=== PATIENT | female | born 1940 | race Caucasian/White ===

== ENCOUNTER 2019-07-06 13:42 | Outpatient (CLI) | payer MEDICARE, SELFPAY ==
--- NOTE | ~2019-07-06 | DEXA_ITS ---
Bone Density Report Name: Tyra Justice Age: 78 Sex: Female Ethnicity: White Date of : 1940 Indication: postmenopausal; height loss; asthma or emphysema; hysterectomy; Referring Provider: CAITY, MARIA LUISA Stanford Study: Bone densitometry was performed. Exam Date: July 06, 2019 Accession number: [id number] Bone Density: Region BMD T-score Z-score Classification AP Spine (L1-L4) 0.938 -1.0 1.6 Normal Femoral Neck (Left) 0.622 -2.0 0.2 Osteopenia Total Hip (Left) 0.792 -1.2 0.7 Osteopenia Total Hip Bilateral Avg 0.799 -1.2 0.8 Osteopenia Femoral Neck (Right) 0.560 -2.6 -0.4 Osteoporosis Total Hip (Right) 0.804 -1.1 0.8 Osteopenia World Health Organization criteria for BMD impression classify patients as: Normal (T-score at or above -1.0), Osteopenia (T-score between -1.0 and -2.5), or Osteoporosis (T-score at or below -2.5). 10-year Fracture Risk: FRAX not reported because: Some T-score for Spine Total or Hip Total or Femoral Neck at or below -2.5 Clinical Information Provided by Patient: Has used the following medications: Calcium Has the following medical conditions: Asthma or Emphysema, Hysterectomy Patient maximum height was 62 Menopause Age: 36 No regular weight bearing exercise Onset of menses at age 11 Number of children 3 Impression: The patient has osteoporosis, based on the Right Femoral Neck T-score. Discussion: INCREASED RISK OF FRACTURE. BONE DENSITY IS UNDESIRABLY LOW AT ONE OR MORE SKELETAL SITES, CONSISTENT WITH POSTMENOPAUSAL OSTEOPOROSIS. This patient's lowest T-score meets the World Health Organization's (WHO) criteria for osteoporosis at one or more sites (T-score -2.5 or below). In untreated patients, the risk of osteoporotic fracture increases approximately two-fold for each 1.0 SD decrease in T-score. Low bone density is not the only risk factor for fracture; also consider factors such as patient's age, frailty or poor health, risk of falling, risk of injury, previous osteoporotic fracture, family history of osteoporosis, cigarette smoking, low body weight, etc. Not everyone with low bone mineral density has osteoporosis; osteomalacia and other metabolic bone disorders should also be considered. Patients who have osteoporosis should be evaluated for specific diseases and conditions (secondary causes) that may cause or contribute to bone loss. The [place] Association of Clinical Endocrinologists (AACE) and National Osteoporosis Foundation (NOF) recommend pharmacologic intervention for all postmenopausal women whose T-score is in this range. The patient should follow a healthful lifestyle (good nutrition with adequate calcium and vitamin D, and appropriate weight-bearing exercise). Follow-Up: Consider a repeat BMD and Vertebral Fracture Assessment (VFA) exam in 2 years or sooner if m
--- NOTE | ~2019-07-06 | MM_ITS ---
EXAMINATION: MM screening [facility] BI w jimbo HISTORY: Screening mammogram TECHNIQUE: Craniocaudal and mediolateral oblique 3-D tomosynthesis images were obtained and synthetic 2-D images were generated. CAD analysis was submitted and interpreted. COMPARISON: 06/16/2014 BREAST PARENCHYMAL COMPOSITION: The breasts are almost entirely fatty. FINDINGS: Scattered benign-appearing calcifications are present. There is no evidence of suspicious m ass, calcification, or architectural distortion to suggest malignancy in either breast. There has bee n no suspicious interval change. IMPRESSION: 1. No mammographic evidence of malignancy. 2. Recommend routine screening mammography in one year. BI-RADS Category 2: Benign finding(s). Reviewed, dictated and finalized at location A.
== END 2019-07-06 13:43 | disposition home or self-care (01) ==
PROVIDERS: PCP Internal Medicine; Visit Provider Internal Medicine
DX: Z12.31 Encounter for screening mammogram for malignant neoplasm of breast (principal); Z78.0 Asymptomatic menopausal state; M85.89 Other specified disorders of bone density and structure, multiple sites; M81.0 Age-related osteoporosis without current pathological fracture
CPT/HCPCS: 77063; 77067; 77080

== ENCOUNTER 2021-04-12 00:39 | Day surgery (SDC) | payer MEDICARE, SELFPAY ==
[2021-03-23 15:07] VITALS: BMI 35.6
--- NOTE | 2021-04-12 07:22 | PM.HPGS ---
History of Present Illness History of Present Illness Consent: Risks, benefits, and alternatives have been discussed and questions answered. Patient agrees to proceed with procedure. Chief complaint: hx of colon polyps Narrative: Tyra Justice is a 80 year old female referred for colon cancer screening. She has a very strong family history of colon cancer. Her sister had colon cancer twice. A grandmother had colon cancer. One niece had colon cancer at a young age. Review of Systems Review of Systems: All systems reviewed & are unremarkable except as noted in HPI and below PMFSH Family History Family History Sibling Family history of alcoholism Family history of heart disease in male family member before age 55 Father Family history of lung cancer Family history of heart disease in male family member before age 55 Other Diabetes mellitus Hypertension Social History Social History Smoking packs per day: 4 Smoking cigarettes per day: 80.0 Years smoked: 60 Smoking pack-years: 240.00 Alcohol intake: never Meds Home Medications and Allergies Home Medications Medication Instructions Recorded Confirmed Type albuterol sulfate [ProAir HFA] 1 inh INHALATION QID PRN 03/23/21 03/23/21 History aspirin 81 mg PO DAILY 03/23/21 03/23/21 History atorvastatin 40 mg PO DAILY 03/23/21 03/23/21 History calcium 500 mg PO DAILY 03/23/21 03/23/21 History famotidine 20 mg PO BID 03/23/21 03/23/21 History glimepiride 4 mg PO BID 03/23/21 03/23/21 History hydrocodone-acetaminophen 1 tablet PO BID PRN 03/23/21 03/23/21 History lisinopril 10 mg PO DAILY 03/23/21 03/23/21 History mecobalamin (vitamin B12) 500 mcg PO DAILY 03/23/21 03/23/21 History melatonin 10 mg PO HS PRN 03/23/21 03/23/21 History metformin 500 mg PO BID 03/23/21 03/23/21 History qszinhhsxjfo-ojx-xjwc-FA-vit K 1 tablet PO DAILY 03/23/21 03/23/21 History [Adults Multivitamin] theophylline 300 mg PO BID 03/23/21 03/23/21 History vit C-E-zinc sk-tbej-wsr-zeax 2 cap PO DAILY 03/23/21 03/23/21 History [ICaps AREDS2] Allergies Allergy/AdvReac Type Severity Reaction Status Date / Time ioversol Allergy Unknown Unknown Verified 04/12/21 09:15 codeine AdvReac Intermediate NAUSEA/VOMI Verified 04/12/21 09:15 TING Contrast Media Allergy Severe CARDIA/RESP Uncoded 04/12/21 09:15 ARREST Exam Const: General: alert Orientation/consciousness: patient oriented x3 Resp: Auscultation: clear to auscultation bilaterally Cardio: Rhythm: regular rhythm GI: GI Palp: Yes Soft to palpation and No Tenderness to palpation present (GI) Neuro: General: patient oriented x3 Assessment and Plan Assessment and plan (1) Colon cancer screening: Code(s): Z12.11 - Encounter for screening for malignant neoplasm of colon Status: Acute Assessment and Plan: Colonoscopy with possible biopsy or polypectomy or cautery or injection of substances.
[2021-04-12 09:16] VITALS: BP 149/60; PULSE 77; RESP 18; TEMP 36.3; O2SAT 96
[2021-04-12] MEDS: LACTATED RINGERS 1,000 ML 150 ML IV CONT (09:41)
[2021-04-12 09:46] LABS: Glucose Point of Care 170 mg/dl (65-105)
--- NOTE | 2021-04-12 10:09 | WPDANESEPPF ---
Anes - Initial Pre Proc Eval Procedure: Operation Date: 04/12/21 10:15 Proposed Procedures p Screening Colonoscopy - Carlos A Sheldon MD Date/Time: 04/12/21 10:09 Surgeon: Carlos A Sheldon MD Pre Op Diagnosis: hx of colon polyps Patient Data Age: 80 Gender: F Height: 1.5 m Weight: 72.1 kg Last Vital Signs Temp 97.4 F L 04/12/21 09:16 Pulse 77 04/12/21 09:16 Resp 18 04/12/21 09:16 BP 149/60 H 04/12/21 09:16 Pulse Ox 96 04/12/21 09:16 Allergies Allergy/AdvReac Type Severity Reaction Status Date / Time ioversol Allergy Unknown Unknown Verified 04/12/21 09:15 codeine AdvReac Intermediate NAUSEA/VOMI Verified 04/12/21 09:15 TING Contrast Media Allergy Severe CARDIA/RESP Uncoded 04/12/21 09:15 ARREST Home Medications Medication Instructions Recorded Confirmed Type albuterol sulfate [ProAir HFA] 1 inh INHALATION QID PRN 03/23/21 03/23/21 History aspirin 81 mg PO DAILY 03/23/21 03/23/21 History atorvastatin 40 mg PO DAILY 03/23/21 03/23/21 History calcium 500 mg PO DAILY 03/23/21 03/23/21 History famotidine 20 mg PO BID 03/23/21 03/23/21 History glimepiride 4 mg PO BID 03/23/21 03/23/21 History hydrocodone-acetaminophen 1 tablet PO BID PRN 03/23/21 03/23/21 History lisinopril 10 mg PO DAILY 03/23/21 03/23/21 History mecobalamin (vitamin B12) 500 mcg PO DAILY 03/23/21 03/23/21 History melatonin 10 mg PO HS PRN 03/23/21 03/23/21 History metformin 500 mg PO BID 03/23/21 03/23/21 History bimwqaiplyds-kee-umcw-FA-vit K 1 tablet PO DAILY 03/23/21 03/23/21 History [Adults Multivitamin] theophylline 300 mg PO BID 03/23/21 03/23/21 History vit C-E-zinc mg-dvvd-mzw-zeax 2 cap PO DAILY 03/23/21 03/23/21 History [ICaps AREDS2] Laboratory Tests 04/12/21 09:41 POC Capillary Glucose 170 mg/dl H mg/dl (65-105) Patient hx anesthesia problems: none Family hx anesthesia problems: none Results Review: All pre-operative results and documents have been reviewed as part of the pre-operative evaluation. [facility] Family History Family History Sibling Family history of alcoholism Family history of heart disease in male family member before age 55 Father Family history of lung cancer Family history of heart disease in male family member before age 55 Other Diabetes mellitus Hypertension Social History Social History Smoking packs per day: 4 Smoking cigarettes per day: 80.0 Years smoked: 60 Smoking pack-years: 240.00 Alcohol intake: never Anes - Eval Final PreProcedure Day of Procedure 04/12/21 10:09 Patient weight: overweight Heart: regular rate and rhythm Lungs: clear to auscultation Airway: Mallampati scale class II Neurological: alert and oriented Last oral intake: >/= 8 hours ASA classification: III Emergent: no Anesthetic plan: proceed Anesthesia type and monitoring: general GIVS and standard monitoring Results Review: All pre-operative results and documents have been reviewed as part of the pre-operative evaluation. Informed Consent: The patient's anesthetic plan and its attendant risks and benefits were discussed with the patient/family/POA. Questions were solicited and answers provided to the satisfaction of the patient/family/POA.
[2021-04-12 10:29] VITALS: BP 107/55; PULSE 72; RESP 21; O2SAT 94
[2021-04-12 10:39] VITALS: BP 115/60; PULSE 66; RESP 17; O2SAT 98
[2021-04-12 10:49] VITALS: BP 124/57; PULSE 82; RESP 17; O2SAT 97
[2021-04-12 10:49] LABS: Glucose Point of Care 142 mg/dl (65-105)
== END 2021-04-12 10:55 | disposition home or self-care (01) ==
PROVIDERS: PCP Internal Medicine; Visit Provider Internal Medicine Gastroenterology
PROC: 0DJD8ZZ Inspection of Lower Intestinal Tract, Via Natural or Artificial Opening Endoscopic (ICD-10-PCS; CPT 45378; principal; 2021-04-12 10:15)
DX: Z12.11 Encounter for screening for malignant neoplasm of colon (principal); K57.30 Diverticulosis of large intestine without perforation or abscess without bleeding; K64.8 Other hemorrhoids; Z86.010 Personal history of colon polyps; Z80.0 Family history of malignant neoplasm of digestive organs; Z79.51 Long term (current) use of inhaled steroids; Z79.84 Long term (current) use of oral hypoglycemic drugs; Z79.82 Long term (current) use of aspirin; F17.210 Nicotine dependence, cigarettes, uncomplicated
CPT/HCPCS: G0105; 82948; J2704; J7120

== ENCOUNTER 2021-09-29 09:35 | Outpatient (CLI) | payer MEDICARE, SELFPAY ==
--- NOTE | ~2021-09-29 | MM_ITS ---
EXAMINATION: MM screening [facility] BI w jimbo HISTORY: Screening mammogram TECHNIQUE: Craniocaudal and mediolateral oblique 3-D tomosynthesis images were obtained and synthetic 2-D images were generated. CAD analysis was submitted and interpreted. COMPARISON: 07/06/2019, 06/16/2014 bilateral screening mammogram examinations BREAST PARENCHYMAL COMPOSITION: There are scattered areas of fibroglandular density. FINDINGS: There are scattered benign calcifications throughout both breasts. There is no evidence of suspicious mass, calcification, or architectural distortion to suggest malignancy in either breast. T here has been no suspicious interval change. IMPRESSION: 1. No mammographic evidence of malignancy. 2. Recommend routine screening mammography in one year. BI-RADS Category 2: Benign finding(s). Reviewed, dictated and finalized at location A.
--- NOTE | ~2021-09-29 | DEXA_ITS ---
Bone Density Report Name: LULA TOLEDO Age: 81 Sex: Female Ethnicity: White Date of : 1940 Indication: postmenopausal; screening for osteoporosis; height loss; Referring Provider: WINSTON, MARIA LUISA Stanford Study: Bone densitometry was performed. Exam Date: September 29, 2021 Accession number: [id number] Bone Density: Region BMD T-score Z-score Classification AP Spine(L1-L4) 0.978 -0.6 2.1 Normal Femoral Neck (Right) 0.562 -2.6 -0.3 Osteoporosis Total Hip (Right) 0.733 -1.7 0.4 Osteopenia World Health Organization criteria for BMD impression classify patients as: Normal (T-score at or above -1.0), Osteopenia (T-score between -1.0 and -2.5), or Osteoporosis (T-score at or below -2.5). 10-year Fracture Risk: FRAX not reported because: Some T-score for Spine Total or Hip Total or Femoral Neck at or below -2.5 Clinical Information Provided by Patient: Has used the following medications: Vitamin D, Calcium Patient maximum height was 62 Menopause Age: 36 Onset of menses at age 11 Number of children 3 Impression: The patient has osteoporosis, based on the Right Femoral Neck T-score. Discussion: INCREASED RISK OF FRACTURE. BONE DENSITY IS UNDESIRABLY LOW AT ONE OR MORE SKELETAL SITES, CONSISTENT WITH POSTMENOPAUSAL OSTEOPOROSIS. This patient's lowest T-score meets the World Health Organization's (WHO) criteria for osteoporosis at one or more sites (T-score -2.5 or below). In untreated patients, the risk of osteoporotic fracture increases approximately two-fold for each 1.0 SD decrease in T-score. Low bone density is not the only risk factor for fracture; also consider factors such as patient's age, frailty or poor health, risk of falling, risk of injury, previous osteoporotic fracture, family history of osteoporosis, cigarette smoking, low body weight, etc. Not everyone with low bone mineral density has osteoporosis; osteomalacia and other metabolic bone disorders should also be considered. Patients who have osteoporosis should be evaluated for specific diseases and conditions (secondary causes) that may cause or contribute to bone loss. The [place] Association of Clinical Endocrinologists (AACE) and National Osteoporosis Foundation (NOF) recommend pharmacologic intervention for all postmenopausal women whose T-score is in this range. The patient should follow a healthful lifestyle (good nutrition with adequate calcium and vitamin D, and appropriate weight-bearing exercise). Follow-Up: Consider a repeat BMD and Vertebral Fracture Assessment (VFA) exam in 2 years or sooner if medically necessary, to reassess this patient's status. Reported by: MINI on 09/29/2021 10:02:00 AM. Reviewed, dictated and finalized at location AAristides ALMEIDA
== END 2021-09-29 09:36 | disposition home or self-care (01) ==
LOC: ANHIMG 09:36
PROVIDERS: PCP Internal Medicine; Visit Provider Internal Medicine
DX: Z12.31 Encounter for screening mammogram for malignant neoplasm of breast (principal); Z78.0 Asymptomatic menopausal state; M81.0 Age-related osteoporosis without current pathological fracture
CPT/HCPCS: 77063; 77067; 77080

== ENCOUNTER 2024-04-27 15:05 | Outpatient (CLI) | payer MEDICARE, SELFPAY ==
--- NOTE | ~2024-04-27 | DEXA_ITS ---
Bone Density Report Name: LULA TOLEDO Age: 83 Sex: Female Ethnicity: White Date of : 1940 Indication: osteopenia; monitoring treatment; height loss; hysterectomy; Referring Provider: CAITY, MARIA LUISA Stanford Study: Bone densitometry was performed. Exam Date: April 27, 2024 Accession number: [id number] Bone Density: Region BMD T-score Z-score Classification AP Spine(L1-L4) 0.901 -1.3 1.5 Osteopenia Femoral Neck (Left) 0.501 -3.1 -0.7 Osteoporosis Total Hip (Left) 0.701 -2.0 0.2 Osteopenia Femoral Neck (Right) 0.663 -1.7 0.7 Osteopenia Total Hip (Right) 0.731 -1.7 0.5 Osteopenia Total Hip Mean 0.716 -1.9 0.4 Osteopenia World Health Organization criteria for BMD impression classify patients as: Normal (T-score at or above -1.0), Osteopenia (T-score between -1.0 and -2.5), or Osteoporosis (T-score at or below -2.5). 10-year Fracture Risk: FRAX not reported because: Some T-score for Spine Total or Hip Total or Femoral Neck at or below -2.5 Treated for osteoporosis Previous Exams: Region Exam Age BMD T-score BMD Change BMD Change Date g/cm2 vs Baseline vs Previous AP Spine (L1-L4) 04/27/2024 83 0.901 -1.3 -0.037 (-4.0%) -0.077 (-7.9%) 09/29/2021 81 0.978 -0.6 0.040 (4.3%)* 0.040 (4.3%)* 07/06/2019 78 0.938 -1.0 Total Hip(Left) 04/27/2024 83 0.701 -2.0 -0.091 (-11.5% -0.091 (-11.5% 07/06/2019 78 0.792 -1.2 Total Hip(Right) 04/27/2024 83 0.731 -1.7 -0.073 (-9.1%) -0.002 (-0.3%) 09/29/2021 81 0.733 -1.7 -0.071 (-8.9%) -0.071 (-8.9%) 07/06/2019 78 0.804 -1.1 *Denotes significance at 95% confidence level, LSC for AP Spine = 0.022 g/cm2, LSC for Total Hip = 0.027 g/cm2 # Denotes dissimilar scan types or analysis methods Clinical Information Provided by Patient: Is being treated for osteoporosis Has used the following medications: Vitamin D, Calcium Has the following medical conditions: Hysterectomy Patient maximum height was 62 Menopause Age: 36 No regular weight bearing exercise Onset of menses at age 11 Number of children 3 Impression: The patient has osteoporosis, based on the Left Femoral Neck T-score. No significant bone loss was observed. Discussion: PATIENT UNDER TREATMENT WITH NO SIGNIFICANT BMD LOSS SINCE LAST EXAM. In an untreated patient, BMD typically declines with age. A lack of decline or gain is usually a sign that treatment is efficacious and fracture risk is reduced. It is important to ask patients whether they are taking their medications and to encourage continued and appropriate compliance with their osteoporosis therapies to reduce fracture risk. It is also important to review their risk factors and encourage appropriate calcium and vitamin D intakes, exercise, fall prevention and other lifestyle measures. Follow-Up: Consider a repeat BMD and Vertebral Fracture Assessment (VFA) exam in 2 years or sooner if medically necessary, to reassess this patient's status. Reported by: JOSR on 04/27/2024 3:54:00 PM. Reviewed, dictated and finalized at location A. JUAN PABLO
--- NOTE | ~2024-04-27 | MM_ITS ---
EXAMINATION: MM screening [facility] BI w jimbo HISTORY: Screening TECHNIQUE: Craniocaudal and mediolateral oblique 3-D tomosynthesis images were obtained and synthetic 2-D images were generated. CAD analysis was submitted and interpreted. COMPARISON: Comparison to multiple prior studies sequentially, with oldest reviewed study dated 06/16. BREAST PARENCHYMAL COMPOSITION: There are scattered areas of fibroglandular density. FINDINGS: There is no evidence of suspicious mass, calcification, or architectural distortion to sugg est malignancy in either breast. There has been no suspicious interval change. IMPRESSION: 1. No mammographic evidence of malignancy. 2. Recommend routine screening mammography in one year. BI-RADS Category 1: Negative Reviewed, dictated and finalized at location A. 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
--- OUTSIDE RECORDS SUMMARY | 2024-04-30 14:18 | XMS_ITS | Referral Summary ---
Author Organization [facility] Address [address] [place] [phone] Care Team Providers Care Coo & Co Founder Name Role Phone Dain Rendon MD Primary Care Provider Encounters Date Type Department Care Team Description 03/18/2024 2:00 PM SURFACE GRINDING MACHINE HAND Office Visit [facility] Cardiology [address] [facility] [address] [place] [address] Chan Ortiz MD ESPINO (dyspnea on exertion) (Primary Dx); Hypertension associated with diabetes (HCC); PSVT (paroxysmal supraventricular tachycardia) (HCC); Chronic obstructive pulmonary disease, unspecified COPD type (HCC); History of tobacco abuse from Last 3 Months Allergies Active Allergy Reactions Criticality Noted Date Comments Cat Dander Codeine Iodinated Contrast Media Anaphylaxis High 06/08/2020 Poison Razia Extract Rosiglitazone Other (See comments) Low 06/16/2020 Shellfish Containing Products Unknown 2020 Medications famotidine (PEPCID) 20 mg tablet Take 1 tablet (20 mg total) by mouth 03/30/20 20 Active albuterol HFA (PROVENTIL HFA,VENTOLIN HFA,PROAIR HFA) 90 mcg/actuation inhaler Active lisinopriL (PRINIVIL,ZEST RIL) 10 mg tablet Take 1 tablet (10 mg total) by mouth daily 06/03/19 21 Active Lantus Solostar U-100 Insulin 100 unit/mL (3 mL) insulin pen 40 Units 05/23/19 21 Active sertraline (ZOLOFT) 50 mg tablet sertraline 50 mg tablet Take 1 tablet by mouth once daily Active HYDROcodone-ac etaminophen (HYCET) solution 7.5-325 mg/15 mL every 6 (six) hours as needed Active aspirin 81 mg enteric coated tablet Take 1 tablet (81 mg total) by mouth daily Active glimepiride (AMARYL) 4 mg tablet glimepiride 4 mg tablet Take 1 tablet by mouth twice daily Active metFORMIN (GLUCOPHAGE) 500 mg tablet Take 1 tablet (500 mg total) by mouth 2 (two) times a day 06/03/19 21 Active multivitamin capsule Take 1 capsule by mouth daily Active cyanocobalamin (Vitamin B-12) 100 mcg tabletIndicati ons:Prevention of Vitamin B12 Deficiency Take 1 tablet (100 mcg total) by mouth daily Active melatonin tablet Take by mouth Active theophylline anhydrous (THEOCHRON ORAL) Take 300 mg by mouth Active calcium citrate-vitami n D2 250-100 mg-unit per tablet Take 1 tablet by mouth 2 (two) times a day Active vit A/vit C/vit E/zinc/copper (PRESERVISION AREDS ORAL) Take by mouth 2 (two) times a day Active metoprolol XL (TOPROL-XL) 25 mg extended release tablet TAKE 1 TABLET(25 MG) BY MOUTH DAILY 90 tablet 02/17/20 24 Active atorvastatin (LIPITOR) 40 mg tablet TAKE 1 TABLET(40 MG) BY MOUTH DAILY 90 tablet 04/29/19 25 Active atorvastatin (LIPITOR) 40 mg tablet TAKE 1 TABLET(40 MG) BY MOUTH DAILY 90 tablet 12/30/19 24 025 Discontinued Active Problems Problem Noted Date Diagnosed Date Vaginal atrophy 03/19/2016 Vaginal bleeding 03/19/2016 Type 2 diabetes mellitus 08/22/2013 Overview (07/12/2016): DMII WO CMP UNCNTRLD Pure hypercholesterolemia 08/22/2013 Overview (07/12/2016): PURE HYPERCHOLESTEROLEM Social History Tobacco Use Types Packs/Day Years Used Date Smoking Tobacco: Former Smokeless Tobacco: Never Tobacco Cessation:Counseling Given: Not Answered Alcohol Use Standard Drinks/Week Comments No 0 (1 standard drink = 0.6 oz pur e alcohol) Comments Unknown Sex and Gender Information Value Date Recorded Sex Assigned at Not on file Legal Sex Female 12:27 AM SURFACE GRINDING MACHINE HAND Gender Identity Not on file Sexual Orientation Not on file Last Filed Vital Signs Vital Sign Reading Time Taken Comments Blood Pressure 136/60 03/18/2024 2:12 PM SURFACE GRINDING MACHINE HAND Pulse 75 03/18/2024 2:12 PM SURFACE GRINDING MACHINE HAND Temperature - - Respiratory Rate - - Oxygen Saturation 97% 03/18/2024 2:12 PM SURFACE GRINDING MACHINE HAND Inhaled Oxygen Concentration - - Weight 68.9 kg (152 lb) 03/18/2024 2:12 PM SURFACE GRINDING MACHINE HAND Height 149.9 cm (4' 11 ) 03/18/2024 2:12 PM SURFACE GRINDING MACHINE HAND Body Mass Index 30.7 03/18/2024 2:12 PM SURFACE GRINDING MACHINE HAND Plan of Treatment Not on file Procedures Procedure Name Priority Date/Time Associated Diagnosis Comments SERUM LIPID PANEL Routine 11/09/2015 11: 10 PM CDT from Last 3 Months or Most Recently Relevant to Health Maintenance Results * (ABNORMAL) Serum lipid panel (11/09/2015 11:10 PM CDT) Cholesterol 107 30 - 200 mg/dl [facility] Comment: Interpretive Data Desirable: ?<200 mg/dL Borderline high: ??200-239 mg/dL High: ? > or = 240 mg/dL Literature Reference: National Cholesterol Education Program (NCEP) Expert Panel on Detection, Evaluation, and Treatment of High Blood Cholesterol in Adults (Adult Treatment Panel III). ??Circulation 2004; 110:227. Current interpretive data was last revised on 2015. Triglycerides 122 0 - 150 mg/dl [facility] Comment: Interpretive Data Desirable: ? < 150 mg/dL Borderline High: ? 150 - 199 mg/dL High: ?200 - 499 mg/dL Very High: ? > or = 499 mg/dL Literature Reference: See Cholesterol Current interpretive data was last revised on 2015. HDL 35(L) >=40 mg/dl [facility] Comment: Interpretive Data Less than 40 mg/dL - low; A major risk factor for heart disease. Greater than or equal to 60 mg/dL - High; ??considered protective of heart disease. Literature Reference: See Cholesterol Current interpretive data was last revised on 2015. LDL 48 10 - 129 mg/dl [facility] Comment: Interpretive Data Optimal: ? < 100 mg/dL Near Optimal: ?100 - 129 mg/dL Borderline High: ?? 130 - 159 mg/dL High: ?160 - 189 mg/dL Very high: ? > or = 190 mg/dL Literature Reference: See Cholesterol Current interpretive data was last revised on 2015. Non-HDL cholesterol, calculated 72 mg/dl [facility] Comment: Interpretive Data When triglycerides are >200 mg/dL, non-HDL C is a secondary target of therapy, with a goal 30 mg/dL higher than the identified LDL-C goal. Reference: ??See Cholesterol Reference. Current interpretive data was last revised 2015. Serum 11/09/2015 11:1 0 PM CDT us Yasmany Lopez MD LAB BLOOD ORDERABLES Final Result [facility] from Last 3 Months or Most Recently Relevant to Health Maintenance Insurance MEDICARE [employer]UT[employer] [facility] Address: [facility] [address] [place] [address] [place] [address] [employer] Care Teams Coo & Co Founder Relationship Specialty Start Date End Date Dain Rendon MD PCP - General 01/02/10
--- OUTSIDE RECORDS SUMMARY | 2024-04-30 14:18 | XMS_ITS | Clinical Summary ---
Author Organization [facility] Address [address] [place] [phone] Care Team Providers Care Fence Erector Name Role Phone Dain Rendon MD Primary Care Provider Allergies Active Allergy Reactions Criticality Noted Date [...] Pure hypercholesterolemia 08/22/2013 Overview (07/12/2016): PURE HYPERCHOLESTEROLEM Encounters Date Type Department Care Team Description 03/18/2024 2:00 PM FINANCIAL AID Office Visit [facility] Medical Group Cardiology [address] [place] [address] Chan Ortiz MD ESPINO (dyspnea on exertion) (Primary Dx); Hypertension associated with diabetes (HCC); PSVT (paroxysmal supraventricular tachycardia) (HCC); Chronic obstructive pulmonary disease, unspecified COPD type (HCC); History of tobacco abuse from Last 3 Months Surgical History Surgery Date Site/Laterality Comments CHOLECYSTECTOMY 1982 Cholecystectomy TONSILLECTOMY Tonsillectomy HIP ARTHROPLASTY Hip replacement IN APPENDECTOMY Appendectomy - (Added by TW Conv) IN TONSILLECTOMY PRIMARY/SEC ONDARY <AGE 13 Tonsillectomy - (Added by TW Conv) GALLBLADDER SURGERY Gallbladder Surgery - (Added by TW Conv) HIP SURGERY Hip Surgery - (Added by TW Conv) IN HEMORRHOIDECTOMY INTERNAL RUBBER BAND LIGATIONS Hemorrhoidectomy - (Added by TW Conv) ROTATOR CUFF REPAIR Rotator Cuff Repair - (Added by TW Conv) IN BIOPSY BREAST OPEN INCISIONAL Incisional Breast Biopsy - (Added by TW Conv) IN LAPS ABD PRTM&OMENTUM DX W/WO SPEC BR/WA SPX Laparoscopy (Diagnostic) - (Added by TW Conv) IN CYSTO W/INSERT URETERAL STENT Cystoscopy With Insertion Of Ureteral Stent - (Added by TW Conv) IN SLING OPERATION STRESS INCONTINENCE Vaginal Sling Operation For Stress Incontinence - (Added by TW Conv) IN CMBND ANTERPOST COLPORRAP HY W/CYSTO W/NTRCL RPR Colporrhaphy Combined A-P And Enterocele Repair - (Added by TW Conv) IN COLPOCLEISIS [place] TYPE Vaginal Colpocleisis ([place] Procedure) - (Added by TW Conv) IN VAGINECTOMY COMPLETE ENRIQUE JINNY VAGINAL WALL Vaginectomy Complete - (Added by TW Conv) Medical History Medical History Date Comments Hypertension Hypertension Type 2 diabetes mellitus (HCC) D iabetes type 2 Personal history of other di seases of the circulatory system History of hypertension - (A dded by TW Conv) Personal history of other en docrine, nutritional and metabolic disease History of diabetes mellitus - (Added by TW Conv) snf current use of aspirin Current use of aspirin - (Added by TW Conv) Personal history of other di seases of the musculoskeletal system and connective tissue History of arthritis - (Adde d by TW Conv) Personal history of other en docrine, nutritional and metabolic disease History of hyperlipi demia - (Added by TW Conv) Personal history of other di seases of the respiratory system History of chronic obstructi ve lung disease - (Added by TW Conv) Injury of ureter Right ureteral injury - (Added by TW Conv) Personal history of other di seases of urinary system History of hematuria - (Adde d by TW Conv) Prolapse of vaginal vault af ter hysterectomy Vaginal vault prolapse after hysterectomy - (Added by TW Conv) Rectocele Rectocele - (Add ed by TW Conv) Cystocele, midline Midline cysto brice - (Added by TW Conv) Retention of urine Incomplete bl adder emptying - (Added by TW Conv) Personal history of other di seases of urinary system History of hydronephrosis - (Added by TW Conv) Personal history of other sp ecified conditions History of urinary incontine nce - (Added by Conv) Hyperlipidemia Obesity Wears dentures Acid indigestion Gallstones Diverticulitis Pneumonia Cataracts, bilateral COPD (chronic obstructive pu lmonary disease) (HCC) Arthritis Family History Medical History Relation Name Comments Diabetes type II Brother 1 Diabetes -T ype 2; Diabetes Brother 2 Family history of diabetes mellitus - (Added by Conv) Alcohol abuse Brother 3 Family history of alcoholism - (Added by Conv) Coronary artery disease Father Janet nary artery disease; Heart attack Father Family history of myocardial infarction - (Added by Conv) Lung cancer Father Family history of lung cancer - (Added by Conv) Pancreatic cancer Mother Cancer -pa ncreatic; /Family history of pancreatic cancer - (Added by Conv) Diabetes type II Other 1 Family hist ory of Diabetes -Type 2; Hypertension Other 2 Family history of Hypertension; Colon cancer Sister Colon cancer - (Added by Conv) Relation Name Status Comments Brother 1 Brother 2 Brother 3 Father (Age 81) Mother (Age 60) Other 1 Other 2 Sister Social History Tobacco Use Types Packs/Day Years Used Date Smoking Tobacco: Former Smokeless Tobacco: Never Tobacco Cessation:Counseling Given: Not Answered Alcohol Use Standard Drinks/Week Comments No 0 (1 standard drink = 0.6 oz pur e alcohol) Comments Unknown Sex and Gender Information Value Date Recorded Sex Assigned at Not on file Legal Sex Female 12:27 AM FINANCIAL AID Gender Identity Not on file Sexual Orientation Not on file Obstetrics History Last Filed Vital Signs Vital Sign Reading Time Taken Comments Blood Pressure 136/60 03/18/2024 2:12 PM FINANCIAL AID Pulse 75 03/18/2024 2:12 PM FINANCIAL AID Temperature - - Respiratory Rate - - Oxygen Saturation 97% 03/18/2024 2:12 PM FINANCIAL AID Inhaled Oxygen Concentration - - Weight 68.9 kg (152 lb) 03/18/2024 2:12 PM FINANCIAL AID Height 149.9 cm (4' 11 ) 03/18/2024 2:12 PM FINANCIAL AID Body Mass Index 30.7 03/18/2024 2:12 PM FINANCIAL AID Plan of Treatment Health Maintenance Due Date Last Done Comments Albumin Creatinine Ratio, Urine 1941 Depression Screening 1941 Fall Risk Assessment 1941 Hemoglobin A1C 1941 Osteoporosis Screening-Bone Density Scan 1941 eGFR 1941 Dilated Eye Exam 1941 Foot Exam 1941 DTaP/Tdap/Td Vaccine (1 - Tdap) 1952 Hepatitis B Screening 07/24/1959 Zoster Vaccine (1 of 2) 07/24/1991 Well Visit 65+ 2006 Lipid Panel 11/08/2016 11/09/2015 Influenza Vaccine (#1) 2023 9, 03/01/2017, 12/28/2015, Additional history exists Pneumococcal vaccine 65+ Completed 020, 09/28/2014, 01/08/2007 Procedures Procedure Name Priority Date/Time Associated Diagnosis [...] Most Recently Relevant to Health [place] [address] [place] [place] [id number] MEDICARE [employer] Care Teams Fence Erector Relationship Specialty Start Date End Date Dain Rendon MD PCP - General 01/02/10
--- OUTSIDE RECORDS SUMMARY | 2024-04-30 14:18 | XMS_ITS | Continuity of Care Document ---
Author Organization [facility] Address [address] [place] [address] [facility] [address] [place] [address] Phone Care Team Providers Care Tobacco Grader Name Role Phone Rian Santizo Unavailable Unavailable Procedures Procedure Date Eye Exam, New Patient Refraction Advance Directives Directive Yes / No Effective Date File Name No Information Encounters Encounter Description Practice Location Reason(s) For Visit Diagnoses Date Provider Providers Copied on Encounter [facility], [address] [place], [place], [id number], [place] tel:[phone] [facility] No Information [address] [facility] [address], [place], [address], [place]. tel:[phone] Family History Family Member Type Diagnosis Age At Onset No Information Payers Payer name Insurance type Covered alliance party ID Authoriza tion(s) No Information Social History [...]
== END 2024-04-27 15:06 | disposition home or self-care (01) ==
LOC: ANHIMG 15:07
PROVIDERS: PCP Internal Medicine; Visit Provider Internal Medicine
DX: M85.89 Other specified disorders of bone density and structure, multiple sites (principal); M81.0 Age-related osteoporosis without current pathological fracture; Z12.31 Encounter for screening mammogram for malignant neoplasm of breast
CPT/HCPCS: 77063; 77067; 77080

== ENCOUNTER 2024-06-05 14:15 | Inpatient (IN) | payer MEDICARE, SELFPAY ==
[2024-06-05] VITALS (8 sets, daily range): BP systolic 111–134; BP diastolic 43–82; PULSE 63–74; RESP 16–20; TEMP 36.9–37; O2SAT 96–99; BMI 28.5
--- NOTE | ~2024-06-05 | XR_ITS ---
XR chest 1V portable Ordering provider: Julian Pierson MD History: 83 years Female with . SHORTNESS OF BREATH . Comparison: June 30, 2007 FINDINGS: MEDIASTINUM: The cardiac silhouette is not enlarged. LUNGS: No infiltrates, effusions or pneumothorax. Underlying emphysematous changes. OTHER: No free air under the diaphragm. Degenerative changes of the spine. IMPRESSION: No acute cardiopulmonary pathology. Reviewed, dictated and finalized at location A. [facility]
--- OUTSIDE RECORDS SUMMARY | 2024-06-05 14:18 | XMS_ITS | Referral Summary ---
Author Organization [facility] Address [address] [place] [id number] Care Team Providers Care Detective Investigator Name Role Phone Dain Rendon MD Primary Care Provider Encounters Date Type Department Care Team Description 05/13/2024 2:00 PM SENIOR JAVA WEB DEVELOPER Ancillary Procedure [facility] Medical [facility] Cardiology [address] [place] [address] ESPINO (dyspnea on exertion); Hypertension associated with diabetes (HCC) 03/18/2024 2:00 PM SENIOR JAVA WEB DEVELOPER Office Visit [facility] Medical [facility] Cardiology [address] [place] [address] Jeannette Owens MD ESPINO (dyspnea on exertion) (Primary Dx); [...] tablet (20 mg total) by mouth 03/30/20 Active albuterol HFA (PROVENTIL HFA,VENTOLIN HFA,PROAIR HFA) [...] mouth 2 (two) times a day Active atorvastatin (LIPITOR) 40 mg tablet TAKE 1 TABLET(40 MG) BY MOUTH DAILY 90 tablet 04/29/19 25 Active metoprolol XL (TOPROL-XL) 25 mg extended release tablet TAKE 1 TABLET(25 MG) BY MOUTH DAILY 90 tablet 1 05/14/19 25 Active metoprolol XL (TOPROL-XL) 25 mg extended release tablet TAKE 1 TABLET(25 MG) BY MOUTH DAILY 90 tablet 02/17/20 24 025 Discontinued Active Problems Problem Noted [...] on file Legal Sex Female 12:27 AM SENIOR JAVA WEB DEVELOPER Gender Identity Not on file Sexual Orientation Not on file Last Filed Vital Signs Vital Sign Reading Time Taken Comments Blood Pressure 136/60 03/18/2024 2:12 PM SENIOR JAVA WEB DEVELOPER Pulse 75 03/18/2024 2:12 PM SENIOR JAVA WEB DEVELOPER Temperature - - Respiratory Rate - - Oxygen Saturation 97% 03/18/2024 2:12 PM SENIOR JAVA WEB DEVELOPER Inhaled Oxygen Concentration - - Weight 68.9 kg (152 lb) 03/18/2024 2:12 PM SENIOR JAVA WEB DEVELOPER Height 149.9 cm (4' 11 ) 03/18/2024 2:12 PM SENIOR JAVA WEB DEVELOPER Body Mass Index 30.7 03/18/2024 2:12 PM SENIOR JAVA WEB DEVELOPER Plan of Treatment Not on file Procedures Procedure Name Priority Date/Time Associated Diagnosis Comments TRANSTHORACIC ECHO (TTE) COMPLETE W DOPPLER/CF WO CONTRAST Routine 05/13/2024 2:34 PM SENIOR JAVA WEB DEVELOPER ESPINO (dyspnea on exertion) Hypertension associated with diabetes (HCC) SERUM LIPID PANEL Routine 11/09/2015 11: 10 PM CDT from Last 3 Months or Most Recently Relevant to Health Maintenance Results * TRANSTHORACIC ECHO (TTE) COMPLETE W DOPPLER/CF WO CONTRAST (05/13/2024 2:34 PM SENIOR JAVA WEB DEVELOPER) LV EF % CONS SCIMAGE Anatomical Region Laterality Modality Ultrasound 05/13/2024 1:58 PM SENIOR JAVA WEB DEVELOPER Narrative 05/13/2024 3:01 PM SENIOR JAVA WEB DEVELOPER [facility] Medical [facility] Cardiology [address], [place] [address] [address] [facility] [address], [place] [address] P:[phone] P:[phone] Echocardiographic Report Patient Name: LULA TOLEDO : 1940 Study Date: 05/13/2024 1:58:54 PM Gender: F Tech: Location: [facility] Provider: JEANNETTE OWENS Height(Cm): 150 BSA: 1.69 Weight(Kg): 68.9 Heart Rate: 94 BP: 136 / 60 Quality: Good Order Provider: JEANNETTE OWENS PROCEDURES: Echocardiographic Report: Transthoracic echocardiogram with complete 2D, M-Mode, and color Doppler examination. With Strain Analysis. INDICATIONS: Diabetes, Hypertension, and Dyspnea on Exertion. MEASUREMENTS: 2D/MM Value Range Doppler Value Range EF Mod BP 75 % [ 54 - 74 ] LYRIC Vmax 2.08 cm2 [ 2.00 - 4.00 ] EF Teich MM 73 % [ 54 - 74 ] AV Mean PG 7 mmHg LVIDd 2D 4.72 cm [ 3.80 - 5.20 ] AV Peak Kenneth 1.89 m/s [ 1.00 - 1.70 ] LVIDd MM 4.70 cm [ 3.80 - 5.20 ] AV Peak PG 14 mmHg LVIDs 2D 2.74 cm [ 2.20 - 3.50 ] AV VTI 27.34 cm LVIDs MM 2.74 cm [ 2.20 - 3.50 ] LVOT Diam 1.95 cm [ 1.70 - 2.10 ] LVPWd 2D 0.96 cm [ 0.60 - 0.90 ] LVOT Peak Kenneth 1.26 m/s [ 0.70 - 1.10 ] LVPWd MM 1.18 cm [ 0.60 - 0.90 ] LVOT VTI 23.03 cm IVSd 2D 1.63 cm [ 0.60 - 0.90 ] MV E Peak Kenneth 0.66 m/s [ 0.60 - 1.30 ] IVSd MM 1.76 cm [ 0.60 - 0.90 ] MV A Peak Kenneth 0.94 m/s [ 1.00 - 1.20 ] LA Dimension MM 3.75 cm [ 2.70 - 3.80 ] MV Decel Time 268 msec [ 104 - 258 ] AoR Diam MM 2.85 cm [ 2.70 - 3.70 ] PV Peak Kenneth 1.06 m/s [ 0.40 - 0.80 ] LA Volume Index 16 cc/m2 [ 16 - 34 ] Lateral E` 0.04 m/s [ 0.10 - 0.15 ] E` 0.07 m/s E/E` 17 2D/MM Value Range Doppler Value Range - FINDINGS: Interpretation Site: Exam was interpreted at [facility]. Left Ventricle: Normal left ventricular size. Moderate concentric left ventricular hypertrophy. Hyperdynamic left ventricular function. No focal wall motion abnormalities. Impaired diastolic relaxation Grade I. Ejection fraction is measured at 75 %. Global Longitudinal Strain is -18 %. Right Ventricle: Normal right ventricular size. Normal right ventricular systolic function. Left Atrium: The left atrium is normal in size. Right Atrium: The right atrium is normal in size. Atrial Septum: Normal atrial septum. Mitral Valve: Mild mitral annular calcification. Aortic Valve: Normal appearance of the aortic valve. No evidence of hemodynamically significant aortic stenosis by Doppler. Tricuspid Valve: Normal appearance of the tricuspid valve. Right ventricular systolic pressure could not be estimated due to inadequate visualization of the tricuspid regurgitation jet. Pulmonic Valve: Normal appearance of the pulmonic valve. Pericardium: Normal pericardium with no significant pericardial effusion. Aorta: Normal aortic root. IVC: Normal size and normal respiratory collapse consistent with normal right atrial pressure (<5 mmHg). CONCLUSIONS: Normal left ventricular size. Moderate to severe LVH. Hyperdynamic left ventricular function. Impaired diastolic relaxation Grade I. Ejection fraction is measured at 75 %. Global Longitudinal Strain is -18 %. Normal right ventricular size. Normal right ventricular systolic function. Mild mitral annular calcification. No significant MR. Normal appearance of the aortic valve. No significant aortic stenosis by Doppler. Right ventricular systolic pressure could not be estimated due to inadequate visualization of the tricuspid regurgitation jet. Electronically Signed By: Jeannette Owens MD, [facility] 05/13/2024 3:00:56 PM SENIOR JAVA WEB DEVELOPER Procedure Note Jeannette Owens MD - 05/13/2024 [facility] Medical Group Cardiology [address] [facility] [address], [place] [address] [address] [facility] [address], [place] [address] P:[phone] P:[phone] Echocardiographic Report Patient Name: LULA TOLEDO : 1940 Study Date: 05/13/2024 1:58:54 PM Gender: F Tech: Location: [facility] Provider: JEANNETTE OWENS Height(Cm): 150 BSA: 1.69 Weight(Kg): 68.9 Heart Rate: 94 BP: 136 / 60 Quality: Good Order Provider: JEANNETTE OWENS PROCEDURES: Echocardiographic Report: Transthoracic echocardiogram with complete 2D, M-Mode, and color Dopplerexamination. With Strain Analysis. INDICATIONS: Diabetes, Hypertension, and Dyspnea on Exertion. MEASUREMENTS: 2D/MM Value Range Doppler ValueRange EF Mod BP 75 % [ 54 - 74 ] LYRIC Vmax 2.08cm2 [ 2.00 - 4.00 ] EF Teich MM 73 % [ 54 - 74 ] AV Mean PG 7mmHg LVIDd 2D 4.72 cm [ 3.80 - 5.20 ] AV Peak Kenneth 1.89m/s [ 1.00 - 1.70 ] LVIDd MM 4.70 cm [ 3.80 - 5.20 ] AV Peak PG 14mmHg LVIDs 2D 2.74 cm [ 2.20 - 3.50 ] AV VTI 27.34cm LVIDs MM 2.74 cm [ 2.20 - 3.50 ] LVOT Diam 1.95 cm[ 1.70 - 2.10 ] LVPWd 2D 0.96 cm [ 0.60 - 0.90 ] LVOT Peak Kenneth 1.26m/s [ 0.70 - 1.10 ] LVPWd MM 1.18 cm [ 0.60 - 0.90 ] LVOT VTI 23.03cm IVSd 2D 1.63 cm [ 0.60 - 0.90 ] MV E Peak Kenneth 0.66m/s [ 0.60 - 1.30 ] IVSd MM 1.76 cm [ 0.60 - 0.90 ] MV A Peak Kenneth 0.94m/s [ 1.00 - 1.20 ] LA Dimension MM 3.75 cm [ 2.70 - 3.80 ] MV Decel Time 268msec [ 104 - 258 ] AoR Diam MM 2.85 cm [ 2.70 - 3.70 ] PV Peak Kenneth 1.06m/s [ 0.40 - 0.80 ] LA Volume Index 16 cc/m2 [ 16 - 34 ] Lateral E` 0.04m/s [ 0.10 - 0.15 ] E` 0.07 m/s E/E` 17 2D/MM Value Range Doppler ValueRange - FINDINGS: Interpretation Site: Exam was interpreted at [facility]. Left Ventricle: Normal left ventricular size. Moderate concentric left ventricularhypertrophy. Hyperdynamic left ventricular function. No focal wall motionabnormalities. Impaired diastolic relaxation Grade I. Ejection fraction is measured at 75 %.Global Longitudinal Strain is -18 %. Right Ventricle: Normal right ventricular size. Normal right ventricular systolicfunction. Left Atrium: The left atrium is normal in size. Right Atrium: The right atrium is normal in size. Atrial Septum: Normal atrial septum. Mitral Valve: Mild mitral annular calcification. Aortic Valve: Normal appearance of the aortic valve. No evidence of hemodynamicallysignificant aortic stenosis by Doppler. Tricuspid Valve: Normal appearance of the tricuspid valve. Right ventricular systolicpressure could not be estimated due to inadequate visualization of the tricuspidregurgitation jet. Pulmonic Valve: Normal appearance of the pulmonic valve. Pericardium: Normal pericardium with no significant pericardial effusion. Aorta: Normal aortic root. IVC: Normal size and normal respiratory collapse consistent with normal rightatrial pressure (<5 mmHg). CONCLUSIONS: Normal left ventricular size. Moderate to severe LVH. Hyperdynamic leftventricular function. Impaired diastolic relaxation Grade I. Ejection fraction ismeasured at 75 %. Global Longitudinal Strain is -18 %. Normal right ventricular size. Normal right ventricular systolicfunction. Mild mitral annular calcification. No significant MR. Normal appearance of the aortic valve. No significant aortic stenosis byDoppler. Right ventricular systolic pressure could not be estimated due toinadequate visualization of the tricuspid regurgitation jet. Electronically Signed By: Jeannette Owens MD, [facility] 05/13/2024 3:00:56 PM SENIOR JAVA WEB DEVELOPER Jeannette Owens MD CV ECHO PROCEDURES Final Result * (ABNORMAL) Serum lipid panel (11/09/2015 11:10 PM CDT) Cholesterol 107 30 - 200 mg/dl [facility] Comment: Interpretive Data Desirable: <200 mg/dL Borderline high: 200-239 mg/dL High: > or = 240 mg/dL Literature Reference: National Cholesterol Education Program (NCEP) Expert Panel on Detection, Evaluation, and Treatment of High Blood Cholesterol in Adults (Adult Treatment Panel III). Circulation 2004; 110:227. Current interpretive data was last revised on 2015. Triglycerides 122 0 - 150 mg/dl [facility] Comment: Interpretive Data Desirable: < 150 mg/dL Borderline High: 150 - 199 mg/dL High: 200 - 499 mg/dL Very High: > or = 499 mg/dL Literature Reference: See Cholesterol Current interpretive data was last revised on 2015. HDL 35(L) >=40 mg/dl [facility] Comment: Interpretive Data Less than 40 mg/dL - low; A major risk factor for heart disease. Greater than or equal to 60 mg/dL - High; considered protective of heart disease. Literature Reference: See Cholesterol Current interpretive data was last revised on 2015. LDL 48 10 - 129 mg/dl [facility] Comment: Interpretive Data Optimal: < 100 mg/dL Near Optimal: 100 - 129 mg/dL Borderline High: 130 - 159 mg/dL High: 160 - 189 mg/dL Very high: > or = 190 mg/dL Literature Reference: See Cholesterol Current interpretive data was last revised on 2015. Non-HDL cholesterol, calculated 72 mg/dl [facility] Comment: Interpretive Data When triglycerides are >200 mg/dL, non-HDL C is a secondary target of therapy, with a goal 30 mg/dL higher than the identified LDL-C goal. Reference: See Cholesterol Reference. Current interpretive data was last revised 2015. Serum 11/09/2015 11:1 0 PM CDT us Yasmany Lopez MD LAB BLOOD ORDERABLES Final Result [facility] from Last 3 Months or Most Recently Relevant to Health Maintenance Insurance MEDICARE SOLUTIONS MEDICARE SOLUTIONS Care Teams Detective Investigator Relationship Specialty Start Date End Date Dain Rendon MD PCP - General 01/02/10
--- OUTSIDE RECORDS SUMMARY | 2024-06-05 14:18 | XMS_ITS | Clinical Summary ---
Author Organization [facility] Address [address] [place] [id number] Care Team Providers Care Supervisor Contact Lens Name Role Phone Dain Rendon MD Primary [...] Department Care Team Description 05/13/2024 2:00 PM WATER INSPECTOR Ancillary Procedure [facility] Medical Group Cardiology [address] [facility] [address] [place] [phone] ESPINO (dyspnea on exertion); Hypertension associated with diabetes (HCC) 03/18/2024 2:00 PM WATER INSPECTOR Office Visit [facility] Medical [facility] Cardiology [address] [facility] [address] [place] [phone] Chan Owens MD ESPINO (dyspnea on exertion) (Primary Dx); Hypertension associated with diabetes (HCC); PSVT (paroxysmal supraventricular tachycardia) (HCC); Chronic obstructive pulmonary disease, unspecified COPD type (HCC); History of tobacco abuse from Last 3 Months Surgical History Surgery Date Site/Laterality Comments CHOLECYSTECTOMY 1982 Cholecystectomy TONSILLECTOMY Tonsillectomy HIP ARTHROPLASTY Hip replacement WV APPENDECTOMY Appendectomy - (Added by TW Conv) WV TONSILLECTOMY PRIMARY/SEC ONDARY <AGE 12 Tonsillectomy - (Added by TW Conv) GALLBLADDER SURGERY Gallbladder Surgery - (Added by TW Conv) HIP SURGERY Hip Surgery - (Added by TW Conv) WV HEMORRHOIDECTOMY INTERNAL RUBBER BAND LIGATIONS Hemorrhoidectomy - (Added by TW Conv) ROTATOR CUFF REPAIR Rotator Cuff Repair - (Added by TW Conv) WV BIOPSY BREAST OPEN INCISIONAL Incisional Breast Biopsy - (Added by TW Conv) WV LAPS ABD PRTM&OMENTUM DX W/WO SPEC BR/WA SPX Laparoscopy (Diagnostic) - (Added by TW Conv) WV CYSTO W/INSERT URETERAL STENT Cystoscopy With Insertion Of Ureteral Stent - (Added by TW Conv) WV SLING OPERATION STRESS INCONTINENCE Vaginal Sling Operation For Stress Incontinence - (Added by TW Conv) WV CMBND ANTERPOST COLPORRAP HY W/CYSTO W/NTRCL RPR Colporrhaphy Combined A-P And Enterocele Repair - (Added by TW Conv) WV COLPOCLEISIS [place] TYPE Vaginal Colpocleisis ([place] Procedure) - (Added by TW Conv) WV VAGINECTOMY COMPLETE ENRIQUE JINNY VAGINAL WALL Vaginectomy [...] diabetes mellitus - (Added by TW Conv) 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 Current use of [...] of urinary incontine nce - (Added by TW Conv) Hyperlipidemia Obesity Wears dentures Acid indigestion Gallstones Diverticulitis Pneumonia Cataracts, bilateral COPD (chronic obstructive pu lmonary disease) (HCC) Arthritis Family History Medical History Relation Name Comments Diabetes type II Brother 1 Diabetes -T ype 2; Diabetes Brother 2 Family history of diabetes mellitus - (Added by TW Conv) Alcohol abuse Brother 3 Family history of alcoholism - (Added by TW Conv) Coronary artery disease Father Janet nary artery disease; Heart attack Father Family history of myocardial infarction - (Added by TW Conv) Lung cancer Father Family history of lung cancer - (Added by TW Conv) Pancreatic cancer Mother Cancer -pa ncreatic; /Family history of pancreatic cancer - (Added by TW Conv) Diabetes type II Other 1 Family hist ory of Diabetes -Type 2; Hypertension Other 2 Family history of Hypertension; Colon cancer Sister Colon cancer - (Added by TW Conv) Relation Name Status Comments Brother 1 [...] on file Legal Sex Female 12:27 AM WATER INSPECTOR Gender Identity Not on file Sexual Orientation Not on file Obstetrics History Last Filed Vital Signs Vital Sign Reading Time Taken Comments Blood Pressure 136/60 03/18/2024 2:12 PM WATER INSPECTOR Pulse 75 03/18/2024 2:12 PM WATER INSPECTOR Temperature - - Respiratory Rate - - Oxygen Saturation 97% 03/18/2024 2:12 PM WATER INSPECTOR Inhaled Oxygen Concentration - - Weight 68.9 kg (152 lb) 03/18/2024 2:12 PM WATER INSPECTOR Height 149.9 cm (4' 11 ) 03/18/2024 2:12 PM WATER INSPECTOR Body Mass Index 30.7 03/18/2024 2:12 PM WATER INSPECTOR Plan of Treatment Health Maintenance Due Date Last Done Comments Albumin Creatinine Ratio, Urine 1940 Depression Screening 1940 Fall Risk Assessment 1940 Hemoglobin A1C 1940 Osteoporosis Screening-Bone Density Scan 1940 eGFR 1940 Dilated Eye Exam 1940 Foot Exam 1940 Hepatitis B Screening 07/24/1959 Zoster Vaccine (1 of 2) 07/24/1991 Well Visit 65+ 2006 DTaP/Tdap/Td Vaccine (1 - Tdap) 10/23/2013 4 Lipid Panel 11/08/2016 11/09/2015 Influenza Vaccine (#1) 2023 9, 03/01/2017, 12/28/2015, Additional history exists Pneumococcal vaccine 65+ Completed 020, 09/28/2014, 01/08/2007 Procedures Procedure Name Priority Date/Time Associated Diagnosis Comments TRANSTHORACIC ECHO (TTE) COMPLETE W DOPPLER/CF WO CONTRAST Routine 05/13/2024 2:34 PM WATER INSPECTOR ESPINO (dyspnea on exertion) Hypertension associated with diabetes (HCC) SERUM LIPID PANEL Routine 11/09/2015 11: 10 PM CDT from Last 3 Months or Most Recently Relevant to Health Maintenance Results * TRANSTHORACIC ECHO (TTE) COMPLETE W DOPPLER/CF WO CONTRAST (05/13/2024 2:34 PM WATER INSPECTOR) LV EF % CONS SCIMAGE Anatomical Region Laterality Modality Ultrasound 05/13/2024 1:58 PM WATER INSPECTOR Narrative 05/13/2024 3:01 PM WATER INSPECTOR [facility] Medical Group Cardiology [address], [place] [address] [address], [place] [address] P:[phone] P:[phone] Echocardiographic Report Patient Name: LULA TOLEDO : 1940 Study Date: 05/13/2024 1:58:54 PM Gender: F Tech: Location: [facility] Provider: CHAN OWENS Height(Cm): 150 BSA: 1.69 Weight(Kg): 68.9 Heart Rate: 94 BP: 136 / 60 Quality: Good Order Provider: CHAN OWENS PROCEDURES: Echocardiographic Report: Transthoracic echocardiogram with [...] FINDINGS: Interpretation Site: Exam was interpreted at [facility]. Left Ventricle: Normal left ventricular size. [...] the tricuspid regurgitation jet. Electronically Signed By: Chan Owens MD, [facility] 05/13/2024 3:00:56 PM WATER INSPECTOR Procedure Note Chan Owens MD - 05/13/2024 [facility] Medical [facility] Cardiology [address], [place] [address] [address] [facility] [address], [place] [address] P:[phone] P:[phone] Echocardiographic Report Patient Name: LULA TOLEDO : 1940 Study Date: 05/13/2024 1:58:54 PM Gender: F Tech: Location: [place] Ref Provider: CHAN OWENS Height(Cm): 150 BSA: 1.69 Weight(Kg): 68.9 Heart Rate: 94 BP: 136 / 60 Quality: Good Order Provider: CHAN OWENS PROCEDURES: Echocardiographic Report: Transthoracic echocardiogram with [...] FINDINGS: Interpretation Site: Exam was interpreted at [facility]. Left Ventricle: Normal left ventricular size. [...] the tricuspid regurgitation jet. Electronically Signed By: Chan Owens MD, [facility] 05/13/2024 3:00:56 PM WATER INSPECTOR us Chan Owens MD CV ECHO PROCEDURES Final Result [...] Insurance MEDICARE SOLUTIONS MEDICARE SOLUTIONS Care Teams Supervisor Contact Lens Relationship Specialty Start Date End Date Dain Rendon MD PCP - General 01/02/10
--- OUTSIDE RECORDS SUMMARY | 2024-06-05 14:19 | XMS_ITS | Data Portability ---
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 Plan of Treatment Reminders Order Date Submit Date Provider Last Modified By Organization Details Last Modified Time Details Appointments None recorded . Lab CBC w/ auto diff 025 06/04/19 25 [facility], [address], [place], [address], 5 05:15:32 lipid panel, serum 025 06/04/19 25 [facility], [address] [place], [address], 5 05:15:29 CMP, serum or plasma 025 06/04/19 25 [facility], [place], [address], 5 05:15:31 TSH, serum or plasma 025 06/04/19 25 [facility], [place], [address], 5 05:15:34 T4, free, serum 025 06/04/19 25 [facility], [address], [place], [address], 5 05:15:33 lipid panel, serum 025 04/23/19 25 [email or web address] [facility], [address], [place], [address], 5 17:38:18 CMP, serum or plasma 025 04/23/19 25 [facility], [address], [place], [address], 5 17:38:18 CBC w/ auto diff 025 04/23/19 25 [email or web address] [facility], [address], [place], [address], 5 17:38:18 HbA1c (hemoglo bin A1c), blood 025 04/23/19 25 [email or web address] [facility], [address], [place], [address], 5 17:38:18 lipid panel, serum 024 11/21/19 24 [email or web address] [facility], [address], [place], [address], 4 16:30:37 CMP, serum or plasma 024 11/21/19 24 [id number] [facility], [address], [place], [address], 4 16:30:37 HbA1c (hemoglo bin A1c), blood 024 11/21/19 24 [email or web address] [facility], [address], [place], [address], 4 16:30:37 HbA1c (hemoglo bin A1c), blood 024 07/26/19 24 [email or web address] [facility], [address], [place], [address], 4 14:06:29 microalb umin/cre atinine, mass ratio, urine 024 07/26/19 24 [email or web address] [facility], [address], [place], [address], 4 14:06:29 CBC w/ auto diff 024 07/26/19 24 [facility], [address], [place], [address], 4 14:06:28 CMP, serum or plasma 024 07/26/19 24 [email or web address] [facility], [address], [place], [address], 4 14:06:28 TSH, serum or plasma 024 07/26/19 24 [email or web address] [facility], [address], [place], [address], 4 14:06:28 T4, free, serum 024 07/26/19 24 [email or web address] [facility], [address], [place], [address], 4 14:06:29 lipid panel, serum 024 07/26/19 24 [email or web address] [facility], [address], [place], [address], 4 14:06:29 Referral None recorded . Procedures None recorded . Surgeries None recorded . Imaging None recorded . Medication Orders None recorded . Patient TargetsNo targets recorded. Patient Instructions Encounter Date Encounter Id Patient Instructions Last Modified By Organization Details Last Modified Time 03/29/2023 [id number] Follow-up chroni c obstructive lung disease -hypertension -hyperlipidemia - type 2 diabetes. All clinically stable. Was given a flu shot today. Had blood work performed back in January. Hemoglobin A1c was 6.9. Cholesterol 132 HDL 59 LDL 53. Did have a slight increase in the microalbumin of otherwise doing well. No need for rehab repeat blood work at this time. Will continue on current Rx follow-up in four months. Standard immunizations of RSV, COVID, influenza and shingles as recommended. Portions of the record may have been created with voice recognition software. Occasional wrong-word or s ound-a-like substitutions may have occurred due to the inherent limitations of voice recognition software. Read the chart carefully and recognize, using context, where substitutions have occurred. [email or web address] Not available 03/29/2023 16:14:25 07/26/2023 [id number] Follow-up hypertension, hyperlipidemia, type 2 diabetes, chronic obstructive lung disease and chronic lower back pain etiology which uncertain at this time will likely secondary to her degenerative joint disease. Will continue on current Rx. Not in need of a colonoscopy. Mammogram is refusing it at this age. Continue on current Rx check blood work consisting of CBC, CMP, lipid, thyroid and hemoglobin A1c level. Follow-up in four months Next Appointment: 4 Months Approximate Date: 11/23/2023 Portions of the record may have been created with voice recognition software. Occasional wrong-word or s ound-a-like substitutions may have occurred due to the inherent limitations of voice recognition software. Read the chart carefully and recognize, using context, where substitutions have occurred. [email or web address] Not available 07/26/2023 16:16:20 11/21/2023 [id number] dementia rating scale-2* [email or web address] Not available 11/21/2023 16:34:38 alcohol misuse* [email or web address] Not available 11/21/2023 16:34:38 depression screening* [email or web address] Not available 11/21/2023 16:34:38 Timed Up and Go test (TUG)* [email or web address] Not available 11/21/2023 16:34:38 multi-dimensiona l health assessment questionnaire* [email or web address] Not available 11/21/2023 16:34:38 Personalized Hea lth Plan and Screening Recommendations Advance Directives - Do you have one? Yes Advance Directives - Do we have your advance directive on file in your health record? No, please bring in a copy at your earliest convenience Primary Prevention/Interven tion (prevents or decreases the chance of common diseases from occurring) Smoking Risk: Non Smoker Alcohol Misuse Screening: Negative Weight: Appropriate Overwei ght continue your current weight loss efforts try to lose 5% of your body weight try to lose 10% of your body weight Physical activity: Need more exercise/physical activity Nutrition: Good Average Fall Risk (screened today): Low Intermediate Refer to attached handout Preventing Falls: After your Visit Recommend regular use of cane or walker Vaccines Pneumococcal: Ordered Recommended today Recommended today, but you have declined No further needed Influenza: Your next one in the fall of this year Chronic Disease Risks Stroke: Low Risk Intermediate Risk I have no recommendations Act yanna diagnosis, Continue current treatment plan Heart Attack: Low risk Intermediate Risk I have no recommendations Act yanna diagnosis, Continue current treatment plan Clogging of the Arteries: Low risk Intermediate Risk I have no recommendations Act yanna diagnosis, Continue current treatment plan Diabetes: Low Risk Intermediate Risk Active diagnosis, Continue current treatment plan Secondary Prevention/Interven tion (detects treatable diseases before they may cause symptoms, disability, or ) Breast Cancer Screening with mammogram: No screening necessary Cervical/Uterine/Ov maile Cancer Screening: No screening necessary Osteoporosis Screening: No screening necessary Date Screening Last Performed: Colon Cancer Screening: Colonoscopy Date Screening Last Performed: _2021 Eye Disease Screening: Ordered Recommended today Recommended today, but you have declined Dementia Risk: Low I have no recommendations Depression Screening: Negative Active diagnosis, Continue current treatment plan [email or web address] Not available 11/21/2023 16:17:45 Follow-up hypertension, hyperlipidemia, type 2 diabetes, obesity class one chronic obstructive lung disease All clinically stable. Will check a hemoglobin A1c and lipid and CMP panel. Need a bone density scan and mammogram performed. Will continue on current Rx follow-up in four months. Additional Orders - Directives - Recommendations 1. Mammogram 2. DEXA Scan 3. Write for prescription for a Tayla or other glucose monitoring device Next Appointment: 4 Months Approximate Date: 03/20/2024 Portions of the record may have been created with voice recognition software. Occasional wrong-word or s ound-a-like substitutions may have occurred due to the inherent limitations of voice recognition software. Read the chart carefully and recognize, using context, where substitutions have occurred. [email or web address] Not available 11/21/2023 16:34:25 04/23/2024 [id number] Follow-up chroni c obstructive lung disease, essential hypertension, hyperlipidemia type 2 diabetes clinically stable. Clinically doing well otherwise. No interval complaints of any new problems. Will check some blood work consisting of CBC, CMP and hemoglobin A1c. Continue on current Rx follow-up in four months. Follow Up: 4 Months Approximate Date: 08/21/2024 Portions of the record may have been created with voice recognition software. Occasional wrong-word or s ound-a-like substitutions may have occurred due to the inherent limitations of voice recognition software. Read the chart carefully and recognize, using context, where substitutions have occurred. Created: Maria Luisa Rendon M.D. 04.23.2024 02:35 PM [email or web address] Not available 04/23/2024 15:35:27 06/04/2024 [id number] complete blood count (CBC): about this test [email or web address] Not available 06/04/2024 15:45:30 Reason for Referral None Reported. Results Created Date Observation Date Name Description Value Unit Range Abnormal Flag Note LastModifiedBy Organization Detail LastModifiedTime 08/30/19 24 08/31/2023 LIPID PANEL , STAND ERICA cholesterol, total 120 mg/dL <200 normal Not Available [employer] [place] [address] [address] [place], [address], 09/01/2023 04:37:35 08/30/19 24 08/31/2023 LIPID PANEL , STAND ERICA HDL cholesterol 62 mg/dL > or = 50 normal Not Available [facility] [address] [place], [address], 09/01/2023 04:37:35 08/30/19 24 08/31/2023 LIPID PANEL , STAND ERICA triglyceride s 124 mg/dL <150 normal Not Available [facility] [address] [place], [address], 09/01/2023 04:37:35 08/30/19 24 08/31/2023 LIPID PANEL , STAND ERICA LDL-choleste rol 37 mg/dL _(fernie c) normal Refer ence range : <100 Mary able range <100 mg/dL for prima ry preve ntion ; <70 mg/dL for patie nts with CHD or diabe tic patie nts with > or = 2 CHD risk facto rs. LDL-C is now calcu lated using the Dee Dee n-Hop kins calcu chilangogarfield n, which is a valid ated novel metho d provi klaudia socorro r accur acy than the Fried olga equat ion in the estim ation of LDL-C . Dee Dee bush SS et al. ELENA. 2013; 310(1 9): 2061- 2068 (http ://ed ucati on.[employer]. com/f aq/FA Q164) Not Available [facility] [address] [address] [place], [address], 09/01/2023 04:37:35 08/30/19 24 08/31/2023 LIPID PANEL , STAND ERICA chol/HDLC ratio 1.9 (calc ) <5.0 normal Not Available [facility] [employer] [address] [address] [place], [address], 09/01/2023 04:37:35 08/30/19 24 08/31/2023 LIPID PANEL , STAND ERICA non HDL cholesterol 58 mg/dL _(fernie c) <130 normal For patie nts with diabe demetrius plus 1 major ASCVD risk facto r, treat ing to a non-H DL-C goal of <100 mg/dL (LDL- C of <70 mg/dL ) is real godinez optio n. Not Available [employer] [place] [address] [address] [place], [address], 09/01/2023 04:37:35 08/30/19 24 08/31/2023 ALBUM IN, RANDO M URINE W/CRE ATINI NE creatinine, random urine 176 mg/dL 20-275 normal Not Available [facility] [address] [place], [address], 09/01/2023 04:37:37 08/30/19 24 08/31/2023 ALBUM IN, RANDO M URINE W/CRE ATINI NE albumin, urine 6.3 mg/dL see note: normal Refer ence Range : Refer ence Range Not estab lishe d Not Available [address], [address], 09/01/2023 04:37:37 08/30/19 24 08/31/2023 ALBUM IN, RANDO M URINE W/CRE ATINI NE albumin/crea tinine ratio, random urine 36 mg/g_ creat <30 high The ADA defin es abnor malit ies in album in excre tion as follo ws: Album inuri a Categ ory Resul t (mg/g creat inine ) Veronica l to Mildl y incre ased <30 Moder ately incre ased 30-29 9 Sever beatrice incre ased > OR = 300 The ADA recom mends that at least two of three speci mens colle cted withi n a 3-6 month perio d be abnor mal befor e consi amarilis g a patie nt to be withi n a diagn ostic categ ory. Not Available [address], [address], 09/01/2023 04:37:37 08/30/19 24 08/31/2023 COMPR EHENS YANNA METAB OLIC PANEL glucose 160 mg/dL 65-99 high Fasti ng refer ence inter dk For someo ne witho ut known diabe demetrius, a gluco se value >125 mg/dL indic ates that they may have diabe demetrius and this shoul d be confi rmed with a follo w-up test. Not Available [employer] [address], [address], 09/01/2023 04:37:38 08/30/19 24 08/31/2023 COMPR EHENS YANNA METAB OLIC PANEL urea nitrogen (BUN) 14 mg/dL 7-25 normal Not Available [employer] [address], [address], 09/01/2023 04:37:38 08/30/19 24 08/31/2023 COMPR EHENS YANNA METAB OLIC PANEL creatinine 0.89 mg/dL 0.60-0 .95 normal Not Available [address], [address], 09/01/2023 04:37:38 08/30/19 24 08/31/2023 COMPR EHENS YANNA METAB OLIC PANEL eGFR 65 mL/mi n/1.7 3m2 > or = 60 normal Not Available [address], [address], 09/01/2023 04:37:38 08/30/19 24 08/31/2023 COMPR EHENS YANNA METAB OLIC PANEL BUN/creatini ne ratio SEE NOTE: (calc ) 6-22 Not Repor lynne: BUN and Creat inine are withi n refer ence range . Not Available [address], [address], 09/01/2023 04:37:38 08/30/19 24 08/31/2023 COMPR EHENS YANNA METAB OLIC PANEL sodium 137 mmol/ L 135-14 6 normal Not Available [address], [address], 09/01/2023 04:37:38 08/30/19 24 08/31/2023 COMPR EHENS YANNA METAB OLIC PANEL potassium 3.9 mmol/ L 3.5-5. 3 normal Not Available [address], [address], 09/01/2023 04:37:38 08/30/19 24 08/31/2023 COMPR EHENS YANNA METAB OLIC PANEL chloride 101 mmol/ L 98-110 normal Not Available [address], [address], 09/01/2023 04:37:38 08/30/19 24 08/31/2023 COMPR EHENS YANNA METAB OLIC PANEL carbon dioxide 26 mmol/ L 20-32 normal Not Available [address], [address], 09/01/2023 04:37:38 08/30/19 24 08/31/2023 COMPR EHENS YANNA METAB OLIC PANEL calcium 10.4 mg/dL 8.6-10 .4 normal Not Available [address], [address], 09/01/2023 04:37:38 08/30/19 24 08/31/2023 COMPR EHENS YANNA METAB OLIC PANEL protein, total 7.5 g/dL 6.1-8. 1 normal Not Available [address], [address], 09/01/2023 04:37:38 08/30/19 24 08/31/2023 COMPR EHENS YANNA METAB OLIC PANEL albumin 4.7 g/dL 3.6-5. 1 normal Not Available [address], [address], 09/01/2023 04:37:38 08/30/19 24 08/31/2023 COMPR EHENS YANNA METAB OLIC PANEL globulin 2.8 g/dL_ (calc ) 1.9-3. 7 normal Not Available [address], [address], 09/01/2023 04:37:38 08/30/19 24 08/31/2023 COMPR EHENS YANNA METAB OLIC PANEL albumin/glob ulin ratio 1.7 (calc ) 1.0-2. 5 normal Not Available [address], [address], 09/01/2023 04:37:38 08/30/19 24 08/31/2023 COMPR EHENS YANNA METAB OLIC PANEL bilirubin, total 0.7 mg/dL 0.2-1. 2 normal Not Available [address], [address], 09/01/2023 04:37:38 08/30/19 24 08/31/2023 COMPR EHENS YANNA METAB OLIC PANEL alkaline phosphatase 90 U/L 37-153 normal Not Available [facility] [employer] [address], [address], 09/01/2023 04:37:38 08/30/19 24 08/31/2023 COMPR EHENS YANNA METAB OLIC PANEL AST 15 U/L 10-35 normal Not Available [address], [address], 09/01/2023 04:37:38 08/30/19 24 08/31/2023 COMPR EHENS YANNA METAB OLIC PANEL ALT 11 U/L 6-29 normal Not Available [address], [address], 09/01/2023 04:37:38 08/30/19 24 08/31/2023 CBC (INCL UDES DIFF/ PLT) white blood cell count 8.2 thous and/u L 3.8-10 .8 normal Not Available [address], [address], 09/01/2023 04:37:39 08/30/19 24 08/31/2023 CBC (INCL UDES DIFF/ PLT) red blood cell count 4.28 erasmo on/uL 3.80-5 .10 normal Not Available [facility] [address], [address], 09/01/2023 04:37:39 08/30/19 24 08/31/2023 CBC (INCL UDES DIFF/ PLT) hemoglobin 9.6 g/dL 11.7-1 5.5 low Not Available [employer] [address], [address], 09/01/2023 04:37:39 08/30/19 24 08/31/2023 CBC (INCL UDES DIFF/ PLT) hematocrit 34.3 % 35.0-4 5.0 low Not Available [facility] [address], [address], 09/01/2023 04:37:39 08/30/1908/31/2023 CBC (INCL UDES DIFF/ PLT) MCV 80.1 fL 80.0-1 00.0 normal Not Available [facility] [address], [address], 09/01/2023 04:37:39 08/30/19 24 08/31/2023 CBC (INCL UDES DIFF/ PLT) MCH 22.4 pg 27.0-3 3.0 low Not Available [employer] [address], [address], 09/01/2023 04:37:39 08/30/19 24 08/31/2023 CBC (INCL UDES DIFF/ PLT) MCHC 28.0 g/dL 32.0-3 6.0 low Not Available [address], [address], 09/01/2023 04:37:39 08/30/1908/31/2023 CBC (INCL UDES DIFF/ PLT) RDW 17.4 % 11.0-1 5.0 high Not Available [facility] [address], [address], 09/01/2023 04:37:39 08/30/19 24 08/31/2023 CBC (INCL UDES DIFF/ PLT) platelet count 197 thous and/u L 140-40 0 normal Not Available [address], [address], 09/01/2023 04:37:39 08/30/19 24 08/31/2023 CBC (INCL UDES DIFF/ PLT) MPV 12.4 fL 7.5-12 .5 normal Not Available [address], [address], 09/01/2023 04:37:39 08/30/19 24 08/31/2023 CBC (INCL UDES DIFF/ PLT) absolute neutrophils 6002 cells /uL 1500-7 800 normal Not Available [address], [address], 09/01/2023 04:37:39 08/30/19 24 08/31/2023 CBC (INCL UDES DIFF/ PLT) absolute lymphocytes 1460 cells /uL 850-39 00 normal Not Available [address], [address], 09/01/2023 04:37:39 08/30/19 24 08/31/2023 CBC (INCL UDES DIFF/ PLT) absolute monocytes 607 cells /uL 200-95 0 normal Not Available [address], [address], 09/01/2023 04:37:39 08/30/19 24 08/31/2023 CBC (INCL UDES DIFF/ PLT) absolute eosinophils 74 cells /uL 15-500 normal Not Available [address], [address], 09/01/2023 04:37:39 08/30/19 24 08/31/2023 CBC (INCL UDES DIFF/ PLT) absolute basophils 57 cells /uL 0-200 normal Not Available [facility] [address], [address], 09/01/2023 04:37:39 08/30/19 24 08/31/2023 CBC (INCL UDES DIFF/ PLT) neutrophils 73.2 % normal Not Available [address], [address], 09/01/2023 04:37:39 08/30/19 24 08/31/2023 CBC (INCL UDES DIFF/ PLT) lymphocytes 17.8 % normal Not Available [address], [address], 09/01/2023 04:37:39 08/30/19 24 08/31/2023 CBC (INCL UDES DIFF/ PLT) monocytes 7.4 % normal Not Available [facility] [address], [address], 09/01/2023 04:37:39 08/30/19 24 08/31/2023 CBC (INCL UDES DIFF/ PLT) eosinophils 0.9 % normal Not Available [facility] [address], [address], 09/01/2023 04:37:39 08/30/19 24 08/31/2023 CBC (INCL UDES DIFF/ PLT) basophils 0.7 % normal Not Available [address], [address], 09/01/2023 04:37:39 08/30/19 24 08/31/2023 T4, FREE T4, free 0.9 NG/dL 0.8-1. 8 normal Not Available [address], [address], 09/01/2023 04:37:40 08/30/19 24 08/31/2023 TSH TSH 1.41 mIU/L 0.40-4 .50 normal Not Available [address], [address], 09/01/2023 04:37:41 08/30/1908/31/2023 HEMOG LOBIN A1C hemoglobin A1C 8.0 %_of_ total _HGB <5.7 high For someo ne witho ut known diabe demetrius, a hemog lobin A1c value of 6.5% or great er indic ates that they may have diabe demetrius and this shoul d be confi rmed with a follo w-up test. For someo ne with known diabe demetrius, a value <7% indic ates that their diabe demetrius is well contr olled and a value great er than or equal to 7% indic ates subop timal contr ol. A1c targe ts shoul d be indiv idual ized based on durat ion of diabe demetrius, age, comor bid condi tions , and other consi derat ions. Curre ntly, no conse nsus exist s maria elena rudolph use of hemog lobin A1c for diagn osis of diabe demetrius for child margarita. This test was perfo rmed on the Mikel amy c503 platf orm. Effec tive , a rodriguez e in test platf orms from the [facility] t[facility] to the Mikel amy c503 may have shift ed HbA1c resul ts marcellus red to histo rical resul ts. Based on labor atory valid ation testi ng condu cted at [facility] , the Mikel platf orm relat yanna to the [facility] platf orm had an avera ge incre ase in HbA1c value of < or = 0.3%. This diffe rence is withi n accep lynne varia bilit y estab lishe d by the [place] [facility] [employer] hemog lobin Stand ardiz ation Progr am. Note that not all indiv idual s will have had a shift in their resul ts and direc t marcellus rison s betwe en histo rical and curre nt resul ts for testi ng condu cted on diffe rent platf orms is not recom ryan d. Not Available [facility] [address] [place], [address], 09/01/2023 04:37:42 01/16/2001/17/2024 LIPID PANEL , STAND ERICA cholesterol, total 137 mg/dL <200 normal Not Available [facility] [address] [place], [address], 01/17/2024 03:11:49 01/16/2001/17/2024 LIPID PANEL , STAND ERICA HDL cholesterol 57 mg/dL > or = 50 normal Not Available [address] [address] [place], [address], 01/17/2024 03:11:49 01/16/2001/17/2024 LIPID PANEL , STAND ERICA triglyceride s 115 mg/dL <150 normal Not Available [employer] [address] [address] [place], [address], 01/17/2024 03:11:49 01/16/2001/17/2024 LIPID PANEL , STAND ERICA LDL-choleste rol 60 mg/dL _(fernie c) normal Refer ence range : <100 Mary able range <100 mg/dL for prima ry preve ntion ; <70 mg/dL for patie nts with CHD or diabe tic patie nts with > or = 2 CHD risk facto rs. LDL-C is now calcu lated using the Dee Dee bush-Hop joshua boyd n, which is a valid ated novel haroono d jostin rudolph socorro r accur acy than the Fried olga equat ion in the estim ation of LDL-C . Dee Dee bush SS et al. ELENA. 2013; 310(1 9): 2061- 2068 (http ://ed ucati on.Meaghan [employer]gu[employer]. com/f aq/FA Q164) Not Available [employer] [facility] [address] [place], [address], 01/17/2024 03:11:49 01/16/20 24 01/17/2024 LIPID PANEL , STAND ERICA chol/HDLC ratio 2.4 (calc ) <5.0 normal Not Available [employer] [address] [address] [place], [address], 01/17/2024 03:11:49 01/16/2001/17/2024 LIPID PANEL , STAND ERICA non HDL cholesterol 80 mg/dL _(fernie c) <130 normal For patie nts with diabe demetrius plus 1 major ASCVD risk facto r, treat ing to a non-H DL-C goal of <100 mg/dL (LDL- C of <70 mg/dL ) is consi dered a thera peuti c optio n. Not Available [address], [address], 01/17/2024 03:11:49 01/16/20 24 01/17/2024 COMPR EHENS YANNA METAB OLIC PANEL , PLASM A glucose 172 mg/dL 65-99 high Fasti ng refer ence inter dk For someo ne witho ut known diabe demetrius, a gluco se value >125 mg/dL indic ates that they may have diabe demetrius and this shoul d be confi rmed with a follo w-up test. Not Available [address], [address], 01/17/2024 03:11:50 01/16/20 24 01/17/2024 COMPR EHENS YANNA METAB OLIC PANEL , PLASM A urea nitrogen (BUN) 13 mg/dL 7-25 normal Not Available [address], [address], 01/17/2024 03:11:50 01/16/20 24 01/17/2024 COMPR EHENS YANNA METAB OLIC PANEL , PLASM A creatinine 0.79 mg/dL 0.60-0 .95 normal Not Available [address], [address], 01/17/2024 03:11:50 01/16/20 24 01/17/2024 COMPR EHENS YANNA METAB OLIC PANEL , PLASM A eGFR 75 mL/mi n/1.7 3m2 > or = 60 normal Not Available [address], [address], 01/17/2024 03:11:50 01/16/20 24 01/17/2024 COMPR EHENS YANNA METAB OLIC PANEL , PLASM A BUN/creatini ne ratio SEE NOTE: (calc ) 6-22 Not Repor lynne: BUN and Creat inine are withi n refer ence range . Not Available [address] [address] [place], [address], 01/17/2024 03:11:50 01/16/20 24 01/17/2024 COMPR EHENS YANNA METAB OLIC PANEL , PLASM A sodium 136 mmol/ L 135-14 6 normal Not Available [address], [address], 01/17/2024 03:11:50 01/16/20 24 01/17/2024 COMPR EHENS YANNA METAB OLIC PANEL , PLASM A potassium 3.8 mmol/ L 3.4-4. 8 normal Not Available [address], [address], 01/17/2024 03:11:50 01/16/20 24 01/17/2024 COMPR EHENS YANNA METAB OLIC PANEL , PLASM A chloride 101 mmol/ L 98-110 normal Not Available [address], [address], 01/17/2024 03:11:50 01/16/20 24 01/17/2024 COMPR EHENS YANNA METAB OLIC PANEL , PLASM A carbon dioxide 25 mmol/ L 20-32 normal Not Available [address], [address], 01/17/2024 03:11:50 01/16/20 24 01/17/2024 COMPR EHENS YANNA METAB OLIC PANEL , PLASM A calcium 9.8 mg/dL 8.6-10 .4 normal Not Available [facility] [address], [address], 01/17/2024 03:11:50 01/16/20 24 01/17/2024 COMPR EHENS YANNA METAB OLIC PANEL , PLASM A protein, total 7.1 g/dL 6.4-8. 4 normal Not Available [facility] [address], [address], 01/17/2024 03:11:50 01/16/20 24 01/17/2024 COMPR EHENS YANNA METAB OLIC PANEL , PLASM A albumin 4.3 g/dL 3.6-5. 1 normal Not Available [address], [address], 01/17/2024 03:11:50 01/16/20 24 01/17/2024 COMPR EHENS YANNA METAB OLIC PANEL , PLASM A globulin 2.8 g/dL_ (calc ) 2.2-4. 0 normal Not Available [address], [address], 01/17/2024 03:11:50 01/16/20 24 01/17/2024 COMPR EHENS YANNA METAB OLIC PANEL , PLASM A albumin/glob ulin ratio 1.5 (calc ) 0.9-2. 3 normal Not Available [address], [address], 01/17/2024 03:11:50 01/16/20 24 01/17/2024 COMPR EHENS YANNA METAB OLIC PANEL , PLASM A bilirubin, total 0.5 mg/dL 0.2-1. 2 normal Not Available [address], [address], 01/17/2024 03:11:50 01/16/20 24 01/17/2024 COMPR EHENS YANNA METAB OLIC PANEL , PLASM A alkaline phosphatase 75 U/L 37-153 normal Not Available [address], [address], 01/17/2024 03:11:50 01/16/20 24 01/17/2024 COMPR EHENS YANNA METAB OLIC PANEL , PLASM A AST 12 U/L 10-35 normal Not Available [address], [address], 01/17/2024 03:11:50 01/16/20 24 01/17/2024 COMPR EHENS YANNA METAB OLIC PANEL , PLASM A ALT 9 U/L 6-29 normal Not Available [address], [address], 01/17/2024 03:11:50 01/16/20 24 01/17/2024 HEMOG LOBIN A1C hemoglobin A1C 7.4 %_of_ total _HGB <5.7 high For someo ne witho ut known diabe demetrius, a hemog lobin A1c value of 6.5% or great er indic ates that they may have diabe demetrius and this shoul d be confi rmed with a follo w-up test. For someo ne with known diabe demetrius, a value <7% indic ates that their diabe demetrius is well contr olled and a value great er than or equal to 7% indic ates subop timal contr ol. A1c targe ts shoul d be indiv idual ized based on durat ion of diabe demetrius, age, comor bid condi tions , and other consi derat ions. Curre ntly, no conse nsus exist s maria elena rudolph use of hemog lobin A1c for diagn osis of diabe demetrius for child margarita. Not Available [address], [address], 01/17/2024 03:11:51 06/04/19 25 06/05/2024 LIPID PANEL , STAND ERICA cholesterol, total 113 mg/dL <200 normal Not Available [facility] [address] [place], [address], 06/05/2024 05:15:29 06/04/19 25 06/05/2024 LIPID PANEL , STAND ERICA HDL cholesterol 50 mg/dL > or = 50 normal Not Available [address] [place], [address], 06/05/2024 05:15:29 06/04/19 25 06/05/2024 LIPID PANEL , STAND ERICA triglyceride s 102 mg/dL <150 normal Not Available [facility] [address] [place], [address], 06/05/2024 05:15:29 06/04/19 25 06/05/2024 LIPID PANEL , STAND ERICA LDL-choleste rol 44 mg/dL _(fernie c) normal Refer ence range : <100 Mary able range <100 mg/dL for prima ry preve ntion ; <70 mg/dL for patie nts with CHD or diabe tic patie nts with > or = 2 CHD risk facto rs. LDL-C is now calcu lated using the Dee Dee n-Hop kins calcu oliver n, which is a valid ated novel stevie hinton than the Fried olga equat ion in the estim ation of LDL-C . Dee Dee bush SS et al. ELENA. 2013; 310(1 9): 2061- 2068 (http ://ed ucati on.[employer] audraZ Plane. com/f aq/FA Q164) Not Available [facility] [address] [address], [place], [address], 06/05/2024 05:15:29 06/04/1906/05/2024 LIPID PANEL , STAND ERICA chol/HDLC ratio 2.3 (calc ) <5.0 normal Not Available [facility] [address] [place], [address], 06/05/2024 05:15:29 06/04/19 25 06/05/2024 LIPID PANEL , STAND ERICA non HDL cholesterol 63 mg/dL _(fernie c) <130 normal For patie nts with diabe demetrius plus 1 major ASCVD risk facto r, treat ing to a non-H DL-C goal of <100 mg/dL (LDL- C of <70 mg/dL ) is consi omidd a therche pechina c optio n. Not Available [facility] [address] [place], [address], 06/05/2024 05:15:29 06/04/19 25 06/05/2024 COMPR EHENS YANNA METAB OLIC PANEL , PLASM A glucose 165 mg/dL 65-139 high Non-f astin g refer ence inter dk Not Available [address], [address], 06/05/2024 05:15:31 06/04/19 25 06/05/2024 COMPR EHENS YANNA METAB OLIC PANEL , PLASM A urea nitrogen (BUN) 14 mg/dL 7-25 normal Not Available [address], [address], 06/05/2024 05:15:31 06/04/1906/05/2024 COMPR EHENS YANNA METAB OLIC PANEL , PLASM A creatinine 0.67 mg/dL 0.60-0 .95 normal Not Available [address], [address], 06/05/2024 05:15:31 06/04/1906/05/2024 COMPR EHENS YANNA METAB OLIC PANEL , PLASM A eGFR 87 mL/mi n/1.7 3m2 > or = 60 normal Not Available [address], [address], 06/05/2024 05:15:31 06/04/19 25 06/05/2024 COMPR EHENS YANNA METAB OLIC PANEL , PLASM A BUN/creatini ne ratio SEE NOTE: (calc ) 6-22 Not Repor lynne: BUN and Creat inine are withi n refer ence range . Not Available [address], [address], 06/05/2024 05:15:31 06/04/19 25 06/05/2024 COMPR EHENS YANNA METAB OLIC PANEL , PLASM A sodium 138 mmol/ L 135-14 6 normal Not Available [address], [address], 06/05/2024 05:15:31 06/04/19 25 06/05/2024 COMPR EHENS YANNA METAB OLIC PANEL , PLASM A potassium 3.9 mmol/ L 3.4-4. 8 normal Not Available [address], [address], 06/05/2024 05:15:31 06/04/19 25 06/05/2024 COMPR EHENS YANNA METAB OLIC PANEL , PLASM A chloride 104 mmol/ L 98-110 normal Not Available [address], [address], 06/05/2024 05:15:31 06/04/19 25 06/05/2024 COMPR EHENS YANNA METAB OLIC PANEL , PLASM A carbon dioxide 27 mmol/ L 20-32 normal Not Available [address], [address], 06/05/2024 05:15:31 06/04/19 25 06/05/2024 COMPR EHENS YANNA METAB OLIC PANEL , PLASM A calcium 9.8 mg/dL 8.6-10 .4 normal Not Available [address], [address], 06/05/2024 05:15:31 06/04/19 25 06/05/2024 COMPR EHENS YANNA METAB OLIC PANEL , PLASM A protein, total 6.5 g/dL 6.4-8. 4 normal Not Available [address], [address], 06/05/2024 05:15:31 06/04/19 25 06/05/2024 COMPR EHENS YANNA METAB OLIC PANEL , PLASM A albumin 4.1 g/dL 3.6-5. 1 normal Not Available [address], [address], 06/05/2024 05:15:31 06/04/19 25 06/05/2024 COMPR EHENS YANNA METAB OLIC PANEL , PLASM A globulin 2.4 g/dL_ (calc ) 2.2-4. 0 normal Not Available [address], [address], 06/05/2024 05:15:31 06/04/19 25 06/05/2024 COMPR EHENS YANNA METAB OLIC PANEL , PLASM A albumin/glob ulin ratio 1.7 (calc ) 0.9-2. 3 normal Not Available [address], [address], 06/05/2024 05:15:31 06/04/19 25 06/05/2024 COMPR EHENS YANNA METAB OLIC PANEL , PLASM A bilirubin, total 0.3 mg/dL 0.2-1. 2 normal Not Available [address], [address], 06/05/2024 05:15:31 06/04/19 25 06/05/2024 COMPR EHENS YANNA METAB OLIC PANEL , PLASM A alkaline phosphatase 75 U/L 37-153 normal Not Available [address], [address], 06/05/2024 05:15:31 06/04/19 25 06/05/2024 COMPR EHENS YANNA METAB OLIC PANEL , PLASM A AST 18 U/L 10-35 normal Not Available [address], [address], 06/05/2024 05:15:31 06/04/19 25 06/05/2024 COMPR EHENS YANNA METAB OLIC PANEL , PLASM A ALT 17 U/L 6-29 normal Not Available [address], [address], 06/05/2024 05:15:31 06/04/19 25 06/05/2024 CBC (INCL UDES DIFF/ PLT) white blood cell count 5.3 thous and/u L 3.8-10 .8 normal Not Available [address], [address], 06/05/2024 05:15:32 06/04/1906/05/2024 CBC (INCL UDES DIFF/ PLT) red blood cell count 3.39 erasmo on/uL 3.80-5 .10 low Not Available [facility] [address], [address], 06/05/2024 05:15:32 06/04/1906/05/2024 CBC (INCL UDES DIFF/ PLT) hemoglobin 7.6 g/dL 11.7-1 5.5 low Not Available [facility] [address], [address], 06/05/2024 05:15:32 06/04/1906/05/2024 CBC (INCL UDES DIFF/ PLT) hematocrit 26.7 % 35.0-4 5.0 low Not Available [address], [address], 06/05/2024 05:15:32 06/04/1906/05/2024 CBC (INCL UDES DIFF/ PLT) MCV 78.8 fL 80.0-1 00.0 low Not Available [address], [address], 06/05/2024 05:15:32 06/04/1906/05/2024 CBC (INCL UDES DIFF/ PLT) MCH 22.4 pg 27.0-3 3.0 low Not Available [facility] [address], [address], 06/05/2024 05:15:32 06/04/1906/05/2024 CBC (INCL UDES DIFF/ PLT) MCHC 28.5 g/dL 32.0-3 6.0 low For adult s, a sligh t decre ase in the calcu lated MCHC value (in the range of 30 to 32 g/dL) is most likel y not clini ziggy signi nhi t; tony er, it shoul d be inter prete d with cauti on in corre [facility] n with other red cell joy eters and the patie nt's clini fernie condi tion. Not Available [facility] [address] [address] [place], [address], 06/05/2024 05:15:32 06/04/1906/05/2024 CBC (INCL UDES DIFF/ PLT) RDW 19.8 % 11.0-1 5.0 high Not Available [facility] [address], [address], 06/05/2024 05:15:32 06/04/1906/05/2024 CBC (INCL UDES DIFF/ PLT) platelet count 148 thous and/u L 140-40 0 normal Not Available [facility] [address], [address], 06/05/2024 05:15:32 06/04/1906/05/2024 CBC (INCL UDES DIFF/ PLT) MPV fL 7.5-12 .5 Due to plate let or RBC varia bilit y in size or shape the resul t canno t be repor lynne accur ately . Not Available [facility] [address], [address], 06/05/2024 05:15:32 06/04/1906/05/2024 CBC (INCL UDES DIFF/ PLT) absolute neutrophils 3615 cells /uL 1500-7 800 normal Not Available [facility] [address], [address], 06/05/2024 05:15:32 06/04/1906/05/2024 CBC (INCL UDES DIFF/ PLT) absolute lymphocytes 912 cells /uL 850-39 00 normal Not Available [facility] [address] [place], [address], 06/05/2024 05:15:32 06/04/19 25 06/05/2024 CBC (INCL UDES DIFF/ PLT) absolute monocytes 684 cells /uL 200-95 0 normal Not Available [address], [address], 06/05/2024 05:15:32 06/04/19 25 06/05/2024 CBC (INCL UDES DIFF/ PLT) absolute eosinophils 58 cells /uL 15-500 normal Not Available [facility] [address], [address], 06/05/2024 05:15:32 06/04/19 25 06/05/2024 CBC (INCL UDES DIFF/ PLT) absolute basophils 32 cells /uL 0-200 normal Not Available [facility] [address], [address], 06/05/2024 05:15:32 06/04/19 25 06/05/2024 CBC (INCL UDES DIFF/ PLT) neutrophils 68.2 % normal Not Available [facility] [address], [address], 06/05/2024 05:15:32 06/04/19 25 06/05/2024 CBC (INCL UDES DIFF/ PLT) lymphocytes 17.2 % normal Not Available [facility] [address], [address], 06/05/2024 05:15:32 06/04/1906/05/2024 CBC (INCL UDES DIFF/ PLT) monocytes 12.9 % normal Not Available [facility] [address], [address], 06/05/2024 05:15:32 06/04/19 25 06/05/2024 CBC (INCL UDES DIFF/ PLT) eosinophils 1.1 % normal Not Available [facility] [address], [address], 06/05/2024 05:15:32 06/04/19 25 06/05/2024 CBC (INCL UDES DIFF/ PLT) basophils 0.6 % normal Not Available [address], [address], 06/05/2024 05:15:32 06/04/19 25 06/05/2024 CBC (INCL UDES DIFF/ PLT) comment(s) Revie w of perip heral smear confi burt autom ated resul ts. Revie w of the perip heral smear revea ls adequ ate numbe rs of plate lets. Not Available [address] [address] [place], [address], 06/05/2024 05:15:32 06/04/19 25 06/05/2024 T4, FREE T4, free 0.9 NG/dL 0.8-1. 8 normal Not Available [address] [place], [address], 06/05/2024 05:15:33 06/04/19 25 06/05/2024 TSH TSH 2.36 mIU/L 0.40-4 .50 normal Not Available [address], [address], 06/05/2024 05:15:34 06/04/19 25 06/05/2024 HEMOG LOBIN A1C hemoglobin A1C 6.7 %_of_ total _HGB <5.7 high For someo ne witho ut known diabe demetrius, a hemog lobin A1c value of 6.5% or great er indic ates that they may have diabe demetrius and this shoul d be confi rmed with a follo w-up test. For someo ne with known diabe demetrius, a value <7% indic ates that their diabe demetrius is well contr olled and a value great er than or equal to 7% indic ates subop timal contr ol. A1c targe ts shoul d be indiv idual ized based on durat ion of diabe demetrius, age, comor bid condi tions , and other consi derat ions. Curre ntly, no conse nsus exist s regar ding use of hemog lobin A1c for diagn osis of diabe demetrius for child margarita. Not Available [facility] [address] [address], [place], [address], 06/05/2024 05:15:35 04/27/19 25 04/27/2024 MAMMO , scree diane, digit al, bilat eral No observ ation record ed. [address], [place], [address], 04/27/2024 17:43:35 04/29/19 25 04/27/2024 bone densi ty No observ ation record ed. [place] [id number] [facility] [address], [place], [address], 04/29/2024 09:54:44 Result Notes None recorded. Problems Name Problem SNOMED Code Status Onset Date Resolution Date Notes Provider Name and Address Organization Details Recorded Time Renewal of prescripti on Active 2021 Not Available [facility] 3 12:45:37 Chronic obstructiv e pulmonary disease 28365604 Active 2020 Not Available [facility] 3 12:45:37 Senile osteoporos is 54381261 Active 2021 Not Available [facility] 3 12:45:37 Pure hyperchole sterolemia 578376283 Active 2020 Not Available [facility] 3 12:45:37 Low back pain 463122012 Active 2021 Not Available [facility] 3 12:45:37 Recurrent dislocatio n of shoulder region 57309956 Active Not Available [facility] 3 12:45:37 Enthesopat hy of hip region 23632986 Active Not Available [facility] 3 12:45:37 Type 2 diabetes mellitus without complicati on 020198001 Active 2020 Not Available [facility] 3 12:45:37 Vitamin D deficiency 56976185 Active 2021 Not Available [facility] 3 12:45:38 Disorder of rotator cuff 410058791 Active Not Available [facility] 3 12:45:38 History of polyp of colon 881307484 Active 2020 Not Available [facility] 3 12:45:38 Disorder of bursa of shoulder region 95749637 Active Not Available [facility] 3 12:45:38 Essential hypertensi on 36811457 Active 2020 Not Available [facility] 3 12:45:38 Pulmonary hypertensi on 81182198 Active 2021 Not Available [facility] 3 12:45:38 Chronic back pain 105104919 Active 2022 SHELLEY Ruggiero, [facility] 3 14:39:22 Obese class I 9410120759248 07 Active 2022 Maria Luisa Rendon MD [address], [address], [place], [address] , [facility] 3 15:47:21 Depressive disorder 86502885 Active 2023 SHELLEY Ruggiero, [facility], [facility] 4 17:35:48 Trigger finger of right hand 6020779860266 9101 Active 2024 Fariba lopez, [facility], [facility] 5 15:49:08 Abdominal pain 33039413 Active 2024 Maria Luisa Rendon MD [address], [address], [place], [address] , [facility] 5 15:37:51 Type 2 diabetes mellitus 12874666 Active 2024 Fariba lopez, [facility] 5 15:48:29 Problem Notes None recorded. Procedures Surgical History Date Name Laterality Status Provider Name and Address Organization Details Recorded Time 11/21/19 Medicare Wellness CPT Code, subsequent completed Candelaria Pino RN [facility] 11/21/2023 16:10:12 09/30/19 22 Most Recent Bone Density completed Not Available [facility] 06/06/2022 12:45:05 04/12/19 Date of Last Colonoscopy completed Not Available [facility] 06/06/2022 12:45:05 Imaging Results Imaging Date Name Status LastModified by Organiz ation Details LastModified Time 04/27/2024 MAMMO, screening, digital, bilateral completed [address], [address], 04/27/2024 17:43:35 04/27/2024 bone density completed [address], [address], 04/29/2024 09:54:44 Procedure Notes None recorded. Medical Equipment None Reported. Allergies Allergen ID Allergen Name Allergen Category Reaction Reaction Severity Criticality Documentation Date Start Date Code Code System Note Provider Name and Address Organization Details Recorded Time 19569 Iodinated contrast media (substanc e) medicatio n Not available Not available Not available 06/06/2022 00896 2004 SNOMED Not Available [facility] 12:47:59 Medications Name Sig Start Date Stop Date Status Note LastModified by Organization Details LastModified Time relion pen needles 32g x 4mm 32g x 4 mm misc active Not Available Not Available Not Available atorvastat in 40 mg tablet TAKE 1 TABLET BY MOUTH ONCE DAILY active Not Available Not Available No t Available metformin 500 mg tablet TAKE 1 TABLET BY MOUTH TWICE DAILY active Not Available Not Available No t Available atorvastat in 20 mg tablet TAKE 1 TABLET BY MOUTH ONCE DAILY 07/04 completed Not Available Not Available Not Available azithromyc in 250 mg tablet TAKE 2 TABLETS BY MOUTH ON DAY 1, AND THEN TAKE 1 TABLET BY MOUTH ONCE A DAY ON DAY 2 THROUGH DAY 5 07/04 completed Not Available Not Available Not Available pravastati n 40 mg tablet Take 1 tablet every day by oral route. 10/28 completed Not Available Not Available Not Available alendronat e 70 mg tablet Take 1 tablet every week by oral route. 04/18 completed Not Available Not Available Not Available Lantus U-100 Insulin 100 unit/mL subcutaneo us solution 10/28 completed Not Available Not Available Not Available theophylli ne ER 300 mg tablet,ext ended release,12 hr TAKE 1 TABLET BY MOUTH TWICE DAILY active Not Available Not Available No t Available terbinafin e HCl 250 mg tablet 10/28 completed Not Available Not Available Not Available famotidine 20 mg tablet TAKE 1 TABLET BY MOUTH TWICE DAILY active Not Available Not Available No t Available glyburide 5 mg-metform in 500 mg tablet Take 1 tablet twice a day by oral route. 10/28 completed Not Available Not Available Not Available Moxsie Ultra Test strips USE TO TEST BLOOD SUGAR TWICE A DAY active Not Available Not Available No t Available hydrocodon e 7.5 mg-acetami nophen 325 mg tablet take one tablet twice a day for DX: M54.19 2024 active Not Available Not Available Not Avai lable ranitidine 150 mg tablet 10/28 completed Not Available Not Available Not Available lisinopril 10 mg tablet TAKE 1 TABLET BY MOUTH EVERY DAY active Not Available Not Available No t Available glimepirid e 4 mg tablet TAKE 1 TABLET BY MOUTH TWICE DAILY active Not Available Not Available No t Available aspirin 81 mg chewable tablet Chew 1 tablet every day by oral route. 2012 active Not Available Not Available Not Avai lable metoprolol succinate ER 25 mg tablet,ext ended release 24 hr TAKE 1 TABLET BY MOUTH ONCE DAILY. NEEDS TO SCHEDULE APPOINTM ENT FOR FURTHER REFILLS. active Not Available Not Available No t Available albuterol sulfate HFA 90 mcg/actuat ion aerosol inhaler INHALE 2 PUFFS BY MOUTH EVERY 4 HOURS active Not Available Not Available No t Available sertraline 50 mg tablet TAKE 1 TABLET BY MOUTH EVERY DAY active Not Available Not Available No t Available TriLyte With Flavor Packets 420 gram oral solution 10/28 completed Not Available Not Available Not Available [facility] Hydrocodon e/APAP 10/28 completed Not Available Not Available Not Available Fish Oil 07/04 completed 12612 mg once a day Not Available Not Available Not Available [employer] 10/28 completed as needed Not Available Not Available Not Available multivitam in 07/04 completed once a day Not Available Not Available Not Available Lantus U-100 Insulin 10/28 completed 20 units at bedtime -starte d 05/27/07 Not Available Not Available Not Available Calcium 600 + D(3) 07/04 completed 3 x's a day Not Available Not Available Not Available Lantus Solostar U-100 Insulin 100 unit/mL (3 mL) subcutaneo us pen INJECT 40 UNITS UNDER SKIN EVERY NIGHT AT BEDTIME active Not Available Not Available No t Available lancets 28 gauge use to test blood sugar twide a day active Not Available Not Available No t Available Pen Needle 32 gauge x use to injected Lantus daily active Not Available Not Available No t Available OneTouch Ultra Blue Test Strip USE 1 STRIP TO CHECK GLUCOSE ONCE DAILY active Not Available Not Available No t Available OneTouch Delica Plus Lancet 33 gauge USE TO TEST BLOOD SUGAR TWICE A DAY active Not Available Not Available No t Available FreeStyle Grace 2 Sensor kit USE TO CHECK BLOOD SUGAR active Not Available Not Available No t Available FreeStyle Grace 2 Melrose use as directed for checking blood sugars active Not Available Not Available No t Available Vitals Date Recorded Body height Body mass index (BMI) Body weight Heart rate Body temperature Oxygen saturation Oxygen saturation in Arterial blood by Pulse oximetry Systolic blood pressure Diastolic blood pressure Provider Name and Address Organization Details Last Updated DateTime 3 149.86 cm 32.7 kg/m2 36391.9 6 g 74 /min 97 [degF] 96 % 96 % 128 mm[Hg] 64 mm[Hg] [employer] 3 16:00:18 Date Recorded Body height Body mass index (BMI) Body weight Heart rate Body temperature Oxygen saturation Oxygen saturation in Arterial blood by Pulse oximetry Systolic blood pressure Diastolic blood pressure Provider Name and Address Organization Details Last Updated DateTime 4 149.86 cm 33.1 kg/m2 27464.1 5 g 90 /min 97 [degF] 96 % 96 % 120 mm[Hg] 60 mm[Hg] [facility] 4 15:54:26 Date Recorded Body height Body mass index (BMI) Body weight Heart rate Body temperature Oxygen saturation Oxygen saturation in Arterial blood by Pulse oximetry Systolic blood pressure Diastolic blood pressure Provider Name and Address Organization Details Last Updated DateTime 4 149.86 cm 32.1 kg/m2 50125.1 9 g 102 /min 97.3 [degF] 97 % 97 % 132 mm[Hg] 70 mm[Hg] [place] [facility] [employer] [facility] 4 16:00:50 Date Recorded Pain severity - 0-10 verbal numeric rating [Score] - Reported Provider Name and Address Organization Details Last Updated DateTime 11/21/2023 0 Candelaria Pino RN [facility] [employer] [facility] 11/21/2023 16:10:30 Date Recorded Body height Body mass index (BMI) Body weight Heart rate Body temperature Oxygen saturation Oxygen saturation in Arterial blood by Pulse oximetry Systolic blood pressure Diastolic blood pressure Provider Name and Address Organization Details Last Updated DateTime 5 149.86 cm 30.3 kg/m2 07993.8 6 g 69 /min 97 [degF] 96 % 96 % 118 mm[Hg] 60 mm[Hg] [facility] [employer] [facility] 5 15:23:00 Date Recorded Body height Body mass index (BMI) Body weight Heart rate Body temperature Oxygen saturation Oxygen saturation in Arterial blood by Pulse oximetry Systolic blood pressure Diastolic blood pressure Provider Name and Address Organization Details Last Updated DateTime 5 149.86 cm 29.7 kg/m2 60175.0 8 g 77 /min 98.2 [degF] 95 % 95 % 122 mm[Hg] 68 mm[Hg] [facility] [employer] [facility] 5 15:15:25 Social History Question Answer Notes LastModified by Organization Details LastModified Time Tobacco Smoking Status Former Smoker Not Available [facility] 06/06/2022 12:45:02 Do You Have An Advance Directive? Yes [id number] Information not available 06/06/2022 What Is Your Level Of Alcohol Consumption? None [id number] Information not available 06/06/2022 Are You Blind Or Do You Have Difficulty Seeing? No [id number] Information not available 06/06/2022 Are You Deaf Or Do You Have Serious Difficulty Hearing? No [id number] [id number] Information not available 06/06/2022 What Type Of Diet Are You Following? REGULAR [id number].[id number] [id number] Information not available 06/06/2022 Have There Been Any Changes To Your Family Or Social Situation? Yes Recently Lost Her Spouse [email or web address] Information not available 11/21/2023 What Is The Fluoride Status Of Your Home? Fluoridated [id number] [id number] Information not available 06/06/2022 When Did You Quit Smoking? 16+yearssincelastc igarette [id number] [id number] Information not available 06/06/2022 Are There Any Guns Present In Your Home? No [id number] [id number] Information not available 06/06/2022 Do You Use Insect Repellent Routinely? No [email or web address] Information not available 11/21/2023 [facility] [id number] [id number] Information not available 06/06/2022 Are You Able To Care For Yourself? Yes [email or web address] Information not available 11/21/2023 Are You Blind Or Do Yo Have Difficulty Seeing? No [email or web address] Information not available 11/21/2023 Are You Deaf Or Do You Have Serious Difficulty Hearing? No [email or web address] Information not available 11/21/2023 Live Alone Of With Others? Alone [email or web address] Information not available 11/21/2023 Are You Following A Low Salt Diet? No MIGRATION.0301 [id number] Information not available 06/06/2022 Do You Have A Medical Power Of Lawyers? Yes MIGRATION.0301 [id number] Information not available 06/06/2022 What Was The Date Of Your Most Recent Tobacco Screening? 11/21/2023 [email or web address] Information not available 11/21/2023 Do You Have Any Pets? No [email or web address] Information not available 11/21/2023 What Is Your Relationship Status? [email or web address] Information not available 11/21/2023 Do You Use Your Seat Belt Or Car Seat Routinely? Yes MIGRATION.0301 [id number] Information not available 06/06/2022 Do You Have Smoke And Carbon Monoxide Detectors In Your Home? Yes MIGRATION.0301 [id number] Information not available 06/06/2022 At What Age Did You Start Smoking Tobacco? 8 MIGRATION.0301 [id number] Information not available 06/06/2022 Do You Use Any Illicit Or Recreational Drugs? No MIGRATION.0301 [id number] Information not available 06/06/2022 Do You Use Sunscreen Routinely? No [email or web address] Information not available 11/21/2023 Has Tobacco Cessation Counseling Been Provided? No MIGRATION.0301 [id number] Information not available 06/06/2022 Have You Recently Traveled Abroad? No [email or web address] Information not available 11/21/2023 Do You Have Any Dietary Restrictions? Yes MIGRATION.0301 [id number] Information not available 06/06/2022 Sex: Unknown Functional Status Question Answer Note LastModified by Organizat ion Details LastModified Time Do you have difficulty walking or climbing stairs? Yes MIGRATION.[id number] Information not available 06/06/2022 Do you have transportation difficulties? No MIGRATION.417525 [id number] Information not available 06/06/2022 Are you able to walk? YESASSIST uses a cane MIGRATION.215599 [id number] Information not available 06/06/2022 Do you have difficulty doing errands alone? No [email or web address] Information not available 11/21/2023 Are you able to care for yourself? Yes MIGRATION.101435 5207 Information not available 06/06/2022 Do you have difficulty dressing or bathing? No MIGRATION.430642 0014 Information not available 06/06/2022 What is your exercise level? None MIGRATION.348068 1721 Information not available 06/06/2022 Mental Status Question Answer Note LastModified by Organizat ion Details LastModified Time Do you have difficulty concentrating, remembering or making decisions? No MIGRATION.[id number] Information not available 06/06/2022 Family History Nothing Reported. Medical History Condition Response NERVE DISEASE N BLINDNESS N RHEUMATIC FEVER N KIDNEY STONES N BLADDER PROBLEMS N OTHER # 1 N POLIO N LUNG DISEASE/DISORDER N RADIATION / CHEMOTHERAPY N COPD Y Other # 2 N BLOOD DISEASES N SURGERY N EAR OR HEARING PROBLEMS N MUMPS N BOWEL PROBLEMS N DEPRESSION (INCLUDING POST ) N STROKE/TIA N ULCERS N BENIGN PROSTATIC HYPERPLASIA N MEASLES N MYOCARDIAL INFARCTION N OBESITY N GERD/NAUSEA N ANEURYSM N URINARY/BLADDER/KIDNEY PROBLEMS Y INPATIENT PSYCH CARE N CORONARY ARTERY DISEASE (CAD) N ADDICTION CONCERNS N ENDOMETRIOSIS N Impotence N USE OF BLOOD THINNERS N SKIN PROBLEMS N GASTROINTESTINAL DISORDER Y PERIPHERAL VASCULAR DISEASE N MUSCLE,JOINT OR BONE PROBLEMS N GASTROINTESTINAL BLEEDING N BLOOD CLOTS N ASTHMA N CATARACTS N ERECTILE DYSFUNCTION N VARICOSITIES N GI PROBLEMS N Low Testosterone N INFERTILITY N AIDS/HIV N LIVER DISEASE N MALE HYPOGONADISM N HYPERTENSION Y Deficiency N ANXIETY DISORDER N BLOOD TRANSFUSION N ANEMIA/BLOOD DISORDER N CHRONIC EAR INFECTIONS N BRONCHITIS N TUBERCULOSIS N GLAUCOMA N FOOT PROBLEM N DIVERTICULITIS N SLEEP APNEA N CHICKENPOX N INFECTIOUS DISEASE N HEART ARRHYTHMIA N PROSTATE N INSOMNIA N HIGH CHOLESTEROL / HYPERLIPIDEMIA Y HYPERTHYROIDISM N EYE PROBLEMS N NEUROLOGICAL PROBLEMS Y EDEMA N CHRONIC PAIN SYNDROME N HYPOTHYROIDISM N CAROTID BLOCKAGE N CONSTIPATION N BACK / NECK PROBLEMS N HAVE YOU BEEN HOSPITALIZED OR SEEN IN [facility] IN THE PAST YEAR ? N ATHEROSCLEROSIS N BREAST PROBLEMS N DIALYSIS N ECZEMA N OSTEOPOROSIS Y ARTHRITIS Y NO SIGNIFICANT PAST MEDICAL HISTORY N APPENDICITIS N DIABETES, TYPE Y BAD TEETH N ENT N HEARTBURN / REFLUX N AUTISM SPECTRUM DISORDER (ASD) N HEPATITIS / LIVER DISEASE N PULMONARY DISEASE N GOUT N SLEEP DISORDER N ALZHEIMER'S DISEASE N Brain Problems N HERPES N DEMENTIA N HEADACHES/MIGRAINES N SEIZURES/EPILEPSY N VASCULAR DISEASE N PACEMAKER N Blood Disorder N DIZZINESS N HEART DISEASE/HEART PROBLEMS N KIDNEY DISEASE N MULTIPLE SCLEROSIS N CARDIAC ARRHYTHMIA N CANCER: SPECIFY N ANESTHESIA COMPLICATIONS N ATRIAL FIBRILLATION N Gall Stones N PULMONARY EMBOLISM N AUTOIMMUNE DISEASE N Gynecological History Statement/Question Response Date of Last Mammogram 09/29/2021 Date of Last Colonoscopy 04/12/2021 Most Recent Bone Density 09/29/2021 Obstetrics History GPAL:G 0 P 0 0 0 0 Immunizations Vaccine Type Date Status Note Provider Nam e and Address Organization Details Recorded Time Influenza, high-dose, quadrivalent, PF 3 completed Maria Luisa Rendon MD [address] [facility], [place] [address], [place], [address], [facility] [employer] 03/29/2023 16:10:02 SARS-COV-2 (COVID-19) vaccine, UNSPECIFIED 1 completed Not Available [facility] 06/06/2022 12:47:55 SARS-COV-2 (COVID-19) vaccine, UNSPECIFIED 1 completed Not Available [facility] 06/06/2022 12:47:56 Pneumococcal conjugate PCV 13 0 completed Not Available [facility] 06/06/2022 12:47:56 pneumococcal polysaccharide PPV23 7 completed Not Available [facility] 06/06/2022 12:47:56 Influenza, high-dose, quadrivalent, PF 1 completed Not Available [facility] 06/06/2022 12:47:56 Past Encounters Encounter ID Performer Location Encounter Start Date Encounter Closed Date Diagnosis/Indication Diagnosis SNOMED-CT Code Diagnosis ICD10 Code Diagnosis Note [id number] [facility] [place] [address] [place] [address] y , [place] [address] 06/21/2020 00:00:00 06/21/2020 15:56:12 [id number] [facility] Internal [facility] [place] [address] [place] [address] y , [place] [address] 10/28/2020 00:00:00 10/28/2020 16:59:34 [id number] [facility] Internal [facility] [place] [address] [place] [address] y , [place] [address] 02/17/2021 00:00:00 02/17/2021 16:20:26 [id number] [facility] Internal [facility] [place] [address] [place] [address] y , [place] [address] 07/04/2021 00:00:00 07/04/2021 16:03:08 [id number] [facility] Internal [facility] [place] [address] [place] [address] y , [place] [address] 12/01/2021 00:00:00 12/01/2021 15:45:44 [id number] [facility] Internal [facility] [place] [address] [place] [address] y , [place] [address] 04/06/2022 00:00:00 04/06/2022 15:32:43 [id number] Maria Luisa Rendon MD [facility] Internal [facility] [place] [address] [place] [address] y , [place] [address] 08/03/2022 15:12:52 08/03/2022 16:09:36 Chronic obstructive pulmonary disease 84742454 J44.9 Essential hypertension 08927248 I10 Pure hypercholesterolemia 601181649 E78.00 Type 2 kim betes mellitus without complication 806378300 E11.9 [id number] Mari aLuisa Rendon MD [facility] Internal [facility] [place] [address] [facility] y , [place] [address] 11/30/2022 15:16:19 11/30/2022 16:02:36 Essential hypertension 34377093 I10 Pure hypercholesterolemia 148179917 E78.00 Type 2 kim betes mellitus without complication 389299734 E11.9 Chronic ob structive pulmonary disease 21604626 J44.9 Obese class I 7131242522 32543 E66.9 [id number] Maria Luisa Rendon MD [facility] Internal [facility] [place] [address] [place] [address] y , [place] [address] 03/29/2023 15:37:04 03/29/2023 16:18:08 Administration of influenza vaccine 10327006 Z23 Chronic ob structive pulmonary disease 00949107 J44.9 Pure hypercholesterolemia 781671065 E78.00 Type 2 kim betes mellitus without complication 808959193 E11.9 Essential hypertension 88190782 I10 [id number] Maria Luisa Rendon MD [facility] Internal [facility] [place] [address] [place] [address] y , [place] [address] 07/26/2023 15:53:47 07/26/2023 16:24:13 Essential hypertension 18252769 I10 Pure hypercholesterolemia 304218306 E78.00 Chronic ob structive pulmonary disease 40524211 J44.9 Chronic back pain 405858 002 M54.9 Type 2 kim betes mellitus without complication 823475969 E11.9 [id number] Maria Luisa Rendon MD [facility] Internal [facility] [place] [address] [place] [address] y , [place] [address] 11/21/2023 15:53:50 11/21/2023 16:42:52 Adult health examination 862261186 Z00.00 Screening for disorder 028215591 Z13.9 Chronic ob structive pulmonary disease 71464119 J44.9 Pure hypercholesterolemia 529344408 E78.00 Essential hypertension 49624656 I10 Type 2 kim betes mellitus without complication 235862873 E11.9 Obese class I 5430477133 95559 E66.9 [id number] Maria Luisa Rendon MD [facility] Primary Care [place] [address] [place] [address] 04/23/2024 15:09:25 04/23/2024 15:51:38 Chronic obstructive pulmonary disease 04708987 J44.9 Essential hypertension 49490272 I10 Pure hypercholesterolemia 764667852 E78.00 Type 2 kim betes mellitus without complication 953471062 E11.9 [id number] Maria Luisa Rendon MD [facility] Primary [facility] [place] [address] [place] [address] 06/04/2024 14:52:23 06/04/2024 15:57:49 Abdominal pain 21817561 R10.9 Chronic ob structive pulmonary disease 07472258 J44.9 Essential hypertension 86846926 I10 Pure hypercholesterolemia 481151523 E78.00 Type 2 kim betes mellitus without complication 657711523 E11.9 Health Concerns Section Related Observation LastModified by Organization Detai ls LastModified Time None Recorded Concern Status LastModified by Organization Details LastModified Time None Recorded Advance Directives Directive Y: Payers Encounter Date Sequence Insurance Name Policy Number Policy Anderson Covered Member ID Anderson Member ID Guarantor Name 03/29/2023 1 [facility] - [employer] - [employer] - MEDICARE COMPLETE PLAN 2 (MEDICARE REPLACEMENT HMO) [id number] Tyra Justice [id number] Tyra Justice 07/26/2023 1 [facility] - [employer] - [employer] - MEDICARE COMPLETE PLAN 2 (MEDICARE REPLACEMENT HMO) [id number] Tyra Justice [id number] Tyra Justice 11/21/2023 1 [facility] - [employer] - [employer] - MEDICARE COMPLETE PLAN 2 (MEDICARE REPLACEMENT HMO) [id number] Tyra Justice [id number] Tyra Justice 04/23/2024 1 [facility] - [employer] - [employer]URE [employer] - MEDICARE COMPLETE PLAN 2 (MEDICARE REPLACEMENT HMO) [id number] Tyra Justice [id number] Tyra Justice 06/04/2024 1 [facility] - [employer] - [employer] - MEDICARE COMPLETE PLAN 2 (MEDICARE REPLACEMENT HMO) [id number] Tyra Justice [id number] Tyra Justice Notes Date Note Type Note Provider Name and Address Organization Details Recorded Time 3 text/html Patient Name: Tyra JusticeDate Of Service: Saturday ( 03.29.2023 ): 1940 Age: 82 Vital Signs:Blood Pressure: Sitting Rt. Arm 128/64Pulse: Sitting 74 /min and RegularRespiratory Rate: 12Height 59 in or 1.5 mWeight 162 lb or 73.5 kgBMI 32.7Temperature: 97 F or 36.1 CDCCT HAIC: 6.9 Calculated MB mg%Pulse Oximetry: 96 % at rest on no oxygen Chief Complaint: Addressed in HPI Problems or conditions discussed in the HPI were the only ones reviewed during the encounter.Only social and family history addressed in the HPI were reviewed during this encounter. Attendant(s): NoneConstitutional and Systemic Symptoms:none Medication Reconciliation: from medication list. History of Present Illness #1. COPD: Hx of Emphysema currently stable. There has been no interval change in exercise tolerance an shortness of breath. No change in sputum production, color or consistency. No fever, chills, weight loss or other constitutional symptoms. Gold Scale: Mild. MRC Scale: only strenuous activity. Smoking: not currently smoking Current medications: Proair Hfa and Theodur Using nebulizer Treatments: No. Uses supplemental oxygen #2. Essential Hypertension: Stage: Stage I Interval Neurological Complaints no headaches, dizziness, weakness, visual changes, ataxia, aphasia and apraxia. No shortness of breath, orthopnea or cardiovascular symptoms. No other symptoms related to end organ damage. Pressure has been under excellent control. Currently normal. No other end organ symptoms or findings. Therapy reviewed regarding management of hypertension and includes salt restriction and Lisinopril and Metoprolol Succinate Er. #3. Type I Hypercholesterolaemia: Currently not taking medication. No interval complaints of any muscle pain or arthralgia. No significant liver changes with medications. Last lipid panel: no testing done recently. Therapy reviewed regarding treatment of cholesterol management and include diet and Atorvastatin Calcium. #4. Type II Diabetes: Has had no polyuria polyphagia or polydipsia. Has had no hypoglycemic like responses. No new history of any numbness, tingling, weakness or visual problems. No nausea, anorexia or other constitutional symptoms. There has been no foot problems or non healing lesions. The last HAIC was DCCT HAIC: 6.9 Calculated MB mg%. Average blood sugars 116-125 mg%. Checking sugars : several times a week Medication Types Include: Metformin, Sulfonylureas and Insulin Secondary complications include none. Macro-vascular complications include none. Therapy reviewed regarding diabetic management and include Amaryl, Glucophage and Lantus Solostar Pen Compliance: good Renal Protection: SUMA inhibitors Lipid management: statins Urinary microalbumin: A1 . Ophthalmological: has seen eye doctor within the last yearMedication List Reviewed and Reconciled 03/29/2023maryl 4 MG (TABLET - ORAL) One BidGlucophage 500 MG (TABLET - ORAL) One Bid For Type II DmAspirin 81 MG One DailyOs-fernie D One BidZantac 150 MG (CAPSULE - ORAL) One BidZoloft 50 MG (TABLET - ORAL) Once DailyTheodur 300 MG One Twice A DayLantus Solostar Pen 100 UNITS/ML 37 Units HsLisinopril 10 MG (TABLET - ORAL) One Daily For Blood PressureProair Hfa 0.09 MG /INH (AEROSOL, METERED - INHALATION) 2 Puffs Four Times A DayNorco 325 MG-7.5 MG (TABLET - ORAL) One Q 6 Hours Prn For PainFamotidine 20 MG (TABLET - ORAL) One Twice A DayMetoprolol Succinate Er 25 MG One Tablet DailyAtorvastatin Calcium 40 MG (TABLET - ORAL) Once DailyADRs List Reviewed 03/29/2023vandia SwellingVaccination and Igwowvpbgiyy2678-52 Tpglawmsw4649-48 Covid Lavemv3798-22 Prevnar 13 Iz2526-96 PneumovaxSurgical HistoryLeft Rotator Cuff Repair, Sebacesou cyst, Laproscopy, Rt. Breast Biopsy, Laproscopy, Hemorrhoidectomy, Cholecystecomy, EMILY BSO, Tonsillectomy, Lt. Hip SurgeryPreventative Testing Confirmed by Our Vigpnnh8901/22/2023 ALBUMIN 4.4 G/DL N10/ MICRO ALBUMIN 17.9 MG/DL N1 HAIC 6.9 % OF TOTAL HGB H009/29/2021 MAMMOGRAM / DEXA SCAN04/12/2021 COLONOSCOPY (5 YEARS) 7005/31/2017 YLAIDXILDRMMA55/07/2009 UPPER ENDOSCOPYSocial HistoryQuit smoking in 1990. Smoked up to 4 packs per day at times was at 2.5 packs daily when she quit. Total pack years approximately 50. Does drink socially. Currently retired.Family HistoryMother 60 y/o from CA of pancreasFather at 80 from CA of lung, ASHD, PA and aneurysm.Three brothers. One living alcoholic(1) CAD(2), DM(1)Two sisters one has Ca of colon. One CAD Maria Luisa Rendon MD [address] [facility], [facility] [address], [place], [address], [facility] [employer] [facility] 03/29/2023 16:24:57 4 text/html Patient Name: Tyra Blank Of Service: Saturday ( 07.26.2023 ): 1940 Age: 83 There has been approximately a 2 lb weight gain since 03/29/2023. This represents approximately a 1.2% change in weight. Weight change attributable to lifestyle changes. Vital Signs:Blood Pressure: Sitting Rt. Arm 120/60Pulse: Sitting 90 /min and RegularRespiratory Rate: 12Height 59 in or 1.5 mWeight 164 lb or 74.4 kgBMI 33.1Temperature: 97 F or 36.1 CPulse Oximetry: 96 % at rest on no oxygen Chief Complaint: Addressed in HPI Problems or conditions discussed in the HPI were the only ones reviewed during the encounter.Only social and family history addressed in the HPI were reviewed during this encounter. Attendant(s): NoneConstitutional and Systemic Symptoms:none Medication Reconciliation: from medication list. History of Present Illness #1. Essential Hypertension: Stage: Stage I Interval Neurological Complaints no headaches. No shortness of breath, orthopnea or cardiovascular symptoms. No other symptoms related to end organ damage. Pressure has been under fair control. Currently normal. No other end organ symptoms or findings. Therapy reviewed regarding management of hypertension and includes salt restriction and Lisinopril and Metoprolol Succinate Er. #2. Type II Hypercholesterolaemia: Currently taking medication and tolerating well. No interval complaints of any muscle pain or arthralgia. No significant liver changes with medications. Last lipid panel: fair control. Therapy reviewed regarding treatment of cholesterol management and include diet and Atorvastatin Calcium. #3. Type II Diabetes: Has had no polyuria polyphagia or polydipsia. Has had no hypoglycemic like responses. No new history of any numbness, tingling, weakness or visual problems. No nausea, anorexia or other constitutional symptoms. There has been no foot problems or non healing lesions. The last HAIC was 6.5-7.0. Average blood sugars 100-115 mg%. Checking sugars : several times a week Medication Types Include: Metformin, Sulfonylureas and Insulin Secondary complications include none. Macro-vascular complications include none. Therapy reviewed regarding diabetic management and include Amaryl, Glucophage and Lantus Solostar Pen Compliance: good Renal Protection: SUMA inhibitors Lipid management: statins Urinary microalbumin: A1 . Ophthalmological: has seen eye doctor within the last year #4. COPD: Hx of Emphysema currently stable. There has been no interval change in exercise tolerance an shortness of breath. No change in sputum production, color or consistency. No fever, chills, weight loss or other constitutional symptoms. Gold Scale: Moderate. MRC Scale: only strenuous activity. Smoking: currently smoking and instructed once again on cessation techniques Current medications: Theodur and Zoloft Using nebulizer Treatments: No. Uses does not use supplemental oxygen #5. Chronic back pain unchanged. No signs or symptoms suggestive of any type of saddle anesthesia or coronary equina. Overall has been doing reasonably well. No interval complaints of any new problems.: Active Medication ListAmaryl 4 MG (TABLET - ORAL) One BidGlucophage 500 MG (TABLET - ORAL) One Bid For Type II DmAspirin 81 MG One DailyOs-fernie D One BidZoloft 50 MG (TABLET - ORAL) Once DailyTheodur 300 MG One Twice A DayLantus Solostar Pen 100 UNITS/ML 37 Units HsLisinopril 10 MG (TABLET - ORAL) One Daily For Blood PressureProair Hfa 0.09 MG /INH (AEROSOL, METERED - INHALATION) 2 Puffs Four Times A DayNorco 325 MG-7.5 MG (TABLET - ORAL) One Q 6 Hours Prn For PainFamotidine 20 MG (TABLET - ORAL) One Twice A DayMetoprolol Succinate Er 25 MG One Tablet DailyAtorvastatin Calcium 40 MG (TABLET - ORAL) Once Daily Adverse Drug Reactions ReviewedAvandia Swelling Vaccination and Arvjdtafhiwv3949-42 Qlsvlbwuq4981-54 Covid Vxdkmp6723-53 Prevnar 13 Nm3778-49 Pneumovax Surgical Oeqqyal9051-13 Left Rotator Cuff Frplyj2077-02 Sebacesou ryoc2633-82 Nknivfzgce2351-28 Rt. Breast Mwwugf5320-36 Xnlkryfdrz1268-96 Zcqzzepbobegkgln3568-72 Ksocttyhihtdhx1923-78 [facility] GBT2893-97 Ehflkgxcjvmsa8886-36 Lt. Hip Surgery Preventative Jlroiog3901/22/2023 ALBUMIN 4.4 G/DL N1 MICRO ALBUMIN 17.9 MG/DL N1 HAIC 6.9 % OF TOTAL HGB H009/29/2021 MAMMOGRAM DEXA SCAN04/12/2021 COLONOSCOPY (5 YEARS) WSQXPWKTCOIKJ52/07/2009 UPPER ENDOSCOPY Social HistoryQuit smoking in 1990. Smoked up to 4 packs per day at times was at 2.5 packs daily when she quit. Total pack years approximately 50. Does drink socially. Currently retired. Family HistoryMother 60 y/o from CA of pancreasFather at 80 from CA of lung, ASHD, PA and aneurysm.Three brothers. One living alcoholic(1) CAD(2), DM(1)Two sisters one has Ca of colon. One CAD TEST RESULT RANGE UNITSHEMOGLOBIN A1C Date: 01/22/2023HEMOGLOBIN A1C 6.9 <5.7 % OF TOTAL HGBCBC (INCLUDES DIFF/PLT) Date: 01/22/2023WHITE BLOOD CELL COUNT 6.9 3.8-10.8 THOUSAND/ULHEMOGLOBIN 11.3 11.7-15.5 G/DLHEMATOCRIT 35.0 35.0-45.0 %PLATELET COUNT 159 140-400 THOUSAND/ULLIPID PANEL, STANDARD Date: 10/17/2023CHOLESTEROL, TOTAL 132 <200 MG/DLHDL CHOLESTEROL 59 > OR = 50 MG/DLTRIGLYCERIDES 110 <150 MG/DLLDL-CHOLESTEROL 53 MG/DL (CALC)COMPREHENSIVE METABOLIC PANEL, PLASMA Date: 01/22/2023SODIUM 140 135-146 MMOL/LPOTASSIUM 3.9 3.4-4.8 MMOL/LGLUCOSE 109 65-99 MG/DLUREA NITROGEN (BUN) 13 7-25 MG/DLCREATININE 0.79 0.60-0.95 MG/DLEGFR 75 > OR = 60 ML/MIN/1.99T1IRCWFJDBT, TOTAL 0.5 0.2-1.2 MG/DLALKALINE PHOSPHATASE 97 37-153 U/LAST 17 10-35 U/LALT 12 6-29 U/L Maria Luisa Rendon MD [address] [facility] [address], [place], [address], [place] [facility] [place] [employer] 07/26/2023 16:16:44 4 text/html Patient Name: Tyra Evans Of Service: November ( 11.21.2023 ): 1940 Age: 83 There has been approximately a 7 lb weight loss since 07/26/2023. This represents approximately a 4.3% change in weight. Weight change attributable to lifestyle changes. Vital Signs:Blood Pressure: Sitting Rt. Arm 132/70Pulse: Sitting 102 /min and RegularRespiratory Rate: 14Height 59 in or 1.5 mWeight 157 lb or 71.2 kgBMI 31.7Temperature: 97.3 F or 36.3 CDCCT HAIC: 8.0 Calculated MB mg%Pulse Oximetry: 97 % at rest on no oxygen Chief Complaint: Addressed in HPI Problems or conditions discussed in the HPI were the only ones reviewed during the encounter.Only social and family history addressed in the HPI were reviewed during this encounter. A significant, separate E/M service was performed to evaluate the current and new problems. Attendant(s): NoneConstitutional and Systemic Symptoms:none Medication Reconciliation: from medication list. History of Present Illness Reviewed the findings of the preventative health visit. Addressed all areas with the patient, patient's family or caregivers. Preventative examinations and testing immunizations - vaccinations all reviewed and ordered where patient was amenable to the recommendations. Cognitive function was normal. Depression addressed and where necessary medications were adjusted or instituted. End of life and living will briefly discussed with patient and where these can be filled out and legally executed. Other blood and imaging studies were ordered if considered necessary. Other recommendations may be found in the encounter note. #1. Essential Hypertension: Stage: Stage I Interval Neurological Complaints no headaches. No shortness of breath, orthopnea or cardiovascular symptoms. No other symptoms related to end organ damage. Pressure has been under excellent control. Currently normal. No other end organ symptoms or findings. Therapy reviewed regarding management of hypertension and includes salt restriction and Lisinopril and Metoprolol Succinate Er. #2. Type II Hypercholesterolaemia: Currently taking medication and tolerating well. No interval complaints of any muscle pain or arthralgia. No significant liver changes with medications. Last lipid panel: fair control. Therapy reviewed regarding treatment of cholesterol management and include diet and Atorvastatin Calcium. #3. Type II Diabetes: Has had no polyuria polyphagia or polydipsia. Has had no hypoglycemic like responses. No new history of any numbness, tingling, weakness or visual problems. No nausea, anorexia or other constitutional symptoms. There has been no foot problems or non healing lesions. The last HAIC was done by manager data. Average blood sugars 125-150 mg%. Checking sugars : infrequently Medication Types Include: diet, Metformin, Sulfonylureas and Insulin Secondary complications include none. Macro-vascular complications include none. Therapy reviewed regarding diabetic management and include Amaryl, Glucophage and Lantus Solostar Pen Compliance: good Renal Protection: SUMA inhibitors Lipid management: statins Urinary microalbumin: A1 . Ophthalmological: has seen eye doctor within the last year #4. COPD: Hx of Emphysema currently stable. There has been no interval change in exercise tolerance an shortness of breath. No change in sputum production, color or consistency. No fever, chills, weight loss or other constitutional symptoms. Gold Scale: Moderate. MRC Scale: normal walking. Smoking: not currently smoking Current medications: Proair Hfa and Theodur Using nebulizer Treatments: No. Uses does not use supplemental oxygen #5. Hx of obesity. Currently Class 1 Obesity BMI 30-34.99. Has tried numerous dietary support and supplements with no benefit. Instructed on the health consequences of the obese status particularly cancer - diabetes and heart disease. Discussed other modalities of weight loss no. Potential candidate for bariatric surgery: No. Wishes to be evaluated by Dietary: No and was offered to be evaluated and instructed by physical medicine specialist on weight loss diet. Active Medication ListAmaryl 4 MG (TABLET - ORAL) One DailyGlucophage 500 MG (TABLET - ORAL) One Bid For Type II DmAspirin 81 MG One DailyOs-fernie D One BidZoloft 50 MG (TABLET - ORAL) Once DailyTheodur 300 MG One Twice A DayLantus Solostar Pen 100 UNITS/ML 40 Units HsLisinopril 10 MG (TABLET - ORAL) One Daily For Blood PressureProair Hfa 0.09 MG /INH (AEROSOL, METERED - INHALATION) 2 Puffs Four Times A DayNorco 325 MG-7.5 MG (TABLET - ORAL) One Q 6 Hours Prn For PainFamotidine 20 MG (TABLET - ORAL) One Twice A DayMetoprolol Succinate Er 25 MG One Tablet DailyAtorvastatin Calcium 40 MG (TABLET - ORAL) Once Daily Adverse Drug Reactions ReviewedAvandia Swelling Vaccination and Rzoizrprbwfz1132-33 Uuslhtvqm4372-05 Covid Wdnozt9296-40 Prevnar 13 [id number] Pneumovax Surgical Bbwpege3844-41 Left Rotator Cuff Ihmfpz4772-66 Sebacesou qeyk0960-90 Mdeicuniah7192-37 Rt. Breast Yatomj8533-36 Ukrjjpxklu3929-79 Ruatyqxjikcwlswo7205-19 Wfagbmajpsxsfa3626-03 [facility] [id number] Rndyxwhvlsryz1560-66 Lt. Hip Surgery Preventative Testing( ) 08/30/2023 Albumin 4.7 G/DL N( ) 08/30/2023 Micro Albumin 6.3 MG/DL N( ) 08/30/2023 HAIC 8.0 % OF TOTAL HGB H(X) 09/29/2021 Mammogram 09/30/2023(X) 09/29/2021 DEXA Scan 09/30/2023( ) 04/12/2021 Colonoscopy (5 Years) 04/12/2026( ) 05/31/2017 Ophthalmology( ) 08/12/2008 Upper Endoscopy Social HistoryQuit smoking in 1990. Smoked up to 4 packs per day at times was at 2.5 packs daily when she quit. Total pack years approximately 50. Does drink socially. Currently retired. Family HistoryMother 60 y/o from CA of pancreasFather at 80 from CA of lung, ASHD, PA and aneurysm.Three brothers. One living alcoholic(1) CAD(2), DM(1)Two sisters one has Ca of colon. One CAD Maria Luisa Rendon MD [address] [facility], [address], [place], [address], [facility] [employer] 11/21/2023 16:34:44 5 text/html Patient Name: Tyra Evans Of Service: April ( 04.23.2024 ): 1940 Age: 83 There has been approximately a 7 lb weight loss since 11/21/2023. This represents approximately a 4.5% change in weight. Weight change attributable to lifestyle changes. Vital Signs:Blood Pressure: Sitting Rt. Arm 118/60Pulse: Sitting 69 /min and RegularRespiratory Rate: 16Height 59 in or 1.5 mWeight 150 lb or 68.0 kgBMI 30.3DCCT HAIC: 7.4 Calculated MB mg% Chief Complaint: Addressed in HPI Problems or conditions discussed in the HPI were the only ones reviewed during the encounter.Only social and family history addressed in the HPI were reviewed during this encounter. Attendant(s): NoneConstitutional and Systemic Symptoms:none Medication Reconciliation: from medication list. History of Present Illness #1. COPD: Hx of Emphysema currently stable. There has been no interval change in exercise tolerance an shortness of breath. No change in sputum production, color or consistency. No fever, chills, weight loss or other constitutional symptoms. Gold Scale: Moderate. MRC Scale: normal walking. Smoking: not currently smoking Current medications: Proair Hfa and Theodur Using nebulizer Treatments: No. Uses does not use supplemental oxygen #2. Essential Hypertension: Stage: Stage I Interval Neurological Complaints no headaches, dizziness, weakness, visual changes, ataxia, aphasia and apraxia. No shortness of breath, orthopnea or cardiovascular symptoms. No other symptoms related to end organ damage. Pressure has been under excellent control. Currently normal. No other end organ symptoms or findings. Therapy reviewed regarding management of hypertension and includes salt restriction and Lisinopril and Metoprolol Succinate Er. #3. Type II Hypercholesterolaemia: Currently taking medication and tolerating well. No interval complaints of any muscle pain or arthralgia. No significant liver changes with medications. Last lipid panel: fair control. Therapy reviewed regarding treatment of cholesterol management and include diet and Atorvastatin Calcium. #4. Type II Diabetes: Has had no polyuria polyphagia or polydipsia. Has had no hypoglycemic like responses. No new history of any numbness, tingling, weakness or visual problems. No nausea, anorexia or other constitutional symptoms. There has been no foot problems or non healing lesions. The last HAIC was DCCT HAIC: 7.4 Calculated MB mg%. CGM: No. Average blood sugars 125-150 mg%. Checking sugars : several times a week. Medication Types Include: Metformin, Sulfonylureas and Insulin Secondary complications include none. Macro-vascular complications include none. Therapy reviewed regarding diabetic management and include Amaryl, Glucophage and Lantus Solostar Pen Compliance: good Renal Protection: SUMA inhibitors Lipid management: statins Urinary microalbumin: A1 . Ophthalmological: has seen eye doctor within the last year. Control: Intermediate Control 7.1 - 8.0 Active Medication ListAmaryl 4 MG (TABLET - ORAL) One DailyGlucophage 500 MG (TABLET - ORAL) One Bid For Type II DmAspirin 81 MG One DailyOs-fernie D One BidZoloft 50 MG (TABLET - ORAL) Once DailyTheodur 300 MG One Twice A DayLantus Solostar Pen 100 UNITS/ML 40 Units HsLisinopril 10 MG (TABLET - ORAL) One Daily For Blood PressureProair Hfa 0.09 MG /INH (AEROSOL, METERED - INHALATION) 2 Puffs Four Times A DayNorco 325 MG-7.5 MG (TABLET - ORAL) One Q 6 Hours Prn For PainFamotidine 20 MG (TABLET - ORAL) One Twice A DayMetoprolol Succinate Er 25 MG One Tablet DailyAtorvastatin Calcium 40 MG (TABLET - ORAL) Once Daily Adverse Drug Reactions ReviewedAvandia Swelling Vaccination and Immunization( ) 2006- PNEUMOVAX(X) 2023-03 INFLUENZA( ) 2019-06 PREVNAR 13 GC(X) 2020-07 COVID TWINLINX Surgical Fakdtah1355-19 Left Rotator Cuff Dsywko4898-20 Sebacesou bexd9180-93 Hckxoshnjc0386-74 Rt. Breast Lnetgv4544-63 Fuldsdvwsc0210-52 Juaqayhtwdbevcjl6063-43 Apnccymnjngxhr8508-26 [facility] TMR5423-41 Zgycbplrzrjws7282-95 Lt. Hip Surgery Preventative Testing( ) 01/16/2024 Albumin 4.3 G/DL N( ) 01/16/2024 HAIC 7.4 % OF TOTAL HGB H( ) 08/30/2023 Micro Albumin 6.3 MG/DL N( ) 09/29/2021 Mammogram( ) 09/29/2021 DEXA Scan 09/30/2023( ) 04/12/2021 Colonoscopy (5 Years) 04/12/2026( ) 05/31/2017 Ophthalmology( ) 08/12/2008 Upper Endoscopy Social HistoryQuit smoking in 1990. Smoked up to 4 packs per day at times was at 2.5 packs daily when she quit. Total pack years approximately 50. Does drink socially. Currently retired. Family HistoryMother 60 y/o from CA of pancreasFather at 80 from CA of lung, ASHD, PA and aneurysm.Three brothers. One living alcoholic(1) CAD(2), DM(1)Two sisters one has Ca of colon. One CAD Maria Luisa Rendon MD [address] [place] [address], [address] [address], [place], [address], [facility] 04/23/2024 15:35:44 5 text/html Patient Name: Tyra Blankhumberto Of Service: May ( 06.04.2024 ): 1940 Age: 83 There has been approximately a 3 lb weight loss since 04/23/2024. This represents approximately a 2.0% change in weight. Weight change attributable to lifestyle changes. Vital Signs:Blood Pressure: Sitting Rt. Arm 122/68Pulse: Sitting 77 /min and RegularRespiratory Rate: 16Height 59 in or 1.5 mWeight 147 lb or 66.7 kgBMI 29.7Temperature: 98.2 F or 36.8 CPulse Oximetry: 95 % at rest on no oxygen Chief Complaint: Addressed in HPI Problems or conditions discussed in the HPI were the only ones reviewed during the encounter.Only social and family history addressed in the HPI were reviewed during this encounter. Attendant(s): NoneConstitutional and Systemic Symptoms:none Medication Reconciliation: from medication list. History of Present Illness #1. Abdominal Pain: Onset: today. Duration: 20-30 minutes. Location: epigastric. Description of Pain: cramping. Radiation: left lank and right flank. Associated Symptoms: diarrhea and black stools. Precipitating Factors: eating. Ameliorating Factors: none. Black Stools: yes #2. COPD: Hx of Emphysema currently stable. There has been no interval change in exercise tolerance an shortness of breath. No change in sputum production, color or consistency. No fever, chills, weight loss or other constitutional symptoms. Gold Scale: Severe. MRC Scale: SOB with changing cloths. Smoking: not currently smoking Current medications: Proair Hfa Using nebulizer Treatments: No. Uses supplemental oxygen #3. Essential Hypertension: Stage: Stage I Interval Neurological Complaints no headaches, dizziness, weakness, visual changes, ataxia, aphasia and apraxia. No shortness of breath, orthopnea or cardiovascular symptoms. No other symptoms related to end organ damage. Pressure has been under excellent control. Currently normal. No other end organ symptoms or findings. Therapy reviewed regarding management of hypertension and includes salt restriction and Lisinopril and Metoprolol Succinate Er. #4. Type II Hypercholesterolaemia: Currently taking medication and tolerating well. No interval complaints of any muscle pain or arthralgia. No significant liver changes with medications. Last lipid panel: fair control. Therapy reviewed regarding treatment of cholesterol management and include diet and Zoloft. #5. Type II Diabetes: Has had no polyuria polyphagia or polydipsia. Has had no hypoglycemic like responses. No new history of any numbness, tingling, weakness or visual problems. No nausea, anorexia or other constitutional symptoms. There has been no foot problems or non healing lesions. The last HAIC was DCCT HAIC: 7.4 Calculated MB mg%. CGM: No. Average blood sugars unknown. Checking sugars : several times a week. Medication Types Include: Metformin, Sulfonylureas and Insulin Secondary complications include none. Macro-vascular complications include none. Therapy reviewed regarding diabetic management and include Amaryl, Glucophage and Lantus Solostar Pen Compliance: good Renal Protection: SUMA inhibitors Lipid management: statins Urinary microalbumin: A1 . Ophthalmological: has seen eye doctor within the last year. Control: Intermediate Control 7.1 - 8.0 Active Medication ListAmaryl 4 MG (TABLET - ORAL) One DailyGlucophage 500 MG (TABLET - ORAL) One Bid For Type II DmAspirin 81 MG One DailyOs-fernie D One BidZoloft 50 MG (TABLET - ORAL) Once DailyTheodur 300 MG One Twice A DayLantus Solostar Pen 100 UNITS/ML 40 Units HsLisinopril 10 MG (TABLET - ORAL) One Daily For Blood PressureProair Hfa 0.09 MG /INH (AEROSOL, METERED - INHALATION) 2 Puffs Four Times A DayNorco 325 MG-7.5 MG (TABLET - ORAL) One Q 6 Hours Prn For PainFamotidine 20 MG (TABLET - ORAL) One Twice A DayMetoprolol Succinate Er 25 MG One Tablet DailyAtorvastatin Calcium 40 MG (TABLET - ORAL) Once Daily Adverse Drug Reactions ReviewedAvandia Swelling Vaccination and Immunization( ) 2006- PNEUMOVAX( ) 2023- INFLUENZA( ) 2019-06 PREVNAR 13 GC(X) 2020- COVID TWINLINX Surgical Vgxuoom6801-22 Left Rotator Cuff Oecaaj9883-51 Sebacesou yvdv7587-95 Jkyeptubbe4328-85 Rt. Breast Oipefp7870-13 Lawwgaycmp1604-95 Zgxmxwsnplapplei6309-71 Piopawfwcvgscb9718-41 [facility] [id number] Uihjzdfjzygcp2669-42 Lt. Hip Surgery Preventative Testing( ) 04/27/2024 Mammogram( ) 04/27/2024 DEXA Scan 04/27/2026( ) 01/16/2024 Albumin 4.3 G/DL N( ) 01/16/2024 HAIC 7.4 % OF TOTAL HGB H( ) 08/30/2023 Micro Albumin 6.3 MG/DL N( ) 04/12/2021 Colonoscopy (5 Years) 04/12/2026( ) 05/31/2017 Ophthalmology( ) 08/12/2008 Upper Endoscopy Social HistoryQuit smoking in 1990. Smoked up to 4 packs per day at times was at 2.5 packs daily when she quit. Total pack years approximately 50. Does drink socially. Currently retired. Family HistoryMother 60 y/o from CA of pancreasFather at 80 from CA of lung, ASHD, PA and aneurysm.Three brothers. One living alcoholic(1) CAD(2), DM(1)Two sisters one has Ca of colon. One CAD Maria Luisa Rendon MD [address] [facility], [facility] [address], [place], [address], [place] [facility] 06/04/2024 15:45:35 OBGyn Episode No OBEpisode recorded.
--- OUTSIDE RECORDS SUMMARY | 2024-06-05 14:19 | XMS_ITS | Continuity of Care Document ---
Author Organization [facility] Address [address] [place] [address] [facility] [address] [place] [address] Phone Care Team Providers Care Kiln Burner Name Role Phone Rian Santizo Unavailable Unavailable Procedures Procedure Date Eye Exam, New Patient Refraction Advance Directives Directive Yes / No Effective Date File Name No Information Encounters Encounter Description Practice Location Reason(s) For Visit Diagnoses Date Provider Providers Copied on Encounter [facility], [address], [place], [place], [id number], [place] tel:[phone] [facility] No Information [address]. [address] [facility] [address], [place], [address], [place]. tel:[phone] Family History Family Member Type Diagnosis Age At Onset No Information Payers Payer name Insurance type Covered democrat ID Authoriza tion(s) No Information Social History [...]
--- OUTSIDE RECORDS SUMMARY | 2024-06-05 14:19 | XMS_ITS | Continuity of Care Document ---
Author Organization [place] - S [facility] [employer] [facility], [facility] [place] Address [address] [facility] [place] [address] Care Team Providers Care Coding Quality Coordinator Name Role Phone MARIA LUISA RENDON Primary Care Provider [phone] MARIA LUISA RENDON Referring Provider Assessment No assessment recorded. Plan of Treatment Reminders Order Date Submit Date Provider Last Modified By Organization Details Last Modified Time Details Appointments None recorded . Lab CBC w/ auto diff 025 06/04/19 25 [facility], Carmen Kelly, [place], [address], 5 05:15:32 lipid panel, serum 025 06/04/19 25 [facility], Carmen Kelly, [place], [address], 5 05:15:29 CMP, serum or plasma 025 06/04/19 25 [facility], [place], [address], 5 05:15:31 TSH, serum or plasma 025 06/04/19 25 [facility], [place], [address], 5 05:15:34 T4, free, serum 025 06/04/19 25 [facility], [place], [address], 5 05:15:33 Referral None recorded . Procedures None recorded . Surgeries None recorded . Imaging None recorded . Medication Orders None recorded . Patient TargetsNo targets recorded. Patient Instructions Encounter Date Encounter Id Patient Instructions Last Modified By Organization Details Last Modified Time 06/04/2024 [id number] complete blood count (CBC): about this test [email or web address] Not available 06/04/2024 15:45:30 Reason for Referral None Reported. Problems Name Problem SNOMED Code Status Onset Date Resolution Date Notes Provider Name and Address Organization Details Recorded Time Renewal of prescripti on Active 2021 Not Available [facility] 3 12:45:37 Chronic obstructiv e pulmonary disease 75355099 Active 2020 Not Available [facility] 3 12:45:37 Senile osteoporos is 41075338 Active 2021 Not Available [facility] 3 12:45:37 Pure hyperchole sterolemia 911026469 Active 2020 Not Available [facility] 3 12:45:37 Low back pain 321536171 Active 2021 Not Available [facility] 3 12:45:37 Recurrent dislocatio n of shoulder region 21188282 Active Not Available [facility] 3 12:45:37 Enthesopat hy of hip region 52753000 Active Not Available [facility] 3 12:45:37 Type 2 diabetes mellitus without complicati on 579723925 Active 2020 Not Available [facility] 3 12:45:37 Vitamin D deficiency 07862591 Active 2021 Not Available [facility] 3 12:45:38 Disorder of rotator cuff 897216813 Active Not Available [facility] 3 12:45:38 History of polyp of colon 252642625 Active 2020 Not Available [facility] 3 12:45:38 Disorder of bursa of shoulder region 68425847 Active Not Available [facility] 3 12:45:38 Essential hypertensi on 34198937 Active 2020 Not Available [facility] 3 12:45:38 Pulmonary hypertensi on 02885418 Active 2021 Not Available [facility] 3 12:45:38 Chronic back pain 682159414 Active 2022 SHELLEY Ruggiero, [facility] 3 14:39:22 Obese class I 6793216288790 07 Active 2022 Maria Luisa Rendon MD [address], [place], [address] , [facility] 3 15:47:21 Depressive disorder 33826719 Active 2023 SHELLEY Ruggiero, [facility] 4 17:35:48 Trigger finger of right hand 6394807664296 9101 Active 2024 Fariba lopez, [facility] 5 15:49:08 Abdominal pain 71050206 Active 2024 Maria Luisa Rendon MD [address], [place], [address] , [facility] 5 15:37:51 Type 2 diabetes mellitus 84957591 Active 2024 Fariba lopez, [facility] 5 15:48:29 Problem Notes None recorded. Procedures Surgical History Date Name Laterality Status Provider Name and Address Organization Details Recorded Time 11/21/19 24 Medicare Wellness CPT Code, subsequent completed Candelaria Pino RN [facility] [employer] [facility] 11/21/2023 16:10:12 09/30/19 22 Most Recent Bone Density completed Not Available [facility] 06/06/2022 12:45:05 04/12/19 22 Date of Last Colonoscopy completed Not Available [facility] 06/06/2022 12:45:05 Imaging Results None recorded. Procedure Notes None recorded. Medical Equipment None Reported. Allergies Allergen ID Allergen Name Allergen Category Reaction Reaction Severity Criticality Documentation Date Start Date Code Code System Note Provider Name and Address Organization Details Recorded Time 89311 Iodinated contrast media (substanc e) medicatio n Not available Not available Not available 06/06/2022 70407 2003 SNOMED Not Available [facility] 3 12:47:59 Medications Name Sig Start Date Stop [...] completed Not Available Not Available Not Available OneTouch Ultra Test strips USE TO TEST BLOOD [...] Available Not Available Fish Oil 07/04 completed 08394 mg once a day Not Available Not [...] Available No t Available FreeStyle Grace 2 Jasper use as directed for checking blood sugars active Not Available Not Available No t Available Vitals Date Recorded Body height Body mass index (BMI) Body weight Heart rate Body temperature Oxygen saturation Oxygen saturation in Arterial blood by Pulse oximetry Systolic blood pressure Diastolic blood pressure Provider Name and Address Organization Details Last Updated DateTime 5 149.86 cm 29.7 kg/m2 64365.0 8 g 77 /min 98.2 [degF] 95 % 95 % 122 mm[Hg] 68 mm[Hg] Susie Gomez Halley [employer] 5 15:15:25 Social History Question Answer Notes LastModified by Organization Details LastModified Time Tobacco Smoking Status Former Smoker Not Available [facility] 06/06/2022 12:45:02 Do You Have An Advance Directive? Yes MIGRATION.0301 086836 Information not available 06/06/2022 What Is Your Level Of Alcohol Consumption? None MIGRATION.0301 217291 Information not available 06/06/2022 Are You Blind Or Do You Have Difficulty Seeing? No MIGRATION.0301 668288 Information not available 06/06/2022 Are You Deaf Or Do You Have Serious Difficulty Hearing? No MIGRATION.0301 100082 Information not available 06/06/2022 What Type Of Diet Are You Following? REGULAR MIGRATION.0301 645746 Information not available 06/06/2022 Have There Been Any Changes To Your Family Or Social Situation? Yes Recently Lost Her Spouse [email or web address] Information not available 11/21/2023 What Is The Fluoride Status Of Your Home? Fluoridated MIGRATION.0301 488295 Information not available 06/06/2022 When Did You Quit Smoking? 16+yearssincelastc igarette MIGRATION.0301 174565 Information not available 06/06/2022 Are There Any Guns Present In Your Home? No MIGRATION.0301 653150 Information not available 06/06/2022 Do You Use Insect Repellent Routinely? No [email or web address] Information not available 11/21/2023 [facility] M[facility].0301 931709 Information not available 06/06/2022 Are You Able To Care For Yourself? Yes [email or web address] Information not available 11/21/2023 Are You Blind Or Do Yo Have Difficulty Seeing? No [email or web address] Information not available 11/21/2023 Are You Deaf Or Do You Have Serious Difficulty Hearing? No [email or web address] Information not available 11/21/2023 Live Alone Of With Others? Alone [email or web address] Information not available 11/21/2023 Are You Following A Low Salt Diet? No MIGRATION.0301 545240 Information not available 06/06/2022 Do You Have A Medical Power Of Brand Development Manager? Yes MIGRATION.0301 642149 Information not available 06/06/2022 What Was The Date Of Your Most Recent Tobacco Screening? 11/21/2023 [email or web address] Information not available 11/21/2023 Do You Have Any Pets? No [email or web address] Information not available 11/21/2023 What Is Your Relationship Status? [email or web address] Information not available 11/21/2023 Do You Use Your Seat Belt Or Car Seat Routinely? Yes MIGRATION.0301 659010 Information not available 06/06/2022 Do You Have Smoke And Carbon Monoxide Detectors In Your Home? Yes MIGRATION.0301 001536 Information not available 06/06/2022 At What Age Did You Start Smoking Tobacco? 8 MIGRATION.0301 559294 Information not available 06/06/2022 Do You Use Any Illicit Or Recreational Drugs? No MIGRATION.0301 679880 Information not available 06/06/2022 Do You Use Sunscreen Routinely? No [email or web address] Information not available 11/21/2023 Has Tobacco Cessation Counseling Been Provided? No MIGRATION.0301 839771 Information not available 06/06/2022 Have You Recently Traveled Abroad? No [email or web address] Information not available 11/21/2023 Do You Have Any Dietary Restrictions? Yes MIGRATION.0301 039067 Information not available 06/06/2022 Sex: Unknown Functional Status Question Answer Note LastModified by Organizat ion Details LastModified Time Do you have difficulty walking or climbing stairs? Yes MIGRATION.694265 9130 Information not available 06/06/2022 Do you have transportation difficulties? No MIGRATION.745058 4061 Information not available 06/06/2022 Are you able to walk? YESASSIST uses a cane MIGRATION.153558 3001 Information not available 06/06/2022 Do you have difficulty doing errands alone? No [email or web address] Information not available 11/21/2023 Are you able to care for yourself? Yes MIGRATION.825210 9678 Information not available 06/06/2022 Do you have difficulty dressing or bathing? No MIGRATION.380570 1400 Information not available 06/06/2022 What is your exercise level? None MIGRATION.785699 9049 Information not available 06/06/2022 Mental Status Question Answer Note LastModified by Organizat ion Details LastModified Time Do you have difficulty concentrating, remembering or making decisions? No MIGRATION.498301951 6 Information not available 06/06/2022 Family History Nothing Reported. Medical History Condition Response NERVE DISEASE N BLINDNESS N RHEUMATIC FEVER N KIDNEY STONES N BLADDER PROBLEMS N OTHER # 1 N POLIO N LUNG DISEASE/DISORDER N COPD Y RADIATION / CHEMOTHERAPY N Other # 2 N BLOOD DISEASES N SURGERY N EAR OR HEARING PROBLEMS N MUMPS N DEPRESSION (INCLUDING POST ) N BOWEL PROBLEMS N STROKE/TIA N ULCERS N BENIGN PROSTATIC HYPERPLASIA N MEASLES N MYOCARDIAL INFARCTION N OBESITY N GERD/NAUSEA N ANEURYSM N URINARY/BLADDER/KIDNEY PROBLEMS Y CORONARY ARTERY DISEASE (CAD) N INPATIENT PSYCH CARE N ADDICTION CONCERNS N Impotence N ENDOMETRIOSIS N USE OF BLOOD THINNERS N SKIN [...] GLAUCOMA N FOOT PROBLEM N DIVERTICULITIS N CHICKENPOX N SLEEP APNEA N INFECTIOUS DISEASE N HEART ARRHYTHMIA N PROSTATE N INSOMNIA N HIGH CHOLESTEROL / HYPERLIPIDEMIA Y EYE PROBLEMS N HYPERTHYROIDISM N NEUROLOGICAL PROBLEMS Y EDEMA N CHRONIC PAIN SYNDROME N HYPOTHYROIDISM N CAROTID BLOCKAGE N CONSTIPATION N BACK / NECK PROBLEMS N HAVE YOU BEEN HOSPITALIZED OR SEEN IN [facility] IN THE PAST YEAR ? N [...] Brain Problems N HERPES N DEMENTIA N SEIZURES/EPILEPSY N HEADACHES/MIGRAINES N VASCULAR DISEASE N PACEMAKER N Blood Disorder N DIZZINESS N KIDNEY DISEASE N HEART DISEASE/HEART PROBLEMS N MULTIPLE SCLEROSIS N CARDIAC ARRHYTHMIA N CANCER: SPECIFY N ANESTHESIA COMPLICATIONS N Gall Stones N ATRIAL FIBRILLATION N PULMONARY EMBOLISM N AUTOIMMUNE DISEASE N Gynecological History Statement/Question Response Date of Last Mammogram 09/29/2021 Date of Last Colonoscopy 04/12/2021 Most Recent Bone Density 09/29/2021 Obstetrics History GPAL:G 0 P 0 0 0 0 Immunizations Vaccine Type Date Status Note Provider Nam e and Address Organization Details Recorded Time Influenza, high-dose, quadrivalent, PF 3 completed Maria Luisa Rendon MD [address] [facility] [address], [address], [facility] [employer] 03/29/2023 16:10:02 SARS-COV-2 (COVID-19) vaccine, UNSPECIFIED 1 completed Not Available [facility] 06/06/2022 12:47:55 SARS-COV-2 (COVID-19) vaccine, UNSPECIFIED 1 completed Not Available [facility] 06/06/2022 12:47:56 Pneumococcal conjugate PCV 13 0 completed Not Available [facility] 06/06/2022 12:47:56 pneumococcal polysaccharide PPV23 7 completed Not Available [facility] 06/06/2022 12:47:56 Influenza, high-dose, quadrivalent, PF 1 completed Not Available [facility] 06/06/2022 12:47:56 Past Encounters Encounter ID Performer Location Encounter Start Date Encounter Closed Date Diagnosis/Indication Diagnosis SNOMED-CT Code Diagnosis ICD10 Code Diagnosis Note [id number] Maria Luisa Rendon MD [facility] [address] [facility] [place] [address] 06/04/2024 14:52:23 06/04/2024 15:57:49 Abdominal pain 70326649 R10.9 Chronic ob structive pulmonary disease 89938980 J44.9 Essential hypertension 11054144 I10 Pure hypercholesterolemia 624477954 E78.00 Type 2 kim betes mellitus without complication 890655593 E11.9 Health Concerns Section Related Observation LastModified by Organization Detai ls LastModified Time None Recorded Concern Status LastModified by Organization Details LastModified Time None Recorded Payers Encounter Date Sequence Insurance Name Policy Number Policy Anderson Covered Member ID Anderson Member ID Guarantor Name 06/04/2024 1 [employer] - [employer] - [employer]URE [employer] - MEDICARE COMPLETE PLAN 2 (MEDICARE REPLACEMENT HMO) [id number] Tyra Justice [id number] Tyra Justice Notes Date Note Type Note Provider Name and Address Organization Details Recorded Time 06/04/2024 text/html Patient Name: January JusticeDate Of Service: May ( 06.04.2024 ): 1940 [...] Vaccination and Immunization( ) 2006- PNEUMOVAX( ) 2023-12 INFLUENZA( ) 2019-06 PREVNAR 13 GC(X) 2020-07 COVID PFIZER Surgical Haizong0601-19 Left Rotator Cuff Zuizod9651-83 Sebacesou tunh3293-64 Ncqawpssyr0155-41 Rt. Breast Yscxlp0598-65 Ikvfdvelay6873-00 Ooqmmkbjhtxsmsap8518-58 Lpsmvzkxttsyec9304-61 [facility] QZW0009-92 Cvnlsirkabkcp1413-91 Lt. Hip Surgery Preventative Testing( ) 04/27/2024 [...] at 81 from CA of lung, ASHD, [place] and aneurysm.Three brothers. One living alcoholic(1) CAD(2), DM(1)Two sisters one has Ca of colon. One CAD Maria Luisa Rendon MD [address] [facility] [facility] [address], [place], [address], [place] [facility] [employer] 06/04/2024 15:45:35 OBGyn Episode No OBEpisode recorded.
[2024-06-05 15:11] LABS: Basophils Percent Auto 0.6 % (0.2-1.2); Eosinophils Absolute Auto 0.1 K/mm3 (0-0.3); Eosinophils Percent Auto 2.3 % (0-4.4); Hematocrit 26.3 % (37.0-47.0); Hemoglobin 7.4 g/dL (12.0-15.0); Immature Granulocyte Absolute 0.01 K/mm3 (0.00-0.031); Immature Granulocyte Percent A 0.2 % (0-0.5); Immature Platelet Fraction Pct 7.4 % (0.9-11.2); Lymphocytes Absolute Auto 0.78 K/mm3 (0.9-3.2); Mean Corpuscular HGB Conc 28.1 g/dl (32-36); Mean Corpuscular Hemoglobin 22.4 pg (26-34); Mean Corpuscular Volume 79.5 fl (80-100); Mean Platelet Volume 11.6 fl (7.4-10.4); Monocytes Absolute Auto 0.6 K/mm3 (0.1-0.6); Neutrophils Absolute Auto 3.7 K/mm3 (1.3-6.7); Neutrophils Percent Auto 70.9 % (45.5-73.1); Platelet Count Result 130 k/mm3 (150-375); Red Blood Count 3.31 M/mm3 (4.2-5.4); Red Cell Distribution Width 21.4 % (11.5-14.5); White Blood Count 5.2 K/mm3 (4.5-10.0)
[2024-06-05 15:25] LABS: Alanine Aminotransferase 20 U/L (6-35); Albumin Level 3.9 g/dL (3.5-5.1); Alkaline Phosphatase 84 U/L (38-126); Anion Gap 8 mmol/L (4-12); Aspartate Amino Transferase 22 U/L (14-36); Bilirubin,Total 0.5 mg/dL (0.2-1.3); Blood Urea Nitrogen 14 mg/dL (7-17); Calcium 9.9 mg/dL (8.4-10.2); Carbon Dioxide 28 mmol/L (22-30); Chloride 103 mmol/L (98-107); Estimated Glomerular Filt Rate > 60; Glucose 155 mg/dL (65-110); Potassium 4.1 mmol/L (3.4-5.0); Sodium 139 mmol/L (137-145)
[2024-06-05 15:32] LABS: Hypochromasia 1+; Ovalocytes 1+; Platelet Estimate Decreased (Adequate)
[2024-06-05 15:33] LABS: Schistocytes None Seen
[2024-06-05 15:35] LABS: INR 1.1; Prothrombin Time 14.2 Seconds (11.1-14.7)
[2024-06-05 15:36] LABS: Partial Thromboplastin Time 26.1 Seconds (22.3-36.8)
--- OUTSIDE RECORDS SUMMARY | 2024-06-05 16:37 | XMS_ITS | Referral Summary ---
Author Organization [facility] Address [address] [place] [address] Care Team Providers Care Price Economist Name Role Phone Dain Rendon MD Primary Care Provider Encounters Date Type Department Care Team Description 05/13/2024 2:00 PM LAMINATION BUILDER Ancillary Procedure [facility] Medical [facility] Cardiology [address] [place] [address] ESPINO (dyspnea on exertion); Hypertension associated with diabetes (HCC) 03/18/2024 2:00 PM LAMINATION BUILDER Office Visit [facility] Medical [facility] Cardiology [address] [place] [address] Jeannette Owens MD ESPINO (dyspnea [...] on file Legal Sex Female 12:27 AM LAMINATION BUILDER Gender Identity Not on file Sexual Orientation Not on file Last Filed Vital Signs Vital Sign Reading Time Taken Comments Blood Pressure 136/60 03/18/2024 2:12 PM LAMINATION BUILDER Pulse 75 03/18/2024 2:12 PM LAMINATION BUILDER Temperature - - Respiratory Rate - - Oxygen Saturation 97% 03/18/2024 2:12 PM LAMINATION BUILDER Inhaled Oxygen Concentration - - Weight 68.9 kg (152 lb) 03/18/2024 2:12 PM LAMINATION BUILDER Height 149.9 cm (4' 11 ) 03/18/2024 2:12 PM LAMINATION BUILDER Body Mass Index 30.7 03/18/2024 2:12 PM LAMINATION BUILDER Plan of Treatment Not on file Procedures Procedure Name Priority Date/Time Associated Diagnosis Comments TRANSTHORACIC ECHO (TTE) COMPLETE W DOPPLER/CF WO CONTRAST Routine 05/13/2024 2:34 PM LAMINATION BUILDER ESPINO (dyspnea on exertion) Hypertension associated with diabetes (HCC) SERUM LIPID PANEL Routine 11/09/2015 11: 10 PM CDT from Last 3 Months or Most Recently Relevant to Health Maintenance Results * TRANSTHORACIC ECHO (TTE) COMPLETE W DOPPLER/CF WO CONTRAST (05/13/2024 2:34 PM LAMINATION BUILDER) LV EF % CONS SCIMAGE Anatomical Region Laterality Modality Ultrasound 05/13/2024 1:58 PM LAMINATION BUILDER Narrative 05/13/2024 3:01 PM LAMINATION BUILDER [facility] Medical Group Cardiology [address], [place] [address] [address] [facility] [address], [place] [address] P:[phone] P:[phone] Echocardiographic Report Patient Name: LULA TOLEDO : 1940 Study Date: 05/13/2024 1:58:54 PM Gender: F Tech: Location: [facility] Provider: JEANNETTE OWENS Height(Cm): 150 BSA: [...] FINDINGS: Interpretation Site: Exam was interpreted at [facility]. Left Ventricle: Normal left ventricular size. Moderate [...] jet. Electronically Signed By: Jeannette Owens MD, [facility] 05/13/2024 3:00:56 PM LAMINATION BUILDER Procedure Note Jeannette Owens MD - 05/13/2024 [facility] Medical Group Cardiology [address] [facility] [address], [place] [address] [address] [facility] [address], [place] [address] P:[phone] P:[phone] Echocardiographic Report Patient Name: LULA TOLEDO : 1940 Study Date: 05/13/2024 1:58:54 PM Gender: F Tech: Location: [facility] Provider: JEANNETTE OWENS Height(Cm): 150 BSA: [...] FINDINGS: Interpretation Site: Exam was interpreted at [facility]. Left Ventricle: Normal left ventricular size. Moderate [...] jet. Electronically Signed By: Jeannette Owens MD, [facility] 05/13/2024 3:00:56 PM LAMINATION BUILDER Jeannette Owens MD CV ECHO PROCEDURES Final [...] Relevant to Health Maintenance Insurance MEDICARE SOLUTIONS [facility] Address: [address] [address] [place] [address] MEDICARE [employer]IONS [facility] Address: [address] [address] [place] [address] Care Teams Price Economist Relationship Specialty Start Date End Date Dain Rendon MD PCP - General 01/02/10
--- OUTSIDE RECORDS SUMMARY | 2024-06-05 16:37 | XMS_ITS | Clinical Summary ---
Author Organization [facility] Address [address] [place] [address] Care Team Providers Care Patternmaker Name Role Phone Dain Rendon MD Primary [...] Department Care Team Description 05/13/2024 2:00 PM SIGNAL FITTER Ancillary Procedure [facility] Medical Group Cardiology [address] [facility] [address] [place] [address] ESPINO (dyspnea on exertion); Hypertension associated with diabetes (HCC) 03/18/2024 2:00 PM SIGNAL FITTER Office Visit [facility] Medical [facility] Cardiology [address] [facility] [address] [place] [address] Chan Owens MD ESPINO (dyspnea on exertion) (Primary Dx); Hypertension associated with diabetes (HCC); PSVT (paroxysmal supraventricular tachycardia) (HCC); Chronic obstructive pulmonary disease, unspecified COPD type (HCC); History of tobacco abuse from Last 3 Months Surgical History Surgery Date Site/Laterality Comments CHOLECYSTECTOMY 1982 Cholecystectomy TONSILLECTOMY Tonsillectomy HIP ARTHROPLASTY Hip replacement SC APPENDECTOMY Appendectomy - (Added by TW Conv) SC TONSILLECTOMY PRIMARY/SEC ONDARY <AGE 12 Tonsillectomy - (Added by TW Conv) GALLBLADDER SURGERY Gallbladder Surgery - (Added by TW Conv) HIP SURGERY Hip Surgery - (Added by TW Conv) SC HEMORRHOIDECTOMY INTERNAL RUBBER BAND LIGATIONS Hemorrhoidectomy - (Added by TW Conv) ROTATOR CUFF REPAIR Rotator Cuff Repair - (Added by TW Conv) SC BIOPSY BREAST OPEN INCISIONAL Incisional Breast Biopsy - (Added by TW Conv) SC LAPS ABD PRTM&OMENTUM DX W/WO SPEC BR/WA SPX Laparoscopy (Diagnostic) - (Added by TW Conv) SC CYSTO W/INSERT URETERAL STENT Cystoscopy With Insertion Of Ureteral Stent - (Added by TW Conv) SC SLING OPERATION STRESS INCONTINENCE Vaginal Sling Operation For Stress Incontinence - (Added by TW Conv) SC CMBND ANTERPOST COLPORRAP HY W/CYSTO W/NTRCL RPR Colporrhaphy Combined A-P And Enterocele Repair - (Added by TW Conv) SC COLPOCLEISIS [place] TYPE Vaginal Colpocleisis ([place] Procedure) - (Added by TW Conv) SC VAGINECTOMY COMPLETE ENRIQUE JINNY VAGINAL WALL Vaginectomy [...] diabetes mellitus - (Added by TW Conv) long term care administrator current use of aspirin Current use of [...] on file Legal Sex Female 12:27 AM SIGNAL FITTER Gender Identity Not on file Sexual Orientation Not on file Obstetrics History Last Filed Vital Signs Vital Sign Reading Time Taken Comments Blood Pressure 136/60 03/18/2024 2:12 PM SIGNAL FITTER Pulse 75 03/18/2024 2:12 PM SIGNAL FITTER Temperature - - Respiratory Rate - - Oxygen Saturation 97% 03/18/2024 2:12 PM SIGNAL FITTER Inhaled Oxygen Concentration - - Weight 68.9 kg (152 lb) 03/18/2024 2:12 PM SIGNAL FITTER Height 149.9 cm (4' 11 ) 03/18/2024 2:12 PM SIGNAL FITTER Body Mass Index 30.7 03/18/2024 2:12 PM SIGNAL FITTER Plan of Treatment Health Maintenance Due Date [...] DOPPLER/CF WO CONTRAST Routine 05/13/2024 2:34 PM SIGNAL FITTER ESPINO (dyspnea on exertion) Hypertension associated with diabetes (HCC) SERUM LIPID PANEL Routine 11/09/2015 11: 10 PM CDT from Last 3 Months or Most Recently Relevant to Health Maintenance Results * TRANSTHORACIC ECHO (TTE) COMPLETE W DOPPLER/CF WO CONTRAST (05/13/2024 2:34 PM SIGNAL FITTER) LV EF % CONS SCIMAGE Anatomical Region Laterality Modality Ultrasound 05/13/2024 1:58 PM SIGNAL FITTER Narrative 05/13/2024 3:[address] [facility] Medical Group Cardiology [address], [place] [address], [place] [address] P:[phone] P:[phone] Echocardiographic Report Patient Name: LULA TOLEDO : 1940 Study Date: 05/13/2024 1:58:54 PM Gender: F Tech: Location: [facility] Provider: CHAN OWENS Height(Cm): 150 BSA: 1.69 [...] FINDINGS: Interpretation Site: Exam was interpreted at [facility]. Left Ventricle: Normal left ventricular size. Moderate [...] jet. Electronically Signed By: Chan Owens MD, [facility] 05/13/2024 3:00:56 PM SIGNAL FITTER Procedure Note Chan Owens MD - 05/13/2024 [facility] Medical Group Cardiology [address], [place] [address] [address] [facility] [address], [place] [address] P:[phone] P:[phone] Echocardiographic Report Patient Name: LULA TOLEDO : 1940 Study Date: 05/13/2024 1:58:54 PM Gender: F Tech: Location: [place] Ref Provider: CHAN OWENS Height(Cm): 150 BSA: [...] FINDINGS: Interpretation Site: Exam was interpreted at [facility]. Left Ventricle: Normal left ventricular size. Moderate [...] jet. Electronically Signed By: Chan Owens MD, [facility] 05/13/2024 3:00:56 PM SIGNAL FITTER us Chan Owens MD CV ECHO PROCEDURES [...] Insurance MEDICARE SOLUTIONS MEDICARE SOLUTIONS Care Teams Patternmaker Relationship Specialty Start Date End Date Dain Rendon MD PCP - General 01/02/10
--- OUTSIDE RECORDS SUMMARY | 2024-06-05 16:38 | XMS_ITS | Continuity of Care Document ---
Author Organization [facility] [address] [place] [address] [facility] [address] [place] [address] Phone Care Team Providers Care Supervisor Backfilling Name Role Phone Rian Santizo Unavailable Unavailable Procedures Procedure Date Eye Exam, New Patient Refraction Advance Directives Directive Yes / No Effective Date File Name No Information Encounters Encounter Description Practice Location Reason(s) For Visit Diagnoses Date Provider Providers Copied on Encounter [facility], [address], [place], [place], [id number], [place] tel:[phone] [facility] No Information [address] [facility] [address], [place], [address], [place]. tel:[phone] Family History Family Member Type Diagnosis Age [...]
--- NOTE | 2024-06-05 17:53 | ED_ITS ---
HPI - General Adult General Chief complaint: Recheck/Abnormal Lab/Rx Stated complaint: blood count low Time Seen by Provider: 06/05/24 16:17 Source: patient Mode of arrival: ambulatory Limitations: no limitations History of Present Illness HPI narrative: 83 YEARS OLD WHITE FEMALE CAME TO THE ED BY PRIVATE CAR COMPLAINING OF NOT BEEN FEELING WELL, FOR THE LAST 3-5 WEEKS, WEAKNESS, SHORTNESS OF BREATH ON EXERTION, INTERMITTENT DIARRHEA OF BLACK STOOL 2-3 EPISODES A DAY. PATIENT WAS SEEN BY HER FAMILY PHYSICIAN YESTERDAY, TODAY HAD A PHONE CALL TO GO TO THE EMERGENCY ROOM IMMEDIATELY FOR CRITICAL HEMOGLOBIN. PATIENT DENIES VOMITING BLOOD OR PASSING BLOOD PER RECTUM. SHE IS TELLING ME THAT THE DIARRHEA IS DARK COLOR. PATIENT ON BABY ASPIRIN ONCE A DAY Related Data Home Medications ?Medication ?Instructions ?Recorded ?Confirmed ?Last Taken ?Type albuterol sulfate 90 mcg/actuation 1 inh inhalation QID PRN SOB 03/23/21 05/14/24 04/10/21 History aerosol inhaler (ProAir HFA) aspirin 81 mg tablet 81 mg PO DAILY 03/23/21 05/14/24 04/10/21 History atorvastatin 40 mg tablet 40 mg PO DAILY 03/23/21 05/14/24 04/10/21 History calcium 500 mg tablet 500 mg PO DAILY 03/23/21 05/14/24 04/10/21 History famotidine 20 mg tablet 20 mg PO BID 03/23/21 05/14/24 04/10/21 History glimepiride 4 mg tablet 4 mg PO BID 03/23/21 05/14/24 04/10/21 History hydrocodone 7.5 mg-acetaminophen 1 tablet PO BID PRN Pain 03/23/21 05/14/24 04/10/21 History 325 mg tablet lisinopril 10 mg tablet 10 mg PO DAILY 03/23/21 05/14/24 04/10/21 History mecobalamin (vitamin B12) 5,000 500 mcg PO DAILY 03/23/21 05/14/24 04/10/21 History mcg disintegrating tablet metformin 500 mg tablet 500 mg PO BID 03/23/21 05/14/24 04/10/21 History multivit with minerals-iron 18 1 tablet PO DAILY 03/23/21 05/14/24 04/10/21 History mg-folic ac 400 mcg-vit K 25 mcg tablet (Adults Multivitamin) theophylline 300 mg 300 mg PO BID 03/23/21 05/14/24 04/10/21 History tablet,extended release,12 hr insulin glargine 100 unit/mL 40 unit subcut .HS 05/14/24 05/14/24 Unknown History subcutaneous solution (Lantus U-100 Insulin) Allergies Allergy/AdvReac Type Severity Reaction Status Date / Time empagliflozin (From Allergy Mild unkown Verified 05/14/24 13:34 Jardiance) ioversol Allergy Unknown Unknown Verified 05/14/24 13:27 codeine AdvReac Intermediate NAUSEA/VOMI Verified 05/14/24 13:27 TING Contrast Media Allergy Severe CARDIA/RESP Uncoded 05/14/24 13:27 ARREST Review of Systems 2 Review of Systems: All systems reviewed & are unremarkable except as noted in HPI and below PMFSH Family History Family History Sibling Family history of alcoholism Family history of heart disease in male family member before age 55 Father Family history of lung cancer Family history of heart disease in male family member before age 55 Other Diabetes mellitus Hypertension Social History Social History Smoking packs per day: 4 Smoking cigarettes per day: 80.0 Years smoked: 60 Smoking pack-years: 240.00 Smoking status: Never smoker Alcohol intake: never Substance use: never Do You Feel Safe in your Home?: Yes Lack of Transportation: No Lack of Food: Never True Current Housing: I Have Housing Concerned About Future Housing: No Difficulty Paying Gas/Electric Bills: No Difficulty Paying for Meds: No Currently Unemployed: No Education: High School Diploma/GED Difficulty w/ Childcare or Family Care: No Exam 2 Narrative: GENERAL APPEARANCE: WELL-DEVELOPED, WELL-NOURISHED SKIN: PALE HEAD: NORMOCEPHALIC, NONTRAUMATIC EYES: CLEAR CONJUNCTIVA ENT: OROPHARYNX NORMAL, EARS NORMAL, NOSE NORMAL NECK: SUPPLE, NONTENDER CHEST AND RESPIRATORY: AIRWAY PATENT, NO RESPIRATORY DISTRESS, NO ACCESSORY MUSCLE USE HEART: REGULAR RATE/RHYTHM ABDOMEN: SOFT, NONTENDER, NO ORGANOMEGALY, QUIET BOWEL SOUNDS, RECTAL EXAM SHOWED NO STOOL IN THE RECTAL POUCH, GUAIAC NEGATIVE VASCULAR: NORMAL PERIPHERAL PULSES, NORMAL CAPILLARY REFILL. MUSCULOSKELETAL: NORMAL RANGE OF MOTION, NONTENDER BACK NEUROLOGIC: ALERT AND ORIENTED ?3, OIL AND GAS LEASE PUMPER IS NORMAL TESTED, NO GROSS MOTOR DEFICIT Course Consultations Consultation #1: DR. ALBERT ADMIT TO HOSPITALIST DO NOT GIVE BLOOD AT THIS TIME Date: 06/05/24 Time: 18:01 Vital Signs Vital signs: Vital Signs Temperature 36.9 C 06/05/24 14:17 Pulse Rate 74 06/05/24 14:17 Respiratory Rate 18 06/05/24 14:17 Blood Pressure 128/43 L 06/05/24 14:17 Pulse Oximetry 98 06/05/24 14:17 Oxygen Delivery Room Air 06/05/24 14:17 Temperature 36.9 C 06/05/24 14:17 Pulse Rate 65 06/05/24 17:19 Respiratory Rate 18 06/05/24 17:19 Blood Pressure 111/59 L 06/05/24 17:19 Pulse Oximetry 97 06/05/24 17:19 Oxygen Delivery Room Air 06/05/24 14:17 Medical Decision Making MDM Narrative Medical decision making narrative: PATIENT REFERRED TO THE ED BECAUSE OF CRITICAL HEMOGLOBIN VITAL SIGNS SHOWING BLOOD PRESSURE 128/43 OTHERWISE WITHIN NORMAL LIMIT PHYSICAL EXAM SHOWING PALE SKIN, RECTAL EXAM IS NEGATIVE FOR BLOOD DIFFERENTIAL DIAGNOSIS INCLUDE GI BLEED, ANEMIA, ELECTROLYTE IMBALANCE, DEHYDRATION BLOOD WORKUP TODAY SHOWED APICAL OPEN OF 7.4 NO OLD RECORDS FOR COMPARISON, HEMATOCRIT 26.3, PLATELET COUNT 130 OTHERWISE WITHIN NORMAL LIMIT DIAGNOSIS ANEMIA ADMIT TO HOSPITALIST, DISCUSSED WITH DR. ALBERT Differential Diagnosis Differential Diagnosis: ABOVE Vital Signs Vital Signs: Vital Signs Temperature 36.9 C 06/05/24 14:17 Pulse Rate 74 06/05/24 14:17 Respiratory Rate 18 06/05/24 14:17 Blood Pressure 128/43 L 06/05/24 14:17 Pulse Oximetry 98 06/05/24 14:17 Oxygen Delivery Room Air 06/05/24 14:17 Temperature 36.9 C 06/05/24 14:17 Pulse Rate 65 06/05/24 17:19 Respiratory Rate 18 06/05/24 17:19 Blood Pressure 111/59 L 06/05/24 17:19 Pulse Oximetry 97 06/05/24 17:19 Oxygen Delivery Room Air 06/05/24 14:17 Lab Data 06/05/24 15:05 06/05/24 15:05 Labs: Lab Results 02/28/25 Range/Units 15:05 WBC 5.2 (4.5-10.0) K/mm3 RBC 3.31 L (4.2-5.4) M/mm3 Hgb 7.4 L (12.0-15.0) g/dL Hct 26.3 L (37.0-47.0) % MCV 79.5 L (80-100) fl MCH 22.4 L (26-34) pg MCHC 28.1 L (32-36) g/dl RDW 21.4 H (11.5-14.5) % Plt Count 130 L (150-375) k/mm3 MPV 11.6 H (7.4-10.4) fl Immature Gran % (Auto) 0.2 (0-0.5) % Neut % (Auto) 70.9 (45.5-73.1) % Lymph % (Auto) 15.0 L (18.3-44.2) % [place] % (Auto) 11.0 H (2.6-8.5) % Eos % (Auto) 2.3 (0-4.4) % Baso % (Auto) 0.6 (0.2-1.2) % Lymph # (Auto) 0.78 L (0.9-3.2) K/mm3 [place] # (Auto) 0.6 (0.1-0.6) K/mm3 Eos # (Auto) 0.1 (0-0.3) K/mm3 Baso # (Auto) 0.0 (0.0-0.1) K/mm3 Abs Immat Gran (auto) 0.01 (0.00-0.031) K/mm3 Absolute Neuts (auto) 3.7 (1.3-6.7) K/mm3 Absolute Nucleated RBC 0.000 (0.0-0.012) K/mm3 Band Neutrophils % Not Reportable Nucleated RBC % 0.0 (0.0-0.2) % Platelet Estimate Decreased (Adequate) % Immature Plt Fraction 7.4 (0.9-11.2) % Hypochromasia 1+ Ovalocytes 1+ Schistocytes None seen PT 14.2 (11.1-14.7) Seconds INR 1.1 APTT 26.1 (22.3-36.8) Seconds Sodium 139 (137-145) mmol/L Potassium 4.1 (3.4-5.0) mmol/L Chloride 103 (98-107) mmol/L Carbon Dioxide 28 (22-30) mmol/L Anion Gap 8 (4-12) mmol/L BUN 14 (7-17) mg/dL Creatinine 0.58 L (0.7-1.0) mg/dL Estim Creat Clear Calc Not Reportable Estimated GFR > 60 (59 - ) Glucose 155 H (65-110) mg/dL Calcium 9.9 (8.4-10.2) mg/dL Total Bilirubin 0.5 (0.2-1.3) mg/dL AST 22 (14-36) U/L ALT 20 (6-35) U/L Alkaline Phosphatase 84 (38-126) U/L Total Protein 7.0 (6.3-8.2) g/dL Albumin 3.9 (3.5-5.1) g/dL Blood Type A Negative Antibody Screen Negative Critical Care Time Critical Care Time Critical Care Time: No Discharge Plan Discharge Clinical Impression: Anemia, Diarrhea Patient Disposition: Still a Patient Condition: Stable Patient Language: Montenegrin Prescriptions: No Action insulin glargine [Lantus U-100 Insulin] 100 unit/mL solution 40 unit subcut .HS atorvastatin 40 mg Tablet 40 mg PO DAILY metformin 500 mg Tablet 500 mg PO BID calcium 500 mg Tablet 500 mg PO DAILY theophylline 300 mg tablet extended release 12 hr 300 mg PO BID famotidine 20 mg Tablet 20 mg PO BID lisinopril 10 mg Tablet 10 mg PO DAILY glimepiride 4 mg Tablet 4 mg PO BID aspirin 81 mg Tablet 81 mg PO DAILY albuterol sulfate [ProAir HFA] 90 mcg/actuation Hfa Aerosol Inhaler 1 inh INHALATION QID PRN (Reason: SOB) mecobalamin (vitamin B12) 5,000 mcg Tablet,Disintegrating 500 mcg PO DAILY Adults Multivitamin 18 mg iron-400 mcg-25 mcg Tablet 1 tablet PO DAILY hydrocodone-acetaminophen 7.5-325 mg tablet 1 tablet PO BID PRN (Reason: Pain) Follow-up/Referrals: Justice,Dain Stanford MD [Primary Care Provider] -
--- NOTE | 2024-06-05 19:39 | ADMGEN ---
This patient, Tyra Justice, was admitted to [facility] Surg Room 323-02. Patient/family oriented to hospital policies and general routines including ID bracelet, bed and alarms, visiting hours, pain management, procedures, bathroom and other care routines, personal items, smoking policy, room service/diet, and visiting hours. Information on how to activate the Rapid Response Team has been discussed. Patient/Family are encouraged to report perceived risks to care and to ask questions if they do not understand what they are told or what they should do.
[2024-06-05 20:18] LABS: Hematocrit 25.1 % (37.0-47.0); Hemoglobin 7.2 g/dL (12.0-15.0)
[2024-06-05] MEDS: SODIUM CHLORIDE 0.9% IV 1,000 ML 100 ML IV CONT (20:48)
--- NOTE | 2024-06-05 22:26 | PM.IMHP ---
H&P: HPI History of Present Illness Date/Time: 06/05/24 22:26 Chief Complaint: 1. Fatigue 2. Malaise 3. Diarrhea Narrative: Tyra Justice is an 88F with a MHx significant for GERD, IDDM, HTN, Dyslipidemia Over the last 4 weeks, she has been experiencing symptoms of malaise and fatigue; these symptoms were aggravated by exertion, alleviated mildly by rest; associated with loose stools which she deems as dark, dyspnea on exertion, increased somnolence and anxiety. She presented to her PCP who on preliminary evaluation found her to be anemic compared to her baseline and was thereby advised to pursue an ED visit; Her last colonoscopy was the year prior as a f/u for previous colonoscopies that uncovered polyps, it was unremarkable. Work-up findings: WBC 5.2; Hb 7.4 >> 7.2; PLT 130 INR 1.1; AST 22; ALT 20; ALP 84 CXR: No acute cardiopulmonary pathology. FOBT: -VE Tyra Justice will be admitted, evaluated and managed for symptomatic anemia Review of Systems Review of Systems: All systems reviewed & are unremarkable except as noted in HPI and below PMFSH Family History Family History Sibling Family history of alcoholism Family history of heart disease in male family member before age 55 Father Family history of lung cancer Family history of heart disease in male family member before age 55 Other Diabetes mellitus Hypertension Social History Social History Smoking packs per day: 4 Smoking cigarettes per day: 80.0 Years smoked: 60 Smoking pack-years: 240.00 Smoking status: Never smoker Alcohol intake: former Substance use: never Do You Feel Safe in your Home?: Yes Lack of Transportation: No Lack of Food: Never True Current Housing: I Have Housing Concerned About Future Housing: No Difficulty Paying Gas/Electric Bills: No Difficulty Paying for Meds: No Currently Unemployed: No Education: High School Diploma/GED Difficulty w/ Childcare or Family Care: No Spiritual care concerns: No Meds Home Medications and Allergies Home Medications ?Medication ?Instructions ?Recorded ?Confirmed ?Type albuterol sulfate 90 mcg/actuation 1 inh inhalation QID PRN SOB 03/23/21 06/05/24 History aerosol inhaler (ProAir HFA) aspirin 81 mg tablet 81 mg PO DAILY 03/23/21 06/05/24 History atorvastatin 40 mg tablet 40 mg PO DAILY 03/23/21 06/05/24 History calcium 500 mg tablet 500 mg PO DAILY 03/23/21 06/05/24 History famotidine 20 mg tablet 20 mg PO BID 03/23/21 06/05/24 History glimepiride 4 mg tablet 4 mg PO BID 03/23/21 06/05/24 History lisinopril 10 mg tablet 10 mg PO DAILY 03/23/21 06/05/24 History metformin 500 mg tablet 500 mg PO BID 03/23/21 06/05/24 History multivit with minerals-iron 18 1 tablet PO DAILY 03/23/21 06/05/24 History mg-folic ac 400 mcg-vit K 25 mcg tablet (Adults Multivitamin) theophylline 300 mg 300 mg PO BID 03/23/21 06/05/24 History tablet,extended release,12 hr insulin glargine 100 unit/mL 40 unit subcut .HS 05/14/24 06/05/24 History subcutaneous solution (Lantus U-100 Insulin) metoprolol succinate 25 mg 25 mg PO DAILY 06/05/24 06/05/24 History tablet,extended release 24 hr Allergies Allergy/AdvReac Type Severity Reaction Status Date / Time empagliflozin (From Allergy Mild unkown Verified 05/14/24 13:34 Jardiance) ioversol Allergy Unknown Unknown Verified 05/14/24 13:27 codeine AdvReac Intermediate NAUSEA/VOMI Verified 05/14/24 13:27 TING Contrast Media Allergy Severe CARDIA/RESP Uncoded 05/14/24 13:27 ARREST Vital Signs Vital Signs - 24 hr 06/05/24 14:17 06/05/24 16:30 06/05/24 17:19 Temperature 98.4 F Pulse Rate 74 64 65 Respiratory Rate 18 20 18 Blood Pressure 128/43 L 129/56 L 111/59 L Pulse Oximetry 98 99 97 Oxygen Delivery Room Air 06/05/24 17:30 06/05/24 18:30 06/05/24 19:21 Temperature Pulse Rate 68 63 67 Respiratory Rate 16 18 16 Blood Pressure 125/63 134/58 L 130/82 Pulse Oximetry 99 98 99 Oxygen Delivery 06/05/24 20:00 06/05/24 22:00 Temperature 98.6 F Pulse Rate 67 67 Respiratory Rate 16 18 Blood Pressure 118/47 L Pulse Oximetry 99 96 Oxygen Delivery Room Air Exam Const: General: comfortable and no acute distress HENMT: Face/Nose/Sinus: Normal nares present Mouth: Yes moist mucous membranes Eyes: General: appearance normal, both eyes and all related structures Pupils: Equal, round and reactive pupils present EOM: EOMs intact bilaterally Other: conjunctival pallor Neck: Neck: supple Thyroid: thyroid normal Resp: Effort & Inspection: normal respiratory effort Auscultation: clear to auscultation bilaterally and lung sounds not diminished Cardio: Rate: regular rate Rhythm: regular rhythm GI: Inspection: distended GI Palp: Yes Soft to palpation Auscultation: normal bowel sounds Skin: Wounds: no wounds Neuro: General: gait normal Motor exam (neuro): 5/5 motor strength present throughout, Normal motor muscle tone present throughout and Abnormal motor strength present Psych: Mental Status: mental status grossly normal Affect: normal affect H&P: Results Labs Labs: Short CBC 06/05/24 06/05/24 Range/Units 15:05 20:11 WBC 5.2 (4.5-10.0) K/mm3 Hgb 7.4 L 7.2 L (12.0-15.0) g/dL Hct 26.3 L 25.1 L (37.0-47.0) % Plt Count 130 L (150-375) k/mm3 BMP 06/05/24 15:05 Sodium 139 Potassium 4.1 Chloride 103 Carbon Dioxide 28 BUN 14 Creatinine 0.58 L Glucose 155 H Calcium 9.9 Liver Function 06/05/24 Range/Units 15:05 Total Bilirubin 0.5 (0.2-1.3) mg/dL AST 22 (14-36) U/L ALT 20 (6-35) U/L Alkaline Phosphatase 84 (38-126) U/L Albumin 3.9 (3.5-5.1) g/dL Assessment and Plan Assessment and plan (1) Symptomatic anemia: Code(s): D64.9 - Anemia, unspecified Status: Acute Plan Acute and principal conditions 1. Symptomatic anemia. Hb 7.3 >> 7.2 Rx: A. PPI, Trend Hb with goal >7 B. GI consulted Chronic and stable conditions 1. GERD. 2. IDDM2. 3. Dyslipidemia. 4. Asthma, mild intermittent. Miscellaneous care. 1. Code status. Full 2. Nutrition. CLD 3. VTE prophylaxis. SCDs; holding pharmacologic VTE in the meantime due to probable GIB Quality VTE Prophylaxis VTE prophylaxis: mechanical ordered and pharmacologic ordered If No VTE Prophylaxis Answer both mechanical and pharmacologic: Reason no pharmacologic proph: medical contraindication active bleeding/bleeding risk Hospitalist MIPS Advance Care Plan I have confirmed that the patient's Advanced Care Plan is present, code status is documented, or surrogate decision maker is listed in patient medical record.: Yes Medication Reconciliation I have utilized all available resources to obtain, update and review the patients current medications (includes all prescriptions, OTC, herbals, cannabis, and nutritional supplements).: Yes The patient is not eligible for med reconciliation; the patient is in a emergent medical situation where delaying treatment would jeopardize the patients health.: Yes
[2024-06-05 23:12] LABS: Lactate Dehydrogenase 137 U/L (120-246)
[2024-06-05 23:13] LABS: Iron 29 ug/dL (37-170)
[2024-06-05] MEDS: PANTOPRAZOLE SODIUM IV 40 MG VIAL IV PUSH (23:17)
[2024-06-05 23:18] LABS: Immature Reticulocyte Fraction 20.7 % (3.0-15.9); Reticulocyte Hemoglobin Conten 22.9 pg (28.2-36.6); Reticulocytes Absolute 0.06 10^6/uL (0.02-0.10)
[2024-06-05 23:22] LABS: Percent Iron Saturation 7 % (20-50)
[2024-06-06] VITALS (10 sets, daily range): BP systolic 117–141; BP diastolic 50–67; PULSE 63–83; RESP 14–18; TEMP 36.4–37.4; O2SAT 94–99
[2024-06-06 00:49] LABS: Hematocrit 23.4 % (37.0-47.0)
[2024-06-06 00:54] LABS: Hemoglobin 6.8 g/dL (12.0-15.0)
[2024-06-06 06:47] LABS: Basophils Percent Auto 0.5 % (0.2-1.2); Eosinophils Absolute Auto 0.1 K/mm3 (0-0.3); Eosinophils Percent Auto 3.1 % (0-4.4); Hematocrit 27.9 % (37.0-47.0); Hemoglobin 8.1 g/dL (12.0-15.0); Immature Granulocyte Absolute 0.01 K/mm3 (0.00-0.031); Immature Granulocyte Percent A 0.2 % (0-0.5); Immature Platelet Fraction Pct 7.3 % (0.9-11.2); Lymphocytes Absolute Auto 1.25 K/mm3 (0.9-3.2); Lymphocytes Percent Auto 29.3 % (18.3-44.2); Mean Corpuscular Volume 79.3 fl (80-100); Monocytes Absolute Auto 0.5 K/mm3 (0.1-0.6); Monocytes Percent Auto 12.7 % (2.6-8.5); Neutrophils Absolute Auto 2.3 K/mm3 (1.3-6.7); Neutrophils Percent Auto 54.2 % (45.5-73.1); Platelet Count Result 139 k/mm3 (150-375); Red Blood Count 3.52 M/mm3 (4.2-5.4); Red Cell Distribution Width 20.6 % (11.5-14.5); White Blood Count 4.3 K/mm3 (4.5-10.0)
[2024-06-06 07:49] LABS: Hypochromasia 2+; Platelet Estimate Slightly Decreased (Adequate)
[2024-06-06 07:50] LABS: Ovalocytes 1+; Schistocytes None Seen
[2024-06-06] MEDS: PANTOPRAZOLE SODIUM IV 40 MG VIAL IV PUSH ×2 (09:02→20:38)
[2024-06-06] MEDS: SODIUM CHLORIDE 0.9% IV 1,000 ML 100 ML IV CONT (09:02)
[2024-06-06] MEDS: THEOPHYLLINE 300 MG ER 12 HR TABLET PO ×2 (09:19→20:38)
[2024-06-06 09:28] LABS: Alanine Aminotransferase 16 U/L (6-35); Albumin Level 3.3 g/dL (3.5-5.1); Alkaline Phosphatase 75 U/L (38-126); Anion Gap 9 mmol/L (4-12); Aspartate Amino Transferase 19 U/L (14-36); Bilirubin,Total 0.9 mg/dL (0.2-1.3); Blood Urea Nitrogen 10 mg/dL (7-17); Calcium 9.3 mg/dL (8.4-10.2); Carbon Dioxide 25 mmol/L (22-30); Chloride 107 mmol/L (98-107); Estimated Glomerular Filt Rate > 60; Glucose 111 mg/dL (65-110); Magnesium 1.7 mg/dL (1.6-2.3); Potassium 3.7 mmol/L (3.4-5.0); Sodium 141 mmol/L (137-145)
--- NOTE | 2024-06-06 10:41 | WPDGICN ---
Assessment and Plan Assessment and plan (1) Symptomatic anemia: Code(s): D64.9 - Anemia, unspecified Status: Acute Assessment and Plan: GUSTABO, microcytosis given history I would like to do EGD and repeat colonoscopy, probably Saturday she had dark stools but normal BUN- less likely upper source (2) Diarrhea: Code(s): R19.7 - Diarrhea, unspecified Status: Acute Assessment and Plan: will assess with colonoscopy (3) Weight loss: Code(s): R63.4 - Abnormal weight loss Status: Acute (4) Dark stools: Code(s): R19.5 - Other fecal abnormalities Status: Acute GI Consult Note Consult date/time: 06/06/24 10:41 Reason for consult: symptomatic anemia, diarrhea HPI: Tyra Justice is a 83 year old female with history of DM, HTN, sister with colon cancer. She says that for almost 4 weeks has been experiencing malaise and fatigue, also intermittent diarrhea with about 10 lb weight loss. Few days ago noted dark stools. PCP noted anemia and advised to come here, hgb 6.8 and given blood transfusion. Last colonoscopy 2021 in record with hemorrhoid and diverticula. BUN/creatinine normal. Review of Systems Constitutional: Constitutional: Reports fatigue Eyes: Eyes: Denies blurry vision ENT: Reports Normal hearing present Cardiovascular: Cardiovascular: Denies chest pain Respiratory: Respiratory: Denies cough Gastrointestinal: Gastrointestinal: Denies abdominal pain and Denies vomiting Genitourinary: Genitourinary: Denies dysuria Musculoskeletal: Musculoskeletal: Denies neck pain Integumentary/Breasts: Skin/Breast: Denies rash Neurologic: Denies Abnormal speech present Psychiatric: Psychiatric: Denies behavioral changes [facility] Past Medical History Medical History (Updated 06/06/24 @ 10:45 by Seng Pollock MD) Dark stools Weight loss Acute anemia Family History Family History Sibling Family history of alcoholism Family history of heart disease in male family member before age 55 Father Family history of lung cancer Family history of heart disease in male family member before age 55 Other Diabetes mellitus Hypertension Social History Social History Smoking packs per day: 4 Smoking cigarettes per day: 80.0 Years smoked: 60 Smoking pack-years: 240.00 Smoking status: Never smoker Alcohol intake: former Substance use: never Do You Feel Safe in your Home?: Yes Lack of Transportation: No Lack of Food: Never True Current Housing: I Have Housing Concerned About Future Housing: No Difficulty Paying Gas/Electric Bills: No Difficulty Paying for Meds: No Currently Unemployed: No Education: High School Diploma/GED Difficulty w/ Childcare or Family Care: No Spiritual care concerns: No Meds Home Medications and Allergies Home Medications ?Medication ?Instructions ?Recorded ?Confirmed ?Type albuterol sulfate 90 mcg/actuation 1 inh inhalation QID PRN SOB 03/23/21 06/05/24 History aerosol inhaler (ProAir HFA) aspirin 81 mg tablet 81 mg PO DAILY 03/23/21 06/05/24 History atorvastatin 40 mg tablet 40 mg PO DAILY 03/23/21 06/05/24 History calcium 500 mg tablet 500 mg PO DAILY 03/23/21 06/05/24 History famotidine 20 mg tablet 20 mg PO BID 03/23/21 06/05/24 History glimepiride 4 mg tablet 4 mg PO BID 03/23/21 06/05/24 History lisinopril 10 mg tablet 10 mg PO DAILY 03/23/21 06/05/24 History metformin 500 mg tablet 500 mg PO BID 03/23/21 06/05/24 History multivit with minerals-iron 18 1 tablet PO DAILY 03/23/21 06/05/24 History mg-folic ac 400 mcg-vit K 25 mcg tablet (Adults Multivitamin) theophylline 300 mg 300 mg PO BID 03/23/21 06/05/24 History tablet,extended release,12 hr insulin glargine 100 unit/mL 40 unit subcut .HS 05/14/24 06/05/24 History subcutaneous solution (Lantus U-100 Insulin) metoprolol succinate 25 mg 25 mg PO DAILY 06/05/24 06/05/24 History tablet,extended release 24 hr Allergies Allergy/AdvReac Type Severity Reaction Status Date / Time empagliflozin (From Allergy Mild unkown Verified 05/14/24 13:34 Jardiance) ioversol Allergy Unknown Unknown Verified 05/14/24 13:27 codeine AdvReac Intermediate NAUSEA/VOMI Verified 05/14/24 13:27 TING Contrast Media Allergy Severe CARDIA/RESP Uncoded 05/14/24 13:27 ARREST Vital Signs Vital Signs - 24 hr 06/05/24 14:17 06/05/24 16:30 06/05/24 17:19 Temperature 98.4 F Pulse Rate 74 64 65 Respiratory Rate 18 20 18 Blood Pressure 128/43 L 129/56 L 111/59 L Pulse Oximetry 98 99 97 Oxygen Delivery Room Air 06/05/24 17:30 06/05/24 18:30 06/05/24 19:21 Temperature Pulse Rate 68 63 67 Respiratory Rate 16 18 16 Blood Pressure 125/63 134/58 L 130/82 Pulse Oximetry 99 98 99 Oxygen Delivery 06/05/24 20:00 06/05/24 22:00 06/06/24 01:56 Temperature 98.6 F 97.7 F Pulse Rate 67 67 66 Respiratory Rate 16 18 14 Blood Pressure 118/47 L 141/50 H Pulse Oximetry 99 96 97 Oxygen Delivery Room Air 06/06/24 02:11 06/06/24 03:11 06/06/24 04:11 Temperature 98.0 F 97.7 F 98.2 F Pulse Rate 63 83 67 Respiratory Rate 16 17 14 Blood Pressure 129/60 139/57 L 131/55 L Pulse Oximetry 99 97 95 Oxygen Delivery 06/06/24 06:00 06/06/24 09:03 Temperature 98.7 F Pulse Rate 68 Respiratory Rate 18 Blood Pressure 140/67 Pulse Oximetry 98 94 Oxygen Delivery Room Air Exam Const: General: comfortable and no acute distress HENMT: Face/Nose/Sinus: Normal nares present Eyes: General: appearance normal, both eyes and all related structures Neck: Neck: supple Resp: Auscultation: clear to auscultation bilaterally Cardio: Rate: regular rate Rhythm: regular rhythm GI: Inspection: non-distended GI Palp: Yes Soft to palpation and No Tenderness to palpation present (GI) Auscultation: normal bowel sounds Skin: General skin exam: no rashes or lesions noted Neuro: Speech: normal speech Motor exam (neuro): 5/5 motor strength present throughout Extrem: General: normal to inspection Psych: Mental Status: mental status grossly normal Results Labs 06/06/24 06:31 06/06/24 08:52 Labs: Short CBC 06/05/24 06/05/24 06/06/24 Range/Units 15:05 20:11 00:44 WBC 5.2 (4.5-10.0) K/mm3 Hgb 7.4 L 7.2 L 6.8 L* (12.0-15.0) g/dL Hct 26.3 L 25.1 L 23.4 L (37.0-47.0) % Plt Count 130 L (150-375) k/mm3 06/06/24 06/06/24 06/06/24 Range/Units 06:31 06:31 06:31 WBC 4.3 L (4.5-10.0) K/mm3 Hgb 8.1 L Cancelled (12.0-15.0) g/dL Hct 27.9 L Cancelled (37.0-47.0) % Plt Count 139 L (150-375) k/mm3 BMP 06/05/24 06/06/24 15:05 08:52 Sodium 139 141 Potassium 4.1 3.7 Chloride 103 107 Carbon Dioxide 28 25 BUN 14 10 Creatinine 0.58 L 0.59 L Glucose 155 H 111 H Calcium 9.9 9.3 Liver Function 06/05/24 06/06/24 Range/Units 15:05 08:52 Total Bilirubin 0.5 0.9 (0.2-1.3) mg/dL AST 22 19 (14-36) U/L ALT 20 16 (6-35) U/L Alkaline Phosphatase 84 75 (38-126) U/L Albumin 3.9 3.3 L (3.5-5.1) g/dL
--- NOTE | 2024-06-06 10:48 | P.PNIM_ITS ---
Progress Note: A&P Assessment and Plan (1) Symptomatic anemia: Code(s): D64.9 - Anemia, unspecified Status: Acute Assessment and Plan: * H&H 6.8/23.4. Patient transfused 1 unit of PRBC's with post H&H 8.1/27.9. * Guaiac negative in ER. * GI consulted, appreciate recommendations. * Plan EGD and repeat Colonoscopy on Saturday. * Transfuse if hgb less than 7. * Trend CBC. (2) Diabetes: Code(s): E11.9 - Type 2 diabetes mellitus without complications Status: Acute Assessment and Plan: * HgbA1C 6.1%. * SSI, Hypoglycemic protocol. * Lantus at 20 units subq qhs. * Monitor blood sugars. (3) Asthma, mild intermittent: Code(s): J45.20 - Mild intermittent asthma, uncomplicated Status: Acute Assessment and Plan: * Albuterol Sulfate 1 puff QID PRN. * Theophylline 300 mg PO BID. * Check Theophylline level. Subjective Date/time seen: 06/06/24 10:48 Interval history: Patient sitting up in bed. Patient denies chest pain, palpitations, headache, dizziness, nausea, or vomiting. Patient reports sputum with cough yellow white. Patient reports that she does not want CPR or to be intubated she wants to be a DNR. Review of Systems Review of Systems: All systems reviewed & are unremarkable except as noted in HPI and below Exam Const: General: comfortable and no acute distress Resp: Effort & Inspection: normal respiratory effort Auscultation: clear to auscultation bilaterally Cardio: Rate: regular rate Rhythm: regular rhythm GI: GI Palp: Yes Soft to palpation Auscultation: normal bowel sounds Neuro: Speech: normal speech Extrem: General: no pedal edema Psych: Mental Status: mental status grossly normal Affect: normal affect Objective Data Vital Signs Vital Signs: Vital Signs - 24 hr 06/05/24 14:17 06/05/24 16:30 06/05/24 17:19 Temperature 98.4 F Pulse Rate 74 64 65 Respiratory Rate 18 20 18 Blood Pressure 128/43 L 129/56 L 111/59 L Pulse Oximetry 98 99 97 Oxygen Delivery Room Air 06/05/24 17:30 06/05/24 18:30 06/05/24 19:21 Temperature Pulse Rate 68 63 67 Respiratory Rate 16 18 16 Blood Pressure 125/63 134/58 L 130/82 Pulse Oximetry 99 98 99 Oxygen Delivery 06/05/24 20:00 06/05/24 22:00 06/06/24 01:56 Temperature 98.6 F 97.7 F Pulse Rate 67 67 66 Respiratory Rate 16 18 14 Blood Pressure 118/47 L 141/50 H Pulse Oximetry 99 96 97 Oxygen Delivery Room Air 06/06/24 02:11 06/06/24 03:11 06/06/24 04:11 Temperature 98.0 F 97.7 F 98.2 F Pulse Rate 63 83 67 Respiratory Rate 16 17 14 Blood Pressure 129/60 139/57 L 131/55 L Pulse Oximetry 99 97 95 Oxygen Delivery 06/06/24 06:00 06/06/24 08:00 06/06/24 09:03 Temperature 98.7 F Pulse Rate 68 68 Respiratory Rate 18 18 Blood Pressure 140/67 Pulse Oximetry 98 94 94 Oxygen Delivery Room Air Room Air Intake/Output Intake/Output: Intake & Output 06/03/24 06/04/24 06/05/24 06/06/24 23:59 23:59 23:59 23:59 Intake Total 1530 Balance 1530 Meds/Results Medications: Active Medications Generic Name Dose Route Start Last Admin Trade Name Freq PRN Reason Stop Dose Admin Acetaminophen 650 mg 06/05/24 18:39 Acetaminophen 325 Mg Tablet PO Q4H PRN Mild Pain (1-3) or Fever Albuterol 1 puff 06/06/24 08:41 Albuterol Sulfate (*Sp) Aerosol 1 Puff INHALATION QID PRN Shortness Of Breath Albuterol/Ipratropium 3 ml 06/05/24 22:23 Ipratropium 0.5 Mg/Albuterol Sulfate 2.5 Mg Ampul.Neb 3 Ml INHALATION Q4HRT PRN shortness of breath/Wheezing Atorvastatin Calcium 40 mg 06/06/24 09:00 Atorvastatin 40 Mg Tablet PO DAILY TAMIR Calcium Carbonate 500 mg 06/06/24 09:00 Calcium Carbonate (Oscal) 500 Mg Tablet PO 07/06/24 08:59 DAILY TAMIR Dextrose 12.5 gm 06/06/24 08:44 Dextrose 50% 25 Gm/50 Ml Syringe IV PUSH PRN PRN Hypoglycemia Protocol Glucagon 1 mg 06/06/24 08:44 Glucagon For Inj 1 Mg Vial IM PRN PRN Hypoglycemia Protocol Glucose 15 gm 06/06/24 08:44 Glucose Oral Gel 15 Gm Of Glucse In 37.5 Gm Tube PO PRN PRN Hypoglycemia Protocol Guaifenesin/Dextromethorphan 10 ml 06/05/24 22:23 Guaifenesin/Dextromethorphan 10 Ml Udc PO Q4H PRN Cough Sodium Chloride 1,000 mls @ 25 mls/hr 06/05/24 18:07 06/05/24 23:12 Normal Saline Iv IV CONT 06/06/24 18:06 Not Given .Q24H STA Sodium Chloride 1,000 mls @ 100 mls/hr 06/05/24 18:40 06/06/24 09:02 Normal Saline Iv IV CONT 100 mls/hr .Q10H TAMIR Administration Dextrose 1,000 mls @ 100 mls/hr 06/06/24 08:44 Dextrose 5% 1,000 Ml IVPB PRN PRN Hypoglycemia Protocol Insulin Aspart 3 - 6 units 06/06/24 12:00 Insulin Aspart (*Bkc) 100 Units/Ml SUB-Q TIDWM [facility] Protocol Insulin Aspart 1 - 3 units 06/06/24 21:00 Insulin Aspart (*Bkc) 100 Units/Ml SUB-Q HS TAMIR Protocol Lisinopril 10 mg 06/06/24 09:00 Lisinopril 10 Mg Tablet PO DAILY TAMIR Melatonin 5 mg 06/05/24 22:23 Melatonin 5 Mg Tablet PO HS PRN Insomnia Metoprolol Succinate 25 mg 06/06/24 09:00 Metoprolol Succinate Ext Rel 25 Mg Tabcr PO DAILY TAMIR Multivitamins/Minerals 1 tab 06/06/24 09:00 Multivitamins /C Lutein (Centrum Silver) Tablet *Bkc PO DAILY TAMIR Pantoprazole Sodium 40 mg 06/05/24 22:25 06/06/24 09:02 Pantoprazole Sodium Iv 40 Mg Vial IV PUSH 06/12/24 22:24 40 mg Q12HR TAMIR Administration Polyethylene Glycol 17 gm 06/05/24 22:23 Polyethylene Glycol 3350 17 Gm Powd.Pack PO QAM PRN Constipation Prochlorperazine Edisylate 10 mg 06/05/24 22:23 Prochlorperazine Edisylate 10 Mg/2 Ml Vial IV PUSH Q6H PRN Nausea And Vomiting Theophylline 300 mg 06/06/24 09:00 Theophylline 300 Mg Er 12 Hr Tablet PO Q12HR [facility] Radiology Results: ITS Impressions Chest X-Ray 06/05/24 18:26 IMPRESSION: No acute cardiopulmonary pathology. Labs Labs: Laboratory Results - last 24 hr 06/05/24 06/05/24 06/05/24 15:05 20:07 20:11 WBC 5.2 RBC 3.31 L Hgb 7.4 L 7.2 L Hct 26.3 L 25.1 L MCV 79.5 L MCH 22.4 L MCHC 28.1 L RDW 21.4 H Plt Count 130 L MPV 11.6 H Immature Gran % (Auto) 0.2 Neut % (Auto) 70.9 Lymph % (Auto) 15.0 L [place] % (Auto) 11.0 H Eos % (Auto) 2.3 Baso % (Auto) 0.6 Lymph # (Auto) 0.78 L [place] # (Auto) 0.6 Eos # (Auto) 0.1 Baso # (Auto) 0.0 Abs Immat Gran (auto) 0.01 Absolute Neuts (auto) 3.7 Absolute Nucleated RBC 0.000 Band Neutrophils % Not Reportable Nucleated RBC % 0.0 Platelet Estimate Decreased % Immature Plt Fraction 7.4 Hypochromasia 1+ Ovalocytes 1+ Schistocytes None seen Absolute Retic 0.06 Percent Retic 1.90 Immature Retic Fraction 20.7 H Retic Hgb Content 22.9 L PT 14.2 INR 1.1 APTT 26.1 Sodium 139 Potassium 4.1 Chloride 103 Carbon Dioxide 28 Anion Gap 8 BUN 14 Creatinine 0.58 L Estim Creat Clear Calc Not Reportable Estimated GFR > 60 Glucose 155 H Calcium 9.9 Magnesium Iron 29 L TIBC 407 % Saturation 7 L Ferritin 4.40 L Total Bilirubin 0.5 AST 22 ALT 20 Alkaline Phosphatase 84 Lactate Dehydrogenase 137 Total Protein 7.0 Albumin 3.9 Blood Type A Negative Antibody Screen Negative Crossmatch See Detail 06/06/24 06/06/24 06/06/24 00:44 06:31 06:31 WBC 4.3 L RBC 3.52 L Hgb 6.8 L* 8.1 L Cancelled Hct 23.4 L 27.9 L MCV MCH MCHC RDW Plt Count MPV Immature Gran % (Auto) Neut % (Auto) Lymph % (Auto) [place] % (Auto) Eos % (Auto) Baso % (Auto) Lymph # (Auto) [place] # (Auto) Eos # (Auto) Baso # (Auto) Abs Immat Gran (auto) Absolute Neuts (auto) Absolute Nucleated RBC Band Neutrophils % Nucleated RBC % Platelet Estimate % Immature Plt Fraction Hypochromasia Ovalocytes Schistocytes Absolute Retic Percent Retic Immature Retic Fraction Retic Hgb Content PT INR APTT Sodium Potassium Chloride Carbon Dioxide Anion Gap BUN Creatinine Estim Creat Clear Calc Estimated GFR Glucose Calcium Magnesium Iron TIBC % Saturation Ferritin Total Bilirubin AST ALT Alkaline Phosphatase Lactate Dehydrogenase Total Protein Albumin Blood Type Antibody Screen Crossmatch 06/06/24 06/06/24 06:31 08:52 WBC RBC Hgb Hct Cancelled MCV 79.3 L MCH 23.0 L MCHC 29.0 L RDW 20.6 H Plt Count 139 L MPV 11.0 H Immature Gran % (Auto) 0.2 Neut % (Auto) 54.2 Lymph % (Auto) 29.3 [place] % (Auto) 12.7 H Eos % (Auto) 3.1 Baso % (Auto) 0.5 Lymph # (Auto) 1.25 [place] # (Auto) 0.5 Eos # (Auto) 0.1 Baso # (Auto) 0.0 Abs Immat Gran (auto) 0.01 Absolute Neuts (auto) 2.3 Absolute Nucleated RBC 0.000 Band Neutrophils % Not Reportable Nucleated RBC % 0.0 Platelet Estimate Slightly decreased % Immature Plt Fraction 7.3 Hypochromasia 2+ Ovalocytes 1+ Schistocytes None seen Absolute Retic Percent Retic Immature Retic Fraction Retic Hgb Content PT INR APTT Sodium 141 Potassium 3.7 Chloride 107 Carbon Dioxide 25 Anion Gap 9 BUN 10 Creatinine 0.59 L Estim Creat Clear Calc Not Reportable Estimated GFR > 60 Glucose 111 H Calcium 9.3 Magnesium 1.7 Iron TIBC % Saturation Ferritin Total Bilirubin 0.9 AST 19 ALT 16 Alkaline Phosphatase 75 Lactate Dehydrogenase Total Protein 6.0 L Albumin 3.3 L Blood Type Antibody Screen Crossmatch Quality VTE Prophylaxis VTE prophylaxis: mechanical ordered
[2024-06-06 11:25] LABS: Hemoglobin A1C 6.1 % (<5.7)
[2024-06-06] MEDS: lisinopriL 10 MG TABLET PO (12:31)
[2024-06-06] MEDS: CALCIUM CARBONATE (OSCAL) 500 MG TABLET PO (12:32)
[2024-06-06] MEDS: MULTIVITAMINS /C LUTEIN (CENTRUM SILVER) TABLET *BKC 1 TAB PO (12:32)
[2024-06-06] MEDS: METOPROLOL SUCCINATE EXT REL 25 MG TABCR PO (12:32)
[2024-06-06] MEDS: ATORVASTATIN 40 MG TABLET PO (12:32)
[2024-06-06 12:43] LABS: Hematocrit 27.8 % (37.0-47.0); Hemoglobin 8.3 g/dL (12.0-15.0)
[2024-06-06 16:27] LABS: Glucose Point of Care 200 mg/dl (65-105)
[2024-06-06] MEDS: INSULIN GLARGINE (*BKC) 100 UNITS/ML 20 UNITS SUB-Q (20:38)
[2024-06-06] MEDS: INSULIN ASPART (*BKC) 100 UNITS/ML SUB-Q (20:40)
[2024-06-06 21:13] LABS: Glucose Point of Care 219 mg/dl (65-105)
[2024-06-07] MEDS: SODIUM CHLORIDE 0.9% IV 1,000 ML 100 ML IV CONT (02:51)
[2024-06-07 05:52] VITALS: BP 119/51; PULSE 53; RESP 18; TEMP 36.1; O2SAT 98
[2024-06-07 07:07] LABS: Basophils Percent Auto 0.7 % (0.2-1.2); Eosinophils Absolute Auto 0.2 K/mm3 (0-0.3); Eosinophils Percent Auto 3.9 % (0-4.4); Hematocrit 27.9 % (37.0-47.0); Immature Granulocyte Absolute 0.01 K/mm3 (0.00-0.031); Immature Granulocyte Percent A 0.2 % (0-0.5); Immature Platelet Fraction Pct 8.4 % (0.9-11.2); Lymphocytes Absolute Auto 1.14 K/mm3 (0.9-3.2); Lymphocytes Percent Auto 28.1 % (18.3-44.2); Mean Corpuscular HGB Conc 28.7 g/dl (32-36); Mean Corpuscular Hemoglobin 23.6 pg (26-34); Mean Corpuscular Volume 82.3 fl (80-100); Mean Platelet Volume 10.8 fl (7.4-10.4); Monocytes Absolute Auto 0.6 K/mm3 (0.1-0.6); Monocytes Percent Auto 13.8 % (2.6-8.5); Neutrophils Absolute Auto 2.2 K/mm3 (1.3-6.7); Neutrophils Percent Auto 53.3 % (45.5-73.1); Platelet Count Result 129 k/mm3 (150-375); Red Blood Count 3.39 M/mm3 (4.2-5.4); Red Cell Distribution Width 20.6 % (11.5-14.5); White Blood Count 4.1 K/mm3 (4.5-10.0)
[2024-06-07 07:12] LABS: Alanine Aminotransferase 16 U/L (6-35); Albumin Level 3.2 g/dL (3.5-5.1); Alkaline Phosphatase 70 U/L (38-126); Anion Gap 9 mmol/L (4-12); Aspartate Amino Transferase 19 U/L (14-36); Bilirubin,Total 0.7 mg/dL (0.2-1.3); Blood Urea Nitrogen 9 mg/dL (7-17); Calcium 8.9 mg/dL (8.4-10.2); Carbon Dioxide 23 mmol/L (22-30); Chloride 107 mmol/L (98-107); Estimated Glomerular Filt Rate > 60; Glucose 92 mg/dL (65-110); Magnesium 1.7 mg/dL (1.6-2.3); Potassium 3.5 mmol/L (3.4-5.0); Sodium 139 mmol/L (137-145)
[2024-06-07 08:00] VITALS: PULSE 53; RESP 18; O2SAT 98
[2024-06-07 08:29] LABS: Glucose Point of Care 94 mg/dl (65-105)
[2024-06-07 08:49] LABS: Anisocytosis 2+; Burr Cells 1+; Hypochromasia 1+; Macrocytosis 1+ (NORMAL); Platelet Estimate Decreased (Adequate)
[2024-06-07 08:50] LABS: Ovalocytes 1+; Schistocytes None Seen
[2024-06-07] MEDS: PANTOPRAZOLE SODIUM IV 40 MG VIAL IV PUSH ×2 (09:13→21:43)
--- NOTE | 2024-06-07 11:07 | P.PNGI_ITS ---
Progress Note: A&P Assessment and Plan (1) Symptomatic anemia: Code(s): D64.9 - Anemia, unspecified Status: Acute Assessment and Plan: agree to have egd and colonoscopy tomorrow to assess if gi source of anemia (2) Weight loss: Code(s): R63.4 - Abnormal weight loss Status: Acute (3) Diarrhea: Code(s): R19.7 - Diarrhea, unspecified Status: Acute Assessment and Plan: will also do colonoscopy, consider random colon biopsies (4) Diabetes: Code(s): E11.9 - Type 2 diabetes mellitus without complications Status: Acute Subjective Date/time seen: 06/07/24 11:07 Interval history: no new issues Review of Systems Review of Systems: All systems reviewed & are unremarkable except as noted in HPI and below Exam Const: General: comfortable and no acute distress HENMT: Face/Nose/Sinus: Normal nares present Eyes: General: appearance normal, both eyes and all related structures Neck: Neck: supple Resp: Auscultation: clear to auscultation bilaterally Cardio: Rate: regular rate Rhythm: regular rhythm GI: Inspection: non-distended GI Palp: Yes Soft to palpation and No Tenderness to palpation present (GI) Auscultation: normal bowel sounds Skin: General skin exam: no rashes or lesions noted Neuro: Speech: normal speech Motor exam (neuro): 5/5 motor strength present throughout Extrem: General: normal to inspection Psych: Mental Status: mental status grossly normal Objective Data Vital Signs Vital Signs: Vital Signs - 24 hr 06/06/24 12:32 06/06/24 14:00 06/06/24 20:38 Temperature 99.4 F Pulse Rate 68 70 Respiratory Rate 16 Blood Pressure 121/55 L Pulse Oximetry 97 Oxygen Delivery Room Air 06/06/24 21:28 06/07/24 05:52 Temperature 97.6 F 97 F L Pulse Rate 64 53 L Respiratory Rate 18 18 Blood Pressure 117/55 L 119/51 L Pulse Oximetry 94 98 Oxygen Delivery Intake/Output Intake/Output: Intake & Output 06/04/24 06/05/24 06/06/24 06/07/24 23:59 23:59 23:59 23:59 Intake Total 1890 1220 Balance 1890 1220 Meds/Results Medications: Active Medications Generic Name Dose Route Start Last Admin Trade Name Freq PRN Reason Stop Dose Admin Acetaminophen 650 mg 06/05/24 18:39 Acetaminophen 325 Mg Tablet PO Q4H PRN Mild Pain (1-3) or Fever Albuterol 1 puff 06/06/24 08:41 Albuterol Sulfate (*Sp) Aerosol 1 Puff INHALATION QID PRN Shortness Of Breath Albuterol/Ipratropium 3 ml 06/05/24 22:23 Ipratropium 0.5 Mg/Albuterol Sulfate 2.5 Mg Ampul.Neb 3 Ml INHALATION Q4HRT PRN shortness of breath/Wheezing Atorvastatin Calcium 40 mg 06/06/24 09:00 06/06/24 12:32 Atorvastatin 40 Mg Tablet PO 40 mg DAILY TAMIR Administration Calcium Carbonate 500 mg 06/06/24 09:00 06/06/24 12:32 Calcium Carbonate (Oscal) 500 Mg Tablet PO 07/06/24 08:59 500 mg DAILY TAMIR Administration Dextrose 12.5 gm 06/06/24 08:44 Dextrose 50% 25 Gm/50 Ml Syringe IV PUSH PRN PRN Hypoglycemia Protocol Glucagon 1 mg 06/06/24 08:44 Glucagon For Inj 1 Mg Vial IM PRN PRN Hypoglycemia Protocol Glucose 15 gm 06/06/24 08:44 Glucose Oral Gel 15 Gm Of Glucse In 37.5 Gm Tube PO PRN PRN Hypoglycemia Protocol Guaifenesin/Dextromethorphan 10 ml 06/05/24 22:23 Guaifenesin/Dextromethorphan 10 Ml Udc PO Q4H PRN Cough Sodium Chloride 1,000 mls @ 100 mls/hr 06/05/24 18:40 06/07/24 02:51 Normal Saline Iv IV CONT 100 mls/hr .Q10H TAMIR Administration Dextrose 1,000 mls @ 100 mls/hr 06/06/24 08:44 Dextrose 5% 1,000 Ml IVPB PRN PRN Hypoglycemia Protocol Insulin Aspart 3 - 6 units 06/06/24 12:00 06/06/24 18:20 Insulin Aspart (*Bkc) 100 Units/Ml SUB-Q Not Given TIDWM TAMIR Protocol Insulin Aspart 1 - 3 units 06/06/24 21:00 06/06/24 20:40 Insulin Aspart (*Bkc) 100 Units/Ml SUB-Q 1 units HS TAMIR Administration Protocol Insulin Glargine 20 units 06/06/24 21:00 06/06/24 20:38 Insulin Glargine (*Bkc) 100 Units/Ml SUB-Q 20 units HS TAMIR Administration Lisinopril 10 mg 06/06/24 09:00 06/06/24 12:31 Lisinopril 10 Mg Tablet PO 10 mg DAILY TAMIR Administration Melatonin 5 mg 06/05/24 22:23 Melatonin 5 Mg Tablet PO HS PRN Insomnia Metoprolol Succinate 25 mg 06/06/24 09:00 06/06/24 12:32 Metoprolol Succinate Ext Rel 25 Mg Tabcr PO 25 mg DAILY TAMIR Administration Multivitamins/Minerals 1 tab 06/06/24 09:00 06/06/24 12:32 Multivitamins /C Lutein (Centrum Silver) Tablet *Bkc PO 1 tab DAILY TAMIR Administration Pantoprazole Sodium 40 mg 06/05/24 22:25 06/06/24 20:38 Pantoprazole Sodium Iv 40 Mg Vial IV PUSH 06/12/24 22:24 40 mg Q12HR TAMIR Administration Polyethylene Glycol 17 gm 06/05/24 22:23 Polyethylene Glycol 3350 17 Gm Powd.Pack PO QAM PRN Constipation Prochlorperazine Edisylate 10 mg 06/05/24 22:23 Prochlorperazine Edisylate 10 Mg/2 Ml Vial IV PUSH Q6H PRN Nausea And Vomiting Theophylline 300 mg 06/06/24 09:00 06/06/24 20:38 Theophylline 300 Mg Er 12 Hr Tablet PO 300 mg Q12HR TAMIR Administration Radiology Results: ITS Impressions Chest X-Ray 06/05/24 18:26 IMPRESSION: No acute cardiopulmonary pathology. Labs Labs: Laboratory Results - last 24 hr 06/06/24 06/06/24 06/06/24 08:52 12:29 16:24 WBC RBC Hgb 8.3 L Hct 27.8 L MCV MCH MCHC RDW Plt Count MPV Immature Gran % (Auto) Neut % (Auto) Lymph % (Auto) [place] % (Auto) Eos % (Auto) Baso % (Auto) Lymph # (Auto) [place] # (Auto) Eos # (Auto) Baso # (Auto) Abs Immat Gran (auto) Absolute Neuts (auto) Absolute Nucleated RBC Band Neutrophils % Nucleated RBC % Platelet Estimate % Immature Plt Fraction Hypochromasia Anisocytosis Macrocytosis Ovalocytes [place] Cells Schistocytes Sodium Potassium Chloride Carbon Dioxide Anion Gap BUN Creatinine Estim Creat Clear Calc Estimated GFR Glucose POC Capillary Glucose 200 H Hemoglobin A1c 6.1 H Calcium Magnesium Total Bilirubin AST ALT Alkaline Phosphatase Total Protein Albumin 06/06/24 06/07/24 06/07/24 20:35 06:34 08:25 WBC 4.1 L RBC 3.39 L Hgb 8.0 L Hct 27.9 L MCV 82.3 MCH 23.6 L MCHC 28.7 L RDW 20.6 H Plt Count 129 L MPV 10.8 H Immature Gran % (Auto) 0.2 Neut % (Auto) 53.3 Lymph % (Auto) 28.1 [place] % (Auto) 13.8 H Eos % (Auto) 3.9 Baso % (Auto) 0.7 Lymph # (Auto) 1.14 [place] # (Auto) 0.6 Eos # (Auto) 0.2 Baso # (Auto) 0.0 Abs Immat Gran (auto) 0.01 Absolute Neuts (auto) 2.2 Absolute Nucleated RBC 0.000 Band Neutrophils % Not Reportable Nucleated RBC % 0.0 Platelet Estimate Decreased % Immature Plt Fraction 8.4 Hypochromasia 1+ Anisocytosis 2+ Macrocytosis 1+ Ovalocytes 1+ [place] Cells 1+ Schistocytes None seen Sodium 139 Potassium 3.5 Chloride 107 Carbon Dioxide 23 Anion Gap 9 BUN 9 Creatinine 0.57 L Estim Creat Clear Calc Not Reportable Estimated GFR > 60 Glucose 92 POC Capillary Glucose 219 H 94 Hemoglobin A1c Calcium 8.9 Magnesium 1.7 Total Bilirubin 0.7 AST 19 ALT 16 Alkaline Phosphatase 70 Total Protein 6.0 L Albumin 3.2 L
--- NOTE | 2024-06-07 11:43 | P.PNIM_ITS ---
Progress Note: A&P Assessment and Plan (1) Symptomatic anemia: Code(s): D64.9 - Anemia, unspecified Status: Acute Assessment and Plan: * H&H 6.8/23.4. Patient transfused 1 unit of PRBC's on 06/06 with post H&H 8.1 /27.9. Today's H&H was 8.0/27.9. * Guaiac negative in ER. * GI consulted, appreciate recommendations. * Transfuse if hgb less than 7. * Trend CBC. * NPO after midnight for Colonoscopy and EGD tomorrow. (2) Diabetes: Code(s): E11.9 - Type 2 diabetes mellitus without complications Status: Acute Assessment and Plan: * HgbA1C 6.1%. * SSI, Hypoglycemic protocol. * Lantus at 20 units subq qhs. * Monitor blood sugars. (3) Asthma, mild intermittent: Code(s): J45.20 - Mild intermittent asthma, uncomplicated Status: Acute Assessment and Plan: * Albuterol Sulfate 1 puff QID PRN. * Theophylline 300 mg PO BID. * Check Theophylline level. Subjective Date/time seen: 06/07/24 11:43 Interval history: Patient reports an episode of brown diarrhea today. Patient denies chest pain, palpitations, headache, dizziness, nausea, or vomiting. Patient reports coughing up thick white to yellowish drainage. Patient reports feeling a little fatigued. Review of Systems Review of Systems: All systems reviewed & are unremarkable except as noted in HPI and below Exam Const: General: comfortable and no acute distress Resp: Effort & Inspection: normal respiratory effort Auscultation: clear to auscultation bilaterally Cardio: Rate: regular rate Rhythm: regular rhythm GI: GI Palp: Yes Soft to palpation Auscultation: normal bowel sounds Neuro: Speech: normal speech Extrem: General: no pedal edema Psych: Mental Status: mental status grossly normal Affect: normal affect Objective Data Vital Signs Vital Signs: Vital Signs - 24 hr 06/06/24 12:32 06/06/24 14:00 06/06/24 20:38 Temperature 99.4 F Pulse Rate 68 70 Respiratory Rate 16 Blood Pressure 121/55 L Pulse Oximetry 97 Oxygen Delivery Room Air 06/06/24 21:28 06/07/24 05:52 06/07/24 08:00 Temperature 97.6 F 97 F L Pulse Rate 64 53 L 53 L Respiratory Rate 18 18 18 Blood Pressure 117/55 L 119/51 L Pulse Oximetry 94 98 98 Oxygen Delivery Room Air Intake/Output Intake/Output: Intake & Output 06/04/24 06/05/24 06/06/24 06/07/24 23:59 23:59 23:59 23:59 Intake Total 1890 1220 Balance 1890 1220 Meds/Results Medications: Active Medications Generic Name Dose Route Start Last Admin Trade Name Freq PRN Reason Stop Dose Admin Acetaminophen 650 mg 06/05/24 18:39 Acetaminophen 325 Mg Tablet PO Q4H PRN Mild Pain (1-3) or Fever Albuterol 1 puff 06/06/24 08:41 Albuterol Sulfate (*Sp) Aerosol 1 Puff INHALATION QID PRN Shortness Of Breath Albuterol/Ipratropium 3 ml 06/05/24 22:23 Ipratropium 0.5 Mg/Albuterol Sulfate 2.5 Mg Ampul.Neb 3 Ml INHALATION Q4HRT PRN shortness of breath/Wheezing Atorvastatin Calcium 40 mg 06/06/24 09:00 06/06/24 12:32 Atorvastatin 40 Mg Tablet PO 40 mg DAILY TAMIR Administration Bisacodyl 20 mg 06/07/24 17:00 Bisacodyl 5 Mg Tablet Ec PO 06/07/24 17:01 ONCE ONE Calcium Carbonate 500 mg 06/06/24 09:00 06/06/24 12:32 Calcium Carbonate (Oscal) 500 Mg Tablet PO 07/06/24 08:59 500 mg DAILY TAMIR Administration Dextrose 12.5 gm 06/06/24 08:44 Dextrose 50% 25 Gm/50 Ml Syringe IV PUSH PRN PRN Hypoglycemia Protocol Glucagon 1 mg 06/06/24 08:44 Glucagon For Inj 1 Mg Vial IM PRN PRN Hypoglycemia Protocol Glucose 15 gm 06/06/24 08:44 Glucose Oral Gel 15 Gm Of Glucse In 37.5 Gm Tube PO PRN PRN Hypoglycemia Protocol Guaifenesin/Dextromethorphan 10 ml 06/05/24 22:23 Guaifenesin/Dextromethorphan 10 Ml Udc PO Q4H PRN Cough Sodium Chloride 1,000 mls @ 100 mls/hr 06/05/24 18:40 06/07/24 02:51 Normal Saline Iv IV CONT 100 mls/hr .Q10H TAMIR Administration Dextrose 1,000 mls @ 100 mls/hr 06/06/24 08:44 Dextrose 5% 1,000 Ml IVPB PRN PRN Hypoglycemia Protocol Insulin Aspart 3 - 6 units 06/06/24 12:00 06/06/24 18:20 Insulin Aspart (*Bkc) 100 Units/Ml SUB-Q Not Given TIDWM TAMIR Protocol Insulin Aspart 1 - 3 units 06/06/24 21:00 06/06/24 20:40 Insulin Aspart (*Bkc) 100 Units/Ml SUB-Q 1 units HS TAMIR Administration Protocol Insulin Glargine 20 units 06/06/24 21:00 06/06/24 20:38 Insulin Glargine (*Bkc) 100 Units/Ml SUB-Q 20 units HS TAMIR Administration Lisinopril 10 mg 06/06/24 09:00 06/06/24 12:31 Lisinopril 10 Mg Tablet PO 10 mg DAILY TAMIR Administration Magnesium Citrate 300 ml 06/08/24 01:00 Magnesium Citrate 300 Ml Btl PO 06/08/24 01:01 ONCE ONE Melatonin 5 mg 06/05/24 22:23 Melatonin 5 Mg Tablet PO HS PRN Insomnia Metoprolol Succinate 25 mg 06/06/24 09:00 06/06/24 12:32 Metoprolol Succinate Ext Rel 25 Mg Tabcr PO 25 mg DAILY TAMIR Administration Multivitamins/Minerals 1 tab 06/06/24 09:00 06/06/24 12:32 Multivitamins /C Lutein (Centrum Silver) Tablet *Bkc PO 1 tab DAILY TAMIR Administration Pantoprazole Sodium 40 mg 06/05/24 22:25 06/06/24 20:38 Pantoprazole Sodium Iv 40 Mg Vial IV PUSH 06/12/24 22:24 40 mg Q12HR TAMIR Administration Polyethylene Glycol 17 gm 06/05/24 22:23 Polyethylene Glycol 3350 17 Gm Powd.Pack PO QAM PRN Constipation Polyethylene Glycol 238 gm 06/07/24 17:00 Polyethylene Glycol 3350 238 Gm Bottle PO 06/07/24 17:01 ONCE ONE Prochlorperazine Edisylate 10 mg 06/05/24 22:23 Prochlorperazine Edisylate 10 Mg/2 Ml Vial IV PUSH Q6H PRN Nausea And Vomiting Theophylline 300 mg 06/06/24 09:00 06/06/24 20:38 Theophylline 300 Mg Er 12 Hr Tablet PO 300 mg Q12HR TAMIR Administration Radiology Results: ITS Impressions Chest X-Ray 06/05/24 18:26 IMPRESSION: No acute cardiopulmonary pathology. Labs Labs: Laboratory Results - last 24 hr 06/06/24 06/06/24 06/06/24 12:29 16:24 20:35 WBC RBC Hgb 8.3 L Hct 27.8 L MCV MCH MCHC RDW Plt Count MPV Immature Gran % (Auto) Neut % (Auto) Lymph % (Auto) [place] % (Auto) Eos % (Auto) Baso % (Auto) Lymph # (Auto) [place] # (Auto) Eos # (Auto) Baso # (Auto) Abs Immat Gran (auto) Absolute Neuts (auto) Absolute Nucleated RBC Band Neutrophils % Nucleated RBC % Platelet Estimate % Immature Plt Fraction Hypochromasia Anisocytosis Macrocytosis Ovalocytes [place] Cells Schistocytes Sodium Potassium Chloride Carbon Dioxide Anion Gap BUN Creatinine Estim Creat Clear Calc Estimated GFR Glucose POC Capillary Glucose 200 H 219 H Calcium Magnesium Total Bilirubin AST ALT Alkaline Phosphatase Total Protein Albumin 06/07/24 06/07/24 06:34 08:25 WBC 4.1 L RBC 3.39 L Hgb 8.0 L Hct 27.9 L MCV 82.3 MCH 23.6 L MCHC 28.7 L RDW 20.6 H Plt Count 129 L MPV 10.8 H Immature Gran % (Auto) 0.2 Neut % (Auto) 53.3 Lymph % (Auto) 28.1 [place] % (Auto) 13.8 H Eos % (Auto) 3.9 Baso % (Auto) 0.7 Lymph # (Auto) 1.14 [place] # (Auto) 0.6 Eos # (Auto) 0.2 Baso # (Auto) 0.0 Abs Immat Gran (auto) 0.01 Absolute Neuts (auto) 2.2 Absolute Nucleated RBC 0.000 Band Neutrophils % Not Reportable Nucleated RBC % 0.0 Platelet Estimate Decreased % Immature Plt Fraction 8.4 Hypochromasia 1+ Anisocytosis 2+ Macrocytosis 1+ Ovalocytes 1+ [place] Cells 1+ Schistocytes None seen Sodium 139 Potassium 3.5 Chloride 107 Carbon Dioxide 23 Anion Gap 9 BUN 9 Creatinine 0.57 L Estim Creat Clear Calc Not Reportable Estimated GFR > 60 Glucose 92 POC Capillary Glucose 94 Calcium 8.9 Magnesium 1.7 Total Bilirubin 0.7 AST 19 ALT 16 Alkaline Phosphatase 70 Total Protein 6.0 L Albumin 3.2 L Quality VTE Prophylaxis VTE prophylaxis: mechanical ordered
[2024-06-07 11:54] LABS: Glucose Point of Care 142 mg/dl (65-105)
[2024-06-07 14:00] VITALS: BP 121/45; PULSE 61; RESP 16; TEMP 36.8; O2SAT 99
[2024-06-07 16:12] LABS: Glucose Point of Care 177 mg/dl (65-105)
[2024-06-07] MEDS: METOPROLOL SUCCINATE EXT REL 25 MG TABCR PO (16:12)
[2024-06-07] MEDS: THEOPHYLLINE 300 MG ER 12 HR TABLET PO ×2 (16:12→21:43)
[2024-06-07] MEDS: CALCIUM CARBONATE (OSCAL) 500 MG TABLET PO (16:12)
[2024-06-07] MEDS: ATORVASTATIN 40 MG TABLET PO (16:12)
[2024-06-07] MEDS: MULTIVITAMINS /C LUTEIN (CENTRUM SILVER) TABLET *BKC 1 TAB PO (16:13)
[2024-06-07] MEDS: lisinopriL 10 MG TABLET PO (16:13)
[2024-06-07] MEDS: polyethylene glycoL 3350 238 GM BOTTLE PO (16:44)
[2024-06-07] MEDS: BISACODYL 5 MG TABLET EC 20 MG PO (16:45)
[2024-06-07 21:40] LABS: Glucose Point of Care 186 mg/dl (65-105)
[2024-06-07 22:00] VITALS: BP 137/91; PULSE 81; RESP 18; TEMP 36.4; O2SAT 94
[2024-06-08] VITALS (8 sets, daily range): BP systolic 89–133; BP diastolic 34–88; PULSE 60–93; RESP 16–20; TEMP 36.6–36.9; O2SAT 95–100
[2024-06-08] MEDS: MAGNESIUM CITRATE 300 ML BTL PO (00:29)
[2024-06-08 06:57] LABS: Basophils Percent Auto 0.7 % (0.2-1.2); Eosinophils Absolute Auto 0.2 K/mm3 (0-0.3); Hematocrit 29.6 % (37.0-47.0); Hemoglobin 8.8 g/dL (12.0-15.0); Immature Granulocyte Absolute 0.01 K/mm3 (0.00-0.031); Immature Granulocyte Percent A 0.2 % (0-0.5); Immature Platelet Fraction Pct 7.7 % (0.9-11.2); Lymphocytes Absolute Auto 1.08 K/mm3 (0.9-3.2); Lymphocytes Percent Auto 24.8 % (18.3-44.2); Mean Corpuscular HGB Conc 29.7 g/dl (32-36); Mean Corpuscular Hemoglobin 23.7 pg (26-34); Mean Corpuscular Volume 79.8 fl (80-100); Monocytes Absolute Auto 0.6 K/mm3 (0.1-0.6); Monocytes Percent Auto 14.7 % (2.6-8.5); Neutrophils Absolute Auto 2.4 K/mm3 (1.3-6.7); Neutrophils Percent Auto 54.6 % (45.5-73.1); Platelet Count Result 124 k/mm3 (150-375); Red Blood Count 3.71 M/mm3 (4.2-5.4); Red Cell Distribution Width 20.4 % (11.5-14.5); White Blood Count 4.4 K/mm3 (4.5-10.0)
[2024-06-08 07:27] LABS: Alanine Aminotransferase 16 U/L (6-35); Albumin Level 3.6 g/dL (3.5-5.1); Alkaline Phosphatase 82 U/L (38-126); Anion Gap 10 mmol/L (4-12); Aspartate Amino Transferase 20 U/L (14-36); Bilirubin,Total 0.6 mg/dL (0.2-1.3); Blood Urea Nitrogen 7 mg/dL (7-17); Calcium 9.3 mg/dL (8.4-10.2); Carbon Dioxide 23 mmol/L (22-30); Chloride 107 mmol/L (98-107); Estimated Glomerular Filt Rate > 60; Glucose 163 mg/dL (65-110); Magnesium 2.3 mg/dL (1.6-2.3); Potassium 3.3 mmol/L (3.4-5.0); Sodium 140 mmol/L (137-145)
[2024-06-08 07:28] LABS: Anisocytosis 1+; Hypochromasia 1+; Platelet Estimate Slightly Decreased (Adequate); Schistocytes None Seen
[2024-06-08 07:52] LABS: Glucose Point of Care 156 mg/dl (65-105)
[2024-06-08 08:42] LABS: Glucose Point of Care 153 mg/dl (65-105)
[2024-06-08] MEDS: LACTATED RINGERS 1,000 ML 150 ML IV CONT (08:47)
--- NOTE | 2024-06-08 08:55 | WPDANESEPPF ---
Anes - Initial Pre Proc Eval Procedure: Operation Date: 06/08/24 16:00 Proposed Procedures p Esophagogastroduodenoscopy & Colonoscopy - Seng Pollock MD Date/Time: 06/08/24 08:55 Surgeon: René Arora MD Pre Op Diagnosis: ANEMIA, DIARRHEA Patient Data Age: 83 Gender: F Height: 1.5 m Weight: 64 kg Last Vital Signs Temp 36.6 C 06/08/24 08:44 Pulse 60 06/08/24 08:44 Resp 16 06/08/24 08:44 BP 127/54 L 06/08/24 08:44 Pulse Ox 100 06/08/24 08:44 O2 Del Method Room Air 06/08/24 08:44 Allergies Allergy/AdvReac Type Severity Reaction Status Date / Time empagliflozin (From Allergy Mild unkown Verified 05/14/24 13:34 Jardiance) ioversol Allergy Unknown Unknown Verified 05/14/24 13:27 codeine AdvReac Intermediate NAUSEA/VOMI Verified 05/14/24 13:27 TING Contrast Media Allergy Severe CARDIA/RESP Uncoded 05/14/24 13:27 ARREST Home Medications ?Medication ?Instructions ?Recorded ?Confirmed ?Type albuterol sulfate 90 mcg/actuation 1 inh inhalation QID PRN SOB 03/23/21 06/05/24 History aerosol inhaler (ProAir HFA) aspirin 81 mg tablet 81 mg PO DAILY 03/23/21 06/05/24 History atorvastatin 40 mg tablet 40 mg PO DAILY 03/23/21 06/05/24 History calcium 500 mg tablet 500 mg PO DAILY 03/23/21 06/05/24 History famotidine 20 mg tablet 20 mg PO BID 03/23/21 06/05/24 History glimepiride 4 mg tablet 4 mg PO BID 03/23/21 06/05/24 History lisinopril 10 mg tablet 10 mg PO DAILY 03/23/21 06/05/24 History metformin 500 mg tablet 500 mg PO BID 03/23/21 06/05/24 History multivit with minerals-iron 18 1 tablet PO DAILY 03/23/21 06/05/24 History mg-folic ac 400 mcg-vit K 25 mcg tablet (Adults Multivitamin) theophylline 300 mg 300 mg PO BID 03/23/21 06/05/24 History tablet,extended release,12 hr insulin glargine 100 unit/mL 40 unit subcut .HS 05/14/24 06/05/24 History subcutaneous solution (Lantus U-100 Insulin) metoprolol succinate 25 mg 25 mg PO DAILY 06/05/24 06/05/24 History tablet,extended release 24 hr Laboratory Tests 06/07/24 06/07/24 06/07/24 11:45 16:06 21:06 WBC RBC Hgb Hct MCV MCH MCHC RDW Plt Count MPV Immature Gran % (Auto) Neut % (Auto) Lymph % (Auto) [place] % (Auto) Eos % (Auto) Baso % (Auto) Lymph # (Auto) [place] # (Auto) Eos # (Auto) Baso # (Auto) Abs Immat Gran (auto) Absolute Neuts (auto) Absolute Nucleated RBC Band Neutrophils % Nucleated RBC % Platelet Estimate % Immature Plt Fraction Hypochromasia Anisocytosis Schistocytes Sodium Potassium Chloride Carbon Dioxide Anion Gap BUN Creatinine Estim Creat Clear Calc Estimated GFR Glucose POC Capillary Glucose 142 H mg/dl 177 H mg/dl 186 H mg/dl (65-105) (65-105) (65-105) Calcium Magnesium Total Bilirubin AST ALT Alkaline Phosphatase Total Protein Albumin 06/08/24 06/08/24 06/08/24 06:30 07:44 08:39 WBC 4.4 L K/mm3 (4.5-10.0) RBC 3.71 L M/mm3 (4.2-5.4) Hgb 8.8 L g/dL (12.0-15.0) Hct 29.6 L % (37.0-47.0) MCV 79.8 L fl (80-100) MCH 23.7 L pg (26-34) MCHC 29.7 L g/dl (32-36) RDW 20.4 H % (11.5-14.5) Plt Count 124 L k/mm3 (150-375) MPV 11.0 H fl (7.4-10.4) Immature Gran % (Auto) 0.2 % (0-0.5) Neut % (Auto) 54.6 % (45.5-73.1) Lymph % (Auto) 24.8 % (18.3-44.2) [place] % (Auto) 14.7 H % (2.6-8.5) Eos % (Auto) 5.0 H % (0-4.4) Baso % (Auto) 0.7 % (0.2-1.2) Lymph # (Auto) 1.08 K/mm3 (0.9-3.2) [place] # (Auto) 0.6 K/mm3 (0.1-0.6) Eos # (Auto) 0.2 K/mm3 (0-0.3) Baso # (Auto) 0.0 K/mm3 (0.0-0.1) Abs Immat Gran (auto) 0.01 K/mm3 (0.00-0.031) Absolute Neuts (auto) 2.4 K/mm3 (1.3-6.7) Absolute Nucleated RBC 0.000 K/mm3 (0.0-0.012) Band Neutrophils % Not Reportable Nucleated RBC % 0.0 % (0.0-0.2) Platelet Estimate Slightly decreased (Adequate) % Immature Plt Fraction 7.7 % (0.9-11.2) Hypochromasia 1+ Anisocytosis 1+ Schistocytes None seen Sodium 140 mmol/L (137-145) Potassium 3.3 L mmol/L (3.4-5.0) Chloride 107 mmol/L (98-107) Carbon Dioxide 23 mmol/L (22-30) Anion Gap 10 mmol/L (4-12) BUN 7 mg/dL (7-17) Creatinine 0.56 L mg/dL (0.7-1.0) Estim Creat Clear Calc Not Reportable Estimated GFR > 60 (59 - ) Glucose 163 H mg/dL (65-110) POC Capillary Glucose 156 H mg/dl 153 H mg/dl (65-105) (65-105) Calcium 9.3 mg/dL (8.4-10.2) Magnesium 2.3 mg/dL (1.6-2.3) Total Bilirubin 0.6 mg/dL (0.2-1.3) AST 20 U/L (14-36) ALT 16 U/L (6-35) Alkaline Phosphatase 82 U/L (38-126) Total Protein 7.0 g/dL (6.3-8.2) Albumin 3.6 g/dL (3.5-5.1) Patient hx anesthesia problems: none Family hx anesthesia problems: none Results Review: All pre-operative results and documents have been reviewed as part of the pre-operative evaluation. [facility] Past Medical History Medical History (Updated 06/08/24 @ 08:55 by Juan R Malone MD) COPD (chronic obstructive pulmonary disease) Diabetes Dark stools Weight loss Acute anemia Family History Family History Sibling Family history of alcoholism Family history of heart disease in male family member before age 55 Father Family history of lung cancer Family history of heart disease in male family member before age 55 Other Diabetes mellitus Hypertension Social History Social History Smoking packs per day: 4 Smoking cigarettes per day: 80.0 Years smoked: 60 Smoking pack-years: 240.00 Smoking status: Never smoker Alcohol intake: former Substance use: never Do You Feel Safe in your Home?: Yes Lack of Transportation: No Lack of Food: Never True Current Housing: I Have Housing Concerned About Future Housing: No Difficulty Paying Gas/Electric Bills: No Difficulty Paying for Meds: No Currently Unemployed: No Education: High School Diploma/GED Difficulty w/ Childcare or Family Care: No Spiritual care concerns: No Anes - Eval Final PreProcedure Day of Procedure 06/08/24 08:55 Patient weight: overweight Heart: regular rate and rhythm Lungs: decreased breath sounds Airway: Mallampati scale class II Neurological: alert and oriented Last oral intake: >/= 8 hours ASA classification: IV Emergent: no Anesthetic plan: proceed Anesthesia type and monitoring: general GIVS and standard monitoring Results Review: All pre-operative results and documents have been reviewed as part of the pre-operative evaluation. Informed Consent: The patient's anesthetic plan and its attendant risks and benefits were discussed with the patient/family/POA. Questions were solicited and answers provided to the satisfaction of the patient/family/POA.
--- NOTE | 2024-06-08 09:38 | SUR.OPER ---
egd ended at 933 and colonoscopy started at 938
[2024-06-08 11:46] LABS: Glucose Point of Care 129 mg/dl (65-105)
[2024-06-08] MEDS: ATORVASTATIN 40 MG TABLET PO (11:50)
[2024-06-08] MEDS: lisinopriL 10 MG TABLET PO (11:50)
[2024-06-08] MEDS: THEOPHYLLINE 300 MG ER 12 HR TABLET PO ×2 (11:50→21:50)
[2024-06-08] MEDS: POTASSIUM CHLORIDE INJ 40 MEQ in SODIUM CHLORIDE 0.9% IV 500 ML 130 MEQ IVPB (11:50)
[2024-06-08] MEDS: CALCIUM CARBONATE (OSCAL) 500 MG TABLET PO (11:51)
[2024-06-08] MEDS: MULTIVITAMINS /C LUTEIN (CENTRUM SILVER) TABLET *BKC 1 TAB PO (11:51)
[2024-06-08] MEDS: METOPROLOL SUCCINATE EXT REL 25 MG TABCR PO (11:51)
--- NOTE | 2024-06-08 13:00 | P.PNIM_ITS ---
Progress Note: A&P Assessment and Plan (1) Symptomatic anemia: Code(s): D64.9 - Anemia, unspecified Status: Acute Assessment and Plan: * H&H 6.8/23.4. Patient transfused 1 unit of PRBC's on 06/06 with post H&H 8.1 /27.9. Today's H&H was 9.8/29.6. * Guaiac negative in ER. * GI consulted, appreciate recommendations. * Transfuse if hgb less than 7. * Trend CBC. * Pantoprazole 40 mg ivp q 12. * Colonoscopy and EGD today. * Colonoscopy showed: few diverticula present in the left colon, single 4 mm polyp in the transverse colon, mild rectal prolapse with localized erythema was noted in the anus, and a few small-size internal hemorrhoids were seen in the rectum. * EGD showed: a small hiatal hernia at the GE junction. (2) Diabetes: Code(s): E11.9 - Type 2 diabetes mellitus without complications Status: Inactive Assessment and Plan: * HgbA1C 6.1%. * SSI, Hypoglycemic protocol. * Lantus at 20 units subq qhs. * Monitor blood sugars. (3) Asthma, mild intermittent: Code(s): J45.20 - Mild intermittent asthma, uncomplicated Status: Acute Assessment and Plan: * Albuterol Sulfate 1 puff QID PRN. * Theophylline 300 mg PO BID. * Check Theophylline level. (4) Hypokalemia: Code(s): E87.6 - Hypokalemia Status: Acute Assessment and Plan: * Potassium 3.3. * Potassium Chloride 40 meq IVPB x1. * Monitor level. Subjective Date/time seen: 06/08/24 13:00 Interval history: Patient report feeling tired from being up last night prepping for colonoscopy. Patient denies chest pain, palpitations, headache, dizziness, nausea, or vomiting. Review of Systems Review of Systems: All systems reviewed & are unremarkable except as noted in HPI and below Exam Const: General: comfortable and no acute distress Resp: Effort & Inspection: normal respiratory effort Auscultation: clear to auscultation bilaterally Cardio: Rate: regular rate Rhythm: regular rhythm GI: GI Palp: Yes Soft to palpation Auscultation: normal bowel sounds Neuro: Speech: normal speech Extrem: General: no pedal edema Psych: Mental Status: mental status grossly normal Affect: normal affect Objective Data Vital Signs Vital Signs: Vital Signs - 24 hr 06/07/24 14:00 06/07/24 20:00 06/07/24 22:00 Temperature 98.3 F 97.6 F Pulse Rate 61 81 Respiratory Rate 16 18 Blood Pressure 121/45 L 137/91 H Pulse Oximetry 99 94 Oxygen Delivery Room Air 06/08/24 05:10 06/08/24 08:44 06/08/24 09:55 Temperature 97.8 F 97.8 F Pulse Rate 93 60 69 Respiratory Rate 18 16 18 Blood Pressure 133/88 127/54 L 89/34 L Pulse Oximetry 95 100 100 Oxygen Delivery Room Air Room Air 06/08/24 10:05 06/08/24 10:12 Temperature Pulse Rate 72 67 Respiratory Rate 18 20 Blood Pressure 104/42 L 98/76 L Pulse Oximetry 100 100 Oxygen Delivery Room Air Room Air Intake/Output Intake/Output: Intake & Output 06/05/24 06/06/24 06/07/24 06/08/24 23:59 23:59 23:59 23:59 Intake Total 1890 1900 750 Balance 1890 1900 750 Meds/Results Medications: Active Medications Generic Name Dose Route Start Last Admin Trade Name Freq PRN Reason Stop Dose Admin Acetaminophen 650 mg 06/05/24 18:39 Acetaminophen 325 Mg Tablet PO Q4H PRN Mild Pain (1-3) or Fever Albuterol 1 puff 06/06/24 08:41 Albuterol Sulfate (*Sp) Aerosol 1 Puff INHALATION QID PRN Shortness Of Breath Albuterol/Ipratropium 3 ml 06/05/24 22:23 Ipratropium 0.5 Mg/Albuterol Sulfate 2.5 Mg Ampul.Neb 3 Ml INHALATION Q4HRT PRN shortness of breath/Wheezing Atorvastatin Calcium 40 mg 06/06/24 09:00 06/08/24 11:50 Atorvastatin 40 Mg Tablet PO 40 mg DAILY TAMIR Administration Calcium Carbonate 500 mg 06/06/24 09:00 06/08/24 11:51 Calcium Carbonate (Oscal) 500 Mg Tablet PO 07/06/24 08:59 500 mg DAILY TAMIR Administration Dextrose 12.5 gm 06/06/24 08:44 Dextrose 50% 25 Gm/50 Ml Syringe IV PUSH PRN PRN Hypoglycemia Protocol Glucagon 1 mg 06/06/24 08:44 Glucagon For Inj 1 Mg Vial IM PRN PRN Hypoglycemia Protocol Glucose 15 gm 06/06/24 08:44 Glucose Oral Gel 15 Gm Of Glucse In 37.5 Gm Tube PO PRN PRN Hypoglycemia Protocol Guaifenesin/Dextromethorphan 10 ml 06/05/24 22:23 Guaifenesin/Dextromethorphan 10 Ml Udc PO Q4H PRN Cough Sodium Chloride 1,000 mls @ 100 mls/hr 06/05/24 18:40 06/07/24 02:51 Normal Saline Iv IV CONT 100 mls/hr .Q10H TAMIR Administration Dextrose 1,000 mls @ 100 mls/hr 06/06/24 08:44 Dextrose 5% 1,000 Ml IVPB PRN PRN Hypoglycemia Protocol Insulin Aspart 3 - 6 units 06/06/24 12:00 06/08/24 11:49 Insulin Aspart (*Bkc) 100 Units/Ml SUB-Q Not Given TIDWM [facility] Protocol Insulin Aspart 1 - 3 units 06/06/24 21:00 06/07/24 21:23 Insulin Aspart (*Bkc) 100 Units/Ml SUB-Q Not Given HS [facility] Protocol Insulin Glargine 20 units 06/06/24 21:00 06/07/24 21:24 Insulin Glargine (*Bkc) 100 Units/Ml SUB-Q Not Given HS TAMIR Lisinopril 10 mg 06/06/24 09:00 06/08/24 11:50 Lisinopril 10 Mg Tablet PO 10 mg DAILY TAMIR Administration Melatonin 5 mg 06/05/24 22:23 Melatonin 5 Mg Tablet PO HS PRN Insomnia Metoprolol Succinate 25 mg 06/06/24 09:00 06/08/24 11:51 Metoprolol Succinate Ext Rel 25 Mg Tabcr PO 25 mg DAILY TAMIR Administration Multivitamins/Minerals 1 tab 06/06/24 09:00 06/08/24 11:51 Multivitamins /C Lutein (Centrum Silver) Tablet *Bkc PO 1 tab DAILY TAMIR Administration Polyethylene Glycol 17 gm 06/05/24 22:23 Polyethylene Glycol 3350 17 Gm Powd.Pack PO QAM PRN Constipation Prochlorperazine Edisylate 10 mg 06/05/24 22:23 Prochlorperazine Edisylate 10 Mg/2 Ml Vial IV PUSH Q6H PRN Nausea And Vomiting Theophylline 300 mg 06/06/24 09:00 06/08/24 11:50 Theophylline 300 Mg Er 12 Hr Tablet PO 300 mg Q12HR TAMIR Administration Radiology Results: ITS Impressions Chest X-Ray 06/05/24 18:26 IMPRESSION: No acute cardiopulmonary pathology. Labs Labs: Laboratory Results - last 24 hr 06/07/24 06/07/24 06/08/24 16:06 21:06 06:30 WBC 4.4 L RBC 3.71 L Hgb 8.8 L Hct 29.6 L MCV 79.8 L MCH 23.7 L MCHC 29.7 L RDW 20.4 H Plt Count 124 L MPV 11.0 H Immature Gran % (Auto) 0.2 Neut % (Auto) 54.6 Lymph % (Auto) 24.8 [place] % (Auto) 14.7 H Eos % (Auto) 5.0 H Baso % (Auto) 0.7 Lymph # (Auto) 1.08 [place] # (Auto) 0.6 Eos # (Auto) 0.2 Baso # (Auto) 0.0 Abs Immat Gran (auto) 0.01 Absolute Neuts (auto) 2.4 Absolute Nucleated RBC 0.000 Band Neutrophils % Not Reportable Nucleated RBC % 0.0 Platelet Estimate Slightly decreased % Immature Plt Fraction 7.7 Hypochromasia 1+ Anisocytosis 1+ Schistocytes None seen Sodium 140 Potassium 3.3 L Chloride 107 Carbon Dioxide 23 Anion Gap 10 BUN 7 Creatinine 0.56 L Estim Creat Clear Calc Not Reportable Estimated GFR > 60 Glucose 163 H POC Capillary Glucose 177 H 186 H Calcium 9.3 Magnesium 2.3 Total Bilirubin 0.6 AST 20 ALT 16 Alkaline Phosphatase 82 Total Protein 7.0 Albumin 3.6 06/08/24 06/08/24 06/08/24 07:44 08:39 11:41 WBC RBC Hgb Hct MCV MCH MCHC RDW Plt Count MPV Immature Gran % (Auto) Neut % (Auto) Lymph % (Auto) [place] % (Auto) Eos % (Auto) Baso % (Auto) Lymph # (Auto) [place] # (Auto) Eos # (Auto) Baso # (Auto) Abs Immat Gran (auto) Absolute Neuts (auto) Absolute Nucleated RBC Band Neutrophils % Nucleated RBC % Platelet Estimate % Immature Plt Fraction Hypochromasia Anisocytosis Schistocytes Sodium Potassium Chloride Carbon Dioxide Anion Gap BUN Creatinine Estim Creat Clear Calc Estimated GFR Glucose POC Capillary Glucose 156 H 153 H 129 H Calcium Magnesium Total Bilirubin AST ALT Alkaline Phosphatase Total Protein Albumin Quality VTE Prophylaxis VTE prophylaxis: mechanical ordered
[2024-06-08 16:56] LABS: Glucose Point of Care 177 mg/dl (65-105)
[2024-06-08 17:13] LABS: Theophylline < 2.5 mg/L (10.0-20.0)
[2024-06-08 21:33] LABS: Glucose Point of Care 244 mg/dl (65-105)
[2024-06-08] MEDS: INSULIN ASPART (*BKC) 100 UNITS/ML SUB-Q (21:50)
[2024-06-08] MEDS: INSULIN GLARGINE (*BKC) 100 UNITS/ML 20 UNITS SUB-Q (21:52)
[2024-06-09 06:00] VITALS: BP 117/56; PULSE 70; RESP 18; TEMP 37.1; O2SAT 99
[2024-06-09 07:11] LABS: Basophils Percent Auto 0.4 % (0.2-1.2); Eosinophils Absolute Auto 0.2 K/mm3 (0-0.3); Eosinophils Percent Auto 4.2 % (0-4.4); Hematocrit 28.6 % (37.0-47.0); Hemoglobin 8.4 g/dL (12.0-15.0); Immature Granulocyte Absolute 0.01 K/mm3 (0.00-0.031); Immature Granulocyte Percent A 0.2 % (0-0.5); Immature Platelet Fraction Pct 7.9 % (0.9-11.2); Lymphocytes Absolute Auto 1.06 K/mm3 (0.9-3.2); Lymphocytes Percent Auto 19.3 % (18.3-44.2); Mean Corpuscular HGB Conc 29.4 g/dl (32-36); Mean Corpuscular Hemoglobin 23.4 pg (26-34); Mean Corpuscular Volume 79.7 fl (80-100); Mean Platelet Volume 10.7 fl (7.4-10.4); Monocytes Absolute Auto 0.6 K/mm3 (0.1-0.6); Monocytes Percent Auto 11.3 % (2.6-8.5); Neutrophils Absolute Auto 3.5 K/mm3 (1.3-6.7); Neutrophils Percent Auto 64.6 % (45.5-73.1); Platelet Count Result 121 k/mm3 (150-375); Red Blood Count 3.59 M/mm3 (4.2-5.4); Red Cell Distribution Width 20.3 % (11.5-14.5); White Blood Count 5.5 K/mm3 (4.5-10.0)
[2024-06-09 07:25] LABS: Alanine Aminotransferase 15 U/L (6-35); Albumin Level 3.5 g/dL (3.5-5.1); Alkaline Phosphatase 78 U/L (38-126); Anion Gap 6 mmol/L (4-12); Aspartate Amino Transferase 18 U/L (14-36); Bilirubin,Total 0.8 mg/dL (0.2-1.3); Blood Urea Nitrogen 6 mg/dL (7-17); Calcium 9.6 mg/dL (8.4-10.2); Carbon Dioxide 25 mmol/L (22-30); Chloride 107 mmol/L (98-107); Estimated Glomerular Filt Rate > 60; Glucose 150 mg/dL (65-110); Potassium 3.5 mmol/L (3.4-5.0); Sodium 138 mmol/L (137-145)
--- NOTE | 2024-06-09 07:39 | WPDANESPN ---
Anes - Prog Note Post-Op Date/Time: 06/09/24 07:39 Cardiovascular status: normal Respiratory status: normal Airway patency: baseline Mental status: baseline Post-Op hydration status: normal Vital Signs: Last Vital Signs Temp 37.1 C 06/09/24 06:00 Pulse 70 06/09/24 06:00 Resp 18 06/09/24 06:00 BP 117/56 L 06/09/24 06:00 Pulse Ox 99 06/09/24 06:00 O2 Del Method Room Air 06/08/24 20:00 Pain Score (VAS): 0/10 I/O: Intake & Output 06/08/24 06/08/24 06/09/24 15:59 23:59 07:59 Intake Total 440 240 400 Balance 440 240 400 Laboratory Tests 06/09/24 06:47 06/06/24 06/08/24 06/08/24 08:52 07:44 08:39 WBC RBC Hgb Hct MCV MCH MCHC RDW Plt Count MPV Immature Gran % (Auto) Neut % (Auto) Lymph % (Auto) [place] % (Auto) Eos % (Auto) Baso % (Auto) Lymph # (Auto) [place] # (Auto) Eos # (Auto) Baso # (Auto) Abs Immat Gran (auto) Absolute Neuts (auto) Absolute Nucleated RBC Nucleated RBC % Sodium Potassium Chloride Carbon Dioxide Anion Gap BUN Creatinine Estim Creat Clear Calc Estimated GFR Glucose POC Capillary Glucose 156 H 153 H Calcium Magnesium Total Bilirubin AST ALT Alkaline Phosphatase Total Protein Albumin Theophylline < 2.5 L 06/08/24 06/08/24 06/08/24 11:41 16:51 20:57 WBC RBC Hgb Hct MCV MCH MCHC RDW Plt Count MPV Immature Gran % (Auto) Neut % (Auto) Lymph % (Auto) [place] % (Auto) Eos % (Auto) Baso % (Auto) Lymph # (Auto) [place] # (Auto) Eos # (Auto) Baso # (Auto) Abs Immat Gran (auto) Absolute Neuts (auto) Absolute Nucleated RBC Nucleated RBC % Sodium Potassium Chloride Carbon Dioxide Anion Gap BUN Creatinine Estim Creat Clear Calc Estimated GFR Glucose POC Capillary Glucose 129 H 177 H 244 H Calcium Magnesium Total Bilirubin AST ALT Alkaline Phosphatase Total Protein Albumin Theophylline 06/09/24 06:47 WBC Pending RBC Pending Hgb Pending Hct Pending MCV Pending MCH Pending MCHC Pending RDW Pending Plt Count Pending MPV Pending Immature Gran % (Auto) Pending Neut % (Auto) Pending Lymph % (Auto) Pending [place] % (Auto) Pending Eos % (Auto) Pending Baso % (Auto) Pending Lymph # (Auto) Pending [place] # (Auto) Pending Eos # (Auto) Pending Baso # (Auto) Pending Abs Immat Gran (auto) Pending Absolute Neuts (auto) Pending Absolute Nucleated RBC Pending Nucleated RBC % Pending Sodium 138 Potassium 3.5 Chloride 107 Carbon Dioxide 25 Anion Gap 6 BUN 6 L Creatinine 0.54 L Estim Creat Clear Calc Not Reportable Estimated GFR > 60 Glucose 150 H POC Capillary Glucose Calcium 9.6 Magnesium 2.0 Total Bilirubin 0.8 AST 18 ALT 15 Alkaline Phosphatase 78 Total Protein 6.0 L Albumin 3.5 Theophylline Post-procedural complaints: none Patient Feedback: Patient satisfied with anesthetic care.
[2024-06-09 08:00] LABS: Glucose Point of Care 164 mg/dl (65-105)
[2024-06-09 08:07] LABS: Anisocytosis 1+; Hypochromasia 1+; Platelet Estimate Slightly Decreased (Adequate)
[2024-06-09 08:08] LABS: Schistocytes None Seen
[2024-06-09 08:35] VITALS: PULSE 67
[2024-06-09] MEDS: THEOPHYLLINE 300 MG ER 12 HR TABLET PO (08:35)
[2024-06-09] MEDS: ATORVASTATIN 40 MG TABLET PO (08:35)
[2024-06-09] MEDS: lisinopriL 10 MG TABLET PO (08:35)
[2024-06-09] MEDS: METOPROLOL SUCCINATE EXT REL 25 MG TABCR PO (08:35)
[2024-06-09] MEDS: MULTIVITAMINS /C LUTEIN (CENTRUM SILVER) TABLET *BKC 1 TAB PO (08:35)
[2024-06-09] MEDS: CALCIUM CARBONATE (OSCAL) 500 MG TABLET PO (08:36)
[2024-06-09 11:50] LABS: Glucose Point of Care 191 mg/dl (65-105)
--- NOTE | 2024-06-09 11:58 | PM.IMPN ---
Subjective Date/time seen: 06/09/24 11:58 Review of Systems Review of Systems: All systems reviewed & are unremarkable except as noted in HPI and below Objective Data Vital Signs Vital Signs: Vital Signs - 24 hr 06/08/24 14:00 06/08/24 20:00 06/08/24 22:00 Temperature 98.1 F 98.5 F Pulse Rate 76 67 Respiratory Rate 18 18 Blood Pressure 110/53 L 115/51 L Pulse Oximetry 97 97 Oxygen Delivery Room Air 06/09/24 06:00 06/09/24 08:00 06/09/24 08:35 Temperature 98.7 F Pulse Rate 70 67 Respiratory Rate 18 Blood Pressure 117/56 L Pulse Oximetry 99 Oxygen Delivery Room Air Intake/Output Intake/Output: Intake & Output 06/06/24 06/07/24 06/08/24 06/09/24 23:59 23:59 23:59 23:59 Intake Total 1890 1900 1230 640 Balance 1890 1900 1230 640 Meds/Results Medications: Active Medications Generic Name Dose Route Start Last Admin Trade Name Freq PRN Reason Stop Dose Admin Acetaminophen 650 mg 06/05/24 18:39 Acetaminophen 325 Mg Tablet PO Q4H PRN Mild Pain (1-3) or Fever Albuterol 1 puff 06/06/24 08:41 Albuterol Sulfate (*Sp) Aerosol 1 Puff INHALATION QID PRN Shortness Of Breath Albuterol/Ipratropium 3 ml 06/05/24 22:23 Ipratropium 0.5 Mg/Albuterol Sulfate 2.5 Mg Ampul.Neb 3 Ml INHALATION Q4HRT PRN shortness of breath/Wheezing Atorvastatin Calcium 40 mg 06/06/24 09:00 06/09/24 08:35 Atorvastatin 40 Mg Tablet PO 40 mg DAILY TAMIR Administration Calcium Carbonate 500 mg 06/06/24 09:00 06/09/24 08:36 Calcium Carbonate (Oscal) 500 Mg Tablet PO 07/06/24 08:59 500 mg DAILY TAMIR Administration Dextrose 12.5 gm 06/06/24 08:44 Dextrose 50% 25 Gm/50 Ml Syringe IV PUSH PRN PRN Hypoglycemia Protocol Glucagon 1 mg 06/06/24 08:44 Glucagon For Inj 1 Mg Vial IM PRN PRN Hypoglycemia Protocol Glucose 15 gm 06/06/24 08:44 Glucose Oral Gel 15 Gm Of Glucse In 37.5 Gm Tube PO PRN PRN Hypoglycemia Protocol Guaifenesin/Dextromethorphan 10 ml 06/05/24 22:23 Guaifenesin/Dextromethorphan 10 Ml Udc PO Q4H PRN Cough Dextrose 1,000 mls @ 100 mls/hr 06/06/24 08:44 Dextrose 5% 1,000 Ml IVPB PRN PRN Hypoglycemia Protocol Insulin Aspart 3 - 6 units 06/06/24 12:00 06/09/24 11:48 Insulin Aspart (*Bkc) 100 Units/Ml SUB-Q Not Given TIDWM TAMIR Protocol Insulin Aspart 1 - 3 units 06/06/24 21:00 06/08/24 21:50 Insulin Aspart (*Bkc) 100 Units/Ml SUB-Q 1 units HS TAMIR Administration Protocol Insulin Glargine 20 units 06/06/24 21:00 06/08/24 21:52 Insulin Glargine (*Bkc) 100 Units/Ml SUB-Q 20 units HS TAMIR Administration Lisinopril 10 mg 06/06/24 09:00 06/09/24 08:35 Lisinopril 10 Mg Tablet PO 10 mg DAILY TAMIR Administration Melatonin 5 mg 06/05/24 22:23 Melatonin 5 Mg Tablet PO HS PRN Insomnia Metoprolol Succinate 25 mg 06/06/24 09:00 06/09/24 08:35 Metoprolol Succinate Ext Rel 25 Mg Tabcr PO 25 mg DAILY TAMIR Administration Multivitamins/Minerals 1 tab 06/06/24 09:00 06/09/24 08:35 Multivitamins /C Lutein (Centrum Silver) Tablet *Bkc PO 1 tab DAILY TAMIR Administration Polyethylene Glycol 17 gm 06/05/24 22:23 Polyethylene Glycol 3350 17 Gm Powd.Pack PO QAM PRN Constipation Prochlorperazine Edisylate 10 mg 06/05/24 22:23 Prochlorperazine Edisylate 10 Mg/2 Ml Vial IV PUSH Q6H PRN Nausea And Vomiting Theophylline 300 mg 06/06/24 09:00 06/09/24 08:35 Theophylline 300 Mg Er 12 Hr Tablet PO 300 mg Q12HR TAMIR Administration Radiology Results: ITS Impressions Chest X-Ray 06/05/24 18:26 IMPRESSION: No acute cardiopulmonary pathology. Labs Labs: Laboratory Results - last 24 hr 06/06/24 06/08/24 06/08/24 08:52 16:51 20:57 WBC RBC Hgb Hct MCV MCH MCHC RDW Plt Count MPV Immature Gran % (Auto) Neut % (Auto) Lymph % (Auto) [place] % (Auto) Eos % (Auto) Baso % (Auto) Lymph # (Auto) [place] # (Auto) Eos # (Auto) Baso # (Auto) Abs Immat Gran (auto) Absolute Neuts (auto) Absolute Nucleated RBC Band Neutrophils % Nucleated RBC % Platelet Estimate % Immature Plt Fraction Hypochromasia Anisocytosis Schistocytes Sodium Potassium Chloride Carbon Dioxide Anion Gap BUN Creatinine Estim Creat Clear Calc Estimated GFR Glucose POC Capillary Glucose 177 H 244 H Calcium Magnesium Total Bilirubin AST ALT Alkaline Phosphatase Total Protein Albumin Theophylline < 2.5 L 06/09/24 06/09/24 06/09/24 06:47 07:56 11:47 WBC 5.5 RBC 3.59 L Hgb 8.4 L Hct 28.6 L MCV 79.7 L MCH 23.4 L MCHC 29.4 L RDW 20.3 H Plt Count 121 L MPV 10.7 H Immature Gran % (Auto) 0.2 Neut % (Auto) 64.6 Lymph % (Auto) 19.3 [place] % (Auto) 11.3 H Eos % (Auto) 4.2 Baso % (Auto) 0.4 Lymph # (Auto) 1.06 [place] # (Auto) 0.6 Eos # (Auto) 0.2 Baso # (Auto) 0.0 Abs Immat Gran (auto) 0.01 Absolute Neuts (auto) 3.5 Absolute Nucleated RBC 0.000 Band Neutrophils % Not Reportable Nucleated RBC % 0.0 Platelet Estimate Slightly decreased % Immature Plt Fraction 7.9 Hypochromasia 1+ Anisocytosis 1+ Schistocytes None seen Sodium 138 Potassium 3.5 Chloride 107 Carbon Dioxide 25 Anion Gap 6 BUN 6 L Creatinine 0.54 L Estim Creat Clear Calc Not Reportable Estimated GFR > 60 Glucose 150 H POC Capillary Glucose 164 H 191 H Calcium 9.6 Magnesium 2.0 Total Bilirubin 0.8 AST 18 ALT 15 Alkaline Phosphatase 78 Total Protein 6.0 L Albumin 3.5 Theophylline
--- NOTE | 2024-06-09 13:17 | WPDGIPROGNO ---
Progress Note: A&P Assessment and Plan (1) Symptomatic anemia: Code(s): D64.9 - Anemia, unspecified Status: Acute Assessment and Plan: no major findings to explain anemia path report reviewed she is agreeable to have small bowel capsule endoscopic as outpatient, will set up no objections by GI standpoint to discharge (2) Weight loss: Code(s): R63.4 - Abnormal weight loss Status: Acute (3) Diarrhea: Code(s): R19.7 - Diarrhea, unspecified Status: Acute Assessment and Plan: normal random colon biopsies (4) Diabetes: Code(s): E11.9 - Type 2 diabetes mellitus without complications Status: Inactive Subjective Date/time seen: 06/09/24 13:17 Interval history: no major findings to explain anemia biopsies reviewed, no celiac, no h pylori, had benign rectal prolapse Review of Systems Review of Systems: All systems reviewed & are unremarkable except as noted in HPI and below Exam Const: General: comfortable and no acute distress HENMT: Face/Nose/Sinus: Normal nares present Eyes: General: appearance normal, both eyes and all related structures Neck: Neck: supple Resp: Auscultation: clear to auscultation bilaterally Cardio: Rate: regular rate Rhythm: regular rhythm GI: Inspection: non-distended GI Palp: Yes Soft to palpation and No Tenderness to palpation present (GI) Auscultation: normal bowel sounds Skin: General skin exam: no rashes or lesions noted Neuro: Speech: normal speech Motor exam (neuro): 5/5 motor strength present throughout Extrem: General: normal to inspection Psych: Mental Status: mental status grossly normal Objective Data Vital Signs Vital Signs: Vital Signs - 24 hr 06/08/24 14:00 06/08/24 20:00 06/08/24 22:00 Temperature 98.1 F 98.5 F Pulse Rate 76 67 Respiratory Rate 18 18 Blood Pressure 110/53 L 115/51 L Pulse Oximetry 97 97 Oxygen Delivery Room Air 06/09/24 06:00 06/09/24 08:00 06/09/24 08:35 Temperature 98.7 F Pulse Rate 70 67 Respiratory Rate 18 Blood Pressure 117/56 L Pulse Oximetry 99 Oxygen Delivery Room Air Intake/Output Intake/Output: Intake & Output 06/06/24 06/07/24 06/08/24 06/09/24 23:59 23:59 23:59 23:59 Intake Total 1889 1899 1230 640 Balance 1889 1899 1230 640 Meds/Results Medications: Active Medications Generic Name Dose Route Start Last Admin Trade Name Freq PRN Reason Stop Dose Admin Acetaminophen 650 mg 06/05/24 18:39 Acetaminophen 325 Mg Tablet PO Q4H PRN Mild Pain (1-3) or Fever Albuterol 1 puff 06/06/24 08:41 Albuterol Sulfate (*Sp) Aerosol 1 Puff INHALATION QID PRN Shortness Of Breath Albuterol/Ipratropium 3 ml 06/05/24 22:23 Ipratropium 0.5 Mg/Albuterol Sulfate 2.5 Mg Ampul.Neb 3 Ml INHALATION Q4HRT PRN shortness of breath/Wheezing Atorvastatin Calcium 40 mg 06/06/24 09:00 06/09/24 08:35 Atorvastatin 40 Mg Tablet PO 40 mg DAILY TAMIR Administration Calcium Carbonate 500 mg 06/06/24 09:00 06/09/24 08:36 Calcium Carbonate (Oscal) 500 Mg Tablet PO 07/06/24 08:59 500 mg DAILY TAMIR Administration Dextrose 12.5 gm 06/06/24 08:44 Dextrose 50% 25 Gm/50 Ml Syringe IV PUSH PRN PRN Hypoglycemia Protocol Glucagon 1 mg 06/06/24 08:44 Glucagon For Inj 1 Mg Vial IM PRN PRN Hypoglycemia Protocol Glucose 15 gm 06/06/24 08:44 Glucose Oral Gel 15 Gm Of Glucse In 37.5 Gm Tube PO PRN PRN Hypoglycemia Protocol Guaifenesin/Dextromethorphan 10 ml 06/05/24 22:23 Guaifenesin/Dextromethorphan 10 Ml Udc PO Q4H PRN Cough Dextrose 1,000 mls @ 100 mls/hr 06/06/24 08:44 Dextrose 5% 1,000 Ml IVPB PRN PRN Hypoglycemia Protocol Insulin Aspart 3 - 6 units 06/06/24 12:00 06/09/24 11:48 Insulin Aspart (*Bkc) 100 Units/Ml SUB-Q Not Given TIDWM TAMIR Protocol Insulin Aspart 1 - 3 units 06/06/24 21:00 06/08/24 21:50 Insulin Aspart (*Bkc) 100 Units/Ml SUB-Q 1 units HS TAMIR Administration Protocol Insulin Glargine 20 units 06/06/24 21:00 06/08/24 21:52 Insulin Glargine (*Bkc) 100 Units/Ml SUB-Q 20 units HS TAMIR Administration Lisinopril 10 mg 06/06/24 09:00 06/09/24 08:35 Lisinopril 10 Mg Tablet PO 10 mg DAILY TAMIR Administration Melatonin 5 mg 06/05/24 22:23 Melatonin 5 Mg Tablet PO HS PRN Insomnia Metoprolol Succinate 25 mg 06/06/24 09:00 06/09/24 08:35 Metoprolol Succinate Ext Rel 25 Mg Tabcr PO 25 mg DAILY TAMIR Administration Multivitamins/Minerals 1 tab 06/06/24 09:00 06/09/24 08:35 Multivitamins /C Lutein (Centrum Silver) Tablet *Bkc PO 1 tab DAILY TAMIR Administration Polyethylene Glycol 17 gm 06/05/24 22:23 Polyethylene Glycol 3350 17 Gm Powd.Pack PO QAM PRN Constipation Prochlorperazine Edisylate 10 mg 06/05/24 22:23 Prochlorperazine Edisylate 10 Mg/2 Ml Vial IV PUSH Q6H PRN Nausea And Vomiting Theophylline 300 mg 06/06/24 09:00 06/09/24 08:35 Theophylline 300 Mg Er 12 Hr Tablet PO 300 mg Q12HR TAMIR Administration Radiology Results: ITS Impressions Chest X-Ray 06/05/24 18:26 IMPRESSION: No acute cardiopulmonary pathology. Labs Labs: Laboratory Results - last 24 hr 06/06/24 06/08/24 06/08/24 08:52 16:51 20:57 WBC RBC Hgb Hct MCV MCH MCHC RDW Plt Count MPV Immature Gran % (Auto) Neut % (Auto) Lymph % (Auto) [place] % (Auto) Eos % (Auto) Baso % (Auto) Lymph # (Auto) [place] # (Auto) Eos # (Auto) Baso # (Auto) Abs Immat Gran (auto) Absolute Neuts (auto) Absolute Nucleated RBC Band Neutrophils % Nucleated RBC % Platelet Estimate % Immature Plt Fraction Hypochromasia Anisocytosis Schistocytes Sodium Potassium Chloride Carbon Dioxide Anion Gap BUN Creatinine Estim Creat Clear Calc Estimated GFR Glucose POC Capillary Glucose 177 H 244 H Calcium Magnesium Total Bilirubin AST ALT Alkaline Phosphatase Total Protein Albumin Theophylline < 2.5 L 06/09/24 06/09/24 06/09/24 06:47 07:56 11:47 WBC 5.5 RBC 3.59 L Hgb 8.4 L Hct 28.6 L MCV 79.7 L MCH 23.4 L MCHC 29.4 L RDW 20.3 H Plt Count 121 L MPV 10.7 H Immature Gran % (Auto) 0.2 Neut % (Auto) 64.6 Lymph % (Auto) 19.3 [place] % (Auto) 11.3 H Eos % (Auto) 4.2 Baso % (Auto) 0.4 Lymph # (Auto) 1.06 [place] # (Auto) 0.6 Eos # (Auto) 0.2 Baso # (Auto) 0.0 Abs Immat Gran (auto) 0.01 Absolute Neuts (auto) 3.5 Absolute Nucleated RBC 0.000 Band Neutrophils % Not Reportable Nucleated RBC % 0.0 Platelet Estimate Slightly decreased % Immature Plt Fraction 7.9 Hypochromasia 1+ Anisocytosis 1+ Schistocytes None seen Sodium 138 Potassium 3.5 Chloride 107 Carbon Dioxide 25 Anion Gap 6 BUN 6 L Creatinine 0.54 L Estim Creat Clear Calc Not Reportable Estimated GFR > 60 Glucose 150 H POC Capillary Glucose 164 H 191 H Calcium 9.6 Magnesium 2.0 Total Bilirubin 0.8 AST 18 ALT 15 Alkaline Phosphatase 78 Total Protein 6.0 L Albumin 3.5 Theophylline
[2024-06-09 14:00] VITALS: BP 119/63; PULSE 53; RESP 18; TEMP 36.3; O2SAT 99
--- NOTE | 2024-06-09 15:27 | P.DS_ITS ---
DS: Admitting Diagnosis Discharge Date 06/09/24 Admitting Diagnosis low blood counts DS: Discharge Diagnosis Discharge Diagnosis (1) Anemia: Code(s): D64.9 - Anemia, unspecified Status: Acute (2) Diarrhea: Code(s): R19.7 - Diarrhea, unspecified Status: Acute DS: Summary Hospital Course Hospital Course: Work-up findings: WBC 5.2; Hb 7.4 >> 7.2; PLT 130 INR 1.1; AST 22; ALT 20; ALP 84 CXR: No acute cardiopulmonary pathology. FOBT: -VE Patient received 1 unit of PRBC's. * Colonoscopy showed: few diverticula present in the left colon, single 4 mm polyp in the transverse colon, mild rectal prolapse with localized erythema was noted in the anus, and a few small-size internal hemorrhoids were seen in the rectum. * EGD showed: a small hiatal hernia at the GE junction. No bleeding during admission. Blood counts stable. Discharged home. Status at Discharge Functional status at discharge: independent ambulation Overall status at discharge: patient is progressing back to baseline Time Spent with Patient Time attestation: Total time spent providing and/or coordinating discharge services: Time spent: Greater than 30 minutes Exam Const: General: comfortable and no acute distress Resp: Effort & Inspection: normal respiratory effort Auscultation: clear to auscultation bilaterally Cardio: Rate: regular rate Rhythm: regular rhythm GI: GI Palp: Yes Soft to palpation Auscultation: normal bowel sounds Extrem: General: no pedal edema Psych: Mental Status: mental status grossly normal Affect: normal affect DS: Data Data Completed and Pending Completed studies during hospitalization: Pending at discharge 06/08/24 09:47 Surgical [PTH] Routine Surgical [PTH] Routine Labs on day of discharge: Labs from last 24 hours 06/09/24 06/09/24 06/09/24 11:47 07:56 06:47 WBC 5.5 RBC 3.59 L Hgb 8.4 L Hct 28.6 L MCV 79.7 L MCH 23.4 L MCHC 29.4 L RDW 20.3 H Plt Count 121 L MPV 10.7 H Immature Gran % (Auto) 0.2 Neut % (Auto) 64.6 Lymph % (Auto) 19.3 [place] % (Auto) 11.3 H Eos % (Auto) 4.2 Baso % (Auto) 0.4 Lymph # (Auto) 1.06 [place] # (Auto) 0.6 Eos # (Auto) 0.2 Baso # (Auto) 0.0 Abs Immat Gran (auto) 0.01 Absolute Neuts (auto) 3.5 Absolute Nucleated RBC 0.000 Band Neutrophils % Not Reportable Nucleated RBC % 0.0 Platelet Estimate Slightly decreased % Immature Plt Fraction 7.9 Hypochromasia 1+ Anisocytosis 1+ Schistocytes None seen Sodium 138 Potassium 3.5 Chloride 107 Carbon Dioxide 25 Anion Gap 6 BUN 6 L Creatinine 0.54 L Estim Creat Clear Calc Not Reportable Estimated GFR > 60 Glucose 150 H POC Capillary Glucose 191 H 164 H Calcium 9.6 Magnesium 2.0 Total Bilirubin 0.8 AST 18 ALT 15 Alkaline Phosphatase 78 Total Protein 6.0 L Albumin 3.5 Theophylline 06/08/24 06/08/24 06/06/24 20:57 16:51 08:52 WBC RBC Hgb Hct MCV MCH MCHC RDW Plt Count MPV Immature Gran % (Auto) Neut % (Auto) Lymph % (Auto) [place] % (Auto) Eos % (Auto) Baso % (Auto) Lymph # (Auto) [place] # (Auto) Eos # (Auto) Baso # (Auto) Abs Immat Gran (auto) Absolute Neuts (auto) Absolute Nucleated RBC Band Neutrophils % Nucleated RBC % Platelet Estimate % Immature Plt Fraction Hypochromasia Anisocytosis Schistocytes Sodium Potassium Chloride Carbon Dioxide Anion Gap BUN Creatinine Estim Creat Clear Calc Estimated GFR Glucose POC Capillary Glucose 244 H 177 H Calcium Magnesium Total Bilirubin AST ALT Alkaline Phosphatase Total Protein Albumin Theophylline < 2.5 L Discharge Plan Discharge Attending physician on discharge: Fran Arora Consulting providers: Seng Pollock Discharging Clinician: Kaila Gutierrez Anticipated Discharge Date/Time: 06/09/24 16:30 Patient Disposition: Home, Self-Care Activity: may shower and as tolerated Diet: diabetic Discharge Instructions: * Dr. Hunter office will call with results within 7 days of EGD and colonoscopy. If you haven't heard from their office within 7 days, please call the office. * Report any blood or dark stools to provider. * You received 1 unit of blood during admission. Hemoglobin today 8.4, hematocrit 28.6. * HgbA1C 6.1% on 06/06/24. Talk to primary provider about diabetic regimen if appetite decreases or your have low blood sugars. Thank you for entrusting [facility] with your healthcare! Patient Instructions: Antibiotic Form, Anemia (DC) Patient Language: Pashto Stand Alone Forms: General Discharge Information Follow-up/Referrals: Lars,Dain Stanford MD [Primary Care Provider] - 1 Week Discharge Medications: Continued insulin glargine [Lantus U-100 Insulin] 100 unit/mL solution 40 unit subcut .HS atorvastatin 40 mg Tablet 40 mg PO DAILY metformin 500 mg Tablet 500 mg PO BID calcium 500 mg Tablet 500 mg PO DAILY theophylline 300 mg tablet extended release 12 hr 300 mg PO BID famotidine 20 mg Tablet 20 mg PO BID lisinopril 10 mg Tablet 10 mg PO DAILY glimepiride 4 mg Tablet 4 mg PO BID aspirin 81 mg Tablet 81 mg PO DAILY albuterol sulfate [ProAir HFA] 90 mcg/actuation Hfa Aerosol Inhaler 1 inh INHALATION QID PRN (Reason: SOB) Adults Multivitamin 18 mg iron-400 mcg-25 mcg Tablet 1 tablet PO DAILY metoprolol succinate 25 mg tablet extended release 24 hr 25 mg PO DAILY Date of admission: 06/07/24 15:50 Primary Care Provider: LarsDain Admitting Provider: Fran Arora Attending physician on admission: Fran Arora Condition: Stable Hospitalist MIPS Heart Failure (Exclusion) Patient has history of Heart Transplant or Left Ventricular Assistive Device?: No IF YES, STOP HERE Heart Failure (Qualifier) Patient has current or prior documentation of LVEF less than or equal to 40%, or mod/servere depressed LVSF?: No IF NO, STOP HERE
[2024-06-09 17:01] LABS: Glucose Point of Care 169 mg/dl (65-105)
== END 2024-06-09 17:12 | disposition home or self-care (01) | DRG 812 ==
LOC: ANHED 18:10 → ANH3MEDSUR 19:30
PROVIDERS: Emergency Medicine; Internal Medicine; Internal Medicine Gastroenterology; Admitting Provider Internal Medicine; Emergency Provider Emergency Medicine; PCP Internal Medicine; Visit Provider Nurse Practitioner Family
PROC: 0DJ08ZZ Inspection of Upper Intestinal Tract, Via Natural or Artificial Opening Endoscopic (ICD-10-PCS; CPT 45378; principal; 2024-06-08 16:00)
DX: D64.9 Anemia, unspecified (principal); I10 Essential (primary) hypertension; K63.5 Polyp of colon; K21.9 Gastro-esophageal reflux disease without esophagitis; K57.30 Diverticulosis of large intestine without perforation or abscess without bleeding; K44.9 Diaphragmatic hernia without obstruction or gangrene; K62.3 Rectal prolapse; K64.8 Other hemorrhoids; R63.4 Abnormal weight loss; J45.909 Unspecified asthma, uncomplicated; E87.6 Hypokalemia; E11.9 Type 2 diabetes mellitus without complications; E78.5 Hyperlipidemia, unspecified; Z79.82 Long term (current) use of aspirin; Z80.0 Family history of malignant neoplasm of digestive organs; Z79.4 Long term (current) use of insulin; Z86.0101 Personal history of adenomatous and serrated colon polyps
CPT/HCPCS: 36415; 36430; 71045; 80053; 80198; 82728; 82948; 83036; 83540; 83550; 83615; 83735; 85014; 85018; 85025; 85046; 85055; 85610; 85730; 86850; 86900; 86901; 86923; 88305; 96360; 96361; 99285; A9270; G0378; J1815; J2003; J2470; J2704; J3480; J7030; J7040; J7120; P9016

== ENCOUNTER 2024-06-29 05:57 | Outpatient (CLI) | payer MEDICARE, SELFPAY ==
--- NOTE | 2024-06-23 10:26 | SUR.PREOP ---
Spoke with patient and confirmed that she did receive her instructions in the mail for her Givens procedure. She does not have any questions at this time.
--- OUTSIDE RECORDS SUMMARY | 2024-06-29 06:00 | XMS_ITS | Clinical Summary ---
Author Organization [facility] Address [address] [place] [id number] Care Team Providers Care Construction Assistant Name Role Phone Dain Rendon MD Primary Care Provider Allergies Active Allergy Reactions Criticality Noted Date Comments Cat Dander Codeine Iodinated Contrast Media Anaphylaxis High 06/08/2020 Poison Razia Extract Rosiglitazone Other (See comments) Low 06/16/2020 Shellfish Containing Products Unknown 2020 Medications famotidine (PEPCID) 20 mg tablet Take 1 tablet (20 mg total) by mouth 0 Active albuterol HFA (PROVENTIL HFA,VENTOLIN HFA,PROAIR HFA) 90 mcg/actuation inhaler Active lisinopriL (PRINIVIL,ZESTR IL) 10 mg tablet Take 1 tablet (10 mg total) by mouth daily 1 Active Lantus Solostar U-100 Insulin 100 unit/mL (3 mL) insulin pen 40 Units 1 Active sertraline (ZOLOFT) 50 mg tablet sertraline 50 mg tablet Take 1 tablet by mouth once daily Active HYDROcodone-radha taminophen (HYCET) solution 7.5-325 mg/15 mL every 6 (six) hours as needed Active aspirin 81 mg enteric coated tablet Take 1 tablet (81 mg total) by mouth daily Active glimepiride (AMARYL) 4 mg tablet glimepiride 4 mg tablet Take 1 tablet by mouth twice daily Active metFORMIN (GLUCOPHAGE) 500 mg tablet Take 1 tablet (500 mg total) by mouth 2 (two) times a day 1 Active multivitamin capsule Take 1 capsule by mouth daily Active cyanocobalamin (Vitamin B-12) 100 mcg tabletIndicatio ns:Prevention of Vitamin B12 Deficiency Take 1 tablet (100 mcg total) by mouth daily Active melatonin tablet Take by mouth Active theophylline anhydrous (THEOCHRON ORAL) Take 300 mg by mouth Active calcium citrate-vitamin D2 250-100 mg-unit per tablet Take 1 tablet by mouth 2 (two) times a day Active vit A/vit C/vit E/zinc/copper (PRESERVISION AREDS ORAL) Take by mouth 2 (two) times a day Active atorvastatin (LIPITOR) 40 mg tablet TAKE 1 TABLET(40 MG) BY MOUTH DAILY 90 tablet 5 Active metoprolol XL (TOPROL-XL) 25 mg extended release tablet TAKE 1 TABLET(25 MG) BY MOUTH DAILY 90 tablet 1 5 Active Active Problems Problem Noted Date Diagnosed Date Vaginal atrophy 03/19/2016 Vaginal bleeding 03/19/2016 Type 2 diabetes mellitus 08/22/2013 Overview (07/12/2016): DMII WO CMP UNCNTRLD Pure hypercholesterolemia 08/22/2013 Overview (07/12/2016): PURE HYPERCHOLESTEROLEM Encounters Date Type Department Care Team Description 05/13/2024 2:00 PM LABORATORY GENETICIST Ancillary Procedure [facility] Medical Group Cardiology [address] [place] [address] ESPINO (dyspnea on exertion); Hypertension associated with diabetes (HCC) from Last 3 Months Surgical History Surgery [...] diabetes mellitus - (Added by TW Conv) FDC current use of aspirin Current use of [...] on file Legal Sex Female 12:27 AM LABORATORY GENETICIST Gender Identity Not on file Sexual Orientation Not on file Obstetrics History Last Filed Vital Signs Vital Sign Reading Time Taken Comments Blood Pressure 136/60 03/18/2024 2:12 PM LABORATORY GENETICIST Pulse 75 03/18/2024 2:12 PM LABORATORY GENETICIST Temperature - - Respiratory Rate - - Oxygen Saturation 97% 03/18/2024 2:12 PM LABORATORY GENETICIST Inhaled Oxygen Concentration - - Weight 68.9 kg (152 lb) 03/18/2024 2:12 PM LABORATORY GENETICIST Height 149.9 cm (4' 11 ) 03/18/2024 2:12 PM LABORATORY GENETICIST Body Mass Index 30.7 03/18/2024 2:12 PM LABORATORY GENETICIST Plan of Treatment Health Maintenance Due Date [...] DOPPLER/CF WO CONTRAST Routine 05/13/2024 2:34 PM LABORATORY GENETICIST ESPINO (dyspnea on exertion) Hypertension associated with diabetes (HCC) SERUM LIPID PANEL Routine 11/09/2015 11: 10 PM CDT from Last 3 Months or Most Recently Relevant to Health Maintenance Results * TRANSTHORACIC ECHO (TTE) COMPLETE W DOPPLER/CF WO CONTRAST (05/13/2024 2:34 PM LABORATORY GENETICIST) LV EF % CONS SCIMAGE Anatomical Region Laterality Modality Ultrasound 05/13/2024 1:58 PM LABORATORY GENETICIST Narrative 05/13/2024 3:[address] [facility] Medical Group Cardiology [address] [facility] [address] [id number] [address], [place] [address], [place] [address] P:[phone] P:[phone] Echocardiographic Report Patient Name: LULA TOLEDO : 1940 Study Date: 05/13/2024 1:58:54 PM Gender: F Tech: Location: [place] Ref Provider: CHAN OWENS Height(Cm): 150 BSA: [...] FINDINGS: Interpretation Site: Exam was interpreted at [facility]. Left Ventricle: Normal left ventricular size. [...] jet. Electronically Signed By: Chan Owens MD, [facility] 05/13/2024 3:00:56 PM LABORATORY GENETICIST Procedure Note Chan Owens MD - 05/13/2024 [facility] Medical Group Cardiology [address] [address] [address] [facility] [address] [place], [place] [address] P:[phone] P:[phone] Echocardiographic Report Patient Name: LULA TOLEDO : 1940 Study Date: 05/13/2024 1:58:54 PM Gender: F Tech: Location: [place] Ref Provider: CHAN OWENS Height(Cm): 150 BSA: 1.69 Weight(Kg): 68.9 Heart Rate: 94 BP: 136 / 60 Quality: Good Order Provider: CAHN OWENS PROCEDURES: Echocardiographic Report: Transthoracic echocardiogram with [...] FINDINGS: Interpretation Site: Exam was interpreted at [facility]. Left Ventricle: Normal left ventricular size. [...] jet. Electronically Signed By: Chan Owens MD, [facility] 05/13/2024 3:00:56 PM LABORATORY GENETICIST us Chan Owens MD CV ECHO PROCEDURES [...] Most Recently Relevant to Health Maintenance Insurance [facility] MEDICARE ADVANTAGE [facility] MEDICARE ADVANTAGE Care Teams Construction Assistant Relationship Specialty Start Date End Date Dain Rendon MD PCP - General 01/02/10
--- OUTSIDE RECORDS SUMMARY | 2024-06-29 06:00 | XMS_ITS | Referral Summary ---
Author Organization [facility] Address [address] [place] [address] Care Team Providers Care Sustainability Engineer Name Role Phone Dain Rendon MD Primary Care Provider Encounters Date Type Department Care Team Description 05/13/2024 2:00 PM WOOD SHINGLE ROOFER Ancillary Procedure [facility] Medical Group Cardiology [address] [facility] [address] [place] [address] ESPINO (dyspnea on exertion); Hypertension associated with diabetes (HCC) from Last 3 Months Allergies Active Allergy [...] on file Legal Sex Female 12:27 AM WOOD SHINGLE ROOFER Gender Identity Not on file Sexual Orientation Not on file Last Filed Vital Signs Vital Sign Reading Time Taken Comments Blood Pressure 136/60 03/18/2024 2:12 PM WOOD SHINGLE ROOFER Pulse 75 03/18/2024 2:12 PM WOOD SHINGLE ROOFER Temperature - - Respiratory Rate - - Oxygen Saturation 97% 03/18/2024 2:12 PM WOOD SHINGLE ROOFER Inhaled Oxygen Concentration - - Weight 68.9 kg (152 lb) 03/18/2024 2:12 PM WOOD SHINGLE ROOFER Height 149.9 cm (4' 11 ) 03/18/2024 2:12 PM WOOD SHINGLE ROOFER Body Mass Index 30.7 03/18/2024 2:12 PM WOOD SHINGLE ROOFER Plan of Treatment Not on file Procedures Procedure Name Priority Date/Time Associated Diagnosis Comments TRANSTHORACIC ECHO (TTE) COMPLETE W DOPPLER/CF WO CONTRAST Routine 05/13/2024 2:34 PM WOOD SHINGLE ROOFER ESP[place] (dyspnea on exertion) Hypertension associated with diabetes (HCC) SERUM LIPID PANEL Routine 11/09/2015 11: 10 PM CDT from Last 3 Months or Most Recently Relevant to Health Maintenance Results * TRANSTHORACIC ECHO (TTE) COMPLETE W DOPPLER/CF WO CONTRAST (05/13/2024 2:34 PM WOOD SHINGLE ROOFER) LV EF % CONS SCIMAGE Anatomical Region Laterality Modality Ultrasound 05/13/2024 1:58 PM WOOD SHINGLE ROOFER Narrative 05/13/2024 3:01 PM WOOD SHINGLE ROOFER [facility] Medical Group Cardiology [address] [facility] [address] [id number] [address] [facility] [address], [place] [address] P:[phone] P:[phone] Echocardiographic Report Patient Name: LULA TOLEDO : 1940 Study Date: 05/13/2024 1:58:54 PM Gender: F Tech: Location: [place] Ref Provider: JEANNETTE OWENS Height(Cm): 150 BSA: 1.69 [...] Site: Exam was interpreted at [facility]. Left Ventricle: Normal left ventricular size. [...] jet. Electronically Signed By: Jeannette Owens MD, [facility] 05/13/2024 3:00:56 PM WOOD SHINGLE ROOFER Procedure Note Jeannette Owens MD - 05/13/2024 [facility] Medical Group Cardiology [address] [facility] [address] [address] [address] [facility] [address] [place], [place] [address] P:[phone] P:[phone] Echocardiographic Report Patient Name: LULA TOLEDO : 1940 Study Date: 05/13/2024 1:58:54 PM Gender: F Tech: Location: [place] Ref Provider: JEANNETTE OWENS Height(Cm): 150 BSA: 1.69 [...] Site: Exam was interpreted at [facility]. Left Ventricle: Normal left ventricular size. [...] jet. Electronically Signed By: Jeannette Owens MD, [facility] 05/13/2024 3:00:56 PM WOOD SHINGLE ROOFER us Jeannette Owens MD CV ECHO PROCEDURES Final [...] Most Recently Relevant to Health Maintenance Insurance [facility] MEDICARE [place] [address] [facility] MEDICARE ADVANTAGE Care Teams Sustainability Engineer Relationship Specialty Start Date End Date Dain Rendon MD PCP - General 01/02/10
--- OUTSIDE RECORDS SUMMARY | 2024-06-29 06:00 | XMS_ITS | Data Portability ---
Author Organization [place] [facility], Main Office Address [address] [place] [address] Care Team Providers Care Contact Lens Assistant Name Role Phone MARIA LUISA RENDON Primary Care Provider [phone] MARIA LUISA RENDON Referring Provider [phone] Assessment No assessment recorded. Plan of Treatment Reminders Order Date Submit Date Provider Last Modified By Organization Details Last Modified Time Details Appointments None recorded . Lab CBC w/ auto diff 025 06/12/19 25 [employer] [facility], [address], [place], [address], 5 03:15:17 CBC w/ auto diff 025 06/04/19 25 [employer] [facility], [address], [place], [address], 5 05:15:32 lipid panel, serum 025 06/04/19 25 [employer] [facility], [place], [address], 5 05:15:29 CMP, serum or plasma 025 06/04/19 25 [employer] [facility], [address] [place], [address], 5 05:15:31 TSH, serum or plasma 025 06/04/19 25 [employer] [facility], [address], [place], [address], 5 05:15:34 T4, free, serum 025 06/04/19 25 [facility], [address], [place], [address], 5 05:15:33 lipid panel, serum 025 04/23/19 25 [email or web address] [facility], [address], [place], [address], 5 17:38:18 CMP, serum or plasma 025 04/23/19 25 [id number] [facility], [address], [place], [address], 5 17:38:18 CBC w/ auto diff 025 04/23/19 25 [facility], [address], [place], [address], 5 17:38:18 HbA1c (hemoglo bin A1c), blood 025 04/23/19 25 [email or web address] [facility], [address], [place], [address], 5 17:38:18 lipid panel, serum 024 11/21/19 24 [facility], [address], [place], [address], 4 16:30:37 CMP, serum or plasma 024 11/21/19 24 [email or web address] [facility], [place], [address], 4 16:30:37 HbA1c (hemoglo bin A1c), blood 024 11/21/19 24 [id number] [facility], [address], [place], [address], 4 16:30:37 HbA1c (hemoglo bin A1c), blood 024 07/26/19 24 [id number] [facility], [address], [place], [address], 4 14:06:29 microalb umin/cre atinine, mass ratio, urine 024 07/26/19 24 [facility], [address], [place], [address], 4 14:06:29 CBC w/ auto diff 07/26/19 24 [id number] [facility], [address], [place], [address], 4 14:06:28 CMP, serum or plasma 024 07/26/19 24 [id number] [facility], [address], [place], [address], 4 14:06:28 TSH, serum or plasma 024 07/26/19 24 [id number] [facility], [address], [place], [address], 4 14:06:28 T4, free, serum 024 07/26/19 [id number] [facility], [address], [place], [address], 4 14:06:29 lipid panel, serum 024 07/26/19 [id number] [facility], [address], [place], [address], 4 14:06:29 Referral None recorded . Procedures None recorded . Surgeries None recorded . Imaging None recorded . Medication Orders Feosol 325 mg (65 mg iron) tablet 025 06/12/19 25 [id number], [address] [facility], [place], [place], [id number], 15:48:33 Patient TargetsNo targets recorded. Patient Instructions Encounter Date Encounter Id Patient Instructions Last Modified By Organization Details Last Modified Time 07/26/2023 [id number] Follow-up hypertension, hyperlipidemia, type 2 diabetes, chronic [...] with voice recognition software. Occasional wrong-word or [id number] substitutions may have occurred due to the inherent limitations of voice recognition software. Read the chart carefully and recognize, using context, where substitutions have occurred. [email or web address] Not available 07/26/2023 16:16:20 11/21/2023 [id number] dementia rating scale-2* [email or web address] Not available 11/21/2023 16:34:38 alcohol misuse* [email or web address] Not available 11/21/2023 16:34:38 depression screening* [email or web address] Not available 11/21/2023 16:34:38 Timed Up and Go test (TUG)* [email or web address] Not available 11/21/2023 16:34:38 multi-dimensiona l health assessment questionnaire* Not available 11/21/2023 16:34:38 Personalized [facility] lt Plan and Screening Recommendations Advance Directives - Do you have one? Yes Advance Directives - Do we have your advance directive on file in your health record? No, please bring in a copy at your earliest convenience Primary Prevention/Intervent ion (prevents or decreases the chance of common diseases from occurring) Smoking Risk: Non Smoker Alcohol Misuse Screening: Negative Weight: Appropriate Overweig ht continue your current weight loss efforts try [...] Risk Intermediate Risk I have no recommendations Acti ve diagnosis, Continue current treatment plan Heart Attack: Low risk Intermediate Risk I have no recommendations Acti ve diagnosis, Continue current treatment plan Clogging of the Arteries: Low risk Intermediate Risk I have no recommendations Acti ve diagnosis, Continue current treatment plan Diabetes: Low Risk Intermediate Risk Active diagnosis, Continue current treatment plan Secondary Prevention/Intervent ion (detects treatable diseases before they may cause symptoms, disability, or ) Breast Cancer Screening with mammogram: No screening necessary Cervical/Uterine/Ova cathi Cancer Screening: No screening necessary Osteoporosis Screening: No screening necessary Date Screening Last Performed: Colon Cancer Screening: Colonoscopy Date Screening Last Performed: _2021 Eye Disease Screening: Ordered Recommended today Recommended today, but you have declined Dementia Risk: Low I have no recommendations Depression Screening: Negative Active diagnosis, Continue current treatment plan Not available 11/21/2023 16:17:45 Follow-up hypertension, hyperlipidemia, [...] with voice recognition software. Occasional wrong-word or [id number] substitutions may have occurred due to the inherent limitations of voice recognition software. Read the chart carefully and recognize, using context, where substitutions have occurred. [email or web address] Not available 11/21/2023 16:34:25 04/23/2024 [id number] Follow-up chroni c obstructive lung disease, essential [...] with voice recognition software. Occasional wrong-word or vcnzk-l-xuly substitutions may have occurred due to the inherent limitations of voice recognition software. Read the chart carefully and recognize, using context, where substitutions have occurred. Created: Maria Luisa Rendon M.D. 04.23.2024 02:35 PM [email or web address] Not available 04/23/2024 15:35:27 06/04/2024 [id number] complete blood c ount (CBC): about this test [email or web address] Not available 06/04/2024 15:45:30 06/11/2024 [id number] Gastrointestinal hemorrhage, hypertension, chronic obstructive lung disease and type [address] on some Feosol Spansules 325 mg twice daily. Will give a trial of some Breztri samples two puffs twice daily. Will check a blood count. Already has a follow-up appointment instructed patient to let us know in the next week if there has been no significant improvement. Additional Orders - Directives - Recommendations 1. take Breztri two puffs twice daily. 2. Let us know in the next week her status. 3. Will start on iron supplementation Keep Appointment: Sat 02:30 PM [place] Portions of record are template driven. When necessary additional context will be provided. Additionally some portions have been created with voice recognition software. Occasional wrong-word or ehfxo-q-ccfb substitutions may have occurred due to the inherent limitations of voice recognition software. Read the chart carefully and recognize, using context, where substitutions may have occurred. Created: Maria Luisa Rendon M.D. 06.11.2024 02:48 PM [email or web address] Not available 06/11/2024 15:48:23 Reason for Referral None Reported. Results Created Date Observation Date Name Description Value Unit Range Abnormal Flag Note LastModifiedBy Organization Detail LastModifiedTime 08/30/19 24 08/31/2023 LIPID PANEL , STAND ERICA cholesterol, total 120 mg/dL <200 normal Not Available [employer] [facility] [address] [place], [address], 09/01/2023 04:37:35 08/30/19 24 08/31/2023 LIPID PANEL , STAND ERICA HDL cholesterol 62 mg/dL > or = 50 normal Not Available [facility] [id number] [place] [address], [address], 09/01/2023 04:37:35 08/30/19 24 08/31/2023 LIPID PANEL , STAND ERICA triglyceride s 124 mg/dL <150 normal Not Available [employer] [address], [address], 09/01/2023 04:37:35 08/30/19 24 08/31/2023 LIPID PANEL [...] using the Dee Dee n-Hop kins calcu latgarfiled n, which is a valid ated novel stevie posadas accur acy than the Fried olga equat ion in the estim ation of LDL-C . Dee Dee bush SS et al. ELENA. 2013; 310(1 9): 2061- 2068 (http ://ed ucati on.Meaghan Mcguire [employer]. com/f aq/FA Q164) Not Available [employer] [address], [address], 09/01/2023 04:37:35 08/30/19 24 08/31/2023 LIPID PANEL , STAND ERICA chol/HDLC ratio 1.9 (calc ) <5.0 normal Not Available [employer] [facility] [id number] [place] [address], [address], 09/01/2023 04:37:35 08/30/19 24 08/31/2023 LIPID PANEL , STAND ERICA non HDL cholesterol 58 mg/dL _(fernie c) <130 normal For patie nts with diabe demetirus plus 1 major ASCVD risk facto r, treat ing to a non-H DL-C goal of <100 mg/dL (LDL- C of <70 mg/dL ) is real rossio n. Not Available [address] [address] [place], [address], 09/01/2023 04:37:35 08/30/1908/31/2023 ALBUM IN, RANDO M URINE W/CRE ATINI NE creatinine, random urine 176 mg/dL 20-275 normal Not Available [address] [address] [place], [address], 09/01/2023 04:37:37 08/30/19 24 08/31/2023 ALBUM IN, RANDO M URINE W/CRE ATINI NE albumin, urine 6.3 mg/dL see note: normal Refer ence Range : Refer ence Range Not estab lishe d Not Available [address], [place], [address], 09/01/2023 04:37:37 08/30/1908/31/2023 ALBUM IN, RANDO M URINE W/CRE ATINI [...] a diagn ostic categ ory. Not Available [employer] [address] [address] [place], [address], 09/01/2023 04:37:37 08/30/19 24 08/31/2023 COMPR EHENS YANNA METAB OLIC PANEL glucose 160 mg/dL 65-99 high Fasti ng refer ence inter dk For someo ne witho ut known diabe demetrius, a gluco se value >125 mg/dL indic ates that they may have diabe demetrius and this shoul d be confi rmed with a follo w-up test. Not Available [address], [address], 09/01/2023 04:37:38 08/30/19 24 08/31/2023 COMPR EHENS YANNA METAB OLIC PANEL urea nitrogen (BUN) 14 mg/dL 7-25 normal Not Available [address], [address], 09/01/2023 04:37:38 08/30/19 24 08/31/2023 COMPR EHENS YANNA METAB OLIC PANEL creatinine 0.89 mg/dL 0.60-0 .95 normal Not Available [address], [address], 09/01/2023 04:37:38 08/30/19 24 08/31/2023 COMPR EHENS YANNA METAB OLIC PANEL eGFR 65 mL/mi n/1.7 3m2 > or = 60 normal Not Available [address], [address], 09/01/2023 04:37:38 08/30/19 24 08/31/2023 COMPR EHENS YANNA METAB OLIC PANEL BUN/creatini ne ratio SEE NOTE: (calc ) 6-22 Not Repor lynne: BUN and Creat inine are withi n refer ence range . Not Available [address], [address], 09/01/2023 04:37:38 08/30/19 24 08/31/2023 COMPR EHENS YANNA METAB OLIC PANEL sodium 137 mmol/ L 135-14 6 normal Not Available [address] [place], [address], 09/01/2023 04:37:38 08/30/19 24 08/31/2023 COMPR EHENS YANNA METAB OLIC PANEL potassium 3.9 mmol/ L 3.5-5. 3 normal Not Available [address], [address], 09/01/2023 04:37:38 08/30/19 24 08/31/2023 COMPR EHENS YANNA METAB OLIC PANEL chloride 101 mmol/ L 98-110 normal Not Available [address], [address], 09/01/2023 04:37:38 08/30/19 24 08/31/2023 COMPR EHENS YANNA METAB OLIC PANEL carbon dioxide 26 mmol/ L 20-32 normal Not Available [address], [address], 09/01/2023 04:37:38 08/30/19 24 08/31/2023 COMPR EHENS YANNA METAB OLIC PANEL calcium 10.4 mg/dL 8.6-10 .4 normal Not Available [address], [address], 09/01/2023 04:37:38 08/30/19 24 08/31/2023 COMPR EHENS YANNA METAB OLIC PANEL protein, total 7.5 g/dL 6.1-8. 1 normal Not Available [address], [address], 09/01/2023 04:37:38 08/30/19 24 08/31/2023 COMPR EHENS YANNA METAB OLIC PANEL albumin 4.7 g/dL 3.6-5. 1 normal Not Available [facility] [address], [address], 09/01/2023 04:37:38 08/30/19 24 08/31/2023 COMPR EHENS YANNA METAB OLIC PANEL globulin 2.8 g/dL_ (calc ) 1.9-3. 7 normal Not Available [address], [address], 09/01/2023 04:37:38 08/30/19 24 08/31/2023 COMPR EHENS YANNA METAB OLIC PANEL albumin/glob ulin ratio 1.7 (calc ) 1.0-2. 5 normal Not Available [address], [address], 09/01/2023 04:37:38 08/30/19 24 08/31/2023 COMPR EHENS YANNA METAB OLIC PANEL bilirubin, total 0.7 mg/dL 0.2-1. 2 normal Not Available [address], [address], 09/01/2023 04:37:38 08/30/19 24 08/31/2023 COMPR EHENS YANNA METAB OLIC PANEL alkaline phosphatase 90 U/L 37-153 normal Not Available [address], [address], 09/01/2023 04:37:38 08/30/19 24 08/31/2023 COMPR EHENS YANNA METAB OLIC PANEL AST 15 U/L 10-35 normal Not Available [address], [address], 09/01/2023 04:37:38 08/30/19 24 08/31/2023 COMPR EHENS YANNA METAB OLIC PANEL ALT 11 U/L 6-29 normal Not Available [address], [address], 09/01/2023 04:37:38 08/30/19 24 08/31/2023 CBC (INCL UDES DIFF/ PLT) white blood cell count 8.2 thous and/u L 3.8-10 .8 normal Not Available [facility] [address], [address], 09/01/2023 04:37:39 08/30/1908/31/2023 CBC (INCL UDES DIFF/ PLT) red blood cell count 4.28 erasmo on/uL 3.80-5 .10 normal Not Available [facility] [address], [address], 09/01/2023 04:37:39 08/30/19 24 08/31/2023 CBC (INCL UDES DIFF/ PLT) hemoglobin 9.6 g/dL 11.7-1 5.5 low Not Available [facility] [address], [address], 09/01/2023 04:37:39 08/30/19 24 08/31/2023 CBC (INCL UDES DIFF/ PLT) hematocrit 34.3 % 35.0-4 5.0 low Not Available [employer] [address], [address], 09/01/2023 04:37:39 08/30/19 24 08/31/2023 CBC (INCL UDES DIFF/ PLT) MCV 80.1 fL 80.0-1 00.0 normal Not Available [employer] [address], [address], 09/01/2023 04:37:39 08/30/19 24 08/31/2023 CBC (INCL UDES DIFF/ PLT) MCH 22.4 pg 27.0-3 3.0 low Not Available [facility] [address], [address], 09/01/2023 04:37:39 08/30/19 24 08/31/2023 CBC (INCL UDES DIFF/ PLT) MCHC 28.0 g/dL 32.0-3 6.0 low Not Available [facility] [address], [address], 09/01/2023 04:37:39 08/30/19 24 08/31/2023 CBC (INCL UDES DIFF/ PLT) RDW 17.4 % 11.0-1 5.0 high Not Available [address], [address], 09/01/2023 04:37:39 08/30/19 24 08/31/2023 CBC (INCL UDES DIFF/ PLT) platelet count 197 thous and/u L 140-40 0 normal Not Available [address], [address], 09/01/2023 04:37:39 08/30/1908/31/2023 CBC (INCL UDES DIFF/ PLT) MPV 12.4 fL 7.5-12 .5 normal Not Available [address], [address], 09/01/2023 04:37:39 08/30/19 24 08/31/2023 CBC (INCL UDES DIFF/ PLT) absolute neutrophils 6002 cells /uL 1500-7 800 normal Not Available [address], [address], 09/01/2023 04:37:39 08/30/19 24 08/31/2023 CBC (INCL UDES DIFF/ PLT) absolute lymphocytes 1460 cells /uL 850-39 00 normal Not Available [address], [address], 09/01/2023 04:37:39 08/30/19 24 08/31/2023 CBC (INCL UDES DIFF/ PLT) absolute monocytes 607 cells /uL 200-95 0 normal Not Available [address], [address], 09/01/2023 04:37:39 08/30/19 24 08/31/2023 CBC (INCL UDES DIFF/ PLT) absolute eosinophils 74 cells /uL 15-500 normal Not Available [address], [address], 09/01/2023 04:37:39 08/30/19 24 08/31/2023 CBC (INCL UDES DIFF/ PLT) absolute basophils 57 cells /uL 0-200 normal Not Available [facility] [address], [address], 09/01/2023 04:37:39 08/30/19 24 08/31/2023 CBC (INCL UDES DIFF/ PLT) neutrophils 73.2 % normal Not Available [facility] [address], [address], 09/01/2023 04:37:39 08/30/19 24 08/31/2023 CBC (INCL UDES DIFF/ PLT) lymphocytes 17.8 % normal Not Available [facility] [address], [address], 09/01/2023 04:37:39 08/30/19 24 08/31/2023 CBC (INCL UDES DIFF/ PLT) monocytes 7.4 % normal Not Available [facility] [address], [address], 09/01/2023 04:37:39 08/30/19 24 08/31/2023 CBC (INCL UDES DIFF/ PLT) eosinophils 0.9 % normal Not Available [facility] [address], [address], 09/01/2023 04:37:39 08/30/19 24 08/31/2023 CBC (INCL UDES DIFF/ PLT) basophils 0.7 % normal Not Available [address], [address], 09/01/2023 04:37:39 08/30/19 24 08/31/2023 T4, FREE T4, free 0.9 NG/dL 0.8-1. 8 normal Not Available [address] [place], [address], 09/01/2023 04:37:40 08/30/1908/31/2023 TSH TSH 1.41 mIU/L 0.40-4 .50 normal Not Available [facility] [employer] [facility] [address] [place], [address], 09/01/2023 04:37:41 08/30/1908/31/2023 HEMOG LOBIN A1C hemoglobin [...] c503 platf orm. Effec tive , a michael granados in test platf orms from the [facility] Archi tect to the Mikel amy c503 may have shift ed HbA1c resul ts marcellus red to histo rical resul ts. Based on labor atory valid ation testi ng condu cted at [facility] , the Mikel platf orm relat yanna to the [facility] platf orm had an avera ge incre ase in HbA1c value of < or = 0.3%. This diffe rence is withi n accep lynne varia bilit y estab lishe d by the Natio nal Glyco hemog lobin Stand ardiz ation Progr am. Note that not all indiv idual s will have had a shift in their resul ts and direc t marcellus rison s betwe en histo rical and curre nt resul ts for testi ng condu cted on diffe rent platf orms is not recom ryan muir. Not Available [address] [address] [place], [address], 09/01/2023 04:37:42 01/16/2001/17/2024 LIPID PANEL , STAND ERICA cholesterol, total 137 mg/dL <200 normal Not Available [address] [address] [place], [address], 01/17/2024 03:11:49 01/16/2001/17/2024 LIPID PANEL , STAND ERICA HDL cholesterol 57 mg/dL > or = 50 normal Not Available [address] [address] [place], [address], 01/17/2024 03:11:49 01/16/2001/17/2024 LIPID PANEL , STAND ERICA triglyceride s 115 mg/dL <150 normal Not Available [address] [address] [place], [address], 01/17/2024 03:11:49 01/16/2001/17/2024 LIPID PANEL , STAND ERICA LDL-choleste rol 60 mg/dL _(fernie c) normal Refer ence range : <100 Mary able range <100 mg/dL for prima ry preve ntion ; <70 mg/dL for patie nts with CHD or diabe tic patie nts with > or = 2 CHD risk facto rs. LDL-C is now calcu lated using the Dee Dee n-Hop kins elliotu oliver n, which is a valid ated novel stevie payne ackiley than the Raj espinoza equat ion in the estim ation of LDL-C . Dee Dee bush SS et al. ELENA. 2013; 310(1 9): 2061- 2068 (http ://ed ucati on.Qu estDi [employer]. com/f aq/FA Q164) Not Available [address], [address], 01/17/2024 03:11:49 01/16/2001/17/2024 LIPID PANEL , STAND ERICA chol/HDLC ratio 2.4 (calc ) <5.0 normal Not Available [facility] [address], [address], 01/17/2024 03:11:49 01/16/2001/17/2024 LIPID PANEL , STAND ERICA non HDL cholesterol 80 mg/dL _(fernie c) <130 normal For patie nts with diabe demetrius plus 1 major ASCVD risk facto r, treat ing to a non-H DL-C goal of <100 mg/dL (LDL- C of <70 mg/dL ) is consi omidd a candido pechina c optio n. Not Available [address], [address], 01/17/2024 03:11:49 01/16/2001/17/2024 COMPR EHENS YANNA METAB OLIC PANEL , PLASM A glucose 172 mg/dL 65-99 high Fasti ng refer ence inter dk For someo ne witho ut known diabe demetrius, a gluco se value >125 mg/dL indic ates that they may have diabe demetrius and this shoul d be confi rmed with a follo w-up test. Not Available [address], [address], 01/17/2024 03:11:50 01/16/20 24 01/17/2024 COMPR EHENS YANNA METAB OLIC PANEL , PLASM A urea nitrogen (BUN) 13 mg/dL 7-25 normal Not Available [facility] [address], [address], 01/17/2024 03:11:50 01/16/20 24 01/17/2024 COMPR EHENS YANNA METAB OLIC PANEL , PLASM A creatinine 0.79 mg/dL 0.60-0 .95 normal Not Available [address] [address] [place], [address], 01/17/2024 03:11:50 01/16/20 24 01/17/2024 COMPR EHENS YANNA METAB OLIC PANEL , PLASM A eGFR 75 mL/mi n/1.7 3m2 > or = 60 normal Not Available [address], [address], 01/17/2024 03:11:50 01/16/20 24 01/17/2024 COMPR EHENS YANNA METAB OLIC PANEL , PLASM A BUN/creatini ne ratio SEE NOTE: (calc ) 6-22 Not Repor lynne: BUN and Creat inine are withi n refer ence range . Not Available [address], [address], 01/17/2024 03:11:50 01/16/20 24 01/17/2024 COMPR EHENS YANNA METAB OLIC PANEL , PLASM A sodium 136 mmol/ L 135-14 6 normal Not Available [address], [address], 01/17/2024 03:11:50 01/16/20 24 01/17/2024 COMPR EHENS YANNA METAB OLIC PANEL , PLASM A potassium 3.8 mmol/ L 3.4-4. 8 normal Not Available [address], [address], 01/17/2024 03:11:50 01/16/20 24 01/17/2024 COMPR EHENS YANNA METAB OLIC PANEL , PLASM A chloride 101 mmol/ L 98-110 normal Not Available [address], [address], 01/17/2024 03:11:50 01/16/20 24 01/17/2024 COMPR EHENS YANNA METAB OLIC PANEL , PLASM A carbon dioxide 25 mmol/ L 20-32 normal Not Available [address], [address], 01/17/2024 03:11:50 01/16/20 24 01/17/2024 COMPR EHENS YANNA METAB OLIC PANEL , PLASM A calcium 9.8 mg/dL 8.6-10 .4 normal Not Available [address], [address], 01/17/2024 03:11:50 01/16/20 24 01/17/2024 COMPR EHENS YANNA METAB OLIC PANEL , PLASM A protein, total 7.1 g/dL 6.4-8. 4 normal Not Available [address], [address], 01/17/2024 03:11:50 01/16/20 24 01/17/2024 COMPR EHENS YANNA METAB OLIC PANEL , PLASM A albumin 4.3 g/dL 3.6-5. 1 normal Not Available [address], [address], 01/17/2024 03:11:50 01/16/2001/17/2024 COMPR EHENS YANNA METAB OLIC PANEL , PLASM A globulin 2.8 g/dL_ (calc ) 2.2-4. 0 normal Not Available [address], [address], 01/17/2024 03:11:50 01/16/20 24 01/17/2024 COMPR EHENS YANNA METAB OLIC PANEL , PLASM A albumin/glob ulin ratio 1.5 (calc ) 0.9-2. 3 normal Not Available [address], [address], 01/17/2024 03:11:50 01/16/20 24 01/17/2024 COMPR EHENS YANNA METAB OLIC PANEL , PLASM A bilirubin, total 0.5 mg/dL 0.2-1. 2 normal Not Available [address] [place], [address], 01/17/2024 03:11:50 01/16/20 24 01/17/2024 COMPR EHENS YANNA METAB OLIC PANEL , PLASM A alkaline phosphatase 75 U/L 37-153 normal Not Available [facility] [address] [place], [address], 01/17/2024 03:11:50 01/16/20 24 01/17/2024 COMPR EHENS YANNA METAB OLIC PANEL , PLASM A AST 12 U/L 10-35 normal Not Available [address] [address] [place], [address], 01/17/2024 03:11:50 01/16/20 24 01/17/2024 COMPR EHENS YANNA METAB OLIC PANEL , PLASM A ALT 9 U/L 6-29 normal Not Available [address] [address] [place], [address], 01/17/2024 03:11:50 01/16/20 24 01/17/2024 HEMOG LOBIN [...] diabe demetrius for child margarita. Not Available [facility] [employer] [address] [address] [place], [address], 01/17/2024 03:11:51 06/04/1906/05/2024 LIPID PANEL , STAND ERICA cholesterol, total 113 mg/dL <200 normal Not Available [address], [address], 06/05/2024 05:15:29 06/04/19 25 06/05/2024 LIPID PANEL , STAND ERICA HDL cholesterol 50 mg/dL > or = 50 normal Not Available [address] [address] [place], [address], 06/05/2024 05:15:29 06/04/1906/05/2024 LIPID PANEL , STAND ERICA triglyceride s 102 mg/dL <150 normal Not Available [address], [address], 06/05/2024 05:15:29 06/04/1906/05/2024 LIPID PANEL , STAND ERICA LDL-choleste rol 44 mg/dL _(fernie c) normal Refer ence range : <100 Mary able range <100 mg/dL for prima ry preve ntion ; <70 mg/dL for patie nts with CHD or diabe tic patie nts with > or = 2 CHD risk facto rs. LDL-C is now calcu lated using the Dee Dee n-Hop kins elliotu oliver n, which is a valid ated novel stevie posadas accur acy than the Fried olga equat ion in the estim ation of LDL-C . Dee Dee bush SS et al. ELENA. 2013; 310(1 9): 2061- 2068 (http ://ed ucati on.Qu Shayla [email or web address] Menuss. com/f aq/FA Q164) Not Available [address] [address] [place], [address], 06/05/2024 05:15:29 06/04/19 25 06/05/2024 LIPID PANEL , STAND ERICA chol/HDLC ratio 2.3 (calc ) <5.0 normal Not Available [address] [address] [place], [address], 06/05/2024 05:15:29 06/04/1906/05/2024 LIPID PANEL , STAND ERICA non HDL cholesterol 63 mg/dL _(fernie c) <130 normal For patie nts with diabe demetrius plus 1 major ASCVD risk facto r, treat ing to a non-H DL-C goal of <100 mg/dL (LDL- C of <70 mg/dL ) is consi dered a thera peuti c optio n. Not Available [address], [address], 06/05/2024 05:15:29 06/04/1906/05/2024 COMPR EHENS YANNA METAB OLIC PANEL , PLASM A glucose 165 mg/dL 65-139 high Non-f astin g refer ence inter dk Not Available [address] [address] [place], [address], 06/05/2024 05:15:31 06/04/19 25 06/05/2024 COMPR EHENS YANNA METAB OLIC PANEL , PLASM A urea nitrogen (BUN) 14 mg/dL 7-25 normal Not Available [address], [address], 06/05/2024 05:15:31 06/04/19 25 06/05/2024 COMPR EHENS YANNA METAB OLIC PANEL , PLASM A creatinine 0.67 mg/dL 0.60-0 .95 normal Not Available [facility] [address] [place], [address], 06/05/2024 05:15:31 06/04/1906/05/2024 COMPR EHENS YANNA METAB OLIC PANEL , PLASM A eGFR 87 mL/mi n/1.7 3m2 > or = 60 normal Not Available [facility] [address] [address] [place], [address], 06/05/2024 05:15:31 06/04/19 25 06/05/2024 COMPR EHENS YANNA METAB OLIC PANEL , PLASM A BUN/creatini ne ratio SEE NOTE: (calc ) 6-22 Not Repor lynne: BUN and Creat inine are withi n refer ence range . Not Available [address] [place], [address], 06/05/2024 05:15:31 06/04/1906/05/2024 COMPR EHENS YANNA METAB OLIC PANEL , PLASM A sodium 138 mmol/ L 135-14 6 normal Not Available [address], [address], 06/05/2024 05:15:31 06/04/19 25 06/05/2024 COMPR EHENS YANNA METAB OLIC PANEL , PLASM A potassium 3.9 mmol/ L 3.4-4. 8 normal Not Available [address], [address], 06/05/2024 05:15:31 06/04/19 25 06/05/2024 COMPR EHENS YANNA METAB OLIC PANEL , PLASM A chloride 104 mmol/ L 98-110 normal Not Available [address], [address], 06/05/2024 05:15:31 06/04/19 25 06/05/2024 COMPR EHENS YANNA METAB OLIC PANEL , PLASM A carbon dioxide 27 mmol/ L 20-32 normal Not Available [address], [address], 06/05/2024 05:15:31 06/04/19 25 06/05/2024 COMPR EHENS YANNA METAB OLIC PANEL , PLASM A calcium 9.8 mg/dL 8.6-10 .4 normal Not Available [address], [address], 06/05/2024 05:15:31 06/04/1906/05/2024 COMPR EHENS YANNA METAB OLIC PANEL , PLASM A protein, total 6.5 g/dL 6.4-8. 4 normal Not Available [address], [address], 06/05/2024 05:15:31 06/04/19 25 06/05/2024 COMPR EHENS YANNA METAB OLIC PANEL , PLASM A albumin 4.1 g/dL 3.6-5. 1 normal Not Available [address], [address], 06/05/2024 05:15:31 06/04/1906/05/2024 COMPR EHENS YANNA METAB OLIC PANEL , PLASM A globulin 2.4 g/dL_ (calc ) 2.2-4. 0 normal Not Available [address], [address], 06/05/2024 05:15:31 06/04/19 25 06/05/2024 COMPR EHENS YANNA METAB OLIC PANEL , PLASM A albumin/glob ulin ratio 1.7 (calc ) 0.9-2. 3 normal Not Available [address], [address], 06/05/2024 05:15:31 06/04/19 25 06/05/2024 COMPR EHENS YANNA METAB OLIC PANEL , PLASM A bilirubin, total 0.3 mg/dL 0.2-1. 2 normal Not Available [address], [address], 06/05/2024 05:15:31 06/04/1906/05/2024 COMPR EHENS YANNA METAB OLIC PANEL , PLASM A alkaline phosphatase 75 U/L 37-153 normal Not Available [address], [address], 06/05/2024 05:15:31 06/04/19 25 06/05/2024 COMPR EHENS YANNA METAB OLIC PANEL , PLASM A AST 18 U/L 10-35 normal Not Available [address], [address], 06/05/2024 05:15:31 06/04/19 25 06/05/2024 COMPR EHENS YANNA METAB OLIC PANEL , PLASM A ALT 17 U/L 6-29 normal Not Available [address], [address], 06/05/2024 05:15:31 06/04/19 25 06/05/2024 CBC (INCL UDES DIFF/ PLT) white blood cell count 5.3 thous and/u L 3.8-10 .8 normal Not Available [address], [address], 06/05/2024 05:15:32 06/04/19 25 06/05/2024 CBC (INCL UDES DIFF/ PLT) red blood cell count 3.39 erasmo on/uL 3.80-5 .10 low Not Available [employer] [address], [address], 06/05/2024 05:15:32 06/04/19 25 06/05/2024 CBC (INCL UDES DIFF/ PLT) hemoglobin 7.6 g/dL 11.7-1 5.5 low Not Available [employer] [address], [address], 06/05/2024 05:15:32 06/04/19 25 06/05/2024 CBC (INCL UDES DIFF/ PLT) hematocrit 26.7 % 35.0-4 5.0 low Not Available [employer] [address], [address], 06/05/2024 05:15:32 06/04/19 25 06/05/2024 CBC (INCL UDES DIFF/ PLT) MCV 78.8 fL 80.0-1 00.0 low Not Available [facility] [address] [address], [place], [address], 06/05/2024 05:15:32 06/04/1906/05/2024 CBC (INCL UDES DIFF/ PLT) MCH 22.4 pg 27.0-3 3.0 low Not Available [facility] [address], [address], 06/05/2024 05:15:32 06/04/1906/05/2024 CBC (INCL UDES DIFF/ PLT) MCHC 28.5 g/dL 32.0-3 6.0 low For adult s, a sligh t decre ase in the calcu lated MCHC value (in the range of 30 to 32 g/dL) is most likel y not clini ziggy signi fican t; tony er, it shoul d be inter prete d with cauti on in corre latio n with other red cell joy eters and the patie nt's clini fenrie condi tion. Not Available [facility] [address], [address], 06/05/2024 05:15:32 06/04/1906/05/2024 CBC (INCL UDES DIFF/ PLT) RDW 19.8 % 11.0-1 5.0 high Not Available [address], [address], 06/05/2024 05:15:32 06/04/1906/05/2024 CBC (INCL UDES DIFF/ PLT) platelet count 148 thous and/u L 140-40 0 normal Not Available [facility] [address], [address], 06/05/2024 05:15:32 06/04/1906/05/2024 CBC (INCL UDES DIFF/ PLT) MPV fL 7.5-12 .5 Due to plate let or RBC varia bilit y in size or shape the resul t canno t be repor lynne accur ately . Not Available [facility] [place] [address] [place], [address], 06/05/2024 05:15:32 06/04/19 25 06/05/2024 CBC (INCL UDES DIFF/ PLT) absolute neutrophils 3615 cells /uL 1500-7 800 normal Not Available [facility] [address] [address] [place], [address], 06/05/2024 05:15:32 06/04/19 25 06/05/2024 CBC (INCL UDES DIFF/ PLT) absolute lymphocytes 912 cells /uL 850-39 00 normal Not Available [facility] [address], [address], 06/05/2024 05:15:32 06/04/19 25 06/05/2024 CBC (INCL UDES DIFF/ PLT) absolute monocytes 684 cells /uL 200-95 0 normal Not Available [facility] [address] [address] [place], [address], 06/05/2024 05:15:32 06/04/19 25 06/05/2024 CBC (INCL UDES DIFF/ PLT) absolute eosinophils 58 cells /uL 15-500 normal Not Available [facility] [address] [address] [place], [address], 06/05/2024 05:15:32 06/04/19 25 06/05/2024 CBC (INCL UDES DIFF/ PLT) absolute basophils 32 cells /uL 0-200 normal Not Available [facility] [address], [address], 06/05/2024 05:15:32 06/04/19 25 06/05/2024 CBC (INCL UDES DIFF/ PLT) neutrophils 68.2 % normal Not Available [address] [address] [place], [address], 06/05/2024 05:15:32 06/04/19 25 06/05/2024 CBC (INCL UDES DIFF/ PLT) lymphocytes 17.2 % normal Not Available [address], [address], 06/05/2024 05:15:32 06/04/19 25 06/05/2024 CBC (INCL UDES DIFF/ PLT) monocytes 12.9 % normal Not Available [address], [address], 06/05/2024 05:15:32 06/04/19 25 06/05/2024 CBC (INCL UDES DIFF/ PLT) eosinophils 1.1 % normal Not Available [facility] [address], [address], 06/05/2024 05:15:32 06/04/19 25 06/05/2024 CBC (INCL UDES DIFF/ PLT) basophils 0.6 % normal Not Available [address], [address], 06/05/2024 05:15:32 06/04/19 25 06/05/2024 CBC (INCL UDES DIFF/ PLT) comment(s) Revie w of perip heral smear confi burt autom ated resul ts. Revie w of the perip heral smear revea ls adequ ate numbe rs of plate lets. Not Available [address], [address], 06/05/2024 05:15:32 06/04/19 25 06/05/2024 T4, FREE T4, free 0.9 NG/dL 0.8-1. 8 normal Not Available [address], [address], 06/05/2024 05:15:33 06/04/19 25 06/05/2024 TSH TSH 2.36 mIU/L 0.40-4 .50 normal Not Available [address], [address], 06/05/2024 05:15:34 06/04/19 25 06/05/2024 HEMOG LOBIN [...] diabe demetrius for child margarita. Not Available [address] [address] [place], [address], 06/05/2024 05:15:35 06/12/1906/12/2024 CBC (INCL UDES DIFF/ PLT) white blood cell count 5.4 thous and/u L 3.8-10 .8 normal Not Available [address] [address] [place], [address], 06/12/2024 03:15:17 06/12/19 25 06/12/2024 CBC (INCL UDES DIFF/ PLT) red blood cell count 3.92 erasmo on/uL 3.80-5 .10 normal Not Available [facility] [address] [place], [address], 06/12/2024 03:15:17 06/12/19 25 06/12/2024 CBC (INCL UDES DIFF/ PLT) hemoglobin 9.2 g/dL 11.7-1 5.5 low Not Available [facility] [address] [address] [place], [address], 06/12/2024 03:15:17 06/12/19 25 06/12/2024 CBC (INCL UDES DIFF/ PLT) hematocrit 31.8 % 35.0-4 5.0 low Not Available [address], [address], 06/12/2024 03:15:17 06/12/19 25 06/12/2024 CBC (INCL UDES DIFF/ PLT) MCV 81.1 fL 80.0-1 00.0 normal Not Available [address], [address], 06/12/2024 03:15:17 06/12/1906/12/2024 CBC (INCL UDES DIFF/ PLT) MCH 23.5 pg 27.0-3 3.0 low Not Available [address], [address], 06/12/2024 03:15:17 06/12/19 25 06/12/2024 CBC (INCL UDES DIFF/ PLT) MCHC 28.9 g/dL 32.0-3 6.0 low For adult s, a sligh t decre ase in the calcu lated MCHC value (in the range of 30 to 32 g/dL) is most likel y not clini ziggy signi fican t; tony er, it shoul d be inter prete d with cauti on in corre lat n with other red cell joy eters and the patie nt's clini fernie condi tion. Not Available [address], [address], 06/12/2024 03:15:17 06/12/1906/12/2024 CBC (INCL UDES DIFF/ PLT) RDW 19.5 % 11.0-1 5.0 high Not Available [address], [address], 06/12/2024 03:15:17 03/06/06/12/2024 CBC (INCL UDES DIFF/ PLT) platelet count 150 thous and/u L 140-40 0 normal Not Available [address], [address], 06/12/2024 03:15:17 06/12/19 25 06/12/2024 CBC (INCL UDES DIFF/ PLT) MPV 11.9 fL 7.5-12 .5 normal Not Available [address], [address], 06/12/2024 03:15:17 06/12/19 25 06/12/2024 CBC (INCL UDES DIFF/ PLT) absolute neutrophils 3515 cells /uL 1500-7 800 normal Not Available [address], [address], 06/12/2024 03:15:17 06/12/19 25 06/12/2024 CBC (INCL UDES DIFF/ PLT) absolute lymphocytes 967 cells /uL 850-39 00 normal Not Available [address], [address], 06/12/2024 03:15:17 06/12/19 25 06/12/2024 CBC (INCL UDES DIFF/ PLT) absolute monocytes 594 cells /uL 200-95 0 normal Not Available [address], [address], 06/12/2024 03:15:17 06/12/1906/12/2024 CBC (INCL UDES DIFF/ PLT) absolute eosinophils 302 cells /uL 15-500 normal Not Available [address], [address], 06/12/2024 03:15:17 06/12/19 25 06/12/2024 CBC (INCL UDES DIFF/ PLT) absolute basophils 22 cells /uL 0-200 normal Not Available [address], [address], 06/12/2024 03:15:17 06/12/19 25 06/12/2024 CBC (INCL UDES DIFF/ PLT) neutrophils 65.1 % normal Not Available [address], [address], 06/12/2024 03:15:17 06/12/19 25 06/12/2024 CBC (INCL UDES DIFF/ PLT) lymphocytes 17.9 % normal Not Available [address], [address], 06/12/2024 03:15:17 06/12/19 25 06/12/2024 CBC (INCL UDES DIFF/ PLT) monocytes 11.0 % normal Not Available [address], [address], 06/12/2024 03:15:17 06/12/19 25 06/12/2024 CBC (INCL UDES DIFF/ PLT) eosinophils 5.6 % normal Not Available [address], [address], 06/12/2024 03:15:17 06/12/19 25 06/12/2024 CBC (INCL UDES DIFF/ PLT) basophils 0.4 % normal Not Available [address], [address], 06/12/2024 03:15:17 06/24/19 25 06/24/2024 CBC (INCL UDES DIFF/ PLT) white blood cell count 9.7 thous and/u L 3.8-10 .8 normal Not Available [address], [address], 06/24/2024 06:57:04 06/24/19 25 06/24/2024 CBC (INCL UDES DIFF/ PLT) red blood cell count 3.97 erasmo on/uL 3.80-5 .10 normal Not Available [address], [address], 06/24/2024 06:57:04 06/24/1906/24/2024 CBC (INCL UDES DIFF/ PLT) hemoglobin 9.3 g/dL 11.7-1 5.5 low Not Available [address], [address], 06/24/2024 06:57:04 06/24/1906/24/2024 CBC (INCL UDES DIFF/ PLT) hematocrit 31.8 % 35.0-4 5.0 low Not Available [facility] [address], [address], 06/24/2024 06:57:04 06/24/1906/24/2024 CBC (INCL UDES DIFF/ PLT) MCV 80.1 fL 80.0-1 00.0 normal Not Available [address], [address], 06/24/2024 06:57:04 06/24/1906/24/2024 CBC (INCL UDES DIFF/ PLT) MCH 23.4 pg 27.0-3 3.0 low Not Available [address], [address], 06/24/2024 06:57:04 06/24/1906/24/2024 CBC (INCL UDES DIFF/ PLT) MCHC 29.2 g/dL 32.0-3 6.0 low For adult s, a sligh t decre ase in the calcu lated MCHC value (in the range of 30 to 32 g/dL) is most likel y not clini ziggy hankins t; tony er, it shoul d be inter prete d with cauti on in [facility] lat n with other red cell joy eters and the patie nt's clini fernie condi tion. Not Available [facility] [address], [address], 06/24/2024 06:57:04 06/24/1906/24/2024 CBC (INCL UDES DIFF/ PLT) RDW 19.3 % 11.0-1 5.0 high Not Available [address], [address], 06/24/2024 06:57:04 06/24/1906/24/2024 CBC (INCL UDES DIFF/ PLT) platelet count 163 thous and/u L 140-40 0 normal Not Available [address], [address], 06/24/2024 06:57:04 06/24/1906/24/2024 CBC (INCL UDES DIFF/ PLT) MPV 10.6 fL 7.5-12 .5 normal Not Available [address], [address], 06/24/2024 06:57:04 06/24/19 25 06/24/2024 CBC (INCL UDES DIFF/ PLT) absolute neutrophils 8255 cells /uL 1500-7 800 high Not Available [address], [address], 06/24/2024 06:57:04 06/24/1906/24/2024 CBC (INCL UDES DIFF/ PLT) absolute lymphocytes 766 cells /uL 850-39 00 low Not Available [address], [address], 06/24/2024 06:57:04 06/24/1906/24/2024 CBC (INCL UDES DIFF/ PLT) absolute monocytes 631 cells /uL 200-95 0 normal Not Available [address], [address], 06/24/2024 06:57:04 06/24/19 25 06/24/2024 CBC (INCL UDES DIFF/ PLT) absolute eosinophils 19 cells /uL 15-500 normal Not Available [address], [place], [address], 06/24/2024 06:57:04 06/24/19 25 06/24/2024 CBC (INCL UDES DIFF/ PLT) absolute basophils 29 cells /uL 0-200 normal Not Available [facility] [address], [address], 06/24/2024 06:57:04 06/24/19 25 06/24/2024 CBC (INCL UDES DIFF/ PLT) neutrophils 85.1 % normal Not Available [facility] [address], [address], 06/24/2024 06:57:04 06/24/1906/24/2024 CBC (INCL UDES DIFF/ PLT) lymphocytes 7.9 % normal Not Available [facility] [address], [address], 06/24/2024 06:57:04 06/24/19 25 06/24/2024 CBC (INCL UDES DIFF/ PLT) monocytes 6.5 % normal Not Available [facility] [address], [address], 06/24/2024 06:57:04 06/24/1906/24/2024 CBC (INCL UDES DIFF/ PLT) eosinophils 0.2 % normal Not Available [facility] [address], [address], 06/24/2024 06:57:04 06/24/1906/24/2024 CBC (INCL UDES DIFF/ PLT) basophils 0.3 % normal Not Available [facility] [address], [address], 06/24/2024 06:57:04 04/27/19 25 04/27/2024 MAMMO , tio contreras, digit al, bilat eral No observ ation record ed. [address], [place], [address], 04/27/2024 17:43:35 04/29/19 25 04/27/2024 bone densi ty No observ ation record ed. [address], [place], [address], 04/29/2024 09:54:44 06/05/19 25 06/05/2024 XR, chest No observ ation record ed. [address], [place], [address], 06/06/2024 08:33:45 Result Notes None recorded. Problems Name Problem SNOMED Code Status Onset Date Resolution Date Notes Provider Name and Address Organization Details Recorded Time Renewal of prescripti on Active 2021 Not Available [facility] 3 12:45:37 Chronic obstructiv e pulmonary disease 36751176 Active 2020 Not Available [facility] 3 12:45:37 Senile osteoporos is 42684978 Active 2021 Not Available [facility] 3 12:45:37 Pure hyperchole sterolemia 635177800 Active 2020 Not Available [facility] 3 12:45:37 Low back pain 185714336 Active 2021 Not Available [facility] 3 12:45:37 Recurrent dislocatio n of shoulder region 96388447 Active Not Available [employer] 3 12:45:37 Enthesopat hy of hip region 05119125 Active Not Available [employer] 3 12:45:37 Type 2 diabetes mellitus without complicati on 438082566 Active 2020 Not Available [facility] 3 12:45:37 Vitamin D deficiency 84285733 Active 2021 Not Available [facility] 3 12:45:38 Disorder of rotator cuff 509033927 Active Not Available [facility] 3 12:45:38 History of polyp of colon 963548206 Active 03/16/ 2021 Not Available [facility] 3 12:45:38 Disorder of bursa of shoulder region 00674966 Active Not Available [facility] 3 12:45:38 Essential hypertensi on 84201335 Active 2020 Not Available [facility] 3 12:45:38 Pulmonary hypertensi on 25879424 Active 2021 Not Available [facility] 3 12:45:38 Chronic back pain 328244882 Active 2022 Violette Dawn CMA null, [place] [facility] 3 14:39:22 Obese class I 5802171376112 07 Active 2022 Maria Luisa Rendon MD [address], [address], [place], [address] , [facility] 3 15:47:21 Depressive disorder 57898296 Active 2023 Violette Dawn CMA null, [place] [facility] 4 17:35:48 Trigger finger of right hand 5545319768174 9101 Active 2024 Fariba Valdez null, [place] [facility] 5 15:49:08 Abdominal pain 22011615 Active 2024 Maria Luisa Rendon MD [address], [address], [place], [address] , [facility] 5 15:37:51 Type 2 diabetes mellitus 32965840 Active 2024 Fariba Valdez null, [place] [facility] 5 15:48:29 Gastrointe stinal hemorrhage 42077143 Active 2024 Maria Luisa Rendon MD [address], [place], [address] , [place] [facility] 5 15:38:18 Anemia 899576514 Active 2024 Violette Dawn CMA null, [place] [facility] 5 14:17:58 Nausea and vomiting 02094480 Active 2024 Maria Luisa Rendon MD [address], [place], [address] , [place] [facility] [employer] 11:49:31 Abnormal weight loss 726778586 Active 2024 Violette Dawn CMA null, [place] [facility] [employer] 15:05:53 Problem Notes None recorded. Procedures Surgical History Date Name Laterality Status Provider Name and Address Organization Details Recorded Time 11/21/19 Medicare Wellness CPT Code, subsequent completed Candelaria Pino RN [facility] [employer] [facility] 11/21/2023 16:10:12 09/30/19 Most Recent Bone Density completed Not Available [facility] 06/06/2022 12:45:05 04/12/19 Date of Last Colonoscopy completed Not Available [facility] 06/06/2022 12:45:05 Imaging Results Imaging Date Name Status LastModified by Organiz ation Details LastModified Time 04/27/2024 MAMMO, screening, digital, bilateral completed [address], [address], 04/27/2024 17:43:35 04/27/2024 bone density completed [address] [place] [address], [address], 04/29/2024 09:54:44 06/05/2024 XR, chest completed [address] [place] [address], [address], 06/06/2024 08:33:45 Procedure Notes None recorded. Medical Equipment None Reported. Allergies Allergen ID Allergen Name Allergen Category Reaction Reaction Severity Criticality Documentation Date Start Date Code Code System Note Provider Name and Address Organization Details Recorded Time 40155 Iodinated contrast media (substanc e) medicatio n Not available Not available Not available 06/06/2022 63618 2003 SNOMED Not Available [facility] 12:47:59 Medications Name Sig Start Date [...] Not Available Not Available No t Available ondansetro n 4 mg disintegra ting tablet DISSOLVE 2 TABLETS ON THE TONGUE TWICE DAILY active Not Available Not Available No t Available sertraline 50 mg tablet TAKE 1 TABLET BY MOUTH EVERY DAY active Not Available Not Available No t Available TriLyte With Flavor Packets 420 gram oral solution 10/28 completed Not Available Not Available Not Available Feosol 325 mg (65 mg iron) tablet Take 1 tablet twice a day by oral route. 2024 active Not Available Not Available Not Avai lable [facility] Hydrocodon e/APAP 10/28 completed Not Available Not Available Not Available Fish Oil 07/04 completed 75467 mg once a day Not Available Not [...] Available No t Available FreeStyle [place] use as directed for checking blood sugars active Not Available Not Available No t Available Vitals Date Recorded Body height Body mass index (BMI) Body weight Heart rate Body temperature Oxygen saturation Oxygen saturation in Arterial blood by Pulse oximetry Systolic blood pressure Diastolic blood pressure Provider Name and Address Organization Details Last Updated DateTime 4 149.86 cm 33.1 kg/m2 51514.1 5 g 90 /min 97 [degF] 96 % 96 % 120 mm[Hg] 60 mm[Hg] [facility] 4 15:54:26 Date Recorded Body height Body mass index (BMI) Body weight Heart rate Body temperature Oxygen saturation Oxygen saturation in Arterial blood by Pulse oximetry Systolic blood pressure Diastolic blood pressure Provider Name and Address Organization Details Last Updated DateTime 4 149.86 cm 32.1 kg/m2 46075.1 9 g 102 /min 97.3 [degF] 97 % 97 % 132 mm[Hg] 70 mm[Hg] [facility] 4 16:00:50 Date Recorded Pain severity - 0-10 verbal numeric rating [Score] - Reported Provider Name and Address Organization Details Last Updated DateTime 11/21/2023 0 Candelaria Pino RN [facility] 11/21/2023 16:10:30 Date Recorded Body height Body mass index (BMI) Body weight Heart rate Body temperature Oxygen saturation Oxygen saturation in Arterial blood by Pulse oximetry Systolic blood pressure Diastolic blood pressure Provider Name and Address Organization Details Last Updated DateTime 5 149.86 cm 30.3 kg/m2 13038.8 6 g 69 /min 97 [degF] 96 % 96 % 118 mm[Hg] 60 mm[Hg] [facility] 5 15:23:00 Date Recorded Body height Body mass index (BMI) Body weight Heart rate Body temperature Oxygen saturation Oxygen saturation in Arterial blood by Pulse oximetry Systolic blood pressure Diastolic blood pressure Provider Name and Address Organization Details Last Updated DateTime 5 149.86 cm 29.7 kg/m2 12441.0 8 g 77 /min 98.2 [degF] 95 % 95 % 122 mm[Hg] 68 mm[Hg] Susie Davidmy [facility] 5 15:15:25 Date Recorded Body height Body mass index (BMI) Body weight Heart rate Body temperature Oxygen saturation Oxygen saturation in Arterial blood by Pulse oximetry Systolic blood pressure Diastolic blood pressure Provider Name and Address Organization Details Last Updated DateTime 5 149.86 cm 29.1 kg/m2 78309.3 g 97 /min 97 [degF] 94 % 94 % 142 mm[Hg] 70 mm[Hg] Susie Nicole [facility] 5 15:22:16 Social History Question Answer Notes LastModified by Organization Details LastModified Time Tobacco Smoking Status Former Smoker Not Available [facility] 06/06/2022 12:45:02 Do You Have An Advance Directive? Yes [id number] Information not available 06/06/2022 What Is Your Level Of Alcohol Consumption? None [id number] Information not available 06/06/2022 Are You Blind Or Do You Have Difficulty Seeing? No [id number] Information not available 06/06/2022 Are You Deaf Or Do You Have Serious Difficulty Hearing? No [id number] Information not available 06/06/2022 What Type Of Diet Are You Following? REGULAR MIGRATION.[id number] [id number] Information not available 06/06/2022 Have There Been Any Changes To Your Family Or Social Situation? Yes Recently Lost Her Spouse [email or web address] Information not available 11/21/2023 What Is The Fluoride Status Of Your Home? Fluoridated [id number] Information not available 06/06/2022 When Did You Quit Smoking? 17+yearssincelastc igarette MIGRATION.[id number] [id number] Information not available 06/06/2022 Are There Any Guns Present In Your Home? No MIGRATION.0301 [id number] Information not available 06/06/2022 Do You Use Insect Repellent Routinely? No [email or web address] Information not available 11/21/2023 [facility] M[facility]01 [id number] Information not available 06/06/2022 Are You Able To Care For Yourself? Yes [email or web address] Information not available 11/21/2023 Are You Blind Or Do Yo Have Difficulty Seeing? No Information not available 11/21/2023 Are You Deaf Or Do You Have Serious Difficulty Hearing? No [email or web address] Information not available 11/21/2023 Live Alone Of With Others? Alone [email or web address] Information not available 11/21/2023 Are You Following A Low Salt Diet? No MIGRATION.0301 [id number] Information not available 06/06/2022 Do You Have A Medical Power Of Screener And Blender Operator? Yes MIGRATION.0301 [id number] Information not available 06/06/2022 What Was The Date Of Your Most Recent Tobacco Screening? 11/21/2023 [email or web address] Information not available 11/21/2023 Do You Have Any Pets? No [email or web address] Information not available 11/21/2023 What Is Your Relationship Status? [email or web address] Information not available 11/21/2023 Do You Use Your Seat Belt Or Car Seat Routinely? Yes MIGRATION.0301 [id number] Information not available 06/06/2022 Do You Have Smoke And Carbon Monoxide Detectors In Your Home? Yes MIGRATION.0301 399583 Information not available 06/06/2022 At What Age Did You Start Smoking Tobacco? 8 MIGRATION.0301 [id number] Information not available 06/06/2022 Do You Use Any Illicit Or Recreational Drugs? No MIGRATION.0301 499955 Information not available 06/06/2022 Do You Use Sunscreen Routinely? No [email or web address] Information not available 11/21/2023 Has Tobacco Cessation Counseling Been Provided? No MIGRATION.0301 639263 Information not available 06/06/2022 Have You Recently Traveled Abroad? No [email or web address] Information not available 11/21/2023 Do You Have Any Dietary Restrictions? Yes MIGRATION.0301 [id number] Information not available 06/06/2022 Sex: Unknown Functional Status Question Answer Note LastModified by Organizat ion Details LastModified Time Do you have difficulty walking or climbing stairs? Yes MIGRATION.525265 2831 Information not available 06/06/2022 Do you have transportation difficulties? No MIGRATION.127587 2412 Information not available 06/06/2022 Are you able to walk? YESASSIST uses a cane MIGRATION.964025 6507 Information not available 06/06/2022 Do you have difficulty doing errands alone? No [email or web address] Information not available 11/21/2023 Are you able to care for yourself? Yes MIGRATION.237073 0027 Information not available 06/06/2022 Do you have difficulty dressing or bathing? No MIGRATION.217555 3519 Information not available 06/06/2022 What is your exercise level? None MIGRATION.547541 7344 Information not available 06/06/2022 Mental Status Question Answer Note LastModified by Organizat ion Details LastModified Time Do you have difficulty concentrating, remembering or making decisions? No MIGRATION.[id number] 6 Information not available 06/06/2022 Family History [...] ARTERY DISEASE (CAD) N ADDICTION CONCERNS N Impotence N ENDOMETRIOSIS [...] APNEA N CHICKENPOX N INFECTIOUS DISEASE N PROSTATE N HEART ARRHYTHMIA N INSOMNIA N HIGH CHOLESTEROL / HYPERLIPIDEMIA Y HYPERTHYROIDISM N EYE PROBLEMS N NEUROLOGICAL PROBLEMS Y EDEMA N CHRONIC PAIN SYNDROME N HYPOTHYROIDISM N CONSTIPATION N CAROTID BLOCKAGE N BACK / NECK PROBLEMS N HAVE YOU BEEN HOSPITALIZED OR SEEN IN [facility] IN THE PAST YEAR ? N [...] 3 completed Maria Luisa Rendon MD [address] [address], [place], [address], [facility] [employer] 03/29/2023 16:10:02 SARS-COV-2 (COVID-19) vaccine, UNSPECIFIED 1 completed Not Available [facility] 06/06/2022 12:47:55 SARS-COV-2 (COVID-19) vaccine, UNSPECIFIED 1 completed Not Available [facility] 06/06/2022 12:47:56 Pneumococcal conjugate PCV 13 0 completed Not Available [facility] 06/06/2022 12:47:56 pneumococcal polysaccharide PPV23 7 completed Not Available [facility] 06/06/2022 12:47:56 Influenza, high-dose, quadrivalent, PF 1 completed Not Available [facility] 06/06/2022 12:47:56 Past Encounters Encounter ID Performer Location Encounter Start Date Encounter Closed Date Diagnosis/Indication Diagnosis SNOMED-CT Code Diagnosis ICD10 Code Diagnosis Note [id number] [facility] Internal [facility] [place] [address] 06/21/2020 00:00:00 06/21/2020 15:56:12 [id number] [facility] [place] [address] 10/28/2020 00:00:00 10/28/2020 16:59:34 [id number] [facility] Internal Med [place] [address] [address] 02/17/2021 00:00:00 02/17/2021 16:20:26 [id number] [facility] Internal Med [place] [address] [place] [address] y , [place] [address] 07/04/2021 00:00:00 07/04/2021 16:03:08 [id number] [facility] Internal Med [place] [address] [place] [address] y , [place] [address] 12/01/2021 00:00:00 12/01/2021 15:45:44 [id number] [facility] Internal [facility] [place] [address] [place] [address] y , [place] [address] 04/06/2022 00:00:00 04/06/2022 15:32:43 [id number] Maria Luisa Rendon MD [facility] Internal Med [place] [address] [place] [address] y , [place] [address] 08/03/2022 15:12:52 08/03/2022 16:09:36 Chronic obstructive pulmonary disease 34260398 J44.9 Essential hypertension 78094976 I10 Pure hypercholesterolemia 173023609 E78.00 Type 2 kim betes mellitus without complication 665944847 E11.9 [id number] Maria Luisa Rendon MD [facility] Internal Med [place] [address] [place] [address] y , [place] [address] 11/30/2022 15:16:19 11/30/2022 16:02:36 Essential hypertension 31297255 I10 Pure hypercholesterolemia 795154912 E78.00 Type 2 kim betes mellitus without complication 042261820 E11.9 Chronic ob structive pulmonary disease 91915678 J44.9 Obese class I 2247822384 40114 E66.9 [id number] Maria Luisa Rendon MD [facility] Internal Med [place] [address] [place] [address] y , [place] [address] 03/29/2023 15:37:04 03/29/2023 16:18:08 Administration of influenza vaccine 91877367 Z23 Chronic ob structive pulmonary disease 72144347 J44.9 Pure hypercholesterolemia 535570647 E78.00 Type 2 kim betes mellitus without complication 417286137 E11.9 Essential hypertension 40845925 I10 [id number] Maria Luisa Rendon MD [facility] Internal Med [place] [address] [facility] y , [place] [address] 07/26/2023 15:53:47 07/26/2023 16:24:13 Essential hypertension 69269911 I10 Pure hypercholesterolemia 602596615 E78.00 Chronic ob structive pulmonary disease 25150047 J44.9 Chronic back pain 404006 002 M54.9 Type 2 kim betes mellitus without complication 892163369 E11.9 [id number] Maria Luisa Rendon MD [facility] Internal Med [place] [address] [facility] [address] , [place] [address] 11/21/2023 15:53:50 11/21/2023 16:42:52 Adult health examination 298267734 Z00.00 Screening for disorder 989896111 Z13.9 Chronic ob structive pulmonary disease 51770448 J44.9 Pure hypercholesterolemia 670742024 E78.00 Essential hypertension 60664290 I10 Type 2 kim betes mellitus without complication 804504180 E11.9 Obese class I 7892820554 22683 E66.9 [id number] Maria Luisa Rendon MD [facility] Primary Care [facility] [address] [place] [address] 04/23/2024 15:09:25 04/23/2024 15:51:38 Chronic obstructive pulmonary disease 81101300 J44.9 Essential hypertension 88018561 I10 Pure hypercholesterolemia 398678832 E78.00 Type 2 kim betes mellitus without complication 092965460 E11.9 [id number] Maria Luisa Rendon MD [facility] [address] [place] [address] 06/04/2024 14:52:23 06/04/2024 15:57:49 Abdominal pain 00093587 R10.9 Chronic ob structive pulmonary disease 02510183 J44.9 Essential hypertension 02308097 I10 Pure hypercholesterolemia 841812531 E78.00 Type 2 kim betes mellitus without complication 152087342 E11.9 [id number] Maria Luisa Rendon MD [facility] [address] [place] [address] 06/11/2024 14:51:04 06/11/2024 15:56:18 Gastrointestinal hemorrhage 44020993 K92.2 Essential hypertension 30481085 I10 Chronic ob structive pulmonary disease 68785294 J44.9 Type 2 kim betes mellitus 55294836 E11.29 Health Concerns Section Related Observation LastModified by Organization Detai ls LastModified Time None Recorded Concern Status LastModified by Organization Details LastModified Time None Recorded Advance Directives Directive Y: Payers Encounter Date Sequence Insurance Name Policy Number Policy Anderson Covered Member ID Anderson Member ID Guarantor Name 07/26/2023 1 [facility] - [employer] - [employer] - MEDICARE COMPLETE PLAN 2 (MEDICARE REPLACEMENT HMO) [id number] Tyra Justice [id number] Tyra Justice 11/21/2023 1 [facility] - [employer] - [employer] - MEDICARE COMPLETE PLAN 2 (MEDICARE REPLACEMENT HMO) [id number] Tyra Justice [id number] Tyra Justice 04/23/2024 1 [facility] - [employer] - [employer] - MEDICARE COMPLETE PLAN 2 (MEDICARE REPLACEMENT HMO) [id number] Tyra Justice [id number] Tyra Justice 06/04/2024 1 [facility] - [employer] - [employer] - MEDICARE COMPLETE PLAN 2 (MEDICARE REPLACEMENT HMO) [id number] Tyra Justice [id number] Tyra Justice 06/11/2024 1 [facility] - [employer] - [employer] - MEDICARE COMPLETE PLAN 2 (MEDICARE REPLACEMENT HMO) [id number] Tyra Justice [id number] Tyra Justice Notes Date Note Type Note Provider Name and Address Organization Details Recorded Time 07/26/19 24 text/htm l Patient Name: Tyra HutchinsronnieDate Of Service: Saturday ( 07.26.2023 ): 1940 [...] Adverse Drug Reactions ReviewedAvandia Swelling Vaccination and Uwyofoiuujmk8314-33 Rsigxbyrg4680-43 Covid Ncbovh4411-36 Prevnar 13 Qp6963-69 Pneumovax Surgical Jesphzt7363-20 Left Rotator Cuff Fxziya4948-84 Sebacesou vuma6665-95 Rmpcizmfxe9890-12 Rt. Breast Prhxtw3056-62 Ogmabmatcq8201-19 Lkgubfxgnpiildrp2230-47 Kzuzuboqruwbpz0654-00 [facility] LPS2467-93 Easincgekdxaf8297-32 Lt. Hip Surgery Preventative Acidvth7601/22/2023 ALBUMIN 4.4 G/DL N1 MICRO ALBUMIN 17.9 MG/DL N1 HAIC 6.9 % OF TOTAL HGB H009/29/2021 MAMMOGRAM / DEXA SCAN04/12/2021 COLONOSCOPY (5 YEARS) ZMJWFPEGFMLDI36/07/2009 UPPER ENDOSCOPY Social HistoryQuit smoking in 1990. Smoked up to 4 packs per day at times was at 2.5 packs daily when she quit. Total pack years approximately 50. Does drink socially. Currently retired. Family HistoryMother 60 y/o from CA of pancreasFather at 80 from CA of lung, ASHD, [place] and aneurysm.Three brothers. One living alcoholic(1) CAD(2), DM(1)Two sisters one has Ca of colon. One CAD TEST RESULT RANGE UNITSHEMOGLOBIN A1C Date: 01/22/2023HEMOGLOBIN A1C 6.9 <5.7 % OF TOTAL HGBCBC (INCLUDES DIFF/PLT) Date: 01/22/2023WHITE BLOOD CELL COUNT 6.9 3.8-10.8 THOUSAND/ULHEMOGLOBIN 11.3 11.7-15.5 G/DLHEMATOCRIT 35.0 35.0-45.0 %PLATELET COUNT 159 140-400 THOUSAND/ULLIPID PANEL, STANDARD Date: 01/22/2023HOLESTEROL, TOTAL 132 <200 MG/DLHDL CHOLESTEROL 59 > OR = 50 MG/DLTRIGLYCERIDES 110 <150 MG/DLLDL-CHOLESTEROL 53 MG/DL (CALC)COMPREHENSIVE METABOLIC PANEL, PLASMA Date: 01/22/2023SODIUM 140 135-146 MMOL/LPOTASSIUM 3.9 3.4-4.8 MMOL/LGLUCOSE 109 65-99 MG/DLUREA NITROGEN (BUN) 13 7-25 MG/DLCREATININE 0.79 0.60-0.95 MG/DLEGFR 75 > OR = 60 ML/MIN/1.39J9ZFETGJRKN, TOTAL 0.5 0.2-1.2 MG/DLALKALINE PHOSPHATASE 97 37-153 U/LAST 17 10-35 U/LALT 12 6-29 U/L Maria Luisa Rendon MD [address] [facility], [facility] [address], [place], [address], [place] [facility] 07/26/2023 16:16:44 11/21/19 24 text/htm l Patient Name: Tyra Blankhumberto Of Service: November ( 11.21.2023 ): 1940 [...] lesions. The last HAIC was done by commissary production supervisor. Average blood sugars 125-150 mg%. Checking sugars [...] offered to be evaluated and instructed by captain room service on weight loss diet. Active Medication ListAmaryl [...] Adverse Drug Reactions ReviewedAvandia Swelling Vaccination and Updiwcmzwxlk6290-37 Wkhutvglc2732-15 Covid Smiyfj9392-70 Prevnar 13 Ef4569-35 Pneumovax Surgical Vipsdtg0328-58 Left Rotator Cuff Kszwar3947-35 Sebacesou pklj2225-66 Olfivcsanv5697-97 Rt. Breast Zmcykh4959-36 Dcvhlfczjx4935-43 Mxbqeyezlgwzjlnw9348-18 Sqyplotkdizmow4073-05 [facility] IFS4415-32 Qvevfkiubpobv7017-68 Lt. Hip Surgery Preventative Testing( ) 08/30/2023 [...] at 81 from CA of lung, ASHD, [place] and aneurysm.Three brothers. One living alcoholic(1) CAD(2), DM(1)Two sisters one has Ca of colon. One CAD Maria Luisa Rendon MD [address] [place] [address], [address], [facility] 11/21/2023 16:34:44 04/23/19 25 text/htm l Patient Name: Tyra Blankte Of Service: April ( 04.23.2024 ): 1940 [...] non healing lesions. [facility] Calculated MB mg%. CGM: No. [...] Reactions ReviewedAvandia Swelling Vaccination and Immunization( ) 2007-01 PNEUMOVAX(X) 2023-03 INFLUENZA( ) 2019-06 PREVNAR 13 GC(X) 2020-07 COVT4 Media Surgical Pocppzj5923-89 Left Rotator Cuff Vuozio6844-32 Sebacesou pbsc7884-45 Zmedupjvil0697-56 Rt. Breast Reqptq8419-44 Olhenpqlhu9204-15 Vzelusgmsosaupyb1028-66 Ajchpmfooiyyui8863-24 [facility] QWI9731-43 Creedtonsbgku7580-59 Lt. Hip Surgery Preventative Testing( ) 01/16/2024 [...] at 81 from CA of lung, ASHD, [place] and aneurysm.Three brothers. One living alcoholic(1) CAD(2), DM(1)Two sisters one has Ca of colon. One CAD Maria Luisa Rendon MD [address], [place], [address], [place] [facility] 04/23/2024 15:35:44 06/04/19 25 text/htm l Patient Name: Tyra Evans Of Service: May ( 06.04.2024 ): 1940 [...] Reactions ReviewedAvandia Swelling Vaccination and Immunization( ) 2007-01 PNEUMOVAX( ) 2024-03 INFLUENZA( ) 2019- PREVNAR 13 GC(X) 2020-07 COVID [employer]KA [employer] Eglapxh0679-69 Left Rotator Cuff Isgcxx0673-02 Sebacesou opsb0373-70 Aiknhefrtq5777-73 Rt. Breast Duwzkg6138-79 Mcndgsvrgz2580-98 Wqqvbtdfhiudtksp0765-40 Vgfzqxnbmgsqkj7102-00 [facility] RDA6527-99 Gauvqsnuqucnt8290-34 Lt. Hip Surgery Preventative Testing( ) 04/27/2024 [...] at 81 from CA of lung, ASHD, [place] and aneurysm.Three brothers. One living alcoholic(1) CAD(2), DM(1)Two sisters one has Ca of colon. One CAD Maria Luisa Rendon MD [address] [facility], [facility] [address], [place], [address], [facility] 06/04/2024 15:45:35 06/12/19 25 text/htm l Patient Name: Tyra Blankte Of Service: June ( 06.11.2024 ): 1940 Age: 83 There has been approximately a 3 lb weight loss since 06/04/2024. This represents approximately a 2.0% change in weight. Weight change attributable to lifestyle changes. Vital Signs:Blood Pressure: Sitting Rt. Arm 142/70Pulse: Sitting 97 /min and RegularRespiratory Rate: 16Height 59 in or 1.5 mWeight 144 lb or 65.3 kgBMI 29.1Temperature: 97 F or 36.1 CPulse Oximetry: 94 % at rest on no oxygen Chief Complaint: Addressed in HPI Problems or conditions discussed in the HPI were the only ones reviewed during the encounter.Only social and family history addressed in the HPI were reviewed during this encounter. Attendant(s): granddaughterConstitutional and Systemic Symptoms:none Medication Reconciliation: from medication list. Yordukvxdje59-90-7676: Colonoscopy diverticuli noted in the left colon. Terminal ileum and colon were examined and were normal. Single 4 mm polyp was observed in the transverse colon. Mild rectal prolapse a few small size internal hemorrhoids are noted.06-08-2024: upper endoscopy hiatus hernia. Gastric and esophageal mucosa appeared to be normal multiple biopsies taken. No AVM or evidence of celiac sprue. History of Present Illness #1. Recent episode of gastrointestinal hemorrhaging source etiology uncertain had an upper and lower endoscopy which failed to disclose any specific etiology. Does have a capsule video capsule scheduled in the next several weeks. Denies any history of any other systemic symptoms with the exception of some generalized shortness of breath and fatigue which likely a combination of the persistent anemia as well as a chronic obstructive lung disease.: #2. Essential Hypertension: Stage: Stage I Interval [...] and Lisinopril and Metoprolol Succinate Er. #3. COPD: Hx of Emphysema currently stable. There has been some decrease in exercise tolerance an shortness of breath. No change in sputum production, color or consistency. No fever, chills, weight loss or other constitutional symptoms. Gold Scale: Moderate. MRC Scale: only strenuous activity. Smoking: not currently smoking Current medications: Proair Hfa and Theodur Using nebulizer Treatments: No. Uses does not use supplemental oxygen. Will give a sample some Breztri two puffs twice daily see there is any improvement in her breathing mechanics. Will come off the Elia.#4. Type 2 diabetes clinically stable currently taking metformin, sulfonylureas and insulin. Last hemoglobin A1c just done in on June 04 was 6.7. Active Medication ListAmaryl 4 MG (TABLET - [...] Reactions ReviewedAvandia Swelling Vaccination and Immunization( ) 2007-01 PNEUMOVAX( ) 2024-03 INFLUENZA( ) 2019-06 PREVNAR 13 GC(X) 2020-07 COVID [facility]KA [employer] Cthwwcg2561-28 Left Rotator Cuff Fhsyfp1740-65 Sebacesou hyrl8135-74 Keltjwdjxj3880-40 Rt. Breast Gbydyh1329-67 Sishlqlxcs9779-56 Xmbobvzcjddkpvyy7680-53 Hrxhyemurocxzf1661-13 [facility] BGK3702-18 Rglsqqkwreojz6352-95 Lt. Hip Surgery Preventative Testing( ) 06/11/2024 Colonoscopy( ) 06/08/2024 Upper Endoscopy 06/08/2062( ) 06/04/2024 Albumin 4.1 G/DL N( ) 06/04/2024 HAIC 6.7 % OF TOTAL HGB H( ) 04/27/2024 Mammogram( ) 04/27/2024 DEXA Scan 04/27/2026( ) 08/30/2023 Micro Albumin 6.3 MG/DL N( ) 05/31/2017 Ophthalmology Social HistoryQuit smoking in 1990. Smoked up to 4 packs per day at times was at 2.5 packs daily when she quit. Total pack years approximately 50. Does drink socially. Currently retired. Family HistoryMother 60 y/o from CA of pancreasFather at 80 from CA of lung, ASHD, [place] and aneurysm.Three brothers. One living alcoholic(1) CAD(2), DM(1)Two sisters one has Ca of colon. One CAD Maria Luisa Rendon MD [address] [facility], [facility] [address], [place], [address], [place] [facility] 06/11/2024 15:48:40 OBGyn Episode No OBEpisode recorded.
--- OUTSIDE RECORDS SUMMARY | 2024-06-29 06:01 | XMS_ITS | Continuity of Care Document ---
Author Organization [facility] Address [address] [place] [address] [facility] [address] [place] [address] Phone Care Team Providers Care Rail Car Repairer Name Role Phone Rian Santizo Unavailable Unavailable Procedures Procedure Date Eye Exam, New Patient Refraction Advance Directives Directive Yes / No Effective Date File Name No Information Encounters Encounter Description Practice Location Reason(s) For Visit Diagnoses Date Provider Providers Copied on Encounter [facility], [address], [place], [place], [id number], [place] tel:[phone] [facility] No Information [address] [facility] [address], [address], [place]. tel:[phone] Family History Family Member Type Diagnosis Age [...]
--- NOTE | 2024-06-29 06:44 | SUR.OPER ---
Patient brought to GI Lab. Instructions for patient undergoing Capsule Endoscopy reviewed with patient. Consent form signed. Sensor array applied to patient's abdomen and connected to recorded. Patient swallowed capsule with 1 1/2 cups of water infused with Simethicone. Patient instructed they may have clear liquids at 0830 this AM and eat or drink at 1030 this AM. Patient instructed to return to GI Lab at 1500 this afternoon for removal of recording device and to call [phone] or to return to the hospital if any nausea and vomiting or abdominal pain is experienced.
--- NOTE | 2024-06-30 07:03 | SUR.PHASEII ---
Patient returned to the GI Lab at 1430 for recorder box removal. Patient voiced no complaints. States they have understanding of instructions. Patient left ambulatory.
== END 2024-06-29 05:58 | disposition home or self-care (01) ==
LOC: ANHENDO 05:58
PROVIDERS: PCP Internal Medicine; Referring Provider Internal Medicine Gastroenterology; Visit Provider Internal Medicine Gastroenterology
PROC: 0DJ07ZZ Inspection of Upper Intestinal Tract, Via Natural or Artificial Opening (ICD-10-PCS; CPT 91110; principal; 2024-06-29 07:00)
DX: Z01.818 Encounter for other preprocedural examination (principal); D64.9 Anemia, unspecified
CPT/HCPCS: 91110

== ENCOUNTER 2024-06-30 16:07 | Outpatient (CLI) | payer MEDICARE, SELFPAY ==
--- NOTE | ~2024-06-30 | CT_ITS ---
EXAMINATION: CT chest abdomen pelvis wo con DATE: 06/30/2024 16:38 INDICATION: Abdominal pain TECHNIQUE: Computed tomography (CT) of the chest, abdomen, and pelvis was performed without intraveno us contrast. Automated exposure control and iterative reconstruction technique were employed. The dos e-length product was 483.34 mGy-cm. COMPARISON: None FINDINGS: CHEST CT: Discoid atelectasis at the lingula. A few scattered small calcified pulmonary nodule along with calci te mediastinal lymph nodes consistent with old granulomatous disease. There are also a few scattered bilateral <3 mm noncalcified pulmonary nodules. No pneumonia, pulmonary edema or pleural effusion. He art size is normal. Atherosclerotic coronary artery calcification. Small pericardial effusion. Thorac ic aorta normal in caliber. No pathologically enlarged thoracic lymphadenopathy. Chronic mild T12 com pression fracture. Lucent hemangioma with thickened internal trabecula pattern at T4. There are also bridging osteophytes at multiple levels consistent with diffuse idiopathic skeletal hyperostosis (DIS H). ABDOMEN/PELVIS CT: Small amount of pneumobilia likely related to prior cholecystectomy and hysterectomy with surgical cl ips at the gallbladder fossa. Several splenic calcification consistent with old granulomatous disease . 1.3 cm low-attenuation left adrenal adenoma. Pancreas and right adrenal gland and right kidney are normal. 1.3 cm nonobstructing stone at the left renal pelvis with no hydronephrosis. There are some i nflammatory stranding in the fat along side the renal sinus which may be related to the renal stone b ut could not exclude ascending urinary tract infection. Small fat-containing umbilical hernia. There is a metallic density at the tip the cecum which appears intraluminal suggesting an ingested foreign body. The appendix is not visualized. No pericecal inflammatory change to suggest acute appendicitis. No bowel obstruction. There are multiple diverticula along the descending and sigmoid colon with abida e inflammatory stranding and haziness to the fat at the junction of the descending and sigmoid colon consistent with diverticulitis. No abscess or free intraperitoneal gas or fluid. Bladder is normal. T he uterus is not identified and has likely been surgically resected. No pathologically enlarged abdom inal or pelvic lymphadenopathy. Severe lumbar spondylosis. IMPRESSION: 1. Radiographically uncomplicated diverticulitis. 2. 1.3 cm nonobstructing stone at left renal pelvis was haziness to the surrounding fat which could b e due to chronic inflammation related to the stone but would correlate with urinalysis to exclude asc ending urinary tract infection. 3. Metallic density at the tip the cecum which appears intraluminal, potentially an ingested foreign body. 4. A few <3 mm bilateral pulmonary nodules likely sequela of old granulomatous disease. If the patien t is low risk for lung cancer, no follow-up is needed. If the patient is high risk (i.e., history of smoking or asbestos or significant radiation exposure), optional follow-up chest CT could be consider ed at 12 months. Reviewed, dictated and finalized at location B. IMPRESSION: 1. Radiographically uncomplicated diverticulitis. 2. 1.3 cm nonobstructing stone at left renal pelvis was haziness to the surroun ding fat which could be due to chronic inflammation related to the stone but wo uld correlate with urinalysis to exclude ascending urinary tract infection. 3. Metallic density at the tip the cecum which appears intraluminal, potentiall y an ingested foreign body. 4. A few <3 mm bilateral pulmonary nodules likely sequela of old granulomatous disease. If the patient is low risk for lung cancer, no follow-up is needed. If the patient is high risk (i.e., history of smoking or asbestos or significant radiation exposure), optional follow-up chest CT could be considered at 12 nai hs.
--- OUTSIDE RECORDS SUMMARY | 2024-06-30 18:29 | XMS_ITS | Referral Summary ---
Author Organization [facility] Address [address] [place] [address] Care Team Providers Care Insulation Nozzleman Name Role Phone Dain Rendon MD Primary Care Provider Encounters Date Type Department Care Team Description 05/13/2024 2:00 PM [employer] Ancillary Procedure [facility] Medical [facility] Cardiology [address] [facility] [address] [place] [address] ESPINO (dyspnea on exertion); Hypertension [...] on file Legal Sex Female 12:27 AM [employer] Gender Identity Not on file Sexual Orientation Not on file Last Filed Vital Signs Vital Sign Reading Time Taken Comments Blood Pressure 136/60 03/18/2024 2:12 PM [employer] Pulse 75 03/18/2024 2:12 PM [employer] Temperature - - Respiratory Rate - - Oxygen Saturation 97% 03/18/2024 2:12 PM [employer] Inhaled Oxygen Concentration - - Weight 68.9 kg (152 lb) 03/18/2024 2:12 PM [employer] Height 149.9 cm (4' 11 ) 03/18/2024 2:12 PM [employer] Body Mass Index 30.7 03/18/2024 2:12 PM [employer] Plan of Treatment Not on file Procedures Procedure Name Priority Date/Time Associated Diagnosis Comments TRANSTHORACIC ECHO (TTE) COMPLETE W DOPPLER/CF WO CONTRAST Routine 05/13/2024 2:34 PM [employer] ESPINO (dyspnea on exertion) Hypertension associated with diabetes (HCC) SERUM LIPID PANEL Routine 11/09/2015 11: 10 PM CDT from Last 3 Months or Most Recently Relevant to Health Maintenance Results * TRANSTHORACIC ECHO (TTE) COMPLETE W DOPPLER/CF WO CONTRAST (05/13/2024 2:34 PM [employer]) LV EF % CONS SCIMAGE Anatomical Region Laterality Modality Ultrasound 05/13/2024 1:58 PM [employer] Narrative 05/13/2024 3:01 PM [employer] [facility] Medical Group Cardiology [address] [facility] [place] [address] [id number] [address] [facility] [address] [place] [address], [place] [address] P:[phone] P:[phone] Echocardiographic Report Patient Name: LULA TOLEDO : 1940 Study Date: 05/13/2024 1:58:54 PM Gender: F Tech: Location: [place] Ref Provider: JEANNETTE OWENS Height(Cm): 150 BSA: [...] FINDINGS: Interpretation Site: Exam was interpreted at [facility]. Left Ventricle: Normal left ventricular size. [...] jet. Electronically Signed By: Jeannette Owens MD, [facility] 05/13/2024 3:00:56 PM [employer] Procedure Note Jeannette Owens MD - 05/13/2024 [facility] Medical Group Cardiology [address] [facility] [address], [place] [address] [address] [facility] [address], [place] [address] P:[phone] P:[phone] Echocardiographic Report Patient Name: LULA TOLEDO : 1940 Study Date: 05/13/2024 1:58:54 PM Gender: F Tech: Location: [place] Ref Provider: JEANNETTE OWENS Height(Cm): 150 BSA: [...] FINDINGS: Interpretation Site: Exam was interpreted at [facility]. Left Ventricle: Normal left ventricular size. [...] jet. Electronically Signed By: Jeannette Owens MD, [facility] 05/13/2024 3:00:56 PM [employer] us Jeannette Owens MD CV ECHO PROCEDURES [...] Most Recently Relevant to Health Maintenance Insurance [facility] MEDICARE ADVANTAGE [place] [address] [facility] MEDICARE ADVANTAGE Care Teams Insulation Nozzleman Relationship Specialty Start Date End Date Dain Rendon MD PCP - General 01/02/10
--- OUTSIDE RECORDS SUMMARY | 2024-06-30 18:29 | XMS_ITS | Clinical Summary ---
Author Organization [facility] Address [address] [place] [address] Care Team Providers Care Neckties Painter Name Role Phone Dain Rendon MD Primary [...] Department Care Team Description 05/13/2024 2:00 PM [employer] Ancillary Procedure [facility] Medical Group Cardiology [address] [place] [address] ESPINO (dyspnea on exertion); Hypertension associated with diabetes (HCC) from Last 3 Months Surgical History Surgery Date Site/Laterality Comments CHOLECYSTECTOMY 1982 Cholecystectomy TONSILLECTOMY Tonsillectomy HIP ARTHROPLASTY Hip replacement [place] APPENDECTOMY Appendectomy - (Added by TW Conv) [place] TONSILLECTOMY PRIMARY/SEC ONDARY <AGE 12 Tonsillectomy - (Added by TW Conv) GALLBLADDER SURGERY Gallbladder Surgery - (Added by TW Conv) HIP SURGERY Hip Surgery - (Added by TW Conv) [place] HEMORRHOIDECTOMY INTERNAL RUBBER BAND LIGATIONS Hemorrhoidectomy - (Added by TW Conv) ROTATOR CUFF REPAIR Rotator Cuff Repair - (Added by TW Conv) VT BIOPSY BREAST OPEN INCISIONAL Incisional Breast Biopsy - (Added by TW Conv) [place] LAPS ABD PRTM&OMENTUM DX W/WO SPEC BR/WA SPX Laparoscopy (Diagnostic) - (Added by TW Conv) [place] CYSTO W/INSERT URETERAL STENT Cystoscopy With Insertion Of Ureteral Stent - (Added by TW Conv) VT SLING OPERATION STRESS INCONTINENCE Vaginal Sling Operation For Stress Incontinence - (Added by TW Conv) VT CMBND ANTERPOST COLPORRAP HY W/CYSTO W/NTRCL RPR Colporrhaphy Combined A-P And Enterocele Repair - (Added by TW Conv) VT COLPOCLEISIS [place] TYPE Vaginal Colpocleisis ([place] Procedure) - (Added by TW Conv) [place] VAGINECTOMY COMPLETE ENRIQUE JINNY VAGINAL WALL Vaginectomy [...] diabetes mellitus - (Added by TW Conv) [facility] current use of aspirin Current use of [...] on file Legal Sex Female 12:27 AM [employer] Gender Identity Not on file Sexual Orientation Not on file Obstetrics History Last Filed Vital Signs Vital Sign Reading Time Taken Comments Blood Pressure 136/60 03/18/2024 2:12 PM [employer] Pulse 75 03/18/2024 2:12 PM [employer] Temperature - - Respiratory Rate - - Oxygen Saturation 97% 03/18/2024 2:12 PM [employer] Inhaled Oxygen Concentration - - Weight 68.9 kg (152 lb) 03/18/2024 2:12 PM [employer] Height 149.9 cm (4' 11 ) 03/18/2024 2:12 PM [employer] Body Mass Index 30.7 03/18/2024 2:12 PM [employer] Plan of Treatment Health Maintenance Due Date [...] DOPPLER/CF WO CONTRAST Routine 05/13/2024 2:34 PM [employer] ESPINO (dyspnea on exertion) Hypertension associated with diabetes (HCC) SERUM LIPID PANEL Routine 11/09/2015 11: 10 PM CDT from Last 3 Months or Most Recently Relevant to Health Maintenance Results * TRANSTHORACIC ECHO (TTE) COMPLETE W DOPPLER/CF WO CONTRAST (05/13/2024 2:34 PM [employer]) LV EF % CONS SCIMAGE Anatomical Region Laterality Modality Ultrasound 05/13/2024 1:58 PM [employer] Narrative 05/13/2024 3:01 PM [employer] [facility] Medical Group Cardiology [address] [facility] [place] [address] [id number] [address], [place] [address] P:[phone] P:[phone] Echocardiographic Report Patient Name: LULA TOLEDO : 1940 Study Date: 05/13/2024 1:58:54 PM Gender: F Tech: Location: [place] Ref Provider: CHAN OWENS Height(Cm): 150 BSA: [...] Interpretation Site: Exam was interpreted at [facility]. Left Ventricle: Normal left ventricular size. Moderate [...] jet. Electronically Signed By: Chan Owens MD, [facility] 05/13/2024 3:00:56 PM [employer] Procedure Note Chan Owens MD - 05/13/2024 [facility] Medical Group Cardiology [address] [facility] [address], [place] [address] [address] [facility] [address], [place] [address] P:[phone] P:[phone] Echocardiographic Report Patient Name: LULA TOLEDO : 1940 Study Date: 05/13/2024 1:58:54 PM Gender: F Tech: Location: [place] Ref Provider: CHAN OWENS Height(Cm): 150 BSA: [...] Interpretation Site: Exam was interpreted at [facility]. Left Ventricle: Normal left ventricular size. Moderate [...] jet. Electronically Signed By: Chan Owens MD, [facility] 05/13/2024 3:00:56 PM [employer] us Chan Owens MD CV ECHO PROCEDURES [...] MD LAB BLOOD ORDERABLES Final Result LAB [facility] 88 from Last 3 Months or Most Recently Relevant to Health Maintenance Insurance [facility] MEDICARE ADVANTAGE [facility] Care Teams Neckties Painter Relationship Specialty Start Date End Date Dain Rendon MD PCP - General 01/02/10
--- OUTSIDE RECORDS SUMMARY | 2024-06-30 18:29 | XMS_ITS | Data Portability ---
Author Organization [facility], Main Office Address [address] [place] [address] Care Team Providers Care Waiter/Waitress Name Role Phone MARIA LUISA RENDON Primary Care Provider [phone] MARIA LUISA RENDON Referring Provider [phone] Assessment No assessment recorded. Plan of Treatment Reminders Order Date Submit Date Provider Last Modified By Organization Details Last Modified Time Details Appointments None recorded . Lab CBC w/ auto diff 025 06/12/19 25 [facility], [address], [place], [address], 5 03:15:17 CBC w/ auto diff 025 06/04/19 25 [facility], [address], [place], [address], 5 05:15:32 lipid panel, serum 025 06/04/19 25 [facility], [place], [address], 5 05:15:29 CMP, serum or plasma 025 06/04/19 25 [facility], [address] [place], [address], 5 05:15:31 TSH, serum or plasma 025 06/04/19 25 [facility], [address], [place], [address], 5 05:15:34 T4, free, serum 025 06/04/19 25 VIVIAN [facility], [address], [place], [address], 5 05:15:33 lipid panel, serum 025 04/23/19 25 [email or web address] [facility], [address], [place], [address], 5 17:38:18 CMP, serum or plasma 025 04/23/19 25 [facility], [address], [place], [address], 5 17:38:18 CBC w/ auto diff 025 04/23/19 25 [email or web address] [facility], [address], [place], [address], 5 17:38:18 HbA1c (hemoglo bin A1c), blood 025 04/23/19 25 [facility], [address], [place], [address], 5 17:38:18 lipid panel, serum 024 11/21/19 24 [facility], [address], [place], [address], 4 16:30:37 CMP, serum or plasma 024 11/21/19 24 [email or web address] [facility], [place], [address], 4 16:30:37 HbA1c (hemoglo bin A1c), blood 024 11/21/19 24 [email or web address] [facility], [address], [place], [address], 4 16:30:37 HbA1c (hemoglo bin A1c), blood 024 07/26/19 24 [email or web address] [facility], [address], [place], [address], 4 14:06:29 [email or web address] umin/cre atinine, mass ratio, urine 024 07/26/19 24 [facility], [address], [place], [address], 4 14:06:29 CBC w/ auto diff 07/26/19 24 [email or web address] [facility], [address], [place], [address], 4 14:06:28 CMP, serum or plasma 024 07/26/19 24 [email or web address] [facility], [address], [place], [address], 4 14:06:28 TSH, serum or plasma 024 07/26/19 24 [email or web address] [facility], [address], [place], [address], 4 14:06:28 T4, free, serum 024 07/26/19 [email or web address] [facility], [address], [place], [address], 4 14:06:29 lipid panel, serum 024 07/26/19 [facility], [address], [place], [address], 4 14:06:29 Referral None recorded . Procedures None recorded . Surgeries None recorded . Imaging None recorded . Medication Orders Feosol 325 mg (65 mg iron) tablet 025 06/12/19 25 [id number], [address] [facility], [place], [place], [id number], 15:48:33 Patient TargetsNo targets recorded. Patient Instructions Encounter Date Encounter Id Patient Instructions Last Modified By Organization Details Last Modified Time 07/26/2023 [id number] Follow-up hypertension, hyperlipidemia, type 2 diabetes, chronic [...] with voice recognition software. Occasional wrong-word or ufako-v-hpfg substitutions may have occurred due to the inherent limitations of voice recognition software. Read the chart carefully and recognize, using context, where substitutions have occurred. [email or web address] Not available 07/26/2023 16:16:20 11/21/2023 [id number] dementia rating scale-2* [email or web address] Not available 11/21/2023 16:34:38 alcohol misuse* [email or web address] Not available 11/21/2023 16:34:38 depression screening* Not available 11/21/2023 16:34:38 Timed Up and Go test (TUG)* Not available 11/21/2023 16:34:38 multi-dimensiona l health assessment questionnaire* [email or web address] Not available 11/21/2023 16:34:38 Personalized [facility] lt Plan and Screening Recommendations Advance Directives [...] Negative Active diagnosis, Continue current treatment plan [email or web address] Not available 11/21/2023 16:17:45 Follow-up hypertension, hyperlipidemia, [...] with voice recognition software. Occasional wrong-word or kerkb-w-kgvr substitutions may have occurred due to the inherent limitations of voice recognition software. Read the chart carefully and recognize, using context, where substitutions have occurred. [email or web address] Not available 11/21/2023 16:34:25 04/23/2024 [id number] Follow-up chroni c obstructive lung disease, essential [...] with voice recognition software. Occasional wrong-word or fxnyk-r-pzua substitutions may have occurred due to the inherent limitations of voice recognition software. Read the chart carefully and recognize, using context, where substitutions have occurred. Created: Maria Luisa Rendon M.D. 04.23.2024 02:35 PM [email or web address] Not available 04/23/2024 15:35:27 06/04/2024 [id number] complete blood c ount (CBC): about this test [email or web address] Not available 06/04/2024 15:45:30 06/11/2024 [id number] Gastrointestinal hemorrhage, hypertension, chronic obstructive lung disease [...] iron supplementation Keep Appointment: Sat 02:30 PM [place] Portions of record are template driven. When necessary additional context will be provided. Additionally some portions have been created with voice recognition software. Occasional wrong-word or tkafp-f-mnnv substitutions may have occurred due to the inherent limitations of voice recognition software. Read the chart carefully and recognize, using context, where substitutions may have occurred. Created: Maria Luisa Rendon M.D. 06.11.2024 02:48 PM [email or web address] Not available 06/11/2024 15:48:23 Reason for Referral None Reported. Results Created Date Observation Date Name Description Value Unit Range Abnormal Flag Note LastModifiedBy Organization Detail LastModifiedTime 08/30/19 24 08/31/2023 LIPID PANEL , STAND ERICA cholesterol, total 120 mg/dL <200 normal Not Available [employer] [facility] [address] [place], [address], 09/01/2023 04:37:35 08/30/19 24 08/31/2023 LIPID PANEL , STAND ERICA HDL cholesterol 62 mg/dL > or = 50 normal Not Available [facility] [address] [place] [address], [address], 09/01/2023 04:37:35 08/30/19 24 08/31/2023 LIPID PANEL , STAND ERICA triglyceride s 124 mg/dL <150 normal Not Available [facility] [address], [address], 09/01/2023 04:37:35 08/30/19 24 08/31/2023 LIPID PANEL [...] using the Dee Dee n-Hop kins calcu latgarfield n, which is a valid ated novel stevie posadas accur acy than the Fried olga equat ion in the estim ation of LDL-C . Dee Dee bush SS et al. ELENA. 2013; 310(1 9): 2061- 2068 (http ://ed ucati on.Meaghan Mcguire [employer]. com/f aq/FA Q164) Not Available [facility] [address], [address], 09/01/2023 04:37:35 08/30/19 24 08/31/2023 LIPID PANEL , STAND ERICA chol/HDLC ratio 1.9 (calc ) <5.0 normal Not Available [facility] [address] [place] [address], [address], 09/01/2023 04:37:35 08/30/19 24 08/31/2023 LIPID PANEL , STAND ERICA non HDL cholesterol 58 mg/dL _(fernie c) <130 normal For patie nts with diabe demetrius plus 1 major ASCVD risk facto r, treat ing to a non-H DL-C goal of <100 mg/dL (LDL- C of <70 mg/dL ) is real rossio n. Not Available [address] [address] [place], [address], 09/01/2023 04:37:35 08/30/1908/31/2023 ALBUM IN, RANDO M URINE W/CRE ATINI NE creatinine, random urine 176 mg/dL 20-275 normal Not Available [address] [address] [place], [address], 09/01/2023 04:37:37 08/30/19 24 08/31/2023 ALBUM IN, RANDO M URINE W/CRE ATINI NE albumin, urine 6.3 mg/dL see note: normal Refer ence Range : Refer ence Range Not estab lishe d Not Available [address] [address], [place], [address], 09/01/2023 04:37:37 08/30/1908/31/2023 ALBUM IN, RANDO M [...] a diagn ostic categ ory. Not Available [facility] [address] [address] [place], [address], 09/01/2023 04:37:37 08/30/19 24 08/31/2023 COMPR EHENS YANNA METAB OLIC PANEL glucose 160 mg/dL 65-99 high Fasti ng refer ence inter dk For someo ne witho ut known diabe demetrius, a gluco se value >125 mg/dL indic ates that they may have diabe demetrius and this shoul d be confi rmed with a follo w-up test. Not Available [address], [address], 09/01/2023 04:37:38 08/30/19 24 08/31/2023 COMPR EHENS YANNA METAB OLIC PANEL urea nitrogen (BUN) 14 mg/dL 7-25 normal Not Available [address], [address], 09/01/2023 04:37:38 08/30/19 24 08/31/2023 COMPR EHENS YANNA METAB OLIC PANEL creatinine 0.89 mg/dL 0.60-0 .95 normal Not Available [address], [address], 09/01/2023 04:37:38 08/30/19 24 08/31/2023 COMPR EHENS YANNA METAB OLIC PANEL eGFR 65 mL/mi n/1.7 3m2 > or = 60 normal Not Available [address], [address], 09/01/2023 04:37:38 08/30/19 24 08/31/2023 COMPR EHENS YANNA METAB OLIC PANEL BUN/creatini ne ratio SEE NOTE: (calc ) 6-22 Not Repor lynne: BUN and Creat inine are withi n refer ence range . Not Available [address], [address], 09/01/2023 04:37:38 08/30/19 24 08/31/2023 COMPR EHENS YANNA METAB OLIC PANEL sodium 137 mmol/ L 135-14 6 normal Not Available [address] [place], [address], 09/01/2023 04:37:38 08/30/19 24 08/31/2023 COMPR EHENS YANNA METAB OLIC PANEL potassium 3.9 mmol/ L 3.5-5. 3 normal Not Available [address], [address], 09/01/2023 04:37:38 08/30/19 24 08/31/2023 COMPR EHENS YANNA METAB OLIC PANEL chloride 101 mmol/ L 98-110 normal Not Available [address], [address], 09/01/2023 04:37:38 08/30/19 24 08/31/2023 COMPR EHENS YANAN METAB OLIC PANEL carbon dioxide 26 mmol/ L 20-32 normal Not Available [address], [address], 09/01/2023 04:37:38 08/30/19 24 08/31/2023 COMPR EHENS YANNA METAB OLIC PANEL calcium 10.4 mg/dL 8.6-10 .4 normal Not Available [address], [address], 09/01/2023 04:37:38 08/30/19 24 08/31/2023 COMPR EHENS YANNA METAB OLIC PANEL protein, total 7.5 g/dL 6.1-8. 1 normal Not Available [address], [address], 09/01/2023 04:37:38 08/30/19 24 08/31/2023 COMPR EHENS YANNA METAB OLIC PANEL albumin 4.7 g/dL 3.6-5. 1 normal Not Available [facility] [address], [address], 09/01/2023 04:37:38 08/30/19 24 08/31/2023 COMPR EHENS YANNA METAB OLIC PANEL globulin 2.8 g/dL_ (calc ) 1.9-3. 7 normal Not Available [address], [address], 09/01/2023 04:37:38 08/30/19 24 08/31/2023 COMPR EHENS YANNA METAB OLIC PANEL albumin/glob ulin ratio 1.7 (calc ) 1.0-2. 5 normal Not Available [address], [address], 09/01/2023 04:37:38 08/30/19 24 08/31/2023 COMPR EHENS YANNA METAB OLIC PANEL bilirubin, total 0.7 mg/dL 0.2-1. 2 normal Not Available [address], [address], 09/01/2023 04:37:38 08/30/19 24 08/31/2023 COMPR EHENS YANNA METAB OLIC PANEL alkaline phosphatase 90 U/L 37-153 normal Not Available [address], [address], 09/01/2023 04:37:38 08/30/19 24 08/31/2023 COMPR EHENS YANNA METAB OLIC PANEL AST 15 U/L 10-35 normal Not Available [address], [address], 09/01/2023 04:37:38 08/30/19 24 08/31/2023 COMPR EHENS YANNA METAB OLIC PANEL ALT 11 U/L 6-29 normal Not Available [address], [address], 09/01/2023 04:37:38 08/30/19 24 08/31/2023 CBC (INCL UDES DIFF/ PLT) white blood cell count 8.2 thous and/u L 3.8-10 .8 normal Not Available [facility] [address], [address], 09/01/2023 04:37:39 08/30/1908/31/2023 CBC (INCL UDES DIFF/ PLT) red blood cell count 4.28 erasmo on/uL 3.80-5 .10 normal Not Available [facility] [address], [address], 09/01/2023 04:37:39 08/30/19 24 08/31/2023 CBC (INCL UDES DIFF/ PLT) hemoglobin 9.6 g/dL 11.7-1 5.5 low Not Available [facility] [address], [address], 09/01/2023 04:37:39 08/30/19 24 08/31/2023 CBC (INCL UDES DIFF/ PLT) hematocrit 34.3 % 35.0-4 5.0 low Not Available [facility] [address], [address], 09/01/2023 04:37:39 08/30/19 24 08/31/2023 CBC (INCL UDES DIFF/ PLT) MCV 80.1 fL 80.0-1 00.0 normal Not Available [facility] [address], [address], 09/01/2023 04:37:39 08/30/19 24 08/31/2023 CBC (INCL UDES DIFF/ PLT) MCH 22.4 pg 27.0-3 3.0 low Not Available [facility] [address], [address], 09/01/2023 04:37:39 08/30/19 24 08/31/2023 CBC (INCL UDES DIFF/ PLT) MCHC 28.0 g/dL 32.0-3 6.0 low Not Available [facility] [address], [address], 09/01/2023 04:37:39 08/30/19 24 08/31/2023 CBC (INCL UDES DIFF/ PLT) RDW 17.4 % 11.0-1 5.0 high Not Available [address], [address], 09/01/2023 04:37:39 08/30/19 24 08/31/2023 CBC (INCL UDES DIFF/ PLT) platelet count 197 thous and/u L 140-40 0 normal Not Available [address], [address], 09/01/2023 04:37:39 08/30/1908/31/2023 CBC (INCL UDES DIFF/ PLT) MPV 12.4 fL 7.5-12 .5 normal Not Available [address], [address], 09/01/2023 04:37:39 08/30/19 24 08/31/2023 CBC (INCL UDES DIFF/ PLT) absolute neutrophils 6002 cells /uL 1500-7 800 normal Not Available [address], [address], 09/01/2023 04:37:39 08/30/19 24 08/31/2023 CBC (INCL UDES DIFF/ PLT) absolute lymphocytes 1460 cells /uL 850-39 00 normal Not Available [address], [address], 09/01/2023 04:37:39 08/30/19 24 08/31/2023 CBC (INCL UDES DIFF/ PLT) absolute monocytes 607 cells /uL 200-95 0 normal Not Available [address], [address], 09/01/2023 04:37:39 08/30/19 24 08/31/2023 CBC (INCL UDES DIFF/ PLT) absolute eosinophils 74 cells /uL 15-500 normal Not Available [address], [address], 09/01/2023 04:37:39 08/30/19 24 08/31/2023 CBC (INCL UDES DIFF/ PLT) absolute basophils 57 cells /uL 0-200 normal Not Available [facility] [address], [address], 09/01/2023 04:37:39 08/30/19 24 08/31/2023 CBC (INCL UDES DIFF/ PLT) neutrophils 73.2 % normal Not Available [facility] [address], [address], 09/01/2023 04:37:39 08/30/19 24 08/31/2023 CBC (INCL UDES DIFF/ PLT) lymphocytes 17.8 % normal Not Available [facility] [address], [address], 09/01/2023 04:37:39 08/30/19 24 08/31/2023 CBC (INCL UDES DIFF/ PLT) monocytes 7.4 % normal Not Available [facility] [address], [address], 09/01/2023 04:37:39 08/30/19 24 08/31/2023 CBC (INCL UDES DIFF/ PLT) eosinophils 0.9 % normal Not Available [facility] [address], [address], 09/01/2023 04:37:39 08/30/19 24 08/31/2023 CBC (INCL UDES DIFF/ PLT) basophils 0.7 % normal Not Available [address], [address], 09/01/2023 04:37:39 08/30/19 24 08/31/2023 T4, FREE T4, free 0.9 NG/dL 0.8-1. 8 normal Not Available [address] [place], [address], 09/01/2023 04:37:40 08/30/1908/31/2023 TSH TSH 1.41 mIU/L 0.40-4 .50 normal Not Available [facility] [address] [place], [address], 09/01/2023 04:37:41 08/30/1908/31/2023 HEMOG LOBIN A1C hemoglobin A1C 8.0 %_of_ total _HGB <5.7 high For someo ne witho ut known diabe demetrius, a hemog lobin A1c value of 6.5% or great er indic ates that they may have diabe demertius and this shoul d be confi rmed [...] granados in test platf orms from the [facility] to the [facility] c503 may have shift ed HbA1c resul ts marcellus red to histo rical resul ts. Based on labor atory valid ation testi ng condu cted at [facility] , the [facility] or[facility] relat yanna to the [facility] platf orm had an avera ge incre [...] is not recom ryan muir. Not Available [address] [address] [place], [address], 09/01/2023 04:37:42 01/16/2001/17/2024 LIPID PANEL , STAND ERICA cholesterol, total 137 mg/dL <200 normal Not Available [address] [address] [place], [address], 01/17/2024 03:11:49 01/16/2001/17/2024 LIPID PANEL , STAND ERICA HDL cholesterol 57 mg/dL > or = 50 normal Not Available [address] [address] [place], [address], 01/17/2024 03:11:49 01/16/2001/17/2024 LIPID PANEL , STAND ERICA triglyceride s 115 mg/dL <150 normal Not Available [address] [address] [place], [address], 01/17/2024 03:11:49 01/16/2001/17/2024 LIPID PANEL , STAND [...] 2061- 2068 (http ://ed ucati on.Qu estDi [employer]. com/f aq/FA Q164) Not Available [address], [address], 01/17/2024 03:11:49 01/16/2001/17/2024 LIPID PANEL , STAND ERICA chol/HDLC ratio 2.4 (calc ) <5.0 normal Not Available [facility] [address], [address], 01/17/2024 03:11:49 01/16/2001/17/2024 LIPID PANEL , STAND ERICA non HDL cholesterol 80 mg/dL _(fernie c) <130 normal For patie nts with diabe demetrius plus 1 major ASCVD risk facto r, treat ing to a non-H DL-C goal of <100 mg/dL (LDL- C of <70 mg/dL ) is consi omidd a candido pechina c optio n. Not Available [address], [address], 01/17/2024 03:11:49 01/16/2001/17/2024 COMPR EHENS YANNA METAB OLIC PANEL , PLASM A glucose 172 mg/dL 65-99 high Fasti ng refer ence inter dk For someo ne witho ut known diabe demetrius, a gluco se value >125 mg/dL indic ates that they may have diabe demetrius and this shoul d be confi rmed with a follo w-up test. Not Available [address], [address], 01/17/2024 03:11:50 01/16/20 24 01/17/2024 COMPR EHENS YANNA METAB OLIC PANEL , PLASM A urea nitrogen (BUN) 13 mg/dL 7-25 normal Not Available [facility] [address], [address], 01/17/2024 03:11:50 01/16/20 24 01/17/2024 COMPR EHENS YANNA METAB OLIC PANEL , PLASM A creatinine 0.79 mg/dL 0.60-0 .95 normal Not Available [address] [address] [place], [address], 01/17/2024 03:11:50 01/16/20 24 01/17/2024 COMPR EHENS YANNA METAB OLIC PANEL , PLASM A eGFR 75 mL/mi n/1.7 3m2 > or = 60 normal Not Available [address], [address], 01/17/2024 03:11:50 01/16/20 24 01/17/2024 COMPR EHENS YANNA METAB OLIC PANEL , PLASM A BUN/creatini ne ratio SEE NOTE: (calc ) 6-22 Not Repor lynne: BUN and Creat inine are withi n refer ence range . Not Available [address], [address], 01/17/2024 03:11:50 01/16/20 24 01/17/2024 COMPR EHENS YANNA METAB OLIC PANEL , PLASM A sodium 136 mmol/ L 135-14 6 normal Not Available [address], [address], 01/17/2024 03:11:50 01/16/20 24 01/17/2024 COMPR EHENS YANNA METAB OLIC PANEL , PLASM A potassium 3.8 mmol/ L 3.4-4. 8 normal Not Available [address], [address], 01/17/2024 03:11:50 01/16/20 24 01/17/2024 COMPR EHENS YANNA METAB OLIC PANEL , PLASM A chloride 101 mmol/ L 98-110 normal Not Available [address], [address], 01/17/2024 03:11:50 01/16/20 24 01/17/2024 COMPR EHENS YANNA METAB OLIC PANEL , PLASM A carbon dioxide 25 mmol/ L 20-32 normal Not Available [address], [address], 01/17/2024 03:11:50 01/16/20 24 01/17/2024 COMPR EHENS YANNA METAB OLIC PANEL , PLASM A calcium 9.8 mg/dL 8.6-10 .4 normal Not Available [address], [address], 01/17/2024 03:11:50 01/16/20 24 01/17/2024 COMPR EHENS YANNA METAB OLIC PANEL , PLASM A protein, total 7.1 g/dL 6.4-8. 4 normal Not Available [address], [address], 01/17/2024 03:11:50 01/16/20 24 01/17/2024 COMPR EHENS YANNA METAB OLIC PANEL , PLASM A albumin 4.3 g/dL 3.6-5. 1 normal Not Available [address], [address], 01/17/2024 03:11:50 01/16/2001/17/2024 COMPR EHENS YANNA METAB OLIC PANEL , PLASM A globulin 2.8 g/dL_ (calc ) 2.2-4. 0 normal Not Available [address], [address], 01/17/2024 03:11:50 01/16/20 24 01/17/2024 COMPR EHENS YANNA METAB OLIC PANEL , PLASM A albumin/glob ulin ratio 1.5 (calc ) 0.9-2. 3 normal Not Available [address], [address], 01/17/2024 03:11:50 01/16/20 24 01/17/2024 COMPR EHENS YANNA METAB OLIC PANEL , PLASM A bilirubin, total 0.5 mg/dL 0.2-1. 2 normal Not Available [address] [place], [address], 01/17/2024 03:11:50 01/16/20 24 01/17/2024 COMPR EHENS YANNA METAB OLIC PANEL , PLASM A alkaline phosphatase 75 U/L 37-153 normal Not Available [facility] [address] [place], [address], 01/17/2024 03:11:50 01/16/20 24 01/17/2024 COMPR EHENS YANNA METAB OLIC PANEL , PLASM A AST 12 U/L 10-35 normal Not Available [address] [address] [place], [address], 01/17/2024 03:11:50 01/16/20 24 01/17/2024 COMPR EHENS YANNA METAB OLIC PANEL , PLASM A ALT 9 U/L 6-29 normal Not Available [address] [address] [place], [address], 01/17/2024 03:11:50 01/16/20 24 01/17/2024 HEMOG LOBIN [...] diabe demetrius for child margarita. Not Available [facility] [employer] [address] [address] [place], [address], 01/17/2024 03:11:51 06/04/1906/05/2024 LIPID PANEL , STAND ERICA cholesterol, total 113 mg/dL <200 normal Not Available [address], [address], 06/05/2024 05:15:29 06/04/19 25 06/05/2024 LIPID PANEL , STAND ERICA HDL cholesterol 50 mg/dL > or = 50 normal Not Available [address] [address] [place], [address], 06/05/2024 05:15:29 06/04/1906/05/2024 LIPID PANEL , STAND ERICA triglyceride s 102 mg/dL <150 normal Not Available [address], [address], 06/05/2024 05:15:29 06/04/1906/05/2024 LIPID PANEL , STAND [...] 2061- 2068 (http ://ed ucati on.Qu Shayla pedersenGobblers. com/f aq/FA Q164) Not Available [address] [address] [place], [address], 06/05/2024 05:15:29 06/04/19 25 06/05/2024 LIPID PANEL , STAND ERICA chol/HDLC ratio 2.3 (calc ) <5.0 normal Not Available [address] [address] [place], [address], 06/05/2024 05:15:29 06/04/1906/05/2024 LIPID PANEL , STAND ERICA non HDL cholesterol 63 mg/dL _(fernie c) <130 normal For patie nts with diabe demetrius plus 1 major ASCVD risk facto r, treat ing to a non-H DL-C goal of <100 mg/dL (LDL- C of <70 mg/dL ) is consi dered a thera peuti c optio n. Not Available [address], [address], 06/05/2024 05:15:29 06/04/1906/05/2024 COMPR EHENS YANNA METAB OLIC PANEL , PLASM A glucose 165 mg/dL 65-139 high Non-f astin g refer ence inter dk Not Available [address] [address] [place], [address], 06/05/2024 05:15:31 06/04/19 25 06/05/2024 COMPR EHENS YANNA METAB OLIC PANEL , PLASM A urea nitrogen (BUN) 14 mg/dL 7-25 normal Not Available [address], [address], 06/05/2024 05:15:31 06/04/19 25 06/05/2024 COMPR EHENS YANNA METAB OLIC PANEL , PLASM A creatinine 0.67 mg/dL 0.60-0 .95 normal Not Available [facility] [address] [place], [address], 06/05/2024 05:15:31 06/04/1906/05/2024 COMPR EHENS YANNA METAB OLIC PANEL , PLASM A eGFR 87 mL/mi n/1.7 3m2 > or = 60 normal Not Available [facility] [address] [address] [place], [address], 06/05/2024 05:15:31 06/04/19 25 06/05/2024 COMPR EHENS YANNA METAB OLIC PANEL , PLASM A BUN/creatini ne ratio SEE NOTE: (calc ) 6-22 Not Repor lynne: BUN and Creat inine are withi n refer ence range . Not Available [address] [place], [address], 06/05/2024 05:15:31 06/04/1906/05/2024 COMPR EHENS YANNA METAB OLIC PANEL , PLASM A sodium 138 mmol/ L 135-14 6 normal Not Available [address], [address], 06/05/2024 05:15:31 06/04/19 25 06/05/2024 COMPR EHENS YANNA METAB OLIC PANEL , PLASM A potassium 3.9 mmol/ L 3.4-4. 8 normal Not Available [address], [address], 06/05/2024 05:15:31 06/04/19 25 06/05/2024 COMPR EHENS YANNA METAB OLIC PANEL , PLASM A chloride 104 mmol/ L 98-110 normal Not Available [address], [address], 06/05/2024 05:15:31 06/04/19 25 06/05/2024 COMPR EHENS YANNA METAB OLIC PANEL , PLASM A carbon dioxide 27 mmol/ L 20-32 normal Not Available [address], [address], 06/05/2024 05:15:31 06/04/19 25 06/05/2024 COMPR EHENS YANNA METAB OLIC PANEL , PLASM A calcium 9.8 mg/dL 8.6-10 .4 normal Not Available [address], [address], 06/05/2024 05:15:31 06/04/1906/05/2024 COMPR EHENS YANNA METAB OLIC PANEL , PLASM A protein, total 6.5 g/dL 6.4-8. 4 normal Not Available [address], [address], 06/05/2024 05:15:31 06/04/19 25 06/05/2024 COMPR EHENS YANNA METAB OLIC PANEL , PLASM A albumin 4.1 g/dL 3.6-5. 1 normal Not Available [address], [address], 06/05/2024 05:15:31 06/04/1906/05/2024 COMPR EHENS YANNA METAB OLIC PANEL , PLASM A globulin 2.4 g/dL_ (calc ) 2.2-4. 0 normal Not Available [address], [address], 06/05/2024 05:15:31 06/04/19 25 06/05/2024 COMPR EHENS YANNA METAB OLIC PANEL , PLASM A albumin/glob ulin ratio 1.7 (calc ) 0.9-2. 3 normal Not Available [address], [address], 06/05/2024 05:15:31 06/04/19 25 06/05/2024 COMPR EHENS YANNA METAB OLIC PANEL , PLASM A bilirubin, total 0.3 mg/dL 0.2-1. 2 normal Not Available [address], [address], 06/05/2024 05:15:31 06/04/1906/05/2024 COMPR EHENS YANNA METAB OLIC PANEL , PLASM A alkaline phosphatase 75 U/L 37-153 normal Not Available [address], [address], 06/05/2024 05:15:31 06/04/19 25 06/05/2024 COMPR EHENS YANNA METAB OLIC PANEL , PLASM A AST 18 U/L 10-35 normal Not Available [address], [address], 06/05/2024 05:15:31 06/04/19 25 06/05/2024 COMPR EHENS YANNA METAB OLIC PANEL , PLASM A ALT 17 U/L 6-29 normal Not Available [address], [address], 06/05/2024 05:15:31 06/04/19 25 06/05/2024 CBC (INCL UDES DIFF/ PLT) white blood cell count 5.3 thous and/u L 3.8-10 .8 normal Not Available [address], [address], 06/05/2024 05:15:32 06/04/19 25 06/05/2024 CBC (INCL UDES DIFF/ PLT) red blood cell count 3.39 erasmo on/uL 3.80-5 .10 low Not Available [facility] [address], [address], 06/05/2024 05:15:32 06/04/19 25 06/05/2024 CBC (INCL UDES DIFF/ PLT) hemoglobin 7.6 g/dL 11.7-1 5.5 low Not Available [facility] [address], [address], 06/05/2024 05:15:32 06/04/19 25 06/05/2024 CBC (INCL UDES DIFF/ PLT) hematocrit 26.7 % 35.0-4 5.0 low Not Available [facility] [address], [address], 06/05/2024 05:15:32 06/04/19 25 06/05/2024 CBC (INCL UDES DIFF/ PLT) MCV 78.8 fL 80.0-1 00.0 low Not Available [facility] [address] [address], [place], [address], 06/05/2024 05:15:32 06/04/1906/05/2024 CBC (INCL UDES DIFF/ PLT) MCH 22.4 pg 27.0-3 3.0 low Not Available [facility] [address], [address], 06/05/2024 05:15:32 06/04/1906/05/2024 CBC (INCL UDES DIFF/ [...] clini fernie condi tion. Not Available [facility] [address], [address], 06/05/2024 05:15:32 06/04/1906/05/2024 CBC (INCL UDES DIFF/ PLT) RDW 19.8 % 11.0-1 5.0 high Not Available [address], [address], 06/05/2024 05:15:32 06/04/1906/05/2024 CBC (INCL UDES DIFF/ PLT) platelet count 148 thous and/u L 140-40 0 normal Not Available [facility] [address], [address], 06/05/2024 05:15:32 06/04/1906/05/2024 CBC (INCL UDES DIFF/ PLT) MPV fL 7.5-12 .5 Due to plate let or RBC varia bilit y in size or shape the resul t canno t be repor lynne accur ately . Not Available [facility] [place] [address] [place], [address], 06/05/2024 05:15:32 06/04/19 25 06/05/2024 CBC (INCL UDES DIFF/ PLT) absolute neutrophils 3615 cells /uL 1500-7 800 normal Not Available [facility] [address] [address] [place], [address], 06/05/2024 05:15:32 06/04/19 25 06/05/2024 CBC (INCL UDES DIFF/ PLT) absolute lymphocytes 912 cells /uL 850-39 00 normal Not Available [facility] [address], [address], 06/05/2024 05:15:32 06/04/19 25 06/05/2024 CBC (INCL UDES DIFF/ PLT) absolute monocytes 684 cells /uL 200-95 0 normal Not Available [facility] [address] [address] [place], [address], 06/05/2024 05:15:32 06/04/19 25 06/05/2024 CBC (INCL UDES DIFF/ PLT) absolute eosinophils 58 cells /uL 15-500 normal Not Available [facility] [address] [address] [place], [address], 06/05/2024 05:15:32 06/04/19 25 06/05/2024 CBC (INCL UDES DIFF/ PLT) absolute basophils 32 cells /uL 0-200 normal Not Available [facility] [address], [address], 06/05/2024 05:15:32 06/04/19 25 06/05/2024 CBC (INCL UDES DIFF/ PLT) neutrophils 68.2 % normal Not Available [address] [address] [place], [address], 06/05/2024 05:15:32 06/04/19 25 06/05/2024 CBC (INCL UDES DIFF/ PLT) lymphocytes 17.2 % normal Not Available [address], [address], 06/05/2024 05:15:32 06/04/19 25 06/05/2024 CBC (INCL UDES DIFF/ PLT) monocytes 12.9 % normal Not Available [address], [address], 06/05/2024 05:15:32 06/04/19 25 06/05/2024 CBC (INCL UDES DIFF/ PLT) eosinophils 1.1 % normal Not Available [facility] [address], [address], 06/05/2024 05:15:32 06/04/19 25 06/05/2024 CBC (INCL UDES DIFF/ PLT) basophils 0.6 % normal Not Available [address], [address], 06/05/2024 05:15:32 06/04/19 25 06/05/2024 CBC (INCL UDES DIFF/ PLT) comment(s) Revie w of perip heral smear confi burt autom ated resul ts. Revie w of the perip heral smear revea ls adequ ate numbe rs of plate lets. Not Available [address], [address], 06/05/2024 05:15:32 06/04/19 25 06/05/2024 T4, FREE T4, free 0.9 NG/dL 0.8-1. 8 normal Not Available [address], [address], 06/05/2024 05:15:33 06/04/19 25 06/05/2024 TSH TSH 2.36 mIU/L 0.40-4 .50 normal Not Available [address], [address], 06/05/2024 05:15:34 06/04/19 25 06/05/2024 HEMOG LOBIN [...] diabe demetrius for child margarita. Not Available [address] [address] [place], [address], 06/05/2024 05:15:35 06/12/1906/12/2024 CBC (INCL UDES DIFF/ PLT) white blood cell count 5.4 thous and/u L 3.8-10 .8 normal Not Available [address] [address] [place], [address], 06/12/2024 03:15:17 06/12/19 25 06/12/2024 CBC (INCL UDES DIFF/ PLT) red blood cell count 3.92 erasmo on/uL 3.80-5 .10 normal Not Available [facility] [address] [place], [address], 06/12/2024 03:15:17 06/12/19 25 06/12/2024 CBC (INCL UDES DIFF/ PLT) hemoglobin 9.2 g/dL 11.7-1 5.5 low Not Available [facility] [address] [address] [place], [address], 06/12/2024 03:15:17 06/12/19 25 06/12/2024 CBC (INCL UDES DIFF/ PLT) hematocrit 31.8 % 35.0-4 5.0 low Not Available [address], [address], 06/12/2024 03:15:17 06/12/19 25 06/12/2024 CBC (INCL UDES DIFF/ PLT) MCV 81.1 fL 80.0-1 00.0 normal Not Available [address], [address], 06/12/2024 03:15:17 06/12/1906/12/2024 CBC (INCL UDES DIFF/ PLT) MCH 23.5 pg 27.0-3 3.0 low Not Available [address], [address], 06/12/2024 03:15:17 06/12/19 25 06/12/2024 CBC (INCL [...] corre lat n with other red cell jyo eters and the patie nt's clini fernie condi tion. Not Available [address], [address], 06/12/2024 03:15:17 06/12/1906/12/2024 CBC (INCL UDES DIFF/ PLT) RDW 19.5 % 11.0-1 5.0 high Not Available [address], [address], 06/12/2024 03:15:17 03/06/06/12/2024 CBC (INCL UDES DIFF/ PLT) platelet count 150 thous and/u L 140-40 0 normal Not Available [address], [address], 06/12/2024 03:15:17 06/12/19 25 06/12/2024 CBC (INCL UDES DIFF/ PLT) MPV 11.9 fL 7.5-12 .5 normal Not Available [address], [address], 06/12/2024 03:15:17 06/12/19 25 06/12/2024 CBC (INCL UDES DIFF/ PLT) absolute neutrophils 3515 cells /uL 1500-7 800 normal Not Available [address], [address], 06/12/2024 03:15:17 06/12/19 25 06/12/2024 CBC (INCL UDES DIFF/ PLT) absolute lymphocytes 967 cells /uL 850-39 00 normal Not Available [address], [address], 06/12/2024 03:15:17 06/12/19 25 06/12/2024 CBC (INCL UDES DIFF/ PLT) absolute monocytes 594 cells /uL 200-95 0 normal Not Available [address], [address], 06/12/2024 03:15:17 06/12/1906/12/2024 CBC (INCL UDES DIFF/ PLT) absolute eosinophils 302 cells /uL 15-500 normal Not Available [address], [address], 06/12/2024 03:15:17 06/12/19 25 06/12/2024 CBC (INCL UDES DIFF/ PLT) absolute basophils 22 cells /uL 0-200 normal Not Available [address], [address], 06/12/2024 03:15:17 06/12/19 25 06/12/2024 CBC (INCL UDES DIFF/ PLT) neutrophils 65.1 % normal Not Available [address], [address], 06/12/2024 03:15:17 06/12/19 25 06/12/2024 CBC (INCL UDES DIFF/ PLT) lymphocytes 17.9 % normal Not Available [address], [address], 06/12/2024 03:15:17 06/12/19 25 06/12/2024 CBC (INCL UDES DIFF/ PLT) monocytes 11.0 % normal Not Available [address], [address], 06/12/2024 03:15:17 06/12/19 25 06/12/2024 CBC (INCL UDES DIFF/ PLT) eosinophils 5.6 % normal Not Available [address], [address], 06/12/2024 03:15:17 06/12/19 25 06/12/2024 CBC (INCL UDES DIFF/ PLT) basophils 0.4 % normal Not Available [address], [address], 06/12/2024 03:15:17 06/24/19 25 06/24/2024 CBC (INCL UDES DIFF/ PLT) white blood cell count 9.7 thous and/u L 3.8-10 .8 normal Not Available [address], [address], 06/24/2024 06:57:04 06/24/19 25 06/24/2024 CBC (INCL UDES DIFF/ PLT) red blood cell count 3.97 erasmo on/uL 3.80-5 .10 normal Not Available [address], [address], 06/24/2024 06:57:04 06/24/1906/24/2024 CBC (INCL UDES DIFF/ PLT) hemoglobin 9.3 g/dL 11.7-1 5.5 low Not Available [address], [address], 06/24/2024 06:57:04 06/24/1906/24/2024 CBC (INCL UDES DIFF/ PLT) hematocrit 31.8 % 35.0-4 5.0 low Not Available [facility] [address], [address], 06/24/2024 06:57:04 06/24/1906/24/2024 CBC (INCL UDES DIFF/ PLT) MCV 80.1 fL 80.0-1 00.0 normal Not Available [address], [address], 06/24/2024 06:57:04 06/24/1906/24/2024 CBC (INCL UDES DIFF/ PLT) MCH 23.4 pg 27.0-3 3.0 low Not Available [address], [address], 06/24/2024 06:57:04 06/24/1906/24/2024 CBC (INCL UDES DIFF/ PLT) MCHC 29.2 g/dL 32.0-3 6.0 low For adult s, a sligh t decre ase in the calcu lated MCHC value (in the range of 30 to 32 g/dL) is most likel y not clini ziggy hankins t; tony er, it shoul d be inter prete d with cauti on in [facility] lat n with other red cell joy eters and the patie nt's clini fernie condi tion. Not Available [facility] [address], [address], 06/24/2024 06:57:04 06/24/1906/24/2024 CBC (INCL UDES DIFF/ PLT) RDW 19.3 % 11.0-1 5.0 high Not Available [address], [address], 06/24/2024 06:57:04 06/24/1906/24/2024 CBC (INCL UDES DIFF/ PLT) platelet count 163 thous and/u L 140-40 0 normal Not Available [address], [address], 06/24/2024 06:57:04 06/24/1906/24/2024 CBC (INCL UDES DIFF/ PLT) MPV 10.6 fL 7.5-12 .5 normal Not Available [address], [address], 06/24/2024 06:57:04 06/24/19 25 06/24/2024 CBC (INCL UDES DIFF/ PLT) absolute neutrophils 8255 cells /uL 1500-7 800 high Not Available [address], [address], 06/24/2024 06:57:04 06/24/1906/24/2024 CBC (INCL UDES DIFF/ PLT) absolute lymphocytes 766 cells /uL 850-39 00 low Not Available [address], [address], 06/24/2024 06:57:04 06/24/1906/24/2024 CBC (INCL UDES DIFF/ PLT) absolute monocytes 631 cells /uL 200-95 0 normal Not Available [address], [address], 06/24/2024 06:57:04 06/24/19 25 06/24/2024 CBC (INCL UDES DIFF/ PLT) absolute eosinophils 19 cells /uL 15-500 normal Not Available [address], [place], [address], 06/24/2024 06:57:04 06/24/19 25 06/24/2024 CBC (INCL UDES DIFF/ PLT) absolute basophils 29 cells /uL 0-200 normal Not Available [facility] [address], [address], 06/24/2024 06:57:04 06/24/19 25 06/24/2024 CBC (INCL UDES DIFF/ PLT) neutrophils 85.1 % normal Not Available [facility] [address], [address], 06/24/2024 06:57:04 06/24/1906/24/2024 CBC (INCL UDES DIFF/ PLT) lymphocytes 7.9 % normal Not Available [facility] [address], [address], 06/24/2024 06:57:04 06/24/19 25 06/24/2024 CBC (INCL UDES DIFF/ PLT) monocytes 6.5 % normal Not Available [facility] [address], [address], 06/24/2024 06:57:04 06/24/1906/24/2024 CBC (INCL UDES DIFF/ PLT) eosinophils 0.2 % normal Not Available [facility] [address], [address], 06/24/2024 06:57:04 06/24/1906/24/2024 CBC (INCL UDES DIFF/ PLT) basophils 0.3 % normal Not Available [facility] [address], [address], 06/24/2024 06:57:04 04/27/19 25 04/27/2024 MAMMO , tio contreras, digit al, bilat eral No observ ation record ed. [address], [place], [address], 04/27/2024 17:43:35 04/29/19 25 04/27/2024 bone densi ty No observ ation record ed. [address], [place], [address], 04/29/2024 09:54:44 06/05/19 25 06/05/2024 XR, chest No observ ation record ed. [address], [place], [address], 06/06/2024 08:33:45 Result Notes None recorded. Problems Name Problem SNOMED Code Status Onset Date Resolution Date Notes Provider Name and Address Organization Details Recorded Time Renewal of prescripti on Active 2021 Not Available [facility] 3 12:45:37 Chronic obstructiv e pulmonary disease 24630298 Active 2020 Not Available [facility] 3 12:45:37 Senile osteoporos is 62980537 Active 2021 Not Available [facility] 3 12:45:37 Pure hyperchole sterolemia 515374298 Active 2020 Not Available [facility] 3 12:45:37 Low back pain 689926049 Active 2021 Not Available [facility] 3 12:45:37 Recurrent dislocatio n of shoulder region 77601659 Active Not Available [facility] 3 12:45:37 Enthesopat hy of hip region 99297390 Active Not Available [facility] 3 12:45:37 Type 2 diabetes mellitus without complicati on 867791756 Active 2020 Not Available [facility] 3 12:45:37 Vitamin D deficiency 90271126 Active 2021 Not Available [facility] 3 12:45:38 Disorder of rotator cuff 773238738 Active Not Available [facility] 3 12:45:38 History of polyp of colon 404494554 Active 03/16/ 2021 Not Available [facility] 3 12:45:38 Disorder of bursa of shoulder region 53682050 Active Not Available [facility] 3 12:45:38 Essential hypertensi on 47970876 Active 2020 Not Available [facility] 3 12:45:38 Pulmonary hypertensi on 93890050 Active 2021 Not Available [facility] 3 12:45:38 Chronic back pain 907886867 Active 2022 Violette Dawn CMA null, [place] [facility] 3 14:39:22 Obese class I 8126141909254 07 Active 2022 Maria Luisa Rendon MD [address], [place], [address] , [facility] 3 15:47:21 Depressive disorder 26416963 Active 2023 Violetet Dawn CMA null, [place] [facility] 4 17:35:48 Trigger finger of right hand 0683420576836 9101 Active 2024 Fariba Valdez null, [place] [facility] 5 15:49:08 Abdominal pain 54557610 Active 2024 Maria Luisa Rendon MD [address], [address], [place], [address] , [facility] 5 15:37:51 Type 2 diabetes mellitus 81637978 Active 2024 Fariba Valdez null, [place] [facility] 5 15:48:29 Gastrointe stinal hemorrhage 02560255 Active 2024 Maria Luisa Rendon MD [address], [place], [address] , [place] [facility] 5 15:38:18 Anemia 300396832 Active 2024 Violette Dawn CMA null, [place] [facility] 5 14:17:58 Nausea and vomiting 57311674 Active 2024 Maria Luisa Rendon MD [address], [place], [address] , [place] [facility] 11:49:31 Abnormal weight loss 959098377 Active 2024 Violette Dawn CMA null, [place] [employer] [facility] 15:05:53 Problem Notes None recorded. Procedures Surgical History Date Name Laterality Status Provider Name and Address Organization Details Recorded Time 11/21/19 Medicare Wellness CPT Code, subsequent completed Candelaria Pino RN [facility] 11/21/2023 16:10:12 09/30/19 Most Recent Bone Density completed Not Available [facility] 06/06/2022 12:45:05 04/12/19 Date of Last Colonoscopy completed Not Available [facility] 06/06/2022 12:45:05 Imaging Results Imaging Date Name Status LastModified by Organiz ation Details LastModified Time 04/27/2024 MAMMO, screening, digital, bilateral completed [address], [address], 04/27/2024 17:43:35 04/27/2024 bone density completed [address] [place] [address], [address], 04/29/2024 09:54:44 06/05/2024 XR, chest completed [address] [place] [address], [address], 06/06/2024 08:33:45 Procedure Notes None recorded. Medical Equipment None Reported. Allergies Allergen ID Allergen Name Allergen Category Reaction Reaction Severity Criticality Documentation Date Start Date Code Code System Note Provider Name and Address Organization Details Recorded Time 63889 Iodinated contrast media (substanc e) medicatio n Not available Not available Not available 06/06/2022 37774 2003 SNOMED Not Available [facility] 12:47:59 Medications Name Sig Start Date [...] Available Not Available Fish Oil 07/04 completed 47641 mg once a day Not Available Not [...] Available No t Available FreeStyle Grace 2 [place] use as directed for checking blood sugars active Not Available Not Available No t Available Vitals Date Recorded Body height Body mass index (BMI) Body weight Heart rate Body temperature Oxygen saturation Oxygen saturation in Arterial blood by Pulse oximetry Systolic blood pressure Diastolic blood pressure Provider Name and Address Organization Details Last Updated DateTime 4 149.86 cm 33.1 kg/m2 54137.1 5 g 90 /min 97 [degF] 96 % 96 % 120 mm[Hg] 60 mm[Hg] [employer] 4 15:54:26 Date Recorded Body height Body mass index (BMI) Body weight Heart rate Body temperature Oxygen saturation Oxygen saturation in Arterial blood by Pulse oximetry Systolic blood pressure Diastolic blood pressure Provider Name and Address Organization Details Last Updated DateTime 4 149.86 cm 32.1 kg/m2 93554.1 9 g 102 /min 97.3 [degF] 97 % 97 % 132 mm[Hg] 70 mm[Hg] EV [place] [employer] 4 16:00:50 Date Recorded Pain severity - 0-10 verbal numeric rating [Score] - Reported Provider Name and Address Organization Details Last Updated DateTime 11/21/2023 0 Candelaria Pino RN [employer] 11/21/2023 16:10:30 Date Recorded Body height Body mass index (BMI) Body weight Heart rate Body temperature Oxygen saturation Oxygen saturation in Arterial blood by Pulse oximetry Systolic blood pressure Diastolic blood pressure Provider Name and Address Organization Details Last Updated DateTime 5 149.86 cm 30.3 kg/m2 79010.8 6 g 69 /min 97 [degF] 96 % 96 % 118 mm[Hg] 60 mm[Hg] Susielauren [employer] 5 15:23:00 Date Recorded Body height Body mass index (BMI) Body weight Heart rate Body temperature Oxygen saturation Oxygen saturation in Arterial blood by Pulse oximetry Systolic blood pressure Diastolic blood pressure Provider Name and Address Organization Details Last Updated DateTime 5 149.86 cm 29.7 kg/m2 77343.0 8 g 77 /min 98.2 [degF] 95 % 95 % 122 mm[Hg] 68 mm[Hg] Susie Davidmy [employer] 5 15:15:25 Date Recorded Body height Body mass index (BMI) Body weight Heart rate Body temperature Oxygen saturation Oxygen saturation in Arterial blood by Pulse oximetry Systolic blood pressure Diastolic blood pressure Provider Name and Address Organization Details Last Updated DateTime 5 149.86 cm 29.1 kg/m2 80546.3 g 97 /min 97 [degF] 94 % 94 % 142 mm[Hg] 70 mm[Hg] Susie Nicole [employer] 5 15:22:16 Social History Question Answer Notes LastModified by Organization Details LastModified Time Tobacco Smoking Status Former Smoker Not Available [facility] 06/06/2022 12:45:02 Do You Have An Advance Directive? Yes [email or web address].0301 [id number] Information not available 06/06/2022 What Is Your Level Of Alcohol Consumption? None MIGRATION.0301 [id number] Information not available 06/06/2022 Are You Blind Or Do You Have Difficulty Seeing? No MIGRATION.0301 [id number] Information not available 06/06/2022 Are You Deaf Or Do You Have Serious Difficulty Hearing? No MIGRATION.0301 [id number] Information not available 06/06/2022 What Type Of Diet Are You Following? REGULAR MIGRATION.0301 [id number] Information not available 06/06/2022 Have There Been Any Changes To Your Family Or Social Situation? Yes Recently Lost Her Spouse [email or web address] Information not available 11/21/2023 What Is The Fluoride Status Of Your Home? Fluoridated MIGRATION.0301 [id number] Information not available 06/06/2022 When Did You Quit Smoking? 16+yearssincelastc igarette MIGRATION.0301 [id number] Information not available 06/06/2022 Are There Any Guns Present In Your Home? No MIGRATION.0301 [id number] Information not available 06/06/2022 Do You Use Insect Repellent Routinely? No [email or web address] Information not available 11/21/2023 [facility] MIGR[facility].0301 [id number] Information not available 06/06/2022 Are You Able To Care For Yourself? Yes Information not available 11/21/2023 Are You Blind Or Do Yo Have Difficulty Seeing? No Information not available 11/21/2023 Are You Deaf Or Do You Have Serious Difficulty Hearing? No [email or web address] Information not available 11/21/2023 Live Alone Of With Others? Alone [email or web address] Information not available 11/21/2023 Are You Following A Low Salt Diet? No MIGRATION.0301 [id number] Information not available 06/06/2022 Do You Have A Medical Power Of Rubber Cutter? Yes MIGRATION.0301 [id number] Information not available 06/06/2022 What Was The Date Of Your Most Recent Tobacco Screening? 11/21/2023 [email or web address] Information not available 11/21/2023 Do You Have Any Pets? No [email or web address] Information not available 11/21/2023 What Is Your Relationship Status? [email or web address] Information not available 11/21/2023 Do You Use Your Seat Belt Or Car Seat Routinely? Yes MIGRATION.0301 [id number] Information not available 06/06/2022 Do You Have Smoke And Carbon Monoxide Detectors In Your Home? Yes MIGRATION.0301 [id number] Information not available 06/06/2022 At What Age Did You Start Smoking Tobacco? 8 MIGRATION.0301 775104 Information not available 06/06/2022 Do You Use Any Illicit Or Recreational Drugs? No MIGRATION.0301 [id number] Information not available 06/06/2022 Do You Use Sunscreen Routinely? No [email or web address] Information not available 11/21/2023 Has Tobacco Cessation Counseling Been Provided? No MIGRATION.0301 [id number] Information not available 06/06/2022 Have You Recently Traveled Abroad? No [email or web address] Information not available 11/21/2023 Do You Have Any Dietary Restrictions? Yes MIGRATION.0301 [id number] Information not available 06/06/2022 Sex: Unknown Functional Status Question Answer Note LastModified by Organizat ion Details LastModified Time Do you have difficulty walking or climbing stairs? Yes [id number].[id number] Information not available 06/06/2022 Do you have transportation difficulties? No MIGRATION.617255 7556 Information not available 06/06/2022 Are you able to walk? YESASSIST uses a cane MIGRATION.523399 9649 Information not available 06/06/2022 Do you have difficulty doing errands alone? No [email or web address] Information not available 11/21/2023 Are you able to care for yourself? Yes MIGRATION.625677 6664 Information not available 06/06/2022 Do you have difficulty dressing or bathing? No MIGRATION.355962 0227 Information not available 06/06/2022 What is your exercise level? None MIGRATION.093360 4144 Information not available 06/06/2022 Mental Status Question Answer Note LastModified by Organizat ion Details LastModified Time Do you have difficulty concentrating, remembering or making decisions? No [id number].[id number] 6 Information not available 06/06/2022 Family History [...] HAVE YOU BEEN HOSPITALIZED OR SEEN IN [facility] IN THE PAST YEAR ? [...] N ALZHEIMER'S DISEASE N Brain Problems N DEMENTIA N HERPES N SEIZURES/EPILEPSY N HEADACHES/MIGRAINES N VASCULAR DISEASE N PACEMAKER N Blood Disorder N DIZZINESS N HEART DISEASE/HEART PROBLEMS N KIDNEY DISEASE N MULTIPLE SCLEROSIS N CANCER: SPECIFY N CARDIAC ARRHYTHMIA N ANESTHESIA COMPLICATIONS N ATRIAL FIBRILLATION N [...] 3 completed Maria Luisa Rendon MD [address] [address], [place], [address], [facility] 03/29/2023 16:10:02 SARS-COV-2 (COVID-19) vaccine, UNSPECIFIED 1 completed Not Available [facility] 06/06/2022 12:47:55 SARS-COV-2 (COVID-19) vaccine, UNSPECIFIED 1 completed Not Available [facility] 06/06/2022 12:47:56 Pneumococcal conjugate PCV 13 0 completed Not Available [facility] 06/06/2022 12:47:56 pneumococcal polysaccharide PPV23 7 completed Not Available [facility] 06/06/2022 12:47:56 Influenza, high-dose, quadrivalent, PF 1 completed Not Available [facility] 06/06/2022 12:47:56 Past Encounters Encounter ID Performer Location Encounter Start Date Encounter Closed Date Diagnosis/Indication Diagnosis SNOMED-CT Code Diagnosis ICD10 Code Diagnosis Note [id number] [facility] Internal Med Juan [place]roberta [address] [place] [address] 06/21/2020 00:00:00 06/21/2020 15:56:12 [id number] [facility] [place] [address] 10/28/2020 00:00:00 10/28/2020 16:59:34 [id number] [facility] Internal Med [place] [address] [address] 02/17/2021 00:00:00 02/17/2021 16:20:26 [id number] [facility] Internal Med [place] [address] [place] [address] y , [place] [address] 07/04/2021 00:00:00 07/04/2021 16:03:08 [id number] [facility] Internal [facility] [place] [address] [place] [address] y , [place] [address] 12/01/2021 00:00:00 12/01/2021 15:45:44 [id number] [facility] Internal [facility] [place] [address] [place] [address] y , [place] [address] 04/06/2022 00:00:00 04/06/2022 15:32:43 [id number] Maria Luisa Rendon MD [facility] Internal [facility] [place] [address] [place] [address] y , [place] [address] 08/03/2022 15:12:52 08/03/2022 16:09:36 Chronic obstructive pulmonary disease 44171233 J44.9 Essential hypertension 85854010 I10 Pure hypercholesterolemia 693690871 E78.00 Type 2 kim betes mellitus without complication 322764631 E11.9 [id number] Maria Luisa Rendon MD [facility] Internal Med [place] [address] [place] [address] y , [place] [address] 11/30/2022 15:16:19 11/30/2022 16:02:36 Essential hypertension 13289387 I10 Pure hypercholesterolemia 022815290 E78.00 Type 2 kim betes mellitus without complication 805906747 E11.9 Chronic ob structive pulmonary disease 58037577 J44.9 Obese class I [id number] 61926 E66.9 [id number] Maria Luisa Rendon MD [facility] Internal [facility] [place] [address] [place] [address] y , [place] [address] 03/29/2023 15:37:04 03/29/2023 16:18:08 Administration of influenza vaccine 09707489 Z23 Chronic ob structive pulmonary disease 12198313 J44.9 Pure hypercholesterolemia 776772710 E78.00 Type 2 kim betes mellitus without complication 454553820 E11.9 Essential hypertension 90414375 I10 [id number] Maria Luisa Rendon MD [facility] Internal Med [place] [address] [facility] y , [place] [address] 07/26/2023 15:53:47 07/26/2023 16:24:13 Essential hypertension 69808253 I10 Pure hypercholesterolemia 304415178 E78.00 Chronic ob structive pulmonary disease 64296537 J44.9 Chronic back pain 972288 002 M54.9 Type 2 kim betes mellitus without complication 176460295 E11.9 [id number] Maria Luisa Rendon MD [facility] Internal Med [place] [address] [facility] , [place] [address] 11/21/2023 15:53:50 11/21/2023 16:42:52 Adult health examination 839744628 Z00.00 Screening for disorder 203377121 Z13.9 Chronic ob structive pulmonary disease 71874631 J44.9 Pure hypercholesterolemia 828617123 E78.00 Essential hypertension 56263818 I10 Type 2 kim betes mellitus without complication 018767070 E11.9 Obese class I 8511572486 81953 E66.9 [id number] Maria Luisa Rendon MD [facility] Primary Care [facility] [address] [place] [address] 04/23/2024 15:09:25 04/23/2024 15:51:38 Chronic obstructive pulmonary disease 49809781 J44.9 Essential hypertension 87736775 I10 Pure hypercholesterolemia 785288244 E78.00 Type 2 kim betes mellitus without complication 767564896 E11.9 [id number] Maria Luisa Rendon MD [facility] [address] [place] [address] 06/04/2024 14:52:23 06/04/2024 15:57:49 Abdominal pain 40774611 R10.9 Chronic ob structive pulmonary disease 55696949 J44.9 Essential hypertension 88726676 I10 Pure hypercholesterolemia 653296801 E78.00 Type 2 kim betes mellitus without complication 324732974 E11.9 [id number] Maria Luisa Rendon MD [facility] [address] [place] [address] 06/11/2024 14:51:04 06/11/2024 15:56:18 Gastrointestinal hemorrhage 41517296 K92.2 Essential hypertension 51539801 I10 Chronic ob structive pulmonary disease 80626203 J44.9 Type 2 kim betes mellitus 78693478 E11.29 Health Concerns Section Related Observation LastModified by Organization Detai ls LastModified Time None Recorded Concern Status LastModified by Organization Details LastModified Time None Recorded Advance Directives Directive Y: Payers Encounter Date Sequence Insurance Name Policy Number Policy Anderson Covered Member ID Anderson Member ID Guarantor Name 07/26/[address] [facility] - [employer] - [employer] - MEDICARE COMPLETE PLAN 2 (MEDICARE REPLACEMENT HMO) [id number] Tyra Justice [id number] Tyra Justice 11/21/[address] [facility] - [employer] - [employer]URE [employer] - MEDICARE COMPLETE PLAN 2 (MEDICARE REPLACEMENT HMO) [id number] Tyra Justice [id number] Tyra Justice 04/23/[address] [facility] - [employer] - [employer] - MEDICARE COMPLETE PLAN 2 (MEDICARE REPLACEMENT HMO) [id number] Tyra Justice [id number] Tyra Justice 06/04/[address] [facility] - [employer] - [employer] - MEDICARE COMPLETE PLAN 2 (MEDICARE REPLACEMENT HMO) [id number] Tyra Justice [id number] Tyra Justice 06/11/[address] [facility] - [employer] - [employer]URE [employer] - MEDICARE COMPLETE PLAN 2 (MEDICARE REPLACEMENT HMO) [id number] Tyra Justice [id number] Tyra Justice Notes Date Note Type Note [...] Adverse Drug Reactions ReviewedAvandia Swelling Vaccination and Lcsffhcpzoja8252-32 Yjfontndj9832-84 Covid Btqlkc7435-45 Prevnar 13 Kn9092-29 Pneumovax Surgical Ykimorc7997-61 Left Rotator Cuff Biuqvu9213-03 Sebacesou aulh8375-24 Qupeaumwwb9531-73 Rt. Breast Tlsqsj1931-03 Pzveqhizaq9723-07 Skaggqydkycscisy8251-68 Dndsghavfxzunx7415-70 [facility] KMB4320-13 Tnfgsqlebutgd9861-67 Lt. Hip Surgery Preventative Quenhss8101/22/2023 ALBUMIN 4.4 G/DL N1 MICRO ALBUMIN 17.9 MG/DL N1 HAIC 6.9 % OF TOTAL HGB H009/29/2021 MAMMOGRAM / DEXA SCAN04/12/2021 COLONOSCOPY (5 YEARS) CQEVGMFXBWBHA29/07/2009 UPPER ENDOSCOPY Social HistoryQuit smoking in 1990. Smoked up to 4 packs per day at times was at 2.5 packs daily when she quit. Total pack years approximately 50. Does drink socially. Currently retired. Family HistoryMother 60 y/o from CA of pancreasFather at 80 from [place] of lung, [place], [place] and aneurysm.Three brothers. One living alcoholic(1) CAD(2), [...] 0.60-0.95 MG/DLEGFR 75 > OR = 60 ML/MIN/1.37Z6PVUBLTPQV, TOTAL 0.5 0.2-1.2 MG/DLALKALINE PHOSPHATASE 97 37-153 U/LAST 17 10-35 U/LALT 12 6-29 U/L Maria Luisa Rendon MD [address] [facility], [facility] [address], [place], [address], [place] [facility] 07/26/2023 16:16:44 [...] lesions. The last HAIC was done by asian art curator. Average blood sugars 125-150 mg%. Checking sugars [...] offered to be evaluated and instructed by model and mold maker on weight loss diet. Active Medication ListAmaryl [...] Adverse Drug Reactions ReviewedAvandia Swelling Vaccination and Rjguqqnaenmw1338-25 Qqaakcqmm7534-86 Covid Xiulic6899-32 Prevnar 13 Pu1832-28 Pneumovax Surgical Slwikjm6294-90 Left Rotator Cuff Onbsdc2581-27 Sebacesou wsyd2417-52 Zjigmbnyxh1754-99 Rt. Breast Cpfdfq8364-49 Pclbkalonk8741-79 Dsvdaytqyvdpevun0729-09 Ixztsysctvzvjr9577-62 [facility] JKV6552-65 Ktlkrcmqrxjeo5243-58 Lt. Hip Surgery Preventative Testing( ) 08/30/2023 [...] at 81 from CA of lung, [place], [place] and aneurysm.Three brothers. One living alcoholic(1) CAD(2), DM(1)Two sisters one has Ca of colon. One CAD Maria Luisa Rendon MD [address] [place] [address], [address], [facility] 11/21/2023 16:34:44 04/23/19 25 text/htm l Patient [...] non healing lesions. [facility] Calculated MB mg%. CGM: [...] INFLUENZA( ) 2019-06 PREVNAR 13 GC(X) 2020-07 COVAmarin Surgical Sccwlzb1988-61 Left Rotator Cuff Igqggc8638-68 Sebacesou wuak5341-60 Ujgazwhjga0291-47 Rt. Breast Xdxcvw7054-64 Bzdqcxksca8838-58 Nmqantdpnmprhqpd2200-89 Lltrkzkynnbebl2772-89 [facility] AOH4562-95 Srothmhiookcx7681-90 Lt. Hip Surgery Preventative Testing( ) 01/16/2024 [...] at 81 from CA of lung, [place], [place] and aneurysm.Three brothers. One living alcoholic(1) CAD(2), DM(1)Two sisters one has Ca of colon. One CAD Maria Luisa Rendon MD [address], [place], [address], [place] [facility] 04/23/2024 15:35:44 06/04/19 25 [...] ) 2019- PREVNAR 13 GC(X) 2020-07 COVID [employer] Surgical Kzvtros3533-99 Left Rotator Cuff Fjhunz5853-87 Sebacesou omld6835-87 Spnvvkrdrd4254-37 Rt. Breast Nvrsqs9074-96 Kbupdhzwet0875-48 Lfsdxsowtcroqufh0999-01 Octrwyjryzccmz1444-33 [facility] TTH0711-49 Akfcinxxxsaxc1583-63 Lt. Hip Surgery Preventative Testing( ) 04/27/2024 [...] at 81 from CA of lung, [place], [place] and aneurysm.Three brothers. One living alcoholic(1) CAD(2), DM(1)Two sisters one has Ca of colon. One CAD Maria Luisa Rendon MD [address] [facility], [facility] [address], [place], [address], [facility] 06/04/2024 15:45:35 06/12/19 25 text/htm l Patient [...] Systemic Symptoms:none Medication Reconciliation: from medication list. Crqllwqpzfv88-90-2981: Colonoscopy diverticuli noted in the left colon. [...] ) 2019-06 PREVNAR 13 GC(X) 2020-07 COVID [employer] Surgical Opxhwcl7298-99 Left Rotator Cuff Askrtf2665-08 Sebacesou lxyz7238-16 Jsukiefnxb1364-01 Rt. Breast Ualsjo4448-61 Ztozxuxnch1563-04 Vkwhvtdlulnewnzm8210-25 Mwmphgbyucvedt8366-56 [facility] QGD0951-65 Hqbilmsjenpyz1902-67 Lt. Hip Surgery Preventative Testing( ) 06/11/2024 [...] at 81 from CA of lung, [place], [place] and aneurysm.Three brothers. One living alcoholic(1) CAD(2), DM(1)Two sisters one has Ca of colon. One CAD Maria Luisa Rendon MD [address] [facility], [facility] [address], [place], [address], [place] [facility] 06/11/2024 15:48:40 OBGyn Episode No OBEpisode recorded.
--- OUTSIDE RECORDS SUMMARY | 2024-06-30 18:30 | XMS_ITS | Continuity of Care Document ---
Author Organization [facility] Address [address] [place] [address] [facility] [address] [place] [address] Phone Care Team Providers Care Energy Technician Name Role Phone Rian Santizo Unavailable Unavailable Procedures Procedure Date Eye Exam, New Patient Refraction Advance Directives Directive Yes / No Effective Date File Name No Information Encounters Encounter Description Practice Location Reason(s) For Visit Diagnoses Date Provider Providers Copied on Encounter [facility], [address], [place], [place], [id number], [place] tel:[phone] [facility] No Information [address]. [address] [facility] [address], [address], [place]. tel:[phone] Family History Family Member Type Diagnosis Age [...]
== END 2024-06-30 16:08 | disposition home or self-care (01) ==
PROVIDERS: PCP Internal Medicine; Visit Provider Internal Medicine
DX: K57.92 Diverticulitis of intestine, part unspecified, without perforation or abscess without bleeding (principal); N20.0 Calculus of kidney; T18.4XXA Foreign body in colon, initial encounter; X58.XXXA Exposure to other specified factors, initial encounter; R91.8 Other nonspecific abnormal finding of lung field
CPT/HCPCS: 71250; 74176

== ENCOUNTER 2024-08-27 12:53 | Emergency (ER) | payer MEDICARE, SELFPAY ==
[2024-08-27 12:54] VITALS: BP 104/49; PULSE 47; RESP 14; TEMP 36.7; O2SAT 98
[2024-08-27 13:02] LABS: Glucose Point of Care 93 mg/dl (65-105)
[2024-08-27 13:55] VITALS: BP 108/76; PULSE 46; RESP 15; O2SAT 100
--- OUTSIDE RECORDS SUMMARY | 2024-08-27 14:53 | XMS_ITS | Continuity of Care Document ---
Author Organization [facility] Address [address] [place] [address] [facility] [address] [place] [address] Phone Care Team Providers Care Ham Pumper Name Role Phone Rian Santizo Unavailable Unavailable Procedures Procedure Date Eye Exam, New Patient Refraction Advance Directives Directive Yes / No Effective Date File Name No Information Encounters Encounter Description Practice Location Reason(s) For Visit Diagnoses Date Provider Providers Copied on Encounter [facility], [address], [place], [place], [id number], [place] tel:[phone] [facility] No Information [address] Modi. [address] [facility] [address], [place], [address], [place]. tel:[phone] Family History Family Member Type Diagnosis Age At Onset No Information Payers Payer name Insurance type Covered constitution party ID Authoriza tion(s) No Information Social [...]
--- OUTSIDE RECORDS SUMMARY | 2024-08-27 14:53 | XMS_ITS | Continuity of Care Document ---
Author Organization [place] - [place] [facility], [facility] Internal Med [facility] [[email or web address]] 24 Address [address] [facility] [address] [place] [address] Care Team Providers Care Technical System Analyst Name Role Phone MARIA LUISA RENDON Primary Care Provider MARIA LUISA RENDON Referring Provider [phone] Assessment No assessment recorded. Plan of Treatment Reminders Order Date Submit Date Provider Last Modified By Organization Details Last Modified Time Details Appointments None recorded. Lab HbA1c (hemoglobin A1c), blood 2024 025 [facility], [address], [place], [address], 5 15:45:19 lipid panel, serum 2024 025 [facility], [address], [place], [address], 5 15:45:19 CMP, serum or plasma 2024 025 [facility], [address], [place], [address], 5 15:45:21 CBC w/ auto diff 2024 025 [facility], [address], [place], [address], 5 15:45:20 Referral None recorded. Procedures None recorded. Surgeries None recorded. Imaging None recorded. Medication Orders furosemide 20 mg tablet [id number] [place] [address] [id number], [address] [facility], [place], [place], [id number], 5 15:44:29 Patient TargetsNo targets recorded. Patient Instructions Encounter Date Encounter Id Patient Instructions Last Modified By Organization Details Last Modified Time 08/26/2024 [id number] Follow-up obstructive lung disease, essential hypertension, hyperlipidemia, type 2 diabetes and history of recent diverticulitis of the colon treated with antibiotics in the form of Cipro and metronidazole. Clinically doing better. Will check blood work consisting of CMP, lipid, CBC and hemoglobin A1c. Continue on current medications at this time. Will add some Lasix 20 mg once daily for some intermittent swelling of the lower extremities. Was instructed take this one daily on a p.r.n. Basis if edema is noted. Follow Up: 4 Months Approximate Date: 12/24/2024 Portions of record are template driven. When necessary additional context will be provided. Additionally some portions have been created with voice recognition software. Occasional wrong-word or [id number] substitutions may have occurred due to the inherent limitations of voice recognition software. Read the chart carefully and recognize, using context, where substitutions may have occurred. Created: Maria Luisa Rendon M.D. 08.26.2024 02:44 PM [email or web address] Not available 08/26/2024 15:44:43 Reason for Referral None Reported. Problems Name Problem SNOMED Code Status Onset Date Resolution Date Notes Provider Name and Address Organization Details Recorded Time Renewal of prescripti on Active 2021 Not Available [facility] 3 12:45:37 Chronic obstructiv e pulmonary disease 61508248 Active 2020 Not Available [facility] 3 12:45:37 Senile osteoporos is 82227612 Active 2021 Not Available [facility] 3 12:45:37 Pure hyperchole sterolemia 477438663 Active 2020 Not Available [facility] 3 12:45:37 Low back pain 854115481 Active 2021 Not Available [facility] 3 12:45:37 Recurrent dislocatio n of shoulder region 51611018 Active Not Available [facility] 3 12:45:37 Enthesopat hy of hip region 93607513 Active Not Available [facility] 3 12:45:37 Vitamin D deficiency 53561969 Active 2021 Not Available [facility] 3 12:45:38 Disorder of rotator cuff 504526889 Active Not Available [facility] 3 12:45:38 History of polyp of colon 878574758 Active 2020 Not Available [facility] 3 12:45:38 Disorder of bursa of shoulder region 38998949 Active Not Available [facility] 3 12:45:38 Essential hypertensi on 37731535 Active 2020 Not Available [facility] 3 12:45:38 Pulmonary hypertensi on 25468977 Active 2021 Not Available [facility] 3 12:45:38 Chronic back pain 010692456 Active 2022 Violette Dawn CMA null, [place] [facility] [place] [facility] 3 14:39:22 Obese class I 7190001958363 07 Active 2022 Maria Luisa Rendon MD [address], [place], [address] , [facility] - [facility] 3 15:47:21 Depressive disorder 16733620 Active 2023 Violette Dawn CMA null, [place] [facility] 4 17:35:48 Trigger finger of right hand 9526871440151 9101 Active 2024 Fariba Valdez null, [place] [facility] 5 15:49:08 Abdominal pain 84772712 Active 2024 Maria Luisa Rendon MD [address], [place], [address] , [place] [facility] 5 15:37:51 Gastrointe stinal hemorrhage 20703446 Active 2024 Maria Luisa Rendon MD [address], [place], [address] , [facility] - [facility] 5 15:38:18 Anemia 612271247 Active 2024 Violette Dawn CMA null, [facility] [employer] [facility] 5 14:17:58 Nausea and vomiting 76521530 Active 2024 Maria Luisa Rendon MD [address], [place], [address] , [facility] [employer] [facility] 5 11:49:31 Abnormal weight loss 690699041 Active 2024 Violette Dawn CMA null, [facility] [employer] [facility] 5 15:05:53 Diverticul itis of colon 522981807 Active 2024 Maria Luisa Rendon MD [address], [place], [address] , [facility] [employer] [facility] [employer] [facility] 5 17:41:19 Type 2 diabetes mellitus 36983196 Active 2024 Maria Luisa Rendon MD [address], [place], [address] , [facility] [employer] [facility] [employer] [facility] 5 15:34:25 Diverticul itis 325616598 Active 2024 Maria Luisa Rendon MD [address], [place], [address] , [facility] [employer] [facility] [employer] [facility] 5 15:35:38 Edema of lower extremity 095896283 Active 2024 Maria Luisa Rendon MD [address], [place], [address] , [facility] [employer] [facility] [employer] [facility] 5 15:43:13 Problem Notes None recorded. Procedures Surgical History Date Name Laterality Status Provider Name and Address Organization Details Recorded Time 11/21/19 Medicare Wellness CPT Code, subsequent completed Candelaria Pino RN [facility] [employer] [facility] 11/21/2023 16:10:12 09/30/19 22 Most Recent Bone Density completed Not Available [facility] 06/06/2022 12:45:05 04/12/19 22 Date of Last Colonoscopy completed Not Available [facility] 06/06/2022 12:45:05 Imaging Results None recorded. Procedure Notes None recorded. Medical Equipment None Reported. Allergies Allergen ID Allergen Name Allergen Category Reaction Reaction Severity Criticality Documentation Date Start Date Code Code System Note Provider Name and Address Organization Details Recorded Time 84118 Iodinated contrast media (substanc e) medicatio n Not available Not available Not available 06/06/2022 66547 2003 SNOMED Not Available [facility] 3 12:47:59 Medications Name Sig Start Date [...] completed Not Available Not Available Not Available metronidaz ole 500 mg tablet TAKE 1 TABLET BY MOUTH EVERY 8 HOURS 08/26 completed Not Available Not Available Not Available ciprofloxa kaylene 500 mg tablet TAKE 1 TABLET BY MOUTH TWICE DAILY FOR 10 DAYS 08/26 completed Not Available Not Available Not Available theophylli ne ER 300 mg tablet,ext ended release,12 hr TAKE 1 TABLET BY MOUTH TWICE DAILY 08/26 completed Not Available Not Available Not Available terbinafin e HCl 250 mg tablet [...] TAKE 1 TABLET BY MOUTH EVERY DAY 2024 active Not Available Not Available Not Avai lable glimepirid e 4 mg tablet TAKE 1 TABLET BY MOUTH TWICE DAILY active Not Available Not Available No t Available aspirin 81 mg chewable tablet Chew 1 tablet every day by oral route. 2012 active Not Available Not Available Not Avai lable furosemide 20 mg tablet TAKE 1 TABLET BY MOUTH EVERY DAY NEEDED FOR SWELLING active Not Available Not Available No t Available metoprolol succinate ER 25 mg tablet,ext ended [...] Available Not Available Fish Oil 07/04 completed 99805 mg once a day Not Available Not [...] Available No t Available FreeStyle Grace 2 [place] use as directed for checking blood sugars active Not Available Not Available No t Available Vitals Date Recorded Body height Body mass index (BMI) Body weight Heart rate Body temperature Oxygen saturation Oxygen saturation in Arterial blood by Pulse oximetry Systolic blood pressure Diastolic blood pressure Provider Name and Address Organization Details Last Updated DateTime 5 149.86 cm 28.6 kg/m2 34401.3 2 g 60 /min 97 [degF] 96 % 96 % 122 mm[Hg] 58 mm[Hg] Susie Nicole [place] [facility] [place] [employer] [facility] 5 15:25:37 Social History Question Answer Notes LastModified by Organization Details LastModified Time Tobacco Smoking Status Former Smoker Not Available [facility] 06/06/2022 12:45:02 Do You Have An Advance Directive? Yes [id number] Information not available 06/06/2022 Are You Blind Or Do You Have Difficulty Seeing? No MIGRATION.030 858036 Information not available 06/06/2022 Are You Deaf Or Do You Have Serious Difficulty Hearing? No MIGRATION.030 511716 Information not available 06/06/2022 What Type Of Diet Are You Following? REGULAR MIGRATION.030 450841 Information not available 06/06/2022 Have There Been Any Changes To Your Family Or Social Situation? Yes Recently Lost Her Spouse [email or web address] Information not available 11/21/2023 What Is The Fluoride Status Of Your Home? Fluoridated MIGRATION.0301 031842 Information not available 06/06/2022 When Did You Quit Smoking? 16+yearssincelastc igarette MIGRATION.0301 127674 Information not available 06/06/2022 Are There Any Guns Present In Your Home? No MIGRATION.0301 073024 Information not available 06/06/2022 Do You Use Insect Repellent Routinely? No [email or web address] Information not available 11/21/2023 Where Do You Live? [place] MIGRATION.0301 239742 Information not available 06/06/2022 Are You Able To Care For Yourself? Yes [email or web address] Information not available 11/21/2023 Are You Blind Or Do Yo Have Difficulty Seeing? No [email or web address] Information not available 11/21/2023 Are You Deaf Or Do You Have Serious Difficulty Hearing? No [email or web address] Information not available 11/21/2023 Live Alone Of With Others? Alone [email or web address] Information not available 11/21/2023 Are You Following A Low Salt Diet? No MIGRATION.0301 933590 Information not available 06/06/2022 Do You Have A Medical Power Of Highway Patrol Officer? Yes MIGRATION.0301 866744 Information not available 06/06/2022 What Was The Date Of Your Most Recent Tobacco Screening? 11/21/2023 [email or web address] Information not available 11/21/2023 Do You Have Any Pets? No [email or web address] Information not available 11/21/2023 What Is Your Relationship Status? [email or web address] Information not available 11/21/2023 Do You Use Your Seat Belt Or Car Seat Routinely? Yes MIGRATION.0301 932303 Information not available 06/06/2022 Do You Have Smoke And Carbon Monoxide Detectors In Your Home? Yes MIGRATION.0301 417913 Information not available 06/06/2022 At What Age Did You Start Smoking Tobacco? 8 MIGRATION.0301 689367 Information not available 06/06/2022 Do You Use Sunscreen Routinely? No [email or web address] Information not available 11/21/2023 Has Tobacco Cessation Counseling Been Provided? No MIGRATION.0301 882594 Information not available 06/06/2022 Have You Recently Traveled Abroad? No [email or web address] Information not available 11/21/2023 Do You Have Difficulty Walking Or Climbing Stairs? Yes MIGRATION.0301 389768 Information not available 06/06/2022 Do You Have Any Dietary Restrictions? Yes MIGRATION.0301 957566 Information not available 06/06/2022 Sex: Unknown Functional Status Question Answer Note LastModified by Organizat ion Details LastModified Time Do you use any illicit or recreational drugs? No MIGRATION.383450 7666 Information not available 06/06/2022 What is your level of alcohol consumption? None MIGRATION.864201 7161 Information not available 06/06/2022 Do you have transportation difficulties? No MIGRATION.026713 8321 Information not available 06/06/2022 Are you able to walk? YESASSIST uses a cane MIGRATION.756758 6230 Information not available 06/06/2022 Do you have difficulty doing errands alone? No [email or web address] Information not available 11/21/2023 Are you able to care for yourself? Yes MIGRATION.572917 8186 Information not available 06/06/2022 Do you have difficulty dressing or bathing? No MIGRATION.492530 4382 Information not available 06/06/2022 What is your exercise level? None MIGRATION.152068 3935 Information not available 06/06/2022 Mental Status Question Answer Note LastModified by Organizat ion Details LastModified Time Do you have difficulty concentrating, remembering or making decisions? No MIGRATION.994324750 6 Information not available 06/06/2022 Family History Nothing Reported. Medical History Condition Response BLINDNESS N NERVE DISEASE N RHEUMATIC FEVER N BLADDER PROBLEMS N KIDNEY STONES N OTHER # 1 N POLIO N [...] HAVE YOU BEEN HOSPITALIZED OR SEEN IN [facility] IN THE PAST YEAR ? N [...] PF 3 completed Maria Luisa Rendon MD [address] [place] [address], [facility] [[email or web address]] [address], [place], [address], [facility] [employer] 03/29/2023 16:10:02 SARS-COV-2 (COVID-19) vaccine, UNSPECIFIED 1 completed Not Available [facility] 06/06/2022 12:47:55 SARS-COV-2 (COVID-19) vaccine, UNSPECIFIED 1 completed Not Available [facility] 06/06/2022 12:47:56 Pneumococcal conjugate PCV 13 0 completed Not Available [facility] 06/06/2022 12:47:56 pneumococcal polysaccharide PPV23 7 completed Not Available [facility] 06/06/2022 12:47:56 Influenza, high-dose, quadrivalent, PF 1 completed Not Available [employer] 06/06/2022 12:47:56 Past Encounters Encounter ID Performer Location Encounter Start Date Encounter Closed Date Diagnosis/Indication Diagnosis SNOMED-CT Code Diagnosis ICD10 Code Diagnosis Note [id number] Maria Luisa Rendon MD [facility] Internal [facility] [[email or web address] 24 [address] [facility] [address] [place] [address] 08/26/2024 15:09:16 08/26/2024 15:51:53 Chronic obstructive pulmonary disease 64612193 J44.9 Essential hypertension 55438232 I10 Pure hypercholesterolemia 595776768 E78.00 Type 2 kim betes mellitus 22600318 E11.9 Diverticul itis of colon 682517676 K57.32 Edema of l ower extremity 683608886 R60.0 Health Concerns Section Related Observation LastModified by Organization Detai ls LastModified Time None Recorded Concern Status LastModified by Organization Details LastModified Time None Recorded Payers Encounter Date Sequence Insurance Name Policy Number Policy Anderson Covered Member ID Anderson Member ID Guarantor Name 08/26/2024 1 [facility] - [employer] - [employer]URE [employer] - MEDICARE COMPLETE PLAN 2 (MEDICARE REPLACEMENT HMO) [id number] Tyra Justice [id number] Tyra Justice Notes Date Note Type Note Provider Name and Address Organization Details Recorded Time 08/27/19 25 text/htm l Patient Name: Tyra JusticeDate Of Service: Saturday ( 08.26.2024 ): 1940 Age: 84 There has been approximately a 2.5 lb weight loss since 06/11/2024. This represents approximately a 1.7% change in weight. Weight change attributable to lifestyle changes. Vital Signs:Blood Pressure: Sitting Rt. Arm 122/58Pulse: Sitting 60 /min and RegularRespiratory Rate: 16Height 59 in or 1.5 mWeight 141.5 lb or 64.2 kgBMI 28.6Temperature: 97 F or 36.1 CPulse Oximetry: 96 % at rest on no oxygen Chief Complaint: Addressed in HPI Problems or conditions discussed in the HPI were the only ones reviewed during the encounter.Only social and family history addressed in the HPI were reviewed during this encounter. Attendant(s): NoneConstitutional and Systemic Symptoms:none Medication Reconciliation: from medication list. [id number]: Colonoscopy diverticuli noted in the left colon. [...] celiac sprue. History of Present Illness #1. COPD: Hx of Emphysema currently stable. There has been no interval change in exercise tolerance an shortness of breath. No change in sputum production, color or consistency. No fever, chills, weight loss or other constitutional symptoms. Gold Scale: Severe. MRC Scale: normal walking. Smoking: not currently smoking Current medications: Breztri and Proair Hfa Using nebulizer Treatments: No. Uses does not [...] regarding treatment of cholesterol management and include Atorvastatin Calcium. #4. Type II Diabetes: Has [...] eye doctor within the last year. Control: Inadequate control > 8 #5. Hx of diverticulitis. No interval complaints of pain, fever, chills or other constitutional symptoms. There has been no change in bowel habits or frequency. No change in the caliber of the stool. Active Medication ListAmaryl 4 MG (TABLET - ORAL) One DailyGlucophage 500 MG (TABLET - ORAL) One Bid For Type II DmAspirin 81 MG One DailyOs-fernie D One BidZoloft 50 MG (TABLET - ORAL) Once DailyLantus Solostar Pen 100 UNITS/ML 40 Units HsLisinopril [...] Calcium 40 MG (TABLET - ORAL) Once DailyBreztri 160; 4.8; UG; UG AEROSOL, METERED Two Puffs Twice Daily Adverse Drug Reactions ReviewedAvandia Swelling Vaccination and ImmunizationImmunizations and Vaccinations Discussed and Implemented if feasible In the Office. Else referred to pharmacies. ( ) 2007-01 PNEUMOVAX( ) 2024-03 INFLUENZA(X) 2019-06 PREVNAR 13 GC PREVNAR 20 Needed(X) 2020-07 COViovox Surgical Eqmnvyw2576-65 Left Rotator Cuff Jyungw3713-41 Sebacesou lwkz7825-69 Bylyijyxly3207-99 Rt. Breast Qoutve1760-63 Yfysoaajeq2449-69 Avuewyajpheumryj8793-71 Hrgejoegyxmbnh6471-66 [facility] [id number] Myfjsypyllwbr2022-27 Lt. Hip Surgery Preventative TestingPreventative Testing Discussed and Scheduled if Acceptable to Patient ( ) 06/11/2024 Colonoscopy( ) 06/08/2024 Upper Endoscopy [...] at 81 from [place] of lung, [facility], [place] and aneurysm.Three brothers. One living alcoholic(1) CAD(2), DM(1)Two sisters one has Ca of colon. One CAD Maria Luisa Rendon MD [address] [facility], [facility] [[email or web address]] [address], [place], [address], [place] [facility] 08/26/2024 15:53:59 OBGyn Episode No OBEpisode recorded.
--- OUTSIDE RECORDS SUMMARY | 2024-08-27 14:53 | XMS_ITS | Referral Summary ---
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 Gender Identity Not on file Sexual Orientation Not on file Last Filed Vital Signs Vital Sign Reading Time Taken Comments Blood Pressure 136/60 03/18/2024 2:12 PM [employer]ES [employer] OFFICER Pulse 75 03/18/2024 2:12 PM SALES [employer]OTION OFFICER Temperature - - Respiratory Rate - - Oxygen Saturation 97% 03/18/2024 2:12 PM SALES PROMOTION OFFICER Inhaled Oxygen Concentration - - Weight 68.9 kg (152 lb) 03/18/2024 2:12 PM SALES [employer]OMOTION OFFICER Height 149.9 cm (4' 11 ) 03/18/2024 2:12 PM SALES [employer]OTION OFFICER Body Mass Index 30.7 03/18/2024 2:12 PM SALES [employer]OTION OFFICER Plan of Treatment Not on file Procedures [...] Most Recently Relevant to Health Maintenance Insurance [facility] MEDICARE ADVANTAGE U[employer] MEDICARE ADVANTAGE Care Teams Commercial Finance Analyst Relationship Specialty Start Date End Date Dain Rendon MD PCP - General 01/02/10
--- OUTSIDE RECORDS SUMMARY | 2024-08-27 14:53 | XMS_ITS | Data Portability ---
Author Organization [place] [facility] [employer], Main Office Address [address] [place] [address] Care Team Providers Care Sign Letterer Name Role Phone MARIA LUISA RENDON Primary Care Provider [phone] MARIA LUISA RENDON Referring Provider [phone] Assessment No assessment recorded. Plan of Treatment Reminders Order Date Submit Date Provider Last Modified By Organization Details Last Modified Time Details Appointments None recorded. Lab HbA1c (hemoglobin A1c), blood 2024 025 [facility], [address], [place], [address], 5 15:45:19 lipid panel, serum 2024 025 [facility], [address], [place], [address], 5 15:45:19 CMP, serum or plasma 2024 025 [employer] [facility], [address], [place], [address], 5 15:45:21 CBC w/ auto diff 2024 025 [facility], [address] [place], [address], 5 15:45:20 CBC w/ auto diff 2024 025 [facility], [address] [place], [address], 5 03:15:17 CBC w/ auto diff 2024 025 [facility], [address], [place], [address], 5 05:15:32 lipid panel, serum 2024 025 VIVIAN [facility], [address], [place], [address], 5 05:15:29 CMP, serum or plasma 2024 025 VIVIAN [facility], [address], [place], [address], 5 05:15:31 TSH, serum or plasma 2024 025 [facility], [address], [place], [address], 5 05:15:34 T4, free, serum 2024 025 [facility], [address], [place], [address], 5 05:15:33 lipid panel, serum 2024 025 [id number] [facility], [address], [place], [address], 5 17:38:18 CMP, serum or plasma 2024 025 [email or web address] [facility], [address], [place], [address], 5 17:38:18 CBC w/ auto diff 2024 025 [email or web address] [facility], [address], [place], [address], 5 17:38:18 HbA1c (hemoglobin A1c), blood 2024 025 [email or web address] [facility], [address], [place], [address], 5 17:38:18 lipid panel, serum 2023 024 [id number] [facility], [address], [place], [address], 4 16:30:37 CMP, serum or plasma 2023 024 [email or web address] [facility], [address], [place], [address], 4 16:30:37 HbA1c (hemoglobin A1c), blood 2023 024 [email or web address] [facility], [address], [place], [address], 4 16:30:37 Referral None recorded. Procedures None recorded. Surgeries None recorded. Imaging None recorded. Medication Orders furosemide 20 mg tablet 2024 025 [email or web address] [id number], [address] [place], [place], [id number], 5 15:44:29 Feosol 325 mg (65 mg iron) tablet 2024 025 [id number], [address] [facility] [address] [employer] [address] [employer], [place], [place], [id number], 5 15:48:33 Patient TargetsNo targets recorded. Patient Instructions Encounter Date Encounter Id Patient Instructions Last Modified By Organization Details Last Modified Time 11/21/2023 [id number] dementia rating scale-2* [email or web address] Not available 11/21/2023 16:34:38 alcohol misuse* [email or web address] Not available 11/21/2023 16:34:38 depression screening* [email or web address] Not available 11/21/2023 16:34:38 Timed Up and Go test (TUG)* Not available 11/21/2023 16:34:38 multi-dimensiona l health assessment questionnaire* Not available 11/21/2023 16:34:38 Personalized a lt Plan and Screening Recommendations Advance Directives [...] Cancer Screening: Colonoscopy Date Screening Last Performed: Eye Disease Screening: Ordered Recommended today Recommended today, but you have declined Dementia Risk: Low I have no recommendations Depression Screening: Negative Active diagnosis, Continue current treatment plan [email or web address] Not available 11/21/2023 16:17:45 Follow-up hypertension, hyperlipidemia, [...] with voice recognition software. Occasional wrong-word or jjoei-i-tjin substitutions may have occurred due to the inherent limitations of voice recognition software. Read the chart carefully and recognize, using context, where substitutions have occurred. Not available 11/21/2023 16:34:25 04/23/2024 [id number] Follow-up chroni c obstructive lung disease, essential [...] with voice recognition software. Occasional wrong-word or ueznq-v-drks substitutions may have occurred due to the inherent limitations of voice recognition software. Read the chart carefully and recognize, using context, where substitutions have occurred. Created: Maria Luisa Rendon M.D. 04.23.2024 02:35 PM [email or web address] Not available 04/23/2024 15:35:27 06/04/2024 [id number] complete blood c ount (CBC): about this test [email or web address] Not available 06/04/2024 15:45:30 06/11/2024 [id number] Gastrointestinal hemorrhage, hypertension, chronic obstructive lung disease [...] iron supplementation Keep Appointment: Sat 02:[address] [facility] Portions of record are template driven. When necessary additional context will be provided. Additionally some portions have been created with voice recognition software. Occasional wrong-word or fluqk-z-bqed substitutions may have occurred due to the inherent limitations of voice recognition software. Read the chart carefully and recognize, using context, where substitutions may have occurred. Created: Maria Luisa Rendon M.D. 06.11.2024 02:48 PM [email or web address] Not available 06/11/2024 15:48:23 08/26/2024 [id number] Follow-up obstructive lung disease, essential hypertension, hyperlipidemia, [...] with voice recognition software. Occasional wrong-word or wtjsu-n-jtwg substitutions may have occurred due to the inherent limitations of voice recognition software. Read the chart carefully and recognize, using context, where substitutions may have occurred. Created: Maria Luisa Rendon M.D. 08.26.2024 02:44 PM Not available 08/26/2024 15:44:43 Reason for Referral None Reported. Results Created Date Observation Date Name Description Value Unit Range Abnormal Flag Note LastModifiedBy Organization Detail LastModifiedTime 01/16/2001/17/2024 LIPID PANEL , STAND ERICA cholesterol, total 137 mg/dL <200 normal Not Available [employer] [facility] [address] [place], [address], 01/17/2024 03:11:49 01/16/2001/17/2024 LIPID PANEL , STAND ERICA HDL cholesterol 57 mg/dL > or = 50 normal Not Available [employer] [facility] [address] [place], [address], 01/17/2024 03:11:49 01/16/2001/17/2024 LIPID PANEL , STAND ERICA triglyceride s 115 mg/dL <150 normal Not Available [facility] [address] [place], [address], 01/17/2024 03:11:49 01/16/20 24 01/17/2024 LIPID PANEL , STAND ERICA LDL-choleste rol [...] is a valid ated novel metho d jostin posadas accur acy than the Fried olga equat ion in the estim ation of LDL-C . Dee Dee bush SS et al. ELENA. 2013; 310(1 9): 2061- 2068 (http ://ed ati on.[employer]. com/f aq/FA Q164) Not Available [facility] [address], [place], [address], 01/17/2024 03:11:49 01/16/20 24 01/17/2024 LIPID PANEL , STAND ERICA chol/HDLC ratio 2.4 (calc ) <5.0 normal Not Available [facility] [address] [place], [address], 01/17/2024 03:11:49 01/16/20 24 01/17/2024 LIPID PANEL , STAND ERICA non HDL cholesterol 80 mg/dL _(fernie c) <130 normal For patie nts with diabe demetrius plus 1 major ASCVD risk facto r, treat ing to a non-H DL-C goal of <100 mg/dL (LDL- C of <70 mg/dL ) is consi dered a thera pechina c optio n. Not Available [facility] [address] [place], [address], 01/17/2024 03:11:49 01/16/20 24 01/17/2024 COMPR EHENS YANNA METAB OLIC PANEL , PLASM A glucose 172 mg/dL 65-99 high Fasti ng refer ence inter dk For someo ne witho ut known diabe demetrius, a gluco se value >125 mg/dL indic ates that they may have diabe demetrius and this shoul d be confi rmed with a follo w-up test. Not Available [address], [address], 01/17/2024 03:11:50 01/16/20 24 01/17/2024 COMPR EHENS YANNA METAB OLIC PANEL , PLASM A urea nitrogen (BUN) 13 mg/dL 7-25 normal Not Available [address], [address], 01/17/2024 03:11:50 01/16/20 24 01/17/2024 COMPR EHENS YANNA METAB OLIC PANEL , PLASM A creatinine 0.79 mg/dL 0.60-0 .95 normal Not Available [address], [address], 01/17/2024 03:11:50 01/16/20 24 01/17/2024 COMPR EHENS YANNA METAB OLIC PANEL , PLASM A eGFR 75 mL/mi n/1.7 3m2 > or = 60 normal Not Available [address], [address], 01/17/2024 03:11:50 01/16/20 24 01/17/2024 COMPR EHENS YANNA METAB OLIC PANEL , PLASM A BUN/creatini ne ratio SEE NOTE: (calc ) 6-22 Not Repor lynne: BUN and Creat inine are withi n refer ence range . Not Available [address], [address], 01/17/2024 03:11:50 01/16/20 24 01/17/2024 COMPR EHENS YANNA METAB OLIC PANEL , PLASM A sodium 136 mmol/ L 135-14 6 normal Not Available [address], [address], 01/17/2024 03:11:50 01/16/20 24 01/17/2024 COMPR EHENS YANNA METAB OLIC PANEL , PLASM A potassium 3.8 mmol/ L 3.4-4. 8 normal Not Available [address], [address], 01/17/2024 03:11:50 01/16/20 24 01/17/2024 COMPR EHENS YANNA METAB OLIC PANEL , PLASM A chloride 101 mmol/ L 98-110 normal Not Available [address], [address], 01/17/2024 03:11:50 01/16/20 24 01/17/2024 COMPR EHENS YANNA METAB OLIC PANEL , PLASM A carbon dioxide 25 mmol/ L 20-32 normal Not Available [address], [address], 01/17/2024 03:11:50 01/16/20 24 01/17/2024 COMPR EHENS YANNA METAB OLIC PANEL , PLASM A calcium 9.8 mg/dL 8.6-10 .4 normal Not Available [address], [address], 01/17/2024 03:11:50 01/16/20 24 01/17/2024 COMPR EHENS YANNA METAB OLIC PANEL , PLASM A protein, total 7.1 g/dL 6.4-8. 4 normal Not Available [address], [address], 01/17/2024 03:11:50 01/16/20 24 01/17/2024 COMPR EHENS YANNA METAB OLIC PANEL , PLASM A albumin 4.3 g/dL 3.6-5. 1 normal Not Available [address] [place], [address], 01/17/2024 03:11:50 01/16/20 24 01/17/2024 COMPR EHENS YANNA METAB OLIC PANEL , PLASM A globulin 2.8 g/dL_ (calc ) 2.2-4. 0 normal Not Available [address], [address], 01/17/2024 03:11:50 01/16/20 24 01/17/2024 COMPR EHENS YANNA METAB OLIC PANEL , PLASM A albumin/glob ulin ratio 1.5 (calc ) 0.9-2. 3 normal Not Available [address], [address], 01/17/2024 03:11:50 01/16/20 24 01/17/2024 COMPR EHENS YANNA METAB OLIC PANEL , PLASM A bilirubin, total 0.5 mg/dL 0.2-1. 2 normal Not Available [address], [address], 01/17/2024 03:11:50 01/16/20 24 01/17/2024 COMPR EHENS YANNA METAB OLIC PANEL , PLASM A alkaline phosphatase 75 U/L 37-153 normal Not Available [address], [address], 01/17/2024 03:11:50 01/16/20 24 01/17/2024 COMPR EHENS YANNA METAB OLIC PANEL , PLASM A AST 12 U/L 10-35 normal Not Available [address], [address], 01/17/2024 03:11:50 01/16/20 24 01/17/2024 COMPR EHENS YANNA METAB OLIC PANEL , PLASM A ALT 9 U/L 6-29 normal Not Available [address], [address], 01/17/2024 03:11:50 01/16/20 24 01/17/2024 HEMOG LOBIN [...] diabe demetrius for child margarita. Not Available [address] [place], [address], 01/17/2024 03:11:51 06/04/19 25 06/05/2024 LIPID PANEL , STAND ERICA cholesterol, total 113 mg/dL <200 normal Not Available [facility] [address] [place], [address], 06/05/2024 05:15:29 06/04/19 25 06/05/2024 LIPID PANEL , STAND ERICA HDL cholesterol 50 mg/dL > or = 50 normal Not Available [facility] [address] [place], [address], 06/05/2024 05:15:29 06/04/19 25 06/05/2024 LIPID PANEL , STAND ERICA triglyceride s 102 mg/dL <150 normal Not Available [facility] [address] [address] [place], [address], 06/05/2024 05:15:29 06/04/19 25 06/05/2024 LIPID PANEL [...] a valid ated novel metho d provi ding socorro r accur acy than the Fried olga equat ion in the estim ation of LDL-C . Dee Dee bush SS et al. ELENA. 2013; 310(1 9): 2061- 2068 (http ://ed ucati on.[employer]. com/f aq/FA Q164) Not Available [employer] [address] [address] [place], [address], 06/05/2024 05:15:29 06/04/1906/05/2024 LIPID PANEL , STAND ERICA chol/HDLC ratio 2.3 (calc ) <5.0 normal Not Available [facility] [address] [address] [place], [address], 06/05/2024 05:15:29 06/04/1906/05/2024 LIPID PANEL , STAND ERICA non HDL cholesterol 63 mg/dL _(fernie c) <130 normal For patie nts with diabe demetrius plus 1 major ASCVD risk facto r, treat ing to a non-H DL-C goal of <100 mg/dL (LDL- C of <70 mg/dL ) is consi dered a thera peuti c optio n. Not Available [facility] [address] [address] [place], [address], 06/05/2024 05:15:29 06/04/1906/05/2024 COMPR EHENS YANNA METAB OLIC PANEL , PLASM A glucose 165 mg/dL 65-139 high Non-f astin g refer ence inter dk Not Available [facility] [address] [address] [place], [address], 06/05/2024 05:15:31 06/04/19 25 06/05/2024 COMPR EHENS YANNA METAB OLIC PANEL , PLASM A urea nitrogen (BUN) 14 mg/dL 7-25 normal Not Available [address], [address], 06/05/2024 05:15:31 06/04/19 25 06/05/2024 COMPR EHENS YANNA METAB OLIC PANEL , PLASM A creatinine 0.67 mg/dL 0.60-0 .95 normal Not Available [address], [address], 06/05/2024 05:15:31 06/04/19 25 06/05/2024 COMPR EHENS YANNA METAB OLIC PANEL , PLASM A eGFR 87 mL/mi n/1.7 3m2 > or = 60 normal Not Available [address], [address], 06/05/2024 05:15:31 06/04/19 25 06/05/2024 COMPR EHENS YANNA METAB OLIC PANEL , PLASM A BUN/creatini ne ratio SEE NOTE: (calc ) 6-22 Not Repor lynne: BUN and Creat inine are withi n refer ence range . Not Available [address], [address], 06/05/2024 05:15:31 06/04/19 25 06/05/2024 COMPR EHENS YANNA METAB OLIC PANEL , PLASM A sodium 138 mmol/ L 135-14 6 normal Not Available [address], [address], 06/05/2024 05:15:31 06/04/19 25 06/05/2024 COMPR EHENS YANNA METAB OLIC PANEL , PLASM A potassium 3.9 mmol/ L 3.4-4. 8 normal Not Available [address], [address], 06/05/2024 05:15:31 06/04/19 25 06/05/2024 COMPR EHENS YANNA METAB OLIC PANEL , PLASM A chloride 104 mmol/ L 98-110 normal Not Available [address], [address], 06/05/2024 05:15:31 06/04/19 25 06/05/2024 COMPR EHENS YANNA METAB OLIC PANEL , PLASM A carbon dioxide 27 mmol/ L 20-32 normal Not Available [address], [address], 06/05/2024 05:15:31 06/04/1906/05/2024 COMPR EHENS YANNA METAB OLIC PANEL , PLASM A calcium 9.8 mg/dL 8.6-10 .4 normal Not Available [address], [address], 06/05/2024 05:15:31 06/04/1906/05/2024 COMPR EHENS YANNA METAB OLIC PANEL , PLASM A protein, total 6.5 g/dL 6.4-8. 4 normal Not Available [address], [address], 06/05/2024 05:15:31 06/04/19 25 06/05/2024 COMPR EHENS YANNA METAB OLIC PANEL , PLASM A albumin 4.1 g/dL 3.6-5. 1 normal Not Available [address], [address], 06/05/2024 05:15:31 06/04/19 25 06/05/2024 COMPR EHENS YANNA METAB OLIC PANEL , PLASM A globulin 2.4 g/dL_ (calc ) 2.2-4. 0 normal Not Available [address], [address], 06/05/2024 05:15:31 06/04/19 25 06/05/2024 COMPR EHENS YANNA METAB OLIC PANEL , PLASM A albumin/glob ulin ratio 1.7 (calc ) 0.9-2. 3 normal Not Available [address], [address], 06/05/2024 05:15:31 06/04/19 25 06/05/2024 COMPR EHENS YANNA METAB OLIC PANEL , PLASM A bilirubin, total 0.3 mg/dL 0.2-1. 2 normal Not Available [address], [address], 06/05/2024 05:15:31 06/04/19 25 06/05/2024 COMPR EHENS YANNA METAB OLIC PANEL , PLASM A alkaline phosphatase 75 U/L 37-153 normal Not Available [address], [address], 06/05/2024 05:15:31 06/04/19 25 06/05/2024 COMPR EHENS YANNA METAB OLIC PANEL , PLASM A AST 18 U/L 10-35 normal Not Available [address], [address], 06/05/2024 05:15:31 06/04/19 25 06/05/2024 COMPR EHENS YANNA METAB OLIC PANEL , PLASM A ALT 17 U/L 6-29 normal Not Available [address], [address], 06/05/2024 05:15:31 06/04/19 25 06/05/2024 CBC (INCL UDES DIFF/ PLT) white blood cell count 5.3 thous and/u L 3.8-10 .8 normal Not Available [address], [address], 06/05/2024 05:15:32 06/04/19 25 06/05/2024 CBC (INCL UDES DIFF/ PLT) red blood cell count 3.39 erasmo on/uL 3.80-5 .10 low Not Available [address], [address], 06/05/2024 05:15:32 06/04/1906/05/2024 CBC (INCL UDES DIFF/ PLT) hemoglobin 7.6 g/dL 11.7-1 5.5 low Not Available [address], [address], 06/05/2024 05:15:32 06/04/1906/05/2024 CBC (INCL UDES DIFF/ PLT) hematocrit 26.7 % 35.0-4 5.0 low Not Available [address], [address], 06/05/2024 05:15:32 06/04/1906/05/2024 CBC (INCL UDES DIFF/ PLT) MCV 78.8 fL 80.0-1 00.0 low Not Available [address], [address], 06/05/2024 05:15:32 06/04/1906/05/2024 CBC (INCL UDES DIFF/ PLT) MCH 22.4 pg 27.0-3 3.0 low Not Available [address], [address], 06/05/2024 05:15:32 06/04/1906/05/2024 CBC (INCL UDES DIFF/ [...] fernie condi tion. Not Available [facility] [address] [address] [address], [place], [address], 06/05/2024 05:15:32 06/04/1906/05/2024 CBC (INCL UDES DIFF/ PLT) RDW 19.8 % 11.0-1 5.0 high Not Available [address], [address], 06/05/2024 05:15:32 06/04/1906/05/2024 CBC (INCL UDES DIFF/ PLT) platelet count 148 thous and/u L 140-40 0 normal Not Available [facility] [address], [address], 06/05/2024 05:15:32 06/04/1906/05/2024 CBC (INCL UDES DIFF/ PLT) MPV fL 7.5-12 .5 Due to plate let or RBC varia bilit y in size or shape the resul t canno t be repor lynne accur ately . Not Available [address], [address], 06/05/2024 05:15:32 06/04/1906/05/2024 CBC (INCL UDES DIFF/ PLT) absolute neutrophils 3615 cells /uL 1500-7 800 normal Not Available [address], [address], 06/05/2024 05:15:32 06/04/1906/05/2024 CBC (INCL UDES DIFF/ PLT) absolute lymphocytes 912 cells /uL 850-39 00 normal Not Available [facility] [address], [address], 06/05/2024 05:15:32 06/04/1906/05/2024 CBC (INCL UDES DIFF/ PLT) absolute monocytes 684 cells /uL 200-95 0 normal Not Available [facility] [address], [address], 06/05/2024 05:15:32 06/04/19 25 06/05/2024 CBC (INCL UDES DIFF/ PLT) absolute eosinophils 58 cells /uL 15-500 normal Not Available [facility] [address], [address], 06/05/2024 05:15:32 06/04/19 25 06/05/2024 CBC (INCL UDES DIFF/ PLT) absolute basophils 32 cells /uL 0-200 normal Not Available [facility] [address], [address], 06/05/2024 05:15:32 06/04/1906/05/2024 CBC (INCL UDES DIFF/ PLT) neutrophils 68.2 % normal Not Available [facility] [address], [address], 06/05/2024 05:15:32 06/04/19 25 06/05/2024 CBC (INCL UDES DIFF/ PLT) lymphocytes 17.2 % normal Not Available [facility] [address], [address], 06/05/2024 05:15:32 06/04/19 25 06/05/2024 CBC (INCL UDES DIFF/ PLT) monocytes 12.9 % normal Not Available [facility] [address], [address], 06/05/2024 05:15:32 06/04/1906/05/2024 CBC (INCL UDES DIFF/ PLT) eosinophils 1.1 % normal Not Available [facility] [address], [address], 06/05/2024 05:15:32 06/04/19 25 06/05/2024 CBC (INCL UDES DIFF/ PLT) basophils 0.6 % normal Not Available [facility] [address], [address], 06/05/2024 05:15:32 06/04/19 25 06/05/2024 CBC (INCL UDES DIFF/ PLT) comment(s) Revie w of perip heral smear confi burt autom ated resul ts. Revie w of the perip heral smear revea ls adequ ate numbe rs of plate lets. Not Available [facility] [address] [address] [place], [address], 06/05/2024 05:15:32 06/04/19 25 06/05/2024 T4, FREE T4, free 0.9 NG/dL 0.8-1. 8 normal Not Available [facility] [address] [address] [place], [address], 06/05/2024 05:15:33 06/04/19 25 06/05/2024 TSH TSH 2.36 mIU/L 0.40-4 .50 normal Not Available [facility] [address] [address] [place], [address], 06/05/2024 05:15:34 06/04/19 25 06/05/2024 HEMOG LOBIN [...] diabe demetrius for child margarita. Not Available [facility] [address] [address] [place], [address], 06/05/2024 05:15:35 06/12/19 25 06/12/2024 CBC (INCL UDES DIFF/ PLT) white blood cell count 5.4 thous and/u L 3.8-10 .8 normal Not Available [address], [address], 06/12/2024 03:15:17 06/12/19 25 06/12/2024 CBC (INCL UDES DIFF/ PLT) red blood cell count 3.92 erasmo on/uL 3.80-5 .10 normal Not Available [address], [address], 06/12/2024 03:15:17 06/12/19 25 06/12/2024 CBC (INCL UDES DIFF/ PLT) hemoglobin 9.2 g/dL 11.7-1 5.5 low Not Available [address], [address], 06/12/2024 03:15:17 06/12/19 25 06/12/2024 CBC (INCL UDES DIFF/ PLT) hematocrit 31.8 % 35.0-4 5.0 low Not Available [address], [address], 06/12/2024 03:15:17 06/12/19 25 06/12/2024 CBC (INCL UDES DIFF/ PLT) MCV 81.1 fL 80.0-1 00.0 normal Not Available [address], [address], 06/12/2024 03:15:17 06/12/19 25 06/12/2024 CBC (INCL UDES DIFF/ PLT) MCH 23.5 pg 27.0-3 3.0 low Not Available [address], [address], 06/12/2024 03:15:17 06/12/19 25 06/12/2024 CBC (INCL [...] nt's clini fernie condi tion. Not Available [address], [address], 06/12/2024 03:15:17 06/12/1906/12/2024 CBC (INCL UDES DIFF/ PLT) RDW 19.5 % 11.0-1 5.0 high Not Available [address], [address], 06/12/2024 03:15:17 06/12/19 25 06/12/2024 CBC (INCL UDES DIFF/ PLT) platelet count 150 thous and/u L 140-40 0 normal Not Available [facility] [address], [address], 06/12/2024 03:15:17 06/12/19 25 06/12/2024 CBC (INCL UDES DIFF/ PLT) MPV 11.9 fL 7.5-12 .5 normal Not Available [facility] [address], [address], 06/12/2024 03:15:17 06/12/1906/12/2024 CBC (INCL UDES DIFF/ PLT) absolute neutrophils 3515 cells /uL 1500-7 800 normal Not Available [facility] [address], [address], 06/12/2024 03:15:17 06/12/19 25 06/12/2024 CBC (INCL UDES DIFF/ PLT) absolute lymphocytes 967 cells /uL 850-39 00 normal Not Available [facility] [place] [address] [address], [place], [address], 06/12/2024 03:15:17 06/12/19 25 06/12/2024 CBC (INCL UDES DIFF/ PLT) absolute monocytes 594 cells /uL 200-95 0 normal Not Available [address], [address], 06/12/2024 03:15:17 06/12/19 25 06/12/2024 CBC (INCL UDES DIFF/ PLT) absolute eosinophils 302 cells /uL 15-500 normal Not Available [address], [address], 06/12/2024 03:15:17 06/12/19 25 06/12/2024 CBC (INCL UDES DIFF/ PLT) absolute basophils 22 cells /uL 0-200 normal Not Available [address], [address], 06/12/2024 03:15:17 06/12/19 25 06/12/2024 CBC (INCL UDES DIFF/ PLT) neutrophils 65.1 % normal Not Available [address], [address], 06/12/2024 03:15:17 06/12/19 25 06/12/2024 CBC (INCL UDES DIFF/ PLT) lymphocytes 17.9 % normal Not Available [facility] [address], [address], 06/12/2024 03:15:17 06/12/19 25 06/12/2024 CBC (INCL UDES DIFF/ PLT) monocytes 11.0 % normal Not Available [address], [address], 06/12/2024 03:15:17 06/12/19 25 06/12/2024 CBC (INCL UDES DIFF/ PLT) eosinophils 5.6 % normal Not Available [facility] [id number] [address], [place], [address], 06/12/2024 03:15:17 06/12/1906/12/2024 CBC (INCL UDES DIFF/ PLT) basophils 0.4 % normal Not Available [address], [address], 06/12/2024 03:15:17 06/24/1906/24/2024 CBC (INCL UDES DIFF/ PLT) white blood cell count 9.7 thous and/u L 3.8-10 .8 normal Not Available [facility] [address], [address], 06/24/2024 06:57:04 06/24/1906/24/2024 CBC (INCL UDES DIFF/ PLT) red blood cell count 3.97 erasmo on/uL 3.80-5 .10 normal Not Available [address], [address], 06/24/2024 06:57:04 06/24/1906/24/2024 CBC (INCL UDES DIFF/ PLT) hemoglobin 9.3 g/dL 11.7-1 5.5 low Not Available [address], [address], 06/24/2024 06:57:04 06/24/1906/24/2024 CBC (INCL UDES DIFF/ PLT) hematocrit 31.8 % 35.0-4 5.0 low Not Available [address], [address], 06/24/2024 06:57:04 06/24/1906/24/2024 CBC (INCL UDES DIFF/ PLT) MCV 80.1 fL 80.0-1 00.0 normal Not Available [facility] [address], [address], 06/24/2024 06:57:04 06/24/1906/24/2024 CBC (INCL UDES DIFF/ PLT) MCH 23.4 pg 27.0-3 3.0 low Not Available [address], [address], 06/24/2024 06:57:04 06/24/1906/24/2024 CBC (INCL UDES DIFF/ PLT) MCHC 29.2 g/dL 32.0-3 6.0 low For adult s, a sligh t decre ase in the calcu lated MCHC value (in the range of 30 to 32 g/dL) is most likel y not clini ziggy duartei nhi t; tony er, it shoul d be inter prete d with [facility] with other red cell joy eters and the patie nt's clini fernie condi tion. Not Available [address], [address], 06/24/2024 06:57:04 06/24/1906/24/2024 CBC (INCL UDES DIFF/ PLT) RDW 19.3 % 11.0-1 5.0 high Not Available [address], [address], 06/24/2024 06:57:04 06/24/1906/24/2024 CBC (INCL UDES DIFF/ PLT) platelet count 163 thous and/u L 140-40 0 normal Not Available [address], [address], 06/24/2024 06:57:04 06/24/1906/24/2024 CBC (INCL UDES DIFF/ PLT) MPV 10.6 fL 7.5-12 .5 normal Not Available [address], [address], 06/24/2024 06:57:04 06/24/19 25 06/24/2024 CBC (INCL UDES DIFF/ PLT) absolute neutrophils 8255 cells /uL 1500-7 800 high Not Available [address], [address], 06/24/2024 06:57:04 06/24/1906/24/2024 CBC (INCL UDES DIFF/ PLT) absolute lymphocytes 766 cells /uL 850-39 00 low Not Available [address], [address], 06/24/2024 06:57:04 06/24/19 25 06/24/2024 CBC (INCL UDES DIFF/ PLT) absolute monocytes 631 cells /uL 200-95 0 normal Not Available [address], [address], 06/24/2024 06:57:04 06/24/1906/24/2024 CBC (INCL UDES DIFF/ PLT) absolute eosinophils 19 cells /uL 15-500 normal Not Available [address], [address], 06/24/2024 06:57:04 06/24/1906/24/2024 CBC (INCL UDES DIFF/ PLT) absolute basophils 29 cells /uL 0-200 normal Not Available [address], [address], 06/24/2024 06:57:04 06/24/19 25 06/24/2024 CBC (INCL UDES DIFF/ PLT) neutrophils 85.1 % normal Not Available [address], [address], 06/24/2024 06:57:04 06/24/19 25 06/24/2024 CBC (INCL UDES DIFF/ PLT) lymphocytes 7.9 % normal Not Available [facility] [address], [address], 06/24/2024 06:57:04 06/24/19 25 06/24/2024 CBC (INCL UDES DIFF/ PLT) monocytes 6.5 % normal Not Available [address] [address] [place], [address], 06/24/2024 06:57:04 06/24/19 25 06/24/2024 CBC (INCL UDES DIFF/ PLT) eosinophils 0.2 % normal Not Available [address] [address] [place], [address], 06/24/2024 06:57:04 06/24/19 25 06/24/2024 CBC (INCL UDES DIFF/ PLT) basophils 0.3 % normal Not Available [address] [address] [place], [address], 06/24/2024 06:57:04 04/27/19 25 04/27/2024 MAMMO , scree diane, digit al, bilat eral No observ ation record ed. [address] [facility], [place], [address], 04/27/2024 17:43:35 04/29/19 25 04/27/2024 bone densi ty No observ ation record ed. [address] [address], [place], [address], 04/29/2024 09:54:44 06/05/19 25 06/05/2024 XR, chest No observ ation record ed. [address] [address], [place], [address], 06/06/2024 08:33:45 07/02/19 25 06/30/2024 CT, chest + abdom en + pelvi s, w/o contr ast No observ ation record ed. [address] [address], [place], [address], 07/07/2024 13:58:46 07/14/19 capsu le endos copy (PROC ) No observ ation record ed. [email or web address] Not Available 2024 21:58:10 Result Notes None recorded. Problems Name Problem SNOMED Code Status Onset Date Resolution Date Notes Provider Name and Address Organization Details Recorded Time Renewal of prescripti on Active 2021 Not Available [facility] 3 12:45:37 Chronic obstructiv e pulmonary disease 14422640 Active 2020 Not Available [facility] 3 12:45:37 Senile osteoporos is 55536191 Active 2021 Not Available [facility] 3 12:45:37 Pure hyperchole sterolemia 112095470 Active 2020 Not Available [facility] 3 12:45:37 Low back pain 998445727 Active 2021 Not Available [facility] 3 12:45:37 Recurrent dislocatio n of shoulder region 91633904 Active Not Available [facility] 3 12:45:37 Enthesopat hy of hip region 38129187 Active Not Available [facility] 3 12:45:37 Vitamin D deficiency 15207546 Active 2021 Not Available [facility] 3 12:45:38 Disorder of rotator cuff 998188837 Active Not Available [facility] 3 12:45:38 History of polyp of colon 073044789 Active 2020 Not Available [facility] 3 12:45:38 Disorder of bursa of shoulder region 28576637 Active Not Available [facility] 3 12:45:38 Essential hypertensi on 41315571 Active 2020 Not Available [facility] 3 12:45:38 Pulmonary hypertensi on 45563987 Active 2021 Not Available [facility] 3 12:45:38 Chronic back pain 482573280 Active 2022 Violette Dawn CMA null, [place] [facility] 3 14:39:22 Obese class I 5581784298240 07 Active 2022 Maria Luisa Rendon MD [address] [facility], [address], [place], [address] , [place] [facility] 3 15:47:21 Depressive disorder 22458751 Active 2023 Violette Dawn CMA null, [place] [facility] 4 17:35:48 Trigger finger of right hand 7789913466879 9101 Active 2024 Fariba Valdez null, [place] [facility] 5 15:49:08 Abdominal pain 48643373 Active 2024 Maria Luisa Rendon MD [address], [address], [place], [address] , [place] [facility] 5 15:37:51 Gastrointe stinal hemorrhage 87115328 Active 2024 Maria Luisa Rendon MD [address], [address], [place], [address] , [place] [facility] 5 15:38:18 Anemia 233515995 Active 2024 Violette Dawn CMA null, [place] [facility] 5 14:17:58 Nausea and vomiting 53939183 Active 2024 Maria Luisa Rendon MD [address], [address], [place], [address] , [place] [facility] 5 11:49:31 Abnormal weight loss 742449604 Active 2024 Violette Dawn CMA null, [place] [facility] 5 15:05:53 Diverticul itis of colon 376200096 Active 2024 Maria Luisa Rendon MD [address], [address], [place], [address] , [place] [facility] 5 17:41:19 Type 2 diabetes mellitus 43899957 Active 2024 Maria Luisa Rendon MD [address], [address], [place], [address] , [place] [facility] 5 15:34:25 Diverticul itis 460119329 Active 2024 Maria Luisa Rendon MD [address], [address], [place], [address] , [employer] 15:35:38 Edema of lower extremity 243978692 Active 2024 Maria Luisa Rendon MD [address], [address], [place], [address] , [employer] 15:43:13 Problem Notes None recorded. Procedures Surgical History Date Name Laterality Status Provider Name and Address Organization Details Recorded Time 11/21/19 Medicare Wellness CPT Code, subsequent completed Candelaria Pino RN MA [employer] [facility] [employer] 11/21/2023 16:10:12 09/30/19 Most Recent Bone Density completed Not Available [facility] 06/06/2022 12:45:05 04/12/19 Date of Last Colonoscopy completed Not Available [facility] 06/06/2022 12:45:05 Imaging Results Imaging Date Name Status LastModified by Organiz ation Details LastModified Time 04/27/2024 MAMMO, screening, digital, bilateral completed [address], [address], 04/27/2024 17:43:35 04/27/2024 bone density completed [address] [place] [address], [address], 04/29/2024 09:54:44 06/05/2024 XR, chest completed [address] [facility] [address] [place] [address], [address], 06/06/2024 08:33:45 06/30/2024 CT, chest + abdomen + pelvis, w/o contrast completed [address], [address], 07/07/2024 13:58:46 07/13/2024 capsule endoscopy (PROC) completed [email or web address] [email or web address] Information not available 07/13/2024 21:58:10 Procedure Notes None recorded. Medical Equipment None Reported. Allergies Allergen ID Allergen Name Allergen Category Reaction Reaction Severity Criticality Documentation Date Start Date Code Code System Note Provider Name and Address Organization Details Recorded Time 48096 Iodinated contrast media (substanc e) medicatio n Not available Not available Not available 06/06/2022 15984 2003 SNOMED Not Available [facility] 3 12:47:59 Medications Name Sig Start Date [...] 2024 active Not Available Not Available Not [place] ranitidine 150 mg tablet 10/28 completed Not [...] active Not Available Not Available Not [facility] furosemide 20 mg tablet TAKE 1 TABLET [...] active Not Available Not Available Not [facility] kasey THSC Hydrocodon e/APAP 10/28 completed Not Available Not Available Not Available Fish Oil 07/04 completed [address]331 mg once a day Not Available Not [...] Available No t Available [employer] [place] [address] [place] use as directed for checking blood sugars active Not Available Not Available No t Available Vitals Date Recorded Body height Body mass index (BMI) Body weight Heart rate Body temperature Oxygen saturation Oxygen saturation in Arterial blood by Pulse oximetry Systolic blood pressure Diastolic blood pressure Provider Name and Address Organization Details Last Updated DateTime 4 149.86 cm 32.1 kg/m2 38766.1 9 g 102 /min 97.3 [degF] 97 % 97 % 132 mm[Hg] 70 mm[Hg] EV [place] [employer] 4 16:00:50 Date Recorded Body height Body mass index (BMI) Body weight Heart rate Body temperature Oxygen saturation Oxygen saturation in Arterial blood by Pulse oximetry Systolic blood pressure Diastolic blood pressure Provider Name and Address Organization Details Last Updated DateTime 5 149.86 cm 30.3 kg/m2 78089.8 6 g 69 /min 97 [degF] 96 % 96 % 118 mm[Hg] 60 mm[Hg] Susie Nicole [employer] 5 15:23:00 Date Recorded Body height Body mass index (BMI) Body weight Heart rate Body temperature Oxygen saturation Oxygen saturation in Arterial blood by Pulse oximetry Systolic blood pressure Diastolic blood pressure Provider Name and Address Organization Details Last Updated DateTime 5 149.86 cm 29.7 kg/m2 16563.0 8 g 77 /min 98.2 [degF] 95 % 95 % 122 mm[Hg] 68 mm[Hg] Susie [employer] 5 15:15:25 Date Recorded Body height Body mass index (BMI) Body weight Heart rate Body temperature Oxygen saturation Oxygen saturation in Arterial blood by Pulse oximetry Systolic blood pressure Diastolic blood pressure Provider Name and Address Organization Details Last Updated DateTime 5 149.86 cm 29.1 kg/m2 48018.3 g 97 /min 97 [degF] 94 % 94 % 142 mm[Hg] 70 mm[Hg] [employer] 5 15:22:16 Date Recorded Body height Body mass index (BMI) Body weight Heart rate Body temperature Oxygen saturation Oxygen saturation in Arterial blood by Pulse oximetry Systolic blood pressure Diastolic blood pressure Provider Name and Address Organization Details Last Updated DateTime 5 149.86 cm 28.6 kg/m2 11178.3 2 g 60 /min 97 [degF] 96 % 96 % 122 mm[Hg] 58 mm[Hg] [employer] 5 15:25:37 Social History Question Answer Notes LastModified by Organization Details LastModified Time Tobacco Smoking Status Former Smoker Not Available [facility] 06/06/2022 12:45:02 Do You Have An Advance Directive? Yes MIGRATION.0301 [id number] Information not available 06/06/2022 Are You Blind Or Do You Have Difficulty Seeing? No MIGRATION.030 653498 Information not available 06/06/2022 Are You Deaf Or Do You Have Serious Difficulty Hearing? No MIGRATION.0301 188402 Information not available 06/06/2022 What Type Of Diet Are You Following? REGULAR MIGRATION.0301 799088 Information not available 06/06/2022 Have There Been Any Changes To Your Family Or Social Situation? Yes Recently Lost Her Spouse [email or web address] Information not available 11/21/2023 What Is The Fluoride Status Of Your Home? Fluoridated MIGRATION.0301 728002 Information not available 06/06/2022 When Did You Quit Smoking? 16+yearssincelastc igarette MIGRATION.0301 406380 Information not available 06/06/2022 Are There Any Guns Present In Your Home? No MIGRATION.0301 367973 Information not available 06/06/2022 Do You Use Insect Repellent Routinely? No [email or web address] Information not available 11/21/2023 Where Do You Live? [place]House MIGRATION.0301 374122 Information not available 06/06/2022 Are You Able To Care For Yourself? Yes [email or web address] Information not available 11/21/2023 Are You Blind Or Do Yo Have Difficulty Seeing? No [email or web address] Information not available 11/21/2023 Are You Deaf Or Do You Have Serious Difficulty Hearing? No [email or web address] Information not available 11/21/2023 Live Alone Of With Others? Alone [email or web address] Information not available 11/21/2023 Are You Following A Low Salt Diet? No MIGRATION.0301 247863 Information not available 06/06/2022 Do You Have A Medical Power Of Slubber Runner? Yes MIGRATION.0301 690532 Information not available 06/06/2022 What Was The Date Of Your Most Recent Tobacco Screening? 11/21/2023 [email or web address] Information not available 11/21/2023 Do You Have Any Pets? No [email or web address] Information not available 11/21/2023 What Is Your Relationship Status? [email or web address] Information not available 11/21/2023 Do You Use Your Seat Belt Or Car Seat Routinely? Yes MIGRATION.0301 771744 Information not available 06/06/2022 Do You Have Smoke And Carbon Monoxide Detectors In Your Home? Yes MIGRATION.0301 178636 Information not available 06/06/2022 At What Age Did You Start Smoking Tobacco? 8 MIGRATION.0301 571542 Information not available 06/06/2022 Do You Use Sunscreen Routinely? No [email or web address] Information not available 11/21/2023 Has Tobacco Cessation Counseling Been Provided? No MIGRATION.0301 127978 Information not available 06/06/2022 Have You Recently Traveled Abroad? No [email or web address] Information not available 11/21/2023 Do You Have Difficulty Walking Or Climbing Stairs? Yes MIGRATION.0301 877653 Information not available 06/06/2022 Do You Have Any Dietary Restrictions? Yes MIGRATION.0301 733975 Information not available 06/06/2022 Sex: Unknown Functional Status Question Answer Note LastModified by Organizat ion Details LastModified Time Do you use any illicit or recreational drugs? No MIGRATION.928789 5150 Information not available 06/06/2022 What is your level of alcohol consumption? None MIGRATION.876089 7416 Information not available 06/06/2022 Do you have transportation difficulties? No MIGRATION.746389 2524 Information not available 06/06/2022 Are you able to walk? YESASSIST uses a cane MIGRATION.989422 3121 Information not available 06/06/2022 Do you have difficulty doing errands alone? No [email or web address] Information not available 11/21/2023 Are you able to care for yourself? Yes MIGRATION.523456 6289 Information not available 06/06/2022 Do you have difficulty dressing or bathing? No MIGRATION.013156 6739 Information not available 06/06/2022 What is your exercise level? None MIGRATION.712877 6284 Information not available 06/06/2022 Mental Status Question Answer Note LastModified by Organizat ion Details LastModified Time Do you have difficulty concentrating, remembering or making decisions? No MIGRATION.[id number] 6 Information not available 06/06/2022 Family History [...] HAVE YOU BEEN HOSPITALIZED OR SEEN IN [facility] IN THE PAST YEAR ? N ATHEROSCLEROSIS [...] PF 3 completed Maria Luisa Rendon MD [address] [place] [address] [address], [place], [address], [facility] [employer] [facility] 03/29/2023 16:10:02 SARS-COV-2 (COVID-19) vaccine, UNSPECIFIED 1 completed Not Available [facility] 06/06/2022 12:47:55 SARS-COV-2 (COVID-19) vaccine, UNSPECIFIED 1 completed Not Available [facility] 06/06/2022 12:47:56 Pneumococcal conjugate PCV 13 0 completed Not Available [facility] 06/06/2022 12:47:56 pneumococcal polysaccharide PPV23 7 completed Not Available [facility] 06/06/2022 12:47:56 Influenza, high-dose, quadrivalent, PF 1 completed Not Available [facility] 06/06/2022 12:47:56 Past Encounters Encounter ID Performer Location Encounter Start Date Encounter Closed Date Diagnosis/Indication Diagnosis SNOMED-CT Code Diagnosis ICD10 Code Diagnosis Note [id number] Maria Luisa Rendon MD [facility] Internal Med [place] [address] [place] [address] y , [place] [address] 06/21/2020 00:00:00 06/21/2020 15:56:12 [id number] Maria Luisa Rendon MD [facility] Internal Med [place] [address] [place] [address] y , [place] [address] 10/28/2020 00:00:00 10/28/2020 16:59:34 [id number] Maria Luisa Rendon MD [facility] Internal Med [place] [address] [place] [address] y , [place] [address] 02/17/2021 00:00:00 02/17/2021 16:20:26 [id number] Maria Luisa Rendon MD [facility] Internal Med [place] [address] [place] [address] y , [place] [address] 07/04/2021 00:00:00 07/04/2021 16:03:08 [id number] Maria Luisa Rendon MD [facility] Internal Med [place] [address] [place] [address] [place] [address] 12/01/2021 00:00:00 12/01/2021 15:45:44 [id number] Maria Luisa Rendon MD [facility] Internal Med [place] [address] [place] [address] [place] [address] 04/06/2022 00:00:00 04/06/2022 15:32:43 [id number] Maria Luisa Rendon MD [facility] Internal Med [place] [address] [place] [address] [place] [address] 08/03/2022 15:12:52 08/03/2022 16:09:36 Chronic obstructive pulmonary disease 53926094 J44.9 Essential hypertension 56069524 I10 Pure hypercholesterolemia 559668148 E78.00 Type 2 kim betes mellitus without complication 536949917 E11.9 [id number] Maria Luisa Rendon MD [facility] Internal Med [place] [address] [place] [address] [place] [address] 11/30/2022 15:16:19 11/30/2022 16:02:36 Essential hypertension 60188526 I10 Pure hypercholesterolemia 909484994 E78.00 Type 2 kim betes mellitus without complication 028457222 E11.9 Chronic ob structive pulmonary disease 09248874 J44.9 Obese class I 3321277157 50687 E66.9 [id number] Maria Luisa Rendon MD [facility] Internal [place] [address] [place] [address] [place] [address] 03/29/2023 15:37:04 03/29/2023 16:18:08 Administration of influenza vaccine 80293205 Z23 Chronic ob structive pulmonary disease 51457354 J44.9 Pure hypercholesterolemia 032322351 E78.00 Type 2 kim betes mellitus without complication 937969874 E11.9 Essential hypertension 57601201 I10 [id number] Maria Luisa Rendon MD [facility] [address] [place] [address] [place] [address] 07/26/2023 15:53:47 07/26/2023 16:24:13 Essential hypertension 75259205 I10 Pure hypercholesterolemia 629422613 E78.00 Chronic ob structive pulmonary disease 92012002 J44.9 Chronic back pain 844987 002 M54.9 Type 2 kim betes mellitus without complication 472051356 E11.9 [id number] Maria Luisa Rendon MD [facility] Internal Med [place] [address] [place] [address] [place] [address] 11/21/2023 15:53:50 11/21/2023 16:42:52 Adult health examination 077533895 Z00.00 Screening for disorder 189567372 Z13.9 Chronic ob structive pulmonary disease 35646904 J44.9 Pure hypercholesterolemia 108484606 E78.00 Essential hypertension 58334665 I10 Type 2 kim betes mellitus without complication 773533578 E11.9 Obese class I 0576473097 75810 E66.9 [id number] Maria Luisa Rendon MD [facility] Primary Care [facility] [address] [facility] [address] [place] [address] 04/23/2024 15:09:25 04/23/2024 15:51:38 Chronic obstructive pulmonary disease 91759921 J44.9 Essential hypertension 97303613 I10 Pure hypercholesterolemia 402989820 E78.00 Type 2 kim betes mellitus without complication 065624723 E11.9 [id number] Maria Luisa Rendon MD [facility] Primary Care [place] [address] [place] [address] 06/04/2024 14:52:23 06/04/2024 15:57:49 Abdominal pain 44594572 R10.9 Chronic ob structive pulmonary disease 65757166 J44.9 Essential hypertension 38119307 I10 Pure hypercholesterolemia 880174923 E78.00 Type 2 kim betes mellitus without complication 937406714 E11.9 [id number] Maria Luisa Rendon MD [facility] Primary Care [place] [address] [facility] [address] 06/11/2024 14:51:04 06/11/2024 15:56:18 Gastrointestinal hemorrhage 98419704 K92.2 Essential hypertension 88323179 I10 Chronic ob structive pulmonary disease 37908483 J44.9 Type 2 kim betes mellitus 60275946 E11.29 [id number] Maria Luisa Rendon MD [facility] Internal Med [address] [facility], [address] [place] [address] 08/26/2024 15:09:16 08/26/2024 15:51:53 Chronic obstructive pulmonary disease 51422442 J44.9 Essential hypertension 42107852 I10 Pure hypercholesterolemia 155875337 E78.00 Type 2 kim betes mellitus 37054617 E11.9 Diverticul itis of colon 911958403 K57.32 Edema of l ower extremity 409207594 R60.0 Health Concerns Section Related Observation LastModified by Organization Detai ls LastModified Time None Recorded Concern Status LastModified by Organization Details LastModified Time None Recorded Advance Directives Directive Y: Payers Encounter Date Sequence Insurance Name Policy Number Policy Anderson Covered Member ID Anderson Member ID Guarantor Name 11/21/2023 1 [facility] - [employer] - MEDICARE COMPLETE PLAN 2 (MEDICARE REPLACEMENT HMO) [id number] Tyra Justice [id number] Tyra Justice 04/23/2024 1 [facility] - [employer] - [employer] - MEDICARE COMPLETE PLAN 2 (MEDICARE REPLACEMENT HMO) [id number] Tyra Justice [id number] Tyra Justice 06/04/2024 1 [facility] - [employer] - [employer] - MEDICARE COMPLETE PLAN 2 (MEDICARE REPLACEMENT HMO) [id number] Tyra Justice [id number] Tyra Justice 06/11/2024 1 [facility] - [employer] - [employer] - MEDICARE COMPLETE PLAN 2 (MEDICARE REPLACEMENT HMO) [id number] Tyra Justice [id number] Tyra Justice 08/26/2024 1 [facility] A[employer] - SECURE [employer]IZ[employer] - MEDICARE COMPLETE PLAN 2 (MEDICARE REPLACEMENT HMO) [id number] Tyra Justice [id number] Tyra Justice Notes Date Note Type Note Provider Name and Address Organization Details Recorded Time 11/21/19 24 text/htm l Patient Name: Tyra JusticeDate Of Service: November ( 11.21.2023 ): 1940 [...] lesions. The last HAIC was done by drafter automotive design layout. Average blood sugars 125-150 mg%. Checking sugars [...] offered to be evaluated and instructed by radio intelligence operator on weight loss diet. Active Medication ListAmaryl [...] Adverse Drug Reactions ReviewedAvandia Swelling Vaccination and Kskvbcdzaokx6706-85 Tpexvhylh6034-06 Covid Ssoecy9534-44 Prevnar 13 Jo3263-47 Pneumovax Surgical Imvovli8430-45 Left Rotator Cuff Ihyewm0902-56 Sebacesou pidk9411-55 Xlznhxdnyt9857-25 Rt. Breast Pmzhnn2639-48 Qcsdiltvsh1614-51 Eqibjyssclnujwvl3084-20 Cjusnbeqgqoces9730-92 [facility] VJD8711-46 Mcjaepsafjsct2147-94 Lt. Hip Surgery Preventative Testing( ) 08/30/2023 [...] at 81 from [place] of lung, [facility], [place] and aneurysm.Three brothers. One living alcoholic(1) CAD(2), DM(1)Two sisters one has Ca of colon. One CAD Maria Luisa Rendon MD [address] [facility], [address], [place], [address], [facility] [employer] 11/21/2023 16:34:44 04/23/19 25 text/htm l Patient Name: Tyra Evans Of Service: April [...] Swelling Vaccination and Immunization( ) 2006- PNEUMOVAX(X) 2022- INFLUENZA( ) 2019- PREVNAR 13 GC(X) 2020-07 [facility] Surgical [id number] Left Rotator Cuff Shrfwf2795-01 Sebacesou uhlq8946-78 Mlqrxcrprk9523-14 Rt. Breast Ibcfhs4101-98 Lpplhsiyzx3617-54 Ajawrtdksrwfmxga2940-25 Agrcsduvznrtey5284-17 [facility] VDN2292-49 Ecjlivylekyxi0827-99 Lt. Hip Surgery Preventative Testing( ) 01/16/2024 [...] at 81 from CA of lung, ASHD, [place] and aneurysm.Three brothers. One living alcoholic(1) CAD(2), DM(1)Two sisters one has Ca of colon. One CAD Maria Luisa Rendon MD [address] [place] [address], [facility] [address], [place], [address], [facility] 04/23/2024 15:35:44 06/04/19 25 text/htm l Patient Name: Tyra JusticeCathi Of Service: May ( 06.04.2024 ): 1940 [...] ) 2006- PNEUMOVAX( ) 2023- INFLUENZA( ) 2019- PREVNAR 13 GC(X) 2020- COVID [facility] Surgical Wqrzydk7373-85 Left Rotator Cuff Rngoda4906-94 Sebacesou naqd3462-99 Jcwrnxvdsg6638-60 Rt. Breast Cuflks4054-75 Yuoloztuhq0092-20 Kiidznwzadltkkxg7487-73 Xhxanvvxzltkbq8072-84 [facility] MCX8084-85 Ufvybormgietm0787-21 Lt. Hip Surgery Preventative Testing( ) 04/27/2024 [...] at 81 from CA of lung, ASHD, [place] and aneurysm.Three brothers. One living alcoholic(1) CAD(2), DM(1)Two sisters one has Ca of colon. One CAD Maria Luisa Rendon MD [address] [facility], [facility] [address], [place], [address], [facility] [employer] 06/04/2024 15:45:35 06/12/19 25 text/htm l Patient Name: Tyra Evans Of Service: June ( 06.11.2024 ): 1940 [...] Systemic Symptoms:none Medication Reconciliation: from medication list. [id number]: Colonoscopy diverticuli noted in the left colon. [...] INFLUENZA( ) 2019-06 PREVNAR 13 GC(X) 2020-07 C[facility] Surgical Ipmcqvd3566-66 Left Rotator Cuff Ttxzct1610-83 Sebacesou diqz7229-16 Dvkjrcigmz5006-75 Rt. Breast Oqeuwk3261-19 Hnufjtbfxy9041-03 Ckswiqmewecwtlhy5909-54 Xikdtphaalxndt7112-97 [facility] PDO5194-92 Zouncxkkzohvz1587-59 Lt. Hip Surgery Preventative Testing( ) 06/11/2024 [...] at 81 from CA of lung, ASHD, [place] and aneurysm.Three brothers. One living alcoholic(1) CAD(2), DM(1)Two sisters one has Ca of colon. One CAD Maria Luisa Rendon MD [address] [facility], [facility] [address], [place], [address], [facility] 06/11/2024 15:48:40 08/27/19 25 text/htm l Patient Name: Tyra Blankhumberto Of Service: Saturday ( 08.26.2024 ): 1940 [...] Systemic Symptoms:none Medication Reconciliation: from medication list. [id number]: Colonoscopy diverticuli noted in the left colon. [...] PREVNAR 13 GC PREVNAR 20 Needed(X) 2020-07 COVID [facility] Surgical Ckzfwpu8064-20 Left Rotator Cuff Cobfsw7138-81 Sebacesou wwdv8737-46 Izpqmtoutw4369-13 Rt. Breast Rohtzj1545-67 Nvechwbcyi3605-97 Ekzskkdtlcybyzkg5437-12 Acjraqhgkoafzr8605-65 [facility] IWT6933-90 Beynxxaakqmvk8834-23 Lt. Hip Surgery Preventative TestingPreventative Testing Discussed [...] at 81 from CA of lung, ASHD, [place] and aneurysm.Three brothers. One living alcoholic(1) CAD(2), DM(1)Two sisters one has Ca of colon. One CAD Maria Luisa Rendon MD [address] [facility] [address], [place], [address], [place] [facility] [employer] 08/26/2024 15:53:59 OBGyn Episode No OBEpisode recorded.
--- OUTSIDE RECORDS SUMMARY | 2024-08-27 14:53 | XMS_ITS | Clinical Summary ---
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 Current use of [...] on file Legal Sex Female 12:27 AM SIDE SEAM TENDER Gender Identity Not on file Sexual Orientation Not on file Obstetrics History Last Filed Vital Signs Vital Sign Reading Time Taken Comments Blood Pressure 136/60 03/18/2024 2:12 PM SIDE SEAM TENDER Pulse 75 03/18/2024 2:12 PM SIDE SEAM TENDER Temperature - - Respiratory Rate - - Oxygen Saturation 97% 03/18/2024 2:12 PM SIDE SEAM TENDER Inhaled Oxygen Concentration - - Weight 68.9 kg (152 lb) 03/18/2024 2:12 PM SIDE SEAM TENDER Height 149.9 cm (4' 11 ) 03/18/2024 2:12 PM SIDE SEAM TENDER Body Mass Index 30.7 03/18/2024 2:12 PM SIDE SEAM TENDER Plan of Treatment Health Maintenance Due Date [...] 4 Lipid Panel 11/08/2016 11/09/2015 Influenza Vaccine (Season Ended) 2024 02/10/2019, 03/01/2017, 12/28/2015, Additional history exists Pneumococcal vaccine [...] Most Recently Relevant to Health Maintenance Insurance [facility] MED[facility] ADVANT[facility] MEDIC[facility] ADVANTAGE Care Teams Shorthand Reporter Relationship Specialty Start Date End Date Dain Rendon MD PCP - General 01/02/10
--- NOTE | 2024-08-27 15:14 | ED.GENADULT ---
HPI - General Adult General Chief complaint: Recheck/Abnormal Lab/Rx Stated complaint: fall-low BG Time Seen by Provider: 08/27/24 14:36 History of Present Illness HPI narrative: Pt presents with low blood sugar and confusion per EMS. Pt is diabetic and was fasting for blood draw this morning. Pt given d50 and now awake and alert. Related Data Home Medications ?Medication ?Instructions ?Recorded ?Confirmed ?Last Taken ?Type albuterol sulfate 90 mcg/actuation 1 inh inhalation QID PRN SOB 03/23/21 06/12/24 04/10/21 History aerosol inhaler (ProAir HFA) aspirin 81 mg tablet 81 mg PO DAILY 03/23/21 06/12/24 06/04/24 History atorvastatin 40 mg tablet 40 mg PO DAILY 03/23/21 06/12/24 06/04/24 History calcium 500 mg tablet 500 mg PO DAILY 03/23/21 06/12/24 04/10/21 History famotidine 20 mg tablet 20 mg PO BID 03/23/21 06/12/24 06/04/24 History glimepiride 4 mg tablet 4 mg PO BID 03/23/21 06/12/24 06/04/24 History lisinopril 10 mg tablet 10 mg PO DAILY 03/23/21 06/12/24 06/04/24 History metformin 500 mg tablet 500 mg PO BID 03/23/21 06/12/24 06/04/24 History multivit with minerals-iron 18 1 tablet PO DAILY 03/23/21 06/12/24 06/04/24 History mg-folic ac 400 mcg-vit K 25 mcg tablet (Adults Multivitamin) theophylline 300 mg 300 mg PO BID 03/23/21 06/12/24 06/04/24 History tablet,extended release,12 hr insulin glargine 100 unit/mL 40 unit subcut .HS 05/14/24 06/12/24 06/04/24 History subcutaneous solution (Lantus U-100 Insulin) metoprolol succinate 25 mg 25 mg PO DAILY 06/05/24 06/12/24 Unknown History tablet,extended release 24 hr Allergies Allergy/AdvReac Type Severity Reaction Status Date / Time empagliflozin (From Allergy Mild unkown Verified 06/12/24 10:49 Jardiance) ioversol Allergy Unknown Unknown Verified 06/12/24 10:49 codeine AdvReac Intermediate NAUSEA/VOMI Verified 06/12/24 10:49 TING Contrast Media Allergy Severe CARDIA/RESP Uncoded 06/12/24 10:49 ARREST Review of Systems Review of Systems: All systems reviewed & are unremarkable except as noted in HPI and below PMFSH Past Medical History Medical History (Updated 08/27/24 @ 18:47 by Will Clemente III, DO) COPD (chronic obstructive pulmonary disease) Diabetes Dark stools Weight loss Acute anemia Family History Family History Sibling Family history of alcoholism Family history of heart disease in male family member before age 55 Father Family history of lung cancer Family history of heart disease in male family member before age 55 Other Diabetes mellitus Hypertension Social History Social History Smoking packs per day: 4 Smoking cigarettes per day: 80.0 Years smoked: 60 Smoking pack-years: 240.00 Smoking status: Never smoker Alcohol intake: former Substance use: never Do You Feel Safe in your Home?: Yes Lack of Transportation: No Lack of Food: Never True Current Housing: I Have Housing Concerned About Future Housing: No Difficulty Paying Gas/Electric Bills: No Difficulty Paying for Meds: No Currently Unemployed: No Education: High School Diploma/GED Difficulty w/ Childcare or Family Care: No Spiritual care concerns: No Exam Const: General: healthy appearing and no acute distress Nutritional Appearance: well nourished Orientation/consciousness: patient oriented x3 Limitations: no limitations HENMT: Mouth: Yes Normal oral and palatal mucosa present Throat: posterior oropharynx normal Resp: Effort & Inspection: normal respiratory effort Auscultation: clear to auscultation bilaterally Cardio: Rate: regular rate Rhythm: regular rhythm GI: GI Palp: Yes Soft to palpation and No Tenderness to palpation present (GI) Auscultation: normal bowel sounds Skin: General skin exam: normal color Rashes: no rashes Wounds: no wounds Neuro: General: patient oriented x3, moves all extremities, no focal motor deficits and CN's II-XI intact bilaterally Speech: normal speech Extrem: General: normal to inspection and no clubbing, cyanosis or edema Psych: Mental Status: mental status grossly normal Affect: normal affect Attitude: cooperative Course Vital Signs Vital signs: Vital Signs Temperature 98.0 F 08/27/24 12:54 Pulse Rate 47 L 08/27/24 12:54 Respiratory Rate 14 08/27/24 12:54 Blood Pressure 104/49 L 08/27/24 12:54 Pulse Oximetry 98 08/27/24 12:54 Oxygen Delivery Room Air 08/27/24 12:54 Temperature 98.0 F 08/27/24 12:54 Pulse Rate 55 L 08/27/24 18:42 Respiratory Rate 18 08/27/24 18:42 Blood Pressure 116/51 L 08/27/24 18:42 Pulse Oximetry 98 08/27/24 18:42 Oxygen Delivery Room Air 08/27/24 12:54 Medical Decision Making MDM Narrative Medical decision making narrative: Pt hypoglycemic earlier given d50 now alert. will feed pt and recheck. Will call PCP office and try to get labs drawn that she was going to get this morning. bs dropped a bit agian but pt just started eating. fed and given juice and recheck sugar good. labs improved. SBP 93 so gave 500 ml bolus and pressure 116. Pt wants to go home. Vital Signs Vital Signs: Vital Signs Temperature 98.0 F 08/27/24 12:54 Pulse Rate 47 L 08/27/24 12:54 Respiratory Rate 14 08/27/24 12:54 Blood Pressure 104/49 L 08/27/24 12:54 Pulse Oximetry 98 08/27/24 12:54 Oxygen Delivery Room Air 08/27/24 12:54 Temperature 98.0 F 08/27/24 12:54 Pulse Rate 55 L 08/27/24 18:42 Respiratory Rate 18 08/27/24 18:42 Blood Pressure 116/51 L 08/27/24 18:42 Pulse Oximetry 98 08/27/24 18:42 Oxygen Delivery Room Air 08/27/24 12:54 Lab Data 08/27/24 16:03 08/27/24 16:03 Labs: Lab Results 08/27/24 08/27/24 08/27/24 Range/Units 13:00 16:03 16:53 WBC 4.5 (4.5-10.0) K/mm3 RBC 3.70 L (4.2-5.4) M/mm3 Hgb 10.1 L (12.0-15.0) g/dL Hct 33.6 L (37.0-47.0) % MCV 90.8 (80-100) fl MCH 27.3 (26-34) pg MCHC 30.1 L (32-36) g/dl RDW 23.4 H (11.5-14.5) % Plt Count 117 L (150-375) k/mm3 MPV 10.0 (7.4-10.4) fl Immature Gran % (Auto) 0.2 (0-0.5) % Neut % (Auto) 71.6 (45.5-73.1) % Lymph % (Auto) 16.7 L (18.3-44.2) % [place] % (Auto) 9.8 H (2.6-8.5) % Eos % (Auto) 1.3 (0-4.4) % Baso % (Auto) 0.4 (0.2-1.2) % Lymph # (Auto) 0.75 L (0.9-3.2) K/mm3 [place] # (Auto) 0.4 (0.1-0.6) K/mm3 Eos # (Auto) 0.1 (0-0.3) K/mm3 Baso # (Auto) 0.0 (0.0-0.1) K/mm3 Abs Immat Gran (auto) 0.01 (0.00-0.031) K/mm3 Absolute Neuts (auto) 3.2 (1.3-6.7) K/mm3 Absolute Nucleated RBC 0.000 (0.0-0.012) K/mm3 Band Neutrophils % Not Reportable Nucleated RBC % 0.0 (0.0-0.2) % Platelet Estimate Decreased (Adequate) % Immature Plt Fraction 6.1 (0.9-11.2) % Anisocytosis 1+ Ovalocytes 1+ Schistocytes None seen Sodium 140 (137-145) mmol/L Potassium 3.7 (3.4-5.0) mmol/L Chloride 104 (98-107) mmol/L Carbon Dioxide 34 H (22-30) mmol/L Anion Gap 2 L (4-12) mmol/L BUN 13 D (7-17) mg/dL Creatinine 0.60 L (0.7-1.0) mg/dL Estim Creat Clear Calc Not Reportable Estimated GFR > 60 (59 - ) Glucose 52 L* (65-110) mg/dL POC Capillary Glucose 93 46 L* (65-105) mg/dl Hemoglobin A1c 5.4 (<5.7) % Calcium 9.4 (8.4-10.2) mg/dL Total Bilirubin 0.3 (0.2-1.3) mg/dL AST 34 (14-36) U/L ALT 24 (6-35) U/L Alkaline Phosphatase 59 (38-126) U/L Total Protein 6.0 L (6.3-8.2) g/dL Albumin 3.5 (3.5-5.1) g/dL Triglycerides 50 (<150) mg/dL Cholesterol 88 (0-200) mg/dL LDL Cholesterol Direct < 30 mg/dL HDL Direct 49 mg/dL 08/27/24 Range/Units 17:27 WBC (4.5-10.0) K/mm3 RBC (4.2-5.4) M/mm3 Hgb (12.0-15.0) g/dL Hct (37.0-47.0) % MCV (80-100) fl MCH (26-34) pg MCHC (32-36) g/dl RDW (11.5-14.5) % Plt Count (150-375) k/mm3 MPV (7.4-10.4) fl Immature Gran % (Auto) (0-0.5) % Neut % (Auto) (45.5-73.1) % Lymph % (Auto) (18.3-44.2) % [place] % (Auto) (2.6-8.5) % Eos % (Auto) (0-4.4) % Baso % (Auto) (0.2-1.2) % Lymph # (Auto) (0.9-3.2) K/mm3 [place] # (Auto) (0.1-0.6) K/mm3 Eos # (Auto) (0-0.3) K/mm3 Baso # (Auto) (0.0-0.1) K/mm3 Abs Immat Gran (auto) (0.00-0.031) K/mm3 Absolute Neuts (auto) (1.3-6.7) K/mm3 Absolute Nucleated RBC (0.0-0.012) K/mm3 Band Neutrophils % Nucleated RBC % (0.0-0.2) % Platelet Estimate (Adequate) % Immature Plt Fraction (0.9-11.2) % Anisocytosis Ovalocytes Schistocytes Sodium (137-145) mmol/L Potassium (3.4-5.0) mmol/L Chloride (98-107) mmol/L Carbon Dioxide (22-30) mmol/L Anion Gap (4-12) mmol/L BUN (7-17) mg/dL Creatinine (0.7-1.0) mg/dL Estim Creat Clear Calc Estimated GFR (59 - ) Glucose (65-110) mg/dL POC Capillary Glucose 100 (65-105) mg/dl Hemoglobin A1c (<5.7) % Calcium (8.4-10.2) mg/dL Total Bilirubin (0.2-1.3) mg/dL AST (14-36) U/L ALT (6-35) U/L Alkaline Phosphatase (38-126) U/L Total Protein (6.3-8.2) g/dL Albumin (3.5-5.1) g/dL Triglycerides (<150) mg/dL Cholesterol (0-200) mg/dL LDL Cholesterol Direct mg/dL HDL Direct mg/dL Discharge Plan Discharge Clinical Impression: Hypoglycemia Patient Disposition: Home Condition: Improved Instructions: Antibiotic Form, Hypoglycemia in a Person with Diabetes (DC) Patient Language: Portuguese Prescriptions: No Action insulin glargine [Lantus U-100 Insulin] 100 unit/mL solution 40 unit subcut .HS atorvastatin 40 mg Tablet 40 mg PO DAILY metformin 500 mg Tablet 500 mg PO BID calcium 500 mg Tablet 500 mg PO DAILY theophylline 300 mg tablet extended release 12 hr 300 mg PO BID famotidine 20 mg Tablet 20 mg PO BID lisinopril 10 mg Tablet 10 mg PO DAILY glimepiride 4 mg Tablet 4 mg PO BID aspirin 81 mg Tablet 81 mg PO DAILY albuterol sulfate [ProAir HFA] 90 mcg/actuation Hfa Aerosol Inhaler 1 inh INHALATION QID PRN (Reason: SOB) Adults Multivitamin 18 mg iron-400 mcg-25 mcg Tablet 1 tablet PO DAILY metoprolol succinate 25 mg tablet extended release 24 hr 25 mg PO DAILY Follow-up/Referrals: Justice,Dain Stanford MD [Primary Care Provider] -
[2024-08-27 16:23] LABS: Alanine Aminotransferase 24 U/L (6-35); Albumin Level 3.5 g/dL (3.5-5.1); Alkaline Phosphatase 59 U/L (38-126); Anion Gap 2 mmol/L (4-12); Aspartate Amino Transferase 34 U/L (14-36); Bilirubin,Total 0.3 mg/dL (0.2-1.3); Blood Urea Nitrogen 13 mg/dL (7-17); Calcium 9.4 mg/dL (8.4-10.2); Carbon Dioxide 34 mmol/L (22-30); Chloride 104 mmol/L (98-107); Cholesterol 88 mg/dL (0-200); Estimated Glomerular Filt Rate > 60; Glucose 52 mg/dL (65-110); HDL Direct 49 mg/dL; Potassium 3.7 mmol/L (3.4-5.0); Sodium 140 mmol/L (137-145); Triglycerides 50 mg/dL (<150)
[2024-08-27 16:29] VITALS: BP 103/42; PULSE 53; RESP 14; O2SAT 100
[2024-08-27 16:57] LABS: Glucose Point of Care 46 mg/dl (65-105)
[2024-08-27 17:03] LABS: Basophils Percent Auto 0.4 % (0.2-1.2); Eosinophils Absolute Auto 0.1 K/mm3 (0-0.3); Eosinophils Percent Auto 1.3 % (0-4.4); Hematocrit 33.6 % (37.0-47.0); Hemoglobin 10.1 g/dL (12.0-15.0); Immature Granulocyte Absolute 0.01 K/mm3 (0.00-0.031); Immature Granulocyte Percent A 0.2 % (0-0.5); Immature Platelet Fraction Pct 6.1 % (0.9-11.2); Lymphocytes Absolute Auto 0.75 K/mm3 (0.9-3.2); Lymphocytes Percent Auto 16.7 % (18.3-44.2); Mean Corpuscular HGB Conc 30.1 g/dl (32-36); Mean Corpuscular Hemoglobin 27.3 pg (26-34); Mean Corpuscular Volume 90.8 fl (80-100); Monocytes Absolute Auto 0.4 K/mm3 (0.1-0.6); Monocytes Percent Auto 9.8 % (2.6-8.5); Neutrophils Absolute Auto 3.2 K/mm3 (1.3-6.7); Neutrophils Percent Auto 71.6 % (45.5-73.1); Platelet Count Result 117 k/mm3 (150-375); Red Cell Distribution Width 23.4 % (11.5-14.5); White Blood Count 4.5 K/mm3 (4.5-10.0)
[2024-08-27 17:04] LABS: Anisocytosis 1+; Platelet Estimate Decreased (Adequate)
[2024-08-27 17:05] LABS: Ovalocytes 1+; Schistocytes None Seen
[2024-08-27 17:26] LABS: Hemoglobin A1C 5.4 % (<5.7)
[2024-08-27 17:31] LABS: Glucose Point of Care 100 mg/dl (65-105)
[2024-08-27 17:40] LABS: LDL Cholesterol Direct < 30 mg/dL
[2024-08-27 17:46] VITALS: BP 93/46; PULSE 54; RESP 16; O2SAT 98
[2024-08-27] MEDS: SODIUM CHLORIDE 0.9% IV 500 ML 999 ML IV CONT (18:25)
[2024-08-27 18:42] VITALS: BP 116/51; PULSE 55; RESP 18; O2SAT 98
== END 2024-08-27 19:20 | disposition home or self-care (01) ==
PROVIDERS: Emergency Provider Emergency Medicine; PCP Internal Medicine
DX: E11.649 Type 2 diabetes mellitus with hypoglycemia without coma (principal); J44.9 Chronic obstructive pulmonary disease, unspecified; D64.9 Anemia, unspecified; F17.210 Nicotine dependence, cigarettes, uncomplicated; Z79.84 Long term (current) use of oral hypoglycemic drugs; Z79.4 Long term (current) use of insulin; Z79.899 Other long term (current) drug therapy
CPT/HCPCS: 36415; 80053; 80061; 82948; 83036; 85025; 85055; 96360; 99283; J7040

== ENCOUNTER 2024-10-10 00:32 | Inpatient (IN) | payer MEDICARE, SELFPAY ==
[2024-10-10] VITALS (37 sets, daily range): BP systolic 107–147; BP diastolic 43–68; PULSE 55–105; RESP 11–28; TEMP 36.6–37.3; O2SAT 93–100; BMI 27.7
--- NOTE | ~2024-10-10 | CT_ITS ---
CLINICAL INDICATION: Upper GI bleeding COMPARISON: 06/30/2024. TECHNIQUE: Multiple contiguous axial images of the abdomen and pelvis were performed without the admi nistration of intravenous contrast The dose-length product (DLP) was 358.58 mGy-cm. Automated exposure control and iterative reconstruction technique were employed. FINDINGS/OBSERVATIONS: Visualized lower thorax: The bilateral lung bases are clear. The heart is of normal size, without pericardial effusion. Small hiatal hernia is present. Liver: The liver demonstrates homogeneous attenuation and is not enlarged. Gallbladder is surgically absent. Pneumobilia is identified within the liver, primarily the left lobe suggesting prior sphincterotomy. Pancreas: Limited evaluation of the pancreas secondary to the lack of intravenous contrast. Spleen: Punctate calcifications identified within the splenic parenchyma, suggesting prior granulomat ous disease. The spleen demonstrates homogeneous attenuation and is not enlarged. Kidneys: The bilateral kidneys are unremarkable, without hydronephrosis or renal calculi. Adrenal glands: Unremarkable. Gastrointestinal tract: Nasogastric tube extends into the stomach. Multiple loops of dilated proximal small bowel with interloop inflammatory change and fluid, findings consistent with small bowel obstruction. Colonic diverticulosis without surrounding inflammatory change Appendix: The appendix is not definitively visualized. However, no pericecal inflammatory change is identified suggest the presence of acute appendicitis. Vasculature: Calcified atherosclerotic disease. Lymph nodes: Limited evaluation without intravenous contrast. Pelvic structures: The bladder is distended, and otherwise unremarkable. The uterus is either atrophic or surgically absent. Body wall and musculoskeletal: Small fat-containing umbilical hernia. Age-appropriate degenerative disease within the lower thoracic and lumbosacral spine. IMPRESSION: Partial small bowel obstruction with air identified in the colon and rectum. Reviewed, dictated and finalized at location A.
--- NOTE | ~2024-10-10 | XR_ITS ---
Exam: Abdomen 1V HISTORY: ugib/ NG PLACEMENT COMPARISON: None. TECHNIQUE: Supine images of the lower chest and upper abdomen FINDINGS: Nasogastric tube extends into the left upper quadrant, presumably within the stomach. IMPRESSION: Nasogastric tube in good position and ready for immediate use. Reviewed, dictated and finalized at location A.
--- NOTE | ~2024-10-10 | XR_ITS ---
EXAMINATION: XR chest PICC line DATE: 10/15/2024 14:34 INDICATION: PICC line placement. Shortness of breath with new hypoxia TECHNIQUE: frontal view of the chest was obtained. COMPARISON: Chest radiograph dated 06/05/[address] dated 06/30/2024 FINDINGS: Right upper extremity peripherally inserted central venous catheter (PICC) tip at the mid superior v jeff cava. Elevation of the lateral left hemidiaphragm with streaky and linear opacities in the left lower lung zone most consistent with atelectasis. Right lung remains clear. No pleural effusion or pn eumothorax. Heart size is normal. Calcified right paratracheal lymph nodes and calcified splenic nodu les consistent with old granulomatous disease. IMPRESSION: 1. Right PICC line tip at the midsuperior vena cava. 2. Opacities at the left lung base with associated elevation the left hemidiaphragm and favor atelect asis over pneumonia. Reviewed, dictated and finalized at location A. IMPRESSION: 1. Right PICC line tip at the midsuperior vena cava. 2. Opacities at the left lung base with associated elevation the left hemidiaph ragm and favor atelectasis over pneumonia.
--- NOTE | ~2024-10-10 | XR_ITS ---
EXAMINATION: XR small bowel follow through DATE: 10/12/2024 15:30 INDICATION: Small bowel obstruction TECHNIQUE: Client Services Representative radiograph(s) of the abdomen was/were obtained. Water-soluble oral contrast was admi nistered by the patient's existing nasogastric tube, and sequential radiographs of the abdomen were o btained until oral contrast was noted to be in the proximal colon. COMPARISON: CT dated 10/11/2024 FINDINGS: There are few gas-filled but not frankly dilated loops of small bowel in the central abdomen on the s cout images. Nasogastric tube tip projects within the body the stomach. Cholecystectomy clips in righ t upper quadrant. A 1.6 cm ovoid stone projecting over the region of the left renal pelvis. Transit time from the stomach to proximal colon was approximately 2 hours. The jejunum appears largel y decompressed. There is normal mucosal fold pattern throughout the small bowel. There is a large umair unt of residual contrast within the stomach on the 4 hour delayed imaging suggesting gastroparesis. T here is elevation the left hemidiaphragm. IMPRESSION: 1. Normal small bowel transit time to the cecum of 2 hours with no frankly dilated loops of small bow el to suggest obstruction. 2. Large amount of residual contrast within the stomach on the 4 hour delayed images suggestive of ga stroparesis. 3. Unchanged 1.6 cm left renal stone. Reviewed, dictated and finalized at location A. IMPRESSION: 1. Normal small bowel transit time to the cecum of 2 hours with no frankly dila lynne loops of small bowel to suggest obstruction. 2. Large amount of residual contrast within the stomach on the 4 hour delayed i mages suggestive of gastroparesis. 3. Unchanged 1.6 cm left renal stone.
--- NOTE | ~2024-10-10 | XR_ITS ---
EXAM: XR abdomen/kub 1V DATE: 10/11/2024 14:42 HISTORY: NG tube placement verify . COMPARISON: CT abdomen pelvis, same date. FINDINGS: NG tube, tip over the stomach, side port at the GE junction. Left hemidiaphragm elevation. Subsegmental bibasilar opacity and mild bilateral costophrenic angle blunting. Degenerative changes in the spine. 14 mm calcification in the left upper quadrant, corresponding to the left renal pelvis stone in the prior CT. IMPRESSION: Shallow positioned NG tube, consider advancing by 5 cm. Subsegmental bibasilar atelectasi s/consolidation, with trace bilateral pleural effusions. Reviewed, dictated and finalized at location K. IMPRESSION: Shallow positioned NG tube, consider advancing by 5 cm. Subsegmenta l bibasilar atelectasis/consolidation, with trace bilateral pleural effusions.
--- NOTE | ~2024-10-10 | CT_ITS ---
CT abdomen pelvis wo con Ordering provider: Mercedes Blas History: 84 years Female with . LLQ abdominal pain, postop, hx diverticulitis . Comparison: October 11, 2024 Technique: CT abdomen and pelvis without IV and without oral contrast. Automated exposure control and iterative reconstruction technique were employed. The dose-length product was 398.58 mGy-cm. Findings: VISUALIZED LOWER CHEST: Right basilar atelectasis with minimal pleural effusion. Minimal left basilar atelectasis. Minimal atelectasis in the lingula. UPPER ABDOMINAL ORGANS: Liver: Pneumobilia is noted. Minimal fluid around the liver is noted. Gallbladder: Status post cholecystectomy. Spleen: Benign calcification. Minimal fluid seen around the spleen. Stomach/duodenum: Normal. Pancreas: Atrophic. Adrenals: Bilateral adrenal adenomas. Kidneys: Stone in the left renal pelvis is seen measuring 1.8 x 1.1 cm. Mild left hydronephrotic burks ges seen. PELVIC ORGANS: The bladder is normal. BOWEL AND MESENTERY: Colon: No evidence of diverticulitis. .. Normal appendix. Small Bowel: Normal. No obstruction. Peritoneum/mesentery: No free air. Minimal fluid is seen in the pelvis. 3. No mesenteric lymphadenopathy. RETROPERITONEUM: Mild atheromatous disease of the abdominal aorta. No retroperitoneal lymphadenopat hy. MUSCULOSKELETAL: Superficial soft tissues: Edema in the subcutaneous tissues is noted. Minimal fluid is seen in the ar ea umbilicus area most likely postoperative. Otherwise, The superficial soft tissues are normal. Bones: Age appropriate degenerative changes of the spine. Pubic symphysitis. Bilateral mild hip osteo arthritic changes. Bilateral sacroiliitis. IMPRESSION: 1. No evidence of appendicitis, diverticulitis or intestinal obstruction. 2. Ascites seen in the pelvis and around the liver and spleen. 3. Stone in the left renal pelvis. Reviewed, dictated and finalized at location A.
--- NOTE | ~2024-10-10 | XR_ITS ---
Exam: Abdomen 1V HISTORY: SBO COMPARISON: Reference is made to a small bowel follow through, performed 24 hours earlier as well as the examination of the abdomen and pelvis dated 10/11/2024 TECHNIQUE: Supine images of the abdomen FINDINGS: Contrast now opacifies ascending, transverse and descending colon. Within the right hemipelvis is a 7 x 4 mm oval shaped focus of contrast opacification which is anteri or to a loop of small bowel. On CT examination this area demonstrated small bowel loops only. This area may represent superimposed small bowel, causing this shape. Lateral decubitus imaging would provide additional information. As would CT examination. IMPRESSION: Indeterminate loop of likely superimposed small bowel within the right hemipelvis with additional con trast now opacifying the ascending, transverse and descending colons Reviewed, dictated and finalized at location A. IMPRESSION: Indeterminate loop of likely superimposed small bowel within the right hemipelv is with additional contrast now opacifying the ascending, transverse and descen ding colons
--- NOTE | ~2024-10-10 | XR_ITS ---
Upright portable view of the abdomen Clinical history: NG tube placement COMPARISON: 10/13/2024 Findings: NG tube in place, side port just below the diaphragm. Bowel gas pattern is nonspecific. No evidence for obstruction or free air. No abnormal mass lesion or calcification is seen. Osseous struc tures are intact. Impression: NG tube in place, side port just below the diaphragm. Reviewed, dictated and finalized at location . Impression: NG tube in place, side port just below the diaphragm.
--- NOTE | ~2024-10-10 | XR_ITS ---
EXAM: XR abdomen gastric tube rechec DATE: 10/11/2024 16:31 HISTORY: recheck NG placement . COMPARISON: Same date at 2:40 PM. FINDINGS/IMPRESSION: NG tube now in good position. Dilated small bowel loops over the upper abdomen. Reviewed, dictated and finalized at location K.
--- NOTE | ~2024-10-10 | XR_ITS ---
Portable chest x-ray Comparison: 10/15/2024 Clinical History: PICC line placement Findings: Left-sided PICC line in satisfactory position. NG tube in satisfactory position. There is probable small right pleural effusion with minimal right basilar haziness. Left lung clear. Cardiome diastinal silhouette is stable. Bones and soft tissues are unremarkable. Impression: Support tubes in place, as above. Minimal right pleural effusion and probable minimal right basilar atelectatic change. Reviewed, dictated and finalized at location . Impression: Support tubes in place, as above. Minimal right pleural effusion and probable minimal right basilar atelectatic gretchen phillips.
--- NOTE | ~2024-10-10 | CT_ITS ---
CLINICAL INDICATION: Abdominal distention COMPARISON: 10/10/2024, performed for upper GI bleed. TECHNIQUE: Multiple contiguous axial images of the abdomen and pelvis were performed without the admi nistration of intravenous contrast The dose-length product (DLP) was 177.86 mGy-cm. Automated exposure control and iterative reconstruction technique were employed. FINDINGS/OBSERVATIONS: Visualized lower thorax: Interval development of small bilateral pleural effusions, with adjacent compressive atelectasis. The remainder of the bilateral lung bases are clear. The heart is of normal size, with a small pericardial effusion, increased from yesterday's examinatio n. Small hiatal hernia is present which extends into the fluid-filled distended stomach, also an interva l change from previous days examination (when NG tube was in place, now removed). Liver: The liver demonstrates homogeneous attenuation and is not enlarged. Interval development of perihepat ic free fluid, when compared with previous days examination. Gallbladder and biliary system: The gallbladder is surgically absent. Pancreas: Limited evaluation of the pancreas secondary to the lack of intravenous contrast. Spleen: Punctate calcifications identified within the splenic parenchyma, suggesting prior granulomat ous disease. The remainder of the spleen demonstrates otherwise homogeneous attenuation and is not enlarged. Peris plenic fluid is now identified, an interval change from previous days examination. Kidneys: Redemonstration of a 16 mm calculus within the left renal pelvis. The remainder of the bilateral kidneys are otherwise unremarkable, without hydronephrosis or addition al renal calculi. Adrenal glands: Unremarkable. Gastrointestinal tract: Redemonstration of multiple loops of dilated fluid-filled small bowel which extends into the pelvis. No discrete transition point is appreciated. Small bowel is extended to a maximal caliber of 3.3 cm. Rectosigmoid diverticulosis and mural thickening is present. Evaluation for the presence or absence o f surrounding inflammatory change is limited secondary to the lack of intravenous contrast as well as the lack of intrapelvic fat. Appendix: The appendix is not definitively visualized. However, no pericecal inflammatory change is identified suggest the presence of acute appendicitis. Vasculature: Densely calcified atherosclerotic disease. Lymph nodes: Limited evaluation without intravenous contrast. However, adjacent to the densely calcified abdominal aorta are multiple rounded areas of soft tissue attenuation for which lymphadenopathy is suspected. Pelvic structures: The bladder is only minimally distended, and otherwise unremarkable. The uterus is poorly visualized secondary to the lack of intravenous contrast and intrapelvic fat. Body wall and musculoskeletal: Age-appropriate degenerative disease within the lower thoracic and lumbosacral spines. IMPRESSION: Interval removal of the nasogastric tube when compared with previous examination. Redemonstration of multiple loops of prominent fluid-filled small bowel loops which extend into the p carmelo for which small bowel obstruction is suspected. Rectosigmoid diverticulosis and mural thickening with limited evaluation for surrounding inflammatory change secondary to the lack of intravenous contrast and the lack of intrapelvic fat. Retroperitoneal lymphadenopathy is suspected, although detection is limited without intravenous contr ast. Perihepatic and perisplenic fluid is now identified, an interval change from previous days examinatio n. Given the culmination of findings (as detailed above) premedication for patient's contrast allergy is recommended with repeat evaluation with intravenous contrast. Reviewed, dictated and finalized at location A. IMPRESSION: Interval removal of the nasogastric tube when compared with previous examinatio n. Redemonstration of multiple loops of prominent fluid-filled small bowel loops w hich extend into the pelvis for which small bowel obstruction is suspected. Rectosigmoid diverticulosis and mural thickening with limited evaluation for morales rrounding inflammatory change secondary to the lack of intravenous contrast and the lack of intrapelvic fat. Retroperitoneal lymphadenopathy is suspected, although detection is limited wit hout intravenous contrast. Perihepatic and perisplenic fluid is now identified, an interval change from pr evious days examination. Given the culmination of findings (as detailed above) premedication for patient 's contrast allergy is recommended with repeat evaluation with intravenous cont rast.
--- NOTE | 2024-10-10 00:48 | ED_ITS ---
HPI - GI Bleed General Chief complaint: GI Bleed Stated complaint: Coffee Ground Emesis/LUQ pain History of Present Illness HPI Narrative: 84-year-old female with a past medical history including anemia presenting to the emergency department with upper GI bleeding symptoms. She states she has had 2 days of coffee-ground emesis. Once yesterday and 2 episodes today with large voluminous black discolored material with coffee-ground discoloration visible as reported by EMS. Patient states she has been having some left upper quadrant abdominal pain for last 2 days that preceded the nausea and vomiting. Endorses having entire workups for the GI system including endoscopies, colonoscopies, capsule endoscopies done in June of this year. No acute findings aside from some diverticula and hiatal hernia without any gastritis. She does not see a GI doctor presently in this happened on inpatient basis. She has required transfusions before for suspected anemia from blood loss. Presently she is complaining of left upper quadrant abdominal pain and some nauseousness. No dark stools or blood in the rectum, no chest pain difficulty in breathing. No trauma or injury. She takes a baby aspirin but no other NSAIDs. Related Data Home Medications ?Medication ?Instructions ?Recorded ?Confirmed ?Last Taken ?Type albuterol sulfate 90 mcg/actuation 1 inh inhalation QID PRN SOB 03/23/21 06/12/24 04/10/21 History aerosol inhaler (ProAir HFA) aspirin 81 mg tablet 81 mg PO DAILY 03/23/21 06/12/24 06/04/24 History atorvastatin 40 mg tablet 40 mg PO DAILY 03/23/21 06/12/24 06/04/24 History calcium 500 mg tablet 500 mg PO DAILY 03/23/21 06/12/24 04/10/21 History famotidine 20 mg tablet 20 mg PO BID 03/23/21 06/12/24 06/04/24 History glimepiride 4 mg tablet 4 mg PO BID 03/23/21 06/12/24 06/04/24 History lisinopril 10 mg tablet 10 mg PO DAILY 03/23/21 06/12/24 06/04/24 History metformin 500 mg tablet 500 mg PO BID 03/23/21 06/12/24 06/04/24 History multivit with minerals-iron 18 1 tablet PO DAILY 03/23/21 06/12/24 06/04/24 History mg-folic ac 400 mcg-vit K 25 mcg tablet (Adults Multivitamin) theophylline 300 mg 300 mg PO BID 03/23/21 06/12/24 06/04/24 History tablet,extended release,12 hr insulin glargine 100 unit/mL 40 unit subcut .HS 05/14/24 06/12/24 06/04/24 History subcutaneous solution (Lantus U-100 Insulin) metoprolol succinate 25 mg 25 mg PO DAILY 06/05/24 06/12/24 Unknown History tablet,extended release 24 hr Allergies Allergy/AdvReac Type Severity Reaction Status Date / Time empagliflozin (From Allergy Mild unkown Verified 10/10/24 01:10 Jardiance) ioversol Allergy Unknown Unknown Verified 10/10/24 01:10 codeine AdvReac Intermediate NAUSEA/VOMI Verified 10/10/24 01:10 TING Contrast Media Allergy Severe CARDIA/RESP Uncoded 10/10/24 01:10 ARREST Review of Systems 2 Review of Systems: As reviewed above in [facility] Past Medical History Medical History COPD (chronic obstructive pulmonary disease) Diabetes Dark stools Weight loss Acute anemia Family History Family History Sibling Family history of alcoholism Family history of heart disease in male family member before age 55 Father Family history of lung cancer Family history of heart disease in male family member before age 55 Other Diabetes mellitus Hypertension Social History Social History Smoking packs per day: 4 Smoking cigarettes per day: 80.0 Years smoked: 60 Smoking pack-years: 240.00 Smoking status: Never smoker Alcohol intake: former Substance use: never Do You Feel Safe in your Home?: Yes Lack of Transportation: No Lack of Food: Never True Current Housing: I Have Housing Concerned About Future Housing: No Difficulty Paying Gas/Electric Bills: No Difficulty Paying for Meds: No Currently Unemployed: No Education: High School Diploma/GED Difficulty w/ Childcare or Family Care: No Spiritual care concerns: No Exam 2 Narrative: GENERAL: [Well-appearing, well-nourished, and in no acute distress.] HEAD: [Normocephalic, atraumatic.] EYES: [PERRLA and EOMI.] ENT: Nares clear, no rhinorrhea or epistaxis. Mucous membranes moist. NECK: Supple. CHEST: [Clear to auscultation. No respiratory distress.] HEART: [Regular rate and rhythm]. No murmur heard. [Normal peripheral pulses.] ABDOMEN: [Soft, nondistended], tender to palpation left upper quadrant, [No rigidity or guarding] EXTREMITIES: Normal range of motion. [No edema.] SKIN: Warm, dry, no rash. NEURO: [No focal deficits]. Alert and oriented [x3.] PSYCH: [Normal mood and affect.] Course Vital Signs Vital signs: Vital Signs Temperature 37.3 C 10/10/24 00:34 Pulse Rate 66 10/10/24 00:34 Respiratory Rate 15 10/10/24 00:34 Blood Pressure 138/64 10/10/24 00:34 Pulse Oximetry 97 10/10/24 00:34 Oxygen Delivery Room Air 10/10/24 00:34 Temperature 37.3 C 10/10/24 00:34 Pulse Rate 61 10/10/24 02:32 Respiratory Rate 15 10/10/24 02:32 Blood Pressure 132/55 L 10/10/24 02:32 Pulse Oximetry 100 10/10/24 02:32 Oxygen Delivery Nasal Cannula 10/10/24 01:26 Oxygen Flow Rate 2 10/10/24 01:26 MDM - GI Bleed MDM Narrative Medical decision making narrative: 84-year-old female with a past medical history including anemia presenting to the emergency department with upper GI bleeding symptoms. She states she has had 2 days of coffee-ground emesis. Once yesterday and 2 episodes today with large voluminous black discolored material with coffee-ground discoloration visible as reported by EMS. Patient states she has been having some left upper quadrant abdominal pain for last 2 days that preceded the nausea and vomiting. Endorses having entire workups for the GI system including endoscopies, colonoscopies, capsule endoscopies done in June of this year. No acute findings aside from some diverticula and hiatal hernia without any gastritis. She does not see a GI doctor presently in this happened on inpatient basis. She has required transfusions before for suspected anemia from blood loss. Presently she is complaining of left upper quadrant abdominal pain and some nauseousness. No dark stools or blood in the rectum, no chest pain difficulty in breathing. No trauma or injury. She takes a baby aspirin but no other NSAIDs. Patient is not any acute distress and has stable vital signs with any hypertension, tachycardia, fever, hypoxia. She has a tender abdomen left upper quadrant focally with associated nausea and vomiting of coffee-ground emesis concerning for potential gastritis, upper GI bleed, ulceration. She had negative endoscopies on review of the scope in June of this year so acute onset peptic ulcer disease is odd. CT scans of the abdomen pelvis without contrast given her allergy to contrast medium was obtained. NG tube was inserted for irrigation to see if there is any blood products or coffee-ground material. Basic laboratory studies, type and screen, lactic acid and coagulation panels obtained. She was given morphine and Zofran as well as Protonix and fluid bolus. Patient had immediate return of over 600 mL of coffee-ground emesis through her NG tube and had significant improvement in her nausea and vomiting. Abdominal pain also improved with morphine. NG tube set to low intermittent suction. CT scan was independently reviewed and also interpreted by radiology with evidence of fluid distended loops of bowel with fecalization distally consistent with slow transit and chronic outlet obstruction. She also has some left-sided renal pelvis stones, no hydronephrosis, remaining organs within normal limits. Diverticulosis is seen, no appendicitis, no fractures. Patient re-evaluated several times and had continued output of up to 100 mL of coffee-ground emesis per hour for the last several hours. She still remained feeling improved without any residual nausea or pain and stable vitals. Discussed the case with the on-call beam dyer recessed vat Dr. Leyva and we went over patient's clinical exam, imaging studies and laboratory assessment. Hemoglobin is 12.1, will trend her hemoglobin every [address] her on b.i.d. PPI with making her NPO at this time for endoscopy in the morning. Patient remains hemodynamically stable during re-evaluations, placed on fluids, pain medicines ordered, and PRNs placed. Discussed the case with the hospitalist for admission to a telemetry monitored bed at this time. Patient accepted to the hospital. Medical Records Attestation: I reviewed the patient's medical records. Lab Data Attestation: I reviewed the patient's lab results. 10/10/24 01:06 10/10/24 01:06 Labs: Lab Results 10/10/24 10/10/24 Range/Units 01:06 03:23 WBC 12.9 H (4.5-10.0) K/mm3 RBC 4.08 L (4.2-5.4) M/mm3 Hgb 12.1 (12.0-15.0) g/dL Hct 37.4 (37.0-47.0) % MCV 91.7 (80-100) fl MCH 29.7 (26-34) pg MCHC 32.4 (32-36) g/dl RDW 18.4 H (11.5-14.5) % Plt Count 133 L (150-375) k/mm3 MPV 10.4 (7.4-10.4) fl Immature Gran % (Auto) 0.5 (0-0.5) % Neut % (Auto) 81.3 H (45.5-73.1) % Lymph % (Auto) 7.7 L (18.3-44.2) % [place] % (Auto) 10.3 H (2.6-8.5) % Eos % (Auto) 0.0 (0-4.4) % Baso % (Auto) 0.2 (0.2-1.2) % Lymph # (Auto) 1.00 (0.9-3.2) K/mm3 [place] # (Auto) 1.3 H (0.1-0.6) K/mm3 Eos # (Auto) 0.0 (0-0.3) K/mm3 Baso # (Auto) 0.0 (0.0-0.1) K/mm3 Abs Immat Gran (auto) 0.07 H (0.00-0.031) K/mm3 Absolute Neuts (auto) 10.5 H (1.3-6.7) K/mm3 Absolute Nucleated RBC 0.000 (0.0-0.012) K/mm3 Nucleated RBC % 0.0 (0.0-0.2) % % Immature Plt Fraction 7.1 (0.9-11.2) % PT 14.2 (11.1-14.7) Seconds INR 1.1 APTT 24.5 (22.3-36.8) Seconds Sodium 139 (137-145) mmol/L Potassium 3.5 (3.4-5.0) mmol/L Chloride 96 L (98-107) mmol/L Carbon Dioxide 34 H (22-30) mmol/L Anion Gap 9 (4-12) mmol/L BUN 24 H D (7-17) mg/dL Creatinine 0.77 (0.7-1.0) mg/dL Estim Creat Clear Calc Not Reportable Estimated GFR > 60 (59 - ) Glucose 199 H (65-110) mg/dL Lactic Acid 2.2 H 1.1 (0.7-2.0) mmol/L Calcium 11.0 H (8.4-10.2) mg/dL Magnesium 1.6 (1.6-2.3) mg/dL Total Bilirubin 0.6 (0.2-1.3) mg/dL AST 34 (14-36) U/L ALT 25 (6-35) U/L Alkaline Phosphatase 72 (38-126) U/L Total Protein 7.5 (6.3-8.2) g/dL Albumin 4.4 (3.5-5.1) g/dL Blood Type A Negative Antibody Screen Negative Imaging Data Attestation: I personally reviewed and interpreted this imaging study as follows: My impression: Fluid distended loops of small bowel fecalization, slow transit and chronic outlet obstruction Critical Care Time Critical Care Time Critical Care Time: Yes Total Critical Care Time: 35 Discharge Plan Discharge Clinical Impression: UGIB (upper gastrointestinal bleed), Coffee ground emesis Patient Disposition: Still a Patient Condition: Stable Patient Language: Romanian Prescriptions: No Action insulin glargine [Lantus U-100 Insulin] 100 unit/mL solution 40 unit subcut .HS atorvastatin 40 mg Tablet 40 mg PO DAILY metformin 500 mg Tablet 500 mg PO BID calcium 500 mg Tablet 500 mg PO DAILY theophylline 300 mg tablet extended release 12 hr 300 mg PO BID famotidine 20 mg Tablet 20 mg PO BID lisinopril 10 mg Tablet 10 mg PO DAILY glimepiride 4 mg Tablet 4 mg PO BID aspirin 81 mg Tablet 81 mg PO DAILY albuterol sulfate [ProAir HFA] 90 mcg/actuation Hfa Aerosol Inhaler 1 inh INHALATION QID PRN (Reason: SOB) Adults Multivitamin 18 mg iron-400 mcg-25 mcg Tablet 1 tablet PO DAILY metoprolol succinate 25 mg tablet extended release 24 hr 25 mg PO DAILY Follow-up/Referrals: Justice,Dain Stanford MD [Primary Care Provider] - Time of Disposition: 03:59
[2024-10-10] MEDS: SODIUM CHLORIDE 0.9% IV 1,000 ML 999 ML IV CONT (00:51)
[2024-10-10] MEDS: ONDANSETRON INJ 4 MG/2 ML VIAL IV PUSH ×3 (00:51→22:47)
[2024-10-10] MEDS: PANTOPRAZOLE SODIUM IV 40 MG VIAL IV PUSH ×2 (00:52→09:25)
--- OUTSIDE RECORDS SUMMARY | 2024-10-10 00:59 | XMS_ITS | Referral Summary ---
Author Organization [facility] Address [address] [place] [id number] Care Team Providers Care Industrial Relations Officer Name Role Phone Dain Rendon MD Primary [...] MOUTH DAILY 90 tablet 1 5 Active atorvastatin (LIPITOR) 40 mg tablet TAKE 1 TABLET(40 MG) BY MOUTH DAILY 90 tablet 5 Active Active Problems Problem Noted Date [...] on file Legal Sex Female 12:27 AM CANDY SEPARATOR ENROBING Gender Identity Not on file Sexual Orientation Not on file Last Filed Vital Signs Vital Sign Reading Time Taken Comments Blood Pressure 136/60 03/18/2024 2:12 PM CANDY SEPARATOR ENROBING Pulse 75 03/18/2024 2:12 PM CANDY SEPARATOR ENROBING Temperature - - Respiratory Rate - - Oxygen Saturation 97% 03/18/2024 2:12 PM CANDY SEPARATOR ENROBING Inhaled Oxygen Concentration - - Weight 68.9 kg (152 lb) 03/18/2024 2:12 PM CANDY SEPARATOR ENROBING Height 149.9 cm (4' 11) 03/18/2024 2:12 PM CANDY SEPARATOR ENROBING Body Mass Index 30.7 03/18/2024 2:12 PM CANDY SEPARATOR ENROBING Plan of Treatment Not on file Procedures [...] Most Recently Relevant to Health Maintenance Insurance [facility] MEDICARE ADVANTAGE [facility] Address: [facility] [address] [place] [address] [facility] MEDICARE ADVANTAGE [facility] MEDIC[facility] Address: [address] [address] [place] [phone] Care Teams Industrial Relations Officer Relationship Specialty Start Date End Date Dain Rendon MD PCP - General 01/02/10
--- OUTSIDE RECORDS SUMMARY | 2024-10-10 00:59 | XMS_ITS | Clinical Summary ---
Author Organization [facility] Address [address] [place] [id number] Care Team Providers Care Machine Tool Technology Instructor Name Role Phone Dain Rendon MD Primary [...] Cholecystectomy TONSILLECTOMY Tonsillectomy HIP ARTHROPLASTY Hip replacement OH APPENDECTOMY Appendectomy - (Added by TW Conv) OH TONSILLECTOMY PRIMARY/SEC ONDARY <AGE 12 Tonsillectomy - (Added by TW Conv) GALLBLADDER SURGERY Gallbladder Surgery - (Added by TW Conv) HIP SURGERY Hip Surgery - (Added by TW Conv) OH HEMORRHOIDECTOMY INTERNAL RUBBER BAND LIGATIONS Hemorrhoidectomy - (Added by TW Conv) ROTATOR CUFF REPAIR Rotator Cuff Repair - (Added by TW Conv) OH BIOPSY BREAST OPEN INCISIONAL Incisional Breast Biopsy - (Added by TW Conv) OH LAPS ABD PRTM&OMENTUM DX W/WO SPEC BR/WA SPX Laparoscopy (Diagnostic) - (Added by TW Conv) OH CYSTO W/INSERT URETERAL STENT Cystoscopy With Insertion Of Ureteral Stent - (Added by TW Conv) OH SLING OPERATION STRESS INCONTINENCE Vaginal Sling Operation For Stress Incontinence - (Added by TW Conv) OH CMBND ANTERPOST COLPORRAP HY W/CYSTO W/NTRCL RPR Colporrhaphy Combined A-P And Enterocele Repair - (Added by TW Conv) OH COLPOCLEISIS [place] TYPE Vaginal Colpocleisis ([place] Procedure) - (Added by TW Conv) OH VAGINECTOMY COMPLETE ENRIQUE JINNY VAGINAL WALL Vaginectomy [...] diabetes mellitus - (Added by TW Conv) correction current use of aspirin Current use of [...] bilateral COPD (chronic obstructive pu lmonary disease) ([facility]) Arthritis Family History Medical History Relation Name [...] on file Legal 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 Gender Identity Not on file Sexual Orientation Not on file Obstetrics History Last Filed Vital Signs Vital Sign Reading Time Taken Comments Blood Pressure 136/60 03/18/2024 2:12 PM SWITCHBOARD MANAGER Pulse 75 03/18/2024 2:12 PM SWITCHBOARD MANAGER Temperature - - Respiratory Rate - - Oxygen Saturation 97% 03/18/2024 2:12 PM SWITCHBOARD MANAGER Inhaled Oxygen Concentration - - Weight 68.9 kg (152 lb) 03/18/2024 2:12 PM SWITCHBOARD MANAGER Height 149.9 cm (4' 11) 03/18/2024 2:12 PM SWITCHBOARD MANAGER Body Mass Index 30.7 03/18/2024 2:12 PM SWITCHBOARD MANAGER Plan of Treatment Health Maintenance Due Date [...] Most Recently Relevant to Health Maintenance Insurance [facility] MEDICARE ADVANTAGE [facility] MEDICARE ADVANTAGE Care Teams Machine Tool Technology Instructor Relationship Specialty Start Date End Date Dain Rendon MD PCP - General 01/02/10
--- OUTSIDE RECORDS SUMMARY | 2024-10-10 00:59 | XMS_ITS | Data Portability ---
Author Organization [place] [facility] [place] [facility], Main Office Address [address] [place] [address] Care Team Providers Care Bodywork Therapist Name Role Phone MARIA LUISA RENDON Primary Care Provider [phone] MARIA LUISA RENDON Referring Provider Assessment No assessment recorded. Plan of Treatment Reminders Order Date Submit Date Provider Last Modified By Organization Details Last Modified Time Details Appointments None recorded. Lab HbA1c (hemoglobin A1c), blood 2024 025 [email or web address] [facility] [place], [address], 5 09:39:38 lipid panel, serum 2024 025 [email or web address] [facility] [place], [address], 5 09:39:38 CMP, serum or plasma 2024 025 VIVIAN [facility] [place], [address], 5 09:55:55 CBC w/ auto diff 2024 025 [email or web address] [facility] [place], [address], 5 09:39:38 CBC w/ auto diff 2024 025 VIVIAN [facility] [place], [address], 5 03:15:17 CBC w/ auto diff 2024 025 [facility], Carmen Kelly, [place], [address], 5 05:15:32 lipid panel, serum 2024 025 [facility], [address], [place], [address], 5 05:15:29 CMP, serum or plasma 2024 025 [facility], Carmen Kelly, [place], [address], 5 05:15:31 TSH, serum or plasma 2024 025 [facility], [place], [address], 5 05:15:34 T4, free, serum 2024 025 [facility], [address] [place], [address], 5 05:15:33 lipid panel, serum 2024 025 [email or web address] [facility], [address] [place], [address], 5 17:38:18 CMP, serum or plasma 2024 025 [email or web address], [place], [address], 5 17:38:18 CBC w/ auto diff 2024 025 [email or web address], [place], [address], 5 17:38:18 HbA1c (hemoglobin A1c), blood 2024 025 [email or web address], [address], [place], [address], 5 17:38:18 lipid panel, serum 2023 024 [email or web address] [facility], [address], [place], [address], 4 16:30:37 CMP, serum or plasma 2023 024 [email or web address], [address], [place], [address], 4 16:30:37 HbA1c (hemoglobin A1c), blood 2023 024 [email or web address], [address], [place], [address], 4 16:30:37 Referral None recorded. Procedures None recorded. Surgeries None recorded. Imaging None recorded. Medication Orders furosemide 20 mg tablet 2024 025 [email or web address] [id number], [address] [place], [place], [id number], 5 15:44:29 Feosol 325 mg (65 mg iron) tablet 2024 025 VIVIAN [id number], [address] [place], [place], [id number], 5 15:48:33 Patient TargetsNo targets recorded. Patient Instructions Encounter Date Encounter Id Patient Instructions Last Modified By Organization Details Last Modified Time 11/21/2023 [id number] dementia rating scale-2* [email or web address] Not available 11/21/2023 16:34:38 alcohol misuse* [email or web address] Not available 11/21/2023 16:34:38 depression screening* [email or web address] Not available 11/21/2023 16:34:38 Timed Up and Go test (TUG)* [email or web address] Not available 11/21/2023 16:34:38 multi-dimensiona l health assessment questionnaire* [email or web address] Not available 11/21/2023 16:34:38 Personalized [facility] Plan and Screening Recommendations Advance Directives - Do you have one? Yes Advance Directives - Do we have your advance directive on file in your health record? No, please bring in a copy at your earliest convenience Primary Prevention/Intervent ion (prevents or decreases the chance of common diseases from occurring) Smoking Risk: Non Smoker Alcohol Misuse Screening: Negative Weight: Overweight try to lose 10% of your body weight Physical activity: Need more exercise/physical activity Nutrition: Average Eat heart healthy diet Fall Risk (screened today): Intermediate Recommend regular use of cane or walker Vaccines Pneumococcal: No further needed Influenza: Your next one in the fall of this year Chronic Disease Risks Stroke: Intermediate Risk Active diagnosis, Continue current treatment plan Heart Attack: Intermediate Risk Active diagnosis, Continue current treatment plan Clogging of the Arteries: Intermediate Risk Active diagnosis, Continue current treatment plan Diabetes: Intermediate Risk Active diagnosis, Continue current treatment plan Secondary Prevention/Intervent ion (detects treatable diseases before they may cause symptoms, disability, or ) Breast Cancer Screening with mammogram: No screening necessary Cervical/Uterine/Ova cathi Cancer Screening: No screening necessary Osteoporosis Screening: No screening necessary Date Screening Last Performed: Colon Cancer Screening: Colonoscopy Date Screening Last Performed: Eye Disease Screening: Recommended today, but you have declined Dementia Risk: Low I have no recommendations Depression Screening: Negative Active diagnosis, Continue current treatment plan [email or web address] Not available 11/21/2023 16:17:45 Follow-up hypertension, hyperlipidemia, [...] recognize, using context, where substitutions have occurred. [email or web address] Not available 11/21/2023 16:34:25 04/23/2024 [id number] Follow-up chroni c obstructive lung disease, essential [...] Maria Luisa Rendon M.D. 04.23.2024 02:35 PM [email or web address] Not available 04/23/2024 15:35:27 06/04/2024 [id number] complete blood c ount (CBC): about this test [email or web address] Not available 06/04/2024 15:45:30 06/11/2024 [id number] Gastrointestinal hemorrhage, hypertension, chronic obstructive lung disease [...] iron supplementation Keep Appointment: Sat 02:30 PM [place] Portions of record are template driven. When necessary additional context will be provided. Additionally some portions have been created with voice recognition software. Occasional wrong-word or s ound-a-like substitutions may have occurred due to the inherent limitations of voice recognition software. Read the chart carefully and recognize, using context, where substitutions may have occurred. Created: Maria Luisa Rendon M.D. 06.11.2024 02:48 PM [email or web address] Not available 06/11/2024 15:48:23 08/26/2024 [id number] Follow-up obstructive lung disease, essential hypertension, hyperlipidemia, [...] Maria Luisa Rendon M.D. 08.26.2024 02:44 PM [email or web address] Not available 08/26/2024 15:44:43 Reason for Referral None Reported. Results Created Date Observation Date Name Description Value Unit Range Abnormal Flag Note LastModifiedBy Organization Detail LastModifiedTime 01/16/2001/17/2024 LIPID PANEL , STAND ERICA cholesterol, total 137 mg/dL <200 normal Not Available [email or web address] [address], [address], 01/17/2024 03:11:49 01/16/2001/17/2024 LIPID PANEL , STAND ERICA HDL cholesterol 57 mg/dL > or = 50 normal Not Available [email or web address] [address] [place], [address], 01/17/2024 03:11:49 01/16/2001/17/2024 LIPID PANEL , STAND ERICA triglyceride s 115 mg/dL <150 normal Not Available [email or web address] [address] [place], [address], 01/17/2024 03:11:49 01/16/20 24 01/17/2024 LIPID PANEL [...] 310(1 9): 2061- 2068 (http ://ed ucati on.[employer]. com/f aq/FA Q164) Not Available [facility] [address] [place], [address], 01/17/2024 03:11:49 01/16/20 24 01/17/2024 LIPID PANEL , STAND ERICA chol/HDLC ratio 2.4 (calc ) <5.0 normal Not Available [facility] [address] [address] [place], [address], 01/17/2024 03:11:49 01/16/20 24 01/17/2024 LIPID PANEL , STAND ERICA non HDL cholesterol 80 mg/dL _(fernie c) <130 normal For patie nts with diabe demetrius plus 1 major ASCVD risk facto r, treat ing to a non-H DL-C goal of <100 mg/dL (LDL- C of <70 mg/dL ) is consi dered a thera peuti c optio n. Not Available [facility] [id number] [place] [address], [address], 01/17/2024 03:11:49 01/16/20 24 01/17/2024 COMPR EHENS YANNA METAB OLIC PANEL , PLASM A glucose 172 mg/dL 65-99 high Fasti ng refer ence inter dk For someo ne witho ut known diabe demetrius, a gluco se value >125 mg/dL indic ates that they may have diabe demetrius and this shoul d be confi rmed with a follo w-up test. Not Available [place] [address] [address] [place], [address], 01/17/2024 03:11:50 01/16/20 24 01/17/2024 COMPR EHENS YANNA METAB OLIC PANEL , PLASM A urea nitrogen (BUN) 13 mg/dL 7-25 normal Not Available [address], [address], 01/17/2024 03:11:50 01/16/20 24 01/17/2024 COMPR EHENS YANNA METAB OLIC PANEL , PLASM A creatinine 0.79 mg/dL 0.60-0 .95 normal Not Available [address], [address], 01/17/2024 03:11:50 01/16/20 24 01/17/2024 COMPR EHENS YANNA METAB OLIC PANEL , PLASM A eGFR 75 mL/mi n/1.7 3m2 > or = 60 normal Not Available [address], [address], 01/17/2024 03:11:50 01/16/20 24 01/17/2024 COMPR EHENS YANNA METAB OLIC PANEL , PLASM A BUN/creatini ne ratio SEE NOTE: (calc ) 6-22 Not Repor lynne: BUN and Creat inine are withi n refer ence range . Not Available [facility] [address] [address] [place], [address], 01/17/2024 03:11:50 01/16/20 24 01/17/2024 COMPR EHENS YANNA METAB OLIC PANEL , PLASM A sodium 136 mmol/ L 135-14 6 normal Not Available [address] [address] [place], [address], 01/17/2024 03:11:50 01/16/20 24 01/17/2024 COMPR EHENS YANNA METAB OLIC PANEL , PLASM A potassium 3.8 mmol/ L 3.4-4. 8 normal Not Available [address], [address], 01/17/2024 03:11:50 01/16/20 24 01/17/2024 COMPR EHENS YANNA METAB OLIC PANEL , PLASM A chloride 101 mmol/ L 98-110 normal Not Available [address], [address], 01/17/2024 03:11:50 01/16/2001/17/2024 COMPR EHENS YANNA METAB OLIC PANEL , PLASM A carbon dioxide 25 mmol/ L 20-32 normal Not Available [address], [address], 01/17/2024 03:11:50 01/16/20 24 01/17/2024 COMPR EHENS YANNA METAB OLIC PANEL , PLASM A calcium 9.8 mg/dL 8.6-10 .4 normal Not Available [address], [address], 01/17/2024 03:11:50 01/16/20 24 01/17/2024 COMPR EHENS YANNA METAB OLIC PANEL , PLASM A protein, total 7.1 g/dL 6.4-8. 4 normal Not Available [address], [address], 01/17/2024 03:11:50 01/16/2001/17/2024 COMPR EHENS YANNA METAB OLIC PANEL , PLASM A albumin 4.3 g/dL 3.6-5. 1 normal Not Available [address], [address], 01/17/2024 03:11:50 01/16/20 24 01/17/2024 COMPR EHENS YANNA METAB OLIC PANEL , PLASM A globulin 2.8 g/dL_ (calc ) 2.2-4. 0 normal Not Available [address], [address], 01/17/2024 03:11:50 01/16/20 24 01/17/2024 COMPR EHENS YANNA METAB OLIC PANEL , PLASM A albumin/glob ulin ratio 1.5 (calc ) 0.9-2. 3 normal Not Available [address], [address], 01/17/2024 03:11:50 01/16/20 24 01/17/2024 COMPR EHENS YANNA METAB OLIC PANEL , PLASM A bilirubin, total 0.5 mg/dL 0.2-1. 2 normal Not Available [address], [address], 01/17/2024 03:11:50 01/16/20 24 01/17/2024 COMPR EHENS YANNA METAB OLIC PANEL , PLASM A alkaline phosphatase 75 U/L 37-153 normal Not Available [address], [address], 01/17/2024 03:11:50 01/16/20 24 01/17/2024 COMPR EHENS YANNA METAB OLIC PANEL , PLASM A AST 12 U/L 10-35 normal Not Available [address], [address], 01/17/2024 03:11:50 01/16/20 24 01/17/2024 COMPR EHENS YANNA METAB OLIC PANEL , PLASM A ALT 9 U/L 6-29 normal Not Available [address], [address], 01/17/2024 03:11:50 01/16/20 24 01/17/2024 HEMOG LOBIN [...] diabe demetrius for child margarita. Not Available [facility] [address] [address] [place], [address], 01/17/2024 03:11:51 06/04/1906/05/2024 LIPID PANEL , STAND ERICA cholesterol, total 113 mg/dL <200 normal Not Available [facility] [address] [address] [place], [address], 06/05/2024 05:15:29 06/04/1906/05/2024 LIPID PANEL , STAND ERICA HDL cholesterol 50 mg/dL > or = 50 normal Not Available [facility] [place] [address] [address] [place], [address], 06/05/2024 05:15:29 06/04/1906/05/2024 LIPID PANEL , STAND ERICA triglyceride s 102 mg/dL <150 normal Not Available [facility] [address] [address] [place], [address], 06/05/2024 05:15:29 06/04/1906/05/2024 LIPID PANEL , STAND ERICA LDL-choleste rol 44 mg/dL _(fernie c) normal Refer ence range : <100 Mary able range <100 mg/dL for prima ry preve ntion ; <70 mg/dL for patie nts with CHD or diabe tic patie nts with > or = 2 CHD risk facto rs. LDL-C is now calcu lated using the [facility] kins gregg bush, which is a valid ated novel stevie hinton than the Fried olga rangel ion in the estim ation of LDL-C . Dee Dee bush SS et al. ELENA. 2013; 310(1 9): 2061- 2068 (http ://ed ucati on.Qu estDi [employer]. com/f aq/FA Q164) Not Available [address] [address] [place], [address], 06/05/2024 05:15:29 06/04/1906/05/2024 LIPID PANEL , STAND ERICA chol/HDLC ratio 2.3 (calc ) <5.0 normal Not Available [address], [address], 06/05/2024 05:15:29 06/04/1906/05/2024 LIPID PANEL , STAND ERICA non HDL cholesterol 63 mg/dL _(fernie c) <130 normal For patie nts with diabe demetrius plus 1 major ASCVD risk facto r, treat ing to a non-H DL-C goal of <100 mg/dL (LDL- C of <70 mg/dL ) is consi yany godinez optio n. Not Available [address] [address] [place], [address], 06/05/2024 05:15:29 06/04/1906/05/2024 COMPR EHENS YANNA METAB OLIC PANEL , PLASM A glucose 165 mg/dL 65-139 high Non-f astin g refer ence inter dk Not Available [facility] [address] [address] [place], [address], 06/05/2024 05:15:31 06/04/1906/05/2024 COMPR EHENS YANNA METAB OLIC PANEL , PLASM A urea nitrogen (BUN) 14 mg/dL 7-25 normal Not Available [address] [place], [address], 06/05/2024 05:15:31 06/04/19 25 06/05/2024 COMPR EHENS YANNA METAB OLIC PANEL , PLASM A creatinine 0.67 mg/dL 0.60-0 .95 normal Not Available [address], [address], 06/05/2024 05:15:31 06/04/19 25 06/05/2024 COMPR EHENS YANNA METAB OLIC PANEL , PLASM A eGFR 87 mL/mi n/1.7 3m2 > or = 60 normal Not Available [address], [address], 06/05/2024 05:15:31 06/04/1906/05/2024 COMPR EHENS YANNA METAB OLIC PANEL , PLASM A BUN/creatini ne ratio SEE NOTE: (calc ) 6-22 Not Repor lynne: BUN and Creat inine are withi n refer ence range . Not Available [address], [address], 06/05/2024 05:15:31 06/04/19 25 06/05/2024 COMPR EHENS YANNA METAB OLIC PANEL , PLASM A sodium 138 mmol/ L 135-14 6 normal Not Available [address], [address], 06/05/2024 05:15:31 06/04/19 25 06/05/2024 COMPR EHENS YANNA METAB OLIC PANEL , PLASM A potassium 3.9 mmol/ L 3.4-4. 8 normal Not Available [address], [address], 06/05/2024 05:15:31 06/04/19 25 06/05/2024 COMPR EHENS YANNA METAB OLIC PANEL , PLASM A chloride 104 mmol/ L 98-110 normal Not Available [facility] [address] [address], [place], [address], 06/05/2024 05:15:31 06/04/19 25 06/05/2024 COMPR EHENS YANNA METAB OLIC PANEL , PLASM A carbon dioxide 27 mmol/ L 20-32 normal Not Available [address], [address], 06/05/2024 05:15:31 06/04/19 25 06/05/2024 COMPR EHENS YANNA METAB OLIC PANEL , PLASM A calcium 9.8 mg/dL 8.6-10 .4 normal Not Available [address], [address], 06/05/2024 05:15:31 06/04/19 25 06/05/2024 COMPR EHENS YANNA METAB OLIC PANEL , PLASM A protein, total 6.5 g/dL 6.4-8. 4 normal Not Available [address], [address], 06/05/2024 05:15:31 06/04/19 25 06/05/2024 COMPR EHENS YANNA METAB OLIC PANEL , PLASM A albumin 4.1 g/dL 3.6-5. 1 normal Not Available [address], [address], 06/05/2024 05:15:31 06/04/19 25 06/05/2024 COMPR EHENS YANNA METAB OLIC PANEL , PLASM A globulin 2.4 g/dL_ (calc ) 2.2-4. 0 normal Not Available [address], [address], 06/05/2024 05:15:31 06/04/19 25 06/05/2024 COMPR EHENS YANNA METAB OLIC PANEL , PLASM A albumin/glob ulin ratio 1.7 (calc ) 0.9-2. 3 normal Not Available [address], [place], [address], 06/05/2024 05:15:31 06/04/1906/05/2024 COMPR EHENS YANNA METAB OLIC PANEL , PLASM A bilirubin, total 0.3 mg/dL 0.2-1. 2 normal Not Available [address], [address], 06/05/2024 05:15:31 06/04/19 25 06/05/2024 COMPR EHENS YANNA METAB OLIC PANEL , PLASM A alkaline phosphatase 75 U/L 37-153 normal Not Available [facility] [employer] [address], [address], 06/05/2024 05:15:31 06/04/19 25 06/05/2024 COMPR EHENS YANNA METAB OLIC PANEL , PLASM A AST 18 U/L 10-35 normal Not Available [address], [address], 06/05/2024 05:15:31 06/04/1906/05/2024 COMPR EHENS YANNA METAB OLIC PANEL , PLASM A ALT 17 U/L 6-29 normal Not Available [address], [address], 06/05/2024 05:15:31 06/04/19 25 06/05/2024 CBC (INCL UDES DIFF/ PLT) white blood cell count 5.3 thous and/u L 3.8-10 .8 normal Not Available [address], [address], 06/05/2024 05:15:32 06/04/19 25 06/05/2024 CBC (INCL UDES DIFF/ PLT) red blood cell count 3.39 erasmo on/uL 3.80-5 .10 low Not Available [address], [address], 06/05/2024 05:15:32 06/04/19 25 06/05/2024 CBC (INCL UDES DIFF/ PLT) hemoglobin 7.6 g/dL 11.7-1 5.5 low Not Available [facility] [address], [address], 06/05/2024 05:15:32 06/04/1906/05/2024 CBC (INCL UDES DIFF/ PLT) hematocrit 26.7 % 35.0-4 5.0 low Not Available [facility] [address], [address], 06/05/2024 05:15:32 06/04/1906/05/2024 CBC (INCL UDES DIFF/ PLT) MCV 78.8 fL 80.0-1 00.0 low Not Available [address], [address], 06/05/2024 05:15:32 06/04/1906/05/2024 CBC (INCL UDES DIFF/ PLT) MCH 22.4 pg 27.0-3 3.0 low Not Available [address], [address], 06/05/2024 05:15:32 06/04/1906/05/2024 CBC (INCL UDES DIFF/ PLT) MCHC 28.5 g/dL 32.0-3 6.0 low For adult s, a sligh t decre ase in the calcu lated MCHC value (in the range of 30 to 32 g/dL) is most likel y not clini ziggy signi nhi t; tony er, it shoul d be inter prete d with cauti [facility] with other red cell joy eters and the patie nt's clini fernie condi tion. Not Available [facility] [address], [address], 06/05/2024 05:15:32 06/04/1906/05/2024 CBC (INCL UDES DIFF/ PLT) RDW 19.8 % 11.0-1 5.0 high Not Available [address], [address], 06/05/2024 05:15:32 06/04/19 25 06/05/2024 CBC (INCL UDES DIFF/ PLT) platelet count 148 thous and/u L 140-40 0 normal Not Available [address], [address], 06/05/2024 05:15:32 06/04/1906/05/2024 CBC (INCL UDES DIFF/ PLT) MPV fL 7.5-12 .5 Due to plate let or RBC varia bilit y in size or shape the resul t canno t be repor lynne accur ately . Not Available [address], [address], 06/05/2024 05:15:32 06/04/19 25 06/05/2024 CBC (INCL UDES DIFF/ PLT) absolute neutrophils 3615 cells /uL 1500-7 800 normal Not Available [address], [address], 06/05/2024 05:15:32 06/04/19 25 06/05/2024 CBC (INCL UDES DIFF/ PLT) absolute lymphocytes 912 cells /uL 850-39 00 normal Not Available [address], [address], 06/05/2024 05:15:32 06/04/19 25 06/05/2024 CBC (INCL UDES DIFF/ PLT) absolute monocytes 684 cells /uL 200-95 0 normal Not Available [address], [address], 06/05/2024 05:15:32 06/04/19 25 06/05/2024 CBC (INCL UDES DIFF/ PLT) absolute eosinophils 58 cells /uL 15-500 normal Not Available [address], [address], 06/05/2024 05:15:32 06/04/19 25 06/05/2024 CBC (INCL UDES DIFF/ PLT) absolute basophils 32 cells /uL 0-200 normal Not Available [address], [address], 06/05/2024 05:15:32 06/04/19 25 06/05/2024 CBC (INCL UDES DIFF/ PLT) neutrophils 68.2 % normal Not Available [address], [address], 06/05/2024 05:15:32 06/04/1906/05/2024 CBC (INCL UDES DIFF/ PLT) lymphocytes 17.2 % normal Not Available [address], [address], 06/05/2024 05:15:32 06/04/19 25 06/05/2024 CBC (INCL UDES DIFF/ PLT) monocytes 12.9 % normal Not Available [address], [address], 06/05/2024 05:15:32 06/04/19 25 06/05/2024 CBC (INCL UDES DIFF/ PLT) eosinophils 1.1 % normal Not Available [address], [address], 06/05/2024 05:15:32 06/04/19 25 06/05/2024 CBC (INCL UDES DIFF/ PLT) basophils 0.6 % normal Not Available [address], [address], 06/05/2024 05:15:32 06/04/19 25 06/05/2024 CBC (INCL UDES DIFF/ PLT) comment(s) Revmario w of perip heral smear confi burt autom ated resul ts. Revie w of the perip heral smear revea ls adequ ate numbe rs of plate lets. Not Available [facility] [address] [place], [address], 06/05/2024 05:15:32 06/04/19 25 06/05/2024 T4, FREE T4, free 0.9 NG/dL 0.8-1. 8 normal Not Available [facility] [address] [address] [place], [address], 06/05/2024 05:15:33 06/04/19 25 06/05/2024 TSH TSH 2.36 mIU/L 0.40-4 .50 normal Not Available [facility] [address] [place], [address], 06/05/2024 05:15:34 06/04/19 25 06/05/2024 HEMOG LOBIN [...] diabe demetrius for child margarita. Not Available [facility] [address] [place], [address], 06/05/2024 05:15:35 06/12/19 25 06/12/2024 CBC (INCL UDES DIFF/ PLT) white blood cell count 5.4 thous and/u L 3.8-10 .8 normal Not Available [address], [address], 06/12/2024 03:15:17 06/12/19 25 06/12/2024 CBC (INCL UDES DIFF/ PLT) red blood cell count 3.92 erasmo on/uL 3.80-5 .10 normal Not Available [address], [address], 06/12/2024 03:15:17 06/12/19 25 06/12/2024 CBC (INCL UDES DIFF/ PLT) hemoglobin 9.2 g/dL 11.7-1 5.5 low Not Available [address], [address], 06/12/2024 03:15:17 06/12/1906/12/2024 CBC (INCL UDES DIFF/ PLT) hematocrit 31.8 % 35.0-4 5.0 low Not Available [address], [address], 06/12/2024 03:15:17 06/12/1906/12/2024 CBC (INCL UDES DIFF/ PLT) MCV 81.1 fL 80.0-1 00.0 normal Not Available [address], [address], 06/12/2024 03:15:17 06/12/1906/12/2024 CBC (INCL UDES DIFF/ PLT) MCH 23.5 pg 27.0-3 3.0 low Not Available [address], [address], 06/12/2024 03:15:17 06/12/1906/12/2024 CBC (INCL UDES DIFF/ PLT) MCHC 28.9 g/dL 32.0-3 6.0 low For adult s, a sligh t decre ase in the calcu lated MCHC value (in the range of 30 to 32 g/dL) is most likel y not clini ziggy geraldi nhi t; tony er, it marilee d be inter prete d with cauti on in [facility] n with other red cell joy eters and the patie nt's clini fernie condi tion. Not Available [facility] [address], [address], 06/12/2024 03:15:17 06/12/19 25 06/12/2024 CBC (INCL UDES DIFF/ PLT) RDW 19.5 % 11.0-1 5.0 high Not Available [facility] [address], [address], 06/12/2024 03:15:17 06/12/19 25 06/12/2024 CBC (INCL UDES DIFF/ PLT) platelet count 150 thous and/u L 140-40 0 normal Not Available [facility] [address], [address], 06/12/2024 03:15:17 06/12/19 25 06/12/2024 CBC (INCL UDES DIFF/ PLT) MPV 11.9 fL 7.5-12 .5 normal Not Available [address], [address], 06/12/2024 03:15:17 06/12/19 25 06/12/2024 CBC (INCL UDES DIFF/ PLT) absolute neutrophils 3515 cells /uL 1500-7 800 normal Not Available [facility] [address], [address], 06/12/2024 03:15:17 06/12/19 25 06/12/2024 CBC (INCL UDES DIFF/ PLT) absolute lymphocytes 967 cells /uL 850-39 00 normal Not Available [facility] [address], [address], 06/12/2024 03:15:17 06/12/19 25 06/12/2024 CBC (INCL UDES DIFF/ PLT) absolute monocytes 594 cells /uL 200-95 0 normal Not Available [address], [address], 06/12/2024 03:15:17 06/12/19 25 06/12/2024 CBC (INCL UDES DIFF/ PLT) absolute eosinophils 302 cells /uL 15-500 normal Not Available [facility] [address], [address], 06/12/2024 03:15:17 06/12/19 25 06/12/2024 CBC (INCL UDES DIFF/ PLT) absolute basophils 22 cells /uL 0-200 normal Not Available [address], [address], 06/12/2024 03:15:17 06/12/19 25 06/12/2024 CBC (INCL UDES DIFF/ PLT) neutrophils 65.1 % normal Not Available [address], [address], 06/12/2024 03:15:17 06/12/19 25 06/12/2024 CBC (INCL UDES DIFF/ PLT) lymphocytes 17.9 % normal Not Available [address], [address], 06/12/2024 03:15:17 06/12/19 25 06/12/2024 CBC (INCL UDES DIFF/ PLT) monocytes 11.0 % normal Not Available [facility] [address], [address], 06/12/2024 03:15:17 06/12/19 25 06/12/2024 CBC (INCL UDES DIFF/ PLT) eosinophils 5.6 % normal Not Available [facility] [address], [address], 06/12/2024 03:15:17 03/06/06/12/2024 CBC (INCL UDES DIFF/ PLT) basophils 0.4 % normal Not Available [address], [address], 06/12/2024 03:15:17 06/24/1906/24/2024 CBC (INCL UDES DIFF/ PLT) white blood cell count 9.7 thous and/u L 3.8-10 .8 normal Not Available [address], [address], 06/24/2024 06:57:04 06/24/1906/24/2024 CBC (INCL UDES DIFF/ PLT) red blood cell count 3.97 erasmo on/uL 3.80-5 .10 normal Not Available [address], [address], 06/24/2024 06:57:04 06/24/1906/24/2024 CBC (INCL UDES DIFF/ PLT) hemoglobin 9.3 g/dL 11.7-1 5.5 low Not Available [address], [address], 06/24/2024 06:57:04 06/24/1906/24/2024 CBC (INCL UDES DIFF/ PLT) hematocrit 31.8 % 35.0-4 5.0 low Not Available [address], [address], 06/24/2024 06:57:04 06/24/19 25 06/24/2024 CBC (INCL UDES DIFF/ PLT) MCV 80.1 fL 80.0-1 00.0 normal Not Available [address], [address], 06/24/2024 06:57:04 06/24/19 25 06/24/2024 CBC (INCL UDES DIFF/ PLT) MCH 23.4 pg 27.0-3 3.0 low Not Available [facility] [address], [address], 06/24/2024 06:57:04 06/24/1906/24/2024 CBC (INCL UDES DIFF/ [...] nt's clini fernie condi tion. Not Available [facility] [address], [address], 06/24/2024 06:57:04 06/24/1906/24/2024 CBC (INCL UDES DIFF/ PLT) RDW 19.3 % 11.0-1 5.0 high Not Available [address], [address], 06/24/2024 06:57:04 06/24/1906/24/2024 CBC (INCL UDES DIFF/ PLT) platelet count 163 thous and/u L 140-40 0 normal Not Available [facility] [address], [address], 06/24/2024 06:57:04 06/24/1906/24/2024 CBC (INCL UDES DIFF/ PLT) MPV 10.6 fL 7.5-12 .5 normal Not Available [facility] [address], [address], 06/24/2024 06:57:04 06/24/1906/24/2024 CBC (INCL UDES DIFF/ PLT) absolute neutrophils 8255 cells /uL 1500-7 800 high Not Available [facility] [address], [address], 06/24/2024 06:57:04 06/24/19 25 06/24/2024 CBC (INCL UDES DIFF/ PLT) absolute lymphocytes 766 cells /uL 850-39 00 low Not Available [address], [address], 06/24/2024 06:57:04 06/24/19 25 06/24/2024 CBC (INCL UDES DIFF/ PLT) absolute monocytes 631 cells /uL 200-95 0 normal Not Available [address], [address], 06/24/2024 06:57:04 06/24/1906/24/2024 CBC (INCL UDES DIFF/ PLT) absolute eosinophils 19 cells /uL 15-500 normal Not Available [address], [address], 06/24/2024 06:57:04 06/24/19 25 06/24/2024 CBC (INCL UDES DIFF/ PLT) absolute basophils 29 cells /uL 0-200 normal Not Available [address], [address], 06/24/2024 06:57:04 06/24/1906/24/2024 CBC (INCL UDES DIFF/ PLT) neutrophils 85.1 % normal Not Available [address], [address], 06/24/2024 06:57:04 06/24/1906/24/2024 CBC (INCL UDES DIFF/ PLT) lymphocytes 7.9 % normal Not Available [facility] [address], [address], 06/24/2024 06:57:04 06/24/19 25 06/24/2024 CBC (INCL UDES DIFF/ PLT) monocytes 6.5 % normal Not Available [address], [address], 06/24/2024 06:57:04 06/24/19 25 06/24/2024 CBC (INCL UDES DIFF/ PLT) eosinophils 0.2 % normal Not Available [address], [address], 06/24/2024 06:57:04 06/24/19 25 06/24/2024 CBC (INCL UDES DIFF/ PLT) basophils 0.3 % normal Not Available [facility] [address], [address], 06/24/2024 06:57:04 10/06/19 25 10/07/2024 LIPID PANEL , STAND ERICA cholesterol, total 112 mg/dL <200 normal Not Available [address], [address], 10/07/2024 16:28:32 10/06/19 25 10/07/2024 LIPID PANEL , STAND ERICA HDL cholesterol 44 mg/dL > or = 50 low Not Available [address], [address], 10/07/2024 16:28:32 10/06/19 25 10/07/2024 LIPID PANEL , STAND ERICA triglyceride s 99 mg/dL <150 normal Not Available [address], [address], 10/07/2024 16:28:32 10/06/19 25 10/07/2024 LIPID PANEL , STAND ERICA LDL-choleste rol 50 mg/dL _(fernie c) normal Refer ence range [...] valid ated novel metho d provi klaudia quintanilla r accur acy than the Fried olga equat ion in the estim ation of LDL-C . Dee Dee n SS et al. ELENA. 2013; 310(0 5): 2061- 2068 (http ://ed ucati on.Vastari Shayla Flogs.com. com/f aq/FA Q164) Not Available [address] [address] [place], [address], 10/07/2024 16:28:32 10/06/1910/07/2024 LIPID PANEL , STAND ERICA chol/HDLC ratio 2.5 (calc ) <5.0 normal Not Available [facility] [address], [address], 10/07/2024 16:28:32 10/06/1910/07/2024 LIPID PANEL , STAND ERICA non HDL cholesterol 68 mg/dL _(fernie c) <130 normal For patie nts with diabe demetrius plus 1 major ASCVD risk facto r, treat ing to a non-H DL-C goal of <100 mg/dL (LDL- C of <70 mg/dL ) is consi omidd a candido godinez optio n. Not Available [address], [address], 10/07/2024 16:28:32 10/06/19 25 10/07/2024 COMPR EHENS YANNA METAB OLIC PANEL , PLASM A glucose 89 mg/dL 65-99 normal Fasti ng refer ence inter dk Not Available [facility] [address] [address] [place], [address], 10/07/2024 16:28:33 10/06/19 25 10/07/2024 COMPR EHENS YANNA METAB OLIC PANEL , PLASM A urea nitrogen (BUN) 17 mg/dL 7-25 normal Not Available [facility] [address], [address], 10/07/2024 16:28:33 10/06/19 25 10/07/2024 COMPR EHENS YANNA METAB OLIC PANEL , PLASM A creatinine 0.79 mg/dL 0.60-0 .95 normal Not Available [address], [address], 10/07/2024 16:28:33 10/06/19 25 10/07/2024 COMPR EHENS YANNA METAB OLIC PANEL , PLASM A eGFR 74 mL/mi n/1.7 3m2 > or = 60 normal Not Available [address], [address], 10/07/2024 16:28:33 10/06/19 25 10/07/2024 COMPR EHENS YANNA METAB OLIC PANEL , PLASM A BUN/creatini ne ratio SEE NOTE: (calc ) 6-22 Not Repor lynne: BUN and Creat inine are withi n refer ence range . Not Available [address], [address], 10/07/2024 16:28:33 10/06/19 25 10/07/2024 COMPR EHENS YANNA METAB OLIC PANEL , PLASM A sodium 142 mmol/ L 135-14 6 normal Not Available [address], [address], 10/07/2024 16:28:33 10/06/19 25 10/07/2024 COMPR EHENS YANNA METAB OLIC PANEL , PLASM A potassium 3.5 mmol/ L 3.4-4. 8 normal Not Available [address], [address], 10/07/2024 16:28:33 10/06/19 25 10/07/2024 COMPR EHENS YANNA METAB OLIC PANEL , PLASM A chloride 101 mmol/ L 98-110 normal Not Available [address], [address], 10/07/2024 16:28:33 10/06/19 25 10/07/2024 COMPR EHENS YANNA METAB OLIC PANEL , PLASM A carbon dioxide 30 mmol/ L 20-32 normal Not Available [facility] [address], [address], 10/07/2024 16:28:33 10/06/19 25 10/07/2024 COMPR EHENS YANNA METAB OLIC PANEL , PLASM A calcium 10.8 mg/dL 8.6-10 .4 high Not Available [address], [address], 10/07/2024 16:28:33 10/06/19 25 10/07/2024 COMPR EHENS YANNA METAB OLIC PANEL , PLASM A protein, total 6.7 g/dL 6.4-8. 4 normal Not Available [address], [address], 10/07/2024 16:28:33 10/06/19 25 10/07/2024 COMPR EHENS YANNA METAB OLIC PANEL , PLASM A albumin 4.1 g/dL 3.6-5. 1 normal Not Available [facility] [address], [address], 10/07/2024 16:28:33 10/06/19 25 10/07/2024 COMPR EHENS YANNA METAB OLIC PANEL , PLASM A globulin 2.6 g/dL_ (calc ) 2.2-4. 0 normal Not Available [facility] [address], [address], 10/07/2024 16:28:33 10/06/19 25 10/07/2024 COMPR EHENS YANNA METAB OLIC PANEL , PLASM A albumin/glob ulin ratio 1.6 (calc ) 0.9-2. 3 normal Not Available [facility] [address], [address], 10/07/2024 16:28:33 10/06/19 25 10/07/2024 COMPR EHENS YANNA METAB OLIC PANEL , PLASM A bilirubin, total 0.4 mg/dL 0.2-1. 2 normal Not Available [address], [address], 10/07/2024 16:28:33 10/06/19 25 10/07/2024 COMPR EHENS YANNA METAB OLIC PANEL , PLASM A alkaline phosphatase 65 U/L 37-153 normal Not Available [address], [address], 10/07/2024 16:28:33 10/06/19 25 10/07/2024 COMPR EHENS YANNA METAB OLIC PANEL , PLASM A AST 22 U/L 10-35 normal Not Available [address], [address], 10/07/2024 16:28:33 10/06/19 25 10/07/2024 COMPR EHENS YANNA METAB OLIC PANEL , PLASM A ALT 19 U/L 6-29 normal Not Available [address], [address], 10/07/2024 16:28:33 10/06/19 25 10/07/2024 CBC (INCL UDES DIFF/ PLT) white blood cell count 4.2 thous and/u L 3.8-10 .8 normal Not Available [address], [address], 10/07/2024 16:28:34 10/06/19 25 10/07/2024 CBC (INCL UDES DIFF/ PLT) red blood cell count 3.99 erasmo on/uL 3.80-5 .10 normal Not Available [address], [address], 10/07/2024 16:28:34 10/06/19 25 10/07/2024 CBC (INCL UDES DIFF/ PLT) hemoglobin 11.7 g/dL 11.7-1 5.5 normal Not Available [address], [address], 10/07/2024 16:28:34 10/06/1910/07/2024 CBC (INCL UDES DIFF/ PLT) hematocrit 37.5 % 35.0-4 5.0 normal Not Available [address], [address], 10/07/2024 16:28:34 10/06/1910/07/2024 CBC (INCL UDES DIFF/ PLT) MCV 94.0 fL 80.0-1 00.0 normal Not Available [facility] [address], [address], 10/07/2024 16:28:34 10/06/1910/07/2024 CBC (INCL UDES DIFF/ PLT) MCH 29.3 pg 27.0-3 3.0 normal Not Available [address], [address], 10/07/2024 16:28:34 10/06/1910/07/2024 CBC (INCL UDES DIFF/ PLT) MCHC 31.2 g/dL 32.0-3 6.0 low For adult s, a sligh t decre ase in the calcu lated MCHC value (in the range of 30 to 32 g/dL) is most likel y not clini ziggy signi ficleif t; tony er, it shoul d be inter prete d with cauti on in [facility] n with other red cell joy eters and the patie nt's clini fernie condi tion. Not Available [facility] [address], [address], 10/07/2024 16:28:34 10/06/1910/07/2024 CBC (INCL UDES DIFF/ PLT) RDW 18.5 % 11.0-1 5.0 high Not Available [facility] [address], [address], 10/07/2024 16:28:34 10/06/1910/07/2024 CBC (INCL UDES DIFF/ PLT) platelet count 98 thous and/u L 140-40 0 low Not Available [address], [address], 10/07/2024 16:28:34 10/06/19 25 10/07/2024 CBC (INCL UDES DIFF/ PLT) MPV 11.1 fL 7.5-12 .5 normal Not Available [address], [address], 10/07/2024 16:28:34 10/06/19 25 10/07/2024 CBC (INCL UDES DIFF/ PLT) absolute neutrophils 2650 cells /uL 1500-7 800 normal Not Available [address], [address], 10/07/2024 16:28:34 10/06/19 25 10/07/2024 CBC (INCL UDES DIFF/ PLT) absolute lymphocytes 874 cells /uL 850-39 00 normal Not Available [address], [address], 10/07/2024 16:28:34 10/06/19 25 10/07/2024 CBC (INCL UDES DIFF/ PLT) absolute monocytes 508 cells /uL 200-95 0 normal Not Available [address], [address], 10/07/2024 16:28:34 10/06/1910/07/2024 CBC (INCL UDES DIFF/ PLT) absolute eosinophils 147 cells /uL 15-500 normal Not Available [address], [address], 10/07/2024 16:28:34 10/06/19 25 10/07/2024 CBC (INCL UDES DIFF/ PLT) absolute basophils 21 cells /uL 0-200 normal Not Available [address], [address], 10/07/2024 16:28:34 10/06/19 25 10/07/2024 CBC (INCL UDES DIFF/ PLT) neutrophils 63.1 % normal Not Available [facility] [address], [address], 10/07/2024 16:28:34 10/06/19 25 10/07/2024 CBC (INCL UDES DIFF/ PLT) lymphocytes 20.8 % normal Not Available [facility] [address], [address], 10/07/2024 16:28:34 10/06/19 25 10/07/2024 CBC (INCL UDES DIFF/ PLT) monocytes 12.1 % normal Not Available [facility] [address], [address], 10/07/2024 16:28:34 10/06/19 25 10/07/2024 CBC (INCL UDES DIFF/ PLT) eosinophils 3.5 % normal Not Available [facility] [address], [address], 10/07/2024 16:28:34 10/06/19 25 10/07/2024 CBC (INCL UDES DIFF/ PLT) basophils 0.5 % normal Not Available [address], [address], 10/07/2024 16:28:34 10/06/19 25 10/07/2024 HEMOG LOBIN A1C hemoglobin A1C 6.4 %_of_ total _HGB <5.7 high For someo ne witho ut known diabe demetrius, a hemog lobin A1c value betwe en 5.7% and 6.4% is consi stent with predi abete s and shoul d be confi rmed with a follo w-up test. For someo ne with known diabe demetrius, a value <7% indic ates that their diabe demetrius is well contr olled . A1c targe ts shoul d be indiv idual ized based on durat ion of diabe demetrius, age, comor bid condi tions , and other consi derat ions. This assay resul t is consi stent with an incre ased risk of diabe demetrius. Curre ntly, no conse nsus exist s regar ding use of hemog lobin A1c for diagn osis of diabe demetrius for child margarita. Not Available [facility] [address] , [place], [address], 10/07/2024 16:28:35 04/27/19 25 04/27/2024 MAMMO , scree diane, digit al, bilat eral No observ ation record ed. [address], [address], 04/27/2024 17:43:35 04/29/19 25 04/27/2024 bone densi ty No observ ation record ed. [address] [address], [place], [address], 04/29/2024 09:54:44 06/05/19 25 06/05/2024 XR, chest No observ ation record ed. [address] [address], [place], [address], 06/06/2024 08:33:45 07/02/19 25 06/30/2024 CT, chest + abdom en + pelvi s, w/o contr ast No observ ation record ed. [address] [address], [place], [address], 07/07/2024 13:58:46 07/14/19 capsu le endos copy (PROC ) No observ ation record ed. [place] [id number] Not Available 2024 21:58:10 Result Notes None recorded. Problems Name Problem SNOMED Code Status Onset Date Resolution Date Notes Provider Name and Address Organization Details Recorded Time Renewal of prescripti on Active 2021 Not Available [facility] 3 12:45:37 Chronic obstructiv e pulmonary disease 61399336 Active 2020 Not Available [facility] 3 12:45:37 Senile osteoporos is 91976841 Active 2021 Not Available [facility] 3 12:45:37 Pure hyperchole sterolemia 661001054 Active 2020 Not Available [facility] 3 12:45:37 Low back pain 464078683 Active 2021 Not Available [facility] 3 12:45:37 Recurrent dislocatio n of shoulder region 94233027 Active Not Available [facility] 3 12:45:37 Enthesopat hy of hip region 53540745 Active Not Available [facility] 3 12:45:37 Vitamin D deficiency 75594896 Active 2021 Not Available [facility] 3 12:45:38 Disorder of rotator cuff 107320078 Active Not Available [facility] 3 12:45:38 History of polyp of colon 383677248 Active 2020 Not Available [facility] 3 12:45:38 Disorder of bursa of shoulder region 59415058 Active Not Available [facility] 3 12:45:38 Essential hypertensi on 05105089 Active 2020 Not Available [facility] 3 12:45:38 Pulmonary hypertensi on 66529798 Active 2021 Not Available [facility] 3 12:45:38 Chronic back pain 910877121 Active 2022 Violette Dawn CMA null, [place] [facility] 3 14:39:22 Obese class I 6288085927346 07 Active 2022 Maria Luisa Rendon MD [address] [place] [address], [address] , [place] [facility] 3 15:47:21 Depressive disorder 46357634 Active 2023 Violette Dawn CMA null, [place] [facility] 4 17:35:48 Trigger finger of right hand 3068678824679 9101 Active 2024 Fariba Valdez null, [place] [facility] 5 15:49:08 Abdominal pain 45360255 Active 2024 Maria Luisa Rendon MD [address], [address], [place], [address] , [place] [facility] 5 15:37:51 Gastrointe stinal hemorrhage 31987790 Active 2024 Maria Luisa Rendon MD [address], [address], [place], [address] , [place] [facility] 5 15:38:18 Anemia 099918676 Active 2024 Violette Dawn CMA null, [place] [facility] 5 14:17:58 Nausea and vomiting 98548068 Active 2024 Maria Luisa Rendon MD [address], [address], [place], [address] , [place] [facility] 5 11:49:31 Abnormal weight loss 869373648 Active 2024 Violette Dawn CMA null, [place] [facility] 5 15:05:53 Diverticul itis of colon 647711890 Active 2024 Maria Luisa Rendon MD [address], [address], [place], [address] , [place] [facility] 5 17:41:19 Type 2 diabetes mellitus 46173799 Active 2024 Maria Luisa Rendon MD [address], [address], [place], [address] , [place] [facility] 5 15:34:25 Diverticul itis 097578596 Active 2024 Maria Luisa Rendon MD [address], [address], [place], [address] , [place] [facility] 5 15:35:38 Edema of lower extremity 625672943 Active 2024 Maria Luisa Rendon MD [address], [address], [place], [address] , [facility] [employer] 5 15:43:13 Problem Notes None recorded. Procedures Surgical History Date Name Laterality Status Provider Name and Address Organization Details Recorded Time 11/21/19 24 Medicare Wellness CPT Code, subsequent completed Candelaria Pino RN [facility] [employer] 11/21/2023 16:10:12 09/30/19 22 Most Recent Bone Density completed Not Available [facility] 06/06/2022 12:45:05 04/12/19 22 Date of Last Colonoscopy completed Not Available [facility] 06/06/2022 12:45:05 Imaging Results None recorded. Procedure Notes None recorded. Medical Equipment None Reported. Allergies Allergen ID Allergen Name Allergen Category Reaction Reaction Severity Criticality Documentation Date Start Date Code Code System Note Provider Name and Address Organization Details Recorded Time 47963 Iodinated contrast media (substanc e) medicatio n Not available Not available Not available 06/06/2022 82302 2004 SNOMED Not Available [facility] 3 12:47:59 Medications Name Sig Start [...] completed Not Available Not Available Not Available [employer] Ultra Test strips USE TO TEST BLOOD [...] TAKE 1 TABLET BY MOUTH TWICE DAILY 09/07 completed Not Available Not Available Not Available aspirin 81 mg chewable tablet Chew 1 tablet every day by oral route. 2012 active Not Available Not Available Not Avai lable furosemide 20 mg tablet TAKE 1 TABLET BY MOUTH EVERY DAY NEEDED FOR SWELLING 2024 active Not Available Not Available Not [...] Available Not Available Fish Oil 07/04 completed 20794 mg once a day Not Available Not [...] 100 unit/mL (3 mL) subcutaneo us pen Inject 14 units every day by subcutan eous route at bedtime for 90 days. 2024 active Not Available Not Available Not Avebony lable lancets 28 gauge use to test blood [...] Available No t Available FreeStyle Grace 2 [place] use as directed for checking blood sugars active Not Available Not Available No t Available Vitals Date Recorded Body height Body mass index (BMI) Body weight Heart rate Body temperature Oxygen saturation Oxygen saturation in Arterial blood by Pulse oximetry Systolic And Diastolic Provider Name and Address Organization Details Last Updated DateTime 5 149.86 cm 30.3 kg/m2 85653.8 6 g 69 /min 97 [degF] 96 % 96 % 118/60 mm[Hg] Susie Gomez [place] [employer] 5 15:23:00 Date Recorded Body height Body mass index (BMI) Body weight Heart rate Body temperature Oxygen saturation Oxygen saturation in Arterial blood by Pulse oximetry Systolic And Diastolic Provider Name and Address Organization Details Last Updated DateTime 5 149.86 cm 29.7 kg/m2 21308.0 8 g 77 /min 98.2 [degF] 95 % 95 % 122/68 mm[Hg] [email or web address] [employer] [facility] [employer] 5 15:15:25 Date Recorded Body height Body mass index (BMI) Body weight Heart rate Body temperature Oxygen saturation Oxygen saturation in Arterial blood by Pulse oximetry Systolic And Diastolic Provider Name and Address Organization Details Last Updated DateTime 5 149.86 cm 29.1 kg/m2 60861.3 g 97 /min 97 [degF] 94 % 94 % 142/70 mm[Hg] Susie [email or web address] [employer] [facility] [employer] 5 15:22:16 Date Recorded Body height Body mass index (BMI) Body weight Heart rate Body temperature Oxygen saturation Oxygen saturation in Arterial blood by Pulse oximetry Systolic And Diastolic Provider Name and Address Organization Details Last Updated DateTime 5 149.86 cm 28.6 kg/m2 13217.3 2 g 60 /min 97 [degF] 96 % 96 % 122/58 mm[Hg] Susie [email or web address] [employer] [facility] [employer] 5 15:25:37 Date Recorded Body height Body mass index (BMI) Body weight Heart rate Body temperature Oxygen saturation Oxygen saturation in Arterial blood by Pulse oximetry Systolic And Diastolic Provider Name and Address Organization Details Last Updated DateTime 4 149.86 cm 32.1 kg/m2 60791.1 9 g 102 /min 97.3 [degF] 97 % 97 % 132/70 mm[Hg] EV [place] [facility] [employer] [facility] 4 16:00:50 Social History Question Answer Notes LastModified by Organization Details LastModified Time Tobacco Smoking Status Former Smoker Not Available [facility] 06/06/2022 12:45:02 Do You Have An Advance Directive? Yes MIGRATION.[id number] [id number] Information not available 06/06/2022 Are You Blind Or Do You Have Difficulty Seeing? No MIGRATION.0301 [id number] Information not available 06/06/2022 Are You Deaf Or Do You Have Serious Difficulty Hearing? No MIGRATION.0301 [id number] Information not available 06/06/2022 What Type Of Diet Are You Following? REGULAR MIGRATION.0301 [id number] Information not available 06/06/2022 Have There Been Any Changes To Your Family Or Social Situation? Yes Recently Lost Her Spouse [email or web address] Information not available 11/21/2023 What Is The Fluoride Status Of Your Home? Fluoridated MIGRATION.0301 [id number] Information not available 06/06/2022 When Did You Quit Smoking? 16+yearssincelastc igarette MIGRATION.0301 [id number] Information not available 06/06/2022 Are There Any Guns Present In Your Home? No MIGRATION.0301 [id number] Information not available 06/06/2022 Do You Use Insect Repellent Routinely? No [email or web address] Information not available 11/21/2023 [facility] M[facility]01 [id number] Information not available 06/06/2022 Are You Able To Care For Yourself? Yes [email or web address] Information not available 11/21/2023 Are You Blind Or Do Yo Have Difficulty Seeing? No [email or web address] Information not available 11/21/2023 Are You Deaf Or Do You Have Serious Difficulty Hearing? No [email or web address] Information not available 11/21/2023 Live Alone Of With Others? Alone [email or web address] Information not available 11/21/2023 Are You Following A Low Salt Diet? No MIGRATION.0301 [id number] Information not available 06/06/2022 Do You Have A Medical Power Of Wireworker Supervisor? Yes MIGRATION.0301 [id number] Information not available 06/06/2022 What Was The Date Of Your Most Recent Tobacco Screening? 11/21/2023 [email or web address] Information not available 11/21/2023 Do You Have Any Pets? No [email or web address] Information not available 11/21/2023 What Is Your Relationship Status? [email or web address] Information not available 11/21/2023 Do You Use Your Seat Belt Or Car Seat Routinely? Yes MIGRATION.0301 [id number] Information not available 06/06/2022 Do You Have Smoke And Carbon Monoxide Detectors In Your Home? Yes MIGRATION.0301 [id number] Information not available 06/06/2022 At What Age Did You Start Smoking Tobacco? 8 MIGRATION.0301 [id number] Information not available 06/06/2022 Do You Use Sunscreen Routinely? No [email or web address] Information not available 11/21/2023 Has Tobacco Cessation Counseling Been Provided? No MIGRATION.0301 [id number] Information not available 06/06/2022 Have You Recently Traveled Abroad? No [email or web address] Information not available 11/21/2023 Do You Have Difficulty Walking Or Climbing Stairs? Yes MIGRATION.0301 [id number] Information not available 06/06/2022 Do You Have Any Dietary Restrictions? Yes MIGRATION.0301 [id number] Information not available 06/06/2022 Sex: Unknown Functional Status Question Answer Note LastModified by Organizat ion Details LastModified Time Do you use any illicit or recreational drugs? No MIGRATION.759790 [id number] Information not available 06/06/2022 What is your level of alcohol consumption? None MIGRATION.704960 6411 Information not available 06/06/2022 Do you have transportation difficulties? No MIGRATION.865730 7513 Information not available 06/06/2022 Are you able to walk? YESASSIST uses a cane MIGRATION.867802 5443 Information not available 06/06/2022 Do you have difficulty doing errands alone? No [id number] Information not available 11/21/2023 Are you able to care for yourself? Yes [id number] Information not available 06/06/2022 Do you have difficulty dressing or bathing? No [id number] Information not available 06/06/2022 What is your exercise level? None [id number] Information not available 06/06/2022 Mental Status Question Answer Note LastModified by Organizat ion Details LastModified Time Do you have difficulty concentrating, remembering or making decisions? No [id number] Information not available 06/06/2022 Family History [...] HAVE YOU BEEN HOSPITALIZED OR SEEN IN [facility] IN THE PAST YEAR ? N [...] PF 3 completed Maria Luisa Rendon MD [address] [place] [address], [place] [address], [place], [address], [facility] [employer] 03/29/2023 16:10:02 SARS-COV-2 (COVID-19) vaccine, UNSPECIFIED 1 completed Not Available [facility] 06/06/2022 12:47:55 SARS-COV-2 (COVID-19) vaccine, UNSPECIFIED 1 completed Not Available [facility] 06/06/2022 12:47:56 Pneumococcal conjugate PCV 13 0 completed Not Available [facility] 06/06/2022 12:47:56 pneumococcal polysaccharide PPV23 7 completed Not Available [facility] 06/06/2022 12:47:56 Influenza, high-dose, quadrivalent, PF 1 completed Not Available [facility] 06/06/2022 12:47:56 Past Encounters Encounter ID Performer Location Encounter Start Date Encounter Closed Date Diagnosis/Indication Diagnosis SNOMED-CT Code Diagnosis ICD10 Code Diagnosis Note [id number] Maria Luisa Rendon MD [facility] Internal [place] [address] [place] [address] y , [place] [address] 06/21/2020 00:00:00 06/21/2020 15:56:12 [id number] Maria Luisa Rendon MD [facility] [place] [address] [place] [address] y , [place] [address] 10/28/2020 00:00:00 10/28/2020 16:59:34 [id number] Maria Luisa Rendon MD [facility] Internal [place] [address] [place] [address] [place] [address] 02/17/2021 00:00:00 02/17/2021 16:20:26 [id number] Maria Luisa Rendon MD [facility] [place] [address] [place] [address] y , [place] [address] 07/04/2021 00:00:00 07/04/2021 16:03:08 [id number] Maria Luisa Rendon MD [facility] Internal [place] [address] [place] [address] [place] [address] 12/01/2021 00:00:00 12/01/2021 15:45:44 [id number] Maria Luisa Rendon MD [facility] [place] [address] [place] [address] y , [place] [address] 04/06/2022 00:00:00 04/06/2022 15:32:43 [id number] Maria Luisa Rendon MD [facility] Internal [place] [address] [place] [address] [place] [address] 08/03/2022 15:12:52 08/03/2022 16:09:36 Chronic obstructive pulmonary disease 33084998 J44.9 Essential hypertension 91346492 I10 Pure hypercholesterolemia 609476882 E78.00 Type 2 kim betes mellitus without complication 050522272 E11.9 [id number] Maria Luisa Rendon MD [facility] Internal [place] [address] [place] [address] [place] [address] 11/30/2022 15:16:19 11/30/2022 16:02:36 Essential hypertension 89889343 I10 Pure hypercholesterolemia 583477566 E78.00 Type 2 kim betes mellitus without complication 264788366 E11.9 Chronic ob structive pulmonary disease 13473841 J44.9 Obese class I 9181514258 37824 E66.9 [id number] Maria Luisa Rendon MD [facility] Internal [place] [address] [place] [address] [place] [address] 03/29/2023 15:37:04 03/29/2023 16:18:08 Administration of influenza vaccine 17114085 Z23 Chronic ob structive pulmonary disease 90811651 J44.9 Pure hypercholesterolemia 537366515 E78.00 Type 2 kim betes mellitus without complication 856329669 E11.9 Essential hypertension 64903720 I10 [id number] Maria Luisa Rendon MD [facility] Internal [place] [address] [place] [address] [place] [address] 07/26/2023 15:53:47 07/26/2023 16:24:13 Essential hypertension 57229700 I10 Pure hypercholesterolemia 780189896 E78.00 Chronic ob structive pulmonary disease 22544354 J44.9 Chronic back pain 348512 002 M54.9 Type 2 kim betes mellitus without complication 868299986 E11.9 [id number] Maria Luisa Rendon MD [facility] Internal Med [place] [address] [facility] , [place] [facility] [address] 11/21/2023 15:53:50 11/21/2023 16:42:52 Adult health examination 533903269 Z00.00 Screening for disorder 731007207 Z13.9 Chronic ob structive pulmonary disease 18010239 J44.9 Pure hypercholesterolemia 650537891 E78.00 Essential hypertension 03523189 I10 Type 2 kim betes mellitus without complication 575321377 E11.9 Obese class I 8721096235 65617 E66.9 [id number] Maria Luisa Rendon MD [facility] Primary Care [facility] [address] [facility] [address] [place] [address] 04/23/2024 15:09:25 04/23/2024 15:51:38 Chronic obstructive pulmonary disease 92428411 J44.9 Essential hypertension 78127094 I10 Pure hypercholesterolemia 920089975 E78.00 Type 2 kim betes mellitus without complication 681259820 E11.9 [id number] Maria Luisa Rendon MD [facility] Primary Care [facility] [address] [facility] [address] [place] [address] 06/04/2024 14:52:23 06/04/2024 15:57:49 Abdominal pain 18354045 R10.9 Chronic ob structive pulmonary disease 61726140 J44.9 Essential hypertension 21903890 I10 Pure hypercholesterolemia 618430234 E78.00 Type 2 kim betes mellitus without complication 708606094 E11.9 [id number] Maria Luisa Rendon MD [facility] Primary Care [facility] [address] [facility] [address] [place] [address] 06/11/2024 14:51:04 06/11/2024 15:56:18 Gastrointestinal hemorrhage 03608603 K92.2 Essential hypertension 44096914 I10 Chronic ob structive pulmonary disease 72250447 J44.9 Type 2 kim betes mellitus 99058023 E11.29 [id number] Maria Luisa Rendon MD [facility] Internal Med [place] [address] [facility], [place] [address] [place] [address] 08/26/2024 15:09:16 08/26/2024 15:51:53 Chronic obstructive pulmonary disease 53343431 J44.9 Essential hypertension 60947804 I10 Pure hypercholesterolemia 467416277 E78.00 Type 2 kim betes mellitus 16463324 E11.9 Diverticul itis of colon 506550602 K57.32 Edema of l ower extremity 409626164 R60.0 Health Concerns Section Related Observation LastModified by Organization Detai ls LastModified Time None Recorded Concern Status LastModified by Organization Details LastModified Time None Recorded Advance Directives Directive Y: Payers Insurance Date Sequence Insurance Name Policy Number Policy Anderson Covered Member ID Anderson Member ID Guarantor Name 08/26/2024 1 [facility] - [employer]ARP - [employer] - MEDICARE COMPLETE PLAN 2 (MEDICARE REPLACEMENT HMO) [id number] Tyra Justice [id number] Tyra Davian Vinh Notes Date Note Type Note Provider Name [...] lesions. The last HAIC was done by casino surveillance officer. Average blood sugars 125-150 mg%. Checking sugars [...] offered to be evaluated and instructed by candy department manager on weight loss diet. Active Medication ListAmaryl [...] Adverse Drug Reactions ReviewedAvandia Swelling Vaccination and Mkhevhmkxnbz9470-62 Ngdiroere8937-53 Covid Qcnxnl4559-61 Prevnar 13 Wk7581-76 Pneumovax Surgical Ctyofsx5222-82 Left Rotator Cuff Mdrgoo8395-16 Sebacesou tfrg7932-21 Cjrfjzerss7331-61 Rt. Breast Ibdmwr3009-32 Sazkkhlsxs2646-09 Skulpthidcgxfjky7984-32 Kxwidzbiibvmyx5162-33 [facility] SPX2818-38 Cyvzuwbxoaaqn9814-90 Lt. Hip Surgery Preventative Testing( ) 08/30/2023 [...] at 81 from CA of lung, ASHD, [place] and aneurysm.Three brothers. One living alcoholic(1) CAD(2), DM(1)Two sisters one has Ca of colon. One CAD Maria Luisa Rendon MD [address] [facility], [facility] [address], [place], [address], [place] [employer] 11/21/2023 16:34:44 04/23/19 25 text/htm l Patient [...] Immunization( ) 2006- PNEUMOVAX(X) 2023-03 INFLUENZA( ) 2019- PREVNAR 13 GC(X) 2020-07 [employer] Surgical Qgzgkus2176-75 Left Rotator Cuff Fdwonx4870-49 Sebacesou srfb9280-75 Ptdqkkpohf6428-13 Rt. Breast Mgytvm7860-65 Rlezanbndu8290-80 Huchskdwghsgzlpb0830-23 Vzobundxnscfml1766-22 [facility] ADK9830-40 Jghldiiiujijg8888-84 Lt. Hip Surgery Preventative Testing( ) 01/16/2024 [...] at 81 from CA of lung, ASHD, [place] and aneurysm.Three brothers. One living alcoholic(1) CAD(2), DM(1)Two sisters one has Ca of colon. One CAD Maria Luisa Rendon MD [address] [facility], [facility] [address], [place], [address], [facility] [employer] 04/23/2024 15:35:44 06/04/19 25 text/htm l Patient [...] ) 2019-06 PREVNAR 13 GC(X) 2020-07 COVID [email or web address] Surgical Tpqabds9390-72 Left Rotator Cuff Nlkuab4269-63 Sebacesou cwps3674-47 Ptqovhxveg6903-05 Rt. Breast Xphbbk6222-03 Seldpbsytl0389-84 Vcuraoxoauledrlv5017-61 Bfwzvnquetzwez9541-99 [facility] MKQ7264-61 Dqynulphztshj9985-27 Lt. Hip Surgery Preventative Testing( ) 04/27/2024 [...] at 81 from CA of lung, ASHD, [place] and aneurysm.Three brothers. One living alcoholic(1) CAD(2), DM(1)Two sisters one has Ca of colon. One CAD Maria Luisa Rendon MD [address] [facility], [place] [address], [place], [address], [place] [facility] 06/04/2024 15:45:35 06/12/19 25 text/htm [...] Systemic Symptoms:none Medication Reconciliation: from medication list. Cocqvvparun07-21-6083: Colonoscopy diverticuli noted in the left colon. [...] Vaccination and Immunization( ) 2006- PNEUMOVAX( ) 2024-03 INFLUENZA( ) 2019-06 PREVNAR 13 GC(X) 2020-07 COVID [email or web address] Surgical Aqkmsvi6923-49 Left Rotator Cuff Nyocfn7418-81 Sebacesou lszw1794-74 Msaokdbjsz4560-21 Rt. Breast Uprseh9899-03 Zkrndtlkqg2952-03 Frdteopggbwowsmr7669-96 Xriwkawibljlyn9756-90 [facility] EOA6444-84 Tubtwxrwqzpni7070-97 Lt. Hip Surgery Preventative Testing( ) 06/11/2024 [...] at 81 from CA of lung, ASHD, [place] and aneurysm.Three brothers. One living alcoholic(1) CAD(2), DM(1)Two sisters one has Ca of colon. One CAD Maria Luisa Rendon MD [address] [place] [address], [facility] [address], [place], [address], [facility] [employer] 06/11/2024 15:48:40 08/27/19 25 text/htm l Patient Name: Tyra Evans Of Service: Saturday ( 08.26.2024 ): 1940 [...] Systemic Symptoms:none Medication Reconciliation: from medication list. Veovwwmgmsu89-76-4812: Colonoscopy diverticuli noted in the left colon. [...] 13 GC PREVNAR 20 Needed(X) 2020-07 COVID [email or web address] Surgical Fatawnr3028-00 Left Rotator Cuff Cvnokj6909-89 Sebacesou zmus7709-13 Ipmzdewsxa6147-50 Rt. Breast Ekxrac3855-72 Dhwguuisdq8878-85 Vxnusdxqwnouwtyn0860-49 Urbnwoyzslohqa9683-57 [facility] LYY9699-22 Xijhlhzrhbcec0781-67 Lt. Hip Surgery Preventative TestingPreventative Testing Discussed [...] at 81 from CA of lung, ASHD, [place] and aneurysm.Three brothers. One living alcoholic(1) CAD(2), DM(1)Two sisters one has Ca of colon. One CAD Maria Luisa Rendon MD [address] [facility], [facility] [address], [place], [address], [place] [facility] 08/26/2024 15:53:59 OBGyn Episode No OBEpisode recorded.
--- OUTSIDE RECORDS SUMMARY | 2024-10-10 00:59 | XMS_ITS | Continuity of Care Document ---
Author Organization [facility] [place] [address] [place] [address] [facility] [address] [place] [address] Phone Care Team Providers Care Medical Physicist Name Role Phone Rian Santizo Unavailable Unavailable Procedures Procedure Date Eye Exam, New Patient Refraction Advance Directives Directive Yes / No Effective Date File Name No Information Encounters Encounter Description Practice Location Reason(s) For Visit Diagnoses Date Provider Providers Copied on Encounter [facility], [address], [place], [place], [id number], [place] tel:[phone] [facility] No Information [address] [facility] [address], [place], [address], [place]. tel:[phone] Family History Family Member Type Diagnosis Age [...]
[2024-10-10] MEDS: MORPHINE SULFATE (*CRX) 4 MG/ML INJ IV PUSH (01:02)
[2024-10-10 01:15] LABS: Hematocrit 37.4 % (37.0-47.0); Hemoglobin 12.1 g/dL (12.0-15.0); Immature Granulocyte Percent A 0.5 % (0-0.5); Immature Platelet Fraction Pct 7.1 % (0.9-11.2); Lymphocytes Absolute Auto 1.00 K/mm3 (0.9-3.2); Mean Corpuscular HGB Conc 32.4 g/dl (32-36); Mean Corpuscular Hemoglobin 29.7 pg (26-34); Mean Corpuscular Volume 91.7 fl (80-100); Nucleated Red Blood Cells Absolute Auto 0.000 K/mm3 (0.0-0.012); Nucleated Red Blood Cells Perc 0.0 % (0.0-0.2); Platelet Count Result 133 k/mm3 (150-375); Red Blood Count 4.08 M/mm3 (4.2-5.4); White Blood Count 12.9 K/mm3 (4.5-10.0)
[2024-10-10 01:23] LABS: Alanine Aminotransferase 25 U/L (6-35); Albumin Level 4.4 g/dL (3.5-5.1); Alkaline Phosphatase 72 U/L (38-126); Anion Gap 9 mmol/L (4-12); Aspartate Amino Transferase 34 U/L (14-36); Bilirubin,Total 0.6 mg/dL (0.2-1.3); Blood Urea Nitrogen 24 mg/dL (7-17); Calcium 11.0 mg/dL (8.4-10.2); Carbon Dioxide 34 mmol/L (22-30); Chloride 96 mmol/L (98-107); Estimated Glomerular Filt Rate > 60; Glucose 199 mg/dL (65-110); Magnesium 1.6 mg/dL (1.6-2.3); Potassium 3.5 mmol/L (3.4-5.0); Sodium 139 mmol/L (137-145); Total Protein 7.5 g/dL (6.3-8.2)
--- NOTE | 2024-10-10 01:27 | PC.NURSE ---
Patient placed on 2L via NC for RA sat of 88% after pain medication administration.
[2024-10-10 01:31] LABS: INR 1.1; Partial Thromboplastin Time 24.5 Seconds (22.3-36.8); Prothrombin Time 14.2 Seconds (11.1-14.7)
--- NOTE | 2024-10-10 02:28 | PC.NURSE ---
Patients NG tube pulled back 10cm to 55cm depth per VORB.
--- NOTE | 2024-10-10 04:59 | PC.NURSE ---
Patient used BSC with x1 assist. Patient tolerated well.
[2024-10-10] MEDS: LACTATED RINGERS 1,000 ML 100 ML IV CONT ×2 (05:36→16:57)
--- NOTE | 2024-10-10 05:59 | PC.NURSE ---
PATIENT ARRIVED ON [facility]MEDSURG AT 0530
[2024-10-10 06:12] LABS: Hematocrit 34.4 % (37.0-47.0); Hemoglobin 10.9 g/dL (12.0-15.0)
--- OUTSIDE RECORDS SUMMARY | 2024-10-10 07:43 | XMS_ITS | Continuity of Care Document ---
Author Organization [facility] [place] [address] [place] [address] [facility] [address] [place] [address] Phone Care Team Providers Care Brim Molder Name Role Phone Rian Santizo Unavailable Unavailable Procedures Procedure Date Eye Exam, New Patient Refraction Advance Directives Directive Yes / No Effective Date File Name No Information Encounters Encounter Description Practice Location Reason(s) For Visit Diagnoses Date Provider Providers Copied on Encounter [facility], [address], [place], [place], [address], [place] tel:[phone] [facility] No Information [address] [facility] [address], [place], [address], [place]. tel:[phone] Family History Family Member Type Diagnosis Age At Onset No Information Payers Payer name Insurance type Covered republican ID Authoriza tion(s) No Information Social History [...]
--- OUTSIDE RECORDS SUMMARY | 2024-10-10 07:43 | XMS_ITS | Referral Summary ---
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 Gender Identity Not on file Sexual Orientation Not on file Last Filed Vital Signs Vital Sign Reading Time Taken Comments Blood Pressure 136/60 03/18/2024 2:12 PM GASOLINE LOCOMOTIVE CRANE OPERATOR Pulse 75 03/18/2024 2:12 PM GASOLINE LOCOMOTIVE CRANE OPERATOR Temperature - - Respiratory Rate - - Oxygen Saturation 97% 03/18/2024 2:12 PM GASOLINE LOCOMOTIVE CRANE OPERATOR Inhaled Oxygen Concentration - - Weight 68.9 kg (152 lb) 03/18/2024 2:12 PM GASOLINE LOCOMOTIVE CRANE OPERATOR Height 149.9 cm (4' 11) 03/18/2024 2:12 PM GASOLINE LOCOMOTIVE CRANE OPERATOR Body Mass Index 30.7 03/18/2024 2:12 PM GASOLINE LOCOMOTIVE CRANE OPERATOR Plan of Treatment Not on file Procedures [...] Most Recently Relevant to Health Maintenance Insurance [facility] MEDIC[facility] ADVANTAGE [facility] MEDIC[facility] ADVANTAGE [place] [id number] Care Teams Flame Cutting Machine Operator Helper Relationship Specialty Start Date End Date Dain Rendon MD PCP - General 01/02/10
--- OUTSIDE RECORDS SUMMARY | 2024-10-10 07:43 | XMS_ITS | Clinical Summary ---
Author Organization [facility] Address [address] [place] [address] Care Team Providers Care Rotor Winder Name Role Phone Dain Rendon MD Primary [...] Cholecystectomy TONSILLECTOMY Tonsillectomy HIP ARTHROPLASTY Hip replacement FL APPENDECTOMY Appendectomy - (Added by TW Conv) FL TONSILLECTOMY PRIMARY/SEC ONDARY <AGE 12 Tonsillectomy - (Added by TW Conv) GALLBLADDER SURGERY Gallbladder Surgery - (Added by TW Conv) HIP SURGERY Hip Surgery - (Added by TW Conv) FL HEMORRHOIDECTOMY INTERNAL RUBBER BAND LIGATIONS Hemorrhoidectomy - (Added by TW Conv) ROTATOR CUFF REPAIR Rotator Cuff Repair - (Added by TW Conv) FL BIOPSY BREAST OPEN INCISIONAL Incisional Breast Biopsy - (Added by TW Conv) FL LAPS ABD PRTM&OMENTUM DX W/WO SPEC BR/WA SPX Laparoscopy (Diagnostic) - (Added by TW Conv) FL CYSTO W/INSERT URETERAL STENT Cystoscopy With Insertion Of Ureteral Stent - (Added by TW Conv) FL SLING OPERATION STRESS INCONTINENCE Vaginal Sling Operation For Stress Incontinence - (Added by TW Conv) FL CMBND ANTERPOST COLPORRAP HY W/CYSTO W/NTRCL RPR Colporrhaphy Combined A-P And Enterocele Repair - (Added by TW Conv) FL COLPOCLEISIS [place] TYPE Vaginal Colpocleisis ([place] Procedure) - (Added by TW Conv) [place] VAGINECTOMY COMPLETE ENRIQUE JINNY VAGINAL WALL Vaginectomy [...] diabetes mellitus - (Added by TW Conv) shelter current use of aspirin Current use of [...] by TW Conv) Cystocele, midline Midline cysto brcie - (Added by TW Conv) Retention of [...] COPD (chronic obstructive pu lmonary disease) ([facility]) Arthritis Family History Medical History [...] on file Legal 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 Gender Identity Not on file Sexual Orientation Not on file Obstetrics History Last Filed Vital Signs Vital Sign Reading Time Taken Comments Blood Pressure 136/60 03/18/2024 2:12 PM BRAND STRATEGY MANAGER Pulse 75 03/18/2024 2:12 PM BRAND STRATEGY MANAGER Temperature - - Respiratory Rate - - Oxygen Saturation 97% 03/18/2024 2:12 PM BRAND STRATEGY MANAGER Inhaled Oxygen Concentration - - Weight 68.9 kg (152 lb) 03/18/2024 2:12 PM BRAND STRATEGY MANAGER Height 149.9 cm (4' 11) 03/18/2024 2:12 PM BRAND STRATEGY MANAGER Body Mass Index 30.7 03/18/2024 2:12 PM BRAND STRATEGY MANAGER Plan of Treatment Health Maintenance Due [...] Most Recently Relevant to Health Maintenance Insurance [facility] MEDIC[facility] ADVANTAGE [facility] Address: [address] [address] [place] [address] [facility] MEDICARE ADVANTAGE [facility] Address: [address] [address] [place] [address] Care Teams Rotor Winder Relationship Specialty Start Date End Date Dain Rendon MD PCP - General 01/02/10
[2024-10-10] MEDS: MORPHINE SULFATE (*CRX) 2 MG/ML INJ IV PUSH (09:22)
--- NOTE | 2024-10-10 12:41 | P.CONGI_ITS ---
Assessment and Plan Assessment and plan (1) Diarrhea: Code(s): R19.7 - Diarrhea, unspecified Status: Acute Assessment and Plan: Our assessment points to acute gastroenteritis. The CT scan showing small bowel distention is likely due to fluid retention from this acute process, and her clinical picture does not support small bowel obstruction. The dark green emesis, which was initially interpreted as coffee grounds, is instead consistent with stagnant bowel contents associated with an acute infectious process (gastroenteritis) and not active GI bleeding, allowing for NG tube removal. Her abdominal exam is benign, soft, and without signs of obstruction. We will advance her to a clear liquid diet today. Assuming she tolerates this, we anticipate discharge tomorrow. Finally, we'll ensure her pending capsule endoscopy for iron deficiency anemia is properly arranged for follow-up after discharge. GI Consult Note Consult date/time: 10/10/24 12:41 Reason for consult: Dark emesis HPI: Tyra Justice, an 84-year-old female, was admitted last night after experiencing two days of dark brown diarrheal stools accompanied by crampy lower abdominal pain. This was followed by persistent vomiting of black material, which was initially interpreted as coffee-grounds, leading to the placement of a nasogastric tube that remained in situ until this morning. Her medical history is notable for iron deficiency anemia, for which she was scheduled for a capsule endoscopy that has not yet been performed. Importantly, a recent EGD and colonoscopy in June of this year were unremarkable for any signs of gastrointestinal bleeding, only noting a small hiatal hernia. This morning, upon performing an NG tube lavage with 300 mL of tap water, 350 mL of deep green bile was returned, which was clearly not consistent with coffee- grounds. Consequently, the NG tube was immediately removed. The CT scan obtained at admission showed some dilated small bowel loops consistent with partial small bowel obstruction. Review of Systems 2 Review of Systems: All systems reviewed & are unremarkable except as noted in HPI and below PMFSH Past Medical History Medical History COPD (chronic obstructive pulmonary disease) Diabetes Dark stools Weight loss Acute anemia Family History Family History (Updated 10/10/24 @ 06:19 by Jeffery Rosario RN) Sibling Family history of heart disease in male family member before age 55 Family history of alcoholism Colon cancer Father Family history of heart disease in male family member before age 55 Family history of lung cancer Heart attack Sibling Diabetes mellitus Mother Cancer of pancreas Other Hypertension Social History Social History Smoking packs per day: 4 Smoking cigarettes per day: 80.0 Years smoked: 60 Smoking pack-years: 240.00 Smoking status: Former smoker Tobacco type: cigarettes Alcohol intake: never Substance use: never Do You Feel Safe in your Home?: Yes Lack of Transportation: No Lack of Food: Never True Current Housing: I Have Housing Concerned About Future Housing: No Difficulty Paying Gas/Electric Bills: No Difficulty Paying for Meds: No Currently Unemployed: No Education: High School Diploma/GED Difficulty w/ Childcare or Family Care: No Spiritual care concerns: Yes Meds Home Medications and Allergies Home Medications ?Medication ?Instructions ?Recorded ?Confirmed ?Type aspirin 81 mg tablet 81 mg PO DAILY 03/23/21 10/10/24 History atorvastatin 40 mg tablet 40 mg PO HS 03/23/21 10/10/24 History calcium 500 mg tablet 1,500 mg PO DAILY 03/23/21 10/10/24 History famotidine 20 mg tablet 20 mg PO BID 03/23/21 10/10/24 History lisinopril 10 mg tablet 10 mg PO DAILY 03/23/21 10/10/24 History metformin 500 mg tablet 500 mg PO BID 03/23/21 10/10/24 History insulin glargine 100 unit/mL 14 unit subcut .HS 05/14/24 10/10/24 History subcutaneous solution (Lantus U-100 Insulin) metoprolol succinate 25 mg 25 mg PO DAILY 06/05/24 10/10/24 History tablet,extended release 24 hr furosemide 20 mg tablet 20 mg PO Q12H PRN edema 10/10/24 10/10/24 History hydrocodone 7.5 mg-acetaminophen 1 tablet PO Q8H 10/10/24 10/10/24 History 325 mg tablet sertraline 50 mg tablet 50 mg PO Q24H 10/10/24 10/10/24 History Allergies Allergy/AdvReac Type Severity Reaction Status Date / Time empagliflozin (From Allergy Mild unkown Verified 10/10/24 05:40 Jardiance) ioversol Allergy Unknown Unknown Verified 10/10/24 05:40 codeine AdvReac Intermediate NAUSEA/VOMI Verified 10/10/24 05:40 TING Contrast Media Allergy Severe CARDIA/RESP Uncoded 10/10/24 05:40 ARREST Vital Signs Vital Signs - 24 hr 10/10/24 00:34 10/10/24 00:40 10/10/24 00:42 Temperature 99.2 F Pulse Rate 66 64 63 Respiratory Rate 15 15 11 L Blood Pressure 138/64 138/64 Pulse Oximetry 97 97 98 Oxygen Delivery Room Air Oxygen Flow Rate Fraction of Inspired Oxygen 10/10/24 00:45 10/10/24 00:47 10/10/24 01:00 Temperature Pulse Rate 73 73 91 Respiratory Rate 18 18 28 H Blood Pressure 126/65 Pulse Oximetry 99 99 93 Oxygen Delivery Oxygen Flow Rate Fraction of Inspired Oxygen 10/10/24 01:02 10/10/24 01:26 10/10/24 01:30 Temperature Pulse Rate 105 H 66 Respiratory Rate 16 16 Blood Pressure 147/68 H Pulse Oximetry 98 99 Oxygen Delivery Nasal Cannula Oxygen Flow Rate 2 Fraction of Inspired Oxygen 10/10/24 01:43 10/10/24 01:45 10/10/24 02:00 Temperature Pulse Rate 73 71 59 L Respiratory Rate 18 18 15 Blood Pressure 147/68 H Pulse Oximetry 100 99 100 Oxygen Delivery Oxygen Flow Rate Fraction of Inspired Oxygen 10/10/24 02:15 10/10/24 02:30 10/10/24 02:32 Temperature Pulse Rate 59 L 58 L 61 Respiratory Rate 16 18 15 Blood Pressure 132/55 L Pulse Oximetry 100 100 100 Oxygen Delivery Oxygen Flow Rate Fraction of Inspired Oxygen 10/10/24 02:33 10/10/24 02:45 10/10/24 03:00 Temperature Pulse Rate 61 61 61 Respiratory Rate 15 16 17 Blood Pressure Pulse Oximetry 95 Oxygen Delivery Oxygen Flow Rate Fraction of Inspired Oxygen 10/10/24 03:15 10/10/24 03:17 10/10/24 03:30 Temperature Pulse Rate 61 66 59 L Respiratory Rate 15 14 16 Blood Pressure 107/43 L Pulse Oximetry Oxygen Delivery Oxygen Flow Rate Fraction of Inspired Oxygen 10/10/24 03:45 10/10/24 04:00 10/10/24 04:01 Temperature Pulse Rate 62 61 61 Respiratory Rate 16 16 15 Blood Pressure 115/49 L Pulse Oximetry Oxygen Delivery Oxygen Flow Rate Fraction of Inspired Oxygen 10/10/24 04:15 10/10/24 04:30 10/10/24 05:08 Temperature 98.2 F Pulse Rate 62 61 67 Respiratory Rate 15 17 16 Blood Pressure 136/63 Pulse Oximetry 100 100 Oxygen Delivery Oxygen Flow Rate Fraction of Inspired Oxygen 10/10/24 06:00 10/10/24 07:33 Temperature 98.2 F Pulse Rate 63 80 Respiratory Rate 18 20 Blood Pressure 134/56 L Pulse Oximetry 100 98 Oxygen Delivery Nasal Cannula Oxygen Flow Rate 1 Fraction of Inspired Oxygen 24 Exam 2 Narrative: Abdomen: Soft, nontender, nondistended, bowel sounds present. Rest of the exam within normal limits. Results Labs 10/10/24 06:01 10/10/24 01:06 Labs: Short CBC 10/10/24 10/10/24 Range/Units 01:06 06:01 WBC 12.9 H (4.5-10.0) K/mm3 Hgb 12.1 10.9 L (12.0-15.0) g/dL Hct 37.4 34.4 L (37.0-47.0) % Plt Count 133 L (150-375) k/mm3 BMP 10/10/24 01:06 Sodium 139 Potassium 3.5 Chloride 96 L Carbon Dioxide 34 H BUN 24 H D Creatinine 0.77 Glucose 199 H Calcium 11.0 H Liver Function 10/10/24 Range/Units 01:06 Total Bilirubin 0.6 (0.2-1.3) mg/dL AST 34 (14-36) U/L ALT 25 (6-35) U/L Alkaline Phosphatase 72 (38-126) U/L Albumin 4.4 (3.5-5.1) g/dL
[2024-10-10 13:02] LABS: Hematocrit 32.0 % (37.0-47.0); Hemoglobin 10.1 g/dL (12.0-15.0)
--- NOTE | 2024-10-10 14:40 | PM.IMHP ---
H&P: HPI History of Present Illness Date/Time: 10/10/24 14:40 Chief Complaint: Coffee Ground Emesis/LUQ pain Narrative: ER-HPI Narrative: 84-year-old female with a past medical history including anemia presenting to the emergency department with upper GI bleeding symptoms. She states she has had 2 days of coffee-ground emesis. Once yesterday and 2 episodes today with large voluminous black discolored material with coffee-ground discoloration visible as reported by EMS. Patient states she has been having some left upper quadrant abdominal pain for last 2 days that preceded the nausea and vomiting. Endorses having entire workups for the GI system including endoscopies, colonoscopies, capsule endoscopies done in June of this year. No acute findings aside from some diverticula and hiatal hernia without any gastritis. She does not see a GI doctor presently in this happened on inpatient basis. She has required transfusions before for suspected anemia from blood loss. Presently she is complaining of left upper quadrant abdominal pain and some nauseousness. No dark stools or blood in the rectum, no chest pain difficulty in breathing. No trauma or injury. She takes a baby aspirin but no other NSAIDs. patient was seen by the GI, review CT scan and does not suspect patient has SBO, checked her NG tube out put its green but its not bloody and suspect consist of stagnant bowl contents, NG tube was removed and started the patient on clear liquids and will advance her diet, patient stats feeling much better and denies nausea or vomiting. patient family is present, patient is hungry wants to eat. Review of Systems Review of Systems: As reviewed above in HPI [facility] Past Medical History Medical History COPD (chronic obstructive pulmonary disease) Diabetes Dark stools Weight loss Acute anemia Family History Family History (Updated 10/10/24 @ 06:19 by Jeffery Rosario RN) Sibling Family history of heart disease in male family member before age 55 Family history of alcoholism Colon cancer Father Family history of heart disease in male family member before age 55 Family history of lung cancer Heart attack Sibling Diabetes mellitus Mother Cancer of pancreas Other Hypertension Social History Social History Smoking packs per day: 4 Smoking cigarettes per day: 80.0 Years smoked: 60 Smoking pack-years: 240.00 Smoking status: Former smoker Tobacco type: cigarettes Alcohol intake: never Substance use: never Do You Feel Safe in your Home?: Yes Lack of Transportation: No Lack of Food: Never True Current Housing: I Have Housing Concerned About Future Housing: No Difficulty Paying Gas/Electric Bills: No Difficulty Paying for Meds: No Currently Unemployed: No Education: High School Diploma/GED Difficulty w/ Childcare or Family Care: No Spiritual care concerns: Yes Meds Home Medications and Allergies Home Medications ?Medication ?Instructions ?Recorded ?Confirmed ?Type aspirin 81 mg tablet 81 mg PO DAILY 03/23/21 10/10/24 History atorvastatin 40 mg tablet 40 mg PO HS 03/23/21 10/10/24 History calcium 500 mg tablet 1,500 mg PO DAILY 03/23/21 10/10/24 History famotidine 20 mg tablet 20 mg PO BID 03/23/21 10/10/24 History lisinopril 10 mg tablet 10 mg PO DAILY 03/23/21 10/10/24 History metformin 500 mg tablet 500 mg PO BID 03/23/21 10/10/24 History insulin glargine 100 unit/mL 14 unit subcut .HS 05/14/24 10/10/24 History subcutaneous solution (Lantus U-100 Insulin) metoprolol succinate 25 mg 25 mg PO DAILY 06/05/24 10/10/24 History tablet,extended release 24 hr furosemide 20 mg tablet 20 mg PO Q12H PRN edema 10/10/24 10/10/24 History hydrocodone 7.5 mg-acetaminophen 1 tablet PO Q8H 10/10/24 10/10/24 History 325 mg tablet sertraline 50 mg tablet 50 mg PO Q24H 10/10/24 10/10/24 History Allergies Allergy/AdvReac Type Severity Reaction Status Date / Time Iodinated Contrast Media Allergy Severe Stopped Verified 10/10/24 12:54 Breathing/ CARDIAC ARREST empagliflozin (From Allergy Mild unkown Verified 10/10/24 05:40 Jardiance) ioversol Allergy Unknown Unknown Verified 10/10/24 05:40 codeine AdvReac Intermediate NAUSEA/VOMI Verified 10/10/24 05:40 TING Contrast Media Allergy Severe CARDIA/RESP Uncoded 10/10/24 05:40 ARREST Vital Signs Vital Signs - 24 hr 10/10/24 00:34 10/10/24 00:40 10/10/24 00:42 Temperature 37.3 C Pulse Rate 66 64 63 Respiratory Rate 15 15 11 L Blood Pressure 138/64 138/64 Pulse Oximetry 97 97 98 Oxygen Delivery Room Air Oxygen Flow Rate Fraction of Inspired Oxygen 10/10/24 00:45 10/10/24 00:47 10/10/24 01:00 Temperature Pulse Rate 73 73 91 Respiratory Rate 18 18 28 H Blood Pressure 126/65 Pulse Oximetry 99 99 93 Oxygen Delivery Oxygen Flow Rate Fraction of Inspired Oxygen 10/10/24 01:02 10/10/24 01:26 10/10/24 01:30 Temperature Pulse Rate 105 H 66 Respiratory Rate 16 16 Blood Pressure 147/68 H Pulse Oximetry 98 99 Oxygen Delivery Nasal Cannula Oxygen Flow Rate 2 Fraction of Inspired Oxygen 10/10/24 01:43 10/10/24 01:45 10/10/24 02:00 Temperature Pulse Rate 73 71 59 L Respiratory Rate 18 18 15 Blood Pressure 147/68 H Pulse Oximetry 100 99 100 Oxygen Delivery Oxygen Flow Rate Fraction of Inspired Oxygen 10/10/24 02:15 10/10/24 02:30 10/10/24 02:32 Temperature Pulse Rate 59 L 58 L 61 Respiratory Rate 16 18 15 Blood Pressure 132/55 L Pulse Oximetry 100 100 100 Oxygen Delivery Oxygen Flow Rate Fraction of Inspired Oxygen 10/10/24 02:33 10/10/24 02:45 10/10/24 03:00 Temperature Pulse Rate 61 61 61 Respiratory Rate 15 16 17 Blood Pressure Pulse Oximetry 95 Oxygen Delivery Oxygen Flow Rate Fraction of Inspired Oxygen 10/10/24 03:15 10/10/24 03:17 10/10/24 03:30 Temperature Pulse Rate 61 66 59 L Respiratory Rate 15 14 16 Blood Pressure 107/43 L Pulse Oximetry Oxygen Delivery Oxygen Flow Rate Fraction of Inspired Oxygen 10/10/24 03:45 10/10/24 04:00 10/10/24 04:01 Temperature Pulse Rate 62 61 61 Respiratory Rate 16 16 15 Blood Pressure 115/49 L Pulse Oximetry Oxygen Delivery Oxygen Flow Rate Fraction of Inspired Oxygen 10/10/24 04:15 10/10/24 04:30 10/10/24 05:08 Temperature 36.8 C Pulse Rate 62 61 67 Respiratory Rate 15 17 16 Blood Pressure 136/63 Pulse Oximetry 100 100 Oxygen Delivery Oxygen Flow Rate Fraction of Inspired Oxygen 10/10/24 06:00 10/10/24 07:33 10/10/24 14:00 Temperature 36.8 C 36.6 C Pulse Rate 63 80 72 Respiratory Rate 18 20 18 Blood Pressure 134/56 L 138/62 Pulse Oximetry 100 98 97 Oxygen Delivery Nasal Cannula Oxygen Flow Rate 1 Fraction of Inspired Oxygen 24 Exam Narrative: Patient is comfortable, NAD HEENT: eyes are clear and none icteric LUNGS:CTA HEART: RR S1S2 ABD: BS+, Soft and nontender Lower extremities: no edema SKIN: nonjaundiced Neuro: grossly intact. H&P: Results Labs Labs: Short CBC 10/10/24 10/10/24 10/10/24 Range/Units 01:06 06:01 12:48 WBC 12.9 H (4.5-10.0) K/mm3 Hgb 12.1 10.9 L 10.1 L (12.0-15.0) g/dL Hct 37.4 34.4 L 32.0 L (37.0-47.0) % Plt Count 133 L (150-375) k/mm3 BMP 10/10/24 01:06 Sodium 139 Potassium 3.5 Chloride 96 L Carbon Dioxide 34 H BUN 24 H D Creatinine 0.77 Glucose 199 H Calcium 11.0 H Liver Function 10/10/24 Range/Units 01:06 Total Bilirubin 0.6 (0.2-1.3) mg/dL AST 34 (14-36) U/L ALT 25 (6-35) U/L Alkaline Phosphatase 72 (38-126) U/L Albumin 4.4 (3.5-5.1) g/dL Assessment and Plan Assessment and plan (1) Hematemesis: Code(s): K92.0 - Hematemesis Status: Acute (2) Anemia: Code(s): D64.9 - Anemia, unspecified Status: Acute (3) Symptomatic anemia: Code(s): D64.9 - Anemia, unspecified Status: Acute (4) Hypertension: Code(s): I10 - Essential (primary) hypertension Status: Acute Plan patient was seen by the GI, review CT scan and does not suspect patient has SBO, checked her NG tube out put its green but its not bloody and suspect consist of stagnant bowl contents, NG tube was removed and started the patient on clear liquids and will advance her diet, patient stats feeling much better and denies nausea or vomiting. patient family is present, patient is hungry wants to eat. Quality VTE Prophylaxis VTE prophylaxis: mechanical ordered Hospitalist [facility] Advance Care Plan I have confirmed that the patient's Advanced Care Plan is present, code status is documented, or surrogate decision maker is listed in patient medical record.: Yes Medication Reconciliation The patient is not eligible for med reconciliation; the patient is in a emergent medical situation where delaying treatment would jeopardize the patients health.: No
[2024-10-10] MEDS: ATORVASTATIN 40 MG TABLET PO (21:22)
[2024-10-10] MEDS: FAMOTIDINE 20 MG TABLET PO (21:22)
[2024-10-10] MEDS: HYDROcodone/acetaminophen (*CRX) 7.5-325 MG TABLET 1 TAB PO (21:28)
[2024-10-11] VITALS (10 sets, daily range): BP systolic 122–136; BP diastolic 42–56; PULSE 50–65; RESP 16–20; TEMP 36.2–36.7; O2SAT 98–99
[2024-10-11] MEDS: PROMETHAZINE HCL 25 MG/ML AMPUL IM (01:55)
[2024-10-11] MEDS: MORPHINE SULFATE (*CRX) 4 MG/ML INJ IV PUSH (01:56)
[2024-10-11] MEDS: LACTATED RINGERS 1,000 ML 100 ML IV CONT ×2 (05:30→18:20)
[2024-10-11 05:58] LABS: Hematocrit 34.7 % (37.0-47.0); Hemoglobin 10.9 g/dL (12.0-15.0); Immature Platelet Fraction Pct 6.7 % (0.9-11.2); Mean Corpuscular HGB Conc 31.4 g/dl (32-36); Mean Corpuscular Hemoglobin 29.7 pg (26-34); Mean Corpuscular Volume 94.6 fl (80-100); Red Blood Count 3.67 M/mm3 (4.2-5.4); White Blood Count 7.2 K/mm3 (4.5-10.0)
[2024-10-11 05:59] LABS: Platelet Count Result 86 k/mm3 (150-375)
[2024-10-11 06:14] LABS: Alanine Aminotransferase 15 U/L (6-35); Albumin Level 3.4 g/dL (3.5-5.1); Alkaline Phosphatase 51 U/L (38-126); Anion Gap 3 mmol/L (4-12); Aspartate Amino Transferase 29 U/L (14-36); Bilirubin,Total 0.5 mg/dL (0.2-1.3); Blood Urea Nitrogen 17 mg/dL (7-17); Calcium 9.9 mg/dL (8.4-10.2); Carbon Dioxide 34 mmol/L (22-30); Chloride 99 mmol/L (98-107); Estimated Glomerular Filt Rate > 60; Glucose 175 mg/dL (65-110); Magnesium 1.7 mg/dL (1.6-2.3); Potassium 3.5 mmol/L (3.4-5.0); Sodium 136 mmol/L (137-145); Total Protein 5.8 g/dL (6.3-8.2)
--- NOTE | 2024-10-11 08:23 | P.PNGI_ITS ---
Progress Note: A&P Assessment and Plan (1) Nausea and vomiting: Code(s): R11.2 - Nausea with vomiting, unspecified Status: Acute Assessment and Plan: What appeared to be a gastroenteritis has evolved into a picture of predominant mid-abdominal pain and repeated emesis, raising suspicion for small bowel obstruction. A CT scan done at admission showed dilated small bowel loops. This morning, we will request a comparative CT scan, likely increase the fluid rate, and reinsert the NG tube. Subjective Date/time seen: 10/11/24 08:23 Interval history: The patient had multiple episodes of retching last night, one of them accompanied by dark greenish emesis. In addition she has been complaining of moderate to severe mid abdominal pain, requiring intravenous analgesics. No stool or gas passage. Exam Narrative: Abdomen: Somewhat tender in the epigastrium, tympanitic, more distended than yesterday. Head of the exam unchanged. Objective Data Vital Signs Vital Signs: Vital Signs - 24 hr 10/10/24 12:02 10/10/24 14:00 10/10/24 16:04 Temperature 97.9 F Pulse Rate 72 72 72 Respiratory Rate 18 Blood Pressure 138/62 Pulse Oximetry 97 Oxygen Delivery Oxygen Flow Rate Fraction of Inspired Oxygen 10/10/24 20:00 10/10/24 20:00 10/10/24 20:08 Temperature Pulse Rate 55 L 58 L Respiratory Rate 16 Blood Pressure Pulse Oximetry 97 97 Oxygen Delivery Nasal Cannula Nasal Cannula Oxygen Flow Rate 1 1 Fraction of Inspired Oxygen 24 24 10/10/24 22:00 10/11/24 00:00 10/11/24 04:00 Temperature 98.1 F Pulse Rate 55 L 50 L 54 L Respiratory Rate 16 Blood Pressure 143/61 H Pulse Oximetry 97 Oxygen Delivery Oxygen Flow Rate Fraction of Inspired Oxygen 10/11/24 06:00 Temperature 98.1 F Pulse Rate 55 L Respiratory Rate 16 Blood Pressure 136/56 L Pulse Oximetry 99 Oxygen Delivery Oxygen Flow Rate Fraction of Inspired Oxygen Intake/Output Intake/Output: Intake & Output 10/08/24 10/09/24 10/10/24 10/11/24 23:59 23:59 23:59 23:59 Intake Total 2360 1200 Output Total 950 50 Balance 1410 1150 Meds/Results Medications: Active Medications Generic Name Dose Route Start Last Admin Trade Name Freq PRN Reason Stop Dose Admin Acetaminophen 650 mg 10/10/24 06:29 Acetaminophen 650 Mg Suppository RECTAL Q4H PRN Pain Rated 5 or Less or Fever Hydrocodone Bitart/Acetaminophen 1 tab 10/11/24 01:58 Hydrocodone/Acetaminophen (*Crx) 7.5-325 Mg Tablet PO Q8HR PRN Pain 6 or greater Aspirin 81 mg 10/10/24 15:10 10/10/24 18:26 Aspirin 81 Mg Enteric Tablet PO 11/10/24 15:09 Not Given DAILY TAMIR Atorvastatin Calcium 40 mg 10/10/24 21:00 10/10/24 21:22 Atorvastatin 40 Mg Tablet PO 40 mg HS TAMIR Administration Calcium Carbonate 500 mg 10/10/24 15:10 10/10/24 18:26 Calcium Carbonate (Oscal) 500 Mg Tablet PO 11/10/24 15:09 Not Given DAILY TAMIR Dextrose 12.5 gm 10/10/24 15:02 Dextrose 50% 25 Gm/50 Ml Syringe IV PUSH PRN PRN Hypoglycemia Protocol Famotidine 20 mg 10/10/24 21:00 10/10/24 21:22 Famotidine 20 Mg Tablet PO 20 mg Q12HR TAMIR Administration Furosemide 20 mg 10/10/24 14:59 Furosemide 20 Mg Tablet PO Q12H PRN edema Glucagon 1 mg 10/10/24 15:02 Glucagon For Inj 1 Mg Vial IM PRN PRN Hypoglycemia Protocol Glucose 15 gm 10/10/24 15:02 Glucose Oral Gel 15 Gm Of Glucse In 37.5 Gm Tube PO PRN PRN Hypoglycemia Protocol Lactated Ringer's 1,000 mls @ 100 mls/hr 10/10/24 03:55 10/11/24 05:30 Lr - Lactated Ringers Iv IV CONT 100 mls/hr .Q10H TAMIR Administration Dextrose 1,000 mls @ 100 mls/hr 10/10/24 15:02 Dextrose 5% 1,000 Ml IVPB PRN PRN Hypoglycemia Protocol Insulin Glargine 14 units 10/10/24 21:00 10/10/24 21:31 Insulin Glargine (*Bkc) 100 Units/Ml SUB-Q Not Given HS TAMIR Lisinopril 10 mg 10/10/24 15:10 10/10/24 18:26 Lisinopril 10 Mg Tablet PO Not Given DAILY TAMIR Metformin HCl 500 mg 10/10/24 17:00 10/10/24 18:26 Metformin Hcl 500 Mg Tablet PO Not Given BIDWM [facility] Metoprolol Succinate 25 mg 10/10/24 15:10 10/10/24 18:25 Metoprolol Succinate Ext Rel 25 Mg Tabcr PO Not Given DAILY [facility] Ondansetron HCl 4 mg 10/10/24 03:52 10/10/24 22:47 Ondansetron Inj 4 Mg/2 Ml Vial IV PUSH 4 mg Q4H PRN Administration Nausea Sertraline HCl 50 mg 10/10/24 15:10 10/10/24 18:26 Sertraline Hcl 50 Mg Tablet PO Not Given QAM [facility] Radiology Results: ITS Impressions Abdomen/Pelvis CT 10/10/24 09:19 IMPRESSION: Partial small bowel obstruction with air identified in the colon and rectum. Abdomen X-Ray 10/10/24 09:29 IMPRESSION: Nasogastric tube in good position and ready for immediate use. Labs Labs: Laboratory Results - last 24 hr 10/10/24 10/10/24 10/10/24 12:48 18:29 21:31 WBC RBC Hgb 10.1 L Hct 32.0 L MCV MCH MCHC RDW Plt Count MPV % Immature Plt Fraction Sodium Potassium Chloride Carbon Dioxide Anion Gap BUN Creatinine Estim Creat Clear Calc Estimated GFR Glucose POC Capillary Glucose 212 H 179 H Calcium Magnesium Total Bilirubin AST ALT Alkaline Phosphatase Total Protein Albumin 10/11/24 10/11/24 05:37 06:48 WBC 7.2 RBC 3.67 L Hgb 10.9 L Hct 34.7 L MCV 94.6 MCH 29.7 MCHC 31.4 L RDW 17.8 H Plt Count 86 L MPV 10.7 H % Immature Plt Fraction 6.7 Sodium 136 L Potassium 3.5 Chloride 99 Carbon Dioxide 34 H Anion Gap 3 L BUN 17 Creatinine 0.68 L Estim Creat Clear Calc Not Reportable Estimated GFR > 60 Glucose 175 H POC Capillary Glucose 160 H Calcium 9.9 Magnesium 1.7 Total Bilirubin 0.5 AST 29 ALT 15 Alkaline Phosphatase 51 Total Protein 5.8 L Albumin 3.4 L
--- NOTE | 2024-10-11 09:28 | P.PNIM_ITS ---
Progress Note: A&P Assessment and Plan (1) SBO (small bowel obstruction): Code(s): K56.609 - Unspecified intestinal obstruction, unspecified as to partial versus complete obstruction Status: Acute Assessment and Plan: patient initially presented with nausea vomiting initial CT abdomen showing partial small bowel obstruction and NG tube was placed and patient was admitted to the medical unit for bowel rest and decompression with a consult to GI. patient had overall improvement with placement of NG tube appeared emesis looked more like gastroenteritis and patient with overall improvement to nausea vo miting requesting to eat. NG tube was then removed however after initiating food patient's nausea vomiting return with mid abdominal pain and further emesis. * CT abdomen repeat SBO * General surgery consulted * will small bowel series * patient likely need reinsertion of NG tube * pain control with IV Dilaudid * antiemetics * NPO status * IV fluids (2) Anemia: Code(s): D64.9 - Anemia, unspecified Status: Acute Assessment and Plan: patient with history of anemia hemoglobin stable at this time * Monitor Hgb no evidence of GIB * Transfuse PRBC if Hgb <7.0 (3) Hypertension: Code(s): I10 - Essential (primary) hypertension Status: Acute Assessment and Plan: patient with mild hypertension * will continue her lisinopril and metoprolol when able to tolerate oral intake * BP per unit protocol (4) HLD (hyperlipidemia): Code(s): E78.5 - Hyperlipidemia, unspecified Status: Acute Assessment and Plan: * continue statin when able (5) Diabetes: Code(s): E11.9 - Type 2 diabetes mellitus without complications Status: Acute Assessment and Plan: * patient NPO status q.6 a.c. HS * sliding scale insulin * resumed long-acting insulin 14 units * will hold patient's metformin * hypoglycemic protocol (6) Thrombocytopenia: Code(s): D69.6 - Thrombocytopenia, unspecified Status: Acute Assessment and Plan: Chronic patient has been follow and monitored outpatient by primary: 133 POA dropped to 86 * trend and monitor for bleeding * Transfuse PLT if <15 * recommend f/u outpatient with cook soup Plan Code status: DNR DVT prophylaxis: SCD Stress ulcer prophylaxis: Pepcid IVP BID while NPO PT/OT notes: Disposition: Patient admitted to the medical unit for further evaluation and treatment of SBO GI currently consulted, consulted general surgery and NG tube will need replaced for decompression. Need small bowel series Time Spent With Patient Time with patient: 15 - 25 minutes Subjective Date/time seen: 10/11/24 09:28 Interval history: Patient is an 84-year-old female admitted for further evaluation and treatment of SBO, GI initially consulted if continued obstruction may need general surgery. 10/11/2024: Patient still with ABD tenderness and N/V. Patient reported no BM or gas for at least 4 days. Afebrile and normal WBC. F/U CT showing SBO plan to replace NG tube, consulted general surgery and will nee small bowl series. Review of Systems Review of Systems: As reviewed above in HPI Exam Narrative: Patient is comfortable, NAD HEENT: eyes are clear and none icteric LUNGS:CTA HEART: RR S1S2 ABD: BS+, Soft and nontender Lower extremities: no edema SKIN: nonjaundiced Neuro: grossly intact. Objective Data Vital Signs Vital Signs: Vital Signs - 24 hr 10/10/24 12:02 10/10/24 14:00 10/10/24 16:04 Temperature 97.9 F Pulse Rate 72 72 72 Respiratory Rate 18 Blood Pressure 138/62 Pulse Oximetry 97 Oxygen Delivery Oxygen Flow Rate Fraction of Inspired Oxygen 10/10/24 20:00 10/10/24 20:00 10/10/24 20:08 Temperature Pulse Rate 55 L 58 L Respiratory Rate 16 Blood Pressure Pulse Oximetry 97 97 Oxygen Delivery Nasal Cannula Nasal Cannula Oxygen Flow Rate 1 1 Fraction of Inspired Oxygen 24 24 10/10/24 22:00 10/11/24 00:00 10/11/24 04:00 Temperature 98.1 F Pulse Rate 55 L 50 L 54 L Respiratory Rate 16 Blood Pressure 143/61 H Pulse Oximetry 97 Oxygen Delivery Oxygen Flow Rate Fraction of Inspired Oxygen 10/11/24 06:00 Temperature 98.1 F Pulse Rate 55 L Respiratory Rate 16 Blood Pressure 136/56 L Pulse Oximetry 99 Oxygen Delivery Oxygen Flow Rate Fraction of Inspired Oxygen Intake/Output Intake/Output: Intake & Output 10/08/24 10/09/24 10/10/24 10/11/24 23:59 23:59 23:59 23:59 Intake Total 2360 1200 Output Total 950 50 Balance 1410 1150 Meds/Results Medications: Active Medications Generic Name Dose Route Start Last Admin Trade Name Freq PRN Reason Stop Dose Admin Acetaminophen 650 mg 10/10/24 06:29 Acetaminophen 650 Mg Suppository RECTAL Q4H PRN Pain Rated 5 or Less or Fever Hydrocodone Bitart/Acetaminophen 1 tab 10/11/24 01:58 Hydrocodone/Acetaminophen (*Crx) 7.5-325 Mg Tablet PO Q8HR PRN Pain 6 or greater Aspirin 81 mg 10/10/24 15:10 10/10/24 18:26 Aspirin 81 Mg Enteric Tablet PO 11/10/24 15:09 Not Given DAILY TAMIR Atorvastatin Calcium 40 mg 10/10/24 21:00 10/10/24 21:22 Atorvastatin 40 Mg Tablet PO 40 mg HS TAMIR Administration Calcium Carbonate 500 mg 10/10/24 15:10 10/10/24 18:26 Calcium Carbonate (Oscal) 500 Mg Tablet PO 11/10/24 15:09 Not Given DAILY TAMIR Dextrose 12.5 gm 10/10/24 15:02 Dextrose 50% 25 Gm/50 Ml Syringe IV PUSH PRN PRN Hypoglycemia Protocol Famotidine 20 mg 10/10/24 21:00 10/10/24 21:22 Famotidine 20 Mg Tablet PO 20 mg Q12HR TAMIR Administration Furosemide 20 mg 10/10/24 14:59 Furosemide 20 Mg Tablet PO Q12H PRN edema Glucagon 1 mg 10/10/24 15:02 Glucagon For Inj 1 Mg Vial IM PRN PRN Hypoglycemia Protocol Glucose 15 gm 10/10/24 15:02 Glucose Oral Gel 15 Gm Of Glucse In 37.5 Gm Tube PO PRN PRN Hypoglycemia Protocol Lactated Ringer's 1,000 mls @ 100 mls/hr 10/10/24 03:55 10/11/24 05:30 Lr - Lactated Ringers Iv IV CONT 100 mls/hr .Q10H TAMIR Administration Dextrose 1,000 mls @ 100 mls/hr 10/10/24 15:02 Dextrose 5% 1,000 Ml IVPB PRN PRN Hypoglycemia Protocol Insulin Glargine 14 units 10/10/24 21:00 10/10/24 21:31 Insulin Glargine (*Bkc) 100 Units/Ml SUB-Q Not Given HS TAMIR Lisinopril 10 mg 10/10/24 15:10 10/10/24 18:26 Lisinopril 10 Mg Tablet PO Not Given DAILY TAMIR Metformin HCl 500 mg 10/10/24 17:00 10/10/24 18:26 Metformin Hcl 500 Mg Tablet PO Not Given BIDWM [facility] Metoprolol Succinate 25 mg 10/10/24 15:10 10/10/24 18:25 Metoprolol Succinate Ext Rel 25 Mg Tabcr PO Not Given DAILY [facility] Ondansetron HCl 4 mg 10/10/24 03:52 10/10/24 22:47 Ondansetron Inj 4 Mg/2 Ml Vial IV PUSH 4 mg Q4H PRN Administration Nausea Sertraline HCl 50 mg 10/10/24 15:10 10/10/24 18:26 Sertraline Hcl 50 Mg Tablet PO Not Given QAM [facility] Radiology Results: ITS Impressions Abdomen X-Ray 10/10/24 09:29 IMPRESSION: Nasogastric tube in good position and ready for immediate use. Labs Labs: Laboratory Results - last 24 hr 10/10/24 10/10/24 10/10/24 12:48 18:29 21:31 WBC RBC Hgb 10.1 L Hct 32.0 L MCV MCH MCHC RDW Plt Count MPV % Immature Plt Fraction Sodium Potassium Chloride Carbon Dioxide Anion Gap BUN Creatinine Estim Creat Clear Calc Estimated GFR Glucose POC Capillary Glucose 212 H 179 H Calcium Magnesium Total Bilirubin AST ALT Alkaline Phosphatase Total Protein Albumin 10/11/24 10/11/24 05:37 06:48 WBC 7.2 RBC 3.67 L Hgb 10.9 L Hct 34.7 L MCV 94.6 MCH 29.7 MCHC 31.4 L RDW 17.8 H Plt Count 86 L MPV 10.7 H % Immature Plt Fraction 6.7 Sodium 136 L Potassium 3.5 Chloride 99 Carbon Dioxide 34 H Anion Gap 3 L BUN 17 Creatinine 0.68 L Estim Creat Clear Calc Not Reportable Estimated GFR > 60 Glucose 175 H POC Capillary Glucose 160 H Calcium 9.9 Magnesium 1.7 Total Bilirubin 0.5 AST 29 ALT 15 Alkaline Phosphatase 51 Total Protein 5.8 L Albumin 3.4 L Quality VTE Prophylaxis VTE prophylaxis: mechanical ordered -Patient's previous records reviewed on admission -ER notes reviewed in detail on admission -discussed all findings and current treatment plan with patient/Family/POA -Consultations reviewed for recommendations -Patient's disposition for safe discharge discussed with hospice case manager Dictation performed by [employer] direct speech recognition software, therefore technical account representative variants and typographical errors may occur. Hospitalist MIPS Advance Care Plan I have confirmed that the patient's Advanced Care Plan is present, code status is documented, or surrogate decision maker is listed in patient medical record.: Yes Medication Reconciliation I have utilized all available resources to obtain, update and review the patients current medications (includes all prescriptions, OTC, herbals, cannabis, and nutritional supplements).: Yes The patient is not eligible for med reconciliation; the patient is in a emergent medical situation where delaying treatment would jeopardize the patients health.: No
[2024-10-11] MEDS: FAMOTIDINE 20 MG/2 ML VIAL IV PUSH (11:09)
[2024-10-11] MEDS: HYDROmorphone HCL INJ (*CRX) 2 MG/ML VIAL 1 MG IV PUSH (11:09)
[2024-10-11] MEDS: ONDANSETRON INJ 4 MG/2 ML VIAL IV PUSH ×3 (11:09→21:18)
--- NOTE | 2024-10-11 13:47 | P.CONS_ITS ---
Assessment and Plan Assessment and plan (1) SBO (small bowel obstruction): Code(s): K56.609 - Unspecified intestinal obstruction, unspecified as to partial versus complete obstruction Status: Acute Assessment and Plan: Patient may have partial small-bowel obstruction given CT findings and dilated loops of small bowel and nausea vomiting. She has had an open hysterectomy and open cholecystectomy in the past so she certainly could have adhesions causing a partial small-bowel obstruction. Nasogastric tube needs to be placed decompress the stomach. Supportive management and NPO status. We will plan on getting a water-soluble small bowel follow-through study tomorrow. No evidence of acute surgical abdomen at this time. Continue with treatment non operatively with supportive care. HPI Data of Consult Date/Time: 10/11/24 13:47 Requesting Physician: René Arora MD Primary Care Provider: Dain RendonMD Consult Narrative Reason for consult: Abdominal pain, small-bowel obstruction Narrative: Tyra Justice is a 84 year old female admitted to the hospital with concerns for upper GI bleeding. She in the past has been anemic with dark stools and underwent workup and June of 2024 for anemia with upper and lower endoscopy and capsule endoscopy. No obvious source of bleeding was noted on those studies. Patient has had symptoms for a few days but her daughter states that since June she has been eating better. No bowel movements for [address] scan abdomen pelvis on admission showed possible small bowel obstruction but it was done without IV contrast there was less sensitivity for bowel ischemia. Patient states in the past she had a reaction to IV contrast many years ago. She had episodes of nausea vomiting overnight and so a repeat CT scan was done today as ordered by GI and again showed dilated loops of small bowel with no obvious transition point but ellipse about 3.8cm no perforation or free air is seen. She complains mostly of having pain more on the left mid abdominal region. Her prior abdominal surgical history includes a open hysterectomy and open cholecystectomy in the remote past. Review of Systems 2 Review of Systems: The remainder of the review of systems to include constitutional, HEENT, cardiovascular, respiratory, GI, , integumentary, musculoskeletal, endocrine, immunologic, hematologic, psychiatric, and neurologic are all negative except for which is mentioned above in the HPI. [facility] Past Medical History Medical History Diabetes COPD (chronic obstructive pulmonary disease) Dark stools Weight loss Acute anemia Family History Family History Sibling Family history of heart disease in male family member before age 55 Family history of alcoholism Colon cancer Father Family history of heart disease in male family member before age 55 Family history of lung cancer Heart attack Sibling Diabetes mellitus Mother Cancer of pancreas Other Hypertension Social History Social History Smoking packs per day: 4 Smoking cigarettes per day: 80.0 Years smoked: 60 Smoking pack-years: 240.00 Smoking status: Former smoker Tobacco type: cigarettes Alcohol intake: never Substance use: never Do You Feel Safe in your Home?: Yes Lack of Transportation: No Lack of Food: Never True Current Housing: I Have Housing Concerned About Future Housing: No Difficulty Paying Gas/Electric Bills: No Difficulty Paying for Meds: No Currently Unemployed: No Education: High School Diploma/GED Difficulty w/ Childcare or Family Care: No Spiritual care concerns: Yes Meds Home Medications and Allergies Home Medications ?Medication ?Instructions ?Recorded ?Confirmed ?Type aspirin 81 mg tablet 81 mg PO DAILY 03/23/21 10/10/24 History atorvastatin 40 mg tablet 40 mg PO HS 03/23/21 10/10/24 History calcium 500 mg tablet 1,500 mg PO DAILY 03/23/21 10/10/24 History famotidine 20 mg tablet 20 mg PO BID 03/23/21 10/10/24 History lisinopril 10 mg tablet 10 mg PO DAILY 03/23/21 10/10/24 History metformin 500 mg tablet 500 mg PO BID 03/23/21 10/10/24 History insulin glargine 100 unit/mL 14 unit subcut .HS 05/14/24 10/10/24 History subcutaneous solution (Lantus U-100 Insulin) metoprolol succinate 25 mg 25 mg PO DAILY 06/05/24 10/10/24 History tablet,extended release 24 hr furosemide 20 mg tablet 20 mg PO Q12H PRN edema 10/10/24 10/10/24 History hydrocodone 7.5 mg-acetaminophen 1 tablet PO Q8H 10/10/24 10/10/24 History 325 mg tablet sertraline 50 mg tablet 50 mg PO Q24H 10/10/24 10/10/24 History Allergies Allergy/AdvReac Type Severity Reaction Status Date / Time Iodinated Contrast Media Allergy Severe Stopped Verified 10/10/24 12:54 Breathing/ CARDIAC ARREST empagliflozin (From Allergy Mild unkown Verified 10/10/24 05:40 Jardiance) ioversol Allergy Unknown Unknown Verified 10/10/24 05:40 codeine AdvReac Intermediate NAUSEA/VOMI Verified 10/10/24 05:40 TING Contrast Media Allergy Severe CARDIA/RESP Uncoded 10/10/24 05:40 ARREST Vital Signs Vital Signs - 24 hr 10/10/24 14:00 10/10/24 16:04 10/10/24 20:00 Temperature 36.6 C Pulse Rate 72 72 55 L Respiratory Rate 18 16 Blood Pressure 138/62 Pulse Oximetry 97 97 Oxygen Delivery Nasal Cannula Oxygen Flow Rate 1 Fraction of Inspired Oxygen 24 10/10/24 20:00 10/10/24 20:08 10/10/24 22:00 Temperature 36.7 C Pulse Rate 58 L 55 L Respiratory Rate 16 Blood Pressure 143/61 H Pulse Oximetry 97 97 Oxygen Delivery Nasal Cannula Oxygen Flow Rate 1 Fraction of Inspired Oxygen 24 10/11/24 00:00 10/11/24 04:00 10/11/24 06:00 Temperature 36.7 C Pulse Rate 50 L 54 L 55 L Respiratory Rate 16 Blood Pressure 136/56 L Pulse Oximetry 99 Oxygen Delivery Oxygen Flow Rate Fraction of Inspired Oxygen Exam 2 Const: General: comfortable and no acute distress HENMT: Ears: TM's normal bilaterally Face/Nose/Sinus: Normal nares present Mouth: Yes moist mucous membranes Eyes: General: appearance normal, both eyes and all related structures S clera: sclerae normal Pupils: Equal, round and reactive pupils present E OM: EOMs intact bilaterally Neck: Neck: supple and no JVD Resp: Effort & Inspection: normal respiratory effort Auscultation: clear to auscultation bilaterally Cardio: Rate: regular rate Rhythm: regular rhythm GI: Other: Abdomen is soft and mildly distended. She has some mild tenderness to palpation the left side of the abdomen. No incisional hernias are noted. Well-healed lower midline scar and a right paramedian scar noted. No masses appreciated. No guarding or generalized peritoneal signs. Skin: General skin exam: normal color and no rashes or lesions noted Neuro: General: gait normal Speech: normal speech Motor exam (neuro): 5 /5 motor strength present throughout Sensory Exam: normal sensation Extrem: General: normal to inspection Psych: Mental Status: mental status grossly normal Affect: normal affect Results Labs 10/11/24 05:37 10/11/24 05:37 Labs: Short CBC 10/11/24 Range/Units 05:37 WBC 7.2 (4.5-10.0) K/mm3 Hgb 10.9 L (12.0-15.0) g/dL Hct 34.7 L (37.0-47.0) % Plt Count 86 L (150-375) k/mm3 BMP 10/11/24 05:37 Sodium 136 L Potassium 3.5 Chloride 99 Carbon Dioxide 34 H BUN 17 Creatinine 0.68 L Glucose 175 H Calcium 9.9 Liver Function 10/11/24 Range/Units 05:37 Total Bilirubin 0.5 (0.2-1.3) mg/dL AST 29 (14-36) U/L ALT 15 (6-35) U/L Alkaline Phosphatase 51 (38-126) U/L Albumin 3.4 L (3.5-5.1) g/dL Imaging Radiologist's impression: CT Scan Report Signed Patient: Tyra Justice : 1940 MR#: [id number] Age: 84 Acct:[id number] Loc: [id number] 321-02 ADM Date: 10/10/24Attending Dr: Fran Arora M.D. Ordering Physician: Misha Doyle MD Date of Service: 10/10/24 Procedure(s): CT abdomen pelvis wo con Accession Number(s): [id number] cc: René Arora MD; Justice, Dain Stanford MD; Misha Doyle MD~ CLINICAL INDICATION: Upper GI bleeding COMPARISON: 06/30/2024. TECHNIQUE: Multiple contiguous axial images of the abdomen and pelvis were performed without the administration of intravenous contrast The dose-length product (DLP) was 358.58 mGy-cm. Automated exposure control and iterative reconstruction technique were employed. FINDINGS/OBSERVATIONS: Visualized lower thorax: The bilateral lung bases are clear. The heart is of normal size, without pericardial effusion. Small hiatal hernia is present. Liver: The liver demonstrates homogeneous attenuation and is not enlarged. Gallbladder is surgically absent. Pneumobilia is identified within the liver, primarily the left lobe suggesting prior sphincterotomy. Pancreas: Limited evaluation of the pancreas secondary to the lack of intravenous contrast. Spleen: Punctate calcifications identified within the splenic parenchyma, suggesting prior granulomatous disease. The spleen demonstrates homogeneous attenuation and is not enlarged. Kidneys: The bilateral kidneys are unremarkable, without hydronephrosis or renal calculi. Adrenal glands: Unremarkable. Gastrointestinal tract: Nasogastric tube extends into the stomach. Multiple loops of dilated proximal small bowel with interloop inflammatory change and fluid, findings consistent with small bowel obstruction. Colonic diverticulosis without surrounding inflammatory change Appendix: The appendix is not definitively visualized. However, no pericecal inflammatory change is identified suggest the presence of acute appendicitis. Vasculature: Calcified atherosclerotic disease. Lymph nodes: Limited evaluation without intravenous contrast. Pelvic structures: The bladder is distended, and otherwise unremarkable. The uterus is either atrophic or surgically absent. Body wall and musculoskeletal: Small fat-containing umbilical hernia. Age-appropriate degenerative disease within the lower thoracic and lumbosacral spine. IMPRESSION: Partial small bowel obstruction with air identified in the colon and rectum. Reviewed, dictated and finalized at location A. Please be advised this is a medical document. It is intended for qetq-it-zihs communication. It is written in medical language and may contain unfamiliar abbreviations or verbiage. Medical documents are intended to carry relevant information, facts as evident, and the clinical opinion of the practitioner at the time of the encounter. This report may have been done utilizing a voice recognition system. Attempts have been made to correct errors. However, there may be uncorrected grammatical, spelling, and recognition errors present. The file time of this note does not necessarily represent the time of service. Dictated By: Sahara Nunez MD 10/10/24 0919 Signed By: <Electronically signed by Sahara Nunez MD in [place]> 10/10/24928 CT Scan Report Signed Patient: Tyra Justice : 1940 MR#: [id number] Age: 84 Acct:[id number] Loc: [id number] 321-02 ADM Date: 10/10/24Attending Dr: Fran Arora M.D. Ordering Physician: Minesh Leyva MD Date of Service: 10/11/24 Procedure(s): CT abdomen pelvis wo con Accession Number(s): [id number] cc: René Arora MD; Justice, Dain Stanford MD; Minesh Leyva MD~ CLINICAL INDICATION: Abdominal distention COMPARISON: 10/10/2024, performed for upper GI bleed. TECHNIQUE: Multiple contiguous axial images of the abdomen and pelvis were performed without the administration of intravenous contrast The dose-length product (DLP) was 177.86 mGy-cm. Automated exposure control and iterative reconstruction technique were employed. FINDINGS/OBSERVATIONS: Visualized lower thorax: Interval development of small bilateral pleural effusions, with adjacent compressive atelectasis. The remainder of the bilateral lung bases are clear. The heart is of normal size, with a small pericardial effusion, increased from yesterday's examination. Small hiatal hernia is present which extends into the fluid-filled distended stomach, also an interval change from previous days examination (when NG tube was in place, now removed). Liver: The liver demonstrates homogeneous attenuation and is not enlarged. Interval development of perihepatic free fluid, when compared with previous days examination. Gallbladder and biliary system: The gallbladder is surgically absent. Pancreas: Limited evaluation of the pancreas secondary to the lack of intravenous contrast. Spleen: Punctate calcifications identified within the splenic parenchyma, suggesting prior granulomatous disease. The remainder of the spleen demonstrates otherwise homogeneous attenuation and is not enlarged. Perisplenic fluid is now identified, an interval change from previous days examination. Kidneys: Redemonstration of a 16 mm calculus within the left renal pelvis. The remainder of the bilateral kidneys are otherwise unremarkable, without hydronephrosis or additional renal calculi. Adrenal glands: Unremarkable. Gastrointestinal tract: Redemonstration of multiple loops of dilated fluid-filled small bowel which extends into the pelvis. No discrete transition point is appreciated. Small bowel is extended to a maximal caliber of 3.3 cm. Rectosigmoid diverticulosis and mural thickening is present. Evaluation for the presence or absence of surrounding inflammatory change is limited secondary to the lack of intravenous contrast as well as the lack of intrapelvic fat. Appendix: The appendix is not definitively visualized. However, no pericecal inflammatory change is identified suggest the presence of acute appendicitis. Vasculature: Densely calcified atherosclerotic disease. Lymph nodes: Limited evaluation without intravenous contrast. However, adjacent to the densely calcified abdominal aorta are multiple rounded areas of soft tissue attenuation for which lymphadenopathy is suspected. Pelvic structures: The bladder is only minimally distended, and otherwise unremarkable. The uterus is poorly visualized secondary to the lack of intravenous contrast and intrapelvic fat. Body wall and musculoskeletal: Age-appropriate degenerative disease within the lower thoracic and lumbosacral spines. IMPRESSION: Interval removal of the nasogastric tube when compared with previous examination. Redemonstration of multiple loops of prominent fluid-filled small bowel loops which extend into the pelvis for which small bowel obstruction is suspected. Rectosigmoid diverticulosis and mural thickening with limited evaluation for surrounding inflammatory change secondary to the lack of intravenous contrast and the lack of intrapelvic fat. Retroperitoneal lymphadenopathy is suspected, although detection is limited without intravenous contrast. Perihepatic and perisplenic fluid is now identified, an interval change from previous days examination. Given the culmination of findings (as detailed above) premedication for patient's contrast allergy is recommended with repeat evaluation with intravenous contrast. Reviewed, dictated and finalized at location A. Please be advised this is a medical document. It is intended for nqbb-pe-eqyq communication. It is written in medical language and may contain unfamiliar abbreviations or verbiage. Medical documents are intended to carry relevant information, facts as evident, and the clinical opinion of the practitioner at the time of the encounter. This report may have been done utilizing a voice recognition system. Attempts have been made to correct errors. However, there may be uncorrected grammatical, spelling, and recognition errors present. The file time of this note does not necessarily represent the time of service. Dictated By: Sahara Nunez MD 10/11/24 0955 Signed By: <Electronically signed by Sahara Nunez MD in [place]> 10/11/24 1010
[2024-10-12] VITALS (8 sets, daily range): BP systolic 128–144; BP diastolic 51–75; PULSE 67–96; RESP 16–18; TEMP 36.4–36.9; O2SAT 93–99; BMI 27.7
[2024-10-12] MEDS: HYDROmorphone HCL INJ (*CRX) 2 MG/ML VIAL 1 MG IV PUSH ×2 (05:43→15:29)
[2024-10-12] MEDS: LACTATED RINGERS 1,000 ML 100 ML IV CONT ×2 (05:44→15:35)
[2024-10-12 06:19] LABS: Hematocrit 39.4 % (37.0-47.0); Hemoglobin 12.5 g/dL (12.0-15.0); Immature Platelet Fraction Pct 7.0 % (0.9-11.2); Mean Corpuscular HGB Conc 31.7 g/dl (32-36); Mean Corpuscular Hemoglobin 29.9 pg (26-34); Mean Corpuscular Volume 94.3 fl (80-100); Platelet Count Result 88 k/mm3 (150-375); Red Blood Count 4.18 M/mm3 (4.2-5.4); White Blood Count 9.4 K/mm3 (4.5-10.0)
[2024-10-12 06:31] LABS: Alanine Aminotransferase 15 U/L (6-35); Albumin Level 3.4 g/dL (3.5-5.1); Alkaline Phosphatase 59 U/L (38-126); Anion Gap 8 mmol/L (4-12); Aspartate Amino Transferase 28 U/L (14-36); Bilirubin,Total 0.7 mg/dL (0.2-1.3); Blood Urea Nitrogen 17 mg/dL (7-17); Calcium 9.8 mg/dL (8.4-10.2); Carbon Dioxide 32 mmol/L (22-30); Chloride 99 mmol/L (98-107); Estimated Glomerular Filt Rate > 60; Glucose 150 mg/dL (65-110); Magnesium 1.7 mg/dL (1.6-2.3); Potassium 3.6 mmol/L (3.4-5.0); Sodium 139 mmol/L (137-145); Total Protein 6.0 g/dL (6.3-8.2)
--- NOTE | 2024-10-12 07:17 | P.PNGI_ITS ---
Progress Note: A&P Assessment and Plan (1) SBO (small bowel obstruction): Code(s): K56.609 - Unspecified intestinal obstruction, unspecified as to partial versus complete obstruction Status: Acute Assessment and Plan: The patient's clinical presentation is consistent with small bowel obstruction most likely due to adhesions from prior surgeries (open cholecystectomy, hysterectomy, and other pelvic procedures). Nasogastric output remains high, so we'll continue low intermittent suction and intravenous hydration. We'll closely monitor hemodynamic status and electrolytes. If NG output significantly impr oves, a contrast study via NG tube is planned for tomorrow to further assess the obstruction. Subjective Date/time seen: 10/12/24 07:17 Interval history: The patient feels better, less abdominal distension, nasogastric tube output for 24 hours: 1600 cc. Evaluated by surgery yesterday, appreciate input. Exam Narrative: Abdomen: Bowel sounds present, soft, nontender, less distended than yesterday. No rebound. Rest of the exam unchanged from baseline. Objective Data Vital Signs Vital Signs: Vital Signs - 24 hr 10/11/24 08:00 10/11/24 08:04 10/11/24 12:01 Temperature Pulse Rate 56 L 58 L Respiratory Rate Blood Pressure Pulse Oximetry 98 Oxygen Delivery Nasal Cannula Oxygen Flow Rate 1 Fraction of Inspired Oxygen 10/11/24 14:00 10/11/24 16:04 10/11/24 20:00 Temperature 97.1 F L Pulse Rate 63 65 65 Respiratory Rate 20 20 Blood Pressure 133/56 L Pulse Oximetry 98 98 Oxygen Delivery Nasal Cannula Oxygen Flow Rate 2 Fraction of Inspired Oxygen 24 10/11/24 20:00 10/11/24 22:00 10/12/24 04:00 Temperature 97.2 F L Pulse Rate 62 62 90 Respiratory Rate 18 Blood Pressure 122/42 L Pulse Oximetry 99 Oxygen Delivery Oxygen Flow Rate Fraction of Inspired Oxygen 10/12/24 06:00 Temperature 97.6 F Pulse Rate 67 Respiratory Rate 18 Blood Pressure 133/66 Pulse Oximetry 99 Oxygen Delivery Oxygen Flow Rate Fraction of Inspired Oxygen Intake/Output Intake/Output: Intake & Output 10/09/24 10/10/24 10/11/24 10/12/24 23:59 23:59 23:59 23:59 Intake Total 2360 2320 1000 Output Total 950 1350 Balance 1154 748 2665 Meds/Results Medications: Active Medications Generic Name Dose Route Start Last Admin Trade Name Freq PRN Reason Stop Dose Admin Acetaminophen 650 mg 10/10/24 06:29 Acetaminophen 650 Mg Suppository RECTAL Q4H PRN Pain Rated 5 or Less or Fever Hydrocodone Bitart/Acetaminophen 1 tab 10/11/24 01:58 Hydrocodone/Acetaminophen (*Crx) 7.5-325 Mg Tablet PO Q8HR PRN Pain 6 or greater Aspirin 81 mg 10/10/24 15:10 10/11/24 10:00 Aspirin 81 Mg Enteric Tablet PO 11/10/24 15:09 Not Given DAILY TAMIR Atorvastatin Calcium 40 mg 10/10/24 21:00 10/11/24 21:22 Atorvastatin 40 Mg Tablet PO Not Given HS TAMIR Calcium Carbonate 500 mg 10/10/24 15:10 10/11/24 10:00 Calcium Carbonate (Oscal) 500 Mg Tablet PO 11/10/24 15:09 Not Given DAILY TAMIR Dextrose 12.5 gm 10/10/24 15:02 Dextrose 50% 25 Gm/50 Ml Syringe IV PUSH PRN PRN Hypoglycemia Protocol Furosemide 20 mg 10/10/24 14:59 Furosemide 20 Mg Tablet PO Q12H PRN edema Glucagon 1 mg 10/10/24 15:02 Glucagon For Inj 1 Mg Vial IM PRN PRN Hypoglycemia Protocol Glucose 15 gm 10/10/24 15:02 Glucose Oral Gel 15 Gm Of Glucse In 37.5 Gm Tube PO PRN PRN Hypoglycemia Protocol Hydromorphone HCl 1 mg 10/11/24 09:31 10/12/24 05:43 Hydromorphone Hcl Inj (*Crx) 2 Mg/Ml Vial IV PUSH 1 mg Q3H PRN Administration Pain Rated 7-10 Lactated Ringer's 1,000 mls @ 100 mls/hr 10/10/24 03:55 10/12/24 05:44 Lr - Lactated Ringers Iv IV CONT 100 mls/hr .Q10H TAMIR Administration Dextrose 1,000 mls @ 100 mls/hr 10/10/24 15:02 Dextrose 5% 1,000 Ml IVPB PRN PRN Hypoglycemia Protocol Insulin Glargine 14 units 10/10/24 21:00 10/12/24 01:35 Insulin Glargine (*Bkc) 100 Units/Ml SUB-Q Not Given HS TAMIR Lisinopril 10 mg 10/10/24 15:10 10/11/24 10:00 Lisinopril 10 Mg Tablet PO Not Given DAILY [facility] Metoprolol Succinate 25 mg 10/10/24 15:10 10/11/24 10:00 Metoprolol Succinate Ext Rel 25 Mg Tabcr PO Not Given DAILY [facility] Ondansetron HCl 4 mg 10/10/24 03:52 10/11/24 21:18 Ondansetron Inj 4 Mg/2 Ml Vial IV PUSH 4 mg Q4H PRN Administration Nausea Sertraline HCl 50 mg 10/10/24 15:10 10/11/24 10:00 Sertraline Hcl 50 Mg Tablet PO Not Given QAM [facility] Radiology Results: ITS Impressions Abdomen/Pelvis CT 10/11/24 09:55 IMPRESSION: Interval removal of the nasogastric tube when compared with previous examination. Redemonstration of multiple loops of prominent fluid-filled small bowel loops which extend into the pelvis for which small bowel obstruction is suspected. Rectosigmoid diverticulosis and mural thickening with limited evaluation for surrounding inflammatory change secondary to the lack of intravenous contrast and the lack of intrapelvic fat. Retroperitoneal lymphadenopathy is suspected, although detection is limited without intravenous contrast. Perihepatic and perisplenic fluid is now identified, an interval change from previous days examination. Given the culmination of findings (as detailed above) premedication for patient's contrast allergy is recommended with repeat evaluation with intravenous contrast. Labs Labs: Laboratory Results - last 24 hr 10/11/24 10/12/24 10/12/24 16:45 01:03 05:36 WBC RBC Hgb Hct MCV MCH MCHC RDW Plt Count MPV % Immature Plt Fraction Sodium Potassium Chloride Carbon Dioxide Anion Gap BUN Creatinine Estim Creat Clear Calc Estimated GFR Glucose POC Capillary Glucose 156 H 161 H 166 H Calcium Magnesium Total Bilirubin AST ALT Alkaline Phosphatase Total Protein Albumin 10/12/24 05:40 WBC 9.4 RBC 4.18 L Hgb 12.5 Hct 39.4 MCV 94.3 MCH 29.9 MCHC 31.7 L RDW 17.3 H Plt Count 88 L MPV 12.1 H % Immature Plt Fraction 7.0 Sodium 139 Potassium 3.6 Chloride 99 Carbon Dioxide 32 H Anion Gap 8 BUN 17 Creatinine 0.73 Estim Creat Clear Calc Not Reportable Estimated GFR > 60 Glucose 150 H POC Capillary Glucose Calcium 9.8 Magnesium 1.7 Total Bilirubin 0.7 AST 28 ALT 15 Alkaline Phosphatase 59 Total Protein 6.0 L Albumin 3.4 L
--- NOTE | 2024-10-12 10:08 | P.PNIM_ITS ---
Progress Note: A&P Assessment and Plan (1) SBO (small bowel obstruction): Code(s): K56.609 - Unspecified intestinal obstruction, unspecified as to partial versus complete obstruction Status: Acute Assessment and Plan: patient initially presented with nausea vomiting initial CT abdomen showing partial small bowel obstruction and NG tube was placed and patient was admitted to the medical unit for bowel rest and decompression with a consult to GI. patient had overall improvement with placement of NG tube appeared emesis looked more like gastroenteritis and patient with overall improvement to nausea vo miting requesting to eat. NG tube was then removed however after initiating food patient's nausea vomiting return with mid abdominal pain and further emesis. * small bowel series repeat SBO * General surgery consulted * NG tube for decompression monitor output * pain control with IV Dilaudid * antiemetics * NPO status * IV fluids * Plan for exploratory laparotomy possible bowel resection 10/13/2024 (2) Anemia: Code(s): D64.9 - Anemia, unspecified Status: Acute Assessment and Plan: patient with history of anemia hemoglobin stable at this time * Monitor Hgb no evidence of GIB * Transfuse PRBC if Hgb <7.0 (3) Hypertension: Code(s): I10 - Essential (primary) hypertension Status: Acute Assessment and Plan: patient with mild hypertension * switch patient to IV push metoprolol since she is NPO her oral doses 25 mg daily * BP per unit protocol (4) HLD (hyperlipidemia): Code(s): E78.5 - Hyperlipidemia, unspecified Status: Acute Assessment and Plan: * continue statin when able (5) Diabetes: Code(s): E11.9 - Type 2 diabetes mellitus without complications Status: Acute Assessment and Plan: * patient NPO status q.6 a.c. HS * sliding scale insulin * will hold patient's metformin * hypoglycemic protocol (6) Thrombocytopenia: Code(s): D69.6 - Thrombocytopenia, unspecified Status: Acute Assessment and Plan: Chronic patient has been follow and monitored outpatient by primary: 133 POA dropped to 86 * trend and monitor for bleeding * Transfuse PLT if <15 * recommend f/u outpatient with engagement director Plan Code status: DNR DVT prophylaxis: SCD Stress ulcer prophylaxis: Pepcid IVP BID while NPO PT/OT notes: Disposition: Patient admitted to the medical unit for further evaluation and treatment of SBO GI currently consulted, consulted general surgery, NG tube replaced for decompression. Small bowel series SBO plan for surgery tomorrow 10/13/2024. will need to start TPN or PPN if going to be NPO for an extended period time. Time Spent With Patient Time with patient: 15 - 25 minutes Subjective Date/time seen: 10/12/24 10:08 Interval history: Patient is an 84-year-old female admitted for further evaluation and treatment of SBO. GI and general surgery following 10/12/2024: Patient still with ABD tenderness, no BM no gas. NG tube with moderate amount of output. Small bowel series still showing SBO plan for continued NPO, decompression with NG tube and plan for exploratory laparotomy and possible bowel resection in the morning. Review of Systems Review of Systems: As reviewed above in HPI All systems reviewed & are unremarkable except as noted in HPI and below Exam Narrative: Patient is comfortable, NAD, NG tube to suction HEENT: eyes are clear and none icteric LUNGS:CTA HEART: RR S1S2 ABD: Mild tenderness, soft and less distended. Absent bowel sounds Lower extremities: no edema SKIN: nonjaundiced Neuro: grossly intact. Objective Data Vital Signs Vital Signs: Vital Signs - 24 hr 10/11/24 12:01 10/11/24 14:00 10/11/24 16:04 Temperature 97.1 F L Pulse Rate 58 L 63 65 Respiratory Rate 20 Blood Pressure 133/56 L Pulse Oximetry 98 Oxygen Delivery Oxygen Flow Rate Fraction of Inspired Oxygen 10/11/24 20:00 10/11/24 20:00 10/11/24 22:00 Temperature 97.2 F L Pulse Rate 65 62 62 Respiratory Rate 20 18 Blood Pressure 122/42 L Pulse Oximetry 98 99 Oxygen Delivery Nasal Cannula Oxygen Flow Rate 2 Fraction of Inspired Oxygen 24 10/12/24 04:00 10/12/24 06:00 Temperature 97.6 F Pulse Rate 90 67 Respiratory Rate 18 Blood Pressure 133/66 Pulse Oximetry 99 Oxygen Delivery Oxygen Flow Rate Fraction of Inspired Oxygen Intake/Output Intake/Output: Intake & Output 10/09/24 10/10/24 10/11/24 10/12/24 23:59 23:59 23:59 23:59 Intake Total 2360 2320 1000 Output Total 950 1350 Balance 6350 919 0168 Meds/Results Medications: Active Medications Generic Name Dose Route Start Last Admin Trade Name Freq PRN Reason Stop Dose Admin Acetaminophen 650 mg 10/10/24 06:29 Acetaminophen 650 Mg Suppository RECTAL Q4H PRN Pain Rated 5 or Less or Fever Hydrocodone Bitart/Acetaminophen 1 tab 10/11/24 01:58 Hydrocodone/Acetaminophen (*Crx) 7.5-325 Mg Tablet PO Q8HR PRN Pain 6 or greater Aspirin 81 mg 10/10/24 15:10 10/11/24 10:00 Aspirin 81 Mg Enteric Tablet PO 11/10/24 15:09 Not Given DAILY TAMIR Atorvastatin Calcium 40 mg 10/10/24 21:00 10/11/24 21:22 Atorvastatin 40 Mg Tablet PO Not Given HS TAMIR Calcium Carbonate 500 mg 10/10/24 15:10 10/11/24 10:00 Calcium Carbonate (Oscal) 500 Mg Tablet PO 11/10/24 15:09 Not Given DAILY TAMIR Dextrose 12.5 gm 10/10/24 15:02 Dextrose 50% 25 Gm/50 Ml Syringe IV PUSH PRN PRN Hypoglycemia Protocol Furosemide 20 mg 10/10/24 14:59 Furosemide 20 Mg Tablet PO Q12H PRN edema Glucagon 1 mg 10/10/24 15:02 Glucagon For Inj 1 Mg Vial IM PRN PRN Hypoglycemia Protocol Glucose 15 gm 10/10/24 15:02 Glucose Oral Gel 15 Gm Of Glucse In 37.5 Gm Tube PO PRN PRN Hypoglycemia Protocol Hydromorphone HCl 1 mg 10/11/24 09:31 10/12/24 05:43 Hydromorphone Hcl Inj (*Crx) 2 Mg/Ml Vial IV PUSH 1 mg Q3H PRN Administration Pain Rated 7-10 Lactated Ringer's 1,000 mls @ 100 mls/hr 10/10/24 03:55 10/12/24 05:44 Lr - Lactated Ringers Iv IV CONT 100 mls/hr .Q10H TAMIR Administration Dextrose 1,000 mls @ 100 mls/hr 10/10/24 15:02 Dextrose 5% 1,000 Ml IVPB PRN PRN Hypoglycemia Protocol Insulin Glargine 14 units 10/10/24 21:00 10/12/24 01:35 Insulin Glargine (*Bkc) 100 Units/Ml SUB-Q Not Given HS TAMIR Lisinopril 10 mg 10/10/24 15:10 10/11/24 10:00 Lisinopril 10 Mg Tablet PO Not Given DAILY TAMIR Metoprolol Succinate 25 mg 10/10/24 15:10 10/11/24 10:00 Metoprolol Succinate Ext Rel 25 Mg Tabcr PO Not Given DAILY [facility] Ondansetron HCl 4 mg 10/10/24 03:52 10/11/24 21:18 Ondansetron Inj 4 Mg/2 Ml Vial IV PUSH 4 mg Q4H PRN Administration Nausea Sertraline HCl 50 mg 10/10/24 15:10 10/11/24 10:00 Sertraline Hcl 50 Mg Tablet PO Not Given QAM [facility] Radiology Results: ITS Impressions Abdomen/Pelvis CT 10/11/24 09:55 IMPRESSION: Interval removal of the nasogastric tube when compared with previous examination. Redemonstration of multiple loops of prominent fluid-filled small bowel loops which extend into the pelvis for which small bowel obstruction is suspected. Rectosigmoid diverticulosis and mural thickening with limited evaluation for surrounding inflammatory change secondary to the lack of intravenous contrast and the lack of intrapelvic fat. Retroperitoneal lymphadenopathy is suspected, although detection is limited without intravenous contrast. Perihepatic and perisplenic fluid is now identified, an interval change from previous days examination. Given the culmination of findings (as detailed above) premedication for patient's contrast allergy is recommended with repeat evaluation with intravenous contrast. Labs Labs: Laboratory Results - last 24 hr 10/11/24 10/12/24 10/12/24 16:45 01:03 05:36 WBC RBC Hgb Hct MCV MCH MCHC RDW Plt Count MPV % Immature Plt Fraction Sodium Potassium Chloride Carbon Dioxide Anion Gap BUN Creatinine Estim Creat Clear Calc Estimated GFR Glucose POC Capillary Glucose 156 H 161 H 166 H Calcium Magnesium Total Bilirubin AST ALT Alkaline Phosphatase Total Protein Albumin 10/12/24 05:40 WBC 9.4 RBC 4.18 L Hgb 12.5 Hct 39.4 MCV 94.3 MCH 29.9 MCHC 31.7 L RDW 17.3 H Plt Count 88 L MPV 12.1 H % Immature Plt Fraction 7.0 Sodium 139 Potassium 3.6 Chloride 99 Carbon Dioxide 32 H Anion Gap 8 BUN 17 Creatinine 0.73 Estim Creat Clear Calc Not Reportable Estimated GFR > 60 Glucose 150 H POC Capillary Glucose Calcium 9.8 Magnesium 1.7 Total Bilirubin 0.7 AST 28 ALT 15 Alkaline Phosphatase 59 Total Protein 6.0 L Albumin 3.4 L Quality VTE Prophylaxis VTE prophylaxis: mechanical ordered -Patient's previous records reviewed on admission -ER notes reviewed in detail on admission -discussed all findings and current treatment plan with patient/Family/POA -Consultations reviewed for recommendations -Patient's disposition for safe discharge discussed with case folder Dictation performed by [employer] direct speech recognition software, therefore special delivery messenger variants and typographical errors may occur. Hospitalist MIPS Advance Care Plan I have confirmed that the patient's Advanced Care Plan is present, code status is documented, or surrogate decision maker is listed in patient medical record.: Yes Medication Reconciliation I have utilized all available resources to obtain, update and review the patients current medications (includes all prescriptions, OTC, herbals, cannabis, and nutritional supplements).: Yes The patient is not eligible for med reconciliation; the patient is in a emergent medical situation where delaying treatment would jeopardize the patients health.: No
[2024-10-12] MEDS: ONDANSETRON INJ 4 MG/2 ML VIAL IV PUSH ×2 (11:31→20:07)
--- NOTE | 2024-10-12 15:30 | P.PNGS_ITS ---
Progress Note: A&P Assessment and Plan (1) SBO (small bowel obstruction): Code(s): K56.609 - Unspecified intestinal obstruction, unspecified as to partial versus complete obstruction Status: Acute Assessment and Plan: * Small bowel follow through with water soluble contrast done this morning. She had increased abdominal pain, bloating, and nausea during the test and on the 4 hour images, does not appear that contrast is moving through to the colon, but the Radiologist has not yet read the films. It appears she has a high- grade small bowel obstruction and will require operative management. She appears stable at this time without any clinical signs of bowel ischemia. Will continue with NG tube decompression, bowel rest, and IV fluids overnight today. She will be added onto the surgery schedule tomorrow for exploratory laparotomy, possible bowel resection by Dr. Mitchell. Description of the procedure, risks, benefits, and expected recovery were discussed with the patient and her daughter in detail. We discussed the risk of bleeding, bowel injury, and possible need for a bowel resection. She has also recently become more weak and we discussed the possibility of requiring therapy and possibly rehab after surgery before returning home, where she lives alone. All questions from both the patient and the family were answered. She agrees with proceeding with surgery. I discussed the plan with the Hospitalist as well, who will be adjusting her home medications and switching any possible medications to IV. Plan I have discussed the patient's case and plan of care with Dr. Mitchell. Subjective Subjective Date/Time Seen: 10/12/24 15:30 Patient reports: no new complaints Interval history: Patient had SBFT this morning and had increased generalized abdominal pain, bloating, and nausea after receiving the oral contrast. Nursing gave her Zofran and put her NG back to wall suction. She has had about 600 cc out of her NG since put back to suction and is feeling much better. No flatus or BMs still since admission. Exam Const: General: comfortable and no acute distress Orientation/consciousness: patient oriented x3 GI: Inspection: distended GI Palp: Yes Soft to palpation, Yes Tenderness to palpation present (GI) (diffusely tender) and No Guarding due to palpation present (GI) (no peritoneal signs) Auscultation: absent bowel sounds Objective Data Vital Signs Vital Signs: Vital Signs - 24 hr 10/11/24 16:04 10/11/24 20:00 10/11/24 20:00 Temperature Pulse Rate 65 65 62 Respiratory Rate 20 Blood Pressure Pulse Oximetry 98 Oxygen Delivery Nasal Cannula Oxygen Flow Rate 2 Fraction of Inspired Oxygen 24 10/11/24 22:00 10/12/24 04:00 10/12/24 06:00 Temperature 97.2 F L 97.6 F Pulse Rate 62 90 67 Respiratory Rate 18 18 Blood Pressure 122/42 L 133/66 Pulse Oximetry 99 99 Oxygen Delivery Oxygen Flow Rate Fraction of Inspired Oxygen 10/12/24 08:00 10/12/24 08:00 10/12/24 12:00 Temperature Pulse Rate 94 92 Respiratory Rate Blood Pressure Pulse Oximetry 99 Oxygen Delivery Room Air Oxygen Flow Rate Fraction of Inspired Oxygen 10/12/24 14:00 Temperature 98.4 F Pulse Rate 96 Respiratory Rate 16 Blood Pressure 144/75 H Pulse Oximetry 93 Oxygen Delivery Oxygen Flow Rate Fraction of Inspired Oxygen Intake/Output Intake/Output: Intake & Output 10/09/24 10/10/24 10/11/24 10/12/24 23:59 23:59 23:59 23:59 Intake Total 2360 2320 1000 Output Total 950 1350 Balance 6204 676 7405 Meds/Results Medications: Active Medications Generic Name Dose Route Start Last Admin Trade Name Freq PRN Reason Stop Dose Admin Acetaminophen 650 mg 10/10/24 06:29 Acetaminophen 650 Mg Suppository RECTAL Q4H PRN Pain Rated 5 or Less or Fever Hydrocodone Bitart/Acetaminophen 1 tab 10/11/24 01:58 Hydrocodone/Acetaminophen (*Crx) 7.5-325 Mg Tablet PO Q8HR PRN Pain 6 or greater Aspirin 81 mg 10/10/24 15:10 10/12/24 14:26 Aspirin 81 Mg Enteric Tablet PO 11/10/24 15:09 Not Given DAILY TAMIR Atorvastatin Calcium 40 mg 10/10/24 21:00 10/11/24 21:22 Atorvastatin 40 Mg Tablet PO Not Given HS TAMIR Calcium Carbonate 500 mg 10/10/24 15:10 10/12/24 14:26 Calcium Carbonate (Oscal) 500 Mg Tablet PO 11/10/24 15:09 Not Given DAILY TAMIR Dextrose 12.5 gm 10/10/24 15:02 Dextrose 50% 25 Gm/50 Ml Syringe IV PUSH PRN PRN Hypoglycemia Protocol Furosemide 20 mg 10/10/24 14:59 Furosemide 20 Mg Tablet PO Q12H PRN edema Glucagon 1 mg 07/05/25 15:02 Glucagon For Inj 1 Mg Vial IM PRN PRN Hypoglycemia Protocol Glucose 15 gm 10/10/24 15:02 Glucose Oral Gel 15 Gm Of Glucse In 37.5 Gm Tube PO PRN PRN Hypoglycemia Protocol Hydromorphone HCl 1 mg 10/11/24 09:31 10/12/24 05:43 Hydromorphone Hcl Inj (*Crx) 2 Mg/Ml Vial IV PUSH 1 mg Q3H PRN Administration Pain Rated 7-10 Lactated Ringer's 1,000 mls @ 100 mls/hr 10/10/24 03:55 10/12/24 05:44 Lr - Lactated Ringers Iv IV CONT 100 mls/hr .Q10H TAMIR Administration Dextrose 1,000 mls @ 100 mls/hr 10/10/24 15:02 Dextrose 5% 1,000 Ml IVPB PRN PRN Hypoglycemia Protocol Insulin Glargine 14 units 10/10/24 21:00 10/12/24 01:35 Insulin Glargine (*Bkc) 100 Units/Ml SUB-Q Not Given HS TAMIR Lisinopril 10 mg 10/10/24 15:10 10/12/24 14:26 Lisinopril 10 Mg Tablet PO Not Given DAILY TAMIR Metoprolol Succinate 25 mg 10/10/24 15:10 10/12/24 14:26 Metoprolol Succinate Ext Rel 25 Mg Tabcr PO Not Given DAILY [facility] Ondansetron HCl 4 mg 10/10/24 03:52 10/12/24 11:31 Ondansetron Inj 4 Mg/2 Ml Vial IV PUSH 4 mg Q4H PRN Administration Nausea Sertraline HCl 50 mg 10/10/24 15:10 10/12/24 14:27 Sertraline Hcl 50 Mg Tablet PO Not Given QAM [facility] Radiology Results: ITS Impressions Abdomen/Pelvis CT 10/11/24 09:55 IMPRESSION: Interval removal of the nasogastric tube when compared with previous examination. Redemonstration of multiple loops of prominent fluid-filled small bowel loops which extend into the pelvis for which small bowel obstruction is suspected. Rectosigmoid diverticulosis and mural thickening with limited evaluation for surrounding inflammatory change secondary to the lack of intravenous contrast and the lack of intrapelvic fat. Retroperitoneal lymphadenopathy is suspected, although detection is limited without intravenous contrast. Perihepatic and perisplenic fluid is now identified, an interval change from previous days examination. Given the culmination of findings (as detailed above) premedication for patient's contrast allergy is recommended with repeat evaluation with intravenous contrast. Labs Labs: Laboratory Results - last 24 hr 10/11/24 10/12/24 10/12/24 16:45 01:03 05:36 WBC RBC Hgb Hct MCV MCH MCHC RDW Plt Count MPV % Immature Plt Fraction Sodium Potassium Chloride Carbon Dioxide Anion Gap BUN Creatinine Estim Creat Clear Calc Estimated GFR Glucose POC Capillary Glucose 156 H 161 H 166 H Calcium Magnesium Total Bilirubin AST ALT Alkaline Phosphatase Total Protein Albumin 10/12/24 10/12/24 05:40 12:10 WBC 9.4 RBC 4.18 L Hgb 12.5 Hct 39.4 MCV 94.3 MCH 29.9 MCHC 31.7 L RDW 17.3 H Plt Count 88 L MPV 12.1 H % Immature Plt Fraction 7.0 Sodium 139 Potassium 3.6 Chloride 99 Carbon Dioxide 32 H Anion Gap 8 BUN 17 Creatinine 0.73 Estim Creat Clear Calc Not Reportable Estimated GFR > 60 Glucose 150 H POC Capillary Glucose 163 H Calcium 9.8 Magnesium 1.7 Total Bilirubin 0.7 AST 28 ALT 15 Alkaline Phosphatase 59 Total Protein 6.0 L Albumin 3.4 L
[2024-10-12] MEDS: MAG HYDROX/AL HYDROX/SIMETH 30 ML UDC FEED TUBE ×2 (16:23→20:16)
[2024-10-12] MEDS: FAMOTIDINE 20 MG/2 ML VIAL IV PUSH (20:07)
[2024-10-12] MEDS: METOPROLOL TARTRATE INJ 5 MG/5 ML VIAL 2.5 MG IV PUSH (20:08)
[2024-10-13] VITALS (10 sets, daily range): BP systolic 120–133; BP diastolic 59–71; PULSE 62–90; RESP 16–18; TEMP 36.5–36.8; O2SAT 98–100
[2024-10-13] MEDS: LACTATED RINGERS 1,000 ML 100 ML IV CONT ×2 (04:36→14:50)
[2024-10-13] MEDS: MAG HYDROX/AL HYDROX/SIMETH 30 ML UDC FEED TUBE ×3 (04:38→21:23)
[2024-10-13 06:01] LABS: Hematocrit 34.1 % (37.0-47.0); Hemoglobin 10.6 g/dL (12.0-15.0); Mean Corpuscular HGB Conc 31.1 g/dl (32-36); Mean Corpuscular Hemoglobin 29.8 pg (26-34); Mean Corpuscular Volume 95.8 fl (80-100); Platelet Count Result 82 k/mm3 (150-375); Red Blood Count 3.56 M/mm3 (4.2-5.4); White Blood Count 7.1 K/mm3 (4.5-10.0)
[2024-10-13 06:16] LABS: Alanine Aminotransferase 16 U/L (6-35); Albumin Level 3.5 g/dL (3.5-5.1); Alkaline Phosphatase 53 U/L (38-126); Anion Gap 5 mmol/L (4-12); Aspartate Amino Transferase 26 U/L (14-36); Bilirubin,Total 0.5 mg/dL (0.2-1.3); Blood Urea Nitrogen 25 mg/dL (7-17); Calcium 10.0 mg/dL (8.4-10.2); Carbon Dioxide 37 mmol/L (22-30); Chloride 99 mmol/L (98-107); Estimated Glomerular Filt Rate > 60; Glucose 145 mg/dL (65-110); Magnesium 1.8 mg/dL (1.6-2.3); Potassium 3.4 mmol/L (3.4-5.0); Sodium 141 mmol/L (137-145); Total Protein 6.0 g/dL (6.3-8.2)
--- NOTE | 2024-10-13 07:14 | P.PNGI_ITS ---
Progress Note: A&P Assessment and Plan (1) SBO (small bowel obstruction): Code(s): K56.609 - Unspecified intestinal obstruction, unspecified as to partial versus complete obstruction Status: Acute Assessment and Plan: the patient has a small-bowel obstruction which does not seem to improve dramatically compared to yesterday. However, the small-bowel follow-through obtained Yesterday afternoon revealed at decompressed jejunum and normal transit to the cecum, i.e., 2 hours. Will wait for final decision of surgical team to continue current conservative management versus exploratory laparotomy/laparoscopy. Subjective Date/time seen: 10/13/24 07:14 Interval history: The patient had an NG tube draining of above 900 mL throughout the night. He continued to have intermittent cramping abdominal pain episodes Requiring analgesics. Exam Narrative: the patient looks comfortable. The naso gastric tube still draining significant amounts of brownish fluid. Abdomen: Scant amount of bowel sounds, tender to deep palpation in the epigastric area. Objective Data Vital Signs Vital Signs: Vital Signs - 24 hr 10/12/24 08:00 10/12/24 08:00 10/12/24 12:00 Temperature Pulse Rate 94 92 Respiratory Rate Blood Pressure Pulse Oximetry 99 Oxygen Delivery Room Air Fraction of Inspired Oxygen 10/12/24 14:00 10/12/24 16:00 10/12/24 20:00 Temperature 98.4 F Pulse Rate 96 91 81 Respiratory Rate 16 18 Blood Pressure 144/75 H Pulse Oximetry 93 98 Oxygen Delivery Room Air Fraction of Inspired Oxygen 24 10/12/24 22:00 10/13/24 00:00 10/13/24 04:00 Temperature 98 F Pulse Rate 81 76 85 Respiratory Rate 18 Blood Pressure 128/51 L Pulse Oximetry 98 Oxygen Delivery Fraction of Inspired Oxygen 10/13/24 06:00 Temperature 97.7 F Pulse Rate 77 Respiratory Rate 18 Blood Pressure 123/59 L Pulse Oximetry 100 Oxygen Delivery Fraction of Inspired Oxygen Intake/Output Intake/Output: Intake & Output 10/10/24 10/11/24 10/12/24 10/13/24 23:59 23:59 23:59 23:59 Intake Total 2360 2320 1985 1000 Output Total 950 1350 800 Balance 7052 079 4648 1000 Meds/Results Medications: Active Medications Generic Name Dose Route Start Last Admin Trade Name Freq PRN Reason Stop Dose Admin Acetaminophen 650 mg 07/05/25 06:29 Acetaminophen 650 Mg Suppository RECTAL Q4H PRN Pain Rated 5 or Less or Fever Al Hydrox/Mg Hydrox/Simethicone 30 ml 10/12/24 15:45 10/13/24 04:38 Mag Hydrox/Al Hydrox/Simeth 30 Ml Udc FEED TUBE 30 ml Q8HR TAMIR Administration Aspirin 81 mg 10/10/24 15:10 10/12/24 14:26 Aspirin 81 Mg Enteric Tablet PO 11/10/24 15:09 Not Given DAILY TAMIR Atorvastatin Calcium 40 mg 10/10/24 21:00 10/11/24 21:22 Atorvastatin 40 Mg Tablet PO Not Given HS TAMIR Dextrose 12.5 gm 10/10/24 15:02 Dextrose 50% 25 Gm/50 Ml Syringe IV PUSH PRN PRN Hypoglycemia Protocol Famotidine 20 mg 10/12/24 21:00 10/12/24 20:07 Famotidine 20 Mg/2 Ml Vial IV PUSH 20 mg Q12HR TAMIR Administration Furosemide 20 mg 10/10/24 14:59 Furosemide 20 Mg Tablet PO Q12H PRN edema Glucagon 1 mg 10/10/24 15:02 Glucagon For Inj 1 Mg Vial IM PRN PRN Hypoglycemia Protocol Glucose 15 gm 10/10/24 15:02 Glucose Oral Gel 15 Gm Of Glucse In 37.5 Gm Tube PO PRN PRN Hypoglycemia Protocol Hydromorphone HCl 1 mg 10/11/24 09:31 10/12/24 15:29 Hydromorphone Hcl Inj (*Crx) 2 Mg/Ml Vial IV PUSH 1 mg Q3H PRN Administration Pain Rated 7-10 Lactated Ringer's 1,000 mls @ 100 mls/hr 10/10/24 03:55 10/13/24 04:36 Lr - Lactated Ringers Iv IV CONT 100 mls/hr .Q10H TAMIR Administration Dextrose 1,000 mls @ 100 mls/hr 10/10/24 15:02 Dextrose 5% 1,000 Ml IVPB PRN PRN Hypoglycemia Protocol Insulin Aspart 2 - 5 units 10/12/24 17:00 10/12/24 17:53 Insulin Aspart (*Bkc) 100 Units/Ml SUB-Q Not Given TIDWM TAMIR Protocol Insulin Glargine 14 units 10/10/24 21:00 10/12/24 01:35 Insulin Glargine (*Bkc) 100 Units/Ml SUB-Q Not Given HS TAMIR Lisinopril 10 mg 10/10/24 15:10 10/12/24 14:26 Lisinopril 10 Mg Tablet PO Not Given DAILY TAM[facility] Metoprolol Succinate 25 mg 10/10/24 15:10 10/12/24 14:26 Metoprolol Succinate Ext Rel 25 Mg Tabcr PO Not Given DAILY TAMIR Metoprolol Tartrate 2.5 mg 10/12/24 21:00 10/12/24 20:08 Metoprolol Tartrate Inj 5 Mg/5 Ml Vial IV PUSH 2.5 mg Q12HR TAMIR Administration Ondansetron HCl 4 mg 10/10/24 03:52 10/12/24 20:07 Ondansetron Inj 4 Mg/2 Ml Vial IV PUSH 4 mg Q4H PRN Administration Nausea Sertraline HCl 50 mg 10/10/24 15:10 10/12/24 14:27 Sertraline Hcl 50 Mg Tablet PO Not Given QAM [facility] Radiology Results: ITS Impressions Abdomen/Pelvis CT 10/11/24 09:55 IMPRESSION: Interval removal of the nasogastric tube when compared with previous examination. Redemonstration of multiple loops of prominent fluid-filled small bowel loops which extend into the pelvis for which small bowel obstruction is suspected. Rectosigmoid diverticulosis and mural thickening with limited evaluation for surrounding inflammatory change secondary to the lack of intravenous contrast and the lack of intrapelvic fat. Retroperitoneal lymphadenopathy is suspected, although detection is limited without intravenous contrast. Perihepatic and perisplenic fluid is now identified, an interval change from previous days examination. Given the culmination of findings (as detailed above) premedication for patient's contrast allergy is recommended with repeat evaluation with intravenous contrast. Upper GI and Small Bowel X-Ray 10/12/24 16:57 IMPRESSION: 1. Normal small bowel transit time to the cecum of 2 hours with no frankly dilated loops of small bowel to suggest obstruction. 2. Large amount of residual contrast within the stomach on the 4 hour delayed images suggestive of gastroparesis. 3. Unchanged 1.6 cm left renal stone. Labs Labs: Laboratory Results - last 24 hr 10/12/24 10/12/24 10/13/24 12:10 17:51 05:49 WBC 7.1 RBC 3.56 L Hgb 10.6 L Hct 34.1 L MCV 95.8 MCH 29.8 MCHC 31.1 L RDW 17.4 H Plt Count 82 L MPV 11.8 H Sodium 141 Potassium 3.4 Chloride 99 Carbon Dioxide 37 H Anion Gap 5 BUN 25 H Creatinine 0.71 Estim Creat Clear Calc Not Reportable Estimated GFR > 60 Glucose 145 H POC Capillary Glucose 163 H 182 H Calcium 10.0 Magnesium 1.8 Total Bilirubin 0.5 AST 26 ALT 16 Alkaline Phosphatase 53 Total Protein 6.0 L Albumin 3.5
[2024-10-13] MEDS: ONDANSETRON INJ 4 MG/2 ML VIAL IV PUSH (08:16)
[2024-10-13] MEDS: POTASSIUM CHLORIDE INJ 40 MEQ in SODIUM CHLORIDE 0.9% IV 500 ML 130 MEQ IVPB (08:17)
[2024-10-13] MEDS: LIDOCAINE 5% PATCH 1 PATCH TRANSDERM (09:00)
[2024-10-13] MEDS: METOPROLOL TARTRATE INJ 5 MG/5 ML VIAL 2.5 MG IV PUSH ×2 (10:40→21:23)
[2024-10-13] MEDS: FAMOTIDINE 20 MG/2 ML VIAL IV PUSH ×2 (10:40→21:23)
[2024-10-13] MEDS: levoFLOXacin 750 MG/D5W 150 ML 750 MG/150 ML BAG 100 MG IVPB (10:41)
--- NOTE | 2024-10-13 10:46 | P.PNIM_ITS ---
Progress Note: A&P Assessment and Plan (1) SBO (small bowel obstruction): Code(s): K56.609 - Unspecified intestinal obstruction, unspecified as to partial versus complete obstruction Status: Acute Assessment and Plan: patient initially presented with nausea vomiting initial CT abdomen showing partial small bowel obstruction and NG tube was placed and patient was admitted to the medical unit for bowel rest and decompression with a consult to GI. patient had overall improvement with placement of NG tube appeared emesis looked more like gastroenteritis and patient with overall improvement to nausea vo miting requesting to eat. NG tube was then removed however after initiating food patient's nausea vomiting return with mid abdominal pain and further emesis. * small bowel series repeat SBO * General surgery consulted * NG tube for decompression monitor output * pain control with IV Dilaudid * antiemetics * NPO status * IV fluids * Plan for exploratory laparotomy possible bowel resection 10/13/2024 (2) Anemia: Code(s): D64.9 - Anemia, unspecified Status: Acute Assessment and Plan: patient with history of anemia hemoglobin stable at this time * Monitor Hgb no evidence of GIB * Transfuse PRBC if Hgb <7.0 (3) Hypertension: Code(s): I10 - Essential (primary) hypertension Status: Acute Assessment and Plan: patient with mild hypertension * switch patient to IV push metoprolol since she is NPO her oral doses 25 mg daily * BP per unit protocol (4) HLD (hyperlipidemia): Code(s): E78.5 - Hyperlipidemia, unspecified Status: Acute Assessment and Plan: * continue statin when able (5) Diabetes: Code(s): E11.9 - Type 2 diabetes mellitus without complications Status: Acute Assessment and Plan: * patient NPO status q.6 a.c. 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 Small bowel series SBO plan for surgery today, will need to start TPN or PPN if going to be NPO for an extended period time. Subjective Date/time seen: 10/13/24 10:46 Interval history: Patient is an 84-year-old female admitted for further evaluation and treatment of SBO. GI and general surgery following 10/13/2024: Patient still with ABD tenderness, no BM no gas. NG tube with moderate amount of output. Small bowel series still showing SBO plan for continued NPO, decompression with NG tube and plan for exploratory laparotomy and possible bowel resection, patient will be seen by general surgery and further rec ommendation to follow, patient c/o low back pain, will apply Lidoderm patches. Review of Systems Review of Systems: As reviewed above in HPI All systems reviewed & are unremarkable except as noted in HPI and below Exam Narrative: Patient is comfortable, NAD, NG tube to suction HEENT: eyes are clear and none icteric LUNGS:CTA HEART: RR S1S2 ABD: Mild tenderness, soft and less distended. Absent bowel sounds Lower extremities: no edema SKIN: nonjaundiced Neuro: grossly intact. Objective Data Vital Signs Vital Signs: Vital Signs - 24 hr 10/12/24 12:00 10/12/24 14:00 10/12/24 16:00 Temperature 36.9 C Pulse Rate 92 96 91 Respiratory Rate 16 Blood Pressure 144/75 H Pulse Oximetry 93 Oxygen Delivery Fraction of Inspired Oxygen 10/12/24 20:00 10/12/24 22:00 10/13/24 00:00 Temperature 36.6 C Pulse Rate 81 81 76 Respiratory Rate 18 18 Blood Pressure 128/51 L Pulse Oximetry 98 98 Oxygen Delivery Room Air Fraction of Inspired Oxygen 24 10/13/24 04:00 10/13/24 06:00 10/13/24 10:40 Temperature 36.5 C Pulse Rate 85 77 77 Respiratory Rate 18 Blood Pressure 123/59 L Pulse Oximetry 100 Oxygen Delivery Fraction of Inspired Oxygen Intake/Output Intake/Output: Intake & Output 10/10/24 10/11/24 10/12/24 10/13/24 23:59 23:59 23:59 23:59 Intake Total 2360 2320 1985 1000 Output Total 950 1350 800 Balance 7931 773 3184 1000 Meds/Results Medications: Active Medications Generic Name Dose Route Start Last Admin Trade Name Freq PRN Reason Stop Dose Admin Acetaminophen 650 mg 10/10/24 06:29 Acetaminophen 650 Mg Suppository RECTAL Q4H PRN Pain Rated 5 or Less or Fever Al Hydrox/Mg Hydrox/Simethicone 30 ml 10/12/24 15:45 10/13/24 04:38 Mag Hydrox/Al Hydrox/Simeth 30 Ml Udc FEED TUBE 30 ml Q8HR TAMIR Administration Aspirin 81 mg 10/10/24 15:10 10/12/24 14:26 Aspirin 81 Mg Enteric Tablet PO 11/10/24 15:09 Not Given DAILY TAMIR Atorvastatin Calcium 40 mg 10/10/24 21:00 10/11/24 21:22 Atorvastatin 40 Mg Tablet PO Not Given HS TAMIR Dextrose 12.5 gm 10/10/24 15:02 Dextrose 50% 25 Gm/50 Ml Syringe IV PUSH PRN PRN Hypoglycemia Protocol Famotidine 20 mg 10/12/24 21:00 10/13/24 10:40 Famotidine 20 Mg/2 Ml Vial IV PUSH 20 mg Q12HR TAMIR Administration Furosemide 20 mg 10/10/24 14:59 Furosemide 20 Mg Tablet PO Q12H PRN edema Glucagon 1 mg 10/10/24 15:02 Glucagon For Inj 1 Mg Vial IM PRN PRN Hypoglycemia Protocol Glucose 15 gm 10/10/24 15:02 Glucose Oral Gel 15 Gm Of Glucse In 37.5 Gm Tube PO PRN PRN Hypoglycemia Protocol Hydromorphone HCl 1 mg 10/11/24 09:31 10/12/24 15:29 Hydromorphone Hcl Inj (*Crx) 2 Mg/Ml Vial IV PUSH 1 mg Q3H PRN Administration Pain Rated 7-10 Lactated Ringer's 1,000 mls @ 100 mls/hr 10/10/24 03:55 10/13/24 04:36 Lr - Lactated Ringers Iv IV CONT 100 mls/hr .Q10H TAMIR Administration Dextrose 1,000 mls @ 100 mls/hr 10/10/24 15:02 Dextrose 5% 1,000 Ml IVPB PRN PRN Hypoglycemia Protocol Potassium Chloride 40 meq/ 520 mls @ 130 mls/hr 10/13/24 07:42 10/13/24 08:17 Sodium Chloride IVPB 10/13/24 11:41 130 mls/hr ONCE ONE Administration Levofloxacin/Dextrose 750 mg in 150 mls @ 100 mls/hr 10/15/24 09:00 Levaquin 750 Mg/D5w 150 Ml IVPB Q48H [facility] Insulin Aspart 2 - 5 units 10/12/24 17:00 10/13/24 08:17 Insulin Aspart (*Bkc) 100 Units/Ml SUB-Q Not Given TIDWM [facility] Protocol Insulin Glargine 14 units 10/10/24 21:00 10/12/24 01:35 Insulin Glargine (*Bkc) 100 Units/Ml SUB-Q Not Given HS [facility] Lidocaine 1 patch 10/13/24 09:00 10/13/24 09:00 Lidocaine 5% Patch TRANSDERM 1 patch DAILY TAMIR Administration Lisinopril 10 mg 10/10/24 15:10 10/12/24 14:26 Lisinopril 10 Mg Tablet PO Not Given DAILY TAMIR Metoprolol Succinate 25 mg 10/10/24 15:10 10/12/24 14:26 Metoprolol Succinate Ext Rel 25 Mg Tabcr PO Not Given DAILY [facility] Metoprolol Tartrate 2.5 mg 10/12/24 21:00 10/13/24 10:40 Metoprolol Tartrate Inj 5 Mg/5 Ml Vial IV PUSH 2.5 mg Q12HR TAMIR Administration Ondansetron HCl 4 mg 10/10/24 03:52 10/13/24 08:16 Ondansetron Inj 4 Mg/2 Ml Vial IV PUSH 4 mg Q4H PRN Administration Nausea Sertraline HCl 50 mg 10/10/24 15:10 10/12/24 14:27 Sertraline Hcl 50 Mg Tablet PO Not Given QAM [facility] Radiology Results: ITS Impressions Abdomen/Pelvis CT 10/11/24 09:55 IMPRESSION: Interval removal of the nasogastric tube when compared with previous examination. Redemonstration of multiple loops of prominent fluid-filled small bowel loops which extend into the pelvis for which small bowel obstruction is suspected. Rectosigmoid diverticulosis and mural thickening with limited evaluation for surrounding inflammatory change secondary to the lack of intravenous contrast and the lack of intrapelvic fat. Retroperitoneal lymphadenopathy is suspected, although detection is limited without intravenous contrast. Perihepatic and perisplenic fluid is now identified, an interval change from previous days examination. Given the culmination of findings (as detailed above) premedication for patient's contrast allergy is recommended with repeat evaluation with intravenous contrast. Upper GI and Small Bowel X-Ray 10/12/24 16:57 IMPRESSION: 1. Normal small bowel transit time to the cecum of 2 hours with no frankly dilated loops of small bowel to suggest obstruction. 2. Large amount of residual contrast within the stomach on the 4 hour delayed images suggestive of gastroparesis. 3. Unchanged 1.6 cm left renal stone. Abdomen X-Ray 10/13/24 09:46 IMPRESSION: Indeterminate loop of likely superimposed small bowel within the right hemipelvis with additional contrast now opacifying the ascending, transverse and descending colons Labs Labs: Laboratory Results - last 24 hr 10/12/24 10/12/24 10/13/24 12:10 17:51 05:49 WBC 7.1 RBC 3.56 L Hgb 10.6 L Hct 34.1 L MCV 95.8 MCH 29.8 MCHC 31.1 L RDW 17.4 H Plt Count 82 L MPV 11.8 H Sodium 141 Potassium 3.4 Chloride 99 Carbon Dioxide 37 H Anion Gap 5 BUN 25 H Creatinine 0.71 Estim Creat Clear Calc Not Reportable Estimated GFR > 60 Glucose 145 H POC Capillary Glucose 163 H 182 H Calcium 10.0 Magnesium 1.8 Total Bilirubin 0.5 AST 26 ALT 16 Alkaline Phosphatase 53 Total Protein 6.0 L Albumin 3.5 Quality VTE Prophylaxis VTE prophylaxis: mechanical ordered
[2024-10-13] MEDS: HYDROmorphone HCL INJ (*CRX) 2 MG/ML VIAL 1 MG IV PUSH ×3 (12:13→21:30)
--- NOTE | 2024-10-13 12:40 | P.PNGS_ITS ---
Progress Note: A&P Assessment and Plan (1) SBO (small bowel obstruction): Code(s): K56.609 - Unspecified intestinal obstruction, unspecified as to partial versus complete obstruction Status: Acute Assessment and Plan: * The Radiologist read the SBFT yesterday as contrast within the stomach at 4 hours images c/w gastroparesis with some progression of the contrast through the small bowel around 2 hours. This would typically argue against a high- grade small bowel obstruction, although she is still not having any bowel function. Obstructive series ordered today and showed contrast advancing through to the distal colon. She is still having some abdominal pain, but appears stable. Her WBC count is normal and she has no peritoneal signs on exam. We will cancel her surgery today and try giving her more time. She may have a partial obstruction. Will start an NG tube clamping trial today. Continue bowel rest and IV fluids. Discussed with the patient that if this does not resolve with conservative measures, then she could still require surgical exploration. Plan I have discussed the patient's case and plan of care with Dr. Mitchell. Subjective Subjective Date/Time Seen: 10/13/24 12:40 Patient reports: no new complaints, no flatus and no bowel movement Interval history: Patient complaining of some LLQ pain. She has a lidocaine patch in place, which has not helped, and has not received any IV pain medication today. She has not had any bowel function since the SBFT yesterday. Plain films show contrast advancing through the colon. Exam Const: General: comfortable and no acute distress GI: Inspection: other (mildly distended) GI Palp: Yes Soft to palpation, Yes Tenderness to palpation present (GI) (diffusely tender) and No Guarding due to palpation present (GI) (no peritoneal signs) Auscultation: Hypoactive bowel sounds present (bowels sounds sound more active today) Objective Data Vital Signs Vital Signs: Vital Signs - 24 hr 10/12/24 14:00 10/12/24 16:00 10/12/24 20:00 Temperature 98.4 F Pulse Rate 96 91 81 Respiratory Rate 16 18 Blood Pressure 144/75 H Pulse Oximetry 93 98 Oxygen Delivery Room Air Fraction of Inspired Oxygen 24 10/12/24 22:00 10/13/24 00:00 10/13/24 04:00 Temperature 98 F Pulse Rate 81 76 85 Respiratory Rate 18 Blood Pressure 128/51 L Pulse Oximetry 98 Oxygen Delivery Fraction of Inspired Oxygen 10/13/24 06:00 10/13/24 10:40 Temperature 97.7 F Pulse Rate 77 77 Respiratory Rate 18 Blood Pressure 123/59 L Pulse Oximetry 100 Oxygen Delivery Fraction of Inspired Oxygen Intake/Output Intake/Output: Intake & Output 10/10/24 10/11/24 10/12/24 10/13/24 23:59 23:59 23:59 23:59 Intake Total 2360 2320 1985 1000 Output Total 950 1350 800 Balance 5839 712 6175 1000 Meds/Results Medications: Active Medications Generic Name Dose Route Start Last Admin Trade Name Freq PRN Reason Stop Dose Admin Acetaminophen 650 mg 10/10/24 06:29 Acetaminophen 650 Mg Suppository RECTAL Q4H PRN Pain Rated 5 or Less or Fever Al Hydrox/Mg Hydrox/Simethicone 30 ml 10/12/24 15:45 10/13/24 04:38 Mag Hydrox/Al Hydrox/Simeth 30 Ml Udc FEED TUBE 30 ml Q8HR TAMIR Administration Aspirin 81 mg 10/10/24 15:10 10/12/24 14:26 Aspirin 81 Mg Enteric Tablet PO 11/10/24 15:09 Not Given DAILY TAMIR Atorvastatin Calcium 40 mg 10/10/24 21:00 10/11/24 21:22 Atorvastatin 40 Mg Tablet PO Not Given HS TAMIR Dextrose 12.5 gm 10/10/24 15:02 Dextrose 50% 25 Gm/50 Ml Syringe IV PUSH PRN PRN Hypoglycemia Protocol Famotidine 20 mg 10/12/24 21:00 10/13/24 10:40 Famotidine 20 Mg/2 Ml Vial IV PUSH 20 mg Q12HR TAMIR Administration Furosemide 20 mg 10/10/24 14:59 Furosemide 20 Mg Tablet PO Q12H PRN edema Glucagon 1 mg 10/10/24 15:02 Glucagon For Inj 1 Mg Vial IM PRN PRN Hypoglycemia Protocol Glucose 15 gm 10/10/24 15:02 Glucose Oral Gel 15 Gm Of Glucse In 37.5 Gm Tube PO PRN PRN Hypoglycemia Protocol Hydromorphone HCl 1 mg 10/11/24 09:31 10/13/24 12:13 Hydromorphone Hcl Inj (*Crx) 2 Mg/Ml Vial IV PUSH 1 mg Q3H PRN Administration Pain Rated 7-10 Lactated Ringer's 1,000 mls @ 100 mls/hr 10/10/24 03:55 10/13/24 04:36 Lr - Lactated Ringers Iv IV CONT 100 mls/hr .Q10H TAMIR Administration Dextrose 1,000 mls @ 100 mls/hr 10/10/24 15:02 Dextrose 5% 1,000 Ml IVPB PRN PRN Hypoglycemia Protocol Levofloxacin/Dextrose 750 mg in 150 mls @ 100 mls/hr 10/15/24 09:00 Levaquin 750 Mg/D5w 150 Ml IVPB Q48H [facility] Insulin Aspart 2 - 5 units 10/12/24 17:00 10/13/24 08:17 Insulin Aspart (*Bkc) 100 Units/Ml SUB-Q Not Given TIDWM [facility] Protocol Insulin Glargine 14 units 10/10/24 21:00 10/12/24 01:35 Insulin Glargine (*Bkc) 100 Units/Ml SUB-Q Not Given HS [facility] Lidocaine 1 patch 10/13/24 09:00 10/13/24 09:00 Lidocaine 5% Patch TRANSDERM 1 patch DAILY [facility] Administration Lisinopril 10 mg 10/10/24 15:10 10/12/24 14:26 Lisinopril 10 Mg Tablet PO Not Given DAILY TAMIR Metoprolol Succinate 25 mg 10/10/24 15:10 10/12/24 14:26 Metoprolol Succinate Ext Rel 25 Mg Tabcr PO Not Given DAILY [facility] Metoprolol Tartrate 2.5 mg 10/12/24 21:00 10/13/24 10:40 Metoprolol Tartrate Inj 5 Mg/5 Ml Vial IV PUSH 2.5 mg Q12HR [facility] Administration Ondansetron HCl 4 mg 10/10/24 03:52 10/13/24 08:16 Ondansetron Inj 4 Mg/2 Ml Vial IV PUSH 4 mg Q4H PRN Administration Nausea Sertraline HCl 50 mg 10/10/24 15:10 10/12/24 14:27 Sertraline Hcl 50 Mg Tablet PO Not Given QAM [facility] Radiology Results: ITS Impressions Abdomen/Pelvis CT 10/11/24 09:55 IMPRESSION: Interval removal of the nasogastric tube when compared with previous examination. Redemonstration of multiple loops of prominent fluid-filled small bowel loops which extend into the pelvis for which small bowel obstruction is suspected. Rectosigmoid diverticulosis and mural thickening with limited evaluation for surrounding inflammatory change secondary to the lack of intravenous contrast and the lack of intrapelvic fat. Retroperitoneal lymphadenopathy is suspected, although detection is limited without intravenous contrast. Perihepatic and perisplenic fluid is now identified, an interval change from previous days examination. Given the culmination of findings (as detailed above) premedication for patient's contrast allergy is recommended with repeat evaluation with intravenous contrast. Upper GI and Small Bowel X-Ray 10/12/24 16:57 IMPRESSION: 1. Normal small bowel transit time to the cecum of 2 hours with no frankly dilated loops of small bowel to suggest obstruction. 2. Large amount of residual contrast within the stomach on the 4 hour delayed images suggestive of gastroparesis. 3. Unchanged 1.6 cm left renal stone. Abdomen X-Ray 10/13/24 09:46 IMPRESSION: Indeterminate loop of likely superimposed small bowel within the right hemipelvis with additional contrast now opacifying the ascending, transverse and descending colons Labs Labs: Laboratory Results - last 24 hr 10/12/24 10/12/24 10/13/24 12:10 17:51 05:49 WBC 7.1 RBC 3.56 L Hgb 10.6 L Hct 34.1 L MCV 95.8 MCH 29.8 MCHC 31.1 L RDW 17.4 H Plt Count 82 L MPV 11.8 H Sodium 141 Potassium 3.4 Chloride 99 Carbon Dioxide 37 H Anion Gap 5 BUN 25 H Creatinine 0.71 Estim Creat Clear Calc Not Reportable Estimated GFR > 60 Glucose 145 H POC Capillary Glucose 163 H 182 H Calcium 10.0 Magnesium 1.8 Total Bilirubin 0.5 AST 26 ALT 16 Alkaline Phosphatase 53 Total Protein 6.0 L Albumin 3.5 10/13/24 12:25 WBC RBC Hgb Hct MCV MCH MCHC RDW Plt Count MPV Sodium Potassium Chloride Carbon Dioxide Anion Gap BUN Creatinine Estim Creat Clear Calc Estimated GFR Glucose POC Capillary Glucose 148 H Calcium Magnesium Total Bilirubin AST ALT Alkaline Phosphatase Total Protein Albumin
--- NOTE | 2024-10-13 13:00 | PC.NURSE ---
1235 NG tube advanced 5 cm, turned suction to high regular to remove contents of stomach, then clamped for six [address] [facility] telephone order. HOB > 30 degrees. Suction to be resumed at 1835.
[2024-10-14] VITALS (14 sets, daily range): BP systolic 121–139; BP diastolic 49–57; PULSE 52–96; RESP 14–18; TEMP 36.2–36.8; O2SAT 90–100
[2024-10-14] MEDS: LACTATED RINGERS 1,000 ML 100 ML IV CONT ×2 (02:15→11:33)
[2024-10-14] MEDS: MAG HYDROX/AL HYDROX/SIMETH 30 ML UDC FEED TUBE ×3 (05:29→22:00)
[2024-10-14 06:12] LABS: Hematocrit 31.4 % (37.0-47.0); Hemoglobin 9.5 g/dL (12.0-15.0); Immature Platelet Fraction Pct 7.3 % (0.9-11.2); Mean Corpuscular HGB Conc 30.3 g/dl (32-36); Mean Corpuscular Hemoglobin 29.7 pg (26-34); Mean Corpuscular Volume 98.1 fl (80-100); Platelet Count Result 69 k/mm3 (150-375); Red Blood Count 3.20 M/mm3 (4.2-5.4); White Blood Count 4.9 K/mm3 (4.5-10.0)
[2024-10-14 06:33] LABS: Alanine Aminotransferase 12 U/L (6-35); Albumin Level 2.9 g/dL (3.5-5.1); Alkaline Phosphatase 46 U/L (38-126); Anion Gap 5 mmol/L (4-12); Aspartate Amino Transferase 25 U/L (14-36); Bilirubin,Total 0.3 mg/dL (0.2-1.3); Blood Urea Nitrogen 19 mg/dL (7-17); Calcium 9.6 mg/dL (8.4-10.2); Carbon Dioxide 34 mmol/L (22-30); Chloride 103 mmol/L (98-107); Estimated Glomerular Filt Rate > 60; Glucose 97 mg/dL (65-110); Magnesium 2.0 mg/dL (1.6-2.3); Potassium 3.7 mmol/L (3.4-5.0); Sodium 142 mmol/L (137-145); Total Protein 5.4 g/dL (6.3-8.2)
[2024-10-14] MEDS: FAMOTIDINE 20 MG/2 ML VIAL IV PUSH ×2 (08:14→20:58)
[2024-10-14] MEDS: LIDOCAINE 5% PATCH 1 PATCH TRANSDERM (08:14)
[2024-10-14] MEDS: METOPROLOL TARTRATE INJ 5 MG/5 ML VIAL 2.5 MG IV PUSH ×2 (08:16→20:58)
[2024-10-14] MEDS: HYDROmorphone HCL INJ (*CRX) 2 MG/ML VIAL 1 MG IV PUSH ×2 (08:21→23:04)
[2024-10-14] MEDS: ONDANSETRON INJ 4 MG/2 ML VIAL IV PUSH (08:27)
--- NOTE | 2024-10-14 11:24 | PM.PNGS ---
Progress Note: A&P Assessment and Plan (1) SBO (small bowel obstruction): Code(s): K56.609 - Unspecified intestinal obstruction, unspecified as to partial versus complete obstruction Status: Acute Assessment and Plan: Patient is still having some abdominal pain, but appears stable. Small bowel movements last night. Her WBC count is normal and she has no peritoneal signs on exam. Continue bowel rest and IV fluids. Unsure if NG tube was clamped overnight. Will continue clamping trial today. Discussed with the patient that if this does not resolve with conservative measures, then she could still require surgical exploration. Plan I have discussed the patient's case and plan of care with Dr. Mitchell. Subjective Subjective Date/Time Seen: 10/14/24 11:24 Patient reports: no new complaints, still having pain and bowel movement Interval history: Patient still complains of diffuse abdominal pain today. She also notes left flank pooching. She had some nausea and possible dry-heaving this morning while NG was still on suction. This may be d/t narcotic pain medication administration. Patient states that she was able to sleep well last night, which she was previously unable to do. Unsure if NG tube was ever clamped overnight, per nursing report. 550 mL output overnight. Day nurse clamped NG this morning and patient has been tolerating it well thus far with no nausea or vomiting. Up in chair currently. Small bowel movements last night per nursing staff, but none charted. Exam GI: GI Palp: Yes Tenderness to palpation present (GI) (diffuse tenderness throughout mid-abdomen. Left side tenderness) Auscultation: absent bowel sounds and Hypoactive bowel sounds present (bowels sounds sound more active today) Other: Abdomen is soft and mildly distended. She has some mild tenderness to palpation the left side of the abdomen. No incisional hernias are noted. Well-healed lower midline scar and a right paramedian scar noted. No masses appreciated. No guarding or generalized peritoneal signs. Objective Data Vital Signs Vital Signs: Vital Signs - 24 hr 10/13/24 12:00 10/13/24 13:57 10/13/24 16:00 Temperature 98.2 F Pulse Rate 66 66 62 Respiratory Rate 16 Blood Pressure 120/65 Pulse Oximetry 99 Oxygen Delivery Oxygen Flow Rate 10/13/24 20:00 10/13/24 20:00 10/13/24 21:20 Temperature 98.2 F Pulse Rate 73 73 Respiratory Rate 18 Blood Pressure 133/71 Pulse Oximetry 98 Oxygen Delivery Room Air Oxygen Flow Rate 10/14/24 00:00 10/14/24 04:00 10/14/24 06:00 Temperature 97.1 F L Pulse Rate 57 L 59 L 96 Respiratory Rate 18 Blood Pressure 132/49 L Pulse Oximetry 90 Oxygen Delivery Oxygen Flow Rate 10/14/24 08:00 10/14/24 08:00 10/14/24 08:16 Temperature Pulse Rate 52 L 70 Respiratory Rate Blood Pressure Pulse Oximetry 94 Oxygen Delivery Nasal Cannula Oxygen Flow Rate 2 10/14/24 10:33 Temperature Pulse Rate Respiratory Rate Blood Pressure Pulse Oximetry 96 Oxygen Delivery Nasal Cannula Oxygen Flow Rate 3 Intake/Output Intake/Output: Intake & Output 10/11/24 10/12/24 10/13/24 10/14/24 23:59 23:59 23:59 23:59 Intake Total 2320 1985 1999 1000 Output Total 1350 800 750 Balance 970 1185 1999 250 Meds/Results Medications: Active Medications Generic Name Dose Route Start Last Admin Trade Name Freq PRN Reason Stop Dose Admin Acetaminophen 650 mg 10/10/24 06:29 Acetaminophen 650 Mg Suppository RECTAL Q4H PRN Pain Rated 5 or Less or Fever Al Hydrox/Mg Hydrox/Simethicone 30 ml 10/12/24 15:45 10/14/24 05:29 Mag Hydrox/Al Hydrox/Simeth 30 Ml Udc FEED TUBE 30 ml Q8HR TAMIR Administration Aspirin 81 mg 10/10/24 15:10 10/12/24 14:26 Aspirin 81 Mg Enteric Tablet PO 11/10/24 15:09 Not Given DAILY TAMIR Atorvastatin Calcium 40 mg 10/10/24 21:00 10/11/24 21:22 Atorvastatin 40 Mg Tablet PO Not Given HS TAMIR Dextrose 12.5 gm 10/10/24 15:02 Dextrose 50% 25 Gm/50 Ml Syringe IV PUSH PRN PRN Hypoglycemia Protocol Famotidine 20 mg 10/12/24 21:00 10/14/24 08:14 Famotidine 20 Mg/2 Ml Vial IV PUSH 20 mg Q12HR TAMIR Administration Furosemide 20 mg 10/10/24 14:59 Furosemide 20 Mg Tablet PO Q12H PRN edema Glucagon 1 mg 10/10/24 15:02 Glucagon For Inj 1 Mg Vial IM PRN PRN Hypoglycemia Protocol Glucose 15 gm 10/10/24 15:02 Glucose Oral Gel 15 Gm Of Glucse In 37.5 Gm Tube PO PRN PRN Hypoglycemia Protocol Hydromorphone HCl 1 mg 10/11/24 09:31 10/14/24 08:21 Hydromorphone Hcl Inj (*Crx) 2 Mg/Ml Vial IV PUSH 1 mg Q3H PRN Administration Pain Rated 7-10 Lactated Ringer's 1,000 mls @ 100 mls/hr 10/10/24 03:55 10/14/24 02:15 Lr - Lactated Ringers Iv IV CONT 100 mls/hr .Q10H TAMIR Administration Dextrose 1,000 mls @ 100 mls/hr 10/10/24 15:02 Dextrose 5% 1,000 Ml IVPB PRN PRN Hypoglycemia Protocol Levofloxacin/Dextrose 750 mg in 150 mls @ 100 mls/hr 10/15/24 09:00 Levaquin 750 Mg/D5w 150 Ml IVPB Q48H TAMIR Insulin Aspart 2 - 5 units 10/12/24 17:00 10/14/24 08:13 Insulin Aspart (*Bkc) 100 Units/Ml SUB-Q Not Given TIDWM TAMIR Protocol Insulin Glargine 14 units 10/10/24 21:00 10/12/24 01:35 Insulin Glargine (*Bkc) 100 Units/Ml SUB-Q Not Given HS TAMIR Lidocaine 1 patch 10/13/24 09:00 10/14/24 08:14 Lidocaine 5% Patch TRANSDERM 1 patch DAILY TAMIR Administration Lisinopril 10 mg 10/10/24 15:10 10/12/24 14:26 Lisinopril 10 Mg Tablet PO Not Given DAILY TAMIR Metoprolol Succinate 25 mg 10/10/24 15:10 10/12/24 14:26 Metoprolol Succinate Ext Rel 25 Mg Tabcr PO Not Given DAILY TAMIR Metoprolol Tartrate 2.5 mg 10/12/24 21:00 10/14/24 08:16 Metoprolol Tartrate Inj 5 Mg/5 Ml Vial IV PUSH 2.5 mg Q12HR TAMIR Administration Ondansetron HCl 4 mg 10/10/24 03:52 10/14/24 08:27 Ondansetron Inj 4 Mg/2 Ml Vial IV PUSH 4 mg Q4H PRN Administration Nausea Sertraline HCl 50 mg 10/10/24 15:10 10/12/24 14:27 Sertraline Hcl 50 Mg Tablet PO Not Given [facility] Radiology Results: ITS Impressions Abdomen/Pelvis CT 10/11/24 09:55 IMPRESSION: Interval removal of the nasogastric tube when compared with previous examination. Redemonstration of multiple loops of prominent fluid-filled small bowel loops which extend into the pelvis for which small bowel obstruction is suspected. Rectosigmoid diverticulosis and mural thickening with limited evaluation for surrounding inflammatory change secondary to the lack of intravenous contrast and the lack of intrapelvic fat. Retroperitoneal lymphadenopathy is suspected, although detection is limited without intravenous contrast. Perihepatic and perisplenic fluid is now identified, an interval change from previous days examination. Given the culmination of findings (as detailed above) premedication for patient's contrast allergy is recommended with repeat evaluation with intravenous contrast. Upper GI and Small Bowel X-Ray 10/12/24 16:57 IMPRESSION: 1. Normal small bowel transit time to the cecum of 2 hours with no frankly dilated loops of small bowel to suggest obstruction. 2. Large amount of residual contrast within the stomach on the 4 hour delayed images suggestive of gastroparesis. 3. Unchanged 1.6 cm left renal stone. Abdomen X-Ray 10/13/24 09:46 IMPRESSION: Indeterminate loop of likely superimposed small bowel within the right hemipelvis with additional contrast now opacifying the ascending, transverse and descending colons Labs Labs: Laboratory Results - last 24 hr 10/13/24 10/13/24 10/14/24 12:25 17:58 00:43 WBC RBC Hgb Hct MCV MCH MCHC RDW Plt Count MPV % Immature Plt Fraction Sodium Potassium Chloride Carbon Dioxide Anion Gap BUN Creatinine Estim Creat Clear Calc Estimated GFR Glucose POC Capillary Glucose 148 H 113 H 106 H Calcium Magnesium Total Bilirubin AST ALT Alkaline Phosphatase Total Protein Albumin 10/14/24 10/14/24 05:00 05:54 WBC 4.9 RBC 3.20 L Hgb 9.5 L Hct 31.4 L MCV 98.1 MCH 29.7 MCHC 30.3 L RDW 17.5 H Plt Count 69 L MPV 11.3 H % Immature Plt Fraction 7.3 Sodium 142 Potassium 3.7 Chloride 103 Carbon Dioxide 34 H Anion Gap 5 BUN 19 H Creatinine 0.58 L Estim Creat Clear Calc Not Reportable Estimated GFR > 60 Glucose 97 POC Capillary Glucose 88 Calcium 9.6 Magnesium 2.0 Total Bilirubin 0.3 AST 25 ALT 12 Alkaline Phosphatase 46 Total Protein 5.4 L Albumin 2.9 L
--- NOTE | 2024-10-14 13:56 | P.PNIM_ITS ---
Progress Note: A&P Assessment and Plan (1) SBO (small bowel obstruction): Code(s): K56.609 - Unspecified intestinal obstruction, unspecified as to partial versus complete obstruction Status: Acute Assessment and Plan: patient initially presented with nausea vomiting initial CT abdomen showing partial small bowel obstruction and NG tube was placed and patient was admitted to the medical unit for bowel rest and decompression with a consult to GI. patient had overall improvement with placement of NG tube appeared emesis looked more like gastroenteritis and patient with overall improvement to nausea vo miting requesting to eat. NG tube was then removed however after initiating food patient's nausea vomiting return with mid abdominal pain and further emesis. * small bowel series repeat SBO * General surgery consulted * NG tube for decompression monitor output * pain control with IV Dilaudid * antiemetics * NPO status * IV fluids * Plan for exploratory laparotomy possible bowel resection 10/13/2024 (2) Anemia: Code(s): D64.9 - Anemia, unspecified Status: Acute Assessment and Plan: patient with history of anemia hemoglobin stable at this time * Monitor Hgb no evidence of GIB * Transfuse PRBC if Hgb <7.0 (3) Hypertension: Code(s): I10 - Essential (primary) hypertension Status: Acute Assessment and Plan: patient with mild hypertension * switch patient to IV push metoprolol since she is NPO her oral doses 25 mg daily * BP per unit protocol (4) HLD (hyperlipidemia): Code(s): E78.5 - Hyperlipidemia, unspecified Status: Acute Assessment and Plan: * continue statin when able (5) Diabetes: Code(s): E11.9 - Type 2 diabetes mellitus without complications Status: Acute Assessment and Plan: * patient NPO status q.6 a.c. HS * sliding scale insulin * will hold patient's metformin * hypoglycemic protocol (6) Thrombocytopenia: Code(s): D69.6 - Thrombocytopenia, unspecified Status: Acute Assessment and Plan: Chronic patient has been follow and monitored outpatient by primary: 133 POA dropped to 86 * trend and monitor for bleeding * Transfuse PLT if <15 * recommend f/u outpatient with digital marketing coordinator Plan Code status: DNR DVT prophylaxis: SCD Stress ulcer prophylaxis: Pepcid IVP BID while NPO PT/OT notes: Disposition: 10/14/2024: Patient still with ABD tenderness, no BM no gas. NG tube with moderate amount of output. Small bowel series still showing SBO plan for continued NPO, decompression with NG tube, patient is seen by general surgery recommending conservative management in hope spontaneous resolution of SBO and to avoid surgery, and further recommendation to follow, patient c/o low back pain, will apply Lidoderm patches. will need to start TPN or PPN if going to be NPO for an extended period time. Subjective Date/time seen: 10/14/24 13:56 Interval history: Patient is an 84-year-old female admitted for further evaluation and treatment of SBO. GI and general surgery following 10/14/2024: Patient still with ABD tenderness, no BM no gas. NG tube with moderate amount of output. Small bowel series still showing SBO plan for continued NPO, decompression with NG tube, patient is seen by general surgery recommending conservative management in hope spontaneous resolution of SBO and to avoid surgery, and further recommendation to follow, patient c/o low back pain, will apply Lidoderm patches. Review of Systems Review of Systems: As reviewed above in HPI All systems reviewed & are unremarkable except as noted in HPI and below Exam Narrative: Patient is comfortable, NAD, NG tube to suction HEENT: eyes are clear and none icteric LUNGS:CTA HEART: RR S1S2 ABD: Mild tenderness, soft and less distended. Absent bowel sounds Lower extremities: no edema SKIN: nonjaundiced Neuro: grossly intact. Objective Data Vital Signs Vital Signs: Vital Signs - 24 hr 10/13/24 13:57 10/13/24 16:00 10/13/24 20:00 Temperature 36.8 C Pulse Rate 66 62 Respiratory Rate 16 Blood Pressure 120/65 Pulse Oximetry 99 Oxygen Delivery Room Air Oxygen Flow Rate 10/13/24 20:00 10/13/24 21:20 10/14/24 00:00 Temperature 36.8 C Pulse Rate 73 73 57 L Respiratory Rate 18 Blood Pressure 133/71 Pulse Oximetry 98 Oxygen Delivery Oxygen Flow Rate 10/14/24 04:00 10/14/24 06:00 10/14/24 08:00 Temperature 36.2 C L Pulse Rate 59 L 96 Respiratory Rate 18 Blood Pressure 132/49 L Pulse Oximetry 90 94 Oxygen Delivery Nasal Cannula Oxygen Flow Rate 2 10/14/24 08:00 10/14/24 08:16 10/14/24 10:33 Temperature Pulse Rate 52 L 70 Respiratory Rate Blood Pressure Pulse Oximetry 96 Oxygen Delivery Nasal Cannula Oxygen Flow Rate 3 07/09/25 12:00 Temperature Pulse Rate 54 L Respiratory Rate Blood Pressure Pulse Oximetry Oxygen Delivery Oxygen Flow Rate Intake/Output Intake/Output: Intake & Output 10/11/24 10/12/24 10/13/24 10/14/24 23:59 23:59 23:59 23:59 Intake Total 2320 1985 1999 1929 Output Total 1350 800 750 Balance 970 1185 1999 1180 Meds/Results Medications: Active Medications Generic Name Dose Route Start Last Admin Trade Name Freq PRN Reason Stop Dose Admin Acetaminophen 650 mg 10/10/24 06:29 Acetaminophen 650 Mg Suppository RECTAL Q4H PRN Pain Rated 5 or Less or Fever Al Hydrox/Mg Hydrox/Simethicone 30 ml 10/12/24 15:45 10/14/24 13:35 Mag Hydrox/Al Hydrox/Simeth 30 Ml Udc FEED TUBE 30 ml Q8HR TAMIR Administration Aspirin 81 mg 10/10/24 15:10 10/12/24 14:26 Aspirin 81 Mg Enteric Tablet PO 11/10/24 15:09 Not Given DAILY TAMIR Atorvastatin Calcium 40 mg 10/10/24 21:00 10/11/24 21:22 Atorvastatin 40 Mg Tablet PO Not Given HS TAMIR Dextrose 12.5 gm 10/10/24 15:02 Dextrose 50% 25 Gm/50 Ml Syringe IV PUSH PRN PRN Hypoglycemia Protocol Famotidine 20 mg 10/12/24 21:00 10/14/24 08:14 Famotidine 20 Mg/2 Ml Vial IV PUSH 20 mg Q12HR TAMIR Administration Furosemide 20 mg 10/10/24 14:59 Furosemide 20 Mg Tablet PO Q12H PRN edema Glucagon 1 mg 10/10/24 15:02 Glucagon For Inj 1 Mg Vial IM PRN PRN Hypoglycemia Protocol Glucose 15 gm 10/10/24 15:02 Glucose Oral Gel 15 Gm Of Glucse In 37.5 Gm Tube PO PRN PRN Hypoglycemia Protocol Hydromorphone HCl 1 mg 10/11/24 09:31 10/14/24 08:21 Hydromorphone Hcl Inj (*Crx) 2 Mg/Ml Vial IV PUSH 1 mg Q3H PRN Administration Pain Rated 7-10 Lactated Ringer's 1,000 mls @ 100 mls/hr 10/10/24 03:55 10/14/24 11:33 Lr - Lactated Ringers Iv IV CONT 100 mls/hr .Q10H TAMIR Administration Dextrose 1,000 mls @ 100 mls/hr 10/10/24 15:02 Dextrose 5% 1,000 Ml IVPB PRN PRN Hypoglycemia Protocol Levofloxacin/Dextrose 750 mg in 150 mls @ 100 mls/hr 10/15/24 09:00 Levaquin 750 Mg/D5w 150 Ml IVPB Q48H [facility] [place] Insulin Aspart 2 - 5 units 10/12/24 17:00 10/14/24 12:28 Insulin Aspart (*Bkc) 100 Units/Ml SUB-Q Not Given TIDWM [facility] [place] Protocol Insulin Glargine 14 units 10/10/24 21:00 10/12/24 01:35 Insulin Glargine (*Bkc) 100 Units/Ml SUB-Q Not Given HS [facility] [place] Lidocaine 1 patch 10/13/24 09:00 10/14/24 08:14 Lidocaine 5% Patch TRANSDERM 1 patch DAILY TAMIR Administration Lisinopril 10 mg 10/10/24 15:10 10/12/24 14:26 Lisinopril 10 Mg Tablet PO Not Given DAILY TAMIR Metoprolol Succinate 25 mg 10/10/24 15:10 10/12/24 14:26 Metoprolol Succinate Ext Rel 25 Mg Tabcr PO Not Given DAILY [facility] [place] Metoprolol Tartrate 2.5 mg 10/12/24 21:00 10/14/24 08:16 Metoprolol Tartrate Inj 5 Mg/5 Ml Vial IV PUSH 2.5 mg Q12HR TAMIR Administration Ondansetron HCl 4 mg 10/10/24 03:52 10/14/24 08:27 Ondansetron Inj 4 Mg/2 Ml Vial IV PUSH 4 mg Q4H PRN Administration Nausea Sertraline HCl 50 mg 10/10/24 15:10 10/12/24 14:27 Sertraline Hcl 50 Mg Tablet PO Not Given QAM [facility] [place] Radiology Results: ITS Impressions Abdomen/Pelvis CT 10/11/24 09:55 IMPRESSION: Interval removal of the nasogastric tube when compared with previous examination. Redemonstration of multiple loops of prominent fluid-filled small bowel loops which extend into the pelvis for which small bowel obstruction is suspected. Rectosigmoid diverticulosis and mural thickening with limited evaluation for surrounding inflammatory change secondary to the lack of intravenous contrast and the lack of intrapelvic fat. Retroperitoneal lymphadenopathy is suspected, although detection is limited without intravenous contrast. Perihepatic and perisplenic fluid is now identified, an interval change from previous days examination. Given the culmination of findings (as detailed above) premedication for patient's contrast allergy is recommended with repeat evaluation with intravenous contrast. Upper GI and Small Bowel X-Ray 10/12/24 16:57 IMPRESSION: 1. Normal small bowel transit time to the cecum of 2 hours with no frankly dilated loops of small bowel to suggest obstruction. 2. Large amount of residual contrast within the stomach on the 4 hour delayed images suggestive of gastroparesis. 3. Unchanged 1.6 cm left renal stone. Abdomen X-Ray 10/13/24 09:46 IMPRESSION: Indeterminate loop of likely superimposed small bowel within the right hemipelvis with additional contrast now opacifying the ascending, transverse and descending colons Labs Labs: Laboratory Results - last 24 hr 10/13/24 10/14/24 10/14/24 17:58 00:43 05:00 WBC RBC Hgb Hct MCV MCH MCHC RDW Plt Count MPV % Immature Plt Fraction Sodium Potassium Chloride Carbon Dioxide Anion Gap BUN Creatinine Estim Creat Clear Calc Estimated GFR Glucose POC Capillary Glucose 113 H 106 H 88 Calcium Magnesium Total Bilirubin AST ALT Alkaline Phosphatase Total Protein Albumin 10/14/24 10/14/24 05:54 12:23 WBC 4.9 RBC 3.20 L Hgb 9.5 L Hct 31.4 L MCV 98.1 MCH 29.7 MCHC 30.3 L RDW 17.5 H Plt Count 69 L MPV 11.3 H % Immature Plt Fraction 7.3 Sodium 142 Potassium 3.7 Chloride 103 Carbon Dioxide 34 H Anion Gap 5 BUN 19 H Creatinine 0.58 L Estim Creat Clear Calc Not Reportable Estimated GFR > 60 Glucose 97 POC Capillary Glucose 85 Calcium 9.6 Magnesium 2.0 Total Bilirubin 0.3 AST 25 ALT 12 Alkaline Phosphatase 46 Total Protein 5.4 L Albumin 2.9 L Quality VTE Prophylaxis VTE prophylaxis: mechanical ordered
[2024-10-15] VITALS (30 sets, daily range): BP systolic 114–161; BP diastolic 45–106; PULSE 57–93; RESP 14–20; TEMP 35.8–37.9; O2SAT 88–100; BMI 27.7
[2024-10-15] MEDS: MAG HYDROX/AL HYDROX/SIMETH 30 ML UDC FEED TUBE ×2 (05:51→21:32)
[2024-10-15] MEDS: LACTATED RINGERS 1,000 ML 100 ML IV CONT (05:51)
[2024-10-15 06:39] LABS: Hematocrit 34.5 % (37.0-47.0); Hemoglobin 10.0 g/dL (12.0-15.0); Immature Platelet Fraction Pct 6.9 % (0.9-11.2); Mean Corpuscular HGB Conc 29.0 g/dl (32-36); Mean Corpuscular Hemoglobin 29.5 pg (26-34); Mean Corpuscular Volume 101.8 fl (80-100); Platelet Count Result 76 k/mm3 (150-375); Red Blood Count 3.39 M/mm3 (4.2-5.4); White Blood Count 4.9 K/mm3 (4.5-10.0)
--- NOTE | 2024-10-15 07:15 | P.PNIM_ITS ---
Progress Note: A&P Assessment and Plan (1) SBO (small bowel obstruction): Code(s): K56.609 - Unspecified intestinal obstruction, unspecified as to partial versus complete obstruction Status: Acute Assessment and Plan: Patient initially presented with nausea vomiting, concerning for coffee ground emesis Initial CT abdomen 10/10 showed partial small bowel obstruction and NG tube was placed and patient admitted for bowel rest and decompression with a consult to GI. Patient had overall improvement with placement of NG tube, emesis looked more like gastroenteritis. NG tube was then removed however after initiating food patient's nausea vomiting return with mid abdominal pain and further emesis. Repeat CT abdomen 10/11 showed redemonstration of multiple loops of prominent fluid-filled small bowel loops which extend into the pelvis for which small bowel obstruction is suspected. NG tube reinserted. Small bowel series showed SBO NG tube in place for decompression, attempted clamping trial unsuccessful. Increased bloating and left sided abdominal pain. Not passing flatus and no BM today. NPO with IV fluids, consider PICC line and TPN if surgery wishes to keep NPO Analgesics: dilaudid 1 mg IV q 3 PRN Antiemetics Monitor I&Os, vital signs, neuro status and patient is a fall risk Monitor serum electrolytes and CBC Surgery consulted If she fails clamping trial the she might need exploratory laparotomy and likely adhesiolysis for ongoing partial small-bowel obstruction refractory to nonoperative measures. (2) Shortness of breath: Code(s): R06.02 - Shortness of breath Status: Acute Assessment and Plan: Patient endorsing slight shortness of breath that is exacerbated with deep breathing. No associated cough. WBC WNL. Currently on 2L NC, baseline RA. Has history of COPD. Continue to wean oxygen supplementation as tolerated to maintain SpO2 >88% No documented hypoxia on chart review Abdomen/pelvis CT 10/11 showed small bilateral pleural effusions, with adjacent compressive atelectasis and the remainder of the bilateral lung bases are clear. Chest XR ordered to reassess Incentive spirometer (3) Anemia: Code(s): D64.9 - Anemia, unspecified Status: Acute Assessment and Plan: Patient with history of anemia hemoglobin stable at this time Iron panel and ferritin pending B12 and folate WNL Monitor Hgb no evidence of GIB Transfuse PRBC if Hgb <7.0 (4) Hypertension: Code(s): I10 - Essential (primary) hypertension Status: Acute Assessment and Plan: Chronic, continue to monitor - holding home lisinopril 10 mg daily and metoprolol 25 mg daily as patient is NPO - continue IV push metoprolol 2.5 mg BID - BP remains well controlled, continue to monitor (5) HLD (hyperlipidemia): Code(s): E78.5 - Hyperlipidemia, unspecified Status: Acute Assessment and Plan: * continue statin when able (6) Diabetes: Code(s): E11.9 - Type 2 diabetes mellitus without complications Status: Acute Assessment and Plan: - hypoglycemia protocol - POC blood glucose q6 as patient is NPO - home medication - metformin 500 mg BID (on hold) - correct regimen ordered - low dose TIDWM (7) Thrombocytopenia: Code(s): D69.6 - Thrombocytopenia, unspecified Status: Acute Assessment and Plan: Chronic patient has been follow and monitored outpatient by primary * trend and monitor for bleeding * Transfuse PLT if <15 * 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 Patient is pleasant sitting up comfortably in bed. The NG tube is clamped and patient endorses slight increase abdominal pain especially to the left lower quadrant. She has not passed flatus today nor she had a bowel movement. She denies any associated nausea/vomiting is tolerating her ice chips. She remains on 2 L nasal cannula baseline is room air. Endorses slight shortness of breath but denies any associated cough. She states the shortness of breath is further exacerbated with deep breathing. She has no other complaints denying chest pain and palpitations. Review of Systems Review of Systems: All systems reviewed & are unremarkable except as noted in HPI and below Exam Narrative: AF HR 60 RR 16 SPO2 96 2L (baseline RA) BP 138/50 General: female in no acute respiratory distress who is nontoxic appearing, lying semi recumbent in bed. HEENT: Normocephalic. Atraumatic. Extraocular movement intact. Sclera clear and anicteric. No facial asymmetry. NG tube in place. Chest: Lungs are clear to auscultation bilaterally. No wheezes or crackles. CV: Heart was regular rate and rhythm. S1-S2. No murmurs, gallops, or rubs. Abd: Abdomen was soft. Tenderness to palpation. Nondistended. Positive bowel sounds. Ext: No clubbing, cyanosis, or edema. DP pulses bilaterally. Neuro: Patient is alert and oriented x4. Speech is clear. Objective Data Vital Signs Vital Signs: Vital Signs - 24 hr 10/14/24 08:00 10/14/24 08:00 10/14/24 08:16 Temperature Pulse Rate 52 L 70 Respiratory Rate Blood Pressure Pulse Oximetry 94 Oxygen Delivery Nasal Cannula Oxygen Flow Rate 2 10/14/24 10:33 10/14/24 12:00 10/14/24 14:00 Temperature 98.3 F Pulse Rate 54 L 77 Respiratory Rate 14 Blood Pressure 121/52 L Pulse Oximetry 96 100 Oxygen Delivery Nasal Cannula Oxygen Flow Rate 3 10/14/24 16:00 10/14/24 20:01 10/14/24 20:58 Temperature Pulse Rate 62 66 73 Respiratory Rate Blood Pressure Pulse Oximetry Oxygen Delivery Oxygen Flow Rate 10/14/24 21:00 10/14/24 21:01 10/14/24 21:08 Temperature 98.1 F Pulse Rate Respiratory Rate 16 Blood Pressure 139/57 L Pulse Oximetry 100 Oxygen Delivery Nasal Cannula Oxygen Flow Rate 2 10/15/24 00:00 10/15/24 04:00 10/15/24 04:36 Temperature 96.4 F L Pulse Rate 75 64 61 Respiratory Rate 17 Blood Pressure 114/45 L Pulse Oximetry 97 Oxygen Delivery Oxygen Flow Rate 10/15/24 06:02 Temperature 97.7 F Pulse Rate Respiratory Rate Blood Pressure Pulse Oximetry Oxygen Delivery Oxygen Flow Rate Intake/Output Intake/Output: Intake & Output 10/12/24 10/13/24 10/14/24 10/15/24 23:59 23:59 23:59 23:59 Intake Total 1984 1999 2929 Output Total 800 950 Balance 1185 1999 1979 Meds/Results Medications: Active Medications Generic Name Dose Route Start Last Admin Trade Name Freq PRN Reason Stop Dose Admin Acetaminophen 650 mg 10/10/24 06:29 Acetaminophen 650 Mg Suppository RECTAL Q4H PRN Pain Rated 5 or Less or Fever Al Hydrox/Mg Hydrox/Simethicone 30 ml 10/12/24 15:45 10/15/24 05:51 Mag Hydrox/Al Hydrox/Simeth 30 Ml Udc FEED TUBE 30 ml Q8HR TAMIR Administration Aspirin 81 mg 10/10/24 15:10 10/12/24 14:26 Aspirin 81 Mg Enteric Tablet PO 11/10/24 15:09 Not Given DAILY TAMIR Atorvastatin Calcium 40 mg 10/10/24 21:00 10/11/24 21:22 Atorvastatin 40 Mg Tablet PO Not Given HS TAMIR Dextrose 12.5 gm 10/10/24 15:02 Dextrose 50% 25 Gm/50 Ml Syringe IV PUSH PRN PRN Hypoglycemia Protocol Famotidine 20 mg 10/12/24 21:00 10/14/24 20:58 Famotidine 20 Mg/2 Ml Vial IV PUSH 20 mg Q12HR TAMIR Administration Furosemide 20 mg 10/10/24 14:59 Furosemide 20 Mg Tablet PO Q12H PRN edema Glucagon 1 mg 10/10/24 15:02 Glucagon For Inj 1 Mg Vial IM PRN PRN Hypoglycemia Protocol Glucose 15 gm 10/10/24 15:02 Glucose Oral Gel 15 Gm Of Glucse In 37.5 Gm Tube PO PRN PRN Hypoglycemia Protocol Hydromorphone HCl 1 mg 10/11/24 09:31 10/14/24 23:04 Hydromorphone Hcl Inj (*Crx) 2 Mg/Ml Vial IV PUSH 1 mg Q3H PRN Administration Pain Rated 7-10 Lactated Ringer's 1,000 mls @ 100 mls/hr 10/10/24 03:55 10/15/24 05:51 Lr - Lactated Ringers Iv IV CONT 100 mls/hr .Q10H TAMIR Administration Dextrose 1,000 mls @ 100 mls/hr 10/10/24 15:02 Dextrose 5% 1,000 Ml IVPB PRN PRN Hypoglycemia Protocol Levofloxacin/Dextrose 750 mg in 150 mls @ 100 mls/hr 10/15/24 09:00 Levaquin 750 Mg/D5w 150 Ml IVPB Q48H TAMIR Insulin Aspart 2 - 5 units 10/12/24 17:00 10/14/24 18:06 Insulin Aspart (*Bkc) 100 Units/Ml SUB-Q Not Given TIDWM [facility] Protocol Insulin Glargine 14 units 10/10/24 21:00 10/12/24 01:35 Insulin Glargine (*Bkc) 100 Units/Ml SUB-Q Not Given HS TAMIR Lidocaine 1 patch 10/13/24 09:00 10/14/24 08:14 Lidocaine 5% Patch TRANSDERM 1 patch DAILY TAMIR Administration Lisinopril 10 mg 10/10/24 15:10 10/12/24 14:26 Lisinopril 10 Mg Tablet PO Not Given DAILY TAMIR Metoprolol Succinate 25 mg 10/10/24 15:10 10/12/24 14:26 Metoprolol Succinate Ext Rel 25 Mg Tabcr PO Not Given DAILY TAMIR Metoprolol Tartrate 2.5 mg 10/12/24 21:00 10/14/24 20:58 Metoprolol Tartrate Inj 5 Mg/5 Ml Vial IV PUSH 2.5 mg Q12HR TAMIR Administration Ondansetron HCl 4 mg 10/10/24 03:52 10/14/24 08:27 Ondansetron Inj 4 Mg/2 Ml Vial IV PUSH 4 mg Q4H PRN Administration Nausea Sertraline HCl 50 mg 10/10/24 15:10 10/12/24 14:27 Sertraline Hcl 50 Mg Tablet PO Not Given QAM [facility] Radiology Results: ITS Impressions Abdomen/Pelvis CT 10/11/24 09:55 IMPRESSION: Interval removal of the nasogastric tube when compared with previous examination. Redemonstration of multiple loops of prominent fluid-filled small bowel loops which extend into the pelvis for which small bowel obstruction is suspected. Rectosigmoid diverticulosis and mural thickening with limited evaluation for surrounding inflammatory change secondary to the lack of intravenous contrast and the lack of intrapelvic fat. Retroperitoneal lymphadenopathy is suspected, although detection is limited without intravenous contrast. Perihepatic and perisplenic fluid is now identified, an interval change from p revious days examination. Given the culmination of findings (as detailed above) premedication for patient's contrast allergy is recommended with repeat evaluation with intrav enous contrast. Upper GI and Small Bowel X-Ray 10/12/24 16:57 IMPRESSION: 1. Normal small bowel transit time to the cecum of 2 hours with no frankly dilated loops of small bowel to suggest obstruction. 2. Large amount of residual contrast within the stomach on the 4 hour delayed images suggestive of gastroparesis. 3. Unchanged 1.6 cm left renal stone. Abdomen X-Ray 10/13/24 09:46 IMPRESSION: Indeterminate loop of likely superimposed small bowel within the right hemipelvis with additional contrast now opacifying the ascending, transverse and descending colons Labs Labs: Laboratory Results - last 24 hr 10/14/24 10/14/24 10/15/24 12:23 17:59 00:15 WBC RBC Hgb Hct MCV MCH MCHC RDW Plt Count MPV % Immature Plt Fraction POC Capillary Glucose 85 87 82 10/15/24 10/15/24 06:05 06:06 WBC 4.9 RBC 3.39 L Hgb 10.0 L Hct 34.5 L MCV 101.8 H MCH 29.5 MCHC 29.0 L RDW 17.4 H Plt Count 76 L MPV 11.0 H % Immature Plt Fraction 6.9 POC Capillary Glucose 71 Quality VTE Prophylaxis VTE prophylaxis: mechanical ordered
[2024-10-15 07:16] LABS: Alanine Aminotransferase 16 U/L (6-35); Albumin Level 3.2 g/dL (3.5-5.1); Alkaline Phosphatase 52 U/L (38-126); Anion Gap 5 mmol/L (4-12); Aspartate Amino Transferase 31 U/L (14-36); Bilirubin,Total 0.6 mg/dL (0.2-1.3); Blood Urea Nitrogen 16 mg/dL (7-17); Calcium 9.8 mg/dL (8.4-10.2); Carbon Dioxide 35 mmol/L (22-30); Chloride 102 mmol/L (98-107); Estimated Glomerular Filt Rate > 60; Glucose 65 mg/dL (65-110); Magnesium 2.2 mg/dL (1.6-2.3); Potassium 3.4 mmol/L (3.4-5.0); Sodium 142 mmol/L (137-145); Total Protein 5.5 g/dL (6.3-8.2)
[2024-10-15] MEDS: FAMOTIDINE 20 MG/2 ML VIAL IV PUSH ×2 (08:22→20:38)
[2024-10-15] MEDS: LIDOCAINE 5% PATCH 1 PATCH TRANSDERM (08:23)
[2024-10-15] MEDS: METOPROLOL TARTRATE INJ 5 MG/5 ML VIAL 2.5 MG IV PUSH ×2 (08:23→21:29)
[2024-10-15] MEDS: levoFLOXacin 750 MG/D5W 150 ML 750 MG/150 ML BAG 100 MG IVPB (08:24)
[2024-10-15] MEDS: POTASSIUM CHLORIDE INJ 40 MEQ in SODIUM CHLORIDE 0.9% IV 500 ML 130 MEQ IVPB (08:24)
[2024-10-15] MEDS: HYDROmorphone HCL INJ (*CRX) 2 MG/ML VIAL 1 MG IV PUSH ×2 (08:43→19:34)
[2024-10-15 09:51] LABS: Vitamin B12 572.0 pg/mL (239-931)
--- NOTE | 2024-10-15 10:36 | PM.PNGS ---
Progress Note: A&P Assessment and Plan (1) SBO (small bowel obstruction): Code(s): K56.609 - Unspecified intestinal obstruction, unspecified as to partial versus complete obstruction Status: Acute Assessment and Plan: NG clamped overnight with more bloating and some intermittent abdominal pain. No bowel movements since 2 nights ago. WBC count normal and her abdominal exam appears stable. Will continue NG tube, bowel rest, and IV fluids. Dr. Mitchell will evaluate the patient today. If she will need to remain NPO, may need to consider PICC line and TPN. Plan I have discussed the patient's case and plan of care with Dr. Mitchell. Subjective Subjective Date/Time Seen: 10/15/24 10:36 Patient reports: no flatus, bowel movement (2 nights ago, small BM) and afebrile Interval history: NG tube clamped overnight. Patient reports having a good night 2 nights ago, but last night she had trouble sleeping. She could not get comfortable. She reports having a lot of bloating and some intermittent left-sided abdominal pain. Denies passing any flatus today or last night. Her last bowel movement was 2 nights ago and reportedly very small. Nursing put NG to suction this morning and got 300 cc out. NG clamped again. Exam Const: General: no acute distress and uncomfortable Orientation/consciousness: patient oriented x3 GI: Inspection: distended GI Palp: Yes Soft to palpation, Yes Tenderness to palpation present (GI) (Mild diffuse tenderness), No Guarding due to palpation present (GI) and No Rebound tenderness present Auscultation: Hypoactive bowel sounds present Objective Data Vital Signs Vital Signs: Vital Signs - 24 hr 10/14/24 12:00 10/14/24 14:00 10/14/24 16:00 Temperature 98.3 F Pulse Rate 54 L 77 62 Respiratory Rate 14 Blood Pressure 121/52 L Pulse Oximetry 100 Oxygen Delivery Oxygen Flow Rate 10/14/24 20:01 10/14/24 20:58 10/14/24 21:00 Temperature Pulse Rate 66 73 Respiratory Rate Blood Pressure Pulse Oximetry 100 Oxygen Delivery Nasal Cannula Oxygen Flow Rate 2 10/14/24 21:01 10/14/24 21:08 10/15/24 00:00 Temperature 98.1 F Pulse Rate 75 Respiratory Rate 16 Blood Pressure 139/57 L Pulse Oximetry Oxygen Delivery Oxygen Flow Rate 10/15/24 04:00 10/15/24 04:36 10/15/24 06:02 Temperature 96.4 F L 97.7 F Pulse Rate 64 61 Respiratory Rate 17 Blood Pressure 114/45 L Pulse Oximetry 97 Oxygen Delivery Oxygen Flow Rate 10/15/24 09:08 10/15/24 09:22 10/15/24 09:24 Temperature Pulse Rate Respiratory Rate Blood Pressure Pulse Oximetry 98 88 L 92 Oxygen Delivery Nasal Cannula Room Air Nasal Cannula Oxygen Flow Rate 2 2 Intake/Output Intake/Output: Intake & Output 10/12/24 10/13/24 10/14/24 10/15/24 23:59 23:59 23:59 23:59 Intake Total 1984 1999 2929 Output Total 800 950 Balance 1185 1999 1979 Meds/Results Medications: Active Medications Generic Name Dose Route Start Last Admin Trade Name Freq PRN Reason Stop Dose Admin Acetaminophen 650 mg 10/10/24 06:29 Acetaminophen 650 Mg Suppository RECTAL Q4H PRN Pain Rated 5 or Less or Fever Al Hydrox/Mg Hydrox/Simethicone 30 ml 10/12/24 15:45 10/15/24 05:51 Mag Hydrox/Al Hydrox/Simeth 30 Ml Udc FEED TUBE 30 ml Q8HR TAMIR Administration Aspirin 81 mg 10/10/24 15:10 10/12/24 14:26 Aspirin 81 Mg Enteric Tablet PO 11/10/24 15:09 Not Given DAILY TAMIR Atorvastatin Calcium 40 mg 10/10/24 21:00 10/11/24 21:22 Atorvastatin 40 Mg Tablet PO Not Given HS TAMIR Dextrose 12.5 gm 10/10/24 15:02 Dextrose 50% 25 Gm/50 Ml Syringe IV PUSH PRN PRN Hypoglycemia Protocol Famotidine 20 mg 10/12/24 21:00 10/15/24 08:22 Famotidine 20 Mg/2 Ml Vial IV PUSH 20 mg Q12HR TAMIR Administration Furosemide 20 mg 10/10/24 14:59 Furosemide 20 Mg Tablet PO Q12H PRN edema Glucagon 1 mg 10/10/24 15:02 Glucagon For Inj 1 Mg Vial IM PRN PRN Hypoglycemia Protocol Glucose 15 gm 10/10/24 15:02 Glucose Oral Gel 15 Gm Of Glucse In 37.5 Gm Tube PO PRN PRN Hypoglycemia Protocol Hydromorphone HCl 1 mg 10/11/24 09:31 10/15/24 08:43 Hydromorphone Hcl Inj (*Crx) 2 Mg/Ml Vial IV PUSH 1 mg Q3H PRN Administration Pain Rated 7-10 Lactated Ringer's 1,000 mls @ 100 mls/hr 10/10/24 03:55 10/15/24 05:51 Lr - Lactated Ringers Iv IV CONT 100 mls/hr .Q10H TAMIR Administration Dextrose 1,000 mls @ 100 mls/hr 10/10/24 15:02 Dextrose 5% 1,000 Ml IVPB PRN PRN Hypoglycemia Protocol Levofloxacin/Dextrose 750 mg in 150 mls @ 100 mls/hr 10/15/24 09:00 10/15/24 08:24 Levaquin 750 Mg/D5w 150 Ml IVPB 100 mls/hr Q48H TAMIR Administration Potassium Chloride 40 meq/ 520 mls @ 130 mls/hr 10/15/24 08:04 10/15/24 08:24 Sodium Chloride IVPB 10/15/24 12:03 130 mls/hr ONCE ONE Administration Insulin Aspart 2 - 5 units 10/12/24 17:00 10/15/24 07:33 Insulin Aspart (*Bkc) 100 Units/Ml SUB-Q Not Given TIDWM [facility] Protocol Insulin Glargine 14 units 10/10/24 21:00 10/12/24 01:35 Insulin Glargine (*Bkc) 100 Units/Ml SUB-Q Not Given HS TAMIR Lidocaine 1 patch 10/13/24 09:00 10/15/24 08:23 Lidocaine 5% Patch TRANSDERM 1 patch DAILY TAMIR Administration Lisinopril 10 mg 10/10/24 15:10 10/12/24 14:26 Lisinopril 10 Mg Tablet PO Not Given DAILY TAMIR Metoprolol Succinate 25 mg 10/10/24 15:10 10/12/24 14:26 Metoprolol Succinate Ext Rel 25 Mg Tabcr PO Not Given DAILY TAMIR Metoprolol Tartrate 2.5 mg 10/12/24 21:00 10/15/24 08:23 Metoprolol Tartrate Inj 5 Mg/5 Ml Vial IV PUSH 2.5 mg Q12HR TAMIR Administration Ondansetron HCl 4 mg 10/10/24 03:52 10/14/24 08:27 Ondansetron Inj 4 Mg/2 Ml Vial IV PUSH 4 mg Q4H PRN Administration Nausea Sertraline HCl 50 mg 10/10/24 15:10 10/12/24 14:27 Sertraline Hcl 50 Mg Tablet PO Not Given [facility] [place] Radiology Results: ITS Impressions Abdomen/Pelvis CT 10/11/24 09:55 IMPRESSION: Interval removal of the nasogastric tube when compared with previous examination. Redemonstration of multiple loops of prominent fluid-filled small bowel loops which extend into the pelvis for which small bowel obstruction is suspected. Rectosigmoid diverticulosis and mural thickening with limited evaluation for surrounding inflammatory change secondary to the lack of intravenous contrast and the lack of intrapelvic fat. Retroperitoneal lymphadenopathy is suspected, although detection is limited without intravenous contrast. Perihepatic and perisplenic fluid is now identified, an interval change from previous days examination. Given the culmination of findings (as detailed above) premedication for patient's contrast allergy is recommended with repeat evaluation with intravenous contrast. Upper GI and Small Bowel X-Ray 10/12/24 16:57 IMPRESSION: 1. Normal small bowel transit time to the cecum of 2 hours with no frankly dilated loops of small bowel to suggest obstruction. 2. Large amount of residual contrast within the stomach on the 4 hour delayed images suggestive of gastroparesis. 3. Unchanged 1.6 cm left renal stone. Abdomen X-Ray 10/13/24 09:46 IMPRESSION: Indeterminate loop of likely superimposed small bowel within the right hemipelvis with additional contrast now opacifying the ascending, transverse and descending colons Labs Labs: Laboratory Results - last 24 hr 10/14/24 10/14/24 10/15/24 12:23 17:59 00:15 WBC RBC Hgb Hct MCV MCH MCHC RDW Plt Count MPV % Immature Plt Fraction Sodium Potassium Chloride Carbon Dioxide Anion Gap BUN Creatinine Estim Creat Clear Calc Estimated GFR Glucose POC Capillary Glucose 85 87 82 Calcium Magnesium Total Bilirubin AST ALT Alkaline Phosphatase Total Protein Albumin Vitamin B12 Folate 10/15/24 10/15/24 10/15/24 06:02 06:05 06:06 WBC 4.9 RBC 3.39 L Hgb 10.0 L Hct 34.5 L MCV 101.8 H MCH 29.5 MCHC 29.0 L RDW 17.4 H Plt Count 76 L MPV 11.0 H % Immature Plt Fraction 6.9 Sodium 142 Potassium 3.4 Chloride 102 Carbon Dioxide 35 H Anion Gap 5 BUN 16 Creatinine 0.58 L Estim Creat Clear Calc Not Reportable Estimated GFR > 60 Glucose 65 POC Capillary Glucose 71 Calcium 9.8 Magnesium 2.2 Total Bilirubin 0.6 AST 31 ALT 16 Alkaline Phosphatase 52 Total Protein 5.5 L Albumin 3.2 L Vitamin B12 572.0 Folate 12.0
[2024-10-15] MEDS: LIDOCAINE 1% PF INJ 5 ML VIAL INFILTRATE (13:50)
--- NOTE | 2024-10-15 15:43 | WPDANESEPPF ---
Anes - Initial Pre Proc Eval Procedure: Operation Date: 10/15/24 15:30 Proposed Procedures p Exploratory Laparotomy, Possible Bowel Resection - Mike Mitchell MD Date/Time: 10/15/24 15:43 Surgeon: René Arora MD Pre Op Diagnosis: UGIB Patient Data Age: 84 Gender: F Height: 1.5 m Weight: 62.3 kg Last Vital Signs Temp 36.4 C 10/15/24 14:00 Pulse 60 10/15/24 14:00 Resp 16 10/15/24 14:00 BP 138/50 L 10/15/24 14:00 Pulse Ox 96 10/15/24 14:00 O2 Del Method Nasal Cannula 10/15/24 09:24 O2 Flow Rate 2 10/15/24 09:24 FiO2 24 10/12/24 20:00 Allergies Allergy/AdvReac Type Severity Reaction Status Date / Time Iodinated Contrast Media Allergy Severe Stopped Verified 10/10/24 12:54 Breathing/ CARDIAC ARREST empagliflozin (From Allergy Mild unkown Verified 10/10/24 05:40 Jardiance) ioversol Allergy Unknown Unknown Verified 10/10/24 05:40 codeine AdvReac Intermediate NAUSEA/VOMI Verified 10/10/24 05:40 TING Contrast Media Allergy Severe CARDIA/RESP Uncoded 10/10/24 05:40 ARREST Home Medications ?Medication ?Instructions ?Recorded ?Confirmed ?Type aspirin 81 mg tablet 81 mg PO DAILY 03/23/21 10/10/24 History atorvastatin 40 mg tablet 40 mg PO HS 03/23/21 10/10/24 History calcium 500 mg tablet 1,500 mg PO DAILY 03/23/21 10/10/24 History famotidine 20 mg tablet 20 mg PO BID 03/23/21 10/10/24 History lisinopril 10 mg tablet 10 mg PO DAILY 03/23/21 10/10/24 History metformin 500 mg tablet 500 mg PO BID 03/23/21 10/10/24 History insulin glargine 100 unit/mL 14 unit subcut .HS 05/14/24 10/10/24 History subcutaneous solution (Lantus U-100 Insulin) metoprolol succinate 25 mg 25 mg PO DAILY 06/05/24 10/10/24 History tablet,extended release 24 hr furosemide 20 mg tablet 20 mg PO Q12H PRN edema 10/10/24 10/10/24 History hydrocodone 7.5 mg-acetaminophen 1 tablet PO Q8H 10/10/24 10/10/24 History 325 mg tablet sertraline 50 mg tablet 50 mg PO Q24H 10/10/24 10/10/24 History Laboratory Tests 10/14/24 10/15/24 10/15/24 17:59 00:15 06:02 WBC RBC Hgb Hct MCV MCH MCHC RDW Plt Count MPV % Immature Plt Fraction Sodium Potassium Chloride Carbon Dioxide Anion Gap BUN Creatinine Estim Creat Clear Calc Estimated GFR Glucose POC Capillary Glucose 87 mg/dl 82 mg/dl (65-105) (65-105) Calcium Magnesium Iron Pending TIBC Pending % Saturation Pending Ferritin Pending Total Bilirubin AST ALT Alkaline Phosphatase Total Protein Albumin Vitamin B12 572.0 pg/mL (239-931) Folate 12.0 ng/mL (2.76->20) 10/15/24 10/15/24 10/15/24 06:05 06:06 11:33 WBC 4.9 K/mm3 (4.5-10.0) RBC 3.39 L M/mm3 (4.2-5.4) Hgb 10.0 L g/dL (12.0-15.0) Hct 34.5 L % (37.0-47.0) MCV 101.8 H fl (80-100) MCH 29.5 pg (26-34) MCHC 29.0 L g/dl (32-36) RDW 17.4 H % (11.5-14.5) Plt Count 76 L k/mm3 (150-375) MPV 11.0 H fl (7.4-10.4) % Immature Plt Fraction 6.9 % (0.9-11.2) Sodium 142 mmol/L (137-145) Potassium 3.4 mmol/L (3.4-5.0) Chloride 102 mmol/L (98-107) Carbon Dioxide 35 H mmol/L (22-30) Anion Gap 5 mmol/L (4-12) BUN 16 mg/dL (7-17) Creatinine 0.58 L mg/dL (0.7-1.0) Estim Creat Clear Calc Not Reportable Estimated GFR > 60 (59 - ) Glucose 65 mg/dL (65-110) POC Capillary Glucose 71 mg/dl 70 mg/dl (65-105) (65-105) Calcium 9.8 mg/dL (8.4-10.2) Magnesium 2.2 mg/dL (1.6-2.3) Iron TIBC % Saturation Ferritin Total Bilirubin 0.6 mg/dL (0.2-1.3) AST 31 U/L (14-36) ALT 16 U/L (6-35) Alkaline Phosphatase 52 U/L (38-126) Total Protein 5.5 L g/dL (6.3-8.2) Albumin 3.2 L g/dL (3.5-5.1) Vitamin B12 Folate 10/15/24 15:32 WBC RBC Hgb Hct MCV MCH MCHC RDW Plt Count MPV % Immature Plt Fraction Sodium Potassium Chloride Carbon Dioxide Anion Gap BUN Creatinine Estim Creat Clear Calc Estimated GFR Glucose POC Capillary Glucose 71 mg/dl (65-105) Calcium Magnesium Iron TIBC % Saturation Ferritin Total Bilirubin AST ALT Alkaline Phosphatase Total Protein Albumin Vitamin B12 Folate Patient hx anesthesia problems: none Family hx anesthesia problems: none Results Review: All pre-operative results and documents have been reviewed as part of the pre-operative evaluation. [facility] Past Medical History Medical History Diabetes COPD (chronic obstructive pulmonary disease) Dark stools Weight loss Acute anemia Family History Family History Sibling Family history of heart disease in male family member before age 55 Family history of alcoholism Colon cancer Father Family history of heart disease in male family member before age 55 Family history of lung cancer Heart attack Sibling Diabetes mellitus Mother Cancer of pancreas Other Hypertension Social History Social History Smoking packs per day: 4 Smoking cigarettes per day: 80.0 Years smoked: 60 Smoking pack-years: 240.00 Smoking status: Former smoker Tobacco type: cigarettes Alcohol intake: never Substance use: never Do You Feel Safe in your Home?: Yes Lack of Transportation: No Lack of Food: Never True Current Housing: I Have Housing Concerned About Future Housing: No Difficulty Paying Gas/Electric Bills: No Difficulty Paying for Meds: No Currently Unemployed: No Education: High School Diploma/GED Difficulty w/ Childcare or Family Care: No Spiritual care concerns: No Anes - Eval Final PreProcedure Day of Procedure 10/15/24 15:43 Patient weight: overweight Heart: regular rate and rhythm Lungs: clear to auscultation Airway: Mallampati scale class II Neurological: alert and oriented Last oral intake: >/= 8 hours ASA classification: IV Emergent: no Anesthetic plan: proceed Anesthesia type and monitoring: general ETT and standard monitoring Results Review: All pre-operative results and documents have been reviewed as part of the pre-operative evaluation. Informed Consent: The patient's anesthetic plan and its attendant risks and benefits were discussed with the patient/family/POA. Questions were solicited and answers provided to the satisfaction of the patient/family/POA.
[2024-10-15] MEDS: LACTATED RINGERS 1,000 ML 30 ML IV CONT ×2 (15:48→18:19)
--- NOTE | 2024-10-15 16:17 | WPDHPUPDATE1 ---
History and Physical Update Update Date/Time: 10/15/24 16:17 History and Physical has been reviewed, including an updated exam of the patient. There are NO changes in the patient's condition. Risks, benefits, and alternatives have been discussed and questions answered. Patient agrees to proceed with procedure. Pt did not tolerate clamping of NGT. Still has picture of partial SBO likely due to adhesions. Appears she has failed nonoperative management and will need to proceed with exp lap and possible bowel resection. Risks, benefits, indications, and expected outcomes were discussed in detail with the patient and/or family. They understand and I have answered all other questions. They wished to proceed with surgery as outlined above.
[2024-10-15] MEDS: fentaNYL CITRATE INJ (*CRX) 100 MCG/2 ML VIAL 25 MCG IV PUSH ×3 (17:59→18:58)
[2024-10-15] MEDS: ONDANSETRON INJ 4 MG/2 ML VIAL IV PUSH (18:19)
--- NOTE | 2024-10-15 18:26 | P.OP_ITS ---
Procedure Note - Detailed Date of Procedure 10/15/24 Pre-op Diagnosis Partial small-bowel obstruction refractory to non operative management Post-op Diagnosis Same Procedure Performed Exploratory laparotomy with abdominal adhesiolysis Surgeon Mike Mitchell MD Medical Social Worker ROSA [facility]ille Anesthesia General Indications The patient is a 84-year-old female who was initially admitted to to the hospital with concerns for an upper GI bleed. There was no obvious source of upper GI bleed and profound but then she developed episodes of nausea vomiting and on imaging signs of a partial small-bowel obstruction likely secondary adhesions was noted. Non operative management with nasogastric tube decompression was started. A water-soluble small bowel series was performed showing transit of contrast to the colon at 2:00 a.m.. The next day additional contrast was seen throughout most the colon and the patient did have 1 bowel movement. However since that time the patient has not had any more bowel movements and was not able to tolerate clamping of her NG tube. She has continued to have high NG tube outputs and no further bowel function. She is now hospital day number 5 not progressing with non operative management so she presents now for exploratory laparotomy possible and possible bowel resection. Findings The abdomen was explored through midline incision. Small amount of ascites was noted and a few adhesions of the omentum was noted to the anterior abdominal wall. There were mildly dilated loops of small bowel noted with a transition point in the left mid lateral abdomen. In this area a single omental adhesion had encircled a loop of distal jejunum causing a relatively high but partial small-bowel obstruction. There was no twisting of the mesentery and all the small bowel appeared to be viable. There was no perforation of the bowel. After I performed adhesiolysis of the single offending band of omentum around the small bowel there were no other areas of constriction. Description of Procedure After informed consent was obtained patient brought to the operating room she was placed supine position and general endotracheal anesthesia was administered. A Valdivia catheter was placed decompress the bladder the abdomen was then prepped and draped usual sterile fashion. A time-out was then performed correctly identifying the patient as well as procedure to be performed. She was already on scheduled IV antibiotics. I then proceeded to make a midline incision starting in the mid epigastric region and then extending it through a portion of her old lower abdominal wall scar. Dissection was carried down through the subcutaneous tissue electrocautery to the midline fascia was encountered. I then entered the abdomen in the mid epigastric region with electrocautery and then I opened the midline fascia to mesh the length of the skin incision. There were a few adhesions of the omentum to the anterior abdominal wall which were easily taken down with electrocautery. Once I had full access to the abdomen, I then placed a Igor retractor to aid with exposure. I then started to eviscerate the small bowel and I found a tongue of omentum which had extended down into the left lower quadrant of the abdomen causing constriction of a loop of distal jejunum. There was no twisting of the mesentery the bowel so all the bowel was viable. I then proceeded to divide the omental adhesion between clamps and ligated the omentum with 2-0 silk sutures. This loop relieved the constriction and I examined the small bowel. There was no stricturing of the antonette men of the small bowel and all the bowel appeared to be normal. I then proceeded to find the terminal ileum and I ran the small bowel from the terminal ileum all the way back to the ligament of Treitz. No other adhesions were noted causing any constrictions of the small bowel. I then milked the contents of the small bowel back up into the stomach and then had a contents aspirated through via the NG tube. The nasogastric tube which was already in place was palpated in good position in the fundus of the stomach. A few more omental adhesions to the right upper quadrant were then divided utilized electrocautery. I then pulled the omentum down over the small bowel which was reduced back into the abdomen twisting the mesentery. I then irrigated the abdomen sterile saline solution hemostasis was good. I then closed the abdomen utilizing a looped 1. PDS suture started at each end incision around into the neck just above the umbilicus. The 2 sutures were then tied together. I then irrigated subcu tissue sterile saline solution. 1% lidocaine mixed with 0.5% Marcaine with epinephrine was then injected around the skin edges and above the fascia for local anesthetic effect. I then closed the incision by placing interrupted 3-0 Vicryl sutures in the deeper subcutaneous tissues. This was followed by a layer of running 3-0 Vicryl suture the more superficial subcutaneous tissues. The skin edges were then approximated using skin keenan. The incision was then cleaned and then an island dressing was placed. The patient tolerated the procedure well no complications. All sponges, needles, and instrument counts were correct at the end procedure. EBL was _25__cc. The patient was awakened and taken to recovery in stable and satisfactory condition. Implants None Estimated Blood Loss 25 Urine Output 200 Drains No Packing No Pathology None sent Complications No immediate complications Condition Stable Disposition PACU [facility] Billing Surgery - Charge Forward: Surgery Billing
[2024-10-15] MEDS: METOCLOPRAMIDE HCL INJ 10 MG/2 ML VIAL IV PUSH (19:29)
[2024-10-15] MEDS: IBUPROFEN IV 800 MG/200 ML 800 MG/200 ML BAG 400 MG IVPB (19:29)
[2024-10-15] MEDS: LACTATED RINGERS 1,000 ML 80 ML IV CONT (19:37)
[2024-10-15] MEDS: AMINO ACIDS 5%/D15W/E-LYTES/CA 1,000 ML with MULTIVITAMINS-12 INJ VIAL 1 1.25 ML, MULTI... 40 ML IV CONT (20:04)
[2024-10-15] MEDS: FAT EMULSIONS IV 20% 250 ML 20.83 ML IVPB (20:06)
[2024-10-15 20:33] LABS: Iron 39 ug/dL (37-170)
[2024-10-15 20:43] LABS: Percent Iron Saturation 15 % (20-50)
[2024-10-15 21:09] LABS: Ferritin 56.40 ng/mL (11.1-264)
[2024-10-15] MEDS: CENTRAL LINE FLUSH 10 ML IV PUSH (21:29)
[2024-10-16] VITALS (15 sets, daily range): BP systolic 104–137; BP diastolic 41–65; PULSE 58–78; RESP 14–20; TEMP 36–36.7; O2SAT 92–99
[2024-10-16] MEDS: HYDROmorphone HCL INJ (*CRX) 2 MG/ML VIAL 1 MG IV PUSH ×3 (00:25→12:44)
[2024-10-16] MEDS: IBUPROFEN IV 800 MG/200 ML 800 MG/200 ML BAG 400 MG IVPB ×3 (01:44→17:56)
[2024-10-16] MEDS: METOCLOPRAMIDE HCL INJ 10 MG/2 ML VIAL IV PUSH ×3 (01:48→17:56)
[2024-10-16] MEDS: CENTRAL LINE FLUSH 10 ML IV PUSH ×3 (04:55→21:51)
[2024-10-16] MEDS: MAG HYDROX/AL HYDROX/SIMETH 30 ML UDC FEED TUBE ×3 (05:00→21:44)
[2024-10-16 05:34] LABS: Hematocrit 28.6 % (37.0-47.0); Hemoglobin 8.9 g/dL (12.0-15.0); Immature Platelet Fraction Pct 6.3 % (0.9-11.2); Mean Corpuscular HGB Conc 31.1 g/dl (32-36); Mean Corpuscular Hemoglobin 29.9 pg (26-34); Mean Corpuscular Volume 96.0 fl (80-100); Platelet Count Result 67 k/mm3 (150-375); Red Blood Count 2.98 M/mm3 (4.2-5.4); White Blood Count 5.3 K/mm3 (4.5-10.0)
[2024-10-16 05:51] LABS: Alanine Aminotransferase 15 U/L (6-35); Albumin Level 2.4 g/dL (3.5-5.1); Alkaline Phosphatase 40 U/L (38-126); Anion Gap 2 mmol/L (4-12); Aspartate Amino Transferase 25 U/L (14-36); Bilirubin,Total 0.3 mg/dL (0.2-1.3); Blood Urea Nitrogen 16 mg/dL (7-17); Calcium 8.5 mg/dL (8.4-10.2); Carbon Dioxide 32 mmol/L (22-30); Chloride 104 mmol/L (98-107); Estimated Glomerular Filt Rate > 60; Glucose 226 mg/dL (65-110); Magnesium 2.0 mg/dL (1.6-2.3); Potassium 3.8 mmol/L (3.4-5.0); Sodium 138 mmol/L (137-145); Total Protein 4.6 g/dL (6.3-8.2)
[2024-10-16 05:58] LABS: Transferrin 116 mg/dL (206-381)
[2024-10-16] MEDS: LACTATED RINGERS 1,000 ML 80 ML IV CONT (08:46)
[2024-10-16] MEDS: INSULIN ASPART (*BKC) 100 UNITS/ML SUB-Q ×3 (08:47→17:55)
[2024-10-16] MEDS: diazePAM INJ (*CRX) 10 MG/2 ML SYRINGE 2.5 MG IV PUSH (08:48)
[2024-10-16] MEDS: LIDOCAINE 5% PATCH 1 PATCH TRANSDERM (08:52)
[2024-10-16] MEDS: FAMOTIDINE 20 MG/2 ML VIAL IV PUSH ×2 (08:54→21:44)
--- NOTE | 2024-10-16 09:49 | P.PNGS_ITS ---
Progress Note: A&P Assessment and Plan (1) SBO (small bowel obstruction): Code(s): K56.609 - Unspecified intestinal obstruction, unspecified as to partial versus complete obstruction Status: Acute Assessment and Plan: * POD1 s/p exploratory laparotomy with abdominal adhesiolysis. Patient is doing well. Still NPO with ice chips. Noted some anxiety overnight, but other than that no acute events. * Will continue NG tube, bowel rest, and TPN. Consider slowly advancing her diet over the weekend. Will continue to monitor with serial abdominal exams. Plan I have discussed the patient's case and plan of care with Dr. Mitchell. Subjective Subjective Date/Time Seen: 10/16/24 09:49 Post Op day: 1 Patient reports: no new complaints Interval history: Patient is doing well today. Noted some anxiety overnight. Given Valium this morning. Family at bedside concerned with patient returning home as she lives by herself. Spoke with care coordination. Dressing was slightly saturated, so changed at bedside today. NG tube with moderate output. Exam GI: GI Palp: Yes Soft to palpation and Yes Tenderness to palpation present (GI) (Mild tenderness surrounding incision) Other: Midline incision dressing slightly saturated with serosanguineous fluid upon visit today. Changed at bedside. Incision is clean and dry with no signs of infection. Moderate ecchymosis to umbilicus region, but no signs of skin necrosis. Objective Data Vital Signs Vital Signs: Vital Signs - 24 hr 10/15/24 12:00 10/15/24 14:00 10/15/24 15:45 Temperature 97.6 F 99.3 F Pulse Rate 57 L 60 60 Respiratory Rate 16 16 Blood Pressure 138/50 L 151/68 H Pulse Oximetry 96 96 Oxygen Delivery Room Air Oxygen Flow Rate 10/15/24 17:32 10/15/24 17:45 10/15/24 18:00 Temperature 100.2 F H Pulse Rate 82 77 82 Respiratory Rate 16 18 14 Blood Pressure 132/106 H 145/56 H 141/56 H Pulse Oximetry 100 100 93 Oxygen Delivery Simple Face Mask Room Air Nasal Cannula Oxygen Flow Rate 10 3 10/15/24 18:15 10/15/24 18:30 10/15/24 18:45 Temperature Pulse Rate 81 78 78 Respiratory Rate 14 14 14 Blood Pressure 145/65 H 136/55 L 132/55 L Pulse Oximetry 98 99 98 Oxygen Delivery Nasal Cannula Nasal Cannula Nasal Cannula Oxygen Flow Rate 3 3 3 10/15/24 19:15 10/15/24 19:22 10/15/24 19:30 Temperature 98.6 F 98.6 F Pulse Rate 88 89 93 Respiratory Rate 20 Blood Pressure 161/69 H 152/62 H Pulse Oximetry 100 96 Oxygen Delivery Oxygen Flow Rate 10/15/24 19:42 10/15/24 19:45 10/15/24 19:50 Temperature 98.4 F Pulse Rate 82 82 Respiratory Rate Blood Pressure 135/55 L Pulse Oximetry 99 100 Oxygen Delivery Nasal Cannula Oxygen Flow Rate 3 10/15/24 20:00 10/15/24 20:00 10/15/24 20:00 Temperature Pulse Rate 79 75 79 Respiratory Rate Blood Pressure 127/51 L Pulse Oximetry 100 Oxygen Delivery Oxygen Flow Rate 10/15/24 20:15 10/15/24 20:30 10/15/24 20:45 Temperature 98.4 F Pulse Rate 77 73 73 Respiratory Rate 20 Blood Pressure 126/54 L 126/51 L 123/54 L Pulse Oximetry 100 100 100 Oxygen Delivery Oxygen Flow Rate 10/15/24 21:00 10/15/24 21:15 10/15/24 21:29 Temperature 97 F L Pulse Rate 70 66 81 Respiratory Rate 20 Blood Pressure 124/55 L 119/55 L Pulse Oximetry 97 97 Oxygen Delivery Oxygen Flow Rate 10/16/24 00:00 10/16/24 00:25 10/16/24 04:00 Temperature 97.7 F Pulse Rate 62 72 78 Respiratory Rate 20 Blood Pressure 137/65 Pulse Oximetry 99 Oxygen Delivery Oxygen Flow Rate 10/16/24 04:50 10/16/24 08:21 10/16/24 08:55 Temperature 98 F 98.0 F Pulse Rate 70 66 58 L Respiratory Rate 20 16 Blood Pressure 113/62 128/59 L Pulse Oximetry 99 97 Oxygen Delivery Oxygen Flow Rate Intake/Output Intake/Output: Intake & Output 10/13/24 10/14/24 10/15/24 10/16/24 23:59 23:59 23:59 23:59 Intake Total 1999 2930 1050 1200 Output Total 950 550 700 Balance 1999 1980 500 500 Meds/Results Medications: Active Medications Generic Name Dose Route Start Last Admin Trade Name Freq PRN Reason Stop Dose Admin Acetaminophen 650 mg 10/10/24 06:29 Acetaminophen 650 Mg Suppository RECTAL Q4H PRN Pain Rated 5 or Less or Fever Al Hydrox/Mg Hydrox/Simethicone 30 ml 10/12/24 15:45 10/16/24 05:00 Mag Hydrox/Al Hydrox/Simeth 30 Ml Udc FEED TUBE 30 ml Q8HR TAMIR Administration Aspirin 81 mg 10/10/24 15:10 10/12/24 14:26 Aspirin 81 Mg Enteric Tablet PO 11/10/24 15:09 Not Given DAILY TAMIR Atorvastatin Calcium 40 mg 10/10/24 21:00 10/11/24 21:22 Atorvastatin 40 Mg Tablet PO Not Given HS TAMIR Dextrose 12.5 gm 10/10/24 15:02 Dextrose 50% 25 Gm/50 Ml Syringe IV PUSH PRN PRN Hypoglycemia Protocol Diazepam 2.5 mg 10/16/24 09:00 10/16/24 08:48 Diazepam Inj (*Crx) 10 Mg/2 Ml Syringe IV PUSH 2.5 mg DAILY TAMIR Administration Famotidine 20 mg 10/12/24 21:00 10/16/24 08:54 Famotidine 20 Mg/2 Ml Vial IV PUSH 20 mg Q12HR TAMIR Administration Furosemide 20 mg 10/10/24 14:59 Furosemide 20 Mg Tablet PO Q12H PRN edema Glucagon 1 mg 10/10/24 15:02 Glucagon For Inj 1 Mg Vial IM PRN PRN Hypoglycemia Protocol Glucose 15 gm 10/10/24 15:02 Glucose Oral Gel 15 Gm Of Glucse In 37.5 Gm Tube PO PRN PRN Hypoglycemia Protocol Hydromorphone HCl 1 mg 10/11/24 09:31 10/16/24 04:24 Hydromorphone Hcl Inj (*Crx) 2 Mg/Ml Vial IV PUSH 1 mg Q3H PRN Administration Pain Rated 7-10 Levofloxacin/Dextrose 750 mg in 150 mls @ 100 mls/hr 10/15/24 09:00 10/15/24 09:54 Levaquin 750 Mg/D5w 150 Ml IVPB Infused Q48H TAMIR Infusion Dextrose 1,000 mls @ 50 mls/hr 10/15/24 12:43 Dextrose 10% IV CONT .Q20H PRN if PN is interrupted Lactated Ringer's 1,000 mls @ 80 mls/hr 10/15/24 17:50 10/16/24 08:46 Lr - Lactated Ringers Iv IV CONT 80 mls/hr .[id number] TAMIR Administration Ibuprofen 800 mg in 200 mls @ 400 mls/hr 10/15/24 18:00 10/16/24 02:15 Caldolor 800 Mg/200 Ml IVPB Infused Q8H TAMIR Infusion Fat Emulsion Intravenous 250 mls @ 20.833 mls/hr 10/15/24 20:00 10/15/24 20:06 Lipids 20% IVPB 20.83 mls/hr Q24H TAMIR Administration Multivitamins 1.25 ml/ 1,002.5 mls @ 40 mls/hr 10/15/24 20:00 10/15/24 20:04 Multivitamins 1.25 ml/ Amino IV CONT 40 mls/hr Acids/Electrolytes/Dextrose .Q24H TAMIR Administration Protocol Insulin Aspart 2 - 5 units 10/12/24 17:00 10/16/24 08:47 Insulin Aspart (*Bkc) 100 Units/Ml SUB-Q 2 units TIDWM TAMIR Administration Protocol Insulin Glargine 14 units 10/10/24 21:00 10/12/24 01:35 Insulin Glargine (*Bkc) 100 Units/Ml SUB-Q Not Given HS TAMIR Lidocaine 1 patch 10/16/24 09:00 10/16/24 08:52 Lidocaine 5% Patch TRANSDERM 1 patch DAILY TAMIR Administration Lisinopril 10 mg 10/10/24 15:10 10/12/24 14:26 Lisinopril 10 Mg Tablet PO Not Given DAILY TAMIR Metoclopramide HCl 10 mg 10/15/24 18:00 10/16/24 01:48 Metoclopramide Hcl Inj 10 Mg/2 Ml Vial IV PUSH 10 mg Q8H TAMIR Administration Metoprolol Succinate 25 mg 10/10/24 15:10 10/12/24 14:26 Metoprolol Succinate Ext Rel 25 Mg Tabcr PO Not Given DAILY TAMIR Metoprolol Tartrate 2.5 mg 10/12/24 21:00 10/16/24 08:55 Metoprolol Tartrate Inj 5 Mg/5 Ml Vial IV PUSH Not Given Q12HR TAMIR Metoprolol Tartrate 5 mg 10/15/24 18:58 Metoprolol Tartrate Inj 5 Mg/5 Ml Vial IV PUSH Q4H PRN Hypertension Ondansetron HCl 4 mg 10/10/24 03:52 10/14/24 08:27 Ondansetron Inj 4 Mg/2 Ml Vial IV PUSH 4 mg Q4H PRN Administration Nausea Sertraline HCl 50 mg 10/10/24 15:10 10/12/24 14:27 Sertraline Hcl 50 Mg Tablet PO Not Given QAM TAMIR Sodium Chloride 10 ml 10/15/24 22:00 10/16/24 04:55 Central Line Flush IV PUSH 10 ml Q8HR TAMIR Administration Sodium Chloride 10 ml 10/15/24 14:41 Central Line Flush IV PUSH PRN PRN with TPN bag changes Sodium Chloride 20 ml 10/15/24 14:41 Central Line Flush IV PUSH PRN PRN after blood draws Radiology Results: ITS Impressions Abdomen/Pelvis CT 10/11/24 09:55 IMPRESSION: Interval removal of the nasogastric tube when compared with previous examination. Redemonstration of multiple loops of prominent fluid-filled small bowel loops which extend into the pelvis for which small bowel obstruction is suspected. Rectosigmoid diverticulosis and mural thickening with limited evaluation for surrounding inflammatory change secondary to the lack of intravenous contrast and the lack of intrapelvic fat. Retroperitoneal lymphadenopathy is suspected, although detection is limited without intravenous contrast. Perihepatic and perisplenic fluid is now identified, an interval change from previous days examination. Given the culmination of findings (as detailed above) premedication for patient's contrast allergy is recommended with repeat evaluation with intravenous contrast. Upper GI and Small Bowel X-Ray 10/12/24 16:57 IMPRESSION: 1. Normal small bowel transit time to the cecum of 2 hours with no frankly dilated loops of small bowel to suggest obstruction. 2. Large amount of residual contrast within the stomach on the 4 hour delayed images suggestive of gastroparesis. 3. Unchanged 1.6 cm left renal stone. Abdomen X-Ray 10/13/24 09:46 IMPRESSION: Indeterminate loop of likely superimposed small bowel within the right hemipelvis with additional contrast now opacifying the ascending, transverse and descending colons Chest X-Ray 10/15/24 15:09 IMPRESSION: 1. Right PICC line tip at the midsuperior vena cava. 2. Opacities at the left lung base with associated elevation the left hemidiaphragm and favor atelectasis over pneumonia. Labs Labs: Laboratory Results - last 24 hr 10/15/24 10/15/24 10/15/24 06:02 11:33 15:32 WBC RBC Hgb Hct MCV MCH MCHC RDW Plt Count MPV % Immature Plt Fraction Sodium Potassium Chloride Carbon Dioxide Anion Gap BUN Creatinine Estim Creat Clear Calc Estimated GFR Glucose POC Capillary Glucose 70 71 Calcium Phosphorus Magnesium Iron 39 TIBC 255 L % Saturation 15 L Transferrin Ferritin 56.40 Total Bilirubin AST ALT Alkaline Phosphatase Total Protein Albumin Vitamin B12 572.0 Folate 12.0 10/15/24 10/16/24 10/16/24 18:27 00:26 05:24 WBC 5.3 RBC 2.98 L Hgb 8.9 L Hct 28.6 L MCV 96.0 D MCH 29.9 MCHC 31.1 L RDW 17.2 H Plt Count 67 L MPV 11.4 H % Immature Plt Fraction 6.3 Sodium 138 Potassium 3.8 Chloride 104 Carbon Dioxide 32 H Anion Gap 2 L BUN 16 Creatinine 0.61 L Estim Creat Clear Calc Not Reportable Estimated GFR > 60 Glucose 226 H POC Capillary Glucose 95 220 H Calcium 8.5 Phosphorus 3.2 Magnesium 2.0 Iron TIBC % Saturation Transferrin 116 L Ferritin Total Bilirubin 0.3 AST 25 ALT 15 Alkaline Phosphatase 40 Total Protein 4.6 L Albumin 2.4 L Vitamin B12 Folate 10/16/24 08:19 WBC RBC Hgb Hct MCV MCH MCHC RDW Plt Count MPV % Immature Plt Fraction Sodium Potassium Chloride Carbon Dioxide Anion Gap BUN Creatinine Estim Creat Clear Calc Estimated GFR Glucose POC Capillary Glucose 241 H Calcium Phosphorus Magnesium Iron TIBC % Saturation Transferrin Ferritin Total Bilirubin AST ALT Alkaline Phosphatase Total Protein Albumin Vitamin B12 Folate
--- NOTE | 2024-10-16 11:08 | PCNFU ---
Nutrition Follow-Up Complete: Inadequate energy intake related to NPO status as evidenced by current diet orders Meet estimated nutrition needs - Meeting needs with TPN Goal: Pt current nutrition is NPO with ice chips. TPN Clinmix E 08/20 with lipids @ 40 ml/h Nutrition recommendation: Continue current orders. Advance diet as medically able per MD Last recorded weight is 62.3 kg. Bowel Motility: Last BM 10/14 Labs Reviewed: Hgb 8.9, Hct 28.6, Alb 2.4, Cre 0.61, Glu 226 Meds Noted: Lantus, Pepcid, LR, Reglan, Zofran Skin: No skin issues Additional Notes: Pt had exploratory lap yesterday and TPN was started @ 40 ml/h, providing 1182 kcal, 48 g protein, 1210 ml free water. Adequate for needs. Continue TPN until diet can be advanced and pt eating adequately. Monitor for diet orders, intake, tolerance, wt, labs. Follow up in 3 days.
--- NOTE | 2024-10-16 13:05 | WPDANESPN ---
Anes - Prog Note Post-Op Date/Time: 10/16/24 13:05 Cardiovascular status: normal Respiratory status: normal Airway patency: baseline Mental status: baseline Post-Op hydration status: normal Vital Signs: Last Vital Signs Temp 36.1 C L 10/16/24 11:30 Pulse 66 10/16/24 11:30 Resp 16 10/16/24 11:30 BP 113/45 L 10/16/24 11:30 Pulse Ox 96 10/16/24 11:30 O2 Del Method Nasal Cannula 10/15/24 19:42 O2 Flow Rate 3 10/15/24 19:42 FiO2 24 10/12/24 20:00 Pain Score (VAS): 3 I/O: Intake & Output 10/15/24 10/16/24 10/16/24 23:59 07:59 15:59 Intake Total 452 650 6331 Output Total 550 700 Balance 350 -500 1000 Laboratory Tests 10/16/24 05:24 10/16/24 05:24 10/15/24 10/15/24 10/15/24 06:02 15:32 18:27 WBC RBC Hgb Hct MCV MCH MCHC RDW Plt Count MPV % Immature Plt Fraction Sodium Potassium Chloride Carbon Dioxide Anion Gap BUN Creatinine Estim Creat Clear Calc Estimated GFR Glucose POC Capillary Glucose 71 95 Calcium Phosphorus Magnesium Iron 39 TIBC 255 L % Saturation 15 L Transferrin Ferritin 56.40 Total Bilirubin AST ALT Alkaline Phosphatase Total Protein Albumin Triglycerides 10/16/24 10/16/24 10/16/24 00:26 05:24 08:19 WBC 5.3 RBC 2.98 L Hgb 8.9 L Hct 28.6 L MCV 96.0 D MCH 29.9 MCHC 31.1 L RDW 17.2 H Plt Count 67 L MPV 11.4 H % Immature Plt Fraction 6.3 Sodium 138 Potassium 3.8 Chloride 104 Carbon Dioxide 32 H Anion Gap 2 L BUN 16 Creatinine 0.61 L Estim Creat Clear Calc Not Reportable Estimated GFR > 60 Glucose 226 H POC Capillary Glucose 220 H 241 H Calcium 8.5 Phosphorus 3.2 Magnesium 2.0 Iron TIBC % Saturation Transferrin 116 L Ferritin Total Bilirubin 0.3 AST 25 ALT 15 Alkaline Phosphatase 40 Total Protein 4.6 L Albumin 2.4 L Triglycerides Pending 10/16/24 11:35 WBC RBC Hgb Hct MCV MCH MCHC RDW Plt Count MPV % Immature Plt Fraction Sodium Potassium Chloride Carbon Dioxide Anion Gap BUN Creatinine Estim Creat Clear Calc Estimated GFR Glucose POC Capillary Glucose 231 H Calcium Phosphorus Magnesium Iron TIBC % Saturation Transferrin Ferritin Total Bilirubin AST ALT Alkaline Phosphatase Total Protein Albumin Triglycerides Post-procedural complaints: none Patient Feedback: Patient satisfied with anesthetic care.
[2024-10-16 13:11] LABS: Triglycerides 138 mg/dL (<150)
--- NOTE | 2024-10-16 14:57 | PCPTNOTE ---
attempted PT DIEGO wiseman stated she just got the pt back to bed as she was very fatigued and falling asleep in the chair, this PT looked in room to speak with pt and pt was sleeping hard, will follow
--- NOTE | 2024-10-16 15:01 | P.PNIM_ITS ---
Progress Note: A&P Assessment and Plan (1) SBO (small bowel obstruction): Code(s): K56.609 - Unspecified intestinal obstruction, unspecified as to partial versus complete obstruction Status: Acute Assessment and Plan: Patient initially presented with nausea vomiting, concerning for coffee ground emesis Initial CT abdomen 10/10 showed partial small bowel obstruction and NG tube was placed and patient admitted for bowel rest and decompression with a consult to GI. Patient had overall improvement with placement of NG tube, emesis looked more like gastroenteritis. NG tube was then removed however after initiating food patient's nausea vomiting return with mid abdominal pain and further emesis. Repeat CT abdomen 10/11 showed redemonstration of multiple loops of prominent fluid-filled small bowel loops which extend into the pelvis for which small bowel obstruction is suspected. NG tube reinserted. Small bowel series showed SBO NG tube in place for decompression, attempted clamping trial unsuccessful. Increased bloating and left sided abdominal pain. Not passing flatus and no BM today. NPO with IV fluids, consider PICC line and TPN if surgery wishes to keep NPO Status post exploratory laparotomy with abdominal adhesiolysis 10/15/2024 Analgesics: dilaudid 1 mg IV q 3 PRN Antiemetics Monitor I&Os, vital signs, neuro status and patient is a fall risk Monitor serum electrolytes and CBC (2) Shortness of breath: Code(s): R06.02 - Shortness of breath Status: Acute Assessment and Plan: Patient endorsing slight shortness of breath that is exacerbated with deep breathing. No associated cough. WBC WNL. Currently on 2L NC, baseline RA. Has history of COPD. Continue to wean oxygen supplementation as tolerated to maintain SpO2 >88% No documented hypoxia on chart review Abdomen/pelvis CT 10/11 showed small bilateral pleural effusions, with adjacent compressive atelectasis and the remainder of the bilateral lung bases are clear. Chest XR with opacities at the left lung base with associated elevation of the left hemidiaphragm favoring atelectasis over pneumonia Incentive spirometer (3) Anemia: Code(s): D64.9 - Anemia, unspecified Status: Acute Assessment and Plan: Patient with history of anemia hemoglobin stable at this time Iron panel and ferritin pending B12 and folate WNL Monitor Hgb no evidence of GIB Transfuse PRBC if Hgb <7.0 (4) Hypertension: Code(s): I10 - Essential (primary) hypertension Status: Acute Assessment and Plan: Chronic, continue to monitor - holding home lisinopril 10 mg daily and metoprolol 25 mg daily as patient is NPO - continue IV push metoprolol 2.5 mg BID - BP remains well controlled, continue to monitor (5) HLD (hyperlipidemia): Code(s): E78.5 - Hyperlipidemia, unspecified Status: Acute Assessment and Plan: * continue statin when able (6) Diabetes: Code(s): E11.9 - Type 2 diabetes mellitus without complications Status: Acute Assessment and Plan: - hypoglycemia protocol - POC blood glucose q6 as patient is NPO - home medication - metformin 500 mg BID (on hold) - correct regimen ordered - low dose TIDWM (7) Thrombocytopenia: Code(s): D69.6 - Thrombocytopenia, unspecified Status: Acute Assessment and Plan: Chronic patient has been follow and monitored outpatient by primary * trend and monitor for bleeding * Transfuse PLT if <15 * recommend f/u outpatient with construction project engineer Subjective Date/time seen: 10/16/24 15:01 Interval history: No overnight events. Complains abdominal discomfort but overall feeling better. Review of Systems Review of Systems: All systems reviewed & are unremarkable except as noted in HPI and below Exam Narrative: General: female in no acute respiratory distress who is nontoxic appearing, lying semi recumbent in bed. HEENT: Normocephalic. Atraumatic. Extraocular movement intact. Sclera clear and anicteric. No facial asymmetry. NG tube in place. Chest: Lungs are clear to auscultation bilaterally. No wheezes or crackles. CV: Heart was regular rate and rhythm. S1-S2. No murmurs, gallops, or rubs. Abd: Abdomen was soft. Tenderness to palpation. Surgical dressing clean dry and intact, Nondistended. Hypoactive bowel sounds Ext: No clubbing, cyanosis, or edema. DP pulses bilaterally. Neuro: Patient is alert and oriented x4. Speech is clear. Objective Data Vital Signs Vital Signs: Vital Signs - 24 hr 10/15/24 15:45 10/15/24 17:32 10/15/24 17:45 Temperature 99.3 F 100.2 F H Pulse Rate 60 82 77 Respiratory Rate 16 16 18 Blood Pressure 151/68 H 132/106 H 145/56 H Pulse Oximetry 96 100 100 Oxygen Delivery Room Air Simple Face Mask Room Air Oxygen Flow Rate 10 10/15/24 18:00 10/15/24 18:15 10/15/24 18:30 Temperature Pulse Rate 82 81 78 Respiratory Rate 14 14 14 Blood Pressure 141/56 H 145/65 H 136/55 L Pulse Oximetry 93 98 99 Oxygen Delivery Nasal Cannula Nasal Cannula Nasal Cannula Oxygen Flow Rate 3 3 3 10/15/24 18:45 10/15/24 19:15 10/15/24 19:22 Temperature 98.6 F 98.6 F Pulse Rate 78 88 89 Respiratory Rate 14 20 Blood Pressure 132/55 L 161/69 H Pulse Oximetry 98 100 96 Oxygen Delivery Nasal Cannula Oxygen Flow Rate 3 10/15/24 19:30 10/15/24 19:42 10/15/24 19:45 Temperature Pulse Rate 93 82 Respiratory Rate Blood Pressure 152/62 H 135/55 L Pulse Oximetry 99 Oxygen Delivery Nasal Cannula Oxygen Flow Rate 3 10/15/24 19:50 10/15/24 20:00 10/15/24 20:00 Temperature 98.4 F Pulse Rate 82 79 75 Respiratory Rate Blood Pressure 127/51 L Pulse Oximetry 100 100 Oxygen Delivery Oxygen Flow Rate 10/15/24 20:00 10/15/24 20:15 10/15/24 20:30 Temperature 98.4 F Pulse Rate 79 77 73 Respiratory Rate 20 Blood Pressure 126/54 L 126/51 L Pulse Oximetry 100 100 Oxygen Delivery Oxygen Flow Rate 10/15/24 20:45 10/15/24 21:00 10/15/24 21:15 Temperature 97 F L Pulse Rate 73 70 66 Respiratory Rate 20 Blood Pressure 123/54 L 124/55 L 119/55 L Pulse Oximetry 100 97 97 Oxygen Delivery Oxygen Flow Rate 10/15/24 21:29 10/16/24 00:00 10/16/24 00:25 Temperature 97.7 F Pulse Rate 81 62 72 Respiratory Rate 20 Blood Pressure 137/65 Pulse Oximetry 99 Oxygen Delivery Oxygen Flow Rate 10/16/24 04:00 10/16/24 04:50 10/16/24 08:21 Temperature 98 F 98.0 F Pulse Rate 78 70 66 Respiratory Rate 20 16 Blood Pressure 113/62 128/59 L Pulse Oximetry 99 97 Oxygen Delivery Oxygen Flow Rate 10/16/24 08:55 10/16/24 11:30 10/16/24 13:21 Temperature 97.0 F L Pulse Rate 58 L 66 Respiratory Rate 16 Blood Pressure 113/45 L Pulse Oximetry 96 Oxygen Delivery Nasal Cannula Oxygen Flow Rate 3 Intake/Output Intake/Output: Intake & Output 10/13/24 10/14/24 10/15/24 10/16/24 23:59 23:59 23:59 23:59 Intake Total 1999 2930 1050 1200 Output Total 950 550 700 Balance 1999 1979 500 500 Meds/Results Medications: Active Medications Generic Name Dose Route Start Last Admin Trade Name Freq PRN Reason Stop Dose Admin Acetaminophen 650 mg 10/10/24 06:29 Acetaminophen 650 Mg Suppository RECTAL Q4H PRN Pain Rated 5 or Less or Fever Al Hydrox/Mg Hydrox/Simethicone 30 ml 10/12/24 15:45 10/16/24 14:38 Mag Hydrox/Al Hydrox/Simeth 30 Ml Udc FEED TUBE 30 ml Q8HR TAMIR Administration Aspirin 81 mg 10/10/24 15:10 10/12/24 14:26 Aspirin 81 Mg Enteric Tablet PO 11/10/24 15:09 Not Given DAILY TAMIR Atorvastatin Calcium 40 mg 10/10/24 21:00 10/11/24 21:22 Atorvastatin 40 Mg Tablet PO Not Given HS TAMIR Dextrose 12.5 gm 10/10/24 15:02 Dextrose 50% 25 Gm/50 Ml Syringe IV PUSH PRN PRN Hypoglycemia Protocol Diazepam 2.5 mg 10/16/24 09:00 10/16/24 08:48 Diazepam Inj (*Crx) 10 Mg/2 Ml Syringe IV PUSH 2.5 mg DAILY TAMIR Administration Famotidine 20 mg 10/12/24 21:00 10/16/24 08:54 Famotidine 20 Mg/2 Ml Vial IV PUSH 20 mg Q12HR TAMIR Administration Furosemide 20 mg 10/10/24 14:59 Furosemide 20 Mg Tablet PO Q12H PRN edema Glucagon 1 mg 10/10/24 15:02 Glucagon For Inj 1 Mg Vial IM PRN PRN Hypoglycemia Protocol Glucose 15 gm 10/10/24 15:02 Glucose Oral Gel 15 Gm Of Glucse In 37.5 Gm Tube PO PRN PRN Hypoglycemia Protocol Hydromorphone HCl 1 mg 10/11/24 09:31 10/16/24 12:44 Hydromorphone Hcl Inj (*Crx) 2 Mg/Ml Vial IV PUSH 1 mg Q3H PRN Administration Pain Rated 7-10 Levofloxacin/Dextrose 750 mg in 150 mls @ 100 mls/hr 10/15/24 09:00 10/15/24 09:54 Levaquin 750 Mg/D5w 150 Ml IVPB Infused Q48H TAMIR Infusion Dextrose 1,000 mls @ 50 mls/hr 10/15/24 12:43 Dextrose 10% IV CONT .Q20H PRN if PN is interrupted Lactated Ringer's 1,000 mls @ 50 mls/hr 10/15/24 17:50 10/16/24 08:46 Lr - Lactated Ringers Iv IV CONT 80 mls/hr .Q20H TAMIR Administration Ibuprofen 800 mg in 200 mls @ 400 mls/hr 10/15/24 18:00 10/16/24 10:54 Caldolor 800 Mg/200 Ml IVPB 400 mls/hr Q8H TAMIR Administration Fat Emulsion Intravenous 250 mls @ 20.833 mls/hr 10/15/24 20:00 10/15/24 20:06 Lipids 20% IVPB 20.83 mls/hr Q24H TAMIR Administration Multivitamins 1.25 ml/ 1,002.5 mls @ 40 mls/hr 10/15/24 20:00 10/15/24 20:04 Multivitamins 1.25 ml/ Amino IV CONT 40 mls/hr Acids/Electrolytes/Dextrose .Q24H TAMIR Administration Protocol Insulin Aspart 2 - 5 units 10/12/24 17:00 10/16/24 12:18 Insulin Aspart (*Bkc) 100 Units/Ml SUB-Q 2 units TIDWM TAMIR Administration Protocol Insulin Glargine 14 units 10/10/24 21:00 10/12/24 01:35 Insulin Glargine (*Bkc) 100 Units/Ml SUB-Q Not Given HS TAMIR Lidocaine 1 patch 10/16/24 09:00 10/16/24 08:52 Lidocaine 5% Patch TRANSDERM 1 patch DAILY TAMIR Administration Lisinopril 10 mg 10/10/24 15:10 10/12/24 14:26 Lisinopril 10 Mg Tablet PO Not Given DAILY TAMIR Metoclopramide HCl 10 mg 10/15/24 18:00 10/16/24 10:54 Metoclopramide Hcl Inj 10 Mg/2 Ml Vial IV PUSH 10 mg Q8H TAMIR Administration Metoprolol Succinate 25 mg 10/10/24 15:10 10/12/24 14:26 Metoprolol Succinate Ext Rel 25 Mg Tabcr PO Not Given DAILY TAMIR Metoprolol Tartrate 2.5 mg 10/12/24 21:00 10/16/24 08:55 Metoprolol Tartrate Inj 5 Mg/5 Ml Vial IV PUSH Not Given Q12HR TAMIR Metoprolol Tartrate 5 mg 10/15/24 18:58 Metoprolol Tartrate Inj 5 Mg/5 Ml Vial IV PUSH Q4H PRN Hypertension Ondansetron HCl 4 mg 10/10/24 03:52 10/14/24 08:27 Ondansetron Inj 4 Mg/2 Ml Vial IV PUSH 4 mg Q4H PRN Administration Nausea Sertraline HCl 50 mg 10/10/24 15:10 10/12/24 14:27 Sertraline Hcl 50 Mg Tablet PO Not Given QAM TAMIR Sodium Chloride 10 ml 10/15/24 22:00 10/16/24 12:18 Central Line Flush IV PUSH 10 ml Q8HR TAMIR Administration Sodium Chloride 10 ml 10/15/24 14:41 Central Line Flush IV PUSH PRN PRN with TPN bag changes Sodium Chloride 20 ml 10/15/24 14:41 Central Line Flush IV PUSH PRN PRN after blood draws Radiology Results: ITS Impressions Abdomen/Pelvis CT 10/11/24 09:55 IMPRESSION: Interval removal of the nasogastric tube when compared with previous examination. Redemonstration of multiple loops of prominent fluid-filled small bowel loops which extend into the pelvis for which small bowel obstruction is suspected. Rectosigmoid diverticulosis and mural thickening with limited evaluation for surrounding inflammatory change secondary to the lack of intravenous contrast and the lack of intrapelvic fat. Retroperitoneal lymphadenopathy is suspected, although detection is limited without intravenous contrast. Perihepatic and perisplenic fluid is now identified, an interval change from previous days examination. Given the culmination of findings (as detailed above) premedication for patient's contrast allergy is recommended with repeat evaluation with intravenous contrast. Upper GI and Small Bowel X-Ray 10/12/24 16:57 IMPRESSION: 1. Normal small bowel transit time to the cecum of 2 hours with no frankly dilated loops of small bowel to suggest obstruction. 2. Large amount of residual contrast within the stomach on the 4 hour delayed images suggestive of gastroparesis. 3. Unchanged 1.6 cm left renal stone. Abdomen X-Ray 10/13/24 09:46 IMPRESSION: Indeterminate loop of likely superimposed small bowel within the right hemipelvis with additional contrast now opacifying the ascending, transverse and descending colons Chest X-Ray 10/15/24 15:09 IMPRESSION: 1. Right PICC line tip at the midsuperior vena cava. 2. Opacities at the left lung base with associated elevation the left hemidiaphragm and favor atelectasis over pneumonia. Labs Labs: Laboratory Results - last 24 hr 10/15/24 10/15/24 10/15/24 06:02 15:32 18:27 WBC RBC Hgb Hct MCV MCH MCHC RDW Plt Count MPV % Immature Plt Fraction Sodium Potassium Chloride Carbon Dioxide Anion Gap BUN Creatinine Estim Creat Clear Calc Estimated GFR Glucose POC Capillary Glucose 71 95 Calcium Phosphorus Magnesium Iron 39 TIBC 255 L % Saturation 15 L Transferrin Ferritin 56.40 Total Bilirubin AST ALT Alkaline Phosphatase Total Protein Albumin Triglycerides 10/16/24 10/16/24 10/16/24 00:26 05:24 08:19 WBC 5.3 RBC 2.98 L Hgb 8.9 L Hct 28.6 L MCV 96.0 D MCH 29.9 MCHC 31.1 L RDW 17.2 H Plt Count 67 L MPV 11.4 H % Immature Plt Fraction 6.3 Sodium 138 Potassium 3.8 Chloride 104 Carbon Dioxide 32 H Anion Gap 2 L BUN 16 Creatinine 0.61 L Estim Creat Clear Calc Not Reportable Estimated GFR > 60 Glucose 226 H POC Capillary Glucose 220 H 241 H Calcium 8.5 Phosphorus 3.2 Magnesium 2.0 Iron TIBC % Saturation Transferrin 116 L Ferritin Total Bilirubin 0.3 AST 25 ALT 15 Alkaline Phosphatase 40 Total Protein 4.6 L Albumin 2.4 L Triglycerides 138 10/16/24 11:35 WBC RBC Hgb Hct MCV MCH MCHC RDW Plt Count MPV % Immature Plt Fraction Sodium Potassium Chloride Carbon Dioxide Anion Gap BUN Creatinine Estim Creat Clear Calc Estimated GFR Glucose POC Capillary Glucose 231 H Calcium Phosphorus Magnesium Iron TIBC % Saturation Transferrin Ferritin Total Bilirubin AST ALT Alkaline Phosphatase Total Protein Albumin Triglycerides
[2024-10-16] MEDS: AMINO ACIDS 5%/D15W/E-LYTES/CA 1,000 ML with MULTIVITAMINS-12 INJ VIAL 1 1.25 ML, MULTI... 40 ML IV CONT (20:02)
[2024-10-16] MEDS: FAT EMULSIONS IV 20% 250 ML 20.83 ML IVPB (20:04)
[2024-10-16] MEDS: METOPROLOL TARTRATE INJ 5 MG/5 ML VIAL 2.5 MG IV PUSH (21:44)
[2024-10-17] VITALS (14 sets, daily range): BP systolic 114–151; BP diastolic 41–83; PULSE 65–90; RESP 14–20; TEMP 36.5–37.3; O2SAT 90–99
[2024-10-17] MEDS: METOCLOPRAMIDE HCL INJ 10 MG/2 ML VIAL IV PUSH ×3 (01:23→16:58)
[2024-10-17] MEDS: IBUPROFEN IV 800 MG/200 ML 800 MG/200 ML BAG 400 MG IVPB ×3 (01:23→16:58)
[2024-10-17] MEDS: LACTATED RINGERS 1,000 ML 80 ML IV CONT (03:26)
[2024-10-17] MEDS: HYDROmorphone HCL INJ (*CRX) 2 MG/ML VIAL 1 MG IV PUSH ×2 (04:25→21:41)
[2024-10-17] MEDS: CENTRAL LINE FLUSH 10 ML IV PUSH ×3 (05:02→23:02)
[2024-10-17] MEDS: MAG HYDROX/AL HYDROX/SIMETH 30 ML UDC FEED TUBE ×2 (05:02→13:22)
[2024-10-17 06:04] LABS: Hematocrit 30.0 % (37.0-47.0); Hemoglobin 9.4 g/dL (12.0-15.0); Immature Platelet Fraction Pct 6.5 % (0.9-11.2); Mean Corpuscular HGB Conc 31.3 g/dl (32-36); Mean Corpuscular Hemoglobin 30.0 pg (26-34); Mean Corpuscular Volume 95.8 fl (80-100); Platelet Count Result 62 k/mm3 (150-375); Red Blood Count 3.13 M/mm3 (4.2-5.4); White Blood Count 3.9 K/mm3 (4.5-10.0)
[2024-10-17 06:21] LABS: Alanine Aminotransferase 16 U/L (6-35); Albumin Level 2.4 g/dL (3.5-5.1); Alkaline Phosphatase 44 U/L (38-126); Anion Gap 2 mmol/L (4-12); Aspartate Amino Transferase 22 U/L (14-36); Bilirubin,Total 0.4 mg/dL (0.2-1.3); Blood Urea Nitrogen 14 mg/dL (7-17); Calcium 8.4 mg/dL (8.4-10.2); Carbon Dioxide 34 mmol/L (22-30); Chloride 102 mmol/L (98-107); Estimated Glomerular Filt Rate > 60; Glucose 237 mg/dL (65-110); Magnesium 1.9 mg/dL (1.6-2.3); Potassium 3.2 mmol/L (3.4-5.0); Sodium 138 mmol/L (137-145); Total Protein 4.8 g/dL (6.3-8.2)
--- NOTE | 2024-10-17 07:31 | PM.PNGS ---
Progress Note: A&P Assessment and Plan (1) SBO (small bowel obstruction): Code(s): K56.609 - Unspecified intestinal obstruction, unspecified as to partial versus complete obstruction Status: Acute Assessment and Plan: doing well, await ROBF, OOB/IS, cont TPN for now Subjective Subjective Date/Time Seen: 10/17/24 07:31 Interval history: feels ok, still no bowel fxn, mild incisional soreness Review of Systems Review of Systems: All systems reviewed & are unremarkable except as noted in HPI and below Exam Const: General: cooperative, comfortable and no acute distress Resp: Auscultation: clear to auscultation bilaterally Cardio: Rate: regular rate Rhythm: regular rhythm GI: Inspection: normal to inspection, distended and incision GI Palp: Yes abdominal tenderness and Yes Soft to palpation Objective Data Vital Signs Vital Signs: Vital Signs - 24 hr 10/16/24 08:00 10/16/24 08:00 10/16/24 08:21 Temperature 36.7 C Pulse Rate 61 66 Respiratory Rate 16 Blood Pressure 128/59 L Pulse Oximetry 97 97 Oxygen Delivery Nasal Cannula Oxygen Flow Rate 1 10/16/24 08:55 10/16/24 11:30 10/16/24 12:00 Temperature 36.1 C L Pulse Rate 58 L 66 64 Respiratory Rate 16 Blood Pressure 113/45 L Pulse Oximetry 96 Oxygen Delivery Oxygen Flow Rate 10/16/24 13:21 10/16/24 16:00 10/16/24 17:21 Temperature 36.0 C L Pulse Rate 62 63 Respiratory Rate 16 Blood Pressure 113/54 L Pulse Oximetry 96 Oxygen Delivery Nasal Cannula Oxygen Flow Rate 3 10/16/24 20:00 10/16/24 21:00 10/16/24 21:44 Temperature 36.6 C Pulse Rate 63 63 66 Respiratory Rate 14 Blood Pressure 104/41 L Pulse Oximetry 92 Oxygen Delivery Oxygen Flow Rate 10/16/24 23:51 10/17/24 00:00 10/17/24 04:00 Temperature 36.7 C Pulse Rate 63 69 79 Respiratory Rate 14 Blood Pressure 127/52 L Pulse Oximetry 93 Oxygen Delivery Oxygen Flow Rate 10/17/24 05:00 Temperature 36.5 C Pulse Rate 65 Respiratory Rate 14 Blood Pressure 114/41 L Pulse Oximetry 90 Oxygen Delivery Oxygen Flow Rate Intake/Output Intake/Output: Intake & Output 10/14/24 10/15/24 10/16/24 10/17/24 23:59 23:59 23:59 23:59 Intake Total 2930 1050 3808.7 200 Output Total 950 550 900 450 Balance 4899 053 0063.7 -250 Meds/Results Medications: Active Medications Generic Name Dose Route Start Last Admin Trade Name Freq PRN Reason Stop Dose Admin Acetaminophen 650 mg 10/10/24 06:29 Acetaminophen 650 Mg Suppository RECTAL Q4H PRN Pain Rated 5 or Less or Fever Al Hydrox/Mg Hydrox/Simethicone 30 ml 10/12/24 15:45 10/17/24 05:02 Mag Hydrox/Al Hydrox/Simeth 30 Ml Udc FEED TUBE 30 ml Q8HR TAMIR Administration Aspirin 81 mg 10/10/24 15:10 10/12/24 14:26 Aspirin 81 Mg Enteric Tablet PO 11/10/24 15:09 Not Given DAILY TAMIR Atorvastatin Calcium 40 mg 10/10/24 21:00 10/11/24 21:22 Atorvastatin 40 Mg Tablet PO Not Given HS TAMIR Dextrose 12.5 gm 10/10/24 15:02 Dextrose 50% 25 Gm/50 Ml Syringe IV PUSH PRN PRN Hypoglycemia Protocol Diazepam 2.5 mg 10/16/24 09:00 10/16/24 08:48 Diazepam Inj (*Crx) 10 Mg/2 Ml Syringe IV PUSH 2.5 mg DAILY TAMIR Administration Famotidine 20 mg 10/12/24 21:00 10/16/24 21:44 Famotidine 20 Mg/2 Ml Vial IV PUSH 20 mg Q12HR TAMIR Administration Furosemide 20 mg 10/10/24 14:59 Furosemide 20 Mg Tablet PO Q12H PRN edema Glucagon 1 mg 10/10/24 15:02 Glucagon For Inj 1 Mg Vial IM PRN PRN Hypoglycemia Protocol Glucose 15 gm 10/10/24 15:02 Glucose Oral Gel 15 Gm Of Glucse In 37.5 Gm Tube PO PRN PRN Hypoglycemia Protocol Hydromorphone HCl 1 mg 10/11/24 09:31 10/17/24 04:25 Hydromorphone Hcl Inj (*Crx) 2 Mg/Ml Vial IV PUSH 1 mg Q3H PRN Administration Pain Rated 7-10 Dextrose 1,000 mls @ 50 mls/hr 10/15/24 12:43 Dextrose 10% IV CONT .Q20H PRN if PN is interrupted Lactated Ringer's 1,000 mls @ 50 mls/hr 10/15/24 17:50 10/17/24 03:26 Lr - Lactated Ringers Iv IV CONT 80 mls/hr .Q20H TAMIR Administration Ibuprofen 800 mg in 200 mls @ 400 mls/hr 10/15/24 18:00 10/17/24 01:53 Caldolor 800 Mg/200 Ml IVPB Infused Q8H TAMIR Infusion Fat Emulsion Intravenous 250 mls @ 20.833 mls/hr 10/15/24 20:00 10/16/24 20:04 Lipids 20% IVPB 20.83 mls/hr Q24H TAMIR Administration Multivitamins 1.25 ml/ 1,002.5 mls @ 40 mls/hr 10/15/24 20:00 10/16/24 20:02 Multivitamins 1.25 ml/ Amino IV CONT 40 mls/hr Acids/Electrolytes/Dextrose .Q24H TAMIR Administration Protocol Insulin Aspart 2 - 5 units 10/12/24 17:00 10/16/24 17:55 Insulin Aspart (*Bkc) 100 Units/Ml SUB-Q 2 units TIDWM TAMIR Administration Protocol Insulin Glargine 14 units 10/10/24 21:00 10/12/24 01:35 Insulin Glargine (*Bkc) 100 Units/Ml SUB-Q Not Given HS TAMIR Lidocaine 1 patch 10/16/24 09:00 10/16/24 08:52 Lidocaine 5% Patch TRANSDERM 1 patch DAILY TAMIR Administration Lisinopril 10 mg 10/10/24 15:10 10/12/24 14:26 Lisinopril 10 Mg Tablet PO Not Given DAILY TAMIR Metoclopramide HCl 10 mg 10/15/24 18:00 10/17/24 01:23 Metoclopramide Hcl Inj 10 Mg/2 Ml Vial IV PUSH 10 mg Q8H TAMIR Administration Metoprolol Succinate 25 mg 10/10/24 15:10 10/12/24 14:26 Metoprolol Succinate Ext Rel 25 Mg Tabcr PO Not Given DAILY TAMIR Metoprolol Tartrate 2.5 mg 10/12/24 21:00 10/16/24 21:44 Metoprolol Tartrate Inj 5 Mg/5 Ml Vial IV PUSH 2.5 mg Q12HR TAMIR Administration Metoprolol Tartrate 5 mg 10/15/24 18:58 Metoprolol Tartrate Inj 5 Mg/5 Ml Vial IV PUSH Q4H PRN Hypertension Ondansetron HCl 4 mg 10/10/24 03:52 10/14/24 08:27 Ondansetron Inj 4 Mg/2 Ml Vial IV PUSH 4 mg Q4H PRN Administration Nausea Sertraline HCl 50 mg 10/10/24 15:10 10/12/24 14:27 Sertraline Hcl 50 Mg Tablet PO Not Given QAM TAMIR Sodium Chloride 10 ml 10/15/24 22:00 10/17/24 05:02 Central Line Flush IV PUSH 10 ml Q8HR TAMIR Administration Sodium Chloride 10 ml 10/15/24 14:41 Central Line Flush IV PUSH PRN PRN with TPN bag changes Sodium Chloride 20 ml 10/15/24 14:41 Central Line Flush IV PUSH PRN PRN after blood draws Radiology Results: ITS Impressions Abdomen/Pelvis CT 10/11/24 09:55 IMPRESSION: Interval removal of the nasogastric tube when compared with previous examination. Redemonstration of multiple loops of prominent fluid-filled small bowel loops which extend into the pelvis for which small bowel obstruction is suspected. Rectosigmoid diverticulosis and mural thickening with limited evaluation for surrounding inflammatory change secondary to the lack of intravenous contrast and the lack of intrapelvic fat. Retroperitoneal lymphadenopathy is suspected, although detection is limited without intravenous contrast. Perihepatic and perisplenic fluid is now identified, an interval change from previous days examination. Given the culmination of findings (as detailed above) premedication for patient's contrast allergy is recommended with repeat evaluation with intravenous contrast. Upper GI and Small Bowel X-Ray 10/12/24 16:57 IMPRESSION: 1. Normal small bowel transit time to the cecum of 2 hours with no frankly dilated loops of small bowel to suggest obstruction. 2. Large amount of residual contrast within the stomach on the 4 hour delayed images suggestive of gastroparesis. 3. Unchanged 1.6 cm left renal stone. Abdomen X-Ray 10/13/24 09:46 IMPRESSION: Indeterminate loop of likely superimposed small bowel within the right hemipelvis with additional contrast now opacifying the ascending, transverse and descending colons Chest X-Ray 10/15/24 15:09 IMPRESSION: 1. Right PICC line tip at the midsuperior vena cava. 2. Opacities at the left lung base with associated elevation the left hemidiaphragm and favor atelectasis over pneumonia. Labs Labs: Laboratory Results - last 24 hr 10/16/24 10/16/24 10/16/24 05:24 08:19 11:35 WBC RBC Hgb Hct MCV MCH MCHC RDW Plt Count MPV % Immature Plt Fraction Sodium Potassium Chloride Carbon Dioxide Anion Gap BUN Creatinine Estim Creat Clear Calc Estimated GFR Glucose POC Capillary Glucose 241 H 231 H Calcium Phosphorus Magnesium Total Bilirubin AST ALT Alkaline Phosphatase Total Protein Albumin Triglycerides 138 10/16/24 10/16/24 10/17/24 17:18 23:47 05:46 WBC RBC Hgb Hct MCV MCH MCHC RDW Plt Count MPV % Immature Plt Fraction Sodium Potassium Chloride Carbon Dioxide Anion Gap BUN Creatinine Estim Creat Clear Calc Estimated GFR Glucose POC Capillary Glucose 230 H 239 H 188 H Calcium Phosphorus Magnesium Total Bilirubin AST ALT Alkaline Phosphatase Total Protein Albumin Triglycerides 10/17/24 05:53 WBC 3.9 L RBC 3.13 L Hgb 9.4 L Hct 30.0 L MCV 95.8 MCH 30.0 MCHC 31.3 L RDW 17.4 H Plt Count 62 L MPV 10.1 % Immature Plt Fraction 6.5 Sodium 138 Potassium 3.2 L Chloride 102 Carbon Dioxide 34 H Anion Gap 2 L BUN 14 Creatinine 0.56 L Estim Creat Clear Calc Not Reportable Estimated GFR > 60 Glucose 237 H POC Capillary Glucose Calcium 8.4 Phosphorus 2.2 L Magnesium 1.9 Total Bilirubin 0.4 AST 22 ALT 16 Alkaline Phosphatase 44 Total Protein 4.8 L Albumin 2.4 L Triglycerides
[2024-10-17] MEDS: POTASSIUM CHLORIDE INJ 40 MEQ in SODIUM CHLORIDE 0.9% IV 500 ML 130 MEQ IVPB (08:53)
[2024-10-17] MEDS: FAMOTIDINE 20 MG/2 ML VIAL IV PUSH ×2 (08:53→20:55)
[2024-10-17] MEDS: METOPROLOL TARTRATE INJ 5 MG/5 ML VIAL 2.5 MG IV PUSH ×2 (08:53→20:55)
[2024-10-17] MEDS: diazePAM INJ (*CRX) 10 MG/2 ML SYRINGE 2.5 MG IV PUSH (08:54)
[2024-10-17] MEDS: LIDOCAINE 5% PATCH 1 PATCH TRANSDERM (08:54)
[2024-10-17] MEDS: INSULIN ASPART (*BKC) 100 UNITS/ML SUB-Q ×2 (09:05→12:14)
[2024-10-17 12:06] LABS: Thyroid Stimulating Hormone Reflex 2.560 uIU/mL (0.465-4.68)
[2024-10-17 12:10] LABS: Ferritin 58.70 ng/mL (11.1-264)
--- NOTE | 2024-10-17 12:38 | P.PNIM_ITS ---
Progress Note: A&P Assessment and Plan (1) SBO (small bowel obstruction): Code(s): K56.609 - Unspecified intestinal obstruction, unspecified as to partial versus complete obstruction Status: Acute Assessment and Plan: Patient initially presented with nausea vomiting, concerning for coffee ground emesis Initial CT abdomen 10/10 showed partial small bowel obstruction and NG tube was placed and patient admitted for bowel rest and decompression with a consult to GI. Patient had overall improvement with placement of NG tube, emesis looked more like gastroenteritis. NG tube was then removed however after initiating food patient's nausea vomiting return with mid abdominal pain and further emesis. Repeat CT abdomen 10/11 showed redemonstration of multiple loops of prominent fluid-filled small bowel loops which extend into the pelvis for which small bowel obstruction is suspected. NG tube reinserted. Small bowel series showed SBO NG tube in place for decompression, attempted clamping trial unsuccessful. Increased bloating and left sided abdominal pain. Not passing flatus and no BM today. NPO with IV fluids, consider PICC line and TPN if surgery wishes to keep NPO Status post exploratory laparotomy with abdominal adhesiolysis 10/15/2024 Analgesics: dilaudid 1 mg IV q 3 PRN Antiemetics Monitor I&Os, vital signs, neuro status and patient is a fall risk Monitor serum electrolytes and CBC Awaiting return of bowel function (2) Shortness of breath: Code(s): R06.02 - Shortness of breath Status: Acute Assessment and Plan: Patient endorsing slight shortness of breath that is exacerbated with deep breathing. No associated cough. WBC WNL. Currently on 2L NC, baseline RA. Has history of COPD. Continue to wean oxygen supplementation as tolerated to maintain SpO2 >88% No documented hypoxia on chart review Abdomen/pelvis CT 10/11 showed small bilateral pleural effusions, with adjacent compressive atelectasis and the remainder of the bilateral lung bases are clear. Chest XR with opacities at the left lung base with associated elevation of the left hemidiaphragm favoring atelectasis over pneumonia Incentive spirometer (3) Anemia: Code(s): D64.9 - Anemia, unspecified Status: Acute Assessment and Plan: Patient with history of anemia hemoglobin stable at this time Iron panel and ferritin pending B12 and folate WNL Monitor Hgb no evidence of GIB Transfuse PRBC if Hgb <7.0 (4) Hypertension: Code(s): I10 - Essential (primary) hypertension Status: Acute Assessment and Plan: Chronic, continue to monitor - holding home lisinopril 10 mg daily and metoprolol 25 mg daily as patient is NPO - continue IV push metoprolol 2.5 mg BID - BP remains well controlled, continue to monitor (5) HLD (hyperlipidemia): Code(s): E78.5 - Hyperlipidemia, unspecified Status: Acute Assessment and Plan: * continue statin when able (6) Diabetes: Code(s): E11.9 - Type 2 diabetes mellitus without complications Status: Acute Assessment and Plan: - hypoglycemia protocol - POC blood glucose q6 as patient is NPO - home medication - metformin 500 mg BID (on hold) - correct regimen ordered - low dose TIDWM (7) Thrombocytopenia: Code(s): D69.6 - Thrombocytopenia, unspecified Status: Acute Assessment and Plan: Chronic patient has been follow and monitored outpatient by primary * trend and monitor for bleeding * Transfuse PLT if <15 * recommend f/u outpatient with stereotyper helper Subjective Date/time seen: 10/17/24 12:38 Interval history: No bowel movement. Not passing gas. Abdomen is sore from the surgery. More alert and oriented today. Review of Systems Review of Systems: All systems reviewed & are unremarkable except as noted in HPI and below Exam Narrative: General: female in no acute respiratory distress who is nontoxic appearing HEENT: Normocephalic. Atraumatic. Extraocular movement intact. Sclera clear and anicteric. No facial asymmetry. NG tube in place. Chest: Lungs are clear to auscultation bilaterally. No wheezes or crackles. CV: Heart was regular rate and rhythm. S1-S2. No murmurs, gallops, or rubs. Abd: Abdomen was soft. Tenderness to palpation. Surgical dressing clean dry and intact, Nondistended. Hypoactive bowel sounds Ext: No clubbing, cyanosis, or edema. DP pulses bilaterally. Neuro: Patient is alert and oriented x4. Speech is clear. Objective Data Vital Signs Vital Signs: Vital Signs - 24 hr 10/16/24 13:21 10/16/24 16:00 10/16/24 17:21 Temperature 96.8 F L Pulse Rate 62 63 Respiratory Rate 16 Blood Pressure 113/54 L Pulse Oximetry 96 Oxygen Delivery Nasal Cannula Oxygen Flow Rate 3 10/16/24 20:00 10/16/24 21:00 10/16/24 21:44 Temperature 97.9 F Pulse Rate 63 63 66 Respiratory Rate 14 Blood Pressure 104/41 L Pulse Oximetry 92 Oxygen Delivery Oxygen Flow Rate 10/16/24 23:51 10/17/24 00:00 10/17/24 04:00 Temperature 98.1 F Pulse Rate 63 69 79 Respiratory Rate 14 Blood Pressure 127/52 L Pulse Oximetry 93 Oxygen Delivery Oxygen Flow Rate 10/17/24 05:00 10/17/24 07:59 10/17/24 08:00 Temperature 97.7 F Pulse Rate 65 83 Respiratory Rate 14 Blood Pressure 114/41 L Pulse Oximetry 90 92 Oxygen Delivery Room Air Oxygen Flow Rate 10/17/24 08:28 10/17/24 08:53 Temperature 99 F Pulse Rate 69 69 Respiratory Rate 16 Blood Pressure 151/60 H Pulse Oximetry 96 Oxygen Delivery Oxygen Flow Rate Intake/Output Intake/Output: Intake & Output 10/14/24 10/15/24 10/16/24 10/17/24 23:59 23:59 23:59 23:59 Intake Total 2930 1050 3808.7 650 Output Total 950 550 900 450 Balance 2625 868 0458.7 200 Meds/Results Medications: Active Medications Generic Name Dose Route Start Last Admin Trade Name Brittany PRN Reason Stop Dose Admin Acetaminophen 650 mg 10/10/24 06:29 Acetaminophen 650 Mg Suppository RECTAL Q4H PRN Pain Rated 5 or Less or Fever Al Hydrox/Mg Hydrox/Simethicone 30 ml 10/12/24 15:45 10/17/24 05:02 Mag Hydrox/Al Hydrox/Simeth 30 Ml Udc FEED TUBE 30 ml Q8HR [facility] Administration Aspirin 81 mg 10/10/24 15:10 10/12/24 14:26 Aspirin 81 Mg Enteric Tablet PO 11/10/24 15:09 Not Given DAILY TAMIR Atorvastatin Calcium 40 mg 10/10/24 21:00 10/11/24 21:22 Atorvastatin 40 Mg Tablet PO Not Given HS [facility] Dextrose 12.5 gm 10/10/24 15:02 Dextrose 50% 25 Gm/50 Ml Syringe IV PUSH PRN PRN Hypoglycemia Protocol Diazepam 2.5 mg 10/16/24 09:00 10/17/24 08:54 Diazepam Inj (*Crx) 10 Mg/2 Ml Syringe IV PUSH 2.5 mg DAILY TAMIR Administration Famotidine 20 mg 10/12/24 21:00 10/17/24 08:53 Famotidine 20 Mg/2 Ml Vial IV PUSH 20 mg Q12HR TAMIR Administration Furosemide 20 mg 10/10/24 14:59 Furosemide 20 Mg Tablet PO Q12H PRN edema Glucagon 1 mg 10/10/24 15:02 Glucagon For Inj 1 Mg Vial IM PRN PRN Hypoglycemia Protocol Glucose 15 gm 10/10/24 15:02 Glucose Oral Gel 15 Gm Of Glucse In 37.5 Gm Tube PO PRN PRN Hypoglycemia Protocol Hydromorphone HCl 1 mg 10/11/24 09:31 10/17/24 04:25 Hydromorphone Hcl Inj (*Crx) 2 Mg/Ml Vial IV PUSH 1 mg Q3H PRN Administration Pain Rated 7-10 Dextrose 1,000 mls @ 50 mls/hr 10/15/24 12:43 Dextrose 10% IV CONT .Q20H PRN if PN is interrupted Lactated Ringer's 1,000 mls @ 50 mls/hr 10/15/24 17:50 10/17/24 03:26 Lr - Lactated Ringers Iv IV CONT 80 mls/hr .Q20H TAMIR Administration Ibuprofen 800 mg in 200 mls @ 400 mls/hr 10/15/24 18:00 10/17/24 09:40 Caldolor 800 Mg/200 Ml IVPB Infused Q8H TAMIR Infusion Fat Emulsion Intravenous 250 mls @ 20.833 mls/hr 10/15/24 20:00 10/17/24 08:05 Lipids 20% IVPB Infused Q24H TAMIR Infusion Multivitamins 1.25 ml/ 1,002.5 mls @ 40 mls/hr 10/15/24 20:00 10/16/24 20:02 Multivitamins 1.25 ml/ Amino IV CONT 40 mls/hr Acids/Electrolytes/Dextrose .Q24H TAMIR Administration Protocol Potassium Chloride 40 meq/ 520 mls @ 130 mls/hr 10/17/24 08:45 07/12/25 08:53 Sodium Chloride IVPB 10/17/24 12:44 130 mls/hr ONCE ONE Administration Insulin Aspart 2 - 5 units 10/12/24 17:00 10/17/24 12:14 Insulin Aspart (*Bkc) 100 Units/Ml SUB-Q 2 units TIDWM TAMIR Administration Protocol Insulin Glargine 14 units 10/10/24 21:00 10/12/24 01:35 Insulin Glargine (*Bkc) 100 Units/Ml SUB-Q Not Given HS TAMIR Lidocaine 1 patch 10/16/24 09:00 10/17/24 08:54 Lidocaine 5% Patch TRANSDERM 1 patch DAILY ATMIR Administration Lisinopril 10 mg 10/10/24 15:10 10/12/24 14:26 Lisinopril 10 Mg Tablet PO Not Given DAILY TAMIR Metoclopramide HCl 10 mg 10/15/24 18:00 10/17/24 09:57 Metoclopramide Hcl Inj 10 Mg/2 Ml Vial IV PUSH 10 mg Q8H TAMIR Administration Metoprolol Succinate 25 mg 10/10/24 15:10 10/12/24 14:26 Metoprolol Succinate Ext Rel 25 Mg Tabcr PO Not Given DAILY TAMIR Metoprolol Tartrate 2.5 mg 10/12/24 21:00 10/17/24 08:53 Metoprolol Tartrate Inj 5 Mg/5 Ml Vial IV PUSH 2.5 mg Q12HR TAMIR Administration Metoprolol Tartrate 5 mg 10/15/24 18:58 Metoprolol Tartrate Inj 5 Mg/5 Ml Vial IV PUSH Q4H PRN Hypertension Ondansetron HCl 4 mg 10/10/24 03:52 10/14/24 08:27 Ondansetron Inj 4 Mg/2 Ml Vial IV PUSH 4 mg Q4H PRN Administration Nausea Sertraline HCl 50 mg 10/10/24 15:10 10/12/24 14:27 Sertraline Hcl 50 Mg Tablet PO Not Given QAM TAMIR Sodium Chloride 10 ml 10/15/24 22:00 10/17/24 05:02 Central Line Flush IV PUSH 10 ml Q8HR TAMIR Administration Sodium Chloride 10 ml 10/15/24 14:41 Central Line Flush IV PUSH PRN PRN with TPN bag changes Sodium Chloride 20 ml 10/15/24 14:41 Central Line Flush IV PUSH PRN PRN after blood draws Radiology Results: ITS Impressions Abdomen/Pelvis CT 10/11/24 09:55 IMPRESSION: Interval removal of the nasogastric tube when compared with previous examination. Redemonstration of multiple loops of prominent fluid-filled small bowel loops which extend into the pelvis for which small bowel obstruction is suspected. Rectosigmoid diverticulosis and mural thickening with limited evaluation for surrounding inflammatory change secondary to the lack of intravenous contrast and the lack of intrapelvic fat. Retroperitoneal lymphadenopathy is suspected, although detection is limited without intravenous contrast. Perihepatic and perisplenic fluid is now identified, an interval change from previous days examination. Given the culmination of findings (as detailed above) premedication for patient's contrast allergy is recommended with repeat evaluation with intravenous contrast. Upper GI and Small Bowel X-Ray 10/12/24 16:57 IMPRESSION: 1. Normal small bowel transit time to the cecum of 2 hours with no frankly dilated loops of small bowel to suggest obstruction. 2. Large amount of residual contrast within the stomach on the 4 hour delayed images suggestive of gastroparesis. 3. Unchanged 1.6 cm left renal stone. Abdomen X-Ray 10/13/24 09:46 IMPRESSION: Indeterminate loop of likely superimposed small bowel within the right hemipelvis with additional contrast now opacifying the ascending, transverse and descending colons Chest X-Ray 10/15/24 15:09 IMPRESSION: 1. Right PICC line tip at the midsuperior vena cava. 2. Opacities at the left lung base with associated elevation the left hemidiaphragm and favor atelectasis over pneumonia. Labs Labs: Laboratory Results - last 24 hr 10/16/24 10/16/24 10/16/24 05:24 17:18 23:47 WBC RBC Hgb Hct MCV MCH MCHC RDW Plt Count MPV % Immature Plt Fraction Sodium Potassium Chloride Carbon Dioxide Anion Gap BUN Creatinine Estim Creat Clear Calc Estimated GFR Glucose POC Capillary Glucose 230 H 239 H Calcium Phosphorus Magnesium Ferritin Total Bilirubin AST ALT Alkaline Phosphatase Total Protein Albumin Triglycerides 138 TSH (Reflex) 10/17/24 10/17/24 10/17/24 05:46 05:53 08:10 WBC 3.9 L RBC 3.13 L Hgb 9.4 L Hct 30.0 L MCV 95.8 MCH 30.0 MCHC 31.3 L RDW 17.4 H Plt Count 62 L MPV 10.1 % Immature Plt Fraction 6.5 Sodium 138 Potassium 3.2 L Chloride 102 Carbon Dioxide 34 H Anion Gap 2 L BUN 14 Creatinine 0.56 L Estim Creat Clear Calc Not Reportable Estimated GFR > 60 Glucose 237 H POC Capillary Glucose 188 H 217 H Calcium 8.4 Phosphorus 2.2 L Magnesium 1.9 Ferritin 58.70 Total Bilirubin 0.4 AST 22 ALT 16 Alkaline Phosphatase 44 Total Protein 4.8 L Albumin 2.4 L Triglycerides TSH (Reflex) 2.560 10/17/24 11:57 WBC RBC Hgb Hct MCV MCH MCHC RDW Plt Count MPV % Immature Plt Fraction Sodium Potassium Chloride Carbon Dioxide Anion Gap BUN Creatinine Estim Creat Clear Calc Estimated GFR Glucose POC Capillary Glucose 203 H Calcium Phosphorus Magnesium Ferritin Total Bilirubin AST ALT Alkaline Phosphatase Total Protein Albumin Triglycerides TSH (Reflex)
[2024-10-17] MEDS: AMINO ACIDS 5%/D15W/E-LYTES/CA 1,000 ML with MULTIVITAMINS-12 INJ VIAL 1 1.25 ML, MULTI... 40 ML IV CONT (20:53)
[2024-10-17] MEDS: FAT EMULSIONS IV 20% 250 ML 20.83 ML IVPB (20:54)
[2024-10-17] MEDS: ONDANSETRON INJ 4 MG/2 ML VIAL IV PUSH (23:01)
[2024-10-17] MEDS: OLANZapine 5 MG, WATER, STERILE FOR INJECTION 2.1 ML IM (23:40)
[2024-10-18] VITALS (15 sets, daily range): BP systolic 109–153; BP diastolic 49–70; PULSE 63–90; RESP 14–18; TEMP 36.2–36.8; O2SAT 90–99
--- NOTE | 2024-10-18 00:37 | PC.NURSE ---
Around 23:00 pt bed alarm was on, pt was confused, disoriented to place, pulled her NG tube and picc line out, DATA ABSTRACTOR Nikki was notified. Charge nurse contacted the pt's daughter and updated her and got a consent for inserting a new picc . pt was put on mittens restrains, however took them off and tried to pull the NG tube again, DATA ABSTRACTOR was updated, pt got Zyprexa as ordered. currently pt seem calmer. will keep monitoring. KUP was done to verify NG placement.
[2024-10-18] MEDS: LACTATED RINGERS 1,000 ML 80 ML IV CONT (01:52)
[2024-10-18] MEDS: IBUPROFEN IV 800 MG/200 ML 800 MG/200 ML BAG 400 MG IVPB ×3 (01:54→17:04)
--- NOTE | 2024-10-18 03:35 | PC.NURSE ---
pt still confused, vs normal. However seem calmer and fell asleep, mittens are off for now. getting IVF as ordered. NG tube was verified by KULWINDER Perez and connected back to suction.
[2024-10-18] MEDS: CENTRAL LINE FLUSH 10 ML IV PUSH ×3 (06:15→22:05)
[2024-10-18] MEDS: MAG HYDROX/AL HYDROX/SIMETH 30 ML UDC FEED TUBE ×2 (06:15→22:03)
[2024-10-18 06:48] LABS: Hematocrit 32.1 % (37.0-47.0); Hemoglobin 10.0 g/dL (12.0-15.0); Immature Platelet Fraction Pct 8.8 % (0.9-11.2); Mean Corpuscular HGB Conc 31.2 g/dl (32-36); Mean Corpuscular Hemoglobin 29.9 pg (26-34); Mean Corpuscular Volume 96.1 fl (80-100); Platelet Count Result 57 k/mm3 (150-375); Red Blood Count 3.34 M/mm3 (4.2-5.4); White Blood Count 3.7 K/mm3 (4.5-10.0)
[2024-10-18 07:08] LABS: Alanine Aminotransferase 16 U/L (6-35); Albumin Level 2.5 g/dL (3.5-5.1); Alkaline Phosphatase 43 U/L (38-126); Anion Gap 4 mmol/L (4-12); Aspartate Amino Transferase 24 U/L (14-36); Bilirubin,Total 0.6 mg/dL (0.2-1.3); Blood Urea Nitrogen 11 mg/dL (7-17); Calcium 8.7 mg/dL (8.4-10.2); Carbon Dioxide 31 mmol/L (22-30); Chloride 105 mmol/L (98-107); Estimated Glomerular Filt Rate > 60; Glucose 128 mg/dL (65-110); Magnesium 1.9 mg/dL (1.6-2.3); Potassium 3.3 mmol/L (3.4-5.0); Sodium 140 mmol/L (137-145); Total Protein 4.9 g/dL (6.3-8.2)
--- NOTE | 2024-10-18 07:38 | P.PNGS_ITS ---
Progress Note: A&P Assessment and Plan (1) SBO (small bowel obstruction): Code(s): K56.609 - Unspecified intestinal obstruction, unspecified as to partial versus complete obstruction Status: Acute Assessment and Plan: awaiting return of bowel function, continue TPN for now, encouraged out bed and use IS Subjective Subjective Date/Time Seen: 10/18/24 07:38 Interval history: no acute issues, slightly more alert today, mild incisional soreness Review of Systems Review of Systems: All systems reviewed & are unremarkable except as noted in HPI and below Exam Const: General: cooperative, comfortable, no acute distress, ill appearing and tired appearing Resp: Auscultation: diminished lung sounds Cardio: Rate: regular rate Rhythm: regular rhythm GI: Inspection: normal to inspection, distended and incision GI Palp: Yes abdominal tenderness, Yes Soft to palpation, No Guarding due to palpation present (GI) and No Rigid due to palpation Objective Data Vital Signs Vital Signs: Vital Signs - 24 hr 10/17/24 07:59 10/17/24 08:00 10/17/24 08:28 Temperature 37.2 C Pulse Rate 83 69 Respiratory Rate 16 Blood Pressure 151/60 H Pulse Oximetry 92 96 Oxygen Delivery Room Air 10/17/24 08:53 10/17/24 12:00 10/17/24 13:00 Temperature 37.3 C Pulse Rate 69 72 82 Respiratory Rate 16 Blood Pressure 136/83 Pulse Oximetry 96 Oxygen Delivery 10/17/24 16:00 10/17/24 17:00 10/17/24 20:00 Temperature 36.6 C Pulse Rate 75 72 90 Respiratory Rate 20 18 Blood Pressure 133/49 L Pulse Oximetry 97 99 Oxygen Delivery Room Air 10/17/24 20:00 10/17/24 20:55 10/17/24 21:00 Temperature 36.7 C Pulse Rate 84 71 71 Respiratory Rate 16 Blood Pressure 125/57 L Pulse Oximetry 95 Oxygen Delivery 10/18/24 00:00 10/18/24 00:48 10/18/24 01:58 Temperature 36.8 C 36.3 C L Pulse Rate 77 68 90 Respiratory Rate 14 18 Blood Pressure 121/62 140/70 Pulse Oximetry 95 99 Oxygen Delivery 10/18/24 04:00 10/18/24 05:00 Temperature 36.5 C Pulse Rate 69 72 Respiratory Rate 14 Blood Pressure 115/50 L Pulse Oximetry 93 Oxygen Delivery Intake/Output Intake/Output: Intake & Output 10/15/24 10/16/24 10/17/24 10/18/24 23:59 23:59 23:59 23:59 Intake Total 1050 3808.7 2844 200 Output Total 550 900 750 Balance 500 2908.7 2094 200 Meds/Results Medications: Active Medications Generic Name Dose Route Start Last Admin Trade Name Freq PRN Reason Stop Dose Admin Acetaminophen 650 mg 10/10/24 06:29 Acetaminophen 650 Mg Suppository RECTAL Q4H PRN Pain Rated 5 or Less or Fever Al Hydrox/Mg Hydrox/Simethicone 30 ml 10/12/24 15:45 10/18/24 06:15 Mag Hydrox/Al Hydrox/Simeth 30 Ml Udc FEED TUBE 30 ml Q8HR TAMIR Administration Aspirin 81 mg 10/10/24 15:10 10/12/24 14:26 Aspirin 81 Mg Enteric Tablet PO 11/10/24 15:09 Not Given DAILY TAMIR Atorvastatin Calcium 40 mg 10/10/24 21:00 10/11/24 21:22 Atorvastatin 40 Mg Tablet PO Not Given HS TAMIR Dextrose 12.5 gm 10/10/24 15:02 Dextrose 50% 25 Gm/50 Ml Syringe IV PUSH PRN PRN Hypoglycemia Protocol Diazepam 2.5 mg 10/16/24 09:00 10/17/24 08:54 Diazepam Inj (*Crx) 10 Mg/2 Ml Syringe IV PUSH 2.5 mg DAILY TAMIR Administration Famotidine 20 mg 10/12/24 21:00 10/17/24 20:55 Famotidine 20 Mg/2 Ml Vial IV PUSH 20 mg Q12HR TAMIR Administration Furosemide 20 mg 10/10/24 14:59 Furosemide 20 Mg Tablet PO Q12H PRN edema Glucagon 1 mg 10/10/24 15:02 Glucagon For Inj 1 Mg Vial IM PRN PRN Hypoglycemia Protocol Glucose 15 gm 10/10/24 15:02 Glucose Oral Gel 15 Gm Of Glucse In 37.5 Gm Tube PO PRN PRN Hypoglycemia Protocol Hydromorphone HCl 1 mg 10/11/24 09:31 10/17/24 21:41 Hydromorphone Hcl Inj (*Crx) 2 Mg/Ml Vial IV PUSH 1 mg Q3H PRN Administration Pain Rated 7-10 Dextrose 1,000 mls @ 50 mls/hr 10/15/24 12:43 Dextrose 10% IV CONT .Q20H PRN if PN is interrupted Lactated Ringer's 1,000 mls @ 50 mls/hr 10/15/24 17:50 10/18/24 01:52 Lr - Lactated Ringers Iv IV CONT 80 mls/hr .Q20H TAMIR Administration Ibuprofen 800 mg in 200 mls @ 400 mls/hr 10/15/24 18:00 10/18/24 02:24 Caldolor 800 Mg/200 Ml IVPB Infused Q8H TAMIR Infusion Fat Emulsion Intravenous 250 mls @ 20.833 mls/hr 10/15/24 20:00 10/17/24 20:54 Lipids 20% IVPB 20.83 mls/hr Q24H TAMIR Administration Multivitamins 1.25 ml/ 1,002.5 mls @ 40 mls/hr 10/15/24 20:00 10/17/24 20:53 Multivitamins 1.25 ml/ Amino IV CONT 40 mls/hr Acids/Electrolytes/Dextrose .Q24H TAMIR Administration Protocol Insulin Aspart 2 - 5 units 10/12/24 17:00 10/17/24 16:44 Insulin Aspart (*Bkc) 100 Units/Ml SUB-Q Not Given TIDWM [facility] Protocol Insulin Glargine 14 units 10/10/24 21:00 10/12/24 01:35 Insulin Glargine (*Bkc) 100 Units/Ml SUB-Q Not Given HS TAMIR Lidocaine 1 patch 10/16/24 09:00 10/17/24 08:54 Lidocaine 5% Patch TRANSDERM 1 patch DAILY TAMIR Administration Lisinopril 10 mg 10/10/24 15:10 10/12/24 14:26 Lisinopril 10 Mg Tablet PO Not Given DAILY TAMIR Metoclopramide HCl 10 mg 10/15/24 18:00 10/18/24 04:02 Metoclopramide Hcl Inj 10 Mg/2 Ml Vial IV PUSH Not Given Q8H TAMIR Metoprolol Succinate 25 mg 10/10/24 15:10 10/12/24 14:26 Metoprolol Succinate Ext Rel 25 Mg Tabcr PO Not Given DAILY TAMIR Metoprolol Tartrate 2.5 mg 10/12/24 21:00 10/17/24 20:55 Metoprolol Tartrate Inj 5 Mg/5 Ml Vial IV PUSH 2.5 mg Q12HR TAMIR Administration Metoprolol Tartrate 5 mg 10/15/24 18:58 Metoprolol Tartrate Inj 5 Mg/5 Ml Vial IV PUSH Q4H PRN Hypertension Ondansetron HCl 4 mg 10/10/24 03:52 10/17/24 23:01 Ondansetron Inj 4 Mg/2 Ml Vial IV PUSH 4 mg Q4H PRN Administration Nausea Sertraline HCl 50 mg 10/10/24 15:10 10/12/24 14:27 Sertraline Hcl 50 Mg Tablet PO Not Given QAM TAMIR Sodium Chloride 10 ml 10/15/24 22:00 10/18/24 06:15 Central Line Flush IV PUSH 10 ml Q8HR TAMIR Administration Sodium Chloride 10 ml 10/15/24 14:41 Central Line Flush IV PUSH PRN PRN with TPN bag changes Sodium Chloride 20 ml 10/15/24 14:41 Central Line Flush IV PUSH PRN PRN after blood draws Radiology Results: ITS Impressions Abdomen/Pelvis CT 10/11/24 09:55 IMPRESSION: Interval removal of the nasogastric tube when compared with previous examination. Redemonstration of multiple loops of prominent fluid-filled small bowel loops which extend into the pelvis for which small bowel obstruction is suspected. Rectosigmoid diverticulosis and mural thickening with limited evaluation for surrounding inflammatory change secondary to the lack of intravenous contrast and the lack of intrapelvic fat. Retroperitoneal lymphadenopathy is suspected, although detection is limited without intravenous contrast. Perihepatic and perisplenic fluid is now identified, an interval change from previous days examination. Given the culmination of findings (as detailed above) premedication for patient's contrast allergy is recommended with repeat evaluation with intravenous contrast. Upper GI and Small Bowel X-Ray 10/12/24 16:57 IMPRESSION: 1. Normal small bowel transit time to the cecum of 2 hours with no frankly dilated loops of small bowel to suggest obstruction. 2. Large amount of residual contrast within the stomach on the 4 hour delayed images suggestive of gastroparesis. 3. Unchanged 1.6 cm left renal stone. Chest X-Ray 10/15/24 15:09 IMPRESSION: 1. Right PICC line tip at the midsuperior vena cava. 2. Opacities at the left lung base with associated elevation the left hemidiaphragm and favor atelectasis over pneumonia. Abdomen X-Ray 10/18/24 06:18 Impression: NG tube in place, side port just below the diaphragm. Labs Labs: Laboratory Results - last 24 hr 10/17/24 10/17/24 10/17/24 05:53 08:10 11:57 WBC RBC Hgb Hct MCV MCH MCHC RDW Plt Count MPV % Immature Plt Fraction Sodium Potassium Chloride Carbon Dioxide Anion Gap BUN Creatinine Estim Creat Clear Calc Estimated GFR Glucose POC Capillary Glucose 217 H 203 H Calcium Phosphorus Magnesium Ferritin 58.70 Total Bilirubin AST ALT Alkaline Phosphatase Total Protein Albumin TSH (Reflex) 2.560 10/17/24 10/17/24 10/18/24 16:04 22:54 02:02 WBC RBC Hgb Hct MCV MCH MCHC RDW Plt Count MPV % Immature Plt Fraction Sodium Potassium Chloride Carbon Dioxide Anion Gap BUN Creatinine Estim Creat Clear Calc Estimated GFR Glucose POC Capillary Glucose 168 H 226 H 165 H Calcium Phosphorus Magnesium Ferritin Total Bilirubin AST ALT Alkaline Phosphatase Total Protein Albumin TSH (Reflex) 10/18/24 10/18/24 05:46 06:04 WBC 3.7 L RBC 3.34 L Hgb 10.0 L Hct 32.1 L MCV 96.1 MCH 29.9 MCHC 31.2 L RDW 17.2 H Plt Count 57 L MPV 11.0 H % Immature Plt Fraction 8.8 Sodium 140 Potassium 3.3 L Chloride 105 Carbon Dioxide 31 H Anion Gap 4 BUN 11 Creatinine 0.49 L Estim Creat Clear Calc Not Reportable Estimated GFR > 60 Glucose 128 H POC Capillary Glucose 140 H Calcium 8.7 Phosphorus 2.6 Magnesium 1.9 Ferritin Total Bilirubin 0.6 AST 24 ALT 16 Alkaline Phosphatase 43 Total Protein 4.9 L Albumin 2.5 L TSH (Reflex)
[2024-10-18] MEDS: diazePAM INJ (*CRX) 10 MG/2 ML SYRINGE 2.5 MG IV PUSH (08:50)
[2024-10-18] MEDS: LIDOCAINE 5% PATCH 1 PATCH TRANSDERM (08:54)
[2024-10-18] MEDS: METOPROLOL TARTRATE INJ 5 MG/5 ML VIAL 2.5 MG IV PUSH ×2 (08:54→22:00)
[2024-10-18] MEDS: FAMOTIDINE 20 MG/2 ML VIAL IV PUSH ×2 (08:54→21:59)
[2024-10-18] MEDS: POTASSIUM CHLORIDE INJ 40 MEQ in SODIUM CHLORIDE 0.9% IV 500 ML 130 MEQ IVPB (10:45)
--- NOTE | 2024-10-18 11:16 | PC.NURSE ---
Patient pulled out NG tube at aprx 1045. Dr. Taylor paged thru exchange at aprx 1100 for further orders.
[2024-10-18] MEDS: METOCLOPRAMIDE HCL INJ 10 MG/2 ML VIAL IV PUSH ×2 (11:30→17:04)
[2024-10-18 11:43] LABS: Triglycerides 124 mg/dL (<150)
--- NOTE | 2024-10-18 12:09 | P.PNIM_ITS ---
Progress Note: A&P Assessment and Plan (1) SBO (small bowel obstruction): Code(s): K56.609 - Unspecified intestinal obstruction, unspecified as to partial versus complete obstruction Status: Acute Assessment and Plan: Patient initially presented with nausea vomiting, concerning for coffee ground emesis Initial CT abdomen 10/10 showed partial small bowel obstruction and NG tube was placed and patient admitted for bowel rest and decompression with a consult to GI. Patient had overall improvement with placement of NG tube, emesis looked more like gastroenteritis. NG tube was then removed however after initiating food patient's nausea vomiting return with mid abdominal pain and further emesis. Repeat CT abdomen 10/11 showed redemonstration of multiple loops of prominent fluid-filled small bowel loops which extend into the pelvis for which small bowel obstruction is suspected. NG tube reinserted. Small bowel series showed SBO NG tube in place for decompression, attempted clamping trial unsuccessful. Increased bloating and left sided abdominal pain. Not passing flatus and no BM today. NPO with IV fluids, consider PICC line and TPN if surgery wishes to keep NPO Status post exploratory laparotomy with abdominal adhesiolysis 10/15/2024 Analgesics: dilaudid 1 mg IV q 3 PRN Antiemetics Monitor I&Os, vital signs, neuro status and patient is a fall risk Monitor serum electrolytes and CBC Awaiting return of bowel function (2) Shortness of breath: Code(s): R06.02 - Shortness of breath Status: Acute Assessment and Plan: Patient endorsing slight shortness of breath that is exacerbated with deep breathing. No associated cough. WBC WNL. Currently on 2L NC, baseline RA. Has history of COPD. Continue to wean oxygen supplementation as tolerated to maintain SpO2 >88% No documented hypoxia on chart review Abdomen/pelvis CT 10/11 showed small bilateral pleural effusions, with adjacent compressive atelectasis and the remainder of the bilateral lung bases are clear. Chest XR with opacities at the left lung base with associated elevation of the left hemidiaphragm favoring atelectasis over pneumonia Incentive spirometer (3) Anemia: Code(s): D64.9 - Anemia, unspecified Status: Acute Assessment and Plan: Patient with history of anemia hemoglobin stable at this time Iron panel and ferritin pending B12 and folate WNL Monitor Hgb no evidence of GIB Transfuse PRBC if Hgb <7.0 (4) Hypertension: Code(s): I10 - Essential (primary) hypertension Status: Acute Assessment and Plan: Chronic, continue to monitor - holding home lisinopril 10 mg daily and metoprolol 25 mg daily as patient is NPO - continue IV push metoprolol 2.5 mg BID - BP remains well controlled, continue to monitor (5) HLD (hyperlipidemia): Code(s): E78.5 - Hyperlipidemia, unspecified Status: Acute Assessment and Plan: * continue statin when able (6) Diabetes: Code(s): E11.9 - Type 2 diabetes mellitus without complications Status: Acute Assessment and Plan: - hypoglycemia protocol - POC blood glucose q6 as patient is NPO - home medication - metformin 500 mg BID (on hold) - correct regimen ordered - low dose TIDWM (7) Thrombocytopenia: Code(s): D69.6 - Thrombocytopenia, unspecified Status: Acute Assessment and Plan: Chronic patient has been follow and monitored outpatient by primary * trend and monitor for bleeding * Transfuse PLT if <15 * recommend f/u outpatient with restaurant 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 Patient had no bowel movement yet. Patient sleepy this a.m.. Review of Systems Review of Systems: All systems reviewed & are unremarkable except as noted in HPI and below Exam Narrative: General: female in no acute respiratory distress who is nontoxic appearing HEENT: Normocephalic. Atraumatic. Extraocular movement intact. Sclera clear and anicteric. No facial asymmetry. NG tube in place. Chest: Lungs are clear to auscultation bilaterally. No wheezes or crackles. CV: Heart was regular rate and rhythm. S1-S2. No murmurs, gallops, or rubs. Abd: Abdomen was soft. Tenderness to palpation. Surgical dressing clean dry and intact, Nondistended. Hypoactive bowel sounds Ext: No clubbing, cyanosis, or edema. DP pulses bilaterally. Neuro: Patient is alert and oriented x4. Speech is clear. Objective Data Vital Signs Vital Signs: Vital Signs - 24 hr 10/17/24 13:00 10/17/24 16:00 10/17/24 17:00 Temperature 99.1 F 97.8 F Pulse Rate 82 75 72 Respiratory Rate 16 20 Blood Pressure 136/83 133/49 L Pulse Oximetry 96 97 Oxygen Delivery 10/17/24 20:00 10/17/24 20:00 10/17/24 20:55 Temperature Pulse Rate 90 84 71 Respiratory Rate 18 Blood Pressure Pulse Oximetry 99 Oxygen Delivery Room Air 10/17/24 21:00 10/18/24 00:00 10/18/24 00:48 Temperature 98.1 F 98.2 F Pulse Rate 71 77 68 Respiratory Rate 16 14 Blood Pressure 125/57 L 121/62 Pulse Oximetry 95 95 Oxygen Delivery 10/18/24 01:58 10/18/24 04:00 10/18/24 05:00 Temperature 97.4 F L 97.7 F Pulse Rate 90 69 72 Respiratory Rate 18 14 Blood Pressure 140/70 115/50 L Pulse Oximetry 99 93 Oxygen Delivery Intake/Output Intake/Output: Intake & Output 10/15/24 10/16/24 10/17/24 10/18/24 23:59 23:59 23:59 23:59 Intake Total 1050 3808.7 2844 400 Output Total 550 900 750 Balance 500 2908.7 2094 400 Meds/Results Medications: Active Medications Generic Name Dose Route Start Last Admin Trade Name Freq PRN Reason Stop Dose Admin Acetaminophen 650 mg 10/10/24 06:29 Acetaminophen 650 Mg Suppository RECTAL Q4H PRN Pain Rated 5 or Less or Fever Al Hydrox/Mg Hydrox/Simethicone 30 ml 10/12/24 15:45 10/18/24 06:15 Mag Hydrox/Al Hydrox/Simeth 30 Ml Udc FEED TUBE 30 ml Q8HR TAMIR Administration Aspirin 81 mg 10/10/24 15:10 10/12/24 14:26 Aspirin 81 Mg Enteric Tablet PO 11/10/24 15:09 Not Given DAILY TAMIR Atorvastatin Calcium 40 mg 10/10/24 21:00 10/11/24 21:22 Atorvastatin 40 Mg Tablet PO Not Given HS TAMIR Dextrose 12.5 gm 10/10/24 15:02 Dextrose 50% 25 Gm/50 Ml Syringe IV PUSH PRN PRN Hypoglycemia Protocol Diazepam 2.5 mg 10/16/24 09:00 10/18/24 08:50 Diazepam Inj (*Crx) 10 Mg/2 Ml Syringe IV PUSH 2.5 mg DAILY TAMIR Administration Famotidine 20 mg 10/12/24 21:00 10/18/24 08:54 Famotidine 20 Mg/2 Ml Vial IV PUSH 20 mg Q12HR TAMIR Administration Furosemide 20 mg 10/10/24 14:59 Furosemide 20 Mg Tablet PO Q12H PRN edema Glucagon 1 mg 10/10/24 15:02 Glucagon For Inj 1 Mg Vial IM PRN PRN Hypoglycemia Protocol Glucose 15 gm 10/10/24 15:02 Glucose Oral Gel 15 Gm Of Glucse In 37.5 Gm Tube PO PRN PRN Hypoglycemia Protocol Hydromorphone HCl 1 mg 10/11/24 09:31 10/17/24 21:41 Hydromorphone Hcl Inj (*Crx) 2 Mg/Ml Vial IV PUSH 1 mg Q3H PRN Administration Pain Rated 7-10 Dextrose 1,000 mls @ 50 mls/hr 10/15/24 12:43 Dextrose 10% IV CONT .Q20H PRN if PN is interrupted Lactated Ringer's 1,000 mls @ 50 mls/hr 10/15/24 17:50 10/18/24 01:52 Lr - Lactated Ringers Iv IV CONT 80 mls/hr .Q20H TAMIR Administration Ibuprofen 800 mg in 200 mls @ 400 mls/hr 10/15/24 18:00 10/18/24 11:31 Caldolor 800 Mg/200 Ml IVPB Infused Q8H TAMIR Infusion Fat Emulsion Intravenous 250 mls @ 20.833 mls/hr 10/15/24 20:00 10/17/24 20:54 Lipids 20% IVPB 20.83 mls/hr Q24H TAMIR Administration Multivitamins 1.25 ml/ 1,002.5 mls @ 40 mls/hr 10/15/24 20:00 10/17/24 20:53 Multivitamins 1.25 ml/ Amino IV CONT 40 mls/hr Acids/Electrolytes/Dextrose .Q24H TAMIR Administration Protocol Potassium Chloride 40 meq/ 520 mls @ 130 mls/hr 10/18/24 09:00 10/18/24 10:45 Sodium Chloride IVPB 10/18/24 12:59 130 mls/hr ONCE ONE Administration Insulin Aspart 2 - 5 units 10/12/24 17:00 10/18/24 08:44 Insulin Aspart (*Bkc) 100 Units/Ml SUB-Q Not Given TIDWM [facility] Protocol Insulin Glargine 14 units 10/10/24 21:00 10/12/24 01:35 Insulin Glargine (*Bkc) 100 Units/Ml SUB-Q Not Given HS TAMIR Lidocaine 1 patch 10/16/24 09:00 10/18/24 08:54 Lidocaine 5% Patch TRANSDERM 1 patch DAILY TAMIR Administration Lisinopril 10 mg 10/10/24 15:10 10/12/24 14:26 Lisinopril 10 Mg Tablet PO Not Given DAILY TAMIR Metoclopramide HCl 10 mg 10/15/24 18:00 10/18/24 11:30 Metoclopramide Hcl Inj 10 Mg/2 Ml Vial IV PUSH 10 mg Q8H TAMIR Administration Metoprolol Succinate 25 mg 10/10/24 15:10 10/12/24 14:26 Metoprolol Succinate Ext Rel 25 Mg Tabcr PO Not Given DAILY TAMIR Metoprolol Tartrate 2.5 mg 10/12/24 21:00 10/18/24 08:54 Metoprolol Tartrate Inj 5 Mg/5 Ml Vial IV PUSH 2.5 mg Q12HR TAMIR Administration Metoprolol Tartrate 5 mg 10/15/24 18:58 Metoprolol Tartrate Inj 5 Mg/5 Ml Vial IV PUSH Q4H PRN Hypertension Ondansetron HCl 4 mg 10/10/24 03:52 10/17/24 23:01 Ondansetron Inj 4 Mg/2 Ml Vial IV PUSH 4 mg Q4H PRN Administration Nausea Sertraline HCl 50 mg 10/10/24 15:10 10/12/24 14:27 Sertraline Hcl 50 Mg Tablet PO Not Given QAM TAMIR Sodium Chloride 10 ml 10/15/24 22:00 10/18/24 06:15 Central Line Flush IV PUSH 10 ml Q8HR TAMIR Administration Sodium Chloride 10 ml 10/15/24 14:41 Central Line Flush IV PUSH PRN PRN with TPN bag changes Sodium Chloride 20 ml 10/15/24 14:41 Central Line Flush IV PUSH PRN PRN after blood draws Radiology Results: ITS Impressions Abdomen/Pelvis CT 10/11/24 09:55 IMPRESSION: Interval removal of the nasogastric tube when compared with previous examination. Redemonstration of multiple loops of prominent fluid-filled small bowel loops which extend into the pelvis for which small bowel obstruction is suspected. Rectosigmoid diverticulosis and mural thickening with limited evaluation for surrounding inflammatory change secondary to the lack of intravenous contrast and the lack of intrapelvic fat. Retroperitoneal lymphadenopathy is suspected, although detection is limited without intravenous contrast. Perihepatic and perisplenic fluid is now identified, an interval change from previous days examination. Given the culmination of findings (as detailed above) premedication for patient's contrast allergy is recommended with repeat evaluation with intravenous contrast. Upper GI and Small Bowel X-Ray 10/12/24 16:57 IMPRESSION: 1. Normal small bowel transit time to the cecum of 2 hours with no frankly dilated loops of small bowel to suggest obstruction. 2. Large amount of residual contrast within the stomach on the 4 hour delayed images suggestive of gastroparesis. 3. Unchanged 1.6 cm left renal stone. Abdomen X-Ray 10/18/24 06:18 Impression: NG tube in place, side port just below the diaphragm. Chest X-Ray 10/18/24 10:27 Impression: Support tubes in place, as above. Minimal right pleural effusion and probable minimal right basilar atelectatic change. Labs Labs: Laboratory Results - last 24 hr 10/17/24 10/17/24 10/17/24 05:53 11:57 16:04 WBC RBC Hgb Hct MCV MCH MCHC RDW Plt Count MPV % Immature Plt Fraction Sodium Potassium Chloride Carbon Dioxide Anion Gap BUN Creatinine Estim Creat Clear Calc Estimated GFR Glucose POC Capillary Glucose 203 H 168 H Calcium Phosphorus Magnesium Ferritin 58.70 Total Bilirubin AST ALT Alkaline Phosphatase Total Protein Albumin Triglycerides 10/17/24 10/18/24 10/18/24 22:54 02:02 05:46 WBC RBC Hgb Hct MCV MCH MCHC RDW Plt Count MPV % Immature Plt Fraction Sodium Potassium Chloride Carbon Dioxide Anion Gap BUN Creatinine Estim Creat Clear Calc Estimated GFR Glucose POC Capillary Glucose 226 H 165 H 140 H Calcium Phosphorus Magnesium Ferritin Total Bilirubin AST ALT Alkaline Phosphatase Total Protein Albumin Triglycerides 10/18/24 10/18/24 10/18/24 05:58 06:04 11:51 WBC 3.7 L RBC 3.34 L Hgb 10.0 L Hct 32.1 L MCV 96.1 MCH 29.9 MCHC 31.2 L RDW 17.2 H Plt Count 57 L MPV 11.0 H % Immature Plt Fraction 8.8 Sodium 140 Potassium 3.3 L Chloride 105 Carbon Dioxide 31 H Anion Gap 4 BUN 11 Creatinine 0.49 L Estim Creat Clear Calc Not Reportable Estimated GFR > 60 Glucose 128 H POC Capillary Glucose 113 H Calcium 8.7 Phosphorus 2.6 Magnesium 1.9 Ferritin Total Bilirubin 0.6 AST 24 ALT 16 Alkaline Phosphatase 43 Total Protein 4.9 L Albumin 2.5 L Triglycerides 124
[2024-10-18] MEDS: FAT EMULSIONS IV 20% 250 ML 20.83 ML IVPB (22:06)
[2024-10-18] MEDS: AMINO ACIDS 5%/D15W/E-LYTES/CA 1,000 ML with MULTIVITAMINS-12 INJ VIAL 1 1.25 ML, MULTI... 40 ML IV CONT (22:10)
[2024-10-19] VITALS (11 sets, daily range): BP systolic 123–137; BP diastolic 48–57; PULSE 63–74; RESP 18; TEMP 36.6; O2SAT 93–96
[2024-10-19] MEDS: METOCLOPRAMIDE HCL INJ 10 MG/2 ML VIAL IV PUSH ×3 (01:40→17:22)
[2024-10-19] MEDS: IBUPROFEN IV 800 MG/200 ML 800 MG/200 ML BAG 400 MG IVPB ×2 (01:40→10:36)
[2024-10-19] MEDS: MAG HYDROX/AL HYDROX/SIMETH 30 ML UDC FEED TUBE (06:04)
--- NOTE | 2024-10-19 10:25 | PM.PNGS ---
Progress Note: A&P Assessment and Plan (1) SBO (small bowel obstruction): Code(s): K56.609 - Unspecified intestinal obstruction, unspecified as to partial versus complete obstruction Status: Acute Assessment and Plan: Resolved following exploratory laparotomy with adhesiolysis. Bowel function has returned. NG accidentally removed overnight, will leave out. Will have nursing perform bedside swallow test and start clear liquids if she passes. Continue TPN for today. Will stop additional IV fluids later today if tolerating clear liquids. Potassium 3.3 today, will replace with 40 meq IV this am. Repeat labs tomorrow. Start daily gauze dressing changes to midline incision Increase activity, up to chair today, PT/OT following. Encouraged IS use. Plan I have discussed the patient's case and plan of care with Dr. Taylor. Subjective Subjective Date/Time Seen: 10/19/24 10:25 Post Op day: 4 Patient reports: no new complaints, feels better, flatus, bowel movement and afebrile Interval history: Chart reviewed since last seen. Patient answers orientation questions appropriately, but is slightly confused. She seems forgetful with things that have happened in the past few days. She did not recall therapy working with her yesterday. She did not recall the NG tube coming out overnight. Patient denies and, nausea, or vomiting. Her NG tube was accidentally removed overnight 2 bowel movements in past 24 hours. Passing flatus. Patient feels thirsty and hungry. No other complaints at this time. Review of Systems Review of Systems: ROS unobtainable: Yes unobtainable due to mental status (Confused, difficult to obtain) Exam Const: General: comfortable and no acute distress Orientation/consciousness: patient oriented x3 and confusion GI: Inspection: non-distended GI Palp: Yes Soft to palpation, Yes Tenderness to palpation present (GI) (expected incisional tenderness), No Guarding due to palpation present (GI) and No Rebound tenderness present Auscultation: normal bowel sounds Other: Midline incisions with keenan intact, scant dried bloody drainage on gauze near umbilicus with very mild erythema localized near incision at umbilicus, no drainage. Extrem: General: normal to inspection, no calf tenderness and no edema Objective Data Vital Signs Vital Signs: Vital Signs - 24 hr 10/18/24 12:00 10/18/24 13:00 10/18/24 14:27 Temperature 97.7 F Pulse Rate 64 87 Respiratory Rate 18 Blood Pressure 109/49 L Pulse Oximetry 94 Oxygen Delivery Room Air Fraction of Inspired Oxygen 10/18/24 16:00 10/18/24 17:00 10/18/24 20:00 Temperature 97.8 F Pulse Rate 65 85 Respiratory Rate 18 Blood Pressure 115/50 L Pulse Oximetry 95 Oxygen Delivery Room Air Fraction of Inspired Oxygen 10/18/24 20:00 10/18/24 21:00 10/18/24 21:43 Temperature 97.2 F L Pulse Rate 63 65 Respiratory Rate 18 Blood Pressure 153/65 H Pulse Oximetry 95 90 Oxygen Delivery Room Air Fraction of Inspired Oxygen 21 10/18/24 22:00 10/19/24 00:00 10/19/24 02:15 Temperature 97.8 F Pulse Rate 67 68 63 Respiratory Rate 18 Blood Pressure 123/57 L Pulse Oximetry 93 Oxygen Delivery Fraction of Inspired Oxygen Intake/Output Intake/Output: Intake & Output 10/16/24 10/17/24 10/18/24 10/19/24 23:59 23:59 23:59 23:59 Intake Total 3808.7 2844 2092.5 Output Total 900 750 Balance 2908.7 2094 2092.5 Meds/Results Medications: Active Medications Generic Name Dose Route Start Last Admin Trade Name Freq PRN Reason Stop Dose Admin Acetaminophen 650 mg 10/10/24 06:29 Acetaminophen 650 Mg Suppository RECTAL Q4H PRN Pain Rated 5 or Less or Fever Al Hydrox/Mg Hydrox/Simethicone 30 ml 10/12/24 15:45 10/19/24 06:04 Mag Hydrox/Al Hydrox/Simeth 30 Ml Udc FEED TUBE 30 ml Q8HR TAMIR Administration Aspirin 81 mg 10/10/24 15:10 10/12/24 14:26 Aspirin 81 Mg Enteric Tablet PO 11/10/24 15:09 Not Given DAILY TAMIR Atorvastatin Calcium 40 mg 10/10/24 21:00 10/11/24 21:22 Atorvastatin 40 Mg Tablet PO Not Given HS TAMIR Dextrose 12.5 gm 10/10/24 15:02 Dextrose 50% 25 Gm/50 Ml Syringe IV PUSH PRN PRN Hypoglycemia Protocol Diazepam 2.5 mg 10/16/24 09:00 10/18/24 08:50 Diazepam Inj (*Crx) 10 Mg/2 Ml Syringe IV PUSH 2.5 mg DAILY TAMIR Administration Famotidine 20 mg 10/12/24 21:00 10/18/24 21:59 Famotidine 20 Mg/2 Ml Vial IV PUSH 20 mg Q12HR TAMIR Administration Furosemide 20 mg 10/10/24 14:59 Furosemide 20 Mg Tablet PO Q12H PRN edema Glucagon 1 mg 10/10/24 15:02 Glucagon For Inj 1 Mg Vial IM PRN PRN Hypoglycemia Protocol Glucose 15 gm 10/10/24 15:02 Glucose Oral Gel 15 Gm Of Glucse In 37.5 Gm Tube PO PRN PRN Hypoglycemia Protocol Hydromorphone HCl 1 mg 10/11/24 09:31 10/17/24 21:41 Hydromorphone Hcl Inj (*Crx) 2 Mg/Ml Vial IV PUSH 1 mg Q3H PRN Administration Pain Rated 7-10 Dextrose 1,000 mls @ 50 mls/hr 10/15/24 12:43 Dextrose 10% IV CONT .Q20H PRN if PN is interrupted Lactated Ringer's 1,000 mls @ 50 mls/hr 10/15/24 17:50 10/18/24 01:52 Lr - Lactated Ringers Iv IV CONT 80 mls/hr .Q20H TAMIR Administration Ibuprofen 800 mg in 200 mls @ 400 mls/hr 10/15/24 18:00 10/19/24 01:40 Caldolor 800 Mg/200 Ml IVPB 400 mls/hr Q8H TAMIR Administration Fat Emulsion Intravenous 250 mls @ 20.833 mls/hr 10/15/24 20:00 10/18/24 22:06 Lipids 20% IVPB 20.83 mls/hr Q24H TAMIR Administration Multivitamins 1.25 ml/ 1,002.5 mls @ 40 mls/hr 10/15/24 20:00 10/18/24 22:10 Multivitamins 1.25 ml/ Amino IV CONT 40 mls/hr Acids/Electrolytes/Dextrose .Q24H TAMIR Administration Protocol Insulin Aspart 2 - 5 units 10/12/24 17:00 10/18/24 17:04 Insulin Aspart (*Bkc) 100 Units/Ml SUB-Q Not Given TIDWM [facility] Protocol Insulin Glargine 14 units 10/10/24 21:00 10/12/24 01:35 Insulin Glargine (*Bkc) 100 Units/Ml SUB-Q Not Given HS TAMIR Lidocaine 1 patch 10/16/24 09:00 10/18/24 08:54 Lidocaine 5% Patch TRANSDERM 1 patch DAILY TAMIR Administration Lisinopril 10 mg 10/10/24 15:10 10/12/24 14:26 Lisinopril 10 Mg Tablet PO Not Given DAILY TAMIR Metoclopramide HCl 10 mg 10/15/24 18:00 10/19/24 01:40 Metoclopramide Hcl Inj 10 Mg/2 Ml Vial IV PUSH 10 mg Q8H TAMIR Administration Metoprolol Succinate 25 mg 10/10/24 15:10 10/12/24 14:26 Metoprolol Succinate Ext Rel 25 Mg Tabcr PO Not Given DAILY TAMIR Metoprolol Tartrate 2.5 mg 10/12/24 21:00 10/18/24 22:00 Metoprolol Tartrate Inj 5 Mg/5 Ml Vial IV PUSH 2.5 mg Q12HR TAMIR Administration Metoprolol Tartrate 5 mg 10/15/24 18:58 Metoprolol Tartrate Inj 5 Mg/5 Ml Vial IV PUSH Q4H PRN Hypertension Miscellaneous Information 1 each 10/19/24 00:01 Please Renew Clinimix. Per [employer] Procedure, It Will Discontinue If Not Renewed XX 11/18/24 00:00 CLARIFY TAMIR Ondansetron HCl 4 mg 10/10/24 03:52 10/17/24 23:01 Ondansetron Inj 4 Mg/2 Ml Vial IV PUSH 4 mg Q4H PRN Administration Nausea Sertraline HCl 50 mg 10/10/24 15:10 10/12/24 14:27 Sertraline Hcl 50 Mg Tablet PO Not Given QAM TAMIR Sodium Chloride 10 ml 10/15/24 22:00 10/19/24 06:01 Central Line Flush IV PUSH Not Given Q8HR TAMIR Sodium Chloride 10 ml 10/15/24 14:41 Central Line Flush IV PUSH PRN PRN with TPN bag changes Sodium Chloride 20 ml 10/15/24 14:41 Central Line Flush IV PUSH PRN PRN after blood draws Radiology Results: ITS Impressions Abdomen/Pelvis CT 10/11/24 09:55 IMPRESSION: Interval removal of the nasogastric tube when compared with previous examination. Redemonstration of multiple loops of prominent fluid-filled small bowel loops which extend into the pelvis for which small bowel obstruction is suspected. Rectosigmoid diverticulosis and mural thickening with limited evaluation for surrounding inflammatory change secondary to the lack of intravenous contrast and the lack of intrapelvic fat. Retroperitoneal lymphadenopathy is suspected, although detection is limited without intravenous contrast. Perihepatic and perisplenic fluid is now identified, an interval change from previous days examination. Given the culmination of findings (as detailed above) premedication for patient's contrast allergy is recommended with repeat evaluation with intravenous contrast. Upper GI and Small Bowel X-Ray 10/12/24 16:57 IMPRESSION: 1. Normal small bowel transit time to the cecum of 2 hours with no frankly dilated loops of small bowel to suggest obstruction. 2. Large amount of residual contrast within the stomach on the 4 hour delayed images suggestive of gastroparesis. 3. Unchanged 1.6 cm left renal stone. Abdomen X-Ray 10/18/24 06:18 Impression: NG tube in place, side port just below the diaphragm. Chest X-Ray 10/18/24 10:27 Impression: Support tubes in place, as above. Minimal right pleural effusion and probable minimal right basilar atelectatic change. Labs Labs: Laboratory Results - last 24 hr 10/18/24 10/18/24 10/18/24 05:58 11:51 16:25 POC Capillary Glucose 113 H 130 H Triglycerides 124 10/19/24 10/19/24 10/19/24 00:10 06:54 08:32 POC Capillary Glucose 152 H 151 H 169 H Triglycerides
[2024-10-19] MEDS: METOPROLOL TARTRATE INJ 5 MG/5 ML VIAL 2.5 MG IV PUSH ×2 (10:35→20:19)
[2024-10-19] MEDS: FAMOTIDINE 20 MG/2 ML VIAL IV PUSH ×2 (10:36→20:14)
[2024-10-19] MEDS: LIDOCAINE 5% PATCH 1 PATCH TRANSDERM (10:37)
[2024-10-19 11:58] LABS: Hematocrit 21.3 % (37.0-47.0); Immature Granulocyte Percent A 0.4 % (0-0.5); Immature Platelet Fraction Pct 4.4 % (0.9-11.2); Lymphocytes Absolute Auto 0.35 K/mm3 (0.9-3.2); Mean Corpuscular HGB Conc 31.5 g/dl (32-36); Mean Corpuscular Hemoglobin 29.6 pg (26-34); Mean Corpuscular Volume 94.2 fl (80-100); Nucleated Red Blood Cells Absolute Auto 0.000 K/mm3 (0.0-0.012); Nucleated Red Blood Cells Perc 0.0 % (0.0-0.2); Platelet Count Result 49 k/mm3 (150-375); Red Blood Count 2.26 M/mm3 (4.2-5.4); White Blood Count 2.7 K/mm3 (4.5-10.0)
[2024-10-19 12:09] LABS: INR 1.4; Prothrombin Time 16.8 Seconds (11.1-14.7)
[2024-10-19 12:10] LABS: Partial Thromboplastin Time 29.9 Seconds (22.3-36.8)
[2024-10-19 12:13] LABS: Potassium 2.4 mmol/L (3.4-5.0)
[2024-10-19 12:14] LABS: Alanine Aminotransferase 9 U/L (6-35); Albumin Level 1.6 g/dL (3.5-5.1); Alkaline Phosphatase 31 U/L (38-126); Anion Gap 13 mmol/L (4-12); Aspartate Amino Transferase 16 U/L (14-36); Bilirubin,Total < 0.1 mg/dL (0.2-1.3); Blood Urea Nitrogen 5 mg/dL (7-17); Calcium 6.0 mg/dL (8.4-10.2); Carbon Dioxide 19 mmol/L (22-30); Chloride 106 mmol/L (98-107); Estimated Glomerular Filt Rate > 60; Glucose 138 mg/dL (65-110); Magnesium 1.1 mg/dL (1.6-2.3); Sodium 138 mmol/L (137-145); Total Protein 3.5 g/dL (6.3-8.2)
[2024-10-19] MEDS: KCL 40 MEQ/WATER 100 ML 100 ML 25 ML IVPB (12:15)
[2024-10-19 12:22] LABS: Transferrin 82 mg/dL (206-381)
[2024-10-19 12:43] LABS: Hemoglobin 6.7 g/dL (12.0-15.0)
[2024-10-19 12:44] LABS: Anisocytosis 1+; Schistocytes None Seen
[2024-10-19 13:24] LABS: Hematocrit 34.0 % (37.0-47.0); Hemoglobin 10.4 g/dL (12.0-15.0); Immature Granulocyte Percent A 0.4 % (0-0.5); Immature Platelet Fraction Pct 6.8 % (0.9-11.2); Lymphocytes Absolute Auto 0.52 K/mm3 (0.9-3.2); Mean Corpuscular HGB Conc 30.6 g/dl (32-36); Mean Corpuscular Hemoglobin 29.5 pg (26-34); Mean Corpuscular Volume 96.3 fl (80-100); Nucleated Red Blood Cells Absolute Auto 0.000 K/mm3 (0.0-0.012); Nucleated Red Blood Cells Perc 0.0 % (0.0-0.2); Platelet Count Result 66 k/mm3 (150-375); Red Blood Count 3.53 M/mm3 (4.2-5.4); White Blood Count 4.5 K/mm3 (4.5-10.0)
[2024-10-19 13:35] LABS: Alanine Aminotransferase 19 U/L (6-35); Albumin Level 3.0 g/dL (3.5-5.1); Alkaline Phosphatase 58 U/L (38-126); Anion Gap 4 mmol/L (4-12); Aspartate Amino Transferase 28 U/L (14-36); Bilirubin,Total 0.8 mg/dL (0.2-1.3); Blood Urea Nitrogen 8 mg/dL (7-17); Calcium 8.9 mg/dL (8.4-10.2); Carbon Dioxide 28 mmol/L (22-30); Chloride 106 mmol/L (98-107); Estimated Glomerular Filt Rate > 60; Glucose 198 mg/dL (65-110); Magnesium 1.9 mg/dL (1.6-2.3); Potassium 3.7 mmol/L (3.4-5.0); Sodium 138 mmol/L (137-145); Total Protein 5.7 g/dL (6.3-8.2)
[2024-10-19] MEDS: CENTRAL LINE FLUSH 10 ML IV PUSH ×2 (14:00→20:40)
--- NOTE | 2024-10-19 14:31 | P.PNIM_ITS ---
Progress Note: A&P Assessment and Plan (1) SBO (small bowel obstruction): Code(s): K56.609 - Unspecified intestinal obstruction, unspecified as to partial versus complete obstruction Status: Acute Assessment and Plan: Patient initially presented with nausea vomiting, concerning for coffee ground emesis Initial CT abdomen 10/10 showed partial small bowel obstruction and NG tube was placed and patient admitted for bowel rest and decompression with a consult to GI. Patient had overall improvement with placement of NG tube, emesis looked more like gastroenteritis. NG tube was then removed however after initiating food patient's nausea vomiting return with mid abdominal pain and further emesis. Repeat CT abdomen 10/11 showed redemonstration of multiple loops of prominent fluid-filled small bowel loops which extend into the pelvis for which small bowel obstruction is suspected. NG tube reinserted. Small bowel series showed SBO NG tube in place for decompression, attempted clamping trial unsuccessful. Increased bloating and left sided abdominal pain. Not passing flatus and no BM today. NPO with IV fluids, consider PICC line and TPN if surgery wishes to keep NPO Status post exploratory laparotomy with abdominal adhesiolysis 10/15/2024 Analgesics: dilaudid 1 mg IV q 3 PRN Antiemetics Monitor I&Os, vital signs, neuro status and patient is a fall risk Monitor serum electrolytes and CBC Awaiting return of bowel function Started on diet per General surgery. NG removed 10/18/2024 (2) Shortness of breath: Code(s): R06.02 - Shortness of breath Status: Acute Assessment and Plan: Patient endorsing slight shortness of breath that is exacerbated with deep breathing. No associated cough. WBC WNL. Currently on 2L NC, baseline RA. Has history of COPD. Continue to wean oxygen supplementation as tolerated to maintain SpO2 >88% No documented hypoxia on chart review Abdomen/pelvis CT 10/11 showed small bilateral pleural effusions, with adjacent compressive atelectasis and the remainder of the bilateral lung bases are clear. Chest XR with opacities at the left lung base with associated elevation of the left hemidiaphragm favoring atelectasis over pneumonia Incentive spirometer (3) Anemia: Code(s): D64.9 - Anemia, unspecified Status: Acute Assessment and Plan: Patient with history of anemia hemoglobin stable at this time Iron panel and ferritin pending B12 and folate WNL Monitor Hgb no evidence of GIB Transfuse PRBC if Hgb <7.0 (4) Hypertension: Code(s): I10 - Essential (primary) hypertension Status: Acute Assessment and Plan: Chronic, continue to monitor - holding home lisinopril 10 mg daily and metoprolol 25 mg daily as patient is NPO - continue IV push metoprolol 2.5 mg BID - BP remains well controlled, continue to monitor (5) HLD (hyperlipidemia): Code(s): E78.5 - Hyperlipidemia, unspecified Status: Acute Assessment and Plan: * continue statin when able (6) Diabetes: Code(s): E11.9 - Type 2 diabetes mellitus without complications Status: Acute Assessment and Plan: - hypoglycemia protocol - POC blood glucose q6 as patient is NPO - home medication - metformin 500 mg BID (on hold) - correct regimen ordered - low dose TIDWM (7) Thrombocytopenia: Code(s): D69.6 - Thrombocytopenia, unspecified Status: Acute Assessment and Plan: Chronic patient has been follow and monitored outpatient by primary * trend and monitor for bleeding * Transfuse PLT if <15 * recommend f/u outpatient with batchmaker Plan Hypokalemia: Replace potassium Labs this a.m. was likely erroneous with hemoglobin 6.7 immediate repeat was 10.4 as well as hypokalemia of 2.4 immediate repeat was 3.7 Subjective Date/time seen: 10/19/24 14:31 Interval history: Patient pulled NG out several times yesterday. NG has been left out since then. Passing flatus. Very small bowel movement. Abdomen is sore. Patient more awake today. Review of Systems Review of Systems: All systems reviewed & are unremarkable except as noted in HPI and below Exam Narrative: General: female in no acute respiratory distress who is nontoxic appearing HEENT: Normocephalic. Atraumatic. Extraocular movement intact. Sclera clear and anicteric. No facial asymmetry. NG tube in place. Chest: Lungs are clear to auscultation bilaterally. No wheezes or crackles. CV: Heart was regular rate and rhythm. S1-S2. No murmurs, gallops, or rubs. Abd: Abdomen was soft. Tenderness to palpation. Surgical dressing clean dry and intact, Nondistended. Hypoactive bowel sounds Ext: No clubbing, cyanosis, or edema. DP pulses bilaterally. Neuro: Patient is alert and oriented x4. Speech is clear. Objective Data Vital Signs Vital Signs: Vital Signs - 24 hr 10/18/24 16:00 10/18/24 17:00 10/18/24 20:00 Temperature 97.8 F Pulse Rate 65 85 Respiratory Rate 18 Blood Pressure 115/50 L Pulse Oximetry 95 Oxygen Delivery Room Air Fraction of Inspired Oxygen 10/18/24 20:00 10/18/24 21:00 10/18/24 21:43 Temperature 97.2 F L Pulse Rate 63 65 Respiratory Rate 18 Blood Pressure 153/65 H Pulse Oximetry 95 90 Oxygen Delivery Room Air Fraction of Inspired Oxygen 21 10/18/24 22:00 10/19/24 00:00 10/19/24 02:15 Temperature 97.8 F Pulse Rate 67 68 63 Respiratory Rate 18 Blood Pressure 123/57 L Pulse Oximetry 93 Oxygen Delivery Fraction of Inspired Oxygen 10/19/24 10:35 Temperature Pulse Rate 63 Respiratory Rate Blood Pressure Pulse Oximetry Oxygen Delivery Fraction of Inspired Oxygen Intake/Output Intake/Output: Intake & Output 10/16/24 10/17/24 10/18/24 10/19/24 23:59 23:59 23:59 23:59 Intake Total 3808.7 2844 2092.5 200 Output Total 900 750 Balance 2908.7 2094 2092.5 200 Meds/Results Medications: Active Medications Generic Name Dose Route Start Last Admin Trade Name Freq PRN Reason Stop Dose Admin Acetaminophen 1,000 mg 10/19/24 11:18 Acetaminophen 500 Mg Tablet PO Q6H PRN Mild Pain (1-3) or Fever Hydrocodone Bitart/Acetaminophen 1 tab 10/19/24 11:18 Hydrocodone/Acetaminophen (*Crx) 5-325 Mg Tablet PO Q4H PRN Pain Rated 4-6 Aspirin 81 mg 10/10/24 15:10 10/12/24 14:26 Aspirin 81 Mg Enteric Tablet PO 11/10/24 15:09 Not Given DAILY TAMIR Atorvastatin Calcium 40 mg 10/10/24 21:00 10/11/24 21:22 Atorvastatin 40 Mg Tablet PO Not Given HS TAMIR Dextrose 12.5 gm 10/10/24 15:02 Dextrose 50% 25 Gm/50 Ml Syringe IV PUSH PRN PRN Hypoglycemia Protocol Famotidine 20 mg 10/12/24 21:00 10/19/24 10:36 Famotidine 20 Mg/2 Ml Vial IV PUSH 20 mg Q12HR TAMIR Administration Furosemide 20 mg 10/10/24 14:59 Furosemide 20 Mg Tablet PO Q12H PRN edema Glucagon 1 mg 10/10/24 15:02 Glucagon For Inj 1 Mg Vial IM PRN PRN Hypoglycemia Protocol Glucose 15 gm 10/10/24 15:02 Glucose Oral Gel 15 Gm Of Glucse In 37.5 Gm Tube PO PRN PRN Hypoglycemia Protocol Hydromorphone HCl 1 mg 10/11/24 09:31 10/17/24 21:41 Hydromorphone Hcl Inj (*Crx) 2 Mg/Ml Vial IV PUSH 1 mg Q3H PRN Administration Pain Rated 7-10 Dextrose 1,000 mls @ 50 mls/hr 10/15/24 12:43 Dextrose 10% IV CONT .Q20H PRN if PN is interrupted Fat Emulsion Intravenous 250 mls @ 20.833 mls/hr 10/15/24 20:00 10/18/24 22:06 Lipids 20% IVPB 20.83 mls/hr Q24H TAMIR Administration Multivitamins 1.25 ml/ 1,002.5 mls @ 40 mls/hr 10/15/24 20:00 10/18/24 22:10 Multivitamins 1.25 ml/ Amino IV CONT 40 mls/hr Acids/Electrolytes/Dextrose .Q24H TAMIR Administration Protocol Potassium Chloride 100 mls @ 25 mls/hr 10/19/24 11:00 10/19/24 12:15 Kcl 40 Meq/Water 100 Ml IVPB 10/19/24 14:59 25 mls/hr ONCE ONE Administration Ibuprofen 800 mg in 200 mls @ 400 mls/hr 10/19/24 11:19 Caldolor 800 Mg/200 Ml IVPB Q8H PRN Pain Rated 4-6 Insulin Aspart 2 - 5 units 10/12/24 17:00 10/19/24 12:06 Insulin Aspart (*Bkc) 100 Units/Ml SUB-Q Not Given TIDWM TAIMR Protocol Insulin Glargine 14 units 10/10/24 21:00 10/12/24 01:35 Insulin Glargine (*Bkc) 100 Units/Ml SUB-Q Not Given HS TAMIR Lidocaine 1 patch 10/16/24 09:00 10/19/24 10:37 Lidocaine 5% Patch TRANSDERM 1 patch DAILY TAMIR Administration Lisinopril 10 mg 10/10/24 15:10 10/12/24 14:26 Lisinopril 10 Mg Tablet PO Not Given DAILY TAMIR Metoclopramide HCl 10 mg 10/15/24 18:00 10/19/24 10:36 Metoclopramide Hcl Inj 10 Mg/2 Ml Vial IV PUSH 10 mg Q8H TAMIR Administration Metoprolol Succinate 25 mg 10/10/24 15:10 10/12/24 14:26 Metoprolol Succinate Ext Rel 25 Mg Tabcr PO Not Given DAILY TAMIR Metoprolol Tartrate 2.5 mg 10/12/24 21:00 10/19/24 10:35 Metoprolol Tartrate Inj 5 Mg/5 Ml Vial IV PUSH 2.5 mg Q12HR TAMIR Administration Metoprolol Tartrate 5 mg 10/15/24 18:58 Metoprolol Tartrate Inj 5 Mg/5 Ml Vial IV PUSH Q4H PRN Hypertension Miscellaneous Information 1 each 10/19/24 00:01 Please Renew Clinimix. Per [employer] Procedure, It Will Discontinue If Not Renewed XX 11/18/24 00:00 CLARIFY TAMIR Ondansetron HCl 4 mg 10/10/24 03:52 10/17/24 23:01 Ondansetron Inj 4 Mg/2 Ml Vial IV PUSH 4 mg Q4H PRN Administration Nausea Sertraline HCl 50 mg 10/10/24 15:10 10/12/24 14:27 Sertraline Hcl 50 Mg Tablet PO Not Given QAM TAMIR Sodium Chloride 10 ml 10/15/24 22:00 10/19/24 06:01 Central Line Flush IV PUSH Not Given Q8HR TAMIR Sodium Chloride 10 ml 10/15/24 14:41 Central Line Flush IV PUSH PRN PRN with TPN bag changes Sodium Chloride 20 ml 10/15/24 14:41 Central Line Flush IV PUSH PRN PRN after blood draws Radiology Results: ITS Impressions Abdomen/Pelvis CT 10/11/24 09:55 IMPRESSION: Interval removal of the nasogastric tube when compared with previous examination. Redemonstration of multiple loops of prominent fluid-filled small bowel loops which extend into the pelvis for which small bowel obstruction is suspected. Rectosigmoid diverticulosis and mural thickening with limited evaluation for surrounding inflammatory change secondary to the lack of intravenous contrast and the lack of intrapelvic fat. Retroperitoneal lymphadenopathy is suspected, although detection is limited without intravenous contrast. Perihepatic and perisplenic fluid is now identified, an interval change from previous days examination. Given the culmination of findings (as detailed above) premedication for patient's contrast allergy is recommended with repeat evaluation with intravenous contrast. Upper GI and Small Bowel X-Ray 10/12/24 16:57 IMPRESSION: 1. Normal small bowel transit time to the cecum of 2 hours with no frankly di lated loops of small bowel to suggest obstruction. 2. Large amount of residual contrast within the stomach on the 4 hour delayed images suggestive of gastroparesis. 3. Unchanged 1.6 cm left renal stone. Abdomen X-Ray 10/18/24 06:18 Impression: NG tube in place, side port just below the diaphragm. Chest X-Ray 10/18/24 10:27 Impression: Support tubes in place, as above. Minimal right pleural effusion and probable minimal right basilar atelectatic change. Labs Labs: Laboratory Results - last 24 hr 10/18/24 10/19/24 10/19/24 16:25 00:10 06:54 WBC RBC Hgb Hct MCV MCH MCHC RDW Plt Count MPV Immature Gran % (Auto) Neut % (Auto) Lymph % (Auto) Zavala % (Auto) Eos % (Auto) Baso % (Auto) Lymph # (Auto) Zavala # (Auto) Eos # (Auto) Baso # (Auto) Abs Immat Gran (auto) Absolute Neuts (auto) Absolute Nucleated RBC Band Neutrophils % Nucleated RBC % Platelet Estimate Large Platelets % Immature Plt Fraction Anisocytosis Schistocytes PT INR APTT Sodium Potassium Chloride Carbon Dioxide Anion Gap BUN Creatinine Estim Creat Clear Calc Estimated GFR Glucose POC Capillary Glucose 130 H 152 H 151 H Calcium Phosphorus Magnesium Transferrin Total Bilirubin AST ALT Alkaline Phosphatase Total Protein Albumin 10/19/24 10/19/24 10/19/24 08:32 11:38 11:47 WBC 2.7 L RBC 2.26 L Hgb 6.7 L* D Hct 21.3 L MCV 94.2 MCH 29.6 MCHC 31.5 L RDW 17.1 H Plt Count 49 L MPV 10.7 H Immature Gran % (Auto) 0.4 Neut % (Auto) 62.8 Lymph % (Auto) 13.0 L Zavala % (Auto) 11.9 H Eos % (Auto) 11.9 H Baso % (Auto) 0.0 L Lymph # (Auto) 0.35 L Zavala # (Auto) 0.3 Eos # (Auto) 0.3 Baso # (Auto) 0.0 Abs Immat Gran (auto) 0.01 Absolute Neuts (auto) 1.7 Absolute Nucleated RBC 0.000 Band Neutrophils % Not Reportable Nucleated RBC % 0.0 Platelet Estimate Decreased Large Platelets Present % Immature Plt Fraction 4.4 Anisocytosis 1+ Schistocytes None seen PT 16.8 H INR 1.4 APTT 29.9 Sodium 138 Potassium 2.4 L* Chloride 106 Carbon Dioxide 19 L Anion Gap 13 H BUN 5 L D Creatinine 0.32 L Estim Creat Clear Calc Not Reportable Estimated GFR > 60 Glucose 138 H POC Capillary Glucose 169 H 168 H Calcium 6.0 L Phosphorus 17.4 H Magnesium 1.1 L Transferrin 82 L Total Bilirubin < 0.1 L AST 16 ALT 9 Alkaline Phosphatase 31 L Total Protein 3.5 L Albumin 1.6 L 10/19/24 10/19/24 13:11 13:12 WBC 4.5 RBC 3.53 L Hgb 10.4 L D Hct 34.0 L MCV 96.3 MCH 29.5 MCHC 30.6 L RDW 17.2 H Plt Count 66 L MPV 11.1 H Immature Gran % (Auto) 0.4 Neut % (Auto) 67.0 Lymph % (Auto) 11.6 L Zavala % (Auto) 9.6 H Eos % (Auto) 11.0 H Baso % (Auto) 0.4 Lymph # (Auto) 0.52 L Zavala # (Auto) 0.4 Eos # (Auto) 0.5 H Baso # (Auto) 0.0 Abs Immat Gran (auto) 0.02 Absolute Neuts (auto) 3.0 Absolute Nucleated RBC 0.000 Band Neutrophils % Nucleated RBC % 0.0 Platelet Estimate Large Platelets % Immature Plt Fraction 6.8 Anisocytosis Schistocytes PT INR APTT Sodium 138 Potassium 3.7 Chloride 106 Carbon Dioxide 28 Anion Gap 4 BUN 8 Creatinine 0.47 L Estim Creat Clear Calc Not Reportable Estimated GFR > 60 Glucose 198 H POC Capillary Glucose Calcium 8.9 Phosphorus Magnesium 1.9 Cancelled Transferrin Total Bilirubin 0.8 AST 28 ALT 19 Alkaline Phosphatase 58 Total Protein 5.7 L Albumin 3.0 L
[2024-10-19] MEDS: INSULIN ASPART (*BKC) 100 UNITS/ML SUB-Q (17:24)
[2024-10-19] MEDS: ONDANSETRON INJ 4 MG/2 ML VIAL IV PUSH (20:14)
[2024-10-19] MEDS: FAT EMULSIONS IV 20% 250 ML 20.83 ML IVPB (20:27)
[2024-10-19] MEDS: AMINO ACIDS 5%/D15W/E-LYTES/CA 1,000 ML with MULTIVITAMINS-12 INJ VIAL 1 1.25 ML, MULTI... 40 ML IV CONT (20:33)
[2024-10-20] VITALS (10 sets, daily range): BP systolic 117–132; BP diastolic 41–54; PULSE 67–86; RESP 16–20; TEMP 36.2–37.2; O2SAT 94–97
[2024-10-20] MEDS: HYDROmorphone HCL INJ (*CRX) 2 MG/ML VIAL 1 MG IV PUSH (00:45)
[2024-10-20] MEDS: ONDANSETRON INJ 4 MG/2 ML VIAL IV PUSH ×2 (00:46→21:16)
[2024-10-20] MEDS: METOCLOPRAMIDE HCL INJ 10 MG/2 ML VIAL IV PUSH (01:35)
[2024-10-20 06:10] LABS: Hematocrit 27.9 % (37.0-47.0); Hemoglobin 8.9 g/dL (12.0-15.0); Immature Platelet Fraction Pct 7.3 % (0.9-11.2); Mean Corpuscular HGB Conc 31.9 g/dl (32-36); Mean Corpuscular Hemoglobin 30.1 pg (26-34); Mean Corpuscular Volume 94.3 fl (80-100); Platelet Count Result 66 k/mm3 (150-375); Red Blood Count 2.96 M/mm3 (4.2-5.4); White Blood Count 4.1 K/mm3 (4.5-10.0)
[2024-10-20 06:42] LABS: Alanine Aminotransferase 15 U/L (6-35); Albumin Level 2.5 g/dL (3.5-5.1); Alkaline Phosphatase 43 U/L (38-126); Anion Gap 1 mmol/L (4-12); Aspartate Amino Transferase 19 U/L (14-36); Bilirubin,Total 0.4 mg/dL (0.2-1.3); Blood Urea Nitrogen 9 mg/dL (7-17); Calcium 8.5 mg/dL (8.4-10.2); Carbon Dioxide 30 mmol/L (22-30); Chloride 105 mmol/L (98-107); Estimated Glomerular Filt Rate > 60; Glucose 204 mg/dL (65-110); Magnesium 1.8 mg/dL (1.6-2.3); Potassium 3.6 mmol/L (3.4-5.0); Sodium 136 mmol/L (137-145); Total Protein 4.9 g/dL (6.3-8.2)
[2024-10-20] MEDS: FAMOTIDINE 20 MG/2 ML VIAL IV PUSH ×2 (08:57→21:12)
[2024-10-20] MEDS: METOPROLOL TARTRATE INJ 5 MG/5 ML VIAL 2.5 MG IV PUSH ×2 (08:57→21:12)
[2024-10-20] MEDS: LIDOCAINE 5% PATCH 1 PATCH TRANSDERM (09:04)
--- NOTE | 2024-10-20 09:32 | PCNFU ---
Nutrition Follow-Up Complete: Inadequate energy intake related to NPO status as evidenced by current diet orders Meet estimated nutrition needs - Progressing with PO intake, Meeting needs with TPN. Goal: Pt current nutrition is Clear liquids. TPN: Clinmix E 5/15 @ 40 ml/h. Nutrition recommendation: Continue to advance PO diet as medically able. When pt is tolerating a solid diet with intakes >50%, can discontinue TPN Last recorded weight is 72 kg. +10 kg 1 week Bowel Motility: +1 BM 10/19 Labs Reviewed: Hgb 8.9,, Hct 27.9, Alb 2.5, Na 136, Cre 0.52, Glu 204 Meds Noted: Lantus, Pepcid, Reglan, zofran Skin: No skin issues Additional Notes: NG is out. Pt tolerating clear liquids with bowel movements. TPN Clinmix E 5/15 with lipids @ 40 ml/h provides 1182 kcal, 48 g protein, 1210 ml total volume. Meeting needs @ 16 kcal/kg, 0.7 g protein/kg. Not adequate for needs. Can discontinue TPn when pt is tolerating solids with >50% intakes Monitor for diet orders, intake, tolerance, wt, labs. Follow up in 3 days.
--- NOTE | 2024-10-20 10:21 | PM.PNGS ---
Progress Note: A&P Assessment and Plan (1) SBO (small bowel obstruction): Code(s): K56.609 - Unspecified intestinal obstruction, unspecified as to partial versus complete obstruction Status: Acute Assessment and Plan: Resolved following exploratory laparotomy with adhesiolysis. She had an episode of nausea and vomiting last night. Bowels are still moving. This is likely related to her gastroparesis. Continue the Reglan. Encouraged small, frequent meals. She is feeling better this morning. Will try advancing to full liquids and stop TPN Increase activity, up to chair today, PT/OT following. Encouraged IS use. Plan I have discussed the patient's case and plan of care with Dr. Taylor. Subjective Subjective Date/Time Seen: 10/20/24 10:21 Patient reports: no new complaints, flatus, bowel movement, nausea, vomiting and afebrile Interval history: Patient feeling well today. She reports having a rough night. She tolerated clear liquids yesterday, but through the night had nausea and vomiting. Previous small-bowel follow-through suggested gastroparesis. She denies having that diagnosis in the past, but her daughter reports she has been diagnosed with this. She does claim to have intermittent episodes of nausea and vomiting at home chronically. Labs drawn late yesterday, Hgb 6.7 that appears inaccurate as repeat labs showed hgb 10.4. Per nursing, no blood in stool, no bloody emesis last night, and no blood in urine. Exam Const: General: comfortable and no acute distress Orientation/consciousness: patient oriented x3 GI: Inspection: non-distended GI Palp: Yes Soft to palpation, Yes Tenderness to palpation present (GI) (mild incisional tenderness), No Guarding due to palpation present (GI) and No Rebound tenderness present Auscultation: normal bowel sounds Other: Midline incisions with keenan intact, very mild erythema localized near incision at umbilicus, no drainage. Extrem: General: no calf tenderness and no edema Objective Data Vital Signs Vital Signs: Vital Signs - 24 hr 10/19/24 10:30 10/19/24 10:35 10/19/24 12:00 Temperature Pulse Rate 63 67 Respiratory Rate Blood Pressure Pulse Oximetry 96 Oxygen Delivery Room Air 10/19/24 16:00 10/19/24 18:00 10/19/24 20:00 Temperature 97.8 F Pulse Rate 64 74 Respiratory Rate 18 Blood Pressure 132/52 L Pulse Oximetry 95 Oxygen Delivery Room Air 10/19/24 20:19 10/19/24 22:00 10/20/24 02:00 Temperature Pulse Rate 69 70 73 Respiratory Rate Blood Pressure Pulse Oximetry Oxygen Delivery 10/20/24 05:00 10/20/24 08:57 Temperature 97.2 F L Pulse Rate 68 80 Respiratory Rate 20 Blood Pressure 132/53 L Pulse Oximetry 97 Oxygen Delivery Intake/Output Intake/Output: Intake & Output 10/17/24 10/18/24 10/19/24 10/20/24 23:59 23:59 23:59 23:59 Intake Total 2844 2092.5 1825.3 450 Output Total 750 Balance 2094 2092.5 1825.3 450 Meds/Results Medications: Active Medications Generic Name Dose Route Start Last Admin Trade Name Freq PRN Reason Stop Dose Admin Acetaminophen 1,000 mg 10/19/24 11:18 Acetaminophen 500 Mg Tablet PO Q6H PRN Mild Pain (1-3) or Fever Hydrocodone Bitart/Acetaminophen 1 tab 10/19/24 11:18 Hydrocodone/Acetaminophen (*Crx) 5-325 Mg Tablet PO Q4H PRN Pain Rated 4-6 Aspirin 81 mg 10/10/24 15:10 10/12/24 14:26 Aspirin 81 Mg Enteric Tablet PO 11/10/24 15:09 Not Given DAILY TAMIR Atorvastatin Calcium 40 mg 10/10/24 21:00 10/11/24 21:22 Atorvastatin 40 Mg Tablet PO Not Given HS TAMIR Dextrose 12.5 gm 10/10/24 15:02 Dextrose 50% 25 Gm/50 Ml Syringe IV PUSH PRN PRN Hypoglycemia Protocol Famotidine 20 mg 10/12/24 21:00 10/20/24 08:57 Famotidine 20 Mg/2 Ml Vial IV PUSH 20 mg Q12HR TAMIR Administration Furosemide 20 mg 10/10/24 14:59 Furosemide 20 Mg Tablet PO Q12H PRN edema Glucagon 1 mg 10/10/24 15:02 Glucagon For Inj 1 Mg Vial IM PRN PRN Hypoglycemia Protocol Glucose 15 gm 10/10/24 15:02 Glucose Oral Gel 15 Gm Of Glucse In 37.5 Gm Tube PO PRN PRN Hypoglycemia Protocol Hydromorphone HCl 1 mg 10/11/24 09:31 10/20/24 00:45 Hydromorphone Hcl Inj (*Crx) 2 Mg/Ml Vial IV PUSH 1 mg Q3H PRN Administration Pain Rated 7-10 Dextrose 1,000 mls @ 50 mls/hr 10/15/24 12:43 Dextrose 10% IV CONT .Q20H PRN if PN is interrupted Fat Emulsion Intravenous 250 mls @ 20.833 mls/hr 10/15/24 20:00 10/20/24 09:06 Lipids 20% IVPB Infused Q24H TAIMR Infusion Multivitamins 1.25 ml/ 1,002.5 mls @ 40 mls/hr 10/15/24 20:00 10/19/24 20:33 Multivitamins 1.25 ml/ Amino IV CONT 40 mls/hr Acids/Electrolytes/Dextrose .Q24H TAMIR Administration Protocol Ibuprofen 800 mg in 200 mls @ 400 mls/hr 10/19/24 11:19 Caldolor 800 Mg/200 Ml IVPB Q8H PRN Pain Rated 4-6 Insulin Aspart 2 - 5 units 10/12/24 17:00 10/20/24 08:56 Insulin Aspart (*Bkc) 100 Units/Ml SUB-Q Not Given TIDWM [facility] Protocol Insulin Glargine 14 units 10/10/24 21:00 10/12/24 01:35 Insulin Glargine (*Bkc) 100 Units/Ml SUB-Q Not Given HS [facility] Lidocaine 1 patch 10/16/24 09:00 10/20/24 09:04 Lidocaine 5% Patch TRANSDERM 1 patch DAILY TAMIR Administration Lisinopril 10 mg 10/10/24 15:10 10/12/24 14:26 Lisinopril 10 Mg Tablet PO Not Given DAILY TAMIR Metoclopramide HCl 10 mg 10/20/24 11:30 Metoclopramide Hcl 10 Mg Tablet PO TIDAC TAMIR Metoprolol Succinate 25 mg 10/10/24 15:10 10/12/24 14:26 Metoprolol Succinate Ext Rel 25 Mg Tabcr PO Not Given DAILY TAMIR Metoprolol Tartrate 2.5 mg 10/12/24 21:00 10/20/24 08:57 Metoprolol Tartrate Inj 5 Mg/5 Ml Vial IV PUSH 2.5 mg Q12HR TAMIR Administration Metoprolol Tartrate 5 mg 10/15/24 18:58 Metoprolol Tartrate Inj 5 Mg/5 Ml Vial IV PUSH Q4H PRN Hypertension Ondansetron HCl 4 mg 10/10/24 03:52 10/20/24 00:46 Ondansetron Inj 4 Mg/2 Ml Vial IV PUSH 4 mg Q4H PRN Administration Nausea Sertraline HCl 50 mg 10/10/24 15:10 10/12/24 14:27 Sertraline Hcl 50 Mg Tablet PO Not Given QAM TAMIR Sodium Chloride 10 ml 10/15/24 22:00 10/20/24 05:05 Central Line Flush IV PUSH Not Given Q8HR TAMIR Sodium Chloride 10 ml 10/15/24 14:41 Central Line Flush IV PUSH PRN PRN with TPN bag changes Sodium Chloride 20 ml 10/15/24 14:41 Central Line Flush IV PUSH PRN PRN after blood draws Radiology Results: ITS Impressions Abdomen/Pelvis CT 10/11/24 09:55 IMPRESSION: Interval removal of the nasogastric tube when compared with previous examination. Redemonstration of multiple loops of prominent fluid-filled small bowel loops which extend into the pelvis for which small bowel obstruction is suspected. Rectosigmoid diverticulosis and mural thickening with limited evaluation for surrounding inflammatory change secondary to the lack of intravenous contrast and the lack of intrapelvic fat. Retroperitoneal lymphadenopathy is suspected, although detection is limited without intravenous contrast. Perihepatic and perisplenic fluid is now identified, an interval change from previous days examination. Given the culmination of findings (as detailed above) premedication for patient's contrast allergy is recommended with repeat evaluation with intravenous contrast. Upper GI and Small Bowel X-Ray 10/12/24 16:57 IMPRESSION: 1. Normal small bowel transit time to the cecum of 2 hours with no frankly dilated loops of small bowel to suggest obstruction. 2. Large amount of residual contrast within the stomach on the 4 hour delayed images suggestive of gastroparesis. 3. Unchanged 1.6 cm left renal stone. Abdomen X-Ray 10/18/24 06:18 Impression: NG tube in place, side port just below the diaphragm. Chest X-Ray 10/18/24 10:27 Impression: Support tubes in place, as above. Minimal right pleural effusion and probable minimal right basilar atelectatic change. Labs Labs: Laboratory Results - last 24 hr 10/19/24 10/19/24 10/19/24 11:38 11:47 13:11 WBC 2.7 L 4.5 RBC 2.26 L 3.53 L Hgb 6.7 L* D 10.4 L D Hct 21.3 L 34.0 L MCV 94.2 96.3 MCH 29.6 29.5 MCHC 31.5 L 30.6 L RDW 17.1 H 17.2 H Plt Count 49 L 66 L MPV 10.7 H 11.1 H Immature Gran % (Auto) 0.4 0.4 Neut % (Auto) 62.8 67.0 Lymph % (Auto) 13.0 L 11.6 L [place] % (Auto) 11.9 H 9.6 H Eos % (Auto) 11.9 H 11.0 H Baso % (Auto) 0.0 L 0.4 Lymph # (Auto) 0.35 L 0.52 L [place] # (Auto) 0.3 0.4 Eos # (Auto) 0.3 0.5 H Baso # (Auto) 0.0 0.0 Abs Immat Gran (auto) 0.01 0.02 Absolute Neuts (auto) 1.7 3.0 Absolute Nucleated RBC 0.000 0.000 Band Neutrophils % Not Reportable Nucleated RBC % 0.0 0.0 Platelet Estimate Decreased Large Platelets Present % Immature Plt Fraction 4.4 6.8 Anisocytosis 1+ Schistocytes None seen PT 16.8 H INR 1.4 APTT 29.9 Sodium 138 138 Potassium 2.4 L* 3.7 Chloride 106 106 Carbon Dioxide 19 L 28 Anion Gap 13 H 4 BUN 5 L D 8 Creatinine 0.32 L 0.47 L Estim Creat Clear Calc Not Reportable Not Reportable Estimated GFR > 60 > 60 Glucose 138 H 198 H POC Capillary Glucose 168 H Calcium 6.0 L 8.9 Phosphorus 17.4 H Magnesium 1.1 L 1.9 Transferrin 82 L Total Bilirubin < 0.1 L 0.8 AST 16 28 ALT 9 19 Alkaline Phosphatase 31 L 58 Total Protein 3.5 L 5.7 L Albumin 1.6 L 3.0 L 10/19/24 10/19/24 10/19/24 13:12 16:34 20:18 WBC RBC Hgb Hct MCV MCH MCHC RDW Plt Count MPV Immature Gran % (Auto) Neut % (Auto) Lymph % (Auto) [place] % (Auto) Eos % (Auto) Baso % (Auto) Lymph # (Auto) [place] # (Auto) Eos # (Auto) Baso # (Auto) Abs Immat Gran (auto) Absolute Neuts (auto) Absolute Nucleated RBC Band Neutrophils % Nucleated RBC % Platelet Estimate Large Platelets % Immature Plt Fraction Anisocytosis Schistocytes PT INR APTT Sodium Potassium Chloride Carbon Dioxide Anion Gap BUN Creatinine Estim Creat Clear Calc Estimated GFR Glucose POC Capillary Glucose 221 H 187 H Calcium Phosphorus Magnesium Cancelled Transferrin Total Bilirubin AST ALT Alkaline Phosphatase Total Protein Albumin 10/20/24 10/20/24 10/20/24 05:40 06:20 08:05 WBC 4.1 L RBC 2.96 L Hgb 8.9 L Hct 27.9 L MCV 94.3 MCH 30.1 MCHC 31.9 L RDW 17.2 H Plt Count 66 L MPV 10.8 H Immature Gran % (Auto) Neut % (Auto) Lymph % (Auto) [place] % (Auto) Eos % (Auto) Baso % (Auto) Lymph # (Auto) [place] # (Auto) Eos # (Auto) Baso # (Auto) Abs Immat Gran (auto) Absolute Neuts (auto) Absolute Nucleated RBC Band Neutrophils % Nucleated RBC % Platelet Estimate Large Platelets % Immature Plt Fraction 7.3 Anisocytosis Schistocytes PT INR APTT Sodium 136 L Potassium 3.6 Chloride 105 Carbon Dioxide 30 Anion Gap 1 L BUN 9 Creatinine 0.52 L Estim Creat Clear Calc Not Reportable Estimated GFR > 60 Glucose 204 H POC Capillary Glucose 208 H 200 H Calcium 8.5 Phosphorus 3.0 Magnesium 1.8 Transferrin Total Bilirubin 0.4 AST 19 ALT 15 Alkaline Phosphatase 43 Total Protein 4.9 L Albumin 2.5 L
[2024-10-20] MEDS: INSULIN ASPART (*BKC) 100 UNITS/ML SUB-Q (12:07)
[2024-10-20] MEDS: CENTRAL LINE FLUSH 10 ML IV PUSH ×2 (12:08→22:30)
[2024-10-20] MEDS: METOCLOPRAMIDE HCL 10 MG TABLET PO ×2 (12:12→16:24)
--- NOTE | 2024-10-20 12:44 | P.PNIM_ITS ---
Progress Note: A&P Assessment and Plan (1) SBO (small bowel obstruction): Code(s): K56.609 - Unspecified intestinal obstruction, unspecified as to partial versus complete obstruction Status: Acute Assessment and Plan: Patient initially presented with nausea vomiting, concerning for coffee ground emesis Initial CT abdomen 10/10 showed partial small bowel obstruction and NG tube was placed and patient admitted for bowel rest and decompression with a consult to GI. Patient had overall improvement with placement of NG tube, emesis looked more like gastroenteritis. NG tube was then removed however after initiating food patient's nausea vomiting return with mid abdominal pain and further emesis. Repeat CT abdomen 10/11 showed redemonstration of multiple loops of prominent fluid-filled small bowel loops which extend into the pelvis for which small bowel obstruction is suspected. NG tube reinserted. Small bowel series showed SBO NG tube in place for decompression, attempted clamping trial unsuccessful. Increased bloating and left sided abdominal pain. Not passing flatus and no BM today. NPO with IV fluids, consider PICC line and TPN if surgery wishes to keep NPO Status post exploratory laparotomy with abdominal adhesiolysis 10/15/2024 Analgesics: dilaudid 1 mg IV q 3 PRN Antiemetics Monitor I&Os, vital signs, neuro status and patient is a fall risk Monitor serum electrolytes and CBC Bowels moving now Started on diet per General surgery. NG removed 10/18/2024 (2) Shortness of breath: Code(s): R06.02 - Shortness of breath Status: Acute Assessment and Plan: Patient endorsing slight shortness of breath that is exacerbated with deep b reathing. No associated cough. WBC WNL. Currently on 2L NC, baseline RA. Has history of COPD. Continue to wean oxygen supplementation as tolerated to maintain SpO2 >88% No documented hypoxia on chart review Abdomen/pelvis CT 10/11 showed small bilateral pleural effusions, with adjacent compressive atelectasis and the remainder of the bilateral lung bases are clear. Chest XR with opacities at the left lung base with associated elevation of the left hemidiaphragm favoring atelectasis over pneumonia Incentive spirometer (3) Anemia: Code(s): D64.9 - Anemia, unspecified Status: Acute Assessment and Plan: Patient with history of anemia hemoglobin stable at this time Iron panel and ferritin pending B12 and folate WNL Monitor Hgb no evidence of GIB Transfuse PRBC if Hgb <7.0 (4) Hypertension: Code(s): I10 - Essential (primary) hypertension Status: Acute Assessment and Plan: Chronic, continue to monitor - holding home lisinopril 10 mg daily and metoprolol 25 mg daily as patient is NPO - continue IV push metoprolol 2.5 mg BID - BP remains well controlled, continue to monitor (5) HLD (hyperlipidemia): Code(s): E78.5 - Hyperlipidemia, unspecified Status: Acute Assessment and Plan: * continue statin when able (6) Diabetes: Code(s): E11.9 - Type 2 diabetes mellitus without complications Status: Acute Assessment and Plan: - hypoglycemia protocol - POC blood glucose q6 as patient is NPO - home medication - metformin 500 mg BID (on hold) - correct regimen ordered - low dose TIDWM (7) Thrombocytopenia: Code(s): D69.6 - Thrombocytopenia, unspecified Status: Acute Assessment and Plan: Chronic patient has been follow and monitored outpatient by primary * trend and monitor for bleeding * Transfuse PLT if <15 * recommend f/u outpatient with 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 Reports abdominal soreness. Feels better this morning. With no nausea vomiting. Review of Systems Review of Systems: All systems reviewed & are unremarkable except as noted in HPI and below Exam Narrative: General: female in no acute respiratory distress who is nontoxic appearing HEENT: Normocephalic. Atraumatic. Extraocular movement intact. Sclera clear and anicteric. No facial asymmetry. NG tube in place. Chest: Lungs are clear to auscultation bilaterally. No wheezes or crackles. CV: Heart was regular rate and rhythm. S1-S2. No murmurs, gallops, or rubs. Abd: Abdomen was soft. Tenderness to palpation. Surgical dressing clean dry and intact, Nondistended. Hypoactive bowel sounds Ext: No clubbing, cyanosis, or edema. DP pulses bilaterally. Neuro: Patient is alert and oriented x4. Speech is clear. Objective Data Vital Signs Vital Signs: Vital Signs - 24 hr 10/19/24 16:00 10/19/24 18:00 10/19/24 20:00 Temperature 97.8 F Pulse Rate 64 74 Respiratory Rate 18 Blood Pressure 132/52 L Pulse Oximetry 95 Oxygen Delivery Room Air 10/19/24 20:19 10/19/24 22:00 10/20/24 02:00 Temperature Pulse Rate 69 70 73 Respiratory Rate Blood Pressure Pulse Oximetry Oxygen Delivery 10/20/24 05:00 10/20/24 08:57 Temperature 97.2 F L Pulse Rate 68 80 Respiratory Rate 20 Blood Pressure 132/53 L Pulse Oximetry 97 Oxygen Delivery Intake/Output Intake/Output: Intake & Output 10/17/24 10/18/24 10/19/24 10/20/24 23:59 23:59 23:59 23:59 Intake Total 2844 2092.5 1825.3 450 Output Total 750 Balance 2094 2092.5 1825.3 450 Meds/Results Medications: Active Medications Generic Name Dose Route Start Last Admin Trade Name Freq PRN Reason Stop Dose Admin Acetaminophen 1,000 mg 10/19/24 11:18 Acetaminophen 500 Mg Tablet PO Q6H PRN Mild Pain (1-3) or Fever Hydrocodone Bitart/Acetaminophen 1 tab 10/19/24 11:18 Hydrocodone/Acetaminophen (*Crx) 5-325 Mg Tablet PO Q4H PRN Pain Rated 4-6 Aspirin 81 mg 10/10/24 15:10 10/12/24 14:26 Aspirin 81 Mg Enteric Tablet PO 11/10/24 15:09 Not Given DAILY TAMIR Atorvastatin Calcium 40 mg 10/10/24 21:00 10/11/24 21:22 Atorvastatin 40 Mg Tablet PO Not Given HS TAMIR Dextrose 12.5 gm 10/10/24 15:02 Dextrose 50% 25 Gm/50 Ml Syringe IV PUSH PRN PRN Hypoglycemia Protocol Famotidine 20 mg 10/12/24 21:00 10/20/24 08:57 Famotidine 20 Mg/2 Ml Vial IV PUSH 20 mg Q12HR TAMIR Administration Furosemide 20 mg 10/10/24 14:59 Furosemide 20 Mg Tablet PO Q12H PRN edema Glucagon 1 mg 10/10/24 15:02 Glucagon For Inj 1 Mg Vial IM PRN PRN Hypoglycemia Protocol Glucose 15 gm 10/10/24 15:02 Glucose Oral Gel 15 Gm Of Glucse In 37.5 Gm Tube PO PRN PRN Hypoglycemia Protocol Hydromorphone HCl 1 mg 10/11/24 09:31 10/20/24 00:45 Hydromorphone Hcl Inj (*Crx) 2 Mg/Ml Vial IV PUSH 1 mg Q3H PRN Administration Pain Rated 7-10 Dextrose 1,000 mls @ 50 mls/hr 10/15/24 12:43 Dextrose 10% IV CONT .Q20H PRN if PN is interrupted Ibuprofen 800 mg in 200 mls @ 400 mls/hr 10/19/24 11:19 Caldolor 800 Mg/200 Ml IVPB Q8H PRN Pain Rated 4-6 Insulin Aspart 2 - 5 units 10/12/24 17:00 10/20/24 12:07 Insulin Aspart (*Bkc) 100 Units/Ml SUB-Q 2 units TIDWM TAMIR Administration Protocol Insulin Glargine 14 units 10/10/24 21:00 10/12/24 01:35 Insulin Glargine (*Bkc) 100 Units/Ml SUB-Q Not Given HS TAMIR Lidocaine 1 patch 10/16/24 09:00 10/20/24 09:04 Lidocaine 5% Patch TRANSDERM 1 patch DAILY TAMIR Administration Lisinopril 10 mg 10/10/24 15:10 10/12/24 14:26 Lisinopril 10 Mg Tablet PO Not Given DAILY TAMIR Metoclopramide HCl 10 mg 10/20/24 11:30 10/20/24 12:12 Metoclopramide Hcl 10 Mg Tablet PO 10 mg TIDAC TAMIR Administration Metoprolol Succinate 25 mg 10/10/24 15:10 10/12/24 14:26 Metoprolol Succinate Ext Rel 25 Mg Tabcr PO Not Given DAILY TAMIR Metoprolol Tartrate 2.5 mg 10/12/24 21:00 10/20/24 08:57 Metoprolol Tartrate Inj 5 Mg/5 Ml Vial IV PUSH 2.5 mg Q12HR TAMIR Administration Metoprolol Tartrate 5 mg 10/15/24 18:58 Metoprolol Tartrate Inj 5 Mg/5 Ml Vial IV PUSH Q4H PRN Hypertension Ondansetron HCl 4 mg 10/10/24 03:52 10/20/24 00:46 Ondansetron Inj 4 Mg/2 Ml Vial IV PUSH 4 mg Q4H PRN Administration Nausea Sertraline HCl 50 mg 10/10/24 15:10 10/12/24 14:27 Sertraline Hcl 50 Mg Tablet PO Not Given QAM TAMIR Sodium Chloride 10 ml 10/15/24 22:00 10/20/24 12:08 Central Line Flush IV PUSH 10 ml Q8HR TAIMR Administration Sodium Chloride 10 ml 10/15/24 14:41 Central Line Flush IV PUSH PRN PRN with TPN bag changes Sodium Chloride 20 ml 10/15/24 14:41 Central Line Flush IV PUSH PRN PRN after blood draws Radiology Results: ITS Impressions Abdomen/Pelvis CT 10/11/24 09:55 IMPRESSION: Interval removal of the nasogastric tube when compared with previous examination. Redemonstration of multiple loops of prominent fluid-filled small bowel loops which extend into the pelvis for which small bowel obstruction is suspected. Rectosigmoid diverticulosis and mural thickening with limited evaluation for surrounding inflammatory change secondary to the lack of intravenous contrast and the lack of intrapelvic fat. Retroperitoneal lymphadenopathy is suspected, although detection is limited without intravenous contrast. Perihepatic and perisplenic fluid is now identified, an interval change from previous days examination. Given the culmination of findings (as detailed above) premedication for patient's contrast allergy is recommended with repeat evaluation with intravenous contrast. Upper GI and Small Bowel X-Ray 10/12/24 16:57 IMPRESSION: 1. Normal small bowel transit time to the cecum of 2 hours with no frankly dilated loops of small bowel to suggest obstruction. 2. Large amount of residual contrast within the stomach on the 4 hour delayed images suggestive of gastroparesis. 3. Unchanged 1.6 cm left renal stone. Abdomen X-Ray 10/18/24 06:18 Impression: NG tube in place, side port just below the diaphragm. Chest X-Ray 10/18/24 10:27 Impression: Support tubes in place, as above. Minimal right pleural effusion and probable minimal right basilar atelectatic change. Labs Labs: Laboratory Results - last 24 hr 10/19/24 10/19/24 10/19/24 11:47 13:11 13:12 WBC 2.7 L 4.5 RBC 2.26 L 3.53 L Hgb 6.7 L* D 10.4 L D Hct 21.3 L 34.0 L MCV 94.2 96.3 MCH 29.6 29.5 MCHC 31.5 L 30.6 L RDW 17.1 H 17.2 H Plt Count 49 L 66 L MPV 10.7 H 11.1 H Immature Gran % (Auto) 0.4 0.4 Neut % (Auto) 62.8 67.0 Lymph % (Auto) 13.0 L 11.6 L [place] % (Auto) 11.9 H 9.6 H Eos % (Auto) 11.9 H 11.0 H Baso % (Auto) 0.0 L 0.4 Lymph # (Auto) 0.35 L 0.52 L [place] # (Auto) 0.3 0.4 Eos # (Auto) 0.3 0.5 H Baso # (Auto) 0.0 0.0 Abs Immat Gran (auto) 0.01 0.02 Absolute Neuts (auto) 1.7 3.0 Absolute Nucleated RBC 0.000 0.000 Band Neutrophils % Not Reportable Nucleated RBC % 0.0 0.0 Platelet Estimate Decreased Large Platelets Present % Immature Plt Fraction 4.4 6.8 Anisocytosis 1+ Schistocytes None seen Sodium 138 138 Potassium 2.4 L* 3.7 Chloride 106 106 Carbon Dioxide 19 L 28 Anion Gap 13 H 4 BUN 5 L D 8 Creatinine 0.32 L 0.47 L Estim Creat Clear Calc Not Reportable Estimated GFR > 60 > 60 Glucose 138 H 198 H POC Capillary Glucose Calcium 6.0 L 8.9 Phosphorus 17.4 H Magnesium 1.1 L 1.9 Cancelled Transferrin 82 L Total Bilirubin < 0.1 L 0.8 AST 16 28 ALT 9 19 Alkaline Phosphatase 31 L 58 Total Protein 3.5 L 5.7 L Albumin 1.6 L 3.0 L 10/19/24 10/19/24 10/20/24 16:34 20:18 05:40 WBC 4.1 L RBC 2.96 L Hgb 8.9 L Hct 27.9 L MCV 94.3 MCH 30.1 MCHC 31.9 L RDW 17.2 H Plt Count 66 L MPV 10.8 H Immature Gran % (Auto) Neut % (Auto) Lymph % (Auto) [place] % (Auto) Eos % (Auto) Baso % (Auto) Lymph # (Auto) [place] # (Auto) Eos # (Auto) Baso # (Auto) Abs Immat Gran (auto) Absolute Neuts (auto) Absolute Nucleated RBC Band Neutrophils % Nucleated RBC % Platelet Estimate Large Platelets % Immature Plt Fraction 7.3 Anisocytosis Schistocytes Sodium 136 L Potassium 3.6 Chloride 105 Carbon Dioxide 30 Anion Gap 1 L BUN 9 Creatinine 0.52 L Estim Creat Clear Calc Not Reportable Estimated GFR > 60 Glucose 204 H POC Capillary Glucose 221 H 187 H Calcium 8.5 Phosphorus 3.0 Magnesium 1.8 Transferrin Total Bilirubin 0.4 AST 19 ALT 15 Alkaline Phosphatase 43 Total Protein 4.9 L Albumin 2.5 L 10/20/24 10/20/24 10/20/24 06:20 08:05 11:30 WBC RBC Hgb Hct MCV MCH MCHC RDW Plt Count MPV Immature Gran % (Auto) Neut % (Auto) Lymph % (Auto) [place] % (Auto) Eos % (Auto) Baso % (Auto) Lymph # (Auto) [place] # (Auto) Eos # (Auto) Baso # (Auto) Abs Immat Gran (auto) Absolute Neuts (auto) Absolute Nucleated RBC Band Neutrophils % Nucleated RBC % Platelet Estimate Large Platelets % Immature Plt Fraction Anisocytosis Schistocytes Sodium Potassium Chloride Carbon Dioxide Anion Gap BUN Creatinine Estim Creat Clear Calc Estimated GFR Glucose POC Capillary Glucose 208 H 200 H 246 H Calcium Phosphorus Magnesium Transferrin Total Bilirubin AST ALT Alkaline Phosphatase Total Protein Albumin
[2024-10-20] MEDS: HYDROcodone/acetaminophen (*CRX) 5-325 MG TABLET 1 TAB PO (21:16)
[2024-10-21] VITALS (12 sets, daily range): BP systolic 119–138; BP diastolic 38–56; PULSE 61–85; RESP 16–20; TEMP 36.6–37.4; O2SAT 94–100
[2024-10-21 06:26] LABS: Hematocrit 27.3 % (37.0-47.0); Hemoglobin 8.7 g/dL (12.0-15.0); Immature Platelet Fraction Pct 7.9 % (0.9-11.2); Mean Corpuscular HGB Conc 31.9 g/dl (32-36); Mean Corpuscular Hemoglobin 30.2 pg (26-34); Mean Corpuscular Volume 94.8 fl (80-100); Platelet Count Result 63 k/mm3 (150-375); Red Blood Count 2.88 M/mm3 (4.2-5.4); White Blood Count 3.6 K/mm3 (4.5-10.0)
[2024-10-21] MEDS: METOCLOPRAMIDE HCL 10 MG TABLET PO ×3 (06:52→17:07)
[2024-10-21] MEDS: CENTRAL LINE FLUSH 10 ML IV PUSH ×3 (06:53→22:00)
[2024-10-21 06:58] LABS: Alanine Aminotransferase 14 U/L (6-35); Albumin Level 2.5 g/dL (3.5-5.1); Alkaline Phosphatase 49 U/L (38-126); Anion Gap 1 mmol/L (4-12); Aspartate Amino Transferase 20 U/L (14-36); Bilirubin,Total 0.5 mg/dL (0.2-1.3); Blood Urea Nitrogen 7 mg/dL (7-17); Calcium 9.1 mg/dL (8.4-10.2); Carbon Dioxide 31 mmol/L (22-30); Chloride 105 mmol/L (98-107); Estimated Glomerular Filt Rate > 60; Glucose 134 mg/dL (65-110); Magnesium 1.8 mg/dL (1.6-2.3); Potassium 3.6 mmol/L (3.4-5.0); Sodium 137 mmol/L (137-145); Total Protein 4.9 g/dL (6.3-8.2)
[2024-10-21] MEDS: METOPROLOL TARTRATE INJ 5 MG/5 ML VIAL 2.5 MG IV PUSH ×2 (08:40→20:57)
[2024-10-21] MEDS: FAMOTIDINE 20 MG/2 ML VIAL IV PUSH ×2 (08:40→20:57)
[2024-10-21] MEDS: LIDOCAINE 5% PATCH 1 PATCH TRANSDERM (08:41)
--- NOTE | 2024-10-21 10:22 | P.PNGS_ITS ---
Progress Note: A&P Assessment and Plan (1) SBO (small bowel obstruction): Code(s): K56.609 - Unspecified intestinal obstruction, unspecified as to partial versus complete obstruction Status: Acute Assessment and Plan: * Resolved following exploratory laparotomy with adhesiolysis. Bowels are moving and she is tolerating full liquids. No more vomiting overnight. * Advance to a diabetic diet * PT/OT following and working on increasing her strength, up to chair/ambulate in halls * Spoke with CC about d/c planning. Patient lives at home alone. Plan is for her to hopefully d/c to [facility] bed and CC is working on the approval process. Plan I have discussed the patient's case and plan of care with Dr. Taylor. Subjective Subjective Date/Time Seen: 10/21/24 10:22 Post Op day: 6 Patient reports: no new complaints, flatus and bowel movement (another BM yesterday) Interval history: Patient doing well today. No more vomiting since 2 nights ago. Mild nausea at one point last night, but resolved. Tolerating her diet well and she is trying to stick to smaller more frequent meals. She has some abdominal pain this morning and is pointing at her midline incision. Reports it is mild and tolerable. Review of Systems Review of Systems: All systems reviewed & are unremarkable except as noted in HPI and below Exam GI: Inspection: non-distended GI Palp: Yes Soft to palpation, Yes Tenderness to palpation present (GI) (mild incisional TTP and left mid abd just to the left of the incision) and No Guarding due to palpation present (GI) Auscultation: normal bowel sounds Other: Midline incisions with keenan intact, no erythema or drainage Objective Data Vital Signs Vital Signs: Vital Signs - 24 hr 10/20/24 13:00 10/20/24 14:00 10/20/24 16:00 Temperature 99.0 F Pulse Rate 73 86 79 Respiratory Rate 18 Blood Pressure 124/54 L Pulse Oximetry 96 Oxygen Delivery 10/20/24 20:00 10/20/24 20:04 10/20/24 21:00 Temperature 97.4 F L Pulse Rate 67 67 74 Respiratory Rate 16 16 Blood Pressure 117/41 L Pulse Oximetry 95 94 Oxygen Delivery Room Air 10/20/24 21:12 10/20/24 21:26 10/21/24 00:00 Temperature Pulse Rate 71 67 Respiratory Rate Blood Pressure Pulse Oximetry Oxygen Delivery Room Air 10/21/24 04:00 10/21/24 05:00 10/21/24 08:38 Temperature 97.8 F Pulse Rate 70 61 76 Respiratory Rate 16 19 Blood Pressure 120/38 L 119/49 L Pulse Oximetry 97 96 Oxygen Delivery 10/21/24 08:40 Temperature Pulse Rate 76 Respiratory Rate Blood Pressure Pulse Oximetry Oxygen Delivery Intake/Output Intake/Output: Intake & Output 10/18/24 10/19/24 10/20/24 10/21/24 23:59 23:59 23:59 23:59 Intake Total 2092.5 1825.3 810 240 Balance 2092.5 1825.3 810 240 Meds/Results Medications: Active Medications Generic Name Dose Route Start Last Admin Trade Name Freq PRN Reason Stop Dose Admin Acetaminophen 1,000 mg 10/19/24 11:18 Acetaminophen 500 Mg Tablet PO Q6H PRN Mild Pain (1-3) or Fever Hydrocodone Bitart/Acetaminophen 1 tab 10/19/24 11:18 10/20/24 21:16 Hydrocodone/Acetaminophen (*Crx) 5-325 Mg Tablet PO 1 tab Q4H PRN Administration Pain Rated 4-6 Aspirin 81 mg 10/10/24 15:10 10/12/24 14:26 Aspirin 81 Mg Enteric Tablet PO 11/10/24 15:09 Not Given DAILY TAMIR Atorvastatin Calcium 40 mg 10/10/24 21:00 10/11/24 21:22 Atorvastatin 40 Mg Tablet PO Not Given HS TAMIR Dextrose 12.5 gm 10/10/24 15:02 Dextrose 50% 25 Gm/50 Ml Syringe IV PUSH PRN PRN Hypoglycemia Protocol Famotidine 20 mg 10/12/24 21:00 10/21/24 08:40 Famotidine 20 Mg/2 Ml Vial IV PUSH 20 mg Q12HR TAMIR Administration Furosemide 20 mg 10/10/24 14:59 Furosemide 20 Mg Tablet PO Q12H PRN edema Glucagon 1 mg 10/10/24 15:02 Glucagon For Inj 1 Mg Vial IM PRN PRN Hypoglycemia Protocol Glucose 15 gm 10/10/24 15:02 Glucose Oral Gel 15 Gm Of Glucse In 37.5 Gm Tube PO PRN PRN Hypoglycemia Protocol Hydromorphone HCl 1 mg 10/11/24 09:31 10/20/24 00:45 Hydromorphone Hcl Inj (*Crx) 2 Mg/Ml Vial IV PUSH 1 mg Q3H PRN Administration Pain Rated 7-10 Dextrose 1,000 mls @ 50 mls/hr 10/15/24 12:43 Dextrose 10% IV CONT .Q20H PRN if PN is interrupted Ibuprofen 800 mg in 200 mls @ 400 mls/hr 10/19/24 11:19 Caldolor 800 Mg/200 Ml IVPB Q8H PRN Pain Rated 4-6 Insulin Aspart 2 - 5 units 10/12/24 17:00 10/21/24 07:59 Insulin Aspart (*Bkc) 100 Units/Ml SUB-Q Not Given TIDWM [facility] Protocol Insulin Glargine 14 units 10/10/24 21:00 10/12/24 01:35 Insulin Glargine (*Bkc) 100 Units/Ml SUB-Q Not Given HS TAMIR Lidocaine 1 patch 10/16/24 09:00 10/21/24 08:41 Lidocaine 5% Patch TRANSDERM 1 patch DAILY TAMIR Administration Lisinopril 10 mg 10/10/24 15:10 10/12/24 14:26 Lisinopril 10 Mg Tablet PO Not Given DAILY TAMIR Metoclopramide HCl 10 mg 10/20/24 11:30 10/21/24 06:52 Metoclopramide Hcl 10 Mg Tablet PO 10 mg TIDAC TAMIR Administration Metoprolol Succinate 25 mg 10/10/24 15:10 10/12/24 14:26 Metoprolol Succinate Ext Rel 25 Mg Tabcr PO Not Given DAILY TAMIR Metoprolol Tartrate 2.5 mg 10/12/24 21:00 10/21/24 08:40 Metoprolol Tartrate Inj 5 Mg/5 Ml Vial IV PUSH 2.5 mg Q12HR TAMIR Administration Metoprolol Tartrate 5 mg 10/15/24 18:58 Metoprolol Tartrate Inj 5 Mg/5 Ml Vial IV PUSH Q4H PRN Hypertension Ondansetron HCl 4 mg 10/10/24 03:52 10/20/24 21:16 Ondansetron Inj 4 Mg/2 Ml Vial IV PUSH 4 mg Q4H PRN Administration Nausea Sertraline HCl 50 mg 10/10/24 15:10 10/12/24 14:27 Sertraline Hcl 50 Mg Tablet PO Not Given QAM TAMIR Sodium Chloride 10 ml 07/10/25 22:00 10/21/24 06:53 Central Line Flush IV PUSH 10 ml Q8HR TAMIR Administration Sodium Chloride 10 ml 10/15/24 14:41 Central Line Flush IV PUSH PRN PRN with TPN bag changes Sodium Chloride 20 ml 10/15/24 14:41 Central Line Flush IV PUSH PRN PRN after blood draws Radiology Results: ITS Impressions Abdomen/Pelvis CT 10/11/24 09:55 IMPRESSION: Interval removal of the nasogastric tube when compared with previous examination. Redemonstration of multiple loops of prominent fluid-filled small bowel loops which extend into the pelvis for which small bowel obstruction is suspected. Rectosigmoid diverticulosis and mural thickening with limited evaluation for surrounding inflammatory change secondary to the lack of intravenous contrast and the lack of intrapelvic fat. Retroperitoneal lymphadenopathy is suspected, although detection is limited without intravenous contrast. Perihepatic and perisplenic fluid is now identified, an interval change from previous days examination. Given the culmination of findings (as detailed above) premedication for patient's contrast allergy is recommended with repeat evaluation with intravenous contrast. Upper GI and Small Bowel X-Ray 10/12/24 16:57 IMPRESSION: 1. Normal small bowel transit time to the cecum of 2 hours with no frankly dilated loops of small bowel to suggest obstruction. 2. Large amount of residual contrast within the stomach on the 4 hour delayed images suggestive of gastroparesis. 3. Unchanged 1.6 cm left renal stone. Abdomen X-Ray 10/18/24 06:18 Impression: NG tube in place, side port just below the diaphragm. Chest X-Ray 10/18/24 10:27 Impression: Support tubes in place, as above. Minimal right pleural effusion and probable minimal right basilar atelectatic change. Labs Labs: Laboratory Results - last 24 hr 10/20/24 10/20/24 10/20/24 11:30 16:36 19:44 WBC RBC Hgb Hct MCV MCH MCHC RDW Plt Count MPV % Immature Plt Fraction Sodium Potassium Chloride Carbon Dioxide Anion Gap BUN Creatinine Estim Creat Clear Calc Estimated GFR Glucose POC Capillary Glucose 246 H 220 H 249 H Calcium Magnesium Total Bilirubin AST ALT Alkaline Phosphatase Total Protein Albumin 10/21/24 10/21/24 06:10 07:50 WBC 3.6 L RBC 2.88 L Hgb 8.7 L Hct 27.3 L MCV 94.8 MCH 30.2 MCHC 31.9 L RDW 17.2 H Plt Count 63 L MPV 11.3 H % Immature Plt Fraction 7.9 Sodium 137 Potassium 3.6 Chloride 105 Carbon Dioxide 31 H Anion Gap 1 L BUN 7 Creatinine 0.49 L Estim Creat Clear Calc Not Reportable Estimated GFR > 60 Glucose 134 H POC Capillary Glucose 127 H Calcium 9.1 Magnesium 1.8 Total Bilirubin 0.5 AST 20 ALT 14 Alkaline Phosphatase 49 Total Protein 4.9 L Albumin 2.5 L
[2024-10-21] MEDS: INSULIN ASPART (*BKC) 100 UNITS/ML SUB-Q (17:07)
--- NOTE | 2024-10-21 17:08 | P.PNIM_ITS ---
Progress Note: A&P Assessment and Plan (1) SBO (small bowel obstruction): Code(s): K56.609 - Unspecified intestinal obstruction, unspecified as to partial versus complete obstruction Status: Acute Assessment and Plan: Patient initially presented with nausea vomiting, concerning for coffee ground emesis Initial CT abdomen 10/10 showed partial small bowel obstruction and NG tube was placed and patient admitted for bowel rest and decompression with a consult to GI. Patient had overall improvement with placement of NG tube, emesis looked more like gastroenteritis. NG tube was then removed however after initiating food patient's nausea vomiting return with mid abdominal pain and further emesis. Repeat CT abdomen 10/11 showed redemonstration of multiple loops of prominent fluid-filled small bowel loops which extend into the pelvis for which small bowel obstruction is suspected. NG tube reinserted. Small bowel series showed SBO NG tube in place for decompression, attempted clamping trial unsuccessful. Increased bloating and left sided abdominal pain. Not passing flatus and no BM today. NPO with IV fluids, consider PICC line and TPN if surgery wishes to keep NPO Status post exploratory laparotomy with abdominal adhesiolysis 10/15/2024 Analgesics: dilaudid 1 mg IV q 3 PRN Antiemetics Monitor I&Os, vital signs, neuro status and patient is a fall risk Monitor serum electrolytes and CBC Bowels moving now Started on diet per General surgery. NG removed 10/18/2024 (2) Shortness of breath: Code(s): R06.02 - Shortness of breath Status: Acute Assessment and Plan: Patient endorsing slight shortness of breath that is exacerbated with deep b reathing. No associated cough. WBC WNL. Currently on 2L NC, baseline RA. Has history of COPD. Continue to wean oxygen supplementation as tolerated to maintain SpO2 >88% No documented hypoxia on chart review Abdomen/pelvis CT 10/11 showed small bilateral pleural effusions, with adjacent compressive atelectasis and the remainder of the bilateral lung bases are clear. Chest XR with opacities at the left lung base with associated elevation of the left hemidiaphragm favoring atelectasis over pneumonia Incentive spirometer (3) Anemia: Code(s): D64.9 - Anemia, unspecified Status: Acute Assessment and Plan: Patient with history of anemia hemoglobin stable at this time Iron panel and ferritin pending B12 and folate WNL Monitor Hgb no evidence of GIB Transfuse PRBC if Hgb <7.0 (4) Hypertension: Code(s): I10 - Essential (primary) hypertension Status: Acute Assessment and Plan: Chronic, continue to monitor - holding home lisinopril 10 mg daily and metoprolol 25 mg daily as patient is NPO - continue IV push metoprolol 2.5 mg BID - BP remains well controlled, continue to monitor (5) HLD (hyperlipidemia): Code(s): E78.5 - Hyperlipidemia, unspecified Status: Acute Assessment and Plan: * continue statin when able (6) Diabetes: Code(s): E11.9 - Type 2 diabetes mellitus without complications Status: Acute Assessment and Plan: - hypoglycemia protocol - POC blood glucose q6 as patient is NPO - home medication - metformin 500 mg BID (on hold) - correct regimen ordered - low dose TIDWM (7) Thrombocytopenia: Code(s): D69.6 - Thrombocytopenia, unspecified Status: Acute Assessment and Plan: Chronic patient has been follow and monitored outpatient by primary * trend and monitor for bleeding * Transfuse PLT if <15 * recommend f/u outpatient with 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 will monitor and further recommendation to follow. Hypokalemia: Replace potassium Labs 10/19/2024 was likely erroneous with hemoglobin 6.7 immediate repeat was 10.4 as well as hypokalemia of 2.4 immediate repeat was 3.7 Subjective Date/time seen: 10/21/24 17:08 Interval history: Son nausea and vomiting last night. Reports abdominal soreness. Feels better this morning. With no nausea vomiting. patient stats had nausea and vomiting day before and suspect due to diabetes gastroparesis, patient is given Reglan which did help, patient is seen by surgery service, tolerating full liquid diet and advanced patient to diabetes diet, patient is participating in PT, will benefit going to rehab as patient lives alone and will benefit with rehab before going home. will monitor and further recommendation to follow. Review of Systems Review of Systems: As reviewed above in HPI All systems reviewed & are unremarkable except as noted in HPI and below Exam Narrative: Patient is comfortable, NAD HEENT: eyes are clear and none icteric LUNGS:CTA HEART: RR S1S2 ABD: BS+, Soft and nontender Lower extremities: no edema SKIN: nonjaundiced Neuro: grossly intact. Objective Data Vital Signs Vital Signs: Vital Signs - 24 hr 10/20/24 20:00 10/20/24 20:04 10/20/24 21:00 Temperature 36.3 C L Pulse Rate 67 67 74 Respiratory Rate 16 16 Blood Pressure 117/41 L Pulse Oximetry 95 94 Oxygen Delivery Room Air 10/20/24 21:12 10/20/24 21:26 10/21/24 00:00 Temperature Pulse Rate 71 67 Respiratory Rate Blood Pressure Pulse Oximetry Oxygen Delivery Room Air 10/21/24 04:00 10/21/24 05:00 10/21/24 08:00 Temperature 36.6 C Pulse Rate 70 61 69 Respiratory Rate 16 Blood Pressure 120/38 L Pulse Oximetry 97 Oxygen Delivery 10/21/24 08:38 10/21/24 08:40 10/21/24 12:00 Temperature Pulse Rate 76 76 71 Respiratory Rate 19 Blood Pressure 119/49 L Pulse Oximetry 96 Oxygen Delivery Intake/Output Intake/Output: Intake & Output 10/18/24 10/19/24 10/20/24 10/21/24 23:59 23:59 23:59 23:59 Intake Total 2092.5 1825.3 810 480 Balance 2092.5 1825.3 810 480 Meds/Results Medications: Active Medications Generic Name Dose Route Start Last Admin Trade Name Freq PRN Reason Stop Dose Admin Acetaminophen 1,000 mg 10/19/24 11:18 Acetaminophen 500 Mg Tablet PO Q6H PRN Mild Pain (1-3) or Fever Hydrocodone Bitart/Acetaminophen 1 tab 10/19/24 11:18 10/20/24 21:16 Hydrocodone/Acetaminophen (*Crx) 5-325 Mg Tablet PO 1 tab Q4H PRN Administration Pain Rated 4-6 Aspirin 81 mg 07/05/25 15:10 10/12/24 14:26 Aspirin 81 Mg Enteric Tablet PO 11/10/24 15:09 Not Given DAILY TAMIR Atorvastatin Calcium 40 mg 10/10/24 21:00 10/11/24 21:22 Atorvastatin 40 Mg Tablet PO Not Given HS TAMIR Dextrose 12.5 gm 10/10/24 15:02 Dextrose 50% 25 Gm/50 Ml Syringe IV PUSH PRN PRN Hypoglycemia Protocol Famotidine 20 mg 10/12/24 21:00 10/21/24 08:40 Famotidine 20 Mg/2 Ml Vial IV PUSH 20 mg Q12HR TAMIR Administration Furosemide 20 mg 10/10/24 14:59 Furosemide 20 Mg Tablet PO Q12H PRN edema Glucagon 1 mg 10/10/24 15:02 Glucagon For Inj 1 Mg Vial IM PRN PRN Hypoglycemia Protocol Glucose 15 gm 10/10/24 15:02 Glucose Oral Gel 15 Gm Of Glucse In 37.5 Gm Tube PO PRN PRN Hypoglycemia Protocol Hydromorphone HCl 1 mg 10/11/24 09:31 10/20/24 00:45 Hydromorphone Hcl Inj (*Crx) 2 Mg/Ml Vial IV PUSH 1 mg Q3H PRN Administration Pain Rated 7-10 Dextrose 1,000 mls @ 50 mls/hr 10/15/24 12:43 Dextrose 10% IV CONT .Q20H PRN if PN is interrupted Ibuprofen 800 mg in 200 mls @ 400 mls/hr 10/19/24 11:19 Caldolor 800 Mg/200 Ml IVPB Q8H PRN Pain Rated 4-6 Insulin Aspart 2 - 5 units 10/12/24 17:00 10/21/24 17:07 Insulin Aspart (*Bkc) 100 Units/Ml SUB-Q 2 units TIDWM TAMIR Administration Protocol Insulin Glargine 14 units 10/10/24 21:00 10/12/24 01:35 Insulin Glargine (*Bkc) 100 Units/Ml SUB-Q Not Given HS TAMIR Lidocaine 1 patch 10/16/24 09:00 10/21/24 08:41 Lidocaine 5% Patch TRANSDERM 1 patch DAILY TAMIR Administration Lisinopril 10 mg 10/10/24 15:10 10/12/24 14:26 Lisinopril 10 Mg Tablet PO Not Given DAILY TAMIR Metoclopramide HCl 10 mg 10/20/24 11:30 10/21/24 17:07 Metoclopramide Hcl 10 Mg Tablet PO 10 mg TIDAC TAMIR Administration Metoprolol Succinate 25 mg 10/10/24 15:10 10/12/24 14:26 Metoprolol Succinate Ext Rel 25 Mg Tabcr PO Not Given DAILY TAMIR Metoprolol Tartrate 2.5 mg 10/12/24 21:00 10/21/24 08:40 Metoprolol Tartrate Inj 5 Mg/5 Ml Vial IV PUSH 2.5 mg Q12HR TAMIR Administration Metoprolol Tartrate 5 mg 10/15/24 18:58 Metoprolol Tartrate Inj 5 Mg/5 Ml Vial IV PUSH Q4H PRN Hypertension Ondansetron HCl 4 mg 10/10/24 03:52 10/20/24 21:16 Ondansetron Inj 4 Mg/2 Ml Vial IV PUSH 4 mg Q4H PRN Administration Nausea Sertraline HCl 50 mg 10/10/24 15:10 10/12/24 14:27 Sertraline Hcl 50 Mg Tablet PO Not Given QAM TAMIR Sodium Chloride 10 ml 10/15/24 22:00 10/21/24 13:10 Central Line Flush IV PUSH 10 ml Q8HR TAMIR Administration Sodium Chloride 10 ml 10/15/24 14:41 Central Line Flush IV PUSH PRN PRN with TPN bag changes Sodium Chloride 20 ml 10/15/24 14:41 Central Line Flush IV PUSH PRN PRN after blood draws Radiology Results: ITS Impressions Abdomen/Pelvis CT 10/11/24 09:55 IMPRESSION: Interval removal of the nasogastric tube when compared with previous examination. Redemonstration of multiple loops of prominent fluid-filled small bowel loops which extend into the pelvis for which small bowel obstruction is suspected. Rectosigmoid diverticulosis and mural thickening with limited evaluation for surrounding inflammatory change secondary to the lack of intravenous contrast and the lack of intrapelvic fat. Retroperitoneal lymphadenopathy is suspected, although detection is limited without intravenous contrast. Perihepatic and perisplenic fluid is now identified, an interval change from previous days examination. Given the culmination of findings (as detailed above) premedication for patient's contrast allergy is recommended with repeat evaluation with intravenous contrast. Upper GI and Small Bowel X-Ray 10/12/24 16:57 IMPRESSION: 1. Normal small bowel transit time to the cecum of 2 hours with no frankly dilated loops of small bowel to suggest obstruction. 2. Large amount of residual contrast within the stomach on the 4 hour delayed i mages suggestive of gastroparesis. 3. Unchanged 1.6 cm left renal stone. Abdomen X-Ray 10/18/24 06:18 Impression: NG tube in place, side port just below the diaphragm. Chest X-Ray 10/18/24 10:27 Impression: Support tubes in place, as above. Minimal right pleural effusion and probable minimal right basilar atelectatic change. Labs Labs: Laboratory Results - last 24 hr 10/20/24 10/20/24 10/21/24 16:36 19:44 06:10 WBC 3.6 L RBC 2.88 L Hgb 8.7 L Hct 27.3 L MCV 94.8 MCH 30.2 MCHC 31.9 L RDW 17.2 H Plt Count 63 L MPV 11.3 H % Immature Plt Fraction 7.9 Sodium 137 Potassium 3.6 Chloride 105 Carbon Dioxide 31 H Anion Gap 1 L BUN 7 Creatinine 0.49 L Estim Creat Clear Calc Not Reportable Estimated GFR > 60 Glucose 134 H POC Capillary Glucose 220 H 249 H Calcium 9.1 Magnesium 1.8 Total Bilirubin 0.5 AST 20 ALT 14 Alkaline Phosphatase 49 Total Protein 4.9 L Albumin 2.5 L 10/21/24 10/21/24 10/21/24 07:50 11:44 16:53 WBC RBC Hgb Hct MCV MCH MCHC RDW Plt Count MPV % Immature Plt Fraction Sodium Potassium Chloride Carbon Dioxide Anion Gap BUN Creatinine Estim Creat Clear Calc Estimated GFR Glucose POC Capillary Glucose 127 H 182 H 237 H Calcium Magnesium Total Bilirubin AST ALT Alkaline Phosphatase Total Protein Albumin Quality VTE Prophylaxis VTE prophylaxis: mechanical ordered
[2024-10-21] MEDS: HYDROmorphone HCL INJ (*CRX) 2 MG/ML VIAL 1 MG IV PUSH (21:04)
[2024-10-21] MEDS: ONDANSETRON INJ 4 MG/2 ML VIAL IV PUSH (21:04)
[2024-10-22] VITALS (11 sets, daily range): BP systolic 135–140; BP diastolic 57–67; PULSE 69–88; RESP 18–20; TEMP 36.5–37.4; O2SAT 96–99
[2024-10-22] MEDS: CENTRAL LINE FLUSH 10 ML IV PUSH ×3 (05:29→23:37)
[2024-10-22] MEDS: METOCLOPRAMIDE HCL 10 MG TABLET PO ×3 (05:29→17:01)
[2024-10-22] MEDS: HYDROcodone/acetaminophen (*CRX) 5-325 MG TABLET 1 TAB PO ×2 (05:38→20:17)
[2024-10-22 06:21] LABS: Hematocrit 27.0 % (37.0-47.0); Hemoglobin 8.5 g/dL (12.0-15.0); Immature Platelet Fraction Pct 7.6 % (0.9-11.2); Mean Corpuscular HGB Conc 31.5 g/dl (32-36); Mean Corpuscular Hemoglobin 30.1 pg (26-34); Mean Corpuscular Volume 95.7 fl (80-100); Platelet Count Result 79 k/mm3 (150-375); Red Blood Count 2.82 M/mm3 (4.2-5.4); White Blood Count 5.0 K/mm3 (4.5-10.0)
[2024-10-22 06:32] LABS: Alanine Aminotransferase 18 U/L (6-35); Albumin Level 2.6 g/dL (3.5-5.1); Alkaline Phosphatase 62 U/L (38-126); Anion Gap 4 mmol/L (4-12); Aspartate Amino Transferase 23 U/L (14-36); Bilirubin,Total 0.5 mg/dL (0.2-1.3); Blood Urea Nitrogen 6 mg/dL (7-17); Calcium 9.1 mg/dL (8.4-10.2); Carbon Dioxide 30 mmol/L (22-30); Chloride 102 mmol/L (98-107); Estimated Glomerular Filt Rate > 60; Glucose 173 mg/dL (65-110); Magnesium 1.6 mg/dL (1.6-2.3); Potassium 3.4 mmol/L (3.4-5.0); Sodium 136 mmol/L (137-145); Total Protein 4.9 g/dL (6.3-8.2)
[2024-10-22] MEDS: FAMOTIDINE 20 MG/2 ML VIAL IV PUSH ×2 (08:59→20:17)
[2024-10-22] MEDS: LIDOCAINE 5% PATCH 1 PATCH TRANSDERM (08:59)
[2024-10-22] MEDS: METOPROLOL TARTRATE INJ 5 MG/5 ML VIAL 2.5 MG IV PUSH ×2 (09:00→20:17)
--- NOTE | 2024-10-22 10:56 | PCNFU ---
Nutrition Follow-Up Complete: Inadequate energy intake related to NPO status as evidenced by current diet orders Goal:Meet estimated nutrition needs Pt meeting goal, continue with same goal Pt current nutrition is Diabetic, Ensure high protein BID . Nutrition recommendation: continue with current plan of care Last recorded weight is 66.4 kg. Bowel Motility: +BM 10/21 Labs Reviewed: Hgb:8.5, HCt:27, Alb:26, NA:136, BUN:6, Cr: 0.57, Glu:173 Meds Noted: lantus, reglan Skin: WNL Additional Notes: TPN has been stopped. Pt on a Diabetic diet now, intake good at 50-100% most all meals. Supplements in place however noted pt does not like Ensure. Will change to nutrition ice cream cups per previous preference. Monitor for diet orders, intake, tolerance, wt, labs. Follow up in 5 days.
--- NOTE | 2024-10-22 11:04 | PM.PNGS ---
Progress Note: A&P Assessment and Plan (1) SBO (small bowel obstruction): Code(s): K56.609 - Unspecified intestinal obstruction, unspecified as to partial versus complete obstruction Status: Acute Assessment and Plan: Resolved following exploratory laparotomy with adhesiolysis. Bowels are moving and she is tolerating solids. Incision healing well. She is now complaining of LLQ pain that progressed overnight. WBC count normal, but she is more tender today in the LLQ. She has a history of diverticulitis that was treated a few months ago. Will repeat CT abdomen and pelvis w/o contrast due to her contrast allergy to further evaluate. Potassium 3.4 today and replaced by Hospitalist CC working on eventual placement to [facility] swing bed when medically stable for discharge (2) Hemorrhoids: Qualifiers: Hemorrhoid type: unspecified Qualified Code(s): K64.9 - Unspecified hemorrhoids Code(s): K64.9 - Unspecified hemorrhoids Status: Acute Assessment and Plan: Complaining of rectal pain with bowel movements. Inflamed external hemorrhoid noted on exam. No bleeding and no thrombosed hemorrhoid. Will start topical cream and Sitz baths for symptomatic relief. Plan I have discussed the patient's case and plan of care with Dr. Taylor. Subjective Subjective Date/Time Seen: 10/22/24 11:04 Post Op day: 7 Patient reports: nausea (Intermittent nausea, chronic, Hx gastroparesis) Interval history: Patient had a rough night due to abdominal pain. She complains of LLQ pain that radiates across her lower abdomen. She is also having the incisional pain that she has been having. The pain was severe but improved with IV dilaudid. No change in her intermittent nausea. No vomiting. She just had a large liquid BM this morning. She is tolerating her diet. She also complains of vaginal bulging with pain in her vagina and rectal pain that she believes is related to her hemorrhoids. No blood in her stool or noted when wiping. Exam Const: General: no acute distress Orientation/consciousness: patient oriented x3 GI: Inspection: non-distended and incision (dry and keenan intact, no erythema, minimal bruising noted at bottom) GI Palp: Yes Soft to palpation, Yes Tenderness to palpation present (GI) (mostly in the LLQ, mild incisional tenderness, and mild RLQ tenderness), No Guarding due to palpation present (GI), No Hernia present and No Rebound tenderness present Auscultation: normal bowel sounds Rectal Exam: No abscess, hemorrhoids (inflamed left posterior hemorrhoid visible, no bleeding, no thrombosis) and tenderness (at hemorrhoid) : External Female Exam: normal external appearance, No erythema, No externally tender, No external swelling and other (no discharge noted, no external prolapse noted ) Objective Data Vital Signs Vital Signs: Vital Signs - 24 hr 10/21/24 12:00 10/21/24 16:00 10/21/24 16:00 Temperature 99.3 F Pulse Rate 71 78 82 Respiratory Rate 18 Blood Pressure 138/52 L Pulse Oximetry 100 Oxygen Delivery 10/21/24 20:00 10/21/24 20:57 10/21/24 21:15 Temperature Pulse Rate 72 85 Respiratory Rate Blood Pressure Pulse Oximetry 96 Oxygen Delivery Room Air 10/21/24 22:00 10/22/24 00:00 10/22/24 04:00 Temperature 99.4 F Pulse Rate 72 70 71 Respiratory Rate 20 Blood Pressure 122/56 L Pulse Oximetry 94 Oxygen Delivery 10/22/24 05:52 10/22/24 09:00 Temperature 99.4 F Pulse Rate 71 71 Respiratory Rate 20 Blood Pressure 135/57 L Pulse Oximetry 99 Oxygen Delivery Intake/Output Intake/Output: Intake & Output 10/19/24 10/20/24 10/21/24 10/22/24 23:59 23:59 23:59 23:59 Intake Total 1825.3 810 720 676 Balance 1825.3 810 720 676 Meds/Results Medications: Active Medications Generic Name Dose Route Start Last Admin Trade Name Freq PRN Reason Stop Dose Admin Acetaminophen 1,000 mg 10/19/24 11:18 Acetaminophen 500 Mg Tablet PO Q6H PRN Mild Pain (1-3) or Fever Hydrocodone Bitart/Acetaminophen 1 tab 10/19/24 11:18 10/22/24 05:38 Hydrocodone/Acetaminophen (*Crx) 5-325 Mg Tablet PO 1 tab Q4H PRN Administration Pain Rated 4-6 Aspirin 81 mg 10/10/24 15:10 10/12/24 14:26 Aspirin 81 Mg Enteric Tablet PO 11/10/24 15:09 Not Given DAILY [facility] Atorvastatin Calcium 40 mg 10/10/24 21:00 10/11/24 21:22 Atorvastatin 40 Mg Tablet PO Not Given HS TAMIR Dextrose 12.5 gm 10/10/24 15:02 Dextrose 50% 25 Gm/50 Ml Syringe IV PUSH PRN PRN Hypoglycemia Protocol Famotidine 20 mg 10/12/24 21:00 10/22/24 08:59 Famotidine 20 Mg/2 Ml Vial IV PUSH 20 mg Q12HR TAMIR Administration Furosemide 20 mg 10/10/24 14:59 Furosemide 20 Mg Tablet PO Q12H PRN edema Glucagon 1 mg 10/10/24 15:02 Glucagon For Inj 1 Mg Vial IM PRN PRN Hypoglycemia Protocol Glucose 15 gm 10/10/24 15:02 Glucose Oral Gel 15 Gm Of Glucse In 37.5 Gm Tube PO PRN PRN Hypoglycemia Protocol Hydrocortisone/Pramoxine 1 applic 10/22/24 21:00 Hydrocortisone/Pramoxine 2.5% 30 Gm Cream RECTAL 10/26/24 12:00 Q12HR TAMIR Hydromorphone HCl 1 mg 10/11/24 09:31 10/21/24 21:04 Hydromorphone Hcl Inj (*Crx) 2 Mg/Ml Vial IV PUSH 1 mg Q3H PRN Administration Pain Rated 7-10 Dextrose 1,000 mls @ 50 mls/hr 10/15/24 12:43 Dextrose 10% IV CONT .Q20H PRN if PN is interrupted Ibuprofen 800 mg in 200 mls @ 400 mls/hr 10/19/24 11:19 Caldolor 800 Mg/200 Ml IVPB Q8H PRN Pain Rated 4-6 Insulin Aspart 2 - 5 units 10/12/24 17:00 10/22/24 08:58 Insulin Aspart (*Bkc) 100 Units/Ml SUB-Q Not Given TIDWM [facility] Protocol Insulin Glargine 14 units 10/10/24 21:00 10/12/24 01:35 Insulin Glargine (*Bkc) 100 Units/Ml SUB-Q Not Given HS [facility] Lidocaine 1 patch 10/16/24 09:00 10/22/24 08:59 Lidocaine 5% Patch TRANSDERM 1 patch DAILY TAMIR Administration Lisinopril 10 mg 10/10/24 15:10 10/12/24 14:26 Lisinopril 10 Mg Tablet PO Not Given DAILY TAMIR Magnesium Oxide 400 mg 10/23/24 09:00 Magnesium Oxide 400 Mg Tablet PO QAM TAMIR Metoclopramide HCl 10 mg 10/20/24 11:30 10/22/24 05:29 Metoclopramide Hcl 10 Mg Tablet PO 10 mg TIDAC TAMIR Administration Metoprolol Succinate 25 mg 10/10/24 15:10 10/12/24 14:26 Metoprolol Succinate Ext Rel 25 Mg Tabcr PO Not Given DAILY TAMIR Metoprolol Tartrate 2.5 mg 10/12/24 21:00 10/22/24 09:00 Metoprolol Tartrate Inj 5 Mg/5 Ml Vial IV PUSH 2.5 mg Q12HR TAMIR Administration Metoprolol Tartrate 5 mg 10/15/24 18:58 Metoprolol Tartrate Inj 5 Mg/5 Ml Vial IV PUSH Q4H PRN Hypertension Ondansetron HCl 4 mg 10/10/24 03:52 10/21/24 21:04 Ondansetron Inj 4 Mg/2 Ml Vial IV PUSH 4 mg Q4H PRN Administration Nausea Sertraline HCl 50 mg 10/10/24 15:10 10/12/24 14:27 Sertraline Hcl 50 Mg Tablet PO Not Given QAM TAMIR Sodium Chloride 10 ml 10/15/24 22:00 10/22/24 05:29 Central Line Flush IV PUSH 10 ml Q8HR TAMIR Administration Sodium Chloride 10 ml 10/15/24 14:41 Central Line Flush IV PUSH PRN PRN with TPN bag changes Sodium Chloride 20 ml 10/15/24 14:41 Central Line Flush IV PUSH PRN PRN after blood draws Radiology Results: ITS Impressions Abdomen/Pelvis CT 10/11/24 09:55 IMPRESSION: Interval removal of the nasogastric tube when compared with previous examination. Redemonstration of multiple loops of prominent fluid-filled small bowel loops which extend into the pelvis for which small bowel obstruction is suspected. Rectosigmoid diverticulosis and mural thickening with limited evaluation for surrounding inflammatory change secondary to the lack of intravenous contrast and the lack of intrapelvic fat. Retroperitoneal lymphadenopathy is suspected, although detection is limited without intravenous contrast. Perihepatic and perisplenic fluid is now identified, an interval change from previous days examination. Given the culmination of findings (as detailed above) premedication for patient's contrast allergy is recommended with repeat evaluation with intravenous contrast. Upper GI and Small Bowel X-Ray 10/12/24 16:57 IMPRESSION: 1. Normal small bowel transit time to the cecum of 2 hours with no frankly dilated loops of small bowel to suggest obstruction. 2. Large amount of residual contrast within the stomach on the 4 hour delayed images suggestive of gastroparesis. 3. Unchanged 1.6 cm left renal stone. Abdomen X-Ray 10/18/24 06:18 Impression: NG tube in place, side port just below the diaphragm. Chest X-Ray 10/18/24 10:27 Impression: Support tubes in place, as above. Minimal right pleural effusion and probable minimal right basilar atelectatic change. Labs Labs: Laboratory Results - last 24 hr 10/21/24 10/21/24 10/22/24 11:44 16:53 05:37 WBC 5.0 RBC 2.82 L Hgb 8.5 L Hct 27.0 L MCV 95.7 MCH 30.1 MCHC 31.5 L RDW 17.1 H Plt Count 79 L MPV 11.6 H % Immature Plt Fraction 7.6 Sodium 136 L Potassium 3.4 Chloride 102 Carbon Dioxide 30 Anion Gap 4 BUN 6 L Creatinine 0.57 L Estim Creat Clear Calc Not Reportable Estimated GFR > 60 Glucose 173 H POC Capillary Glucose 182 H 237 H Calcium 9.1 Magnesium 1.6 Total Bilirubin 0.5 AST 23 ALT 18 Alkaline Phosphatase 62 Total Protein 4.9 L Albumin 2.6 L 10/22/24 07:44 WBC RBC Hgb Hct MCV MCH MCHC RDW Plt Count MPV % Immature Plt Fraction Sodium Potassium Chloride Carbon Dioxide Anion Gap BUN Creatinine Estim Creat Clear Calc Estimated GFR Glucose POC Capillary Glucose 159 H Calcium Magnesium Total Bilirubin AST ALT Alkaline Phosphatase Total Protein Albumin
[2024-10-22] MEDS: POTASSIUM CHLORIDE 20 MEQ PACKET (FOR LIQUID) 40 MEQ PO (11:54)
--- NOTE | 2024-10-22 15:10 | P.PNIM_ITS ---
Progress Note: A&P Assessment and Plan (1) SBO (small bowel obstruction): Code(s): K56.609 - Unspecified intestinal obstruction, unspecified as to partial versus complete obstruction Status: Acute Assessment and Plan: Patient initially presented with nausea vomiting, concerning for coffee ground emesis Initial CT abdomen 10/10 showed partial small bowel obstruction and NG tube was placed and patient admitted for bowel rest and decompression with a consult to GI. Patient had overall improvement with placement of NG tube, emesis looked more like gastroenteritis. NG tube was then removed however after initiating food patient's nausea vomiting return with mid abdominal pain and further emesis. Repeat CT abdomen 10/11 showed redemonstration of multiple loops of prominent fluid-filled small bowel loops which extend into the pelvis for which small bowel obstruction is suspected. NG tube reinserted. Small bowel series showed SBO NG tube in place for decompression, attempted clamping trial unsuccessful. Increased bloating and left sided abdominal pain. Not passing flatus and no BM today. NPO with IV fluids, consider PICC line and TPN if surgery wishes to keep NPO Status post exploratory laparotomy with abdominal adhesiolysis 10/15/2024 Analgesics: dilaudid 1 mg IV q 3 PRN Antiemetics Monitor I&Os, vital signs, neuro status and patient is a fall risk Monitor serum electrolytes and CBC Bowels moving now Started on diet per General surgery. NG removed 10/18/2024 (2) Shortness of breath: Code(s): R06.02 - Shortness of breath Status: Acute Assessment and Plan: Patient endorsing slight shortness of breath that is exacerbated with deep b reathing. No associated cough. WBC WNL. Currently on 2L NC, baseline RA. Has history of COPD. Continue to wean oxygen supplementation as tolerated to maintain SpO2 >88% No documented hypoxia on chart review Abdomen/pelvis CT 10/11 showed small bilateral pleural effusions, with adjacent compressive atelectasis and the remainder of the bilateral lung bases are clear. Chest XR with opacities at the left lung base with associated elevation of the left hemidiaphragm favoring atelectasis over pneumonia Incentive spirometer (3) Anemia: Code(s): D64.9 - Anemia, unspecified Status: Acute Assessment and Plan: Patient with history of anemia hemoglobin stable at this time Iron panel and ferritin pending B12 and folate WNL Monitor Hgb no evidence of GIB Transfuse PRBC if Hgb <7.0 (4) Hypertension: Code(s): I10 - Essential (primary) hypertension Status: Acute Assessment and Plan: Chronic, continue to monitor - holding home lisinopril 10 mg daily and metoprolol 25 mg daily as patient is NPO - continue IV push metoprolol 2.5 mg BID - BP remains well controlled, continue to monitor (5) HLD (hyperlipidemia): Code(s): E78.5 - Hyperlipidemia, unspecified Status: Acute Assessment and Plan: * continue statin when able (6) Diabetes: Code(s): E11.9 - Type 2 diabetes mellitus without complications Status: Acute Assessment and Plan: - hypoglycemia protocol - POC blood glucose q6 as patient is NPO - home medication - metformin 500 mg BID (on hold) - correct regimen ordered - low dose TIDWM (7) Thrombocytopenia: Code(s): D69.6 - Thrombocytopenia, unspecified Status: Acute Assessment and Plan: Chronic patient has been follow and monitored outpatient by primary * trend and monitor for bleeding * Transfuse PLT if <15 * recommend f/u outpatient with chemical engineering teacher Plan patient stats had nausea and vomiting day before and suspect due to diabetes gastroparesis, patient is given Reglan which did help, patient is seen by surgery service, tolerating full liquid diet and advanced patient to diabetes diet, patient is participating in PT, was able to walk in the hallways today, will benefit going to rehab as patient lives alone and will benefit with rehab before going home. patient had complained of left lower abdomen to surgery CT scan of abdomen showed a stone in the left renal pelvis is seen measuring 1.8 x 1.1 cm. Mild left hydronephrotic changes seen. will consult urologist for further recommendation. will monitor and further recommendation to follow. Hypokalemia: Replace potassium Labs 10/19/2024 was likely erroneous with hemoglobin 6.7 immediate repeat was 10.4 as well as hypokalemia of 2.4 immediate repeat was 3.7 Subjective Date/time seen: 10/22/24 15:10 Interval history: Son nausea and vomiting last night. Reports abdominal soreness. Feels better this morning. With no nausea vomiting. patient stats had nausea and vomiting day before and suspect due to diabetes gastroparesis, patient is given Reglan which did help, patient is seen by surgery service, tolerating full liquid diet and advanced patient to diabetes diet, patient is participating in PT, was able to walk in the hallways today, will benefit going to rehab as patient lives alone and will benefit with rehab before going home. patient had complained of left lower abdomen to surgery CT scan of abdomen showed a stone in the left renal pelvis is seen measuring 1.8 x 1.1 cm. Mild left hydronephrotic changes seen. will consult urologist for further recommendation. will monitor and further recommendation to follow. Review of Systems Review of Systems: As reviewed above in HPI All systems reviewed & are unremarkable except as noted in HPI and below Exam Narrative: Patient is comfortable, NAD HEENT: eyes are clear and none icteric LUNGS:CTA HEART: RR S1S2 ABD: BS+, Soft and nontender Lower extremities: no edema SKIN: nonjaundiced Neuro: grossly intact. Objective Data Vital Signs Vital Signs: Vital Signs - 24 hr 10/21/24 16:00 10/21/24 16:00 10/21/24 20:00 Temperature 37.4 C Pulse Rate 78 82 72 Respiratory Rate 18 Blood Pressure 138/52 L Pulse Oximetry 100 Oxygen Delivery 10/21/24 20:57 10/21/24 21:15 10/21/24 22:00 Temperature 37.4 C Pulse Rate 85 72 Respiratory Rate 20 Blood Pressure 122/56 L Pulse Oximetry 96 94 Oxygen Delivery Room Air 10/22/24 00:00 10/22/24 04:00 10/22/24 05:52 Temperature 37.4 C Pulse Rate 70 71 71 Respiratory Rate 20 Blood Pressure 135/57 L Pulse Oximetry 99 Oxygen Delivery 10/22/24 09:00 10/22/24 14:00 Temperature 36.6 C Pulse Rate 71 69 Respiratory Rate 18 Blood Pressure 140/67 Pulse Oximetry 96 Oxygen Delivery Intake/Output Intake/Output: Intake & Output 10/19/24 10/20/24 10/21/24 10/22/24 23:59 23:59 23:59 23:59 Intake Total 1825.3 810 720 676 Balance 1825.3 810 720 676 Meds/Results Medications: Active Medications Generic Name Dose Route Start Last Admin Trade Name Freq PRN Reason Stop Dose Admin Acetaminophen 1,000 mg 10/19/24 11:18 Acetaminophen 500 Mg Tablet PO Q6H PRN Mild Pain (1-3) or Fever Hydrocodone Bitart/Acetaminophen 1 tab 10/19/24 11:18 10/22/24 05:38 Hydrocodone/Acetaminophen (*Crx) 5-325 Mg Tablet PO 1 tab Q4H PRN Administration Pain Rated 4-6 Aspirin 81 mg 10/10/24 15:10 10/12/24 14:26 Aspirin 81 Mg Enteric Tablet PO 11/10/24 15:09 Not Given DAILY TAMIR Atorvastatin Calcium 40 mg 10/10/24 21:00 10/11/24 21:22 Atorvastatin 40 Mg Tablet PO Not Given HS TAMIR Dextrose 12.5 gm 10/10/24 15:02 Dextrose 50% 25 Gm/50 Ml Syringe IV PUSH PRN PRN Hypoglycemia Protocol Famotidine 20 mg 10/12/24 21:00 10/22/24 08:59 Famotidine 20 Mg/2 Ml Vial IV PUSH 20 mg Q12HR TAMIR Administration Furosemide 20 mg 10/10/24 14:59 Furosemide 20 Mg Tablet PO Q12H PRN edema Glucagon 1 mg 10/10/24 15:02 Glucagon For Inj 1 Mg Vial IM PRN PRN Hypoglycemia Protocol Glucose 15 gm 10/10/24 15:02 Glucose Oral Gel 15 Gm Of Glucse In 37.5 Gm Tube PO PRN PRN Hypoglycemia Protocol Hydrocortisone/Pramoxine 1 applic 10/22/24 21:00 Hydrocortisone/Pramoxine 2.5% 30 Gm Cream RECTAL 10/26/24 12:00 Q12HR TAMIR Hydromorphone HCl 1 mg 10/11/24 09:31 10/21/24 21:04 Hydromorphone Hcl Inj (*Crx) 2 Mg/Ml Vial IV PUSH 1 mg Q3H PRN Administration Pain Rated 7-10 Dextrose 1,000 mls @ 50 mls/hr 10/15/24 12:43 Dextrose 10% IV CONT .Q20H PRN if PN is interrupted Ibuprofen 800 mg in 200 mls @ 400 mls/hr 10/19/24 11:19 Caldolor 800 Mg/200 Ml IVPB Q8H PRN Pain Rated 4-6 Insulin Aspart 2 - 5 units 10/12/24 17:00 10/22/24 11:52 Insulin Aspart (*Bkc) 100 Units/Ml SUB-Q Not Given TIDWM [facility] Protocol Insulin Glargine 14 units 10/10/24 21:00 10/12/24 01:35 Insulin Glargine (*Bkc) 100 Units/Ml SUB-Q Not Given HS TAMIR Lidocaine 1 patch 10/16/24 09:00 10/22/24 08:59 Lidocaine 5% Patch TRANSDERM 1 patch DAILY TAMIR Administration Lisinopril 10 mg 10/10/24 15:10 10/12/24 14:26 Lisinopril 10 Mg Tablet PO Not Given DAILY TAMIR Magnesium Oxide 400 mg 10/23/24 09:00 Magnesium Oxide 400 Mg Tablet PO QAM [facility] Metoclopramide HCl 10 mg 10/20/24 11:30 10/22/24 11:54 Metoclopramide Hcl 10 Mg Tablet PO 10 mg TIDAC TAMIR Administration Metoprolol Succinate 25 mg 10/10/24 15:10 10/12/24 14:26 Metoprolol Succinate Ext Rel 25 Mg Tabcr PO Not Given DAILY [facility] Metoprolol Tartrate 2.5 mg 10/12/24 21:00 10/22/24 09:00 Metoprolol Tartrate Inj 5 Mg/5 Ml Vial IV PUSH 2.5 mg Q12HR TAMIR Administration Metoprolol Tartrate 5 mg 10/15/24 18:58 Metoprolol Tartrate Inj 5 Mg/5 Ml Vial IV PUSH Q4H PRN Hypertension Ondansetron HCl 4 mg 10/10/24 03:52 10/21/24 21:04 Ondansetron Inj 4 Mg/2 Ml Vial IV PUSH 4 mg Q4H PRN Administration Nausea Sertraline HCl 50 mg 10/10/24 15:10 10/12/24 14:27 Sertraline Hcl 50 Mg Tablet PO Not Given QAM TAMIR Sodium Chloride 10 ml 10/15/24 22:00 10/22/24 13:52 Central Line Flush IV PUSH 10 ml Q8HR TAMIR Administration Sodium Chloride 10 ml 10/15/24 14:41 Central Line Flush IV PUSH PRN PRN with TPN bag changes Sodium Chloride 20 ml 10/15/24 14:41 Central Line Flush IV PUSH PRN PRN after blood draws Radiology Results: ITS Impressions Upper GI and Small Bowel X-Ray 10/12/24 16:57 IMPRESSION: 1. Normal small bowel transit time to the cecum of 2 hours with no frankly dilated loops of small bowel to suggest obstruction. 2. Large amount of residual contrast within the stomach on the 4 hour delayed images suggestive of gastroparesis. 3. Unchanged 1.6 cm left renal stone. Abdomen X-Ray 10/18/24 06:18 Impression: NG tube in place, side port just below the diaphragm. Chest X-Ray 10/18/24 10:27 Impression: Support tubes in place, as above. Minimal right pleural effusion and probable minimal right basilar atelectatic change. Abdomen/Pelvis CT 10/22/24 12:47 IMPRESSION: 1. No evidence of appendicitis, diverticulitis or intestinal obstruction. 2. Ascites seen in the pelvis and around the liver and spleen. 3. Stone in the left renal pelvis. Labs Labs: Laboratory Results - last 24 hr 10/21/24 10/22/24 10/22/24 16:53 05:37 07:44 WBC 5.0 RBC 2.82 L Hgb 8.5 L Hct 27.0 L MCV 95.7 MCH 30.1 MCHC 31.5 L RDW 17.1 H Plt Count 79 L MPV 11.6 H % Immature Plt Fraction 7.6 Sodium 136 L Potassium 3.4 Chloride 102 Carbon Dioxide 30 Anion Gap 4 BUN 6 L Creatinine 0.57 L Estim Creat Clear Calc Not Reportable Estimated GFR > 60 Glucose 173 H POC Capillary Glucose 237 H 159 H Calcium 9.1 Magnesium 1.6 Total Bilirubin 0.5 AST 23 ALT 18 Alkaline Phosphatase 62 Total Protein 4.9 L Albumin 2.6 L 10/22/24 11:21 WBC RBC Hgb Hct MCV MCH MCHC RDW Plt Count MPV % Immature Plt Fraction Sodium Potassium Chloride Carbon Dioxide Anion Gap BUN Creatinine Estim Creat Clear Calc Estimated GFR Glucose POC Capillary Glucose 179 H Calcium Magnesium Total Bilirubin AST ALT Alkaline Phosphatase Total Protein Albumin Quality VTE Prophylaxis VTE prophylaxis: mechanical ordered
--- NOTE | 2024-10-22 16:10 | P.CONUR_ITS ---
Assessment and Plan Assessment and plan (1) Left renal stone: Code(s): N20.0 - Calculus of kidney Status: Acute Assessment and Plan: * 84-year-old who has been [facility] nearly 2 weeks after presenting with anemia and a small bowel obstruction Urology Consult Note HPI Date Seen: 10/22/24 Requesting Physician: René Arora MD Primary Care Provider: Dain Rendon, MD Consult Narrative Narrative: Tyra Justice is a 84 year old, pleasant/talkative female who was admitted nearly 2 weeks ago with anemia in a small-bowel obstruction. She has since undergone exploratory laparotomy with lysis of adhesions. She continues to have this atypical left upper quadrant pressure/bloating and. A imaging demonstrates a 1.5 cm kidney stone in her left renal pelvis it may be causing mild left hydronephrosis. The stone has been present, unchanged and producing similar scant hydronephrosis since at least June 2024. She has had no severe colicky flank pain hematuria or upper urinary tract infections. Review of Systems 2 Review of Systems: All systems reviewed & are unremarkable except as noted in HPI and below Cardiovascular: Cardiovascular: Denies chest pain, Denies lightheadedness, Denies palpitations and Denies dyspnea Respiratory: Respiratory: Denies dyspnea Gastrointestinal: Gastrointestinal: Denies diarrhea, Denies nausea and Denies vomiting Genitourinary: Genitourinary: Denies hematuria and Denies dysuria Endocrine: Endocrine: Denies palpitations [facility] Past Medical History Medical History Diabetes COPD (chronic obstructive pulmonary disease) Dark stools Weight loss Acute anemia Family History Family History Sibling Family history of heart disease in male family member before age 55 Family history of alcoholism Colon cancer Father Family history of heart disease in male family member before age 55 Family history of lung cancer Heart attack Sibling Diabetes mellitus Mother Cancer of pancreas Other Hypertension Social History Social History Smoking packs per day: 4 Smoking cigarettes per day: 80.0 Years smoked: 60 Smoking pack-years: 240.00 Smoking status: Former smoker Tobacco type: cigarettes Alcohol intake: never Substance use: never Do You Feel Safe in your Home?: Yes Lack of Transportation: No Lack of Food: Never True Current Housing: I Have Housing Concerned About Future Housing: No Difficulty Paying Gas/Electric Bills: No Difficulty Paying for Meds: No Currently Unemployed: No Education: High School Diploma/GED Difficulty w/ Childcare or Family Care: No Spiritual care concerns: No Meds Home Medications and Allergies Home Medications ?Medication ?Instructions ?Recorded ?Confirmed ?Type aspirin 81 mg tablet 81 mg PO DAILY 03/23/21 10/10/24 History atorvastatin 40 mg tablet 40 mg PO HS 03/23/21 10/10/24 History calcium 500 mg tablet 1,500 mg PO DAILY 03/23/21 10/10/24 History famotidine 20 mg tablet 20 mg PO BID 03/23/21 10/10/24 History lisinopril 10 mg tablet 10 mg PO DAILY 03/23/21 10/10/24 History metformin 500 mg tablet 500 mg PO BID 03/23/21 10/10/24 History insulin glargine 100 unit/mL 14 unit subcut .HS 05/14/24 10/10/24 History subcutaneous solution (Lantus U-100 Insulin) metoprolol succinate 25 mg 25 mg PO DAILY 06/05/24 10/10/24 History tablet,extended release 24 hr furosemide 20 mg tablet 20 mg PO Q12H PRN edema 10/10/24 10/10/24 History hydrocodone 7.5 mg-acetaminophen 1 tablet PO Q8H 10/10/24 10/10/24 History 325 mg tablet sertraline 50 mg tablet 50 mg PO Q24H 10/10/24 10/10/24 History Allergies Allergy/AdvReac Type Severity Reaction Status Date / Time Iodinated Contrast Media Allergy Severe Stopped Verified 10/10/24 12:54 Breathing/ CARDIAC ARREST empagliflozin (From Allergy Mild unkown Verified 10/10/24 05:40 Jardiance) ioversol Allergy Unknown Unknown Verified 10/10/24 05:40 codeine AdvReac Intermediate NAUSEA/VOMI Verified 10/10/24 05:40 TING Contrast Media Allergy Severe CARDIA/RESP Uncoded 10/10/24 05:40 ARREST Vital Signs Vital Signs - 24 hr 10/21/24 20:00 10/21/24 20:57 10/21/24 21:15 Temperature Pulse Rate 72 85 Respiratory Rate Blood Pressure Pulse Oximetry 96 Oxygen Delivery Room Air 10/21/24 22:00 10/22/24 00:00 10/22/24 04:00 Temperature 99.4 F Pulse Rate 72 70 71 Respiratory Rate 20 Blood Pressure 122/56 L Pulse Oximetry 94 Oxygen Delivery 10/22/24 05:52 10/22/24 09:00 10/22/24 14:00 Temperature 99.4 F 97.9 F Pulse Rate 71 71 69 Respiratory Rate 20 18 Blood Pressure 135/57 L 140/67 Pulse Oximetry 99 96 Oxygen Delivery Exam 2 Const: General: no acute distress Orientation/consciousness: patient oriented x3 GI: Inspection: non-distended and incision (dry and keenan intact, no erythema, minimal bruising noted at bottom) GI Palp: Yes Soft to palpation, Yes Tenderness to palpation present (GI) (mostly in the LLQ, mild incisional tenderness, and mild RLQ tenderness), No Guarding due to palpation present (GI), No Hernia present and No Rebound tenderness present Auscultation: normal bowel sounds Rectal Exam: No abscess, hemorrhoids (inflamed left posterior hemorrhoid visible, no bleeding, no thrombosis) and tenderness (at hemorrhoid) : External Female Exam: normal external appearance, No erythema, No externally tender, No external swelling and other (no discharge noted, no external prolapse noted ) Results Labs 10/22/24 05:37 10/22/24 05:37 Labs: Short CBC 10/22/24 Range/Units 05:37 WBC 5.0 (4.5-10.0) K/mm3 Hgb 8.5 L (12.0-15.0) g/dL Hct 27.0 L (37.0-47.0) % Plt Count 79 L (150-375) k/mm3 [facility] 10/22/24 05:37 Sodium 136 L Potassium 3.4 Chloride 102 Carbon Dioxide 30 BUN 6 L Creatinine 0.57 L Glucose 173 H Calcium 9.1 Liver Function 10/22/24 Range/Units 05:37 Total Bilirubin 0.5 (0.2-1.3) mg/dL AST 23 (14-36) U/L ALT 18 (6-35) U/L Alkaline Phosphatase 62 (38-126) U/L Albumin 2.6 L (3.5-5.1) g/dL
[2024-10-22] MEDS: INSULIN ASPART (*BKC) 100 UNITS/ML SUB-Q (17:29)
[2024-10-22] MEDS: HYDROmorphone HCL INJ (*CRX) 2 MG/ML VIAL 1 MG IV PUSH (23:36)
[2024-10-22] MEDS: HYDROCORTISONE/PRAMOXINE 2.5% 30 GM CREAM 1 APPLIC RECTAL (23:37)
[2024-10-22] MEDS: ONDANSETRON INJ 4 MG/2 ML VIAL IV PUSH (23:38)
[2024-10-23] VITALS (11 sets, daily range): BP systolic 118–135; BP diastolic 45–59; PULSE 66–77; RESP 16–18; TEMP 36.4–36.8; O2SAT 96–97
[2024-10-23] MEDS: CENTRAL LINE FLUSH 10 ML IV PUSH ×3 (06:06→20:46)
[2024-10-23] MEDS: METOCLOPRAMIDE HCL 10 MG TABLET PO ×3 (06:06→17:20)
[2024-10-23 06:35] LABS: Hematocrit 30.9 % (37.0-47.0); Hemoglobin 9.7 g/dL (12.0-15.0); Immature Platelet Fraction Pct 7.2 % (0.9-11.2); Mean Corpuscular HGB Conc 31.4 g/dl (32-36); Mean Corpuscular Hemoglobin 29.9 pg (26-34); Mean Corpuscular Volume 95.4 fl (80-100); Platelet Count Result 83 k/mm3 (150-375); Red Blood Count 3.24 M/mm3 (4.2-5.4); White Blood Count 5.5 K/mm3 (4.5-10.0)
[2024-10-23 07:04] LABS: Alanine Aminotransferase 16 U/L (6-35); Albumin Level 2.9 g/dL (3.5-5.1); Alkaline Phosphatase 76 U/L (38-126); Anion Gap 5 mmol/L (4-12); Aspartate Amino Transferase 26 U/L (14-36); Bilirubin,Total 0.6 mg/dL (0.2-1.3); Blood Urea Nitrogen 5 mg/dL (7-17); Calcium 9.5 mg/dL (8.4-10.2); Carbon Dioxide 29 mmol/L (22-30); Chloride 103 mmol/L (98-107); Estimated Glomerular Filt Rate > 60; Glucose 133 mg/dL (65-110); Magnesium 1.6 mg/dL (1.6-2.3); Potassium 4.0 mmol/L (3.4-5.0); Sodium 137 mmol/L (137-145); Total Protein 5.7 g/dL (6.3-8.2)
--- NOTE | 2024-10-23 09:07 | PM.PNGS ---
Progress Note: A&P Assessment and Plan (1) SBO (small bowel obstruction): Code(s): K56.609 - Unspecified intestinal obstruction, unspecified as to partial versus complete obstruction Status: Acute Assessment and Plan: Resolved following exploratory laparotomy with adhesiolysis. Bowels are moving and she is tolerating solids. Incision healing well. Patient mentions mild right lower quadrant pain. Yesterday she was complaining left lower quadrant pain. CT abdomen pelvis was ordered yesterday, and demonstrated the stone in the left renal pelvis. No evidence of appendicitis, diverticulitis, or intestinal obstruction. Ascites seen in the pelvis and around the liver and spleen. Urology consulted and determined that the stone has been present for a while. They do not plan for any intervention. WBC count normal. Patient does admit that the pain is less than it was yesterday. Spoke with CC this morning who is working on placement to [facility] bed. Awaiting insurance approval, which is requiring peer to peer eval. made aware. (2) Hemorrhoids: Qualifiers: Hemorrhoid type: unspecified Qualified Code(s): K64.9 - Unspecified hemorrhoids Code(s): K64.9 - Unspecified hemorrhoids Status: Acute Assessment and Plan: Continue topical cream and Sitz baths for symptomatic relief. Plan I have discussed the patient's case and plan of care with Dr. Taylor. Subjective Subjective Date/Time Seen: 10/23/24 09:07 Post Op day: 8 Patient reports: no new complaints Interval history: No acute events overnight. Vital signs stable. No complaints, aside from feeling drowsy today. Patient states sometimes she feels right lower quadrant pain, but she feels that the pain is decreased from yesterday. Per note, patient complained of left lower quadrant pain yesterday. CT demonstrated a stone in the left renal pelvis. Urology was consulted and determined that the stone has been present and unchanged, producing similar scan hydronephrosis since at least June of 2024. no hematuria or upper urinary tract infections. No severe colicky flank pain. Tolerating diabetic diet without nausea or vomiting. Having regular bowel movements. Exam GI: Inspection: non-distended, incision (dry and keenan intact, no erythema, minimal bruising noted at bottom) and other (mildly distended) Auscultation: normal bowel sounds Other: Midline incisions with keenan intact, no erythema or drainage Objective Data Vital Signs Vital Signs: Vital Signs - 24 hr 10/22/24 12:00 10/22/24 14:00 10/22/24 16:00 Temperature 97.9 F Pulse Rate 69 69 73 Respiratory Rate 18 Blood Pressure 140/67 Pulse Oximetry 96 Oxygen Delivery 10/22/24 20:17 10/22/24 21:24 10/22/24 22:00 Temperature 97.7 F Pulse Rate 88 74 Respiratory Rate 18 Blood Pressure 139/59 L Pulse Oximetry 97 97 Oxygen Delivery Room Air 10/23/24 00:00 10/23/24 04:00 10/23/24 06:00 Temperature 98.2 F Pulse Rate 75 75 77 Respiratory Rate 18 Blood Pressure 133/59 L Pulse Oximetry 96 Oxygen Delivery Intake/Output Intake/Output: Intake & Output 10/20/24 10/21/24 10/22/24 10/23/24 23:59 23:59 23:59 23:59 Intake Total 810 720 676 Balance 810 720 676 Meds/Results Medications: Active Medications Generic Name Dose Route Start Last Admin Trade Name Freq PRN Reason Stop Dose Admin Acetaminophen 1,000 mg 10/19/24 11:18 Acetaminophen 500 Mg Tablet PO Q6H PRN Mild Pain (1-3) or Fever Hydrocodone Bitart/Acetaminophen 1 tab 10/19/24 11:18 10/22/24 20:17 Hydrocodone/Acetaminophen (*Crx) 5-325 Mg Tablet PO 1 tab Q4H PRN Administration Pain Rated 4-6 Aspirin 81 mg 10/10/24 15:10 10/12/24 14:26 Aspirin 81 Mg Enteric Tablet PO 11/10/24 15:09 Not Given DAILY TAMIR Atorvastatin Calcium 40 mg 10/10/24 21:00 10/11/24 21:22 Atorvastatin 40 Mg Tablet PO Not Given HS TAMIR Dextrose 12.5 gm 10/10/24 15:02 Dextrose 50% 25 Gm/50 Ml Syringe IV PUSH PRN PRN Hypoglycemia Protocol Famotidine 20 mg 10/12/24 21:00 10/22/24 20:17 Famotidine 20 Mg/2 Ml Vial IV PUSH 20 mg Q12HR TAMIR Administration Furosemide 20 mg 10/10/24 14:59 Furosemide 20 Mg Tablet PO Q12H PRN edema Glucagon 1 mg 10/10/24 15:02 Glucagon For Inj 1 Mg Vial IM PRN PRN Hypoglycemia Protocol Glucose 15 gm 10/10/24 15:02 Glucose Oral Gel 15 Gm Of Glucse In 37.5 Gm Tube PO PRN PRN Hypoglycemia Protocol Hydrocortisone/Pramoxine 1 applic 10/22/24 21:00 10/22/24 23:37 Hydrocortisone/Pramoxine 2.5% 30 Gm Cream RECTAL 10/26/24 12:00 1 applic Q12HR TAMIR Administration Hydromorphone HCl 1 mg 10/11/24 09:31 10/22/24 23:36 Hydromorphone Hcl Inj (*Crx) 2 Mg/Ml Vial IV PUSH 1 mg Q3H PRN Administration Pain Rated 7-10 Dextrose 1,000 mls @ 50 mls/hr 10/15/24 12:43 Dextrose 10% IV CONT .Q20H PRN if PN is interrupted Ibuprofen 800 mg in 200 mls @ 400 mls/hr 10/19/24 11:19 Caldolor 800 Mg/200 Ml IVPB Q8H PRN Pain Rated 4-6 Insulin Aspart 2 - 5 units 10/12/24 17:00 10/23/24 08:20 Insulin Aspart (*Bkc) 100 Units/Ml SUB-Q Not Given TIDWM [facility] Protocol Insulin Glargine 14 units 10/10/24 21:00 10/12/24 01:35 Insulin Glargine (*Bkc) 100 Units/Ml SUB-Q Not Given HS TAMIR Lidocaine 1 patch 10/16/24 09:00 10/22/24 08:59 Lidocaine 5% Patch TRANSDERM 1 patch DAILY TAMIR Administration Lisinopril 10 mg 10/10/24 15:10 10/12/24 14:26 Lisinopril 10 Mg Tablet PO Not Given DAILY TAMIR Magnesium Oxide 400 mg 10/23/24 09:00 Magnesium Oxide 400 Mg Tablet PO QAM TAMIR Metoclopramide HCl 10 mg 10/20/24 11:30 10/23/24 06:06 Metoclopramide Hcl 10 Mg Tablet PO 10 mg TIDAC TAMIR Administration Metoprolol Succinate 25 mg 10/10/24 15:10 10/12/24 14:26 Metoprolol Succinate Ext Rel 25 Mg Tabcr PO Not Given DAILY TAMIR Metoprolol Tartrate 2.5 mg 10/12/24 21:00 10/22/24 20:17 Metoprolol Tartrate Inj 5 Mg/5 Ml Vial IV PUSH 2.5 mg Q12HR TAMIR Administration Metoprolol Tartrate 5 mg 10/15/24 18:58 Metoprolol Tartrate Inj 5 Mg/5 Ml Vial IV PUSH Q4H PRN Hypertension Ondansetron HCl 4 mg 10/10/24 03:52 10/22/24 23:38 Ondansetron Inj 4 Mg/2 Ml Vial IV PUSH 4 mg Q4H PRN Administration Nausea Sertraline HCl 50 mg 10/10/24 15:10 10/12/24 14:27 Sertraline Hcl 50 Mg Tablet PO Not Given QAM TAMIR Sodium Chloride 10 ml 10/15/24 22:00 10/23/24 06:06 Central Line Flush IV PUSH 10 ml Q8HR TAMIR Administration Sodium Chloride 10 ml 10/15/24 14:41 Central Line Flush IV PUSH PRN PRN with TPN bag changes Sodium Chloride 20 ml 10/15/24 14:41 Central Line Flush IV PUSH PRN PRN after blood draws Radiology Results: ITS Impressions Upper GI and Small Bowel X-Ray 10/12/24 16:57 IMPRESSION: 1. Normal small bowel transit time to the cecum of 2 hours with no frankly dilated loops of small bowel to suggest obstruction. 2. Large amount of residual contrast within the stomach on the 4 hour delayed images suggestive of gastroparesis. 3. Unchanged 1.6 cm left renal stone. Abdomen X-Ray 10/18/24 06:18 Impression: NG tube in place, side port just below the diaphragm. Chest X-Ray 10/18/24 10:27 Impression: Support tubes in place, as above. Minimal right pleural effusion and probable minimal right basilar atelectatic change. Abdomen/Pelvis CT 10/22/24 12:47 IMPRESSION: 1. No evidence of appendicitis, diverticulitis or intestinal obstruction. 2. Ascites seen in the pelvis and around the liver and spleen. 3. Stone in the left renal pelvis. Labs Labs: Laboratory Results - last 24 hr 10/22/24 10/22/24 10/22/24 11:21 16:34 20:04 WBC RBC Hgb Hct MCV MCH MCHC RDW Plt Count MPV % Immature Plt Fraction Sodium Potassium Chloride Carbon Dioxide Anion Gap BUN Creatinine Estim Creat Clear Calc Estimated GFR Glucose POC Capillary Glucose 179 H 203 H 150 H Calcium Magnesium Total Bilirubin AST ALT Alkaline Phosphatase Total Protein Albumin 10/23/24 10/23/24 10/23/24 04:17 06:07 08:15 WBC 5.5 RBC 3.24 L Hgb 9.7 L Hct 30.9 L MCV 95.4 MCH 29.9 MCHC 31.4 L RDW 17.1 H Plt Count 83 L MPV 10.9 H % Immature Plt Fraction 7.2 Sodium 137 Potassium 4.0 Chloride 103 Carbon Dioxide 29 Anion Gap 5 BUN 5 L Creatinine 0.54 L Estim Creat Clear Calc Not Reportable Estimated GFR > 60 Glucose 133 H POC Capillary Glucose 110 H 149 H Calcium 9.5 Magnesium 1.6 Total Bilirubin 0.6 AST 26 ALT 16 Alkaline Phosphatase 76 Total Protein 5.7 L Albumin 2.9 L
[2024-10-23] MEDS: LIDOCAINE 5% PATCH 1 PATCH TRANSDERM (10:46)
[2024-10-23] MEDS: FAMOTIDINE 20 MG/2 ML VIAL IV PUSH ×2 (10:46→20:46)
[2024-10-23] MEDS: METOPROLOL TARTRATE INJ 5 MG/5 ML VIAL 2.5 MG IV PUSH ×2 (10:46→20:45)
[2024-10-23] MEDS: MAGNESIUM OXIDE 400 MG TABLET PO (10:47)
[2024-10-23] MEDS: HYDROCORTISONE/PRAMOXINE 2.5% 30 GM CREAM 1 APPLIC RECTAL ×2 (10:47→20:45)
--- NOTE | 2024-10-23 14:50 | P.PNIM_ITS ---
Progress Note: A&P Assessment and Plan (1) SBO (small bowel obstruction): Code(s): K56.609 - Unspecified intestinal obstruction, unspecified as to partial versus complete obstruction Status: Acute Assessment and Plan: Patient initially presented with nausea vomiting, concerning for coffee ground emesis Initial CT abdomen 10/10 showed partial small bowel obstruction and NG tube was placed and patient admitted for bowel rest and decompression with a consult to GI. Patient had overall improvement with placement of NG tube, emesis looked more like gastroenteritis. NG tube was then removed however after initiating food patient's nausea vomiting return with mid abdominal pain and further emesis. Repeat CT abdomen 10/11 showed redemonstration of multiple loops of prominent fluid-filled small bowel loops which extend into the pelvis for which small bowel obstruction is suspected. NG tube reinserted. Small bowel series showed SBO NG tube in place for decompression, attempted clamping trial unsuccessful. Increased bloating and left sided abdominal pain. Not passing flatus and no BM today. NPO with IV fluids, consider PICC line and TPN if surgery wishes to keep NPO Status post exploratory laparotomy with abdominal adhesiolysis 10/15/2024 Analgesics: dilaudid 1 mg IV q 3 PRN Antiemetics Monitor I&Os, vital signs, neuro status and patient is a fall risk Monitor serum electrolytes and CBC Bowels moving now Started on diet per General surgery. NG removed 10/18/2024 (2) Shortness of breath: Code(s): R06.02 - Shortness of breath Status: Acute Assessment and Plan: Patient endorsing slight shortness of breath that is exacerbated with deep b reathing. No associated cough. WBC WNL. Currently on 2L NC, baseline RA. Has history of COPD. Continue to wean oxygen supplementation as tolerated to maintain SpO2 >88% No documented hypoxia on chart review Abdomen/pelvis CT 10/11 showed small bilateral pleural effusions, with adjacent compressive atelectasis and the remainder of the bilateral lung bases are clear. Chest XR with opacities at the left lung base with associated elevation of the left hemidiaphragm favoring atelectasis over pneumonia Incentive spirometer (3) Anemia: Code(s): D64.9 - Anemia, unspecified Status: Acute Assessment and Plan: Patient with history of anemia hemoglobin stable at this time Iron panel and ferritin pending B12 and folate WNL Monitor Hgb no evidence of GIB Transfuse PRBC if Hgb <7.0 (4) Hypertension: Code(s): I10 - Essential (primary) hypertension Status: Acute Assessment and Plan: Chronic, continue to monitor - holding home lisinopril 10 mg daily and metoprolol 25 mg daily as patient is NPO - continue IV push metoprolol 2.5 mg BID - BP remains well controlled, continue to monitor (5) HLD (hyperlipidemia): Code(s): E78.5 - Hyperlipidemia, unspecified Status: Acute Assessment and Plan: * continue statin when able (6) Diabetes: Code(s): E11.9 - Type 2 diabetes mellitus without complications Status: Acute Assessment and Plan: - hypoglycemia protocol - POC blood glucose q6 as patient is NPO - home medication - metformin 500 mg BID (on hold) - correct regimen ordered - low dose TIDWM (7) Thrombocytopenia: Code(s): D69.6 - Thrombocytopenia, unspecified Status: Acute Assessment and Plan: Chronic patient has been follow and monitored outpatient by primary * trend and monitor for bleeding * Transfuse PLT if <15 * 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 patient had complained of left lower abdomen to surgery CT scan of abdomen showed a stone in the left renal pelvis is seen measuring 1.8 x 1.1 cm. Mild left hydronephrotic changes seen. patient was seen by urologist for further recommendation. will monitor and further recommendation to follow. Insurance has denied rehab, will discharge patient home tomorrow. Hypokalemia: Replace potassium Labs 10/19/2024 was likely erroneous with hemoglobin 6.7 immediate repeat was 10.4 as well as hypokalemia of 2.4 immediate repeat was 3.7 Subjective Date/time seen: 10/23/24 14:50 Interval history: patient stats had nausea and vomiting day before and suspect due to diabetes gastroparesis, patient is given Reglan which did help, patient is seen by surgery service, tolerating full liquid diet and advanced patient to diabetes diet, patient is participating in PT, was able to walk in the hallways, will benefit going to rehab as patient lives alone and will benefit with rehab before going home. patient had complained of left lower abdomen to surgery CT scan of abdomen showed a stone in the left renal pelvis is seen measuring 1.8 x 1.1 cm. Mild left hydronephrotic changes seen. patient was seen by urologist for further recommendation. will monitor and further recommendation to follow. Insurance has denied rehab, will discharge patient home tomorrow. Review of Systems Review of Systems: As reviewed above in HPI All systems reviewed & are unremarkable except as noted in HPI and below Exam Narrative: Patient is comfortable, NAD HEENT: eyes are clear and none icteric LUNGS:CTA HEART: RR S1S2 ABD: BS+, Soft and nontender Lower extremities: no edema SKIN: nonjaundiced Neuro: grossly intact. Objective Data Vital Signs Vital Signs: Vital Signs - 24 hr 10/22/24 16:00 10/22/24 20:17 10/22/24 21:24 Temperature Pulse Rate 73 88 Respiratory Rate Blood Pressure Pulse Oximetry 97 Oxygen Delivery Room Air 10/22/24 22:00 10/23/24 00:00 10/23/24 04:00 Temperature 36.5 C Pulse Rate 74 75 75 Respiratory Rate 18 Blood Pressure 139/59 L Pulse Oximetry 97 Oxygen Delivery 10/23/24 06:00 10/23/24 10:46 Temperature 36.8 C Pulse Rate 77 76 Respiratory Rate 18 Blood Pressure 133/59 L Pulse Oximetry 96 Oxygen Delivery Intake/Output Intake/Output: Intake & Output 10/20/24 10/21/24 10/22/24 10/23/24 23:59 23:59 23:59 23:59 Intake Total 810 720 676 120 Balance 810 720 676 120 Meds/Results Medications: Active Medications Generic Name Dose Route Start Last Admin Trade Name Freq PRN Reason Stop Dose Admin Acetaminophen 1,000 mg 10/19/24 11:18 Acetaminophen 500 Mg Tablet PO Q6H PRN Mild Pain (1-3) or Fever Hydrocodone Bitart/Acetaminophen 1 tab 10/19/24 11:18 10/22/24 20:17 Hydrocodone/Acetaminophen (*Crx) 5-325 Mg Tablet PO 1 tab Q4H PRN Administration Pain Rated 4-6 Aspirin 81 mg 10/10/24 15:10 10/12/24 14:26 Aspirin 81 Mg Enteric Tablet PO 11/10/24 15:09 Not Given DAILY TAMIR Atorvastatin Calcium 40 mg 10/10/24 21:00 10/11/24 21:22 Atorvastatin 40 Mg Tablet PO Not Given HS TAMIR Dextrose 12.5 gm 10/10/24 15:02 Dextrose 50% 25 Gm/50 Ml Syringe IV PUSH PRN PRN Hypoglycemia Protocol Famotidine 20 mg 10/12/24 21:00 10/23/24 10:46 Famotidine 20 Mg/2 Ml Vial IV PUSH 20 mg Q12HR TAMIR Administration Furosemide 20 mg 10/10/24 14:59 Furosemide 20 Mg Tablet PO Q12H PRN edema Glucagon 1 mg 10/10/24 15:02 Glucagon For Inj 1 Mg Vial IM PRN PRN Hypoglycemia Protocol Glucose 15 gm 10/10/24 15:02 Glucose Oral Gel 15 Gm Of Glucse In 37.5 Gm Tube PO PRN PRN Hypoglycemia Protocol Hydrocortisone/Pramoxine 1 applic 10/22/24 21:00 10/23/24 10:47 Hydrocortisone/Pramoxine 2.5% 30 Gm Cream RECTAL 10/26/24 12:00 1 applic Q12HR TAMIR Administration Hydromorphone HCl 1 mg 10/11/24 09:31 10/22/24 23:36 Hydromorphone Hcl Inj (*Crx) 2 Mg/Ml Vial IV PUSH 1 mg Q3H PRN Administration Pain Rated 7-10 Dextrose 1,000 mls @ 50 mls/hr 10/15/24 12:43 Dextrose 10% IV CONT .Q20H PRN if PN is interrupted Ibuprofen 800 mg in 200 mls @ 400 mls/hr 10/19/24 11:19 Caldolor 800 Mg/200 Ml IVPB Q8H PRN Pain Rated 4-6 Insulin Aspart 2 - 5 units 10/12/24 17:00 10/23/24 11:43 Insulin Aspart (*Bkc) 100 Units/Ml SUB-Q Not Given TIDWM [facility] Protocol Insulin Glargine 14 units 10/10/24 21:00 10/12/24 01:35 Insulin Glargine (*Bkc) 100 Units/Ml SUB-Q Not Given HS TAMIR Lidocaine 1 patch 10/16/24 09:00 10/23/24 10:46 Lidocaine 5% Patch TRANSDERM 1 patch DAILY TAMIR Administration Lisinopril 10 mg 10/10/24 15:10 10/12/24 14:26 Lisinopril 10 Mg Tablet PO Not Given DAILY TAMIR Magnesium Oxide 400 mg 10/23/24 09:00 10/23/24 10:47 Magnesium Oxide 400 Mg Tablet PO 400 mg QAM TAMIR Administration Metoclopramide HCl 10 mg 10/20/24 11:30 10/23/24 11:44 Metoclopramide Hcl 10 Mg Tablet PO 10 mg TIDAC TAMIR Administration Metoprolol Succinate 25 mg 10/10/24 15:10 10/12/24 14:26 Metoprolol Succinate Ext Rel 25 Mg Tabcr PO Not Given DAILY TAMIR Metoprolol Tartrate 2.5 mg 10/12/24 21:00 10/23/24 10:46 Metoprolol Tartrate Inj 5 Mg/5 Ml Vial IV PUSH 2.5 mg Q12HR TAMIR Administration Metoprolol Tartrate 5 mg 10/15/24 18:58 Metoprolol Tartrate Inj 5 Mg/5 Ml Vial IV PUSH Q4H PRN Hypertension Ondansetron HCl 4 mg 10/10/24 03:52 10/22/24 23:38 Ondansetron Inj 4 Mg/2 Ml Vial IV PUSH 4 mg Q4H PRN Administration Nausea Sertraline HCl 50 mg 10/10/24 15:10 10/12/24 14:27 Sertraline Hcl 50 Mg Tablet PO Not Given QAM TAMIR Sodium Chloride 10 ml 10/15/24 22:00 10/23/24 06:06 Central Line Flush IV PUSH 10 ml Q8HR TAMIR Administration Sodium Chloride 10 ml 10/15/24 14:41 Central Line Flush IV PUSH PRN PRN with TPN bag changes Sodium Chloride 20 ml 10/15/24 14:41 Central Line Flush IV PUSH PRN PRN after blood draws Radiology Results: ITS Impressions Upper GI and Small Bowel X-Ray 10/12/24 16:57 IMPRESSION: 1. Normal small bowel transit time to the cecum of 2 hours with no frankly dilated loops of small bowel to suggest obstruction. 2. Large amount of residual contrast within the stomach on the 4 hour delayed images suggestive of gastroparesis. 3. Unchanged 1.6 cm left renal stone. Abdomen X-Ray 10/18/24 06:18 Impression: NG tube in place, side port just below the diaphragm. Chest X-Ray 10/18/24 10:27 Impression: Support tubes in place, as above. Minimal right pleural effusion and probable minimal right basilar atelectatic change. Abdomen/Pelvis CT 10/22/24 12:47 IMPRESSION: 1. No evidence of appendicitis, diverticulitis or intestinal obstruction. 2. Ascites seen in the pelvis and around the liver and spleen. 3. Stone in the left renal pelvis. Labs Labs: Laboratory Results - last 24 hr 10/22/24 10/22/24 10/23/24 16:34 20:04 04:17 WBC RBC Hgb Hct MCV MCH MCHC RDW Plt Count MPV % Immature Plt Fraction Sodium Potassium Chloride Carbon Dioxide Anion Gap BUN Creatinine Estim Creat Clear Calc Estimated GFR Glucose POC Capillary Glucose 203 H 150 H 110 H Calcium Magnesium Total Bilirubin AST ALT Alkaline Phosphatase Total Protein Albumin 10/23/24 10/23/24 10/23/24 06:07 08:15 11:25 WBC 5.5 RBC 3.24 L Hgb 9.7 L Hct 30.9 L MCV 95.4 MCH 29.9 MCHC 31.4 L RDW 17.1 H Plt Count 83 L MPV 10.9 H % Immature Plt Fraction 7.2 Sodium 137 Potassium 4.0 Chloride 103 Carbon Dioxide 29 Anion Gap 5 BUN 5 L Creatinine 0.54 L Estim Creat Clear Calc Not Reportable Estimated GFR > 60 Glucose 133 H POC Capillary Glucose 149 H 143 H Calcium 9.5 Magnesium 1.6 Total Bilirubin 0.6 AST 26 ALT 16 Alkaline Phosphatase 76 Total Protein 5.7 L Albumin 2.9 L Quality VTE Prophylaxis VTE prophylaxis: mechanical ordered
[2024-10-24] VITALS (7 sets, daily range): BP systolic 131–137; BP diastolic 55; PULSE 63–75; RESP 18; TEMP 36.4–36.7; O2SAT 98
[2024-10-24 00:57] LABS: Add Urine Microscopic? YES; Appearance Urine Clear (Clear); Glucose Urine UA Negative (Negative); Leukocyte Esterase Ur Trace LEU/UL (Negative); Nitrate Urine Negative (Negative); Non Pathogenic Casts 0-2; Specific Grav Ur 1.005 (1.001-1.035)
[2024-10-24] MEDS: HYDROcodone/acetaminophen (*CRX) 5-325 MG TABLET 1 TAB PO (05:22)
[2024-10-24] MEDS: METOCLOPRAMIDE HCL 10 MG TABLET PO (05:22)
[2024-10-24] MEDS: CENTRAL LINE FLUSH 10 ML IV PUSH (05:23)
[2024-10-24] MEDS: FAMOTIDINE 20 MG/2 ML VIAL IV PUSH (09:51)
[2024-10-24] MEDS: MAGNESIUM OXIDE 400 MG TABLET PO (09:52)
[2024-10-24] MEDS: METOPROLOL TARTRATE INJ 5 MG/5 ML VIAL 2.5 MG IV PUSH (09:52)
[2024-10-24] MEDS: LIDOCAINE 5% PATCH 1 PATCH TRANSDERM (09:52)
--- NOTE | 2024-10-24 11:01 | P.DS_ITS ---
DS: Admitting Diagnosis Discharge Date 10/24/24 Admitting Diagnosis Coffee Ground Emesis/LUQ pain DS: Discharge Diagnosis Discharge Diagnosis (1) SBO (small bowel obstruction): Code(s): K56.609 - Unspecified intestinal obstruction, unspecified as to partial versus complete obstruction Status: Acute Assessment and Plan: Patient initially presented with nausea vomiting, concerning for coffee ground emesis Initial CT abdomen 10/10 showed partial small bowel obstruction and NG tube was p laced and patient admitted for bowel rest and decompression with a consult to GI. Patient had overall improvement with placement of NG tube, emesis looked more like gastroenteritis. NG tube was then removed however after initiating food patient's nausea vomiting return with mid abdominal pain and further emesis. Repeat CT abdomen 10/11 showed redemonstration of multiple loops of prominent fluid-filled small bowel loops which extend into the pelvis for which small bowel obstruction is suspected. NG tube reinserted. Small bowel series showed SBO NG tube in place for decompression, attempted clamping trial unsuccessful. Increased bloating and left sided abdominal pain. Not passing flatus and no BM today. NPO with IV fluids, consider PICC line and TPN if surgery wishes to keep NPO Status post exploratory laparotomy with abdominal adhesiolysis 10/15/2024 Analgesics: dilaudid 1 mg IV q 3 PRN Antiemetics Monitor I&Os, vital signs, neuro status and patient is a fall risk Monitor serum electrolytes and CBC Bowels moving now Started on diet per General surgery. NG removed 10/18/2024 (2) Shortness of breath: Code(s): R06.02 - Shortness of breath Status: Acute Assessment and Plan: Patient endorsing slight shortness of breath that is exacerbated with deep breathing. No associated cough. WBC WNL. Currently on 2L NC, baseline RA. Has history of COPD. Continue to wean oxygen supplementation as tolerated to maintain SpO2 >88% No documented hypoxia on chart review Abdomen/pelvis CT 10/11 showed small bilateral pleural effusions, with adjacent compressive atelectasis and the remainder of the bilateral lung bases are clear. Chest XR with opacities at the left lung base with associated elevation of the left hemidiaphragm favoring atelectasis over pneumonia Incentive spirometer (3) Anemia: Code(s): D64.9 - Anemia, unspecified Status: Acute Assessment and Plan: Patient with history of anemia hemoglobin stable at this time Iron panel and ferritin pending B12 and folate WNL Monitor Hgb no evidence of GIB Transfuse PRBC if Hgb <7.0 (4) Hypertension: Code(s): I10 - Essential (primary) hypertension Status: Acute Assessment and Plan: Chronic, continue to monitor - holding home lisinopril 10 mg daily and metoprolol 25 mg daily as patient is NPO - continue IV push metoprolol 2.5 mg BID - BP remains well controlled, continue to monitor (5) HLD (hyperlipidemia): Code(s): E78.5 - Hyperlipidemia, unspecified Status: Acute Assessment and Plan: * continue statin when able (6) Diabetes: Code(s): E11.9 - Type 2 diabetes mellitus without complications Status: Acute Assessment and Plan: - hypoglycemia protocol - POC blood glucose q6 as patient is NPO - home medication - metformin 500 mg BID (on hold) - correct regimen ordered - low dose TIDWM (7) Thrombocytopenia: Code(s): D69.6 - Thrombocytopenia, unspecified Status: Acute Assessment and Plan: Chronic patient has been follow and monitored outpatient by primary * trend and monitor for bleeding * Transfuse PLT if <15 * 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 patient had complained of left lower abdomen to surgery CT scan of abdomen showed a stone in the left renal pelvis is seen measuring 1.8 x 1.1 cm. Mild left hydronephrotic changes seen. patient was seen by urologist for further recommendation. will monitor and further recommendation to follow. Insurance has denied rehab, will discharge patient home tomorrow. Hypokalemia: Replace potassium Labs 10/19/2024 was likely erroneous with hemoglobin 6.7 immediate repeat was 10.4 as well as hypokalemia of 2.4 immediate repeat was 3.7 DS: Summary Hospital Course Hospital Course: Patient initially presented with nausea vomiting, concerning for coffee ground emesis Initial CT abdomen 10/10 showed partial small bowel obstruction and NG tube was placed and patient admitted for bowel rest and decompression with a consult to GI. Patient had overall improvement with placement of NG tube, emesis looked more like gastroenteritis. NG tube was then removed however after initiating food patient's nausea vomiting return with mid abdominal pain and further emesis. Repeat CT abdomen 10/11 showed redemonstration of multiple loops of prominent fluid-filled small bowel loops which extend into the pelvis for which small bowel obstruction is suspected. NG tube reinserted. patient stats had nausea and vomiting day before and suspect due to diabetes gastroparesis, patient is given Reglan which did help, patient is seen by surgery service, tolerating full liquid diet and advanced patient to diabetes diet, patient is participating in PT, was able to walk in the hallways, will benefit going to rehab as patient lives alone and will benefit with rehab before going home. patient had complained of left lower abdomen to surgery CT scan of abdomen showed a stone in the left renal pelvis is seen measuring 1.8 x 1.1 cm. Mild left hydronephrotic changes seen. patient was seen by urologist for further recommendation. will monitor and further recommendation to follow. Insurance has denied rehab, will discharge patient home tomorrow. Today patient is clinically stable, able to ambulate with PT, will discharge home today, her daughter will take her home. Time Spent with Patient Time attestation: Total time spent providing and/or coordinating discharge services: Exam Narrative: Patient is comfortable, NAD HEENT: eyes are clear and none icteric LUNGS:CTA HEART: RR S1S2 ABD: BS+, Soft and nontender Lower extremities: no edema SKIN: nonjaundiced Neuro: grossly intact. DS: Data Data Completed and Pending Labs on day of discharge: Labs from last 24 hours 10/24/24 10/24/24 10/23/24 08:00 00:40 20:36 POC Capillary Glucose 119 H 162 H Urine Color Yellow Urine Appearance Clear Urine pH 8.0 Ur Specific [place] 1.005 Urine Protein Negative Urine Glucose (UA) Negative Urine Ketones Negative Ur Blood (Man) Negative Urine Nitrate Negative Urine Bilirubin Negative Urine Urobilinogen 0.2 Ur Leukocyte Esterase Trace H Urine RBC 0-2 Urine WBC 0-5 Ur Squamous Epith Cells None seen Urine Bacteria None seen Urine Casts 0-2 10/23/24 10/23/24 16:46 11:25 POC Capillary Glucose 158 H 143 H Urine Color Urine Appearance Urine pH Ur Specific [place] Urine Protein Urine Glucose (UA) Urine Ketones Ur Blood (Man) Urine Nitrate Urine Bilirubin Urine Urobilinogen Ur Leukocyte Esterase Urine RBC Urine WBC Ur Squamous Epith Cells Urine Bacteria Urine Casts Discharge Plan Discharge Attending physician on discharge: Fran Arora Consulting providers: Marquita Welch; Ligia Albrecht; Mike Mitchell; Kaleb Zhao; Minesh Leyva; Mercedes Blas; Fariba Leslie; Juan R Malone; Juan Miguel Mujica; Chriss Leija; Abeba Taylor; Sahara Murillo; Andre Villa; Say Duarte; Patrice Lynch; Monse Turcios,Lexa Hall Discharging Clinician: Navin Romo Patient Disposition: Home with Home Health Service Activity: as tolerated Diet: heart healthy Discharge Instructions: patient to follow discharge care instruction from surgeon and follow up as scheduled, patient to follow up with her primary care provider as soon as possible. patient is instructed if any symptoms redevelop to go to nearest ER. Per Care Coordination: [facility] will contact you prior to their first visit. [facility] will follow for RN and PT/OT eval and treat. [facility] will be able to start services once Dr. Dain Rendon is agreeable to sign and follow for Home Health services. [facility] at [phone]. Nursing please fax discharge paperwork to [phone]. Please [address] Rendon's office and complete a follow up appointment upon discharge from the hospital. Patient Instructions: Antibiotic Form Patient Language: Polish Stand Alone Forms: General Discharge Information Follow-up/Referrals: Justice,Dain Stanford MD [Primary Care Provider] - Kaleb Zhao MD [Physician] - Mike Mitchell MD [Physician] - ( Patient will follow-up see Dr. Mitchell in the office in 2 weeks. Call [phone] for an appt. ) Discharge Medications: New lidocaine [Lidoderm] 5 % Adhesive Patch,Medicated 1 patch transdermal DAILY Qty: 15 0RF magnesium oxide 400 mg (241.3 mg magnesium) Tablet 400 mg PO QAM Qty: 30 0RF Continued insulin glargine [Lantus U-100 Insulin] 100 unit/mL solution 14 unit subcut .HS atorvastatin 40 mg Tablet 40 mg PO HS metformin 500 mg Tablet 500 mg PO BID calcium 500 mg Tablet 1,500 mg PO DAILY famotidine 20 mg Tablet 20 mg PO BID lisinopril 10 mg Tablet 10 mg PO DAILY aspirin 81 mg Tablet 81 mg PO DAILY furosemide 20 mg tablet 20 mg PO Q12H PRN (Reason: edema) sertraline 50 mg tablet 50 mg PO Q24H hydrocodone-acetaminophen 7.5-325 mg tablet 1 tablet PO Q8H Qty: 15 0RF metoprolol succinate 25 mg tablet extended release 24 hr 25 mg PO DAILY No Action nystatin 100,000 unit/gram powder 1 applic topical DAILY Qty: 30 1RF Date of admission: 10/11/24 13:26 Primary Care Provider: Justice,Dain Stanford Admitting Provider: Fran Arora Attending physician on admission: Navin Romo Condition: Stable
--- NOTE | 2024-10-24 11:32 | PC.NURSE ---
This RN had to administer medications without scanning pt bracelets and medication barcodes due to a malfunction with computer scanner. The scanner would not scan patient bracelets or medications after battery changed.
== END 2024-10-24 16:19 | disposition home health service (06) | DRG 337 ==
LOC: ANHED 03:59 → ANH3MEDSUR 07:41
PROVIDERS: Internal Medicine; Nurse Practitioner Family; Student in an Organized Health Care Education/Training Program; Surgery; Admitting Provider Internal Medicine; Emergency Provider Student in an Organized Health Care Education/Training Program; PCP Internal Medicine; Visit Provider Family Medicine
PROC: 0DNA0ZZ Release Jejunum, Open Approach (ICD-10-PCS; CPT 49000; principal; 2024-10-15 15:30)
DX: K56.51 Intestinal adhesions [bands], with partial obstruction (principal); J44.9 Chronic obstructive pulmonary disease, unspecified; D64.9 Anemia, unspecified; I10 Essential (primary) hypertension; E78.5 Hyperlipidemia, unspecified; D69.6 Thrombocytopenia, unspecified; E87.6 Hypokalemia; E11.43 Type 2 diabetes mellitus with diabetic autonomic (poly)neuropathy; K31.84 Gastroparesis; K64.4 Residual hemorrhoidal skin tags; N20.0 Calculus of kidney; R06.02 Shortness of breath; Z79.84 Long term (current) use of oral hypoglycemic drugs; Z87.891 Personal history of nicotine dependence
CPT/HCPCS: 36415; 36569; 71045; 74018; 74019; 74176; 74250; 80053; 81001; 82607; 82728; 82746; 82948; 83540; 83550; 83605; 83735; 84100; 84443; 84466; 84478; 85014; 85018; 85025; 85027; 85055; 85610; 85730; 86850; 86900; 86901; 96361; 96372; 96374; 96375; 96376; 97110; 97116; 97161; 97166; 97530; 97535; 99285; A9270; C1751; G0378; J0330; J0616; J1100; J1171; J1741; J1815; J1956; J2003; J2004; J2270; J2359; J2405; J2470; J2550; J2704; J2765; J3010; J3360; J3480; J7030; J7040; J7120

== ENCOUNTER 2024-11-30 10:37 | Emergency (ER) | payer MEDICARE, SELFPAY ==
--- OUTSIDE RECORDS SUMMARY | 2009-04-20 04:00 | XMS_ITS | Continuity of Care Document ---
Author Organization [facility] Address [address] [place] [address] [facility] [address] [place] [address] Phone Care Team Providers Care Tax Clerk Name Role Phone Rian Santizo Unavailable Unavailable Procedures Procedure Date Eye Exam, New Patient Refraction Advance Directives Directive Yes / No Effective Date File Name No Information Encounters Encounter Description Practice Location Reason(s) For Visit Diagnoses Date Provider Providers Copied on Encounter [facility], [address] [place], [place], [id number], [place] tel:[phone] [facility] No Information [address] [facility] [place] [address], [place], [address], [place]. tel:[phone] Family History Family Member Type Diagnosis Age At Onset No Information Payers Payer name Insurance type Covered libertarian ID Authoriza tion(s) No Information Social History Type Description Quantity Date Captured Comments Sex Female Smoking Status No Information Chief Complaint And Reason For Visit No Information Reason For Referral Reason For Referral No Information History Of Present Illness Encounter Date Complaint History Of Prese nt Illness No Information Functional Status Date Functional Assessmen t No Information Instructions Date Instruction Additional Infor mation No Information Assessments Type Assessment Date No Information Patient Care Teams Name Effective Dates (start - stop) Status Members No Information
[2024-11-30] VITALS (15 sets, daily range): BP systolic 136–158; BP diastolic 62–78; PULSE 55–62; RESP 16–46; TEMP 36.9; O2SAT 95–100
--- NOTE | ~2024-11-30 | CT_ITS ---
EXAMINATION: CT brain wo con DATE: 11/30/2024 12:49 INDICATION: Status post fall TECHNIQUE: Computed tomography (CT) of the abdomen and pelvis was performed without intravenous contrast. The dose-length product was 681.00 mGy-cm. Automated exposure control and iterative reconstruction technique were employed. COMPARISON: None. FINDINGS: There is intracranial atherosclerosis. Mild generalized atrophy. There are scattered mild periventricular and subcortical white matter changes, most likely related to small vessel ischemic disease (microangiopathy). No ventriculomegaly or midline shift. Basilar cisterns are patent. No acute i ntracranial hemorrhage, infarction, mass or mass effect. No ventriculomegaly or midline shift. Basilar cisterns are patent. Paranasal sinuses and mastoids are pneumatized. No depressed skull fractures. There is cavum septum lucidum. IMPRESSION: 1. No acute intracranial abnormality. Reviewed, dictated and finalized at location O.
--- NOTE | ~2024-11-30 | XR_ITS ---
XR hand LT min 3V 11/30/2024 12:58 Indication: First digit pain Procedure: 3 views left hand Comparison: No prior studies for comparison. 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 Osteopenia. No acute fracture or traumatic malalignment. No erosive changes. 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 Reviewed, dictated and finalized at location O. 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
--- OUTSIDE RECORDS SUMMARY | 2024-11-30 11:28 | XMS_ITS | Clinical Summary ---
Author Organization [facility] Address [address] [place] [id number] Care Team Providers Care Regulatory Administrator Name Role Phone Dain Rendon MD Primary [...] TABLET(40 MG) BY MOUTH DAILY 90 tablet 11/17/19 25 Active atorvastatin (LIPITOR) 40 mg tablet TAKE 1 TABLET(40 MG) BY MOUTH DAILY 90 tablet 08/06/19 25 025 Discontinued Active Problems Problem Noted Date Diagnosed Date Vaginal atrophy 03/19/2016 Vaginal bleeding 03/19/2016 Type 2 diabetes mellitus 08/22/2013 Overview (07/12/2016): DMII WO CMP UNCNTRLD Pure hypercholesterolemia 08/22/2013 Overview (07/12/2016): PURE HYPERCHOLESTEROLEM Surgical History Surgery Date Site/Laterality Comments CHOLECYSTECTOMY 1982 Cholecystectomy TONSILLECTOMY Tonsillectomy HIP ARTHROPLASTY Hip replacement SD APPENDECTOMY Appendectomy - (Added by TW Conv) SD TONSILLECTOMY PRIMARY/SEC ONDARY <AGE 12 Tonsillectomy - (Added by TW Conv) GALLBLADDER SURGERY Gallbladder Surgery - (Added by TW Conv) HIP SURGERY Hip Surgery - (Added by TW Conv) SD HEMORRHOIDECTOMY INTERNAL RUBBER BAND LIGATIONS Hemorrhoidectomy - (Added by TW Conv) ROTATOR CUFF REPAIR Rotator Cuff Repair - (Added by TW Conv) SD BIOPSY BREAST OPEN INCISIONAL Incisional Breast Biopsy - (Added by TW Conv) SD LAPS ABD PRTM&OMENTUM DX W/WO SPEC BR/WA SPX Laparoscopy (Diagnostic) - (Added by TW Conv) SD CYSTO W/INSERT URETERAL STENT Cystoscopy With Insertion Of Ureteral Stent - (Added by TW Conv) SD SLING OPERATION STRESS INCONTINENCE Vaginal Sling Operation For Stress Incontinence - (Added by TW Conv) SD CMBND ANTERPOST COLPORRAP HY W/CYSTO W/NTRCL RPR Colporrhaphy Combined A-P And Enterocele Repair - (Added by TW Conv) SD COLPOCLEISIS LE FORT TYPE Vaginal Colpocleisis ([place] Procedure) - (Added by TW Conv) SD VAGINECTOMY COMPLETE ENRIQUE JINNY VAGINAL WALL Vaginectomy Complete - (Added by TW Conv) Medical History Medical History Date Comments Hypertension Hypertension Type 2 diabetes mellitus Diabete s type 2 Personal history of other di [...] bilateral COPD (chronic obstructive pu lmonary disease) Arthritis Family History Medical History Relation Name Comments Diabetes type II Brother 1 Diabetes -T ype 2; Diabetes Brother 2 Family history of diabetes mellitus - (Added by TW Conv) Alcohol abuse Brother 3 Family history of alcoholism - (Added by TW Conv) Coronary artery disease Father Janet samuelsy artery disease; Heart attack Father Family history [...] on file 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 Gender Identity Not on file Sexual Orientation Not on file Obstetrics History Last Filed Vital Signs Vital Sign Reading Time Taken Comments Blood Pressure 136/60 03/18/2024 2:12 PM DOCUMENT CONTROL SUPERVISOR Pulse 75 03/18/2024 2:12 PM DOCUMENT CONTROL SUPERVISOR Temperature - - Respiratory Rate - - Oxygen Saturation 97% 03/18/2024 2:12 PM DOCUMENT CONTROL SUPERVISOR Inhaled Oxygen Concentration - - Weight 68.9 kg (152 lb) 03/18/2024 2:12 PM DOCUMENT CONTROL SUPERVISOR Height 149.9 cm (4' 11) 03/18/2024 2:12 PM DOCUMENT CONTROL SUPERVISOR Body Mass Index 30.7 03/18/2024 2:12 PM DOCUMENT CONTROL SUPERVISOR Plan of Treatment Health Maintenance Due Date [...] Lipid Panel 11/08/2016 11/09/2015 Influenza Vaccine (#1) 2024 9, 03/01/2017, 12/28/2015, Additional history exists Pneumococcal [...] Most Recently Relevant to Health Maintenance Insurance [facility] MEDICARE ADVANTAGE [facility] MEDIC[facility] ADVANTAGE Care Teams Regulatory Administrator Relationship Specialty Start Date End Date Dain Rendon MD PCP - General 01/02/10
--- NOTE | 2024-11-30 13:02 | ED.GENADULT ---
HPI - General Adult General Chief complaint: Fall Stated complaint: GLF at 0800 Time Seen by Provider: 11/30/24 12:02 History of Present Illness HPI narrative: Patient is an 84-year-old female who presents ER after having a fall at home. She was in the shower when she got lightheaded and collapsed to the ground. She denies hitting her head. She did hit the lower part of her left back and has pain with twisting. She also suffered injury to her left thumb at the DIP. There is bruising and swelling. Patient has had poor oral intake since having a abdominal surgery last month. She has been on after she has been on appetite stimulants without improvement. No fevers or chills. Related Data Home Medications ?Medication ?Instructions ?Recorded ?Confirmed ?Last Taken ?Type aspirin 81 mg tablet 81 mg PO DAILY 03/23/21 11/14/24 06/04/24 History atorvastatin 40 mg tablet 40 mg PO HS 03/23/21 11/14/24 06/04/24 History calcium 500 mg tablet 1,500 mg PO DAILY 03/23/21 11/14/24 04/10/21 History famotidine 20 mg tablet 20 mg PO BID 03/23/21 11/14/24 06/04/24 History lisinopril 10 mg tablet 10 mg PO DAILY 03/23/21 11/14/24 06/04/24 History metformin 500 mg tablet 500 mg PO BID 03/23/21 11/14/24 06/04/24 History insulin glargine 100 unit/mL 14 unit subcut .HS 05/14/24 11/14/24 06/04/24 History subcutaneous solution (Lantus U-100 Insulin) metoprolol succinate 25 mg 25 mg PO DAILY 06/05/24 11/14/24 Unknown History tablet,extended release 24 hr furosemide 20 mg tablet 20 mg PO Q12H PRN edema 10/10/24 11/14/24 Unknown History sertraline 50 mg tablet 50 mg PO Q24H 10/10/24 11/14/24 Unknown History Allergies Allergy/AdvReac Type Severity Reaction Status Date / Time Iodinated Contrast Media Allergy Severe Stopped Verified 11/10/24 10:01 Breathing/ CARDIAC ARREST empagliflozin (From Allergy Mild unkown Verified 11/10/24 10:01 Jardiance) ioversol Allergy Unknown Unknown Verified 11/10/24 10:01 codeine AdvReac Intermediate NAUSEA/VOMI Verified 11/10/24 10:01 TING Contrast Media Allergy Severe CARDIA/RESP Uncoded 11/10/24 10:01 ARREST Review of Systems Review of Systems: All systems reviewed & are unremarkable except as noted in HPI and below Constitutional: Constitutional: Reports no additional constitutional complaints ENT: Reports system reviewed and no additional complaints, except as documented Cardiovascular: Cardiovascular: Reports no additional cardiovascular complaints Respiratory: Respiratory: Reports no additional respiratory complaints Musculoskeletal: Musculoskeletal: Reports no additional musculoskeletal complaints [facility] Past Medical History Medical History (Updated 11/30/24 @ 18:34 by Tobi Green MD) Diabetes COPD (chronic obstructive pulmonary disease) Dark stools Weight loss Acute anemia Surgical History Surgical History (Updated 11/10/24 @ 10:03 by Daniela Sheridan CMA) Hx of exploratory laparotomy 10/15/2024 Exploratory laparotomy with abdominal adhesiolysis Family History Family History Sibling Family history of heart disease in male family member before age 55 Family history of alcoholism Colon cancer Father Family history of heart disease in male family member before age 55 Family history of lung cancer Heart attack Sibling Diabetes mellitus Mother Cancer of pancreas Other Hypertension Social History Social History Smoking packs per day: 4 Smoking cigarettes per day: 80.0 Years smoked: 60 Smoking pack-years: 240.00 Smoking status: Former smoker Tobacco type: cigarettes Alcohol intake: never Substance use: never Do You Feel Safe in your Home?: Yes Lack of Transportation: No Lack of Food: Never True Current Housing: I Have Housing Concerned About Future Housing: No Difficulty Paying Gas/Electric Bills: No Difficulty Paying for Meds: No Currently Unemployed: No Education: High School Diploma/GED Difficulty w/ Childcare or Family Care: No Spiritual care concerns: No Exam Narrative: GENERAL: Chronically ill-appearing, and in no acute distress. HEAD: Normocephalic, atraumatic. ENT: Mucous membranes moist. CHEST: Clear to auscultation. No respiratory distress. HEART: Regular rate and rhythm. Normal peripheral pulses. ABDOMEN: Soft, nontender, nondistended. EXTREMITIES: Normal range of motion. No edema. Bruising and tenderness to the left thumb at the DIP. SKIN: Warm, dry, no rash. NEURO: Alert and oriented x3. PSYCH: Normal mood and affect. Course Course Emergency Course: Patient is able get up and ambulate with a walker. Family feels comfortable taking patient home will stay with her. Will treat her for mild UTI with 1st dose here. Patient also received oral potassium replacement. Vital Signs Vital signs: Vital Signs Temperature 98.4 F 11/30/24 11:10 Pulse Rate 61 11/30/24 11:10 Respiratory Rate 46 H 11/30/24 11:10 Blood Pressure 143/63 H 11/30/24 11:10 Pulse Oximetry 98 11/30/24 11:10 Temperature 98.4 F 11/30/24 11:10 Pulse Rate 59 L 11/30/24 17:30 Respiratory Rate 16 11/30/24 17:30 Blood Pressure 141/62 H 11/30/24 17:30 Pulse Oximetry 95 11/30/24 17:30 Medical Decision Making Vital Signs Vital Signs: Vital Signs Temperature 98.4 F 11/30/24 11:10 Pulse Rate 61 11/30/24 11:10 Respiratory Rate 46 H 11/30/24 11:10 Blood Pressure 143/63 H 11/30/24 11:10 Pulse Oximetry 98 11/30/24 11:10 Temperature 98.4 F 11/30/24 11:10 Pulse Rate 59 L 11/30/24 17:30 Respiratory Rate 16 11/30/24 17:30 Blood Pressure 141/62 H 11/30/24 17:30 Pulse Oximetry 95 11/30/24 17:30 Lab Data 11/30/24 14:15 11/30/24 14:14 Labs: Lab Results 11/30/24 11/30/24 11/30/24 Range/Units 14:14 14:15 15:23 WBC 4.0 L (4.5-10.0) K/mm3 RBC 3.26 L (4.2-5.4) M/mm3 Hgb 10.1 L (12.0-15.0) g/dL Hct 31.2 L (37.0-47.0) % MCV 95.7 (80-100) fl MCH 31.0 (26-34) pg MCHC 32.4 (32-36) g/dl RDW 15.9 H (11.5-14.5) % Plt Count 121 L (150-375) k/mm3 MPV 11.3 H (7.4-10.4) fl Immature Gran % (Auto) 0.2 (0-0.5) % Neut % (Auto) 69.9 (45.5-73.1) % Lymph % (Auto) 16.2 L (18.3-44.2) % [place] % (Auto) 12.0 H (2.6-8.5) % Eos % (Auto) 1.5 (0-4.4) % Baso % (Auto) 0.2 (0.2-1.2) % Lymph # (Auto) 0.65 L (0.9-3.2) K/mm3 [place] # (Auto) 0.5 (0.1-0.6) K/mm3 Eos # (Auto) 0.1 (0-0.3) K/mm3 Baso # (Auto) 0.0 (0.0-0.1) K/mm3 Abs Immat Gran (auto) 0.01 (0.00-0.031) K/mm3 Absolute Neuts (auto) 2.8 (1.3-6.7) K/mm3 Absolute Nucleated RBC 0.000 (0.0-0.012) K/mm3 Nucleated RBC % 0.0 (0.0-0.2) % % Immature Plt Fraction 6.2 (0.9-11.2) % Sodium 136 L (137-145) mmol/L Potassium 2.9 L (3.4-5.0) mmol/L Chloride 97 L (98-107) mmol/L Carbon Dioxide 33 H (22-30) mmol/L Anion Gap 6 (4-12) mmol/L BUN 10 D (7-17) mg/dL Creatinine 0.70 (0.7-1.0) mg/dL Estim Creat Clear Calc Not Reportable Estimated GFR > 60 (59 - ) Glucose 200 H (65-110) mg/dL Calcium 10.9 H (8.4-10.2) mg/dL Total Bilirubin 0.5 (0.2-1.3) mg/dL AST 24 (14-36) U/L ALT 15 (6-35) U/L Alkaline Phosphatase 68 (38-126) U/L Total Protein 6.2 L (6.3-8.2) g/dL Albumin 3.6 (3.5-5.1) g/dL Urine Color Yellow (Yellow) Urine Appearance Cloudy H (Clear) Urine pH 6.0 (5.0-9.0) Ur Specific [place] 1.016 (1.001-1.035) Urine Protein 1+ H (Negative) mg/dL Urine Glucose (UA) 2+ H (Negative) mg/dL Urine Ketones Negative (Negative) mg/dL Ur Blood (Man) Trace (Negative) Urine Nitrate Negative (Negative) Urine Bilirubin Negative (Negative) Urine Urobilinogen 1.0 (<2.0) mg/dL Add Ur Microanalysis Reviewed Leukocyte Esterase Rfl 1+ H (Negative) GWEN/UL Urine RBC 6-10 H (0-2) /hpf Urine WBC 11-20 H (0-3) /hpf Ur Squamous Epith Cells Occasional (Few) /hpf Uric Acid Crystals Present H (None) /hpf Urine Bacteria None seen /hpf Urine Casts 6-10 Discharge Plan Discharge Clinical Impression: Generalized weakness, Left thumb sprain, Acute hypokalemia, Acute UTI Patient Disposition: Home Condition: Stable Instructions: Urinary Tract Infection in Older Adults (ED) Additional Instructions: You should return to the emergency department if you develop severe nausea and vomiting and are unable to keep liquids down, if you develop severe back/flank or stomach pain, or if your symptoms are not clearly improving at home. Your also not eating well and a becoming more weak. You may need to speak with your primary care physician about obtaining home health or physical therapy. Patient Language: Faroese Prescriptions: New cephalexin 500 mg capsule 500 mg PO Q12H Qty: 10 0RF No Action insulin glargine [Lantus U-100 Insulin] 100 unit/mL solution 14 unit subcut .HS atorvastatin 40 mg Tablet 40 mg PO HS metformin 500 mg Tablet 500 mg PO BID calcium 500 mg Tablet 1,500 mg PO DAILY famotidine 20 mg Tablet 20 mg PO BID lisinopril 10 mg Tablet 10 mg PO DAILY aspirin 81 mg Tablet 81 mg PO DAILY furosemide 20 mg tablet 20 mg PO Q12H PRN (Reason: edema) sertraline 50 mg tablet 50 mg PO Q24H lidocaine [Lidoderm] 5 % Adhesive Patch,Medicated 1 patch transdermal DAILY Qty: 15 0RF magnesium oxide 400 mg (241.3 mg magnesium) Tablet 400 mg PO QAM Qty: 30 0RF hydrocodone-acetaminophen 7.5-325 mg tablet 1 tablet PO Q8H Qty: 15 0RF metoprolol succinate 25 mg tablet extended release 24 hr 25 mg PO DAILY nystatin 100,000 unit/gram powder 1 applic topical DAILY Qty: 30 1RF Follow-up/Referrals: Rendon,Dain Stanford MD [Primary Care Provider] - 1 Week
--- OUTSIDE RECORDS SUMMARY | 2024-11-30 13:18 | XMS_ITS | Clinical Summary ---
Author Organization [facility] Address [address] [place] [id number] Care Team Providers Care Spectroscopist Name Role Phone Dain Rendon MD Primary [...] Cholecystectomy TONSILLECTOMY Tonsillectomy HIP ARTHROPLASTY Hip replacement AR APPENDECTOMY Appendectomy - (Added by TW Conv) AR TONSILLECTOMY PRIMARY/SEC ONDARY <AGE 12 Tonsillectomy - (Added by TW Conv) GALLBLADDER SURGERY Gallbladder Surgery - (Added by TW Conv) HIP SURGERY Hip Surgery - (Added by TW Conv) AR HEMORRHOIDECTOMY INTERNAL RUBBER BAND LIGATIONS Hemorrhoidectomy - (Added by TW Conv) ROTATOR CUFF REPAIR Rotator Cuff Repair - (Added by TW Conv) AR BIOPSY BREAST OPEN INCISIONAL Incisional Breast Biopsy - (Added by TW Conv) AR LAPS ABD PRTM&OMENTUM DX W/WO SPEC BR/WA SPX Laparoscopy (Diagnostic) - (Added by TW Conv) AR CYSTO W/INSERT URETERAL STENT Cystoscopy With Insertion Of Ureteral Stent - (Added by TW Conv) AR SLING OPERATION STRESS INCONTINENCE Vaginal Sling Operation For Stress Incontinence - (Added by TW Conv) AR CMBND ANTERPOST COLPORRAP HY W/CYSTO W/NTRCL RPR Colporrhaphy Combined A-P And Enterocele Repair - (Added by TW Conv) AR COLPOCLEISIS LE FORT TYPE Vaginal Colpocleisis ([place] Procedure) - (Added by TW Conv) AR VAGINECTOMY COMPLETE ENRIQUE JINYN VAGINAL WALL Vaginectomy Complete - (Added by TW Conv) Medical History Medical History Date Comments Hypertension Hypertension Type 2 diabetes mellitus Diabete s type 2 Personal history of other di seases of the circulatory system History of hypertension - (A dded by TW Conv) Personal history of other en docrine, nutritional and metabolic disease History of diabetes mellitus - (Added by TW Conv) skilled nursing current use of aspirin Current use of [...] on file 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] Most Recently Relevant to Health Maintenance Insurance [facility] MEDICARE ADVANTAGE [facility] Address: [address] [place] [phone] [facility] MEDIC[facility] ADVANTAGE [facility] Address: [address] [address] [place] [address] Care Teams Spectroscopist Relationship Specialty Start Date End Date Dain Rendon MD PCP - General 01/02/10
[2024-11-30 14:32] LABS: Hematocrit 31.2 % (37.0-47.0); Hemoglobin 10.1 g/dL (12.0-15.0); Immature Granulocyte Percent A 0.2 % (0-0.5); Immature Platelet Fraction Pct 6.2 % (0.9-11.2); Lymphocytes Absolute Auto 0.65 K/mm3 (0.9-3.2); Mean Corpuscular HGB Conc 32.4 g/dl (32-36); Mean Corpuscular Hemoglobin 31.0 pg (26-34); Mean Corpuscular Volume 95.7 fl (80-100); Nucleated Red Blood Cells Absolute Auto 0.000 K/mm3 (0.0-0.012); Nucleated Red Blood Cells Perc 0.0 % (0.0-0.2); Platelet Count Result 121 k/mm3 (150-375); Red Blood Count 3.26 M/mm3 (4.2-5.4); White Blood Count 4.0 K/mm3 (4.5-10.0)
[2024-11-30 14:42] LABS: Alanine Aminotransferase 15 U/L (6-35); Alkaline Phosphatase 68 U/L (38-126); Aspartate Amino Transferase 24 U/L (14-36); Bilirubin,Total 0.5 mg/dL (0.2-1.3); Blood Urea Nitrogen 10 mg/dL (7-17); Calcium 10.9 mg/dL (8.4-10.2); Chloride 97 mmol/L (98-107); Estimated Glomerular Filt Rate > 60; Glucose 200 mg/dL (65-110); Potassium 2.9 mmol/L (3.4-5.0); Sodium 136 mmol/L (137-145); Total Protein 6.2 g/dL (6.3-8.2)
[2024-11-30 14:54] LABS: Albumin Level 3.6 g/dL (3.5-5.1); Anion Gap 6 mmol/L (4-12); Carbon Dioxide 33 mmol/L (22-30)
[2024-11-30] MEDS: POTASSIUM CHLORIDE 20 MEQ ER TABLET 40 MEQ PO (15:46)
[2024-11-30 16:29] LABS: Add Urine Microscopic? YES; Appearance Urine Cloudy (Clear); Glucose Urine UA 2+ mg/dL (Negative); Leukocyte Esterase Ur 1+ LEU/UL (Negative); Need Manual Microscopic Reviewed; Nitrate Urine Negative (Negative); Specific Grav Ur 1.016 (1.001-1.035)
[2024-11-30] MEDS: CEPHALEXIN 500 MG CAPSULE PO (19:00)
== END 2024-11-30 19:10 | disposition home or self-care (01) ==
PROVIDERS: Emergency Provider Emergency Medicine; PCP Internal Medicine
DX: S63.602A Unspecified sprain of left thumb, initial encounter (principal); N39.0 Urinary tract infection, site not specified; R53.1 Weakness; E87.6 Hypokalemia; J44.9 Chronic obstructive pulmonary disease, unspecified; E11.9 Type 2 diabetes mellitus without complications; Z87.891 Personal history of nicotine dependence; Z79.4 Long term (current) use of insulin; Z79.84 Long term (current) use of oral hypoglycemic drugs; Z79.899 Other long term (current) drug therapy; W18.2XXA Fall in (into) shower or empty bathtub, initial encounter; Y93.E1 Activity, personal bathing and showering
CPT/HCPCS: 36415; 70450; 73130; 80053; 81001; 85025; 85055; 87086; 99284; A9270